=== PATIENT | female | born 1960 | race Caucasian/White ===

== ENCOUNTER 2022-11-07 11:59 | Outpatient (OUT) | payer OTHER, SELFPAY ==
[2022-11-07 12:59] LABS: Basophils Percent Auto 0.8 % (0.2-2.0); Eosinophils Absolute Auto 0.1 10^3/uL (0.0-0.7); Eosinophils Percent Auto 2.5 % (0.9-7.0); Hematocrit 44.1 % (36.0-48.0); Hemoglobin 13.9 g/dL (12.0-16.0); Immature Granulocytes Abs Auto 0.02 10^3/uL (0.00-0.03); Immature Granulocytes Pct Auto 0.4 % (0.0-0.5); Lymphocytes Absolute Auto 1.8 10^3/uL (1.2-3.8); Lymphocytes Percent Auto 34.8 % (20.5-60.0); Mean Corpuscular HGB Conc 31.5 g/dL (29.9-35.2); Mean Corpuscular Volume 91.9 fL (81.0-99.0); Mean Platelet Volume 9.5 fL (9.5-13.5); Monocytes Absolute Auto 0.6 10^3/uL (0.3-0.8); Monocytes Percent Auto 10.8 % (1.7-12.0); Neutrophils Absolute Auto 2.6 10^3/uL (1.4-6.5); Neutrophils Percent Auto 50.7 % (43.0-75.0); Platelet Count 313 10^3/uL (150-450); Red Cell Distribution Width 14.5 % (11.0-15.0); White Blood Count 5.2 10^3/uL (4.0-11.0)
[2022-11-07 13:16] LABS: Alanine Aminotransferase 17 U/L (14-59); Albumin Level 3.8 g/dL (3.4-5.0); Alkaline Phosphatase 59 U/L (46-116); Anion Gap 14.3; Aspartate Amino Transferase 13 U/L (15-37); BUN Creatinine Ratio 26.2; Bilirubin Total 0.3 mg/dL (0.2-1.0); Calcium 9.8 mg/dL (8.5-10.1); Carbon Dioxide 26.7 mmol/L (21.0-32.0); Chloride 100 mmol/L (98-107); Estimated GFR (African America >60 (>=60); Estimated GFR (Non-African Ame >60 (>=60); Globulin 3.9 g/dL; Glucose 100 mg/dL (74-106); Sodium 137 mmol/L (136-145); Total Protein 7.7 g/dL (6.4-8.2)
== END 2022-11-07 12:00 ==
LOC: LAB 12:03
PROVIDERS: PCP Nurse Practitioner; Visit Provider Internal Medicine Hematology & Oncology
DX: C50.912 Malignant neoplasm of unspecified site of left female breast (principal)
CPT/HCPCS: 36415; 80053; 85025

== ENCOUNTER 2022-12-05 07:26 | Outpatient (OUT) | payer OTHER, SELFPAY ==
[2022-12-05 09:55] VITALS: BP 131/84; PULSE 74; RESP 18; TEMP 36.7; O2SAT 97
[2022-12-05] MEDS: DENOSUMAB 60 MG/ML SYRINGE SUBQ (10:03)
--- NOTE | 2022-12-05 10:12 | PC.NURSE ---
Patient is here for prolia injection, she previously had her bloodwork done. She has received Prolia in the past, Injection given, patient tolerated this well. She was observed for 15 minutes after and denies any concerns or complaints. Patient was discharged home.
== END 2022-12-05 07:27 | disposition home or self-care (01) ==
LOC: INF 07:26
PROVIDERS: PCP Nurse Practitioner; Visit Provider Nurse Practitioner
DX: M81.0 Age-related osteoporosis without current pathological fracture (principal); Z85.3 Personal history of malignant neoplasm of breast
CPT/HCPCS: 96372; J0897

== ENCOUNTER 2022-12-19 09:49 | Outpatient (OUT) | payer OTHER, SELFPAY ==
--- NOTE | 2022-12-19 10:01 | XR_ITS ---
[address] [address] Patient Name: SAMPSON MCKENNA MRN: [id number] date: 1960 Sex: F Assigned Patient Location: [facility] Current Patient Location: [facility] Accession/Order Number: [id number] Exam Date: 12/19/2022 10:03 Report Date: 12/19/2022 17:09 At the request of: MARK ANTHONY PATTON Procedure: XR DEXA axial skeleton EXAMINATION: XR DEXA axial skeleton, 12/19/2022 10:03 AM EDT HISTORY: Osteoporosis M81.8 COMPARISON: None. TECHNIQUE: Dual-energy X-ray absorptiometry (DEXA) bone density study performed for the axial skeleton. HISTORY: Osteoporosis M81.8 FINDINGS: Bone mineral density AP spine L2-L4 measures 1.012 g/sq cm. T score -1.6. WHO classification: Osteopenia. Lowest bone mineral densities the right femoral neck measuring 0.771 g/sq cm. T score -1.9. WHO classification: Osteopenia XR/XR DEXA axial skeleton IMPRESSION: Osteopenia. Moderate fracture risk Electronically authenticated by: RANJANA ZHANG Date: 12/19/2022 17:09
== END 2022-12-19 09:50 | disposition home or self-care (01) ==
LOC: RAD 09:49
PROVIDERS: PCP Nurse Practitioner; Visit Provider Internal Medicine Hematology & Oncology
DX: M81.8 Other osteoporosis without current pathological fracture (principal); M85.851 Other specified disorders of bone density and structure, right thigh
CPT/HCPCS: 77080

== ENCOUNTER 2023-05-09 14:37 | Outpatient (OUT) | payer OTHER, SELFPAY ==
[2023-05-09 15:50] LABS: Basophils Percent Auto 0.6 % (0.2-2.0); Eosinophils Absolute Auto 0.1 10^3/uL (0.0-0.7); Eosinophils Percent Auto 1.8 % (0.9-7.0); Hematocrit 43.7 % (36.0-48.0); Hemoglobin 13.8 g/dL (12.0-16.0); Immature Granulocytes Abs Auto 0.01 10^3/uL (0.00-0.03); Immature Granulocytes Pct Auto 0.2 % (0.0-0.5); Lymphocytes Absolute Auto 2.1 10^3/uL (1.2-3.8); Lymphocytes Percent Auto 33.5 % (20.5-60.0); Mean Corpuscular HGB Conc 31.6 g/dL (29.9-35.2); Mean Corpuscular Hemoglobin 28.9 pg (26.7-34.0); Mean Corpuscular Volume 91.4 fL (81.0-99.0); Mean Platelet Volume 9.7 fL (9.5-13.5); Monocytes Absolute Auto 0.6 10^3/uL (0.3-0.8); Monocytes Percent Auto 9.7 % (1.7-12.0); Neutrophils Absolute Auto 3.3 10^3/uL (1.4-6.5); Neutrophils Percent Auto 54.2 % (43.0-75.0); Platelet Count 304 10^3/uL (150-450); Red Blood Count 4.78 10^6/uL (4.20-5.40); Red Cell Distribution Width 13.7 % (11.0-15.0); White Blood Count 6.2 10^3/uL (4.0-11.0)
[2023-05-09 15:57] LABS: Alanine Aminotransferase 28 U/L (14-59); Albumin Globulin Ratio 1.1; Albumin Level 3.9 g/dL (3.4-5.0); Alkaline Phosphatase 47 U/L (46-116); Anion Gap 14.3; Aspartate Amino Transferase 17 U/L (15-37); BUN Creatinine Ratio 20.9; Bilirubin Total 0.4 mg/dL (0.2-1.0); Calcium 9.4 mg/dL (8.5-10.1); Carbon Dioxide 26.5 mmol/L (21.0-32.0); Chloride 102 mmol/L (98-107); Estimated GFR (African America >60 (>=60); Estimated GFR (Non-African Ame >60 (>=60); Globulin 3.7 g/dL; Glucose 110 mg/dL (74-106); Potassium 4.8 mmol/L (3.5-5.1); Sodium 138 mmol/L (136-145); Total Protein 7.6 g/dL (6.4-8.2)
== END 2023-05-09 14:38 | disposition home or self-care (01) ==
LOC: LAB 14:40
PROVIDERS: PCP Nurse Practitioner; Visit Provider Internal Medicine Hematology & Oncology
DX: M81.8 Other osteoporosis without current pathological fracture (principal); C50.912 Malignant neoplasm of unspecified site of left female breast
CPT/HCPCS: 36415; 80053; 85025

== ENCOUNTER 2023-09-29 10:33 | Outpatient (OUT) | payer OTHER, SELFPAY ==
--- NOTE | 2023-09-29 10:50 | MM_ITS ---
Patient Name: SAMPSON MCKENNA MR#: [id number] : 1960 Exam Date: 09/29/2023 Ordering Doctor: KAMILA Aguirre CNP RADIOLOGY REPORT PROCEDURE: MM TOMOSYNTHESIS DIAGNOSTIC BI COMPARISON: MG MAMM DIAGNOSTIC 3D SENIA CAD, 08/14/2022. MG MAMM DIAGNOSTIC 3D SENIA CAD, 08/15/2021. MG MAMM SENIA DIAG W CAD, 02/07/2021. MG MAMM SENIA SCRN W CAD DIG, 10/30/2012. INDICATIONS: History Of Breast Cancer Calculator Name NCI Breast Cancer Risk Assessment Tool 5 Year Breast Cancer Risk 3.90% Lifetime Breast Cancer Risk 17.60% Personal Breast Cancer No Personal Ovarian Cancer No Treatments None Family Cancers Mother with breast cancer at age 40; Father with kidney cancer at age 60. LOCATION: [facility] BREAST COMPOSITION: There are scattered areas of fibroglandular density. FINDINGS: DIAGNOSTIC CATEGORY 2--BENIGN FINDING: RIGHT BREAST: No significant suspicious finding. Scattered benign-appearing calcifications are present. Scattered benign-appearing nodules are present. Stable biopsy marker clips. No significant change has occurred. LEFT BREAST: No significant suspicious finding. Scattered benign-appearing calcifications are present. Stable surgical changes. No significant change has occurred. RECOMMENDATIONS: ROUTINE MAMMOGRAM AND CLINICAL EVALUATION IN 12 MONTHS. PLEASE NOTE: A NORMAL MAMMOGRAM DOES NOT EXCLUDE THE POSSIBILITY OF BREAST CANCER. A CLINICALLY SUSPICIOUS PALPABLE LUMP SHOULD BE BIOPSIED. Dictated by: Kwasi Saleem M.D. on 09/29/2023 at 13:45 Approved by: Kwasi Saleem M.D. on 09/29/2023 at 14:04
[2023-09-29 12:10] LABS: Basophils Percent Auto 0.5 % (0.2-2.0); Eosinophils Absolute Auto 0.2 10^3/uL (0.0-0.7); Eosinophils Percent Auto 2.6 % (0.9-7.0); Hematocrit 44.2 % (36.0-48.0); Hemoglobin 14.2 g/dL (12.0-16.0); Immature Granulocytes Abs Auto 0.02 10^3/uL (0.00-0.03); Immature Granulocytes Pct Auto 0.4 % (0.0-0.5); Lymphocytes Absolute Auto 1.8 10^3/uL (1.2-3.8); Lymphocytes Percent Auto 32.2 % (20.5-60.0); Mean Corpuscular HGB Conc 32.1 g/dL (29.9-35.2); Mean Corpuscular Volume 90.2 fL (81.0-99.0); Mean Platelet Volume 10.9 fL (9.5-13.5); Monocytes Absolute Auto 0.5 10^3/uL (0.3-0.8); Monocytes Percent Auto 9.1 % (1.7-12.0); Neutrophils Absolute Auto 3.2 10^3/uL (1.4-6.5); Neutrophils Percent Auto 55.2 % (43.0-75.0); Platelet Count 243 10^3/uL (150-450); Red Cell Distribution Width 13.2 % (11.0-15.0); White Blood Count 5.7 10^3/uL (4.0-11.0)
[2023-09-29 12:26] LABS: Creatinine Urine Random 22.44 mg/dL (20.00-300.00)
[2023-09-29 12:43] LABS: Bilirubin Urine NEGATIVE (NEGATIVE); Blood Urine NEGATIVE (NEGATIVE); Clarity Urine CLEAR (CLEAR); Color Urine LT. YELLOW (YELLOW); Glucose Urine UA NEGATIVE (NEGATIVE); Ketones Urine NEGATIVE (NEGATIVE); Leukocyte Esterase Urine NEGATIVE (NEGATIVE); Nitrite Urine NEGATIVE (NEGATIVE); Protein Urine NEGATIVE (NEG/TRACE); Urine Microscopic Indicated NO; Urobilinogen Urine 0.2 EU/dL (0.2-1.0); pH Urine 5.5 (5.0-9.0)
[2023-09-29 12:53] LABS: Microalbumin Urine Random <1.3 mg/dL (<=30.0)
[2023-09-29 13:14] LABS: Alanine Aminotransferase 27 U/L (14-59); Albumin Globulin Ratio 1.1; Albumin Level 3.8 g/dL (3.4-5.0); Alkaline Phosphatase 109 U/L (46-116); Anion Gap 15.4; Aspartate Amino Transferase 22 U/L (15-37); BUN Creatinine Ratio 20.3; Bilirubin Total 0.3 mg/dL (0.2-1.0); Calcium 9.9 mg/dL (8.5-10.1); Carbon Dioxide 24.3 mmol/L (21.0-32.0); Chloride 101 mmol/L (98-107); Chol HDL Ratio 5.5; Cholesterol 244 mg/dL (<=200); Estimated GFR (African America >60 (>=60); Estimated GFR (Non-African Ame >60 (>=60); Globulin 3.6 g/dL; Glucose 112 mg/dL (74-106); HDL Cholesterol 44 mg/dL (40-60); Potassium 4.7 mmol/L (3.5-5.1); Sodium 136 mmol/L (136-145); Thyroid Stimulating Hormone 1.268 uIU/mL (0.358-3.740); Total Protein 7.4 g/dL (6.4-8.2); Triglycerides 130 mg/dL (<=150)
[2023-09-29 14:16] LABS: Estimated Average Glucose 137 mg/dL; Glycohemoglobin A1C 6.4 % (4.5-6.2)
[2023-09-29 14:26] LABS: Free T4 1.32 ng/dL (0.76-1.46)
== END 2023-09-29 10:34 | disposition home or self-care (01) ==
LOC: MAMMO 10:34
PROVIDERS: PCP Nurse Practitioner; Visit Provider Nurse Practitioner
DX: Z12.31 Encounter for screening mammogram for malignant neoplasm of breast (principal); C50.912 Malignant neoplasm of unspecified site of left female breast; Z85.3 Personal history of malignant neoplasm of breast; M81.8 Other osteoporosis without current pathological fracture; K21.9 Gastro-esophageal reflux disease without esophagitis; E03.9 Hypothyroidism, unspecified; R73.03 Prediabetes; E55.9 Vitamin D deficiency, unspecified; Z80.3 Family history of malignant neoplasm of breast; Z80.51 Family history of malignant neoplasm of kidney
CPT/HCPCS: 36415; 77066; 80053; 80061; 81003; 82043; 82306; 82570; 83036; 84439; 84443; 85025; G0279

== ENCOUNTER 2023-11-13 12:35 | Outpatient (OUT) | payer OTHER, SELFPAY ==
--- OUTSIDE RECORDS SUMMARY | 2023-11-13 12:49 | XMS_ITS | CCD ---
Author Organization [facility] Care Team Providers Care Sandblast Operator Name Role Phone David Tamez Primary Care Provider Rosemary ROSS, Rodrick Unavailable Wilman ORTEGA, Stephanie Unavailable [phone] O[address] WONGN.TIRE BAGGER, Samson Unavailable Varun ROSS, Brad Unavailable RODRICK PATTON Admitting Unavailable DR LALO SALEEM Consulting Unavailable ABHYMANAN, RODRICK Attending Unavailable AICHHOLZ, TIRE BAGGER CURTIS Primary Care Unavailable HYMANAN RODRICK Consulting Unavailable AICHHOLZ, TIRE BAGGER CURTIS Attending Unavailable AICHHOLZ, TIRE BAGGER CURTIS Consulting Unavailable AICHHOLZ, TIRE BAGGER CURTIS Primary Care Unavailable AICHHOLZ, TIRE BAGGER CURTIS Admitting Unavailable AICHHOLZ, TIRE BAGGER CURTIS Attending Unavailable AICHHOLZ, TIRE BAGGER CURTIS Consulting Unavailable AICHHOLZ, TIRE BAGGER CURTIS Primary Care Unavailable AICHHOLZ, TIRE BAGGER CURTIS Admitting Unavailable AICHHOLZ, TIRE BAGGER CURTIS Primary Care Unavailable DR RANJANA ZHANG V Consulting Unavailable FAWWAD, ESCOBAR H Admitting Unavailable FAWWAD, ESCOBAR H Attending Unavailable FAWWAD, ESCOBAR H Consulting Unavailable DR RANJANA ZHANG V Consulting Unavailable POOL, GAYATRI Admitting Unavailable AICHHOLZ, TIRE BAGGER CURTIS Primary Care Unavailable POOL, GAYATRI Attending Unavailable POOL, GAYATRI Consulting Unavailable AICHHOLZ, TIRE BAGGER CURTIS Attending Unavailable AICHHOLZ, TIRE BAGGER CURTIS Primary Care Unavailable AICHHOLZ, TIRE BAGGER CURTIS Admitting Unavailable AICHHOLZ, TIRE BAGGER CURTIS Attending Unavailable AICHHOLZ, TIRE BAGGER CURTIS Primary Care Unavailable AICHHOLZ, TIRE BAGGER CURTIS Consulting Unavailable AICHHOLZ, TIRE BAGGER CURTIS Admitting Unavailable AICHHOLZ, TIRE BAGGER CURTIS Primary Care Unavailable LE CENTER, DR RANJANA Crawford Consulting Unavailable GAYATRI LANZA Admitting Unavailable GAYATRI LANZA Attending Unavailable GAYATRI LANZA Consulting Unavailable David Tamez Primary Care Provider ABHYANKAR, RODRICK Referring Unavailable SUSANAAR, RODRICK Attending Unavailable DAVID TAMEZ Primary Care Unavailable DAVID TAMEZ Primary Care Unavailable ABHYANKAR, RODRICK Referring Unavailable ABHYANKAR, RODRICK Attending Unavailable DAVID TAMEZ Primary Care Unavailable ABHYANKAR, RODRICK Referring Unavailable AICJOSH, CURTIS Attending Unavailable Allergies Allergy Classification Reported Allergen(s) Allergy Type Date of Onset Reaction(s) Facility (8 sources) Codeine; Translations: [CODEINE] Drug Allergy 08-26-2019 Vomiting [facility] (8 sources) Adhesive Tape-Silicones; Translations: [ADHESIVE TAPE-SILICONES] Drug Allergy 09-20-2019 Rash, Itching [facility] (1 source) Adhesive bandage Drug allergy (disorder) 09-14-2019 [facility] (1 source) Codeine Drug Allergy 08-26-2019 [facility] Repository Medications Completed/Discontinued Medications Medication Drug Class(es) Dates Sig (Normalized) Sig (Original) anastrozole 1 mg oral tablet (8 sources) Aromatase Inhibitor Start: 11-08-2021 End: 11-29-2022 anastrozole (ARIMIDEX) 1 mg tablet Indications: Invasive ductal carcinoma of left breast (HCC) TAKE 1 TABLET ONCE DAILY 90 tablet 3 11/29/2022 Active Comment on above: Take 1 tablet by inessa th once daily. TAKE 1 TABLET ONCE D AILY Biotin (7 sources) BIOTIN ORAL Take by mouth. 0 Active Comment on above: Take by mouth. calcium carbonate 1000 mg oral tablet (7 sources) take 1000 mg by mouth once daily calcium carbonate (CALCIUM 500 ORAL) Take 1,000 mg by mouth once daily. 0 Active Comment on above: Take 1,000 mg by inessa th once daily. cholecalciferol 0.125 mg oral tablet (7 sources) Vitamin D take 2 tablets by mouth twice daily cholecalciferol (VITAMIN D3) 5,000 unit tab Take 10,000 Units by mouth twice daily. 0 Active Comment on above: Take 10,000 Units by mouth twice daily. famotidine 20 mg oral tablet (7 sources) Histamine-2 Receptor Antagonist take 1 tablet by mouth twice daily famotidine (PEPCID) 20 mg tablet Take 20 mg by mouth twice daily. 0 Active Comment on above: Take 20 mg by mouth twice daily. fexofenadine (4 sources) Histamine-1 Receptor Antagonist fexofenadine HCl (FEXOFENADINE ORAL) Take by mouth. 0 Active Comment on above: Take by mouth. hydrOXYzine hydrochloride 25 mg oral tablet (7 sources) Antihistamine Start: 07-17-2020 take 1 tablet by mouth once daily at bedtime hydrOXYzine HCl (ATARAX) 25 mg tablet Take 1 tablet by mouth daily at bedtime. 30 tablet 1 07/17/2020 Active Comment on above: Take 1 tablet by inessa th daily at bedtime. levothyroxine sodium 0.075 mg oral tablet (7 sources) l-Thyroxine take 1 tablet by mouth once daily before breakfast levothyroxine (SYNTHROID) 75 mcg tablet Take 75 mcg by mouth daily before breakfast. 0 Active Comment on above: Take 75 mcg by mouth daily before breakfast. loratadine 10 mg oral capsule (7 sources) take 1 capsule by mouth once daily loratadine 10 mg cap Take 10 mg by mouth once daily. 0 Active Comment on above: Take 10 mg by mouth once daily. Magnesium (7 sources) Magnesium 250 mg tab Take 250 mg by mouth. 0 Active Comment on above: Take 250 mg by mouth . Turmeric extract (7 sources) TURMERIC ORAL Ta ke by mouth. 0 Active Comment on above: Take by mouth. Vitamin B Complex (7 sources) vitamin B comple x (B COMPLEX 1 ORAL) Take by mouth. 0 Active Comment on above: Take by mouth. Problems Active Problems Problem Classification Problem Date Documented Da te Episodic/Chronic Cancer of breast (14 sources) Infiltrating duct carcinoma of breast; Translations: [Malignant neoplasm of unspecified site of left female breast] Onset: 10-07-2019 10-07-2019 Chronic Nutritional deficiencies (1 source) Vitamin D deficiency, unspecified; Translations: [VITAMIN D DEFICIENCY UNSPECIFIED] Onset: 09-06-2022 Chronic Osteoporosis (11 sources) Osteoporosis; Translations: [Other osteoporosis without current pathological fracture] Onset: 01-01-2021 01-01-2021 Chronic Other screening for suspected conditions (not mental disorders or infectious disease) (4 sources) Encounter for screening for malignant neoplasm of cervix; Translations: [ENC SCREENING MALIG NEOPLASM CERV] Onset: 08-29-2022 Episodic Past or Other Problems Problem Classification Problem Date Documented Da te Episodic/Chronic Cancer of breast (1 source) Personal history of malignant neoplasm of breast; Translations: [PERS HX MALIGNANT NEOPLASM BREAST] Onset: 05-23-2022 Episodic Fracture of lower limb (5 sources) Displaced fracture of proximal phalanx of right lesser toe(s), subsequent encounter for fracture with routine healing; Translations: [Displaced fracture of proximal phalanx of right lesser toe(s), initial encounter for closed fracture] Onset: 12-17-2021 Episodic Other connective tissue disease (4 sources) Pain in right foot; Translations: [PAIN IN RIGHT FOOT] Onset: 12-25-2021 Episodic Results Test Name Value Interpretation Reference Range Facility [facility] TINY MCKENNA ([id number]) 1960 F Date Time Provider Department 07/15/23 KOSTAS FALK During your visit today, we recorded the following information about you: Kostas Falk RN 07/15/2023 3:26 PM Signed Pt sent MyChart with Brand Marketing Specialist information: The post acute care registered nurse is Dr Aidan Resendiz, phone is [phone] email is [email or web address] I have another consultation with him on Friday, 07/18. Thank you, Annette Mckenna 05/15/23 Office Note per Cipriano: She needs clearance from me for dental work due to her Prolia use. Her last dose of Prolia was in 11/2022, next is planned for 06/2023. If she is going to proceed with the dental work, she should hold June's dose and wait until for the procedure Cipriano: pt is requesting the letter of clearance. Pended letter; please review under communication and let me know if you would like any changes. Rodrick Patton MD 07/15/2023 6:41 PM Signed She can proceed from my standpoint as long as you take precautions in wound healing for her jaw which I'm sure you're aware of. Just add that line and should be great - Thanks! Kostas Falk RN 07/16/2023 9:26 AM Signed Note completed, review and signed. Faxed to Dr Resendiz office. Kostas Falk RN Allergies As of Date: 07/15/2023 Noted Allergy Reaction ADHESIVE TAPE-SILICONES 09/20/2019 2 - Rash 9 - Itching CODEINE 08/26/2019 11 - Vomiting Date Reviewed: 05/15/2023 Reviewed by: Paulina Fry - Fully Assessed Reason for Visit: Brand Marketing Specialist [Other] Prescriptions as of 07/16/2023 - anastrozole (ARIMIDEX) 1 mg tablet TAKE 1 TABLET ONCE DAILY - fexofenadine HCl (FEXOFENADINE ORAL) Take by mouth. - Magnesium 250 mg tab Take 250 mg by mouth. - calcium carbonate (CALCIUM 500 ORAL) Take 1,000 mg by mouth once daily. - hydrOXYzine HCl (ATARAX) 25 mg tablet Take 1 tablet by mouth daily at bedtime. - vitamin B complex (B COMPLEX 1 ORAL) Take by mouth. - TURMERIC ORAL Take by mouth. - BIOTIN ORAL Take by mouth. - levothyroxine (SYNTHROID) 75 mcg tablet Take 75 mcg by mouth daily before breakfast. - loratadine 10 mg cap Take 10 mg by mouth once daily. - famotidine (PEPCID) 20 mg tablet Take 20 mg by mouth twice daily. - cholecalciferol (VITAMIN D3) 5,000 unit tab Take 10,000 Units by mouth twice daily. Problem List As Of Date 07/15/2023 Noted Resolved Invasive ductal carcinoma of left breast (HCC) *10/07/2019 Other osteoporosis without current pathological*01/02/20 21 Letter Text Encounter Status:Closed by KOSTAS FALK on 07/16/23 [facility] 05-15-2023 [facility] Visit (SP) Office ([place]) TINY MCKENNA ([id number]) 1960 F Date Time Provider Department 05/15/23 10:30 AM RODRICK PATTON During your visit today, we recorded the following information about you: Temperature Pulse Respiration Blood pressure 97.8 degrees 71/minute 18/minute 137/89 Weight Height 68.2 kg 1.64 m Rodrick Patton MD 05/15/2023 8:36 PM Signed NAME: Tiny Mckenna CLINIC NO.: [id number] DATE OF SERVICE: May 15, 2023 ([facility]) Some elements in this clinic note that are critical to medical decision making have been carefully reviewed and included from a prior clinic note dated: November 14, 2022 (Rosemary) Referring Provider: Dr. 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 Tumor was in the axillary tail with no clinical evidence of axillary LN's. OncotypeDX RS (49) was High and therefore we gave her neoadjuvant therapy after discussion at tumor board. She had had an excellent clinical response to neoadjuvant chemotherapy. 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 She completed adjuvant radiation on 04/04/2020 and also adjuvant Xeloda 1500 mg BID x 14 days every 21 day cycle for 8 cycles. (EXTENET). 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 Dose reduction has helped significantly although she continued to have issues with constipation. She additionally has had palpable hepatomegaly of unclear etiology - this was not palpable on exam 11/22/2021. Repeat Dexa in 11/2022 PLAN: RTC in 6 months for labs and exam Hold Anastrozole for 2 weeks. Hold Prolia until dental procedure is completed and resume after next DXA in 12/2023 DXA ordered, scheduled for 12/2023 at [facility]. HPI: Case History: 06/05/2020- 11/13/2020: adjuvant Xeloda 1500 mg BID X 14 days every 21 days x 8 cycles; dose reduced to 1000mg BID x 14 days on and 7 days off with cycle 5. 03/08/2020 - 04/04/2020: adjuvant radiation Left breast 4005cGy in 15 fractions with surgical cavity boost 1000 cGy in 5 fractions 10/11/2019 - 12/13/2019: Neoadjuvant taxotere + cytoxan ?4 cycles 09/30/2019 bilateral MRI breast: Enhancing mass at the site of palpable concern at the superior slightly medial left breast. Within the left breast at approximately the 11:00 position at the site of palpable concern there is a lobulated mass like area measuring 2.1 x 2.8 x 2.3 cm. This shows mixed signal and there is associated enhancement. On the sagittal sequence the lesion extends close to the pectoralis muscle. There are axillary lymph nodes with fatty luis angel. No suspicious MRI findings on the right breast. 08/26/2019 bilateral diagnostic mammography: [facility]. Right breast with mild architectural distortion which improves with rolled views, likely related to implant removal. 1.5 cm rounded mass upper breast on MLO projection. Ultrasound shows at 11:00 a 1.3 x 1.6 x 1.2 cm hypoechoic mass with acoustic shadowing. Left breast with mild architectural distortion which improves with rolled views, likely related to implant removal. Corresponding to the patient's palpable mass, demarcated with a triangle marker is a 2 cm oval lobular mass upper breast on MLO projection. Ultrasound shows at 12:00 a 1.9 x 1.8 x 2.0 cm lobular hard hypochromic mass with mild acoustic shadowing. Core biopsy was recommended. Updated Visit, May 15, 2023: Delia returns today with Garrett. She is doing fine with the Anastrozole, other than feeling much more fatigued the past few months. I would advise her to hold the Anastrozole for 2 weeks to see if there is improvement, and if none she can restart it after that. If this does roller turner to be the cause, we will plan to switch to an alternative. She feels she is sleeping okay. Wakes up feeling very groggy, but does not have any problems with falling asleep during the day. Denies noticing any severe drowsiness while driving. She needs clearance from me for dental work due to her Prolia use. Her last dose of Prolia was in 11/2022, next is planned for 06/2023. If she is going to proceed with the dental work, she should hold June's dose and wait until for the procedure. She reports some weight gain despite continuing Keto diet and intermittent fasting. She has not been exercising as frequently. I recommended looking out for any signs of RACHEAL. Reports increased s (more content not included)... Normal [facility] ([id number]) 1960 F Date Time Provider Department 05/15/23 [facility] During your visit today, we recorded the following information about you: Lamont Christine 05/15/2023 11:29 AM Signed DXA ordered, scheduled for 12/2023 at [facility]. CIPRIANO: Patient just had a DEXA scan this year, November 2022 so she will not be due until 2024 - also insurances typically only cover every 2 years. Is there a reason we are doing earlier? Also, patient would like her labs drawn at [place] prior to 6 month follow up due to insurance purposes. Can you please place her labs orders and I will have those mailed to her? Thanks! Rodrick Mckenzie MD 05/15/2023 1:04 PM Signed Orders entered! thanks Lamont Christine 05/15/2023 4:42 PM Signed OK for DEXA to be 2024 or is she having something new going on where it needs sooner? Rodrick Mckenzie MD 05/15/2023 4:54 PM Signed Sorry - 2024 is good Lamont Christine 05/16/2023 10:05 AM Signed Patient notified and in agreement. Mailed lab orders to her at her request. Lamont Christine Allergies As of Date: 05/15/2023 Noted Allergy Reaction ADHESIVE TAPE-SILICONES 09/20/2019 2 - Rash 9 - Itching CODEINE 08/26/2019 11 - Vomiting Date Reviewed: 05/15/2023 Reviewed by: Paulina Fry - Fully Assessed Reason for Visit: Orders [681] Primary Visit Diagnosis:Invasive ductal carcinoma of left breast (HCC) [C50.912] Other Visit Diagnosis:Other osteoporosis without current pathological fracture [M81.8] Order(s):COMP METABOLIC PANEL [SQCMP] Order #: [id number] FUTURE CBC + DIFF [SQCBCDIF] Order #: [id number] FUTURE CA 15-3 BLD [JBCJ918] Order #: [id number] FUTURE CA 27.29 BLOOD [[id number]] Order #: [id number] FUTURE VITAMIN D 25 HYDROXY [SQVITD] Order #: [id number] FUTURE Prescriptions as of 05/16/2023 - anastrozole (ARIMIDEX) 1 mg tablet TAKE 1 TABLET ONCE DAILY - fexofenadine HCl (FEXOFENADINE ORAL) Take by mouth. - Magnesium 250 mg tab Take 250 mg by mouth. - calcium carbonate (CALCIUM 500 ORAL) Take 1,000 mg by mouth once daily. - hydrOXYzine HCl (ATARAX) 25 mg tablet Take 1 tablet by mouth daily at bedtime. - vitamin B complex (B COMPLEX 1 ORAL) Take by mouth. - TURMERIC ORAL Take by mouth. - BIOTIN ORAL Take by mouth. - levothyroxine (SYNTHROID) 75 mcg tablet Take 75 mcg by mouth daily before breakfast. - loratadine 10 mg cap Take 10 mg by mouth once daily. - famotidine (PEPCID) 20 mg tablet Take 20 mg by mouth twice daily. - cholecalciferol (VITAMIN D3) 5,000 unit tab Take 10,000 Units by mouth twice daily. Problem List As Of Date 05/15/2023 Noted Resolved Invasive ductal carcinoma of left breast (HCC) *10/07/2019 Other osteoporosis without current pathological*01/02/20 21 Encounter Status:Closed by LAMONT CHRISTINE on 05/16/23 [facility] CNOVSP[facility] 11-14-2022 [facility] Visit (SP) Office ([place]) TINY MCKENNA ([id number]) 1960 F Date Time Provider Department 11/14/22 10:00 AM RODRICK PATTON During your visit today, we recorded the following information about you: Temperature Pulse Respiration Blood pressure 97.8 degrees 68/minute 16/minute 128/80 Weight Height 64.6 kg 1.64 m Rodrick Patton MD 11/14/2022 11:47 AM Signed NAME: Tiny Mckenna CLINIC NO.: [id number] DATE OF SERVICE: November 14, 2022 ([facility]) Some elements in this clinic note that are critical to medical decision making have been carefully reviewed and included from a prior clinic note dated: May 16, 2022 ([facility]) Referring Provider: Dr. 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 Tumor was in the axillary tail with no clinical evidence of axillary LN's. OncotypeDX RS (49) was High and therefore we gave her neoadjuvant therapy after discussion at tumor board. She had had an excellent clinical response to neoadjuvant chemotherapy. 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 She completed adjuvant radiation on 04/04/2020 and also adjuvant Xeloda 1500 mg BID x 14 days every 21 day cycle for 8 cycles. (EXTENET). 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 Dose reduction has helped significantly although she continued to have issues with constipation. She additionally has had palpable hepatomegaly of unclear etiology - this was not palpable on exam 11/22/2021. Repeat Dexa in 11/2022 PLAN: RTC in 6 months for labs and examine Continue Anastrozole. Continue Prolia - at [facility] every 6 months Will order Dexa at next visit. TREATMENT TO DATE: 3. 06/05/2020- 11/13/2020: adjuvant Xeloda 1500 mg BID X 14 days every 21 days x 8 cycles; dose reduced to 1000mg BID x 14 days on and 7 days off with cycle 5. 2. 03/08/2020-04/04/2020: adjuvant radiation Left breast 4005cGy in 15 fractions with surgical cavity boost 1000 cGy in 5 fractions 1. 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 Mammogram in July was negative. Got back from a wonderful trip to [place] and [place]. Updated Visit, May 16, 2022: Returns with Garrett. Survived COVID infection from end of March. Otherwise is doing well. No joint aches or pains from Arimidex. [id number] a few days ago at age 89 so some family stress. Otherwise doing well. Still hasn't been approved for Prolia from January. 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 After discussion at multidisciplinary tumor board, we gave her neoadjuvant chemotherapy with excellent response noted at time of surgery however, had residual 1.5 cm ER + tumor and so completed extended adjuvant therapy following radiation according to EXTENET trial through 10/2020. She is doing very well. Her Garrett was unable to accompany her today. We reviewed her Mammograms with right axillary tail stable density noted on report which is not not palpable on exam completed today. Looks like she has lost weight Blood sugars are still elevated despite fasting. She may need to pursue this with her PCP. I recall the concern for fatty liver in the past but she is taken extensive measures to change her diet in order to correct this. It is likely worthwhile to look into this more. She will pursue this with her PCP. Updated Visit, May 24, 2021: Delia is generally doing well. But is anxious about her health insurance changes that might push her out of the [facility] system. I reassured her that she will still be able to obtain good care if she had to switch. Needs to figure out insurance and rescheduling her mamograms - will need prolia outside of [facility]. Chaperoned breast exam was completed today. Updated Visit, February 19, 2021: Doing well overall and we've reviewed mammograms that show some new benign calcification of the right breast as well as surgical changes in the left. Will obtain 6 month mammography for repeat. 12/18/2020 Bone density + osteoporosis of the spine with high risk of fracture. Scheduled for Prolia today and has been taking Vit D + Calcium. Joint pain and aches (more content not included)... Normal [facility] David 11-07-2022 [facility] BALATINY Mackay ([id number]) 1960 F Date Time Provider Department 11/07/22 KOSTAS FALK During your visit today, we recorded the following information about you: Ksotas Falk RN 11/07/2022 11:53 AM Signed Pt requests lab orders faxed to [facility]. Done Kostas Falk RN Allergies As of Date: 11/07/2022 Noted Allergy Reaction ADHESIVE TAPE-SILICONES 09/20/2019 2 - Rash 9 - Itching CODEINE 08/26/2019 11 - Vomiting Date Reviewed: 05/16/2022 Reviewed by: Magdalena Chacon Ma - Fully Assessed Reason for Visit: Orders [681] Prescriptions as of 11/07/2022 - anastrozole (ARIMIDEX) 1 mg tablet Take 1 tablet by mouth once daily. - Magnesium 250 mg tab Take 250 mg by mouth. - calcium carbonate (CALCIUM 500 ORAL) Take 1,000 mg by mouth once daily. - hydrOXYzine HCl (ATARAX) 25 mg tablet Take 1 tablet by mouth daily at bedtime. - vitamin B complex (B COMPLEX 1 ORAL) Take by mouth. - TURMERIC ORAL Take by mouth. - BIOTIN ORAL Take by mouth. - levothyroxine (SYNTHROID) 75 mcg tablet Take 75 mcg by mouth daily before breakfast. - loratadine 10 mg cap Take 10 mg by mouth once daily. - famotidine (PEPCID) 20 mg tablet Take 20 mg by mouth twice daily. - cholecalciferol (VITAMIN D3) 5,000 unit tab Take 10,000 Units by mouth twice daily. Problem List As Of Date 11/07/2022 Noted Resolved Invasive ductal carcinoma of left breast (HCC) *10/07/2019 Other osteoporosis without current pathological*01/02/20 Encounter Status:Closed by KOSTAS FALK on 11/07/22 Normal [facility] PAP ACOG PANEL 2: 30 to 66on 09-05-2022 . . Normal [facility] Comment on above: Result Comment: Perf ormed at: [facility] Performed By: #### [id number] #### [employer] [facility] [address] [place] [address] Dr. Shashi Cohen Age Gdln ACOG Testing 30-65 Normal [facility] Comment on above: Performed By: #### [id number] #### [facility] [address] [place] [address] Dr. Shashi Cohen DIAGNOSIS: Comment Normal [facility] Comment on above: Result Comment: NEGA TIVE FOR INTRAEPITHELIAL LESION OR MALIGNANCY. Performed at: WB Performed By: #### [id number] #### [facility] [address] [place] [address] Dr. Shashi Cohen HPV Aptima Negative Normal Negative [facility] Comment on above: Result Comment: This nucleic acid amplification test detects fourteen high-risk HPV types (16,18,31,33,35,39,45,51,52,56,58,59,66,68) without differentiation. Performed at: =G Performed By: #### [id number] #### [facility] [address] [place] [address] Dr. Shashi Cohen HPV Genotype Reflex Comment Normal [facility] Comment on above: Result Comment: Crit eria not met, HPV Genotype not performed. Performed at: WB Performed By: #### [id number] #### [facility] [address] [place] [address] Dr. Shashi Cohen Methodology: Comment Normal [facility] Comment on above: Result Comment: This liquid based ThinPrep(R) pap test was screened with the use of an image guided system. Performed at: WB Performed By: #### [id number] #### [facility] [address] [place] [address] Dr. Shashi Cohen Note: Comment Normal [facility] Comment on above: Result Comment: The Pap smear is a screening test designed to aid in the detection of premalignant and malignant conditions of the uterine cervix. It is not a diagnostic procedure and should not be used as the sole means of detecting cervical cancer. Both false-positive and false-negative reports do occur. . Performed at: WB Performed By: #### [id number] #### [facility] [address] [place] [address] Dr. Shashi Cohen Performed by: Comment Normal [facility] Comment on above: Result Comment: Sujata Shahid, Soda Room Operator (ASCP) Performed at: WB Performed By: #### [id number] #### [facility] [address] [place] [address] Dr. Shashi Cohen Specimen adequacy: Comment Normal [facility] Comment on above: Result Comment: Sati sfactory for evaluation. Performed at: WB Performed By: #### [id number] #### [facility] [address] [place] [address] Dr. Shashi Cohen CBC AUTO DIFFon 08-29-2022 BASO # 0.0 103/ul Normal 0.0-0.1 [facility] Comment on above: Performed By: #### C BC #### [facility] [address] [place] [address] Dr. Shashi Cohen Basophils/100 WBC (Bld) 0.7 % Normal 0.2-2.0 [facility] Comment on above: Performed By: #### C BC #### [facility] [address] [place] [address] Dr. Shashi Cohen EO # 0.1 103/ul Normal 0.0-0.7 [facility] Comment on above: Performed By: #### C BC #### [facility] [address] [place] [address] Dr. Shashi Cohen Eosinophils/100 WBC (Bld) 1.4 % Normal 0.9-7.0 [facility] Comment on above: Performed By: #### C BC #### [facility] [address] [place] [address] Dr. Shashi Cohen Erythrocyte distribution width (RBC) [Ratio] 13.7 % Normal 11.0-15.0 [facility] Comment on above: Performed By: #### C BC #### [facility] [address] [place] [address] Dr. Shashi Cohen Hematocrit (Bld) [Volume fraction] 43.9 % Normal 36.0-48.0 [facility] Comment on above: Performed By: #### C BC #### [facility] [address] [place] [address] Dr. Shashi Cohen Hemoglobin (Bld) [Mass/Vol] 14.1 g/dL Normal 12.0-16.0 [facility] Comment on above: Performed By: #### C BC #### [facility] [address] [place] [address] Dr. Shashi Cohen IG # 0.02 10e3/ul Normal 0.00-0.03 [facility] Comment on above: Performed By: #### C BC #### [facility] [address] [place] [address] Dr. Shashi Cohen IG % 0.4 % Normal 0.0-0.5 [facility] Comment on above: Performed By: #### C BC #### [facility] [address] [place] [address] Dr. Shashi Cohen LYMPH # 1.9 103/ul Normal 1.2-3.8 [facility] Comment on above: Performed By: #### C BC #### [facility] [address] [place] [address] Dr. Shashi Cohen Lymphocytes/100 WBC (Bld) 33.2 % Normal 20.5-60.0 [facility] Comment on above: Performed By: #### C BC #### [facility] [address] [place] [address] Dr. Shashi Cohen MANUAL DIFF REQ NO Normal [facility] Comment on above: Performed By: #### C BC #### [facility] [address] [place] [address] Dr. Shashi Cohen MCH (RBC) [Entitic mass] 28.7 pg Normal 26.7-34.0 [facility] Comment on above: Performed By: #### C BC #### [facility] [address] [place] [address] Dr. Shashi Cohen MCHC (RBC) [Mass/Vol] 32.1 g/dL Normal 29.9-35.2 [facility] Comment on above: Performed By: #### C BC #### [facility] [address] [place] [address] Dr. Shashi Cohen MCV (RBC) [Entitic vol] 89.2 fL Normal 81.0-99.0 [facility] Comment on above: Performed By: #### C BC #### [facility] [address] [place] [address] Dr. Shashi Cohen MONO # 0.5 103/ul Normal 0.3-0.8 [facility] Comment on above: Performed By: #### C BC #### [facility] [address] [place] [address] Dr. Shashi Cohen Monocytes/100 WBC (Bld) 8.8 % Normal 1.7-12.0 [facility] Comment on above: Performed By: #### C BC #### [facility] [address] [place] [address] Dr. Shashi Cohen NEUT # 3.1 103/ul Normal 1.4-6.5 [facility] Comment on above: Performed By: #### C BC #### [facility] [address] [place] [address] Dr. Shashi Cohen Neutrophils/100 WBC (Bld) 55.5 % Normal 43.0-75.0 [facility] Comment on above: Performed By: #### C BC #### [facility] [address] [place] [address] Dr. Shashi Cohen Platelet mean volume (Bld) [Entitic vol] 9.9 fL Normal 9.5-13.5 [facility] Comment on above: Performed By: #### C BC #### [facility] [address] [place] [address] Dr. Shashi Cohen PLT 244 103/ul Normal 150-450 [facility] Comment on above: Performed By: #### C BC #### [facility] [address] [place] [address] Dr. Shashi Cohen RBC 4.92 106/ul Normal 4.20-5.40 [facility] Comment on above: Performed By: #### C BC #### [facility] [address] [place] [address] Dr. Shashi Cohen WBC 5.6 103/ul Normal 4.0-11.0 [facility] Comment on above: Performed By: #### C BC #### [facility] [address] [address] [address] Shashi Cohen GLYCOHEMOGLOBIN A1Con 2022 ADA RECOMMENDATION SEE BELOW Normal [facility] Comment on above: Result Comment: ADA RECOMMENDED LIMIT 4.0 - 6.0 ADA THERAPEUTIC TARGET < 7.0 ACTION SUGGESTED > 7.0 Performed By: #### A 1C ####[facility] [id number] [address]Dr. Shashi Cohen Glucose [Mass/Vol] 126 mg/dL Normal [facility] Comment on above: Performed By: #### A 1C ####[facility] [id number] [address]Dr. Shashi Cohen HbA1c (Bld) [Mass fraction] 6.0 % Normal 4.5-6.2 [facility] Comment on above: Performed By: #### A 1C ####[facility] [id number] [address]Dr. Shashi Cohen LIPID PROFILEon 08-29-2022 CHOL-HDL RATIO NORM SEE BELOW Normal [facility] Comment on above: Result Comment: 3.3 - 4.4 LOW RISK 4.4 - 7.1 AVERAGE RISK 7.1 - 11.0 MODERATE RISK >11.0 HIGH RISK Performed By: #### T SH, CMP, LIPID #### [facility] [address] [address] [address] Shashi Cohen Cholesterol [Mass/Vol] 186 mg/dL Normal <=200 [facility] Comment on above: Performed By: #### T SH, CMP, LIPID #### [facility] [address] [address] [address] Shashi Cohen Cholesterol in HDL [Mass/Vol] 43 mg/dL Normal 40-60 [facility] Comment on above: Performed By: #### T SH, CMP, LIPID #### [facility] [address] [address] [address] Shashi Cohen Cholesterol in LDL [Mass/Vol] 129.2 mg/dL Normal [facility] Comment on above: Performed By: #### T SH, CMP, LIPID #### [facility] [address] [address] [address] Shashi Cohen Cholesterol.total/Ch olesterol in HDL [Mass ratio] 4.3 {ratio} Normal [facility] Comment on above: Performed By: #### T SH, CMP, LIPID #### [facility] [address] [address] [address] Shashi Cohen HDL NORMAL > or = 60 mg/dl - LO W CARDIOVASCULAR RISK <40 mg/dl - HIGH CARDIOVASCULAR RISK Normal [facility] Comment on above: Performed By: #### T SH, CMP, LIPID #### [facility] [address] [address] [address] Shashi Cohen LDL CALC NORMAL SEE BELOW Normal [facility] Comment on above: Result Comment: <100 mg/dl OPTIMAL 100 - 129 mg/dl NEAR OR ABOVE OPTIMAL 130 - 159 mg/dl BORDERLINE HIGH 160 - 189 mg/dl HIGH >190 mg/dl VERY HIGH Performed By: #### T SH, CMP, LIPID #### [facility] [address] [address] [address] Shashi Cohen Triglyceride [Mass/Vol] 69 mg/dL Normal <=150 [facility] Comment on above: Performed By: #### T SH, CMP, LIPID #### [facility] [address] [address] [address] Shashi Cohen VLDL CALC 13.8 mg/dL Normal [facility] Comment on above: Performed By: #### T ANDREEA, CMP, LIPID #### [facility] [address] [address] [address] Shashi Cohen PROF 14(COMP METB)on 023 Albumin [Mass/Vol] 3.9 g/dL Normal 3.4-5.0 [facility] Comment on above: Performed By: #### T SH, CMP, LIPID #### [facility] [address] [place] [address] Dr. Shashi Cohen Albumin/Globulin [Mass ratio] 1.1 {ratio} Normal [facility] Comment on above: Performed By: #### T SH, CMP, LIPID #### [facility] [address] [address] [address] Shashi Cohen ALP [Catalytic activity/Vol] 63 U/L Normal 46-116 [facility] Comment on above: Performed By: #### T SH, CMP, LIPID #### [facility] [address] [address] [address] Shashi Cohen ALT [Catalytic activity/Vol] 23 U/L Normal 14-59 [facility] Comment on above: Performed By: #### T SH, CMP, LIPID #### [facility] [address] [address] [address] Shashi Cohen Anion gap [Moles/Vol] 15.6 mmol/L Normal [facility] Comment on above: Performed By: #### T SH, CMP, LIPID #### [facility] [address] [address] [address] Shashi Cohen AST [Catalytic activity/Vol] 12 U/L Critically low 15-37 [facility] Comment on above: Performed By: #### T SH, CMP, LIPID #### [facility] [address] [address] [address] Shashi Cohen Bilirubin [Mass/Vol] 0.3 mg/dL Normal 0.2-1.0 [facility] Comment on above: Performed By: #### T SH, CMP, LIPID #### [facility] [address] [address] [address] Shashi Cohen Calcium [Mass/Vol] 9.1 mg/dL Normal 8.5-10.1 [facility] Comment on above: Performed By: #### T SH, CMP, LIPID #### [facility] [address] [address] [address] Shashi Cohen Chloride [Moles/Vol] 102 mmol/L Normal 98-107 [facility] Comment on above: Performed By: #### T SH, CMP, LIPID #### [facility] [address] [address] [address] Shashi Cohen CO2 [Moles/Vol] 25.4 mmol/L Normal 21.0-32.0 [facility] Comment on above: Performed By: #### T SH, CMP, LIPID #### [facility] [address] [address] [address] Shashi Cohen Creatinine [Mass/Vol] 0.55 mg/dL Normal 0.55-1.02 [facility] Comment on above: Performed By: #### T SH, CMP, LIPID #### [facility] [address] [address] [address] Shashi Cohen EGFR-AF ANDORRAN >60 Normal >=60 [facility] Comment on above: Performed By: #### T SH, CMP, LIPID #### [facility] [address] [address] [address] Shashi Cohen EGFR-NON AF ANDORRAN >60 Normal >=60 [facility] Comment on above: Performed By: #### T SH, CMP, LIPID #### [facility] [address] [address] [address] Shashi Cohen Globulin (S) [Mass/Vol] 3.5 g/dL Normal [facility] Comment on above: Performed By: #### T SH, CMP, LIPID #### [facility] [address] [address] [address] Shashi Cohen Glucose [Mass/Vol] 100 mg/dL Normal 74-106 [facility] Comment on above: Performed By: #### T SH, CMP, LIPID #### [facility] [address] [address] [address] Shashi Cohen Potassium [Moles/Vol] 4.0 mmol/L Normal 3.5-5.1 [facility] Comment on above: Performed By: #### T SH, CMP, LIPID #### [facility] [address] [address] [address] Shashi Cohen Protein [Mass/Vol] 7.4 g/dL Normal 6.4-8.2 [facility] Comment on above: Performed By: #### T SH, CMP, LIPID #### [facility] [address] [address] [address] Shashi Cohen Sodium [Moles/Vol] 139 mmol/L Normal 136-145 [facility] Comment on above: Performed By: #### T SH, CMP, LIPID #### [facility] [address] [place] [address] Dr. Shashi Cohen Urea nitrogen [Mass/Vol] 14.0 mg/dL Normal 7.0-18.0 [facility] Comment on above: Performed By: #### T SH, CMP, LIPID #### [facility] [address] [place] [address] Dr. Shashi Cohen Urea nitrogen/Creatinine [Mass ratio] 25.5 mg/mg Normal [facility] Comment on above: Performed By: #### T ANDREEA, CMP, LIPID #### [facility] [address] [place] [address] Dr. Shashi Cohen TSHon 08-29-2022 TSH 2.445 uIU/mL Normal 0.358-3.740 [facility] Comment on above: Performed By: #### T SH, CMP, LIPID #### [facility] [address] [place] [address] Dr. Shashi Cohen UA RANDOM W/MICROSCOPICon BACTERIA NONE SEEN Normal NONE SEEN [facility] Comment on above: Performed By: #### U AMIC #### [facility] [address] [place] [address] Dr. Shashi Cohen Bilirubin Ql (U) Negative Normal NEGATIVE [facility] Comment on above: Performed By: #### U AMIC #### [facility] [address] [place] [address] Dr. Shashi Cohen CAST NONE SEEN Normal NONE SEEN [facility] Comment on above: Performed By: #### U AMIC #### [facility] [address] [place] [address] Dr. Shashi Cohen Clarity (U) CLEAR Normal CLEAR [facility] Comment on above: Performed By: #### U AMIC #### [facility] [address] [place] [address] Dr. Shashi Cohen Color (U) LT. YELLOW Normal YELLOW [facility] Comment on above: Performed By: #### U AMIC #### [facility] [address] [address] [address] Shashi Cohen Crystals LM Nom (Urine sed) NONE SEEN Normal NONE SEEN [facility] Comment on above: Performed By: #### U AMIC #### [facility] [address] [address] [address] Shashi Cohen Epithelial cells LM Ql (Urine sed) NONE SEEN Normal NONE SEEN /RARE [facility] Comment on above: Performed By: #### U AMIC #### [facility] [address] [address] [address] Shashi Cohen Glucose Ql (U) Negative Normal NEGATIVE [facility] Comment on above: Performed By: #### U AMIC #### [facility] [address] [place] [address] Dr. Shashi Cohen Hemoglobin Ql (U) Negative Normal NEGATIVE [facility] Comment on above: Performed By: #### U AMIC #### [facility] [address] [address] [address] Shashi Cohen Ketones Ql (U) Negative Normal NEGATIVE [facility] Comment on above: Performed By: #### U AMIC #### [facility] [address] [address] [address] Shashi Cohen LEUKOCYTES Negative Normal NEGATIVE [facility] Comment on above: Performed By: #### U AMIC #### [facility] [address] [address] [address] Shashi Cohen MUCOUS NONE SEEN Normal NONE SEEN [facility] Comment on above: Performed By: #### U AMIC #### [facility] [address] [address] [address] Shashi Cohen Nitrite Ql (U) Negative Normal NEGATIVE [facility] Comment on above: Performed By: #### U AMIC #### [facility] [address] [place] [address] Dr. Shashi Cohen pH (U) 6.0 [pH] Normal 5-9 [facility] Comment on above: Performed By: #### U AMIC #### [facility] [address] [address] [address] Shashi Cohen RBC 0-2 Normal 0-2 [facility] Comment on above: Performed By: #### U AMIC #### [facility] [address] [address] [address] Shashi Cohen SPEC GRAVITY <=1.005 Abnormal 1.005-<=1.025 [facility] Comment on above: Performed By: #### U AMIC #### [facility] [address] [place] [address] Dr. Shashi Cohen UA PROTEIN Negative Normal NEGATIVE/ TRACE [facility] Comment on above: Performed By: #### U AMIC #### [facility] [address] [address] [address] Shashi Cohen Urobilinogen Qn (U) 0.2 {Stephan'U}/dL Normal 0.2 - 1. 0 [facility] Comment on above: Performed By: #### U AMIC #### [facility] [address] [place] [address] Dr. Shashi Cohen WBC NONE SEEN Normal NONE SEEN [facility] Comment on above: Performed By: #### U AMIC #### [facility] [address] [place] [address] Dr. Shashi Cohen VITAMIN D 25 OHon 08-29-2022 VIT D 25-OH 70.4 ng/mL Normal [facility] Comment on above: Performed By: #### V ITAD ####[facility] [id number] [address]Dr. Shashi Cohen VIT D RANGES SEE BELOW Normal [facility] Comment on above: Result Comment: <20 ng/mL Vit D deficient 20 - <30 ng/mL Vit D insufficient 30 - 100 ng/mL Vit D sufficient >100 ng/mL Potential Toxicity Performed By: #### V ITAD ####[facility] [id number] [address]Dr. Shashi Cohen MG MAMM DIAGNOSTIC 3D SENIA CA Don 08-14-2022 MG MAMM DIAGNOSTIC 3D SENIA CAD Patient: TINY MCKENNA Exam Date: 08/14/2022 : 1960 Gender:F Ordering : DR. RODRICK PATTON M.D. Admission #: [id number] Family : KAMILA ANDRADE TIRE BAGGER Order #: [id number] CLICK HERE TO VIEW EXAM RADIOLOGY REPORT PROCEDURE: MAMMOGRAM DIAGNOSTIC 3D BILATERAL CAD COMPARISON: MG MAMM SENIA DIAG W CAD, 02/07/2021. MAMMO POST BIOPSY RIGHT, 09/14/2019. DIGITIZED_MAMMO, 04/07/2007. MG MAMM DIAGNOSTIC 3D SENIA CAD, 08/15/2021. INDICATIONS: Primary malignant neoplasm of female left breast Calculator Name NCI Breast Cancer Risk Assessment Tool 5 Year Breast Cancer Risk 3.70% Lifetime Breast Cancer Risk 18.10% Personal Breast Cancer No Personal Ovarian Cancer No Treatments None Family Cancers Mother with breast cancer at age 40; Father with kidney cancer at age 60. LOCATION: [facility] BREAST COMPOSITION: Scattered areas fibroglandular density. FINDINGS: DIAGNOSTIC CATEGORY 2--BENIGN FINDING: RIGHT BREAST: No significant suspicious finding. Scattered benign-appearing nodules are present. Scattered benign-appearing calcifications are present. No significant change has occurred. LEFT BREAST: No significant suspicious finding. Scattered benign-appearing calcifications are present. No significant change has occurred. RECOMMENDATIONS: ROUTINE MAMMOGRAM AND CLINICAL EVALUATION IN 12 MONTHS. PLEASE NOTE: A NORMAL MAMMOGRAM DOES NOT EXCLUDE THE POSSIBILITY OF BREAST CANCER. A CLINICALLY SUSPICIOUS PALPABLE LUMP SHOULD BE BIOPSIED. Dictated by: Lalo Saleem M.D. on 08/14/2022 at 14:18 Approved by: Lalo Saleem M.D. on 08/14/2022 at 14:26 Normal [facility] PROF CHEM 8 (BAS METB)on Anion gap [Moles/Vol] 10.7 mmol/L Normal [facility] Comment on above: Performed By: #### B MP ####[facility] [address] [place] [address]DrKylah Cohen Calcium [Mass/Vol] 9.5 mg/dL Normal 8.5-10.1 [facility] Comment on above: Performed By: #### B MP ####[facility] [address] [place] [address]DrKylah Cohen Chloride [Moles/Vol] 102 mmol/L Normal 98-107 [facility] Comment on above: Performed By: #### B MP ####[facility] [address] [place] [address]Dr. Shashi Noel CO2 [Moles/Vol] 31.0 mmol/L Normal 21.0-32.0 [facility] Comment on above: Performed By: #### B MP ####[facility] [address] [place] [address]Dr. Cattosha Noel Creatinine [Mass/Vol] 0.70 mg/dL Normal 0.55-1.02 [facility] Comment on above: Performed By: #### B MP ####[facility] [address] [place] [address]Dr. Shashi Cohen EGFR-AF ANDORRAN >60 Normal >=60 [facility] Comment on above: Performed By: #### B MP ####[facility] [address] [place] [address]Dr. Shashi Cohen EGFR-NON AF ANDORRAN >60 Normal >=60 [facility] Comment on above: Performed By: #### B MP ####[facility] [address] [place] [address]Dr. Shashi Cohen Glucose [Mass/Vol] 119 mg/dL Critically high 74-106 [facility] Comment on above: Performed By: #### B MP ####[facility] [address] [place] [address]Dr. Shashi Cohen Potassium [Moles/Vol] 4.7 mmol/L Normal 3.5-5.1 [facility] Comment on above: Performed By: #### B MP ####[facility] [address] [place] [address]Dr. Shashi Cohen Sodium [Moles/Vol] 139 mmol/L Normal 136-145 [facility] Comment on above: Performed By: #### B MP ####[facility] [address] [place] [address]Dr. Shashi Cohen Urea nitrogen [Mass/Vol] 19.0 mg/dL Critically high 7.0-18.0 [facility] Comment on above: Performed By: #### B MP ####[facility] [address] [place], [place] [address]If. Shashi Cohen Urea nitrogen/Creatinine [Mass ratio] 27.1 mg/mg Normal [facility] Comment on above: Performed By: #### B MP ####[facility] [address] [place], [place] [address]Th. Shashi Cohen TSH+FREE T4on 12-19-2020 Free T4 [Mass/Vol] 1.5 ng/dL Normal 0.8-1.8 [facility] Comment on above: Performed By: #### 5 8984 #### [facility] [place] [address] Medical Device: Rivera Smumers MD TSH Qn 0.58 m[IU]/L Normal 0.40-4.50 [facility] Comment on above: Performed By: #### 5 8984 #### [facility] [place] [address] Medical Device: Rivera Summers MD [facility] METABOLIC [facility] 12-01-2020 Albumin [Mass/Vol] 4.3 g/dL Normal 3.6-5.1 [facility] Comment on above: Performed By: #### 7 600, 25280, 12199, 94822 #### [facility] [place] [address] Medical Device: Rivera Summers MD Albumin/Globulin [Mass ratio] 1.9 {ratio} Normal 1.0-2.5 [facility] Comment on above: Performed By: #### 7 600, 76138, 37662, 73374 #### [facility] [place] [address] Medical Device: Rivera Summers MD ALP [Catalytic activity/Vol] 72 U/L Normal 37-153 [facility] Comment on above: Performed By: #### 7 600, 24535, 94678, 05590 #### [facility] [place] [address] Medical Device: Rivera Summers MD ALT [Catalytic activity/Vol] 14 U/L Normal 6-29 [facility] Comment on above: Performed By: #### 7 600, 83768, 67180, 28580 #### [facility] [place] [address] Medical Device: Rivera Summers MD AST [Catalytic activity/Vol] 15 U/L Normal 10-35 [facility] Comment on above: Performed By: #### 7 600, 98216, 66017, 28134 #### [facility] [place] [address] Medical Device: Rivera Summers MD Bilirubin [Mass/Vol] 0.5 mg/dL Normal 0.2-1.2 [facility] Comment on above: Performed By: #### 7 600, 18330, 88883, 84981 #### [facility] [place] [address] Medical Device: Rivera Summers MD BUN/CREATININE RATIO NOT APPLICABLE Normal 6-22 [facility] Comment on above: Performed By: #### 7 600, 42622, 20172, 89028 #### [facility] [place] [address] Medical Device: Rivera Summers MD Calcium [Mass/Vol] 9.2 mg/dL Normal 8.6-10.4 [facility] Comment on above: Performed By: #### 7 600, 72568, 80688, 88231 #### [facility] [place] [address] Medical Device: Rivera Summers MD Chloride [Moles/Vol] 107 mmol/L Normal 98-110 [facility] Comment on above: Performed By: #### 7 600, 30705, 20460, 95235 #### [facility] [place] [address] Medical Device: Rivera Summers MD CO2 [Moles/Vol] 22 mmol/L Normal 20-32 [facility] Comment on above: Performed By: #### 7 600, 32779, 15717, 97141 #### [facility] [place] [address] Medical Device: Rivera Summers MD Creatinine [Mass/Vol] 0.54 mg/dL Normal 0.50-1.05 [facility] Comment on above: Result Comment: For patients >49 years of age, the reference limit for Creatinine is approximately 13% higher for people identified as -Peruvian. Performed By: #### 7 600, 73455, 84415, 54343 #### [facility] [place] [address] Medical Device: Rivera Summers MD eGFR NON-AFR. ANDORRAN 104 mL/min/1.73m2 Normal > OR = 60 [facility] Comment on above: Performed By: #### 7 600, 99956, 31581, 35315 #### [facility] [place] [address] Medical Device: Rivera Summers MD GFR/1.73 sq M.predicted among blacks MDRD (S/P/Bld) [Vol rate/Area] 121 mL/min/{1.73_m2} Normal > OR = 60 [facility] Comment on above: Performed By: #### 7 600, 92124, 46774, 26434 #### [facility] [place] [address] Medical Device: Rivera Summers MD Globulin (S) [Mass/Vol] 2.3 g/dL Normal 1.9-3.7 [facility] Comment on above: Performed By: #### 7 600, 15663, 48015, 11196 #### [facility] [place] [address] Medical Device: Rivera Summers MD Glucose [Mass/Vol] 118 mg/dL High 65-99 [facility] Comment on above: Result Comment: Fasting reference interval For someone without known diabetes, a glucose value between 100 and 125 mg/dL is consistent with prediabetes and should be confirmed with a follow-up test. Performed By: #### 7 600, 82558, 24971, 10307 #### [facility] [place] [address] Medical Device: Rivera Summers MD Potassium [Moles/Vol] 4.1 mmol/L Normal 3.5-5.3 [facility] Comment on above: Performed By: #### 7 600, 44529, 09492, 75188 #### [facility] [place] [address] Medical Device: Rivera Summers MD Protein [Mass/Vol] 6.6 g/dL Normal 6.1-8.1 [facility] Comment on above: Performed By: #### 7 600, 32669, 74999, 20882 #### [facility] [place] [address] Medical Device: Rivera Summers MD Sodium [Moles/Vol] 138 mmol/L Normal 135-146 [facility] Comment on above: Performed By: #### 7 600, 23640, 11189, 80032 #### [facility] [place] [address] Medical Device: Rivera Summers MD Urea nitrogen [Mass/Vol] 17 mg/dL Normal 7-25 [facility] Comment on above: Performed By: #### 7 600, 82073, 09135, 21336 #### [facility] [place] [address] Medical Device: Rivera Summers MD LIPID PANEL, STANDARD 07-0 Cholesterol [Mass/Vol] 199 mg/dL Normal <200 [facility] Comment on above: Order Comment: FASTI NG:YES FASTING: YES Performed By: #### 7 600, 27803, 66749, 16336 #### [facility] [place] [address] Medical Device: Rivera Summers MD Cholesterol in HDL [Mass/Vol] 48 mg/dL Low > OR = 50 [facility] Comment on above: Order Comment: FASTI NG:YES FASTING: YES Performed By: #### 7 600, 02563, 30829, 69163 #### [facility] [address], [address] [place] [address] Medical Device: Rivera Summers MD Cholesterol in LDL [Mass/Vol] 135 mg/dL High [facility] Comment on above: Order Comment: FASTI NG:YES FASTING: YES Result Comment: Refe rence range: <100 Desirable range <100 mg/dL for primary prevention; <70 mg/dL for patients with CHD or diabetic patients with > or = 2 CHD risk factors. LDL-C is now calculated using the Sana calculation, which is a validated novel method providing better accuracy than the Friedewald equation in the estimation of LDL-C. Darren SS et al. ALEJANDRA. 2013;310(19): 4906-2184 (http://education.Socrata/faq/PTI753) Performed By: #### 7 600, 39903, 55497, 80890 #### [facility] [address], [address] [place] [address] Medical Device: Rivera Summers MD Cholesterol.total/Ch olesterol in HDL [Mass ratio] 4.1 {ratio} Normal <5.0 [facility] Comment on above: Order Comment: FASTI NG:YES FASTING: YES Performed By: #### 7 600, 07043, 03329, 79986 #### [facility] [address], [address] [place] [address] Medical Device: Rivera Summers MD NON HDL CHOLESTEROL 151 mg/dL (calc) High <130 [facility] Comment on above: Order Comment: FASTI NG:YES FASTING: YES Result Comment: For patients with diabetes plus 1 major ASCVD risk factor, treating to a non-HDL-C goal of <100 mg/dL (LDL-C of <70 mg/dL) is considered a therapeutic option. Performed By: #### 7 600, 05121, 64718, 75602 #### [facility] [address], [address] [place] [address] Medical Device: Rivera Summers MD Triglyceride [Mass/Vol] 68 mg/dL Normal <150 [facility] Comment on above: Order Comment: FASTI NG:YES FASTING: YES Performed By: #### 7 600, 75388, 15042, 57430 #### [facility] [address], [address] [place] [address] Medical Device: Rivera Summers MD SARS CoV 2 SEROLOGY (COVID19 ) AB (IgG,IgM), IAon 12-01-2020 SARS-CoV-2 (COVID-19) Ab IA Ql Negative Normal NEGATIVE [facility] Comment on above: Result Comment: Reference range: Negative These tests are intended for use as an aid in identifying individuals with an adaptive immune response to SARS-CoV-2, indicating recent or prior infection. Results are for the detection of SARS-CoV-2 IgG and IgM antibodies. IgM antibodies to SARS-CoV-2 are generally detectable in blood several days after initial infection, with IgG antibodies typically reaching detectable levels a few days later. The duration of time antibodies are present post-infection is not well characterized. At this time, it is unknown how long IgG and IgM antibodies persist following infection, or if the presence of antibodies confers protective immunity. Individuals may have detectable virus present for several weeks following seroconversion. Negative results for antibodies do not preclude acute SARS-CoV-2 infection. These tests should not be used to diagnose acute SARS-CoV-2 infection. If acute infection is suspected, direct testing for SARS-CoV-2 is necessary. False positive results for the tests may occur due to cross-reactivity from pre-existing antibodies or other possible causes. The sensitivity of the tests early after infection is unknown. IgM Result IgG Result Interpretation Negative Negative Antibodies not detected. Does not preclude acute SARS-CoV-2 infection. Negative Positive Suggests past exposure to SARS-CoV-2. Positive Negative Suggests recent exposure to SARS-CoV-2. Positive Positive Suggests recent exposure to SARS-CoV-2. Please review the Fact Sheets available for health care providers and patients using the following websites: [employer]/home/Covid-19/HCP/antibody/fact-sheet2 [employer]/home/Covid-19/Patients/antibody/fact-sheet2 [employer]/home/Covid-19/HCP/antibody/fact-sheet6 [employer]/home/Covid-19/Patients/antibody/fact-sheet6 These tests have been authorized by the FDA under an Emergency Use Authorization (EUA) for use by authorized laboratories. The FDA authorized fact sheets are available on the [employer] website: www.Socrata/Covid19. For additional information please refer to http://education.Baydin.VidPay/faq/QHH760 (This link is being provided for informational/ educational purposes only.) Performed By: #### 7 600, 19472, 79835, 26293 #### [facility] [address] [facility], [address] [place] [address] Medical Device: Rivera Summers MD SARS-CoV-2 (COVID-19) IgM Ab [Presence] in Serum, Plasma or Blood by Rapid immunoassay Negative Normal NEGATIVE [facility] Comment on above: Result Comment: Reference range: Negative These tests are intended for use as an aid in identifying individuals with an adaptive immune response to SARS-CoV-2, indicating recent or prior infection. Results are for the detection of SARS-CoV-2 IgG and IgM antibodies. IgM antibodies to SARS-CoV-2 are generally detectable in blood several days after initial infection, with IgG antibodies typically reaching detectable levels a few days later. The duration of time antibodies are present post-infection is not well characterized. At this time, it is unknown how long IgG and IgM antibodies persist following infection, or if the presence of antibodies confers protective immunity. Individuals may have detectable virus present for several weeks following seroconversion. Negative results for antibodies do not preclude acute SARS-CoV-2 infection. These tests should not be used to diagnose acute SARS-CoV-2 infection. If acute infection is suspected, direct testing for SARS-CoV-2 is necessary. False positive results for the tests may occur due to cross-reactivity from pre-existing antibodies or other possible causes. The sensitivity of the tests early after infection is unknown. IgM Result IgG Result Interpretation Negative Negative Antibodies not detected. Does not preclude acute SARS-CoV-2 infection. Negative Positive Suggests past exposure to SARS-CoV-2. Positive Negative Suggests recent exposure to SARS-CoV-2. Positive Positive Suggests recent exposure to SARS-CoV-2. Please review the Fact Sheets available for health care providers and patients using the following websites: [employer]/home/Covid-19/HCP/antibody/fact-sheet2 [employer]Pay/home/Covid-19/Patients/antibody/fact-sheet2 [employer]/home/Covid-19/HCP/antibody/fact-sheet6 [employer]/home/Covid-19/Patients/antibody/fact-sheet6 These tests have been authorized by the FDA under an Emergency Use Authorization (EUA) for use by authorized laboratories. The FDA authorized fact sheets are available on the [employer] website: www.Socrata/Covid19. For additional information please refer to http://education.Tysdo/faq/MHF417 (This link is being provided for informational/ educational purposes only.) Performed By: #### 7 600, 29955, 52474, 25581 #### [facility] [place] [address] Medical Device: Rivera Summers MD VITAMIN D,25-OH,TOTAL,IAon 0 12-01-2020 VITAMIN D,25-OH,TOTAL,IA 71 ng/mL Normal 30-100 [facility] Comment on above: Result Comment: Sherrie min D Status 25-OH Vitamin D: Deficiency: <20 ng/mL Insufficiency: 20 - 29 ng/mL Optimal: > or = 30 ng/mL For 25-OH Vitamin D testing on patients on D2-supplementation and patients for whom quantitation of D2 and D3 fractions is required, the [facility]ure[facility](TM) 25-OH VIT D, (D2,D3), LC/MS/MS is recommended: order code 53195 (patients >2yrs). See Note 1 Note 1 For additional information, please refer to http://education.MyEnergy.VidPay/faq/ZDZ818 (This link is being provided for informational/ educational purposes only.) Performed By: #### 7 600, 84857, 15679, 64000 #### [facility] [address], [address] [place], [place] [id number] Medical Device: Rivera Summers MD Vital Signs Date Time Vital Sign Value Performing Clinician Harinder boyle 05-16-2022 10:13-0500 Body height 164 cm Rodrick Patton MD Work Phone: [facility] 05-16-2022 10:13-0500 Body temperature 97.7 [degF] Rodrick Patton MD Work Phone: [facility] 05-16-2022 10:13-0500 Body weight 63.96 kg Rodrick Patton MD Work Phone: [facility] 05-16-2022 10:13-0500 Diastolic blood pressure 83 mm[Hg] Rodrick Patton MD Work Phone: [facility] 05-16-2022 10:13-0500 Heart rate 71 /min Rodrick Patton MD Work Phone: [facility] 05-16-2022 10:13-0500 Respiratory rate 16 /min Rodrick Patton MD Work Phone: [facility] 05-16-2022 10:13-0500 SaO2% (BldA) [Mass fraction] 98 % Rodrick Patton MD Work Phone: [facility] 05-16-2022 10:13-0500 Systolic blood pressure 118 mm[Hg] Rodrick Patton MD Work Phone: [facility] Encounters Encounter Date Encounter Type Care Provider Facility Start: 09-10-2023 End: 09-10-2023 ambulatory CURTIS RAYMOND Not Available Start: 07-16-2023 Patient encounter procedure [facility] Provider [facility] Department Start: 07-15-2023 ambulatory Rodrick rivera MD Work Phone: Hematology/Oncology Comment on above: Dental Work Start: 07-15-2023 Telephone encounter Kostas Sheppard Hematology/Oncology Comment on above: Brand Marketing Specialist Start: 05-15-2023 End: 05-15-2023 ambulatory RODRICK PATTON Facility:[facility] Start: 11-29-2022 Refill Samson Siegel APRN.CNP Work Phone: Laboratory Medicine Comment on above: Refill Request Start: 11-14-2022 End: 11-14-2022 ambulatory RODRICK PATTON Facility:[facility] Start: 09-06-2022 Encounter for genera l adult medical examination without abnormal findings KAMILA ACEVEDO MAGALYJOSH [facility] Start: 08-29-2022 End: 08-30-2022 Encounter for general adult medical examination without abnormal findings KAMILA ANDRADE Facility:[facility] Start: 08-29-2022 End: 08-30-2022 ambulatory TIRE BAGGER CURTIS ANDRADE Facility:[facility] Start: 08-14-2022 End: 08-15-2022 ambulatory RODRICK PATTON Facility:[facility] Start: 05-23-2022 End: 05-23-2022 ambulatory KAMILA CHAVEZJOVITAJordyn Facility:[facility] Start: 05-16-2022 End: 05-16-2022 ambulatory Rodrcik Patton MD Work Phone: Hematology/Oncology Comment on above: 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) (Primary Dx) Start: 05-16-2022 End: 05-16-2022 Patient encounter procedure Rodrick Patton MD Work Phone: [facility] Start: 05-13-2022 Telephone encounter Rodrick rodríguez MD Work Phone: Hematology/Oncology Comment on above: Lab Orders Start: 04-29-2022 Telephone encounter Debra Lee [facility] Work Phone: Hematology/Oncology Comment on above: Medication Problem ( Delia requesting auth be with drawn for Prolia) Start: 04-09-2022 ambulatory KAMILA ANDRADE Facil ity:[facility] Start: 01-22-2022 End: 01-23-2022 ambulatory KAMILA ANDRADE Facility:[facility] Start: 12-25-2021 End: 12-26-[address] RANJANA ZHANG Facility:[facility] Start: 11-20-2021 End: 05-21-2022 ambulatory KAMILA ANDRADE Facility:[facility] Plan of Treatment Date Care Activity Detail Author Start: 05-16-2025 DIABETES SCREEN DIABETES SCREEN [facility] Start: 05-16-2025 Diabetes Screening Diabetes Screenin g [facility] Start: 11-22-2024 DIABETES SCREEN DIABETES SCREEN [facility] Start: 06-02-2023 [facility] Start: 04-21-2023 Shingrix Vaccine (2 of 2) Shingrix Vaccine (2 of 2) [facility] Start: 11-14-2022 End: 05-16-2023 CBC W Auto Differential panel - Blood CBC + DIFF Lab Routine Invasive ductal carcinoma of left breast (HCC) Expected: 11/14/2022 (Approximate), Expires: 05/16/2023 [facility] Work Phone: Comment on above: Expected: 11/14/2022 (Approximate), Expires: 05/16/2023 Start: 11-14-2022 End: 05-16-2023 Comprehensive metabolic 2000 panel - Serum or Plasma COMP METABOLIC PANEL Lab Routine Invasive ductal carcinoma of left breast (HCC) Expected: 11/14/2022 (Approximate), Expires: 05/16/2023 [facility] Work Phone: Comment on above: Expected: 11/14/2022 (Approximate), Expires: 05/16/2023 Start: 11-14-2022 End: 06-15-2023 Diagnostic mammography computer-aided detcj bi DION DIAGNOSTIC BILAT Radiology Routine Invasive ductal carcinoma of left breast (HCC) Expected: 11/14/2022 (Approximate), Expires: 06/15/2023 [facility] Work Phone: Comment on above: Expected: 11/14/2022 (Approximate), Expires: 06/15/2023 Start: 11-13-2022 Urine microalbumin profile [facility] Start: 06-02-2022 DEPRESSION ASSESSMENT DEPRESSION ASS [facility] Start: 05-16-2022 End: 05-14-2023 CBC W Auto Differential panel - Blood CBC + DIFF Lab Routine Invasive ductal carcinoma of left breast (HCC) Expected: 05/16/2022 (Approximate), Expires: 05/14/2023 [facility] Work Phone: Comment on above: Expected: 05/16/2022 (Approximate), Expires: 05/14/2023 Start: 05-16-2022 End: 05-14-2023 Comprehensive metabolic 2000 panel - Serum or Plasma COMP METABOLIC PANEL Lab Routine Invasive ductal carcinoma of left breast (HCC) Expected: 05/16/2022 (Approximate), Expires: 05/14/2023 [facility] Work Phone: Comment on above: Expected: 05/16/2022 (Approximate), Expires: 05/14/2023 Start: 03-17-2022 COVID-19 VACCINE (5 - Booster) COVID-19 VACCINE (5 - Booster) [facility] Start: 01-31-2022 Influenza vaccination INFLUENZA (#1) [facility] Start: 2021 RSV Vaccine (1 - 1-d ose 60+ series) RSV Vaccine (1 - 1-dose 60+ series) [facility] Start: 06-05-2021 COVID-19 VACCINE (4 - Booster) COVID-19 VACCINE (4 - Booster) [facility] Start: 06-02-2021 DEPRESSION ASSESSMENT DEPRESSION ASS ESSMENT [facility] Start: 12-22-2011 SHINGRIX VACCINE (1 of 2) SHINGRIX VACCINE (1 of 2) [facility] Start: 2006 COLOGUARD (FIT-DNA) COLOGUARD (FIT-D NA) [facility] Start: 2006 Colonoscopy COLONOSCOPY [facility] Start: 2006 COLORECTAL CANCER SCREENING COLORECTAL CANCER SCREENING [facility] Start: [address] COLONOGRAPHY [facility] Start: 2006 FECAL OCCULT BLOOD FECAL OCCULT BLOO D [facility] Start: 2006 Lipid panel Lipid Screening [facility] Start: 2006 LIPID SCREEN LIPID SCREEN [facility] Start: 2006 Screening for malign ant neoplasm of colon [facility] Start: 2006 [facility] Start: 2001 Mammography MAMMOGRAM [facility] Start: 2001 Screening for malign ant neoplasm of breast Mammogram Screening [facility] Start: 12-22-1991 HPV TESTING HPV TESTING [facility] [facility] Start: 12-22-1991 Screening for malign ant neoplasm of cervix HPV Testing [facility] Start: 1982 PAP TESTING PAP TESTING [facility] Start: 1982 Screening for malign ant neoplasm of cervix Pap Testing [facility] Start: 12-22-1979 HEPATITIS C SCREENING HEPATITIS C [facility] Start: 12-22-1979 Hepatitis C screening Hepatitis C [facility] Start: 12-22-1979 HIV SCREENING HIV SCREENING [facility] Start: 12-22-1979 HIV screening HIV Screening [facility] Immunizations Immunization Date Immunization Notes Care Provider Dewayne thompson 03-15-2021 influenza, injectabl e, quadrivalent, preservative free Debra Kitrick [facility] Work Phone: [facility] 08-24-2020 COVID-19 original vaccine, age 12+ yr, monovalent (PFIZER-BIONTKymab - PURPLE TOP) [facility] 08-24-2020 COVID-19 vaccine (UNSPECIFIED) Debra [facility] Work Phone: [facility] 03-13-2020 influenza, injectabl e, quadrivalent, preservative free Debra [facility] Work Phone: [facility] 04-29-2017 Influenza, injectabl e, [facility] [place] Canine Kidney, preservative free, quadrivalent [facility] 04-19-2016 influenza, seasonal, injectable, preservative free [facility] 11-13-2012 tetanus toxoid, redu cyn diphtheria toxoid, and acellular pertussis vaccine, adsorbed [facility] 05-18-2012 influenza, seasonal, injectable Debra Kitrick [facility] Work Phone: [facility] Payers Date Payer Category Payer Unknown IVETH LAZARO [facility] BETSY [id number] 2021-Present [phone] [address] [place] [address] Indemnity [id number] 2021 Unknown [id number] 1961 Unknown [id number] 3 1961 Unknown [id number] 3 1961 Unknown [id number] 3 1961 Unknown [id number] 3 1961 Unknown [id number] 3 1961 Unknown [id number] 3 1961 Unknown [id number] 3 1961 Unknown [id number] 3 1961 Unknown [id number] 59 1959 Self-pay Social History Date Type Detail Facility [facility]: [facility] History of tobacco use Current smoker [facility] Start: 09-20-2019 Tobacco use and exposure Smoke less tobacco non-user [facility] Start: 11-22-2021 End: 05-15-2023 Alcohol intake Current drinker of alcohol (finding) [facility] Start: 09-20-2019 Alcohol Comment occasional [facility] Start: 1960 Sex Assigned At Not on file [facility] Start: 11-14-2022 End: 12-14-2023 History of Social function [facility] Start: 11-14-2022 End: 05-15-2023 Tobacco use panel [facility] Adult Depression Screening Assessment 0 [facility] Clinical Notes 11-20-2021 to 07-16-2023 Telephone Encounter - Kostas Falk RN - 07/16/2023 9:20 AM ESTTelephone Encounter - Rodrick Patton MD - 07/15/2023 6:40 PM ESTTelephone Encounter - Kostas Falk RN - 07/15/2023 3:13 PM EST Note Date & Type Note Facility 07-16-2023 Miscellaneous Notes Note completed, review and signed. Faxed to Dr Resendiz office. Kostas Falk RN She can proceed from my standpoint as long as you take precautions in wound healing for her jaw which I'm sure you're aware of. Just add that line and should be great - Thanks! Pt sent MyChart with Brand Marketing Specialist information: The post acute care registered nurse is Dr Aidan Resendiz, phone is [phone] email is [email or web address] I have another consultation with him on Friday, 07/18. Thank you, Annette Mckenna 05/15/23 Office Note per Cipriano: She needs clearance from me for dental work due to her Prolia use. Her last dose of Prolia was in 11/2022, next is planned for 06/2023. If she is going to proceed with the dental work, she should hold June's dose and wait until for the procedure Cipriano: pt is requesting the letter of clearance. Pended letter; please review under communication and let me know if you would like any changes. documented in this encounter [facility] 12-14-2023 Note HNO ID: [id number] Author: Rodrick Patton MD Service: ? Author Type: Physician Type: Progress Notes Filed: 05/15/2023 8:36 PM Note Text: NAME: Tiny Mckenna CLINIC NO.: [id number] DATE OF SERVICE: May 15, 2023 (Rosemary) Some elements in this clinic note that are critical to medical decision making have been carefully reviewed and included from a prior clinic note dated: November 14, 2022 (Rosemary) Referring Provider: Dr. 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 Tumor was in the axillary tail with no clinical evidence of axillary LN's. OncotypeDX RS (49) was High and therefore we gave her neoadjuvant therapy after discussion at tumor board. She had had an excellent clinical response to neoadjuvant chemotherapy. 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 She completed adjuvant radiation on 04/04/2020 and also adjuvant Xeloda 1500 mg BID x 14 days every 21 day cycle for 8 cycles. (EXTENET). 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 Dose reduction has helped significantly although she continued to have issues with constipation. She additionally has had palpable hepatomegaly of unclear etiology - this was not palpable on exam 11/22/2021. Repeat Dexa in 11/2022 PLAN: RTC in 6 months for labs and exam Hold Anastrozole for 2 weeks. Hold Prolia until dental procedure is completed and resume after next DXA in 12/2023 DXA ordered, scheduled for 12/2023 at [facility]. HPI: Case History: 06/05/2020- 11/13/2020: adjuvant Xeloda 1500 mg BID X 14 days every 21 days x 8 cycles; dose reduced to 1000mg BID x 14 days on and 7 days off with cycle 5. 03/08/2020 - 04/04/2020: adjuvant radiation Left breast 4005cGy in 15 fractions with surgical cavity boost 1000 cGy in 5 fractions 10/11/2019 - 12/13/2019: Neoadjuvant taxotere + cytoxan ?4 cycles 09/30/2019 bilateral MRI breast: Enhancing mass at the site of palpable concern at the superior slightly medial left breast. Within the left breast at approximately the 11:00 position at the site of palpable concern there is a lobulated mass like area measuring 2.1 x 2.8 x 2.3 cm. This shows mixed signal and there is associated enhancement. On the sagittal sequence the lesion extends close to the pectoralis muscle. There are axillary lymph nodes with fatty luis angel. No suspicious MRI findings on the right breast. 08/26/2019 bilateral diagnostic mammography: [facility]. Right breast with mild architectural distortion which improves with rolled views, likely related to implant removal. 1.5 cm rounded mass upper breast on MLO projection. Ultrasound shows at 11:00 a 1.3 x 1.6 x 1.2 cm hypoechoic mass with acoustic shadowing. Left breast with mild architectural distortion which improves with rolled views, likely related to implant removal. Corresponding to the patient's palpable mass, demarcated with a triangle marker is a 2 cm oval lobular mass upper breast on MLO projection. Ultrasound shows at 12:00 a 1.9 x 1.8 x 2.0 cm lobular hard hypochromic mass with mild acoustic shadowing. Core biopsy was recommended. Updated Visit, May 15, 2023: Delia returns today with Garrett. She is doing fine with the Anastrozole, other than feeling much more fatigued the past few months. I would advise her to hold the Anastrozole for 2 weeks to see if there is improvement, and if none she can restart it after that. If this does roller turner to be the cause, we will plan to switch to an alternative. She feels she is sleeping okay. Wakes up feeling very groggy, but does not have any problems with falling asleep during the day. Denies noticing any severe drowsiness while driving. She needs clearance from me for dental work due to her Prolia use. Her last dose of Prolia was in 11/2022, next is planned for 06/2023. If she is going to proceed with the dental work, she should hold June's dose and wait until for the procedure. She reports some weight gain despite continuing Keto diet and intermittent fasting. She has not been exercising as frequently. I recommended looking out for any signs of RACHEAL. 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 Mammogram in July was negative. Got back from a wonde (more content not included)... [facility] 11-29-2022 Miscellaneous Notes The following approved medication requests have been transmitted electronically. Requested Prescriptions Signed Prescriptions Disp Refills anastrozole (ARIMIDEX) 1 mg tablet 90 tablet 3 Sig: TAKE 1 TABLET ONCE DAILY Authorizing Provider: SAMSON SIEGEL APRN.KAMILA documented in this encounter [facility] 11-14-2022 Note HNO ID: [id number] Author: Rodrick Patton MD Service: ? Author Type: Physician Type: Progress Notes Filed: 11/14/2022 11:47 AM Note Text: NAME: Tiny Mckenna CLINIC NO.: [id number] DATE OF SERVICE: November 14, 2022 (Rosemary) Some elements in this clinic note that are critical to medical decision making have been carefully reviewed and included from a prior clinic note dated: May 16, 2022 (Rosemary) Referring Provider: Dr. 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 Tumor was in the axillary tail with no clinical evidence of axillary LN's. OncotypeDX RS (49) was High and therefore we gave her neoadjuvant therapy after discussion at tumor board. She had had an excellent clinical response to neoadjuvant chemotherapy. 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 She completed adjuvant radiation on 04/04/2020 and also adjuvant Xeloda 1500 mg BID x 14 days every 21 day cycle for 8 cycles. (EXTENET). 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 Dose reduction has helped significantly although she continued to have issues with constipation. She additionally has had palpable hepatomegaly of unclear etiology - this was not palpable on exam 11/22/2021. Repeat Dexa in 11/2022 PLAN: RTC in 6 months for labs and examine Continue Anastrozole. Continue Prolia - at [facility] every 6 months Will order Dexa at next visit. TREATMENT TO DATE: 3. 06/05/2020- 11/13/2020: adjuvant Xeloda 1500 mg BID X 14 days every 21 days x 8 cycles; dose reduced to 1000mg BID x 14 days on and 7 days off with cycle 5. 2. 03/08/2020-04/04/2020: adjuvant radiation Left breast 4005cGy in 15 fractions with surgical cavity boost 1000 cGy in 5 fractions 1. 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 Mammogram in July was negative. Got back from a wonderful trip to [place] and [place]. Updated Visit, May 16, 2022: Returns with Garrett. Survived COVID infection from end of March. Otherwise is doing well. No joint aches or pains from Arimidex. Oyyfhi-qa-[id number] a few days ago at age 89 so some family stress. Otherwise doing well. Still hasn't been approved for Prolia from January. 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 After discussion at multidisciplinary tumor board, we gave her neoadjuvant chemotherapy with excellent response noted at time of surgery however, had residual 1.5 cm ER + tumor and so completed extended adjuvant therapy following radiation according to EXTENET trial through 10/2020. She is doing very well. Her Garrett was unable to accompany her today. We reviewed her Mammograms with right axillary tail stable density noted on report which is not not palpable on exam completed today. Looks like she has lost weight Blood sugars are still elevated despite fasting. She may need to pursue this with her PCP. I recall the concern for fatty liver in the past but she is taken extensive measures to change her diet in order to correct this. It is likely worthwhile to look into this more. She will pursue this with her PCP. Updated Visit, May 24, 2021: Delia is generally doing well. But is anxious about her health insurance changes that might push her out of the [facility] system. I reassured her that she will still be able to obtain good care if she had to switch. Needs to figure out insurance and rescheduling her mamograms - will need prolia outside of [facility]. Chaperoned breast exam was completed today. Updated Visit, February 19, 2021: Doing well overall and we've reviewed mammograms that show some new benign calcification of the right breast as well as surgical changes in the left. Will obtain 6 month mammography for repeat. 12/18/2020 Bone density + osteoporosis of the spine with high risk of fracture. Scheduled for Prolia today and has been taking Vit D + Calcium. Joint pain and aches since starting Arimidex. Updated Visit, November 20, 2020: Minimal neuropathy. Continues to lose weight. Is maintaining a lower carbohydrate diet and is fasting intermittently. She is happy to complete extended adjuvant therapy and is now on arimidex. Updated Visit, October 09, 2020: Delia is 59 yo and returns (more content not included)... [facility] 05-16-2022 Instructions Rodrick Patton MD - 05/16/2022 11:08 AM EST Mammograms in [facility] - in 6 months Please obtain labs same day at [facility]. RTC in 6 months to review mammogram and labs, examine - 30 mins Continue Anastrozole. Prolia when approved - at [facility] and then every 6 months Will order Dexa at next visit. documented in this encounter [facility] 05-16-2022 History of Presen t illness Narrative Images from the original note were not included. NAME: Tiny Mckenna [facility] NO.: [id number] DATE OF SERVICE: May 16, 2022 (Rosemary) Some elements in this clinic note that are critical to medical decision making have been carefully reviewed and included from a prior clinic note dated: November 22, 2021 (Rosemary) Referring Provider: Dr. 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 Tumor was in the axillary tail with no clinical evidence of axillary LN's. OncotypeDX RS (49) was High and therefore we gave her neoadjuvant therapy after discussion at tumor board. She had had an excellent clinical response to neoadjuvant chemotherapy. 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 She completed adjuvant radiation on 04/04/2020 and also adjuvant Xeloda 1500 mg BID x 14 days every 21 day cycle for 8 cycles. (EXTENET). 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 Dose reduction has helped significantly although she continued to have issues with constipation. She additionally has had palpable hepatomegaly of unclear etiology - this was not palpable on exam 11/22/2021. Repeat Dexa in 11/2022 PLAN: Mammograms in [facility] - in 6 months Please obtain labs same day at [facility]. RTC in 6 months to review mammogram and labs, examine - 30 mins Continue Anastrozole. Prolia when approved - at [facility] and then every 6 months Will order Dexa at next visit. TREATMENT TO DATE: 3. 06/05/2020- 11/13/2020: adjuvant Xeloda 1500 mg BID X 14 days every 21 days x 8 cycles; dose reduced to 1000mg BID x 14 days on and 7 days off with cycle 5. 2. 03/08/2020-04/04/2020: adjuvant radiation Left breast 4005cGy in 15 fractions with surgical cavity boost 1000 cGy in 5 fractions 1. 10/11/2019 - December 13, 2019: Neoadjuvant taxotere + cytoxan 4 cycles HPI: Updated Visit, May 16, 2022: Returns with Garrett. Survived COVID infection from end of March. Otherwise is doing well. No joint aches or pains from Arimidex. Mltsxy-gg-qcw a few days ago at age 89 so some family stress. Otherwise doing well. Still hasn't been approved for Prolia from January. 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 After discussion at multidisciplinary tumor board, we gave her neoadjuvant chemotherapy with excellent response noted at time of surgery however, had residual 1.5 cm ER + tumor and so completed extended adjuvant therapy following radiation according to EXTENET trial through 10/2020. She is doing very well. Her Garrett was unable to accompany her today. We reviewed her Mammograms with right axillary tail stable density noted on report which is not not palpable on exam completed today. Looks like she has lost weight Blood sugars are still elevated despite fasting. She may need to pursue this with her PCP. I recall the concern for fatty liver in the past but she is taken extensive measures to change her diet in order to correct this. It is likely worthwhile to look into this more. She will pursue this with her PCP. Updated Visit, May 24, 2021: Delia is generally doing well. But is anxious about her health insurance changes that might push her out of the [facility] system. I reassured her that she will still be able to obtain good care if she had to switch. Needs to figure out insurance and rescheduling her mamograms - will need prolia outside of [facility]. Chaperoned breast exam was completed today. Updated Visit, February 19, 2021: Doing well overall and we've reviewed mammograms that show some new benign calcification of the right breast as well as surgical changes in the left. Will obtain 6 month mammography for repeat. 12/18/2020 Bone density + osteoporosis of the spine with high risk of fracture. Scheduled for Prolia today and has been taking Vit D + Calcium. Joint pain and aches since starting Arimidex. Updated Visit, November 20, 2020: Minimal neuropathy. Continues to lose weight. Is maintaining a lower carbohydrate diet and is fasting intermittently. She is happy to complete extended adjuvant therapy and is now on arimidex. Updated Visit, October 09, 2020: Delia is 59 yo and returns accompanied by her Garrett, prior to C7 Xeloda in the extended adjuvant setting for left IDC breast cancer. She is doing very well following dose reduction and is also doing well following a low carb diet. Labs continue to be safe for treatment. Updated Visit, September 18, 2020: Delia returns prior to C6 Xeloda in the extended adjuvant setting for left IDC breast cancer. She has noted that her neuropathy a lot better with decreasing the Xeloda to 1000 mg bid. Constipation is still problematic for her. She is using dulcolax but I would also recommend senna and metamucil. Counts are safe to proceed. Updated Visit, August 28, 2020: Today Delia returns with her for follow up prior to stating cycle 5 of xeloda. Last cycle she did suffer from constipation and was finally able to get relief from 3 dulcolax. She again has not had a bowel movement since 08/23 despite daily Metamucil. She currently is not having abdominal pain or nausea or vomiting. She also has developed red, tender and peeling feet b/l. Mostly on the balls of her feet. This week is improved because it is her week off however they still remain red and peeling. She is using aquaphor. Denies fevers, chills, or mouth sores. Updated Visit, August 07, 2020: Delia is 59 yo and is on Xeloda in extended adjuvant for residual Left breast IDC ER+, following neoadjuvant therapy and lumpectomy in 03/2020. After completing adjuvant radiation, she was started on Xeloda with an anticipated 8 cycles for extended adjuvant treatment. She returns prior to C4. Fingers feel slippery otherwise no significant complaints or symptoms. Updated Visit, July 17, 2020: Delia is 59 yo and is on Xeloda in extended adjuvant and has complaints of constipation, pubic itching and hand-foot syndrome (very mild). Itching is not associated with a rash but just pruritis. Feet got bright red and sore but this has resolved. Updated Visit, June 26, 2020: Delia is 59 years old and returns with her Garrett for cycle 2 Xeloda in the extended adjuvant setting. She had very few symptoms following her first course of treatment and counts have held very nicely. I will see her back in 3 weeks just prior to cycle 3 she knows to call me sooner with any worsening symptoms. Updated Visit, June 12, 2020: Delia is 59 years old and completed neoadjuvant chemotherapy with 4 cycles of Taxotere plus Cytoxan with very nice clinical response but had residual tumor at the primary site with negative sentinel lymph nodes. She subsequently completed her consolidative radiation therapy following her breast conservative surgery and is now on extended adjuvant therapy with Xeloda for 8 anticipated cycles. She has completed 2 weeks of her 1 cycle and has Mild fatigue - counts stable and otherwise she has no complaints on today's evaluation for toxicity monitoring from Xeloda given in the adjuvant setting for residual breast cancer following neoadjuvant therapy and resection. Slight bloating and diarrhea. Updated Visit, June 05, 2020: Delia returns today with her to start Xeloda. She has healed from radiation. She received education on Xeloda. She has no new issues or complaints at this time. Updated visit, May 01, 2020: Delia is 59 years old and completed neoadjuvant chemotherapy with 4 cycles of Taxotere plus Cytoxan with very nice clinical response but had residual tumor at the primary site with negative sentinel lymph nodes. She subsequently completed her consolidative radiation therapy following her breast conservative surgery and now presents to discuss further adjuvant chemotherapy due to persisting disease. So far, she is doing very well and has minimal side effects from radiation. I have plan for her to get 8 cycles of Xeloda to be conducted every 21 days. Following through this, she will resume her aromatase inhibitor. Updated Visit, March 13, 2020: Delia is 59 years old and completed neoadjuvant chemotherapy with 4 cycles of TC with excellent clinical response. She unfortunately had residual tumor although no sentinel lymph nodes. She has just completed 4 of 20 fractions of breast radiation and then will follow with adjuvant chemotherapy with Xeloda for 8 cycles q3 weeks and AI therapy. She had numerous questions which I carefully answered and explained. They varied from prognosis to intial testing and the purpose of adjuvant therapy. Updated visit February 14, 2020: Delia is 59 years old and completed neoadjuvant chemotherapy with 4 cycles of TC with excellent clinical response. She unfortunately had residual tumor although no sentinel lymph nodes. We had a long discussion regarding the improvement in overall survival and outcomes with patients who had additional chemotherapy for residual tumor. We talked about data supporting Xeloda in the adjuvant setting following neoadjuvant therapy. We will discuss this again in 4 weeks. Of course she is disappointed to hear this, and appropriately so. Initial Visit, September 22, 2019: Tiny Mckenna presents accompanied by her Garrett saavedra for Hematology and Oncology evaluation. She is a 58 year old female who felt a lump in her Left breast in late April 2019 and Bilateral Mammography followed by ultrasound revealed two areas of suspision in both breasts. However, she had had prior silicone implants removed in April 2018 due to concern of leaking and there was a question of retained silicone vs. scar formation. The left breast lesion was found to be malignant on biopsy dated 08/31/2019 and detailed below. She has a strong family history of malignancy with her mother with breast cancer prior to age 50, maternal grandmother having colon cancer, and Father with Kidney cancer with paternal grandmother having breast cancer. She is post menopausal. We discussed the potential for mita-adjuvant therapy given the tumor size with respect to total breast volume as well as potential advantage of knowing responsiveness of disease. She is open to genetics counseling and I will refer her. RADIOGRAPHIC DATA: 2. 09/30/2019 bilateral MRI breast: Enhancing mass at the site of palpable concern at the superior slightly medial left breast. Within the left breast at approximately the 11:00 position at the site of palpable concern there is a lobulated mass like area measuring 2.1 x 2.8 x 2.3 cm. This shows mixed signal and there is associated enhancement. On the sagittal sequence the lesion extends close to the pectoralis muscle. There are axillary lymph nodes with fatty luis angel. No suspicious MRI findings on the right breast. 1. 08/26/2019 bilateral diagnostic mammography: [facility]. - Right breast with mild architectural distortion which improves with rolled views, likely related to implant removal. 1.5 cm rounded mass upper breast on MLO projection. Ultrasound shows at 11:00 a 1.3 x 1.6 x 1.2 cm hypoechoic mass with acoustic shadowing. - Left breast with mild architectural distortion which improves with rolled views, likely related to implant removal. Corresponding to the patient's palpable mass, demarcated with a triangle marker is a 2 cm oval lobular mass upper breast on MLO projection. Ultrasound shows at 12:00 a 1.9 x 1.8 x 2.0 cm lobular hard hypochromic mass with mild acoustic shadowing. Core biopsy was recommended. PATHOLOGIC PROFILE/MOLECULAR DATA: Reviewed on 08/28/2020 OncotypeDX RS 49 3. 01/25/2020 Left Breast Lumpectomy and SN: [facility]. Final Pathologic Diagnosis 1. Left sentinel node excision: One lymph node, negative for metastatic malignancy 2. Left sentinel lymph node #2, excision: One lymph node, negative for metastatic malignancy 3. 12 oclock left breast lumpectomy: INVASIVE HIGH GRADE DUCTAL MAMMARY CARCINOMA (1.5x 1.5 x 1.2cm) (pT1c) Background breast with cribriforming ductal carcinoma in situ (DCIS) Medial margin involved by invasive malignancy (see part 4 for final margin status) Comment: ER OR and HER 2 ancillary studies are pending and will follow in an addendum 4. Left breast mass, additional margin medial, excision: Benign fibroadipose tissue, no residual malignancy present at new margin CANCER CASE SUMMARY Procedure: lumpectomy Specimen laterality: Left Tumor size: 1.5x 1.5 x 1.2 cm Histologic type of invasive carcinoma: ductal Histologic grade: Otis histologic score: 8 Glandular (acinar)/tubular differentiation: 3 Nuclear pleomorphism: 3 Mitotic rate: 2 Overall grade: 3 Ductal carcinoma in situ: present Tumor extension: Skin: not involved Nipple: N/A Skeletal muscle: N/A Invasive carcinoma margins: uninvolved all margins > 1cm away DCIS Margins: negative closest margin inferior >1 cm away Regional lymph nodes: negative Number of lymph nodes examined: 2 Number of sentinel nodes examined (if applicable): 2 Treatment effect: N/A Pathologic Stage Classification (pTNM, AJCC 8th Edition) TNM descriptors: Primary tumor (pT): pT1c Regional lymph nodes (pN): pN0 Report Electronically Signed Out 01/28/2020 Leslye Vegas MD Addendum (PHS) Date Reported: 01/31/2020 Breast Biomarker Reporting Template Estrogen Receptor (ER) Positive (percentage of cells with nuclear positivity: 75%); Average intensity of staining: intermediate Progesterone Receptor (PgR) Negative Internal control cells present and stain as expected HER2 (by immunohistochemistry) Negative (Score 0) 2. 09/14/2019 2nd Bx right breast: Fat necrosis and negative for mlignancy. 1. 08/31/2019 ultrasound-guided biopsy bilateral breast masses: - Right breast 11:00 mass-benign breast parenchyma with focal stromal fibrosis. - Left breast mass at 12:00 biopsy consistent with invasive ductal carcinoma provisional grade 2-3. ER 80-90%, OR less than 1%, HER-2/adalberto IHC 0 REVIEW OF SYSTEMS Per HPI and otherwise negative by full review of organ systems. ECOG PERFORMANCE STATUS: 0 PHYSICAL EXAMINATION: Vitals: BP 118/83 Pulse 71 Temp (Src) 97.7 (Temporal) Resp 16 Ht 5' 4.567 (1.64m) Wt 141 lb (64.0kg) SpO2 98% BMI 23.78 kg/(m^2). Body surface area is 1.71 meters squared. General:This is an age-appropriate patient in no acute distress. Head: Atraumatic, symmetric with no lesions visible. Eyes: Pupils equally round and reactive to light, extraocular muscles intact. Neck: Supple Mouth: Mucous membranes are moist, no thrush is noted. Lungs: Clear to auscultation bilaterally with no wheezes crackles or rales. Cardiovascular: Regular rate and rhythm with no murmurs or gallops. Peripheral pulses: Normal. Gastrointestinal: Soft, nontender, normoactive bowel sounds, Hepatomegaly remains resolved on palpation. Musculoskeletal: No appreciable bony abnormalities or tenderness. Extremities: Lower extremities without edema. Neurologic: Nonfocal to gross visualization. Alert and oriented 3. Psychiatric: No evidence of inappropriate anxiety or depression. Skin: No overt rashes wounds or petechiae. Lymph node exam: No appreciable lymphadenopathy in cervical supraclavicular or axillary lymph node chains. Chaperoned Breast exam (Ferny Chacon): normal right breast with prior surgical scars from cosmetic surgery. Left breast with same scars but also lumpetomy scar in left upper outer quadrant - unchanged. ALLERGIES: ALLERGIES Allergen Reactions Adhesive Tape-Silic* Rash, Itching Codeine Vomiting MEDICATIONS: anastrozole (ARIMIDEX) 1 mg tablet Take 1 tablet by mouth once daily. Magnesium 250 mg tab Take 250 mg by mouth. calcium carbonate (CALCIUM 500 ORAL) Take 1,000 mg by mouth once daily. levothyroxine (SYNTHROID) 75 mcg tablet Take 75 mcg by mouth daily before breakfast. famotidine (PEPCID) 20 mg tablet Take 20 mg by mouth twice daily. cholecalciferol (VITAMIN D3) 5,000 unit tab Take 10,000 Units by mouth twice daily. hydrOXYzine HCl (ATARAX) 25 mg tablet Take 1 tablet by mouth daily at bedtime. vitamin B complex (B COMPLEX 1 ORAL) Take by mouth. TURMERIC ORAL Take by mouth. BIOTIN ORAL Take by mouth. loratadine 10 mg cap Take 10 mg by mouth once daily. LABORATORY VALUES: WBC (k/uL) Date Value 05/16/2022 5.02 RBC (m/uL) Date Value 05/16/2022 4.71 Hemoglobin (g/dL) Date Value 05/16/2022 13.5 Hematocrit (%) Date Value 05/16/2022 42.4 MCV (fL) Date Value 05/16/2022 90.0 MCH (pg) Date Value 05/16/2022 28.7 MCHC (g/dL) Date Value 05/16/2022 31.8 RDW-CV (%) Date Value 05/16/2022 13.3 Platelet Count (k/uL) Date Value 05/16/2022 305 MPV (fL) Date Value 05/16/2022 9.1 Glucose (mg/dL) Date Value 05/16/2022 129 (H) BUN (mg/dL) Date Value 05/16/2022 17 Creatinine (mg/dL) Date Value 05/16/2022 0.67 Sodium (mmol/L) Date Value 05/16/2022 138 Potassium (mmol/L) Date Value 05/16/2022 5.1 Chloride (mmol/L) Date Value 05/16/2022 105 CO2 (mmol/L) Date Value 05/16/2022 26 Protein, Total (g/dL) Date Value 05/16/2022 7.0 Albumin (g/dL) Date Value 05/16/2022 4.2 Calcium, Total (mg/dL) Date Value 05/16/2022 9.9 Alkaline Phosphatase (U/L) Date Value 05/16/2022 78 Bilirubin, Total (mg/dL) Date Value 05/16/2022 0.3 AST (U/L) Date Value 05/16/2022 14 ALT (U/L) Date Value 05/16/2022 12 DIAGNOSIS: (C50.912) Invasive ductal carcinoma of left breast (HCC) (primary encounter diagnosis) Plan: [facility] DIAGNOSTIC BILAT, CBC + DIFF, COMP METABOLIC PANEL PAST MEDICAL HISTORY Diagnosis Date Breast cancer (HCC) 08/31/2019 Left, ER+OR-, HER2- GERD (gastroesophageal reflux disease) Hypothyroidism Other osteoporosis without current pathological fracture 01/01/2021 Vitamin D deficiency PAST SURGICAL HISTORY Procedure Laterality Date BREAST BIOPSY Bilateral 08/31/2019 CHOLECYSTECTOMY COLONOSCOPY 2009 Social History Tobacco Use Smoking status: Former Smokeless tobacco: Never Vaping Use Vaping Use: current everyday user Substance Use Topics Alcohol use: Yes Comment: occasional Drug use: Never FAMILY HISTORY Problem Relation Age of Onset Cancer Mother Breast Fibromyalgia Mother Hypertension Father Heart disease Father Cancer Maternal Grandmother Colon Cancer Paternal Grandmother Breast I spent a total of 35 minutes on the date of the service which included preparing to see the patient, atfe-ob-erwa patient care, completing clinical documentation, performing a medically appropriate examination, counseling and educating the patient/family/caregiver, ordering medications, tests, or procedures, independently interpreting results (not separately reported) and communicating results to the patient/family/caregiver. Rodrick Patton MD, [place], [place] CC: Andreina Jj documented in this encounter [facility] 05-13-2022 Miscellaneous Notes If needed, place lab orders for 05/16/22. Magdalena Chacon Ma documented in this encounter [facility] 04-29-2022 Miscellaneous Notes Received call from Tiny requesting that authorization be withdrew for Prolia so she may obtain injections at a different sight of care. Patient provided phone number opt 2 Call placed and request submitted by Dav Richardson rPh. Reference # for request: [id number] provided by Jude Baron Call placed back to Tiny to give her the reference number. Dav Richardson rPh documented in this encounter [facility] 01-22-2022 Note PROCEDURE: XR FOOT R T MIN 3 VIEWS COMPARISON: 12/25/2021 HISTORY: Pain in right foot FINDINGS: BONES:Stable oblique fracture diaphysis of the fourth proximal phalanx. No change in angulation or distraction. The fracture plane is less evident with increased sclerosis consistent with interval healing. No new fracture or dislocation. SOFT TISSUES:Negative. No visible soft tissue swelling. EFFUSION:None visible. OTHER: Negative. IMPRESSION: Stable healing extra-articular fracture diaphysis of the fourth proximal phalanx Electronically authenticated by: RANJANA ZHANG Date: 2022-01-22 17:10 [facility] 12-26-2021 Note PROCEDURE: XR FOOT R T MIN 3 VIEWS COMPARISON: 11/20/2021 HISTORY: Pain in right foot FINDINGS: BONES:Stable healing oblique fracture through the diaphysis of the fourth proximal phalanx with interval bone formation and partial bony bridging. No change in angulation or distraction. Shortening of the first toe compared to the second toe, unchanged likely developmental. No new fracture or dislocation. SOFT TISSUES:Negative. No visible soft tissue swelling. EFFUSION:None visible. OTHER: Negative. IMPRESSION: Stable healing extra-articular fracture diaphysis of the fourth proximal phalanx Electronically authenticated by: RANJANA ZHANG Date: 2021-12-26 06:57 [facility] 11-20-2021 Note PROCEDURE: XR FOOT R T MIN 3 VIEWS COMPARISON: None. HISTORY: Pain in right foot FINDINGS: BONES:Acute extra-articular oblique fracture through the diaphysis of the fourth proximal phalanx with distraction 2 mm. No dislocation. SOFT TISSUES:Negative. No visible soft tissue swelling. EFFUSION:None visible. OTHER: Negative. IMPRESSION: Acute oblique extra-articular fracture diaphysis of the fourth proximal phalanx Electronically authenticated by: RANJANA ZHANG Date: 2021-11-20 09:43 [facility] Evaluation note Diagnosis Invasive ductal carcinoma of left breast (HCC)- Primary [facility] Diagnosis Invasive ductal carcinoma of left breast (HCC)- Primary [facility] Diagnosis Invasive ductal carcinoma of left breast (HCC) [facility] ([facility])* Diagnostic Procedure Only (Routine) - Waiting for Response Specialty Diagnoses / Procedures Referred By Contac t Referred To Contact [facility] Diagnoses Invasive ductal carcinoma of left breast (HCC) Procedures DION DIAGNOSTIC BILAT DIAGNOSTIC MAMMOGRAPHY COMPUTER-AIDED DETCJ BI Abhyankar, Rodrick, MD [address] [place] [address] [place] [address] [facility] [address] [place] [address] Referral ID Status Reason Start Date Expiration Date Visits Requested Visits Authorized [id number] Waiting for Response Auto-Generat ed Referral 11/14/2022 06/15/2023 1 1 [facility] Summary Purpose Family History No Family History Records FoundNo Family History Records FoundNo Family History Records FoundNo Family History Records Found Advance Directives No Advanced Directives Records FoundNo Advanced Directives Records FoundNo Advanced Directives Records FoundNo Advanced Directives Records Found Additional Source Comments INFORMATION SOURCE (unrecogn ized section and content) DATE CREATED AUTHOR 04/01/2021 [facility] DATE CREATED AUTHOR AUTHOR'S ORGANIZ ATION 09/06/2022 [facility] DATE CREATED AUTHOR AUTHOR'S ORGANIZ ATION 07/17/2023 [facility] DATE CREATED AUTHOR AUTHOR'S ORGANIZ ATION 09/11/2023 [facility] EPIC Source Comments (unrecognize d section and content) In the event this informatio n is protected by the Federal Confidentiality of Alcohol and Drug Abuse Patient Records regulations: The Federal rules restrict any use of the information to criminally investigate or prosecute any alcohol or drug abuse patient.[facility] the event this information is protected by the Federal Confidentiality of Alcohol and Drug Abuse Patient Records regulations: The Federal rules restrict any use of the information to criminally investigate or prosecute any alcohol or drug abuse patient.[facility] the event this information is protected by the Federal Confidentiality of Alcohol and Drug Abuse Patient Records regulations: The Federal rules restrict any use of the information to criminally investigate or prosecute any alcohol or drug abuse patient.[facility] Center[facility] the event this information is protected by the Federal Confidentiality of Alcohol and Drug Abuse Patient Records regulations: The Federal rules restrict any use of the information to criminally investigate or prosecute any alcohol or drug abuse patient.[facility] Center[facility] the event this information is protected by the Federal Confidentiality of Alcohol and Drug Abuse Patient Records regulations: The Federal rules restrict any use of the information to criminally investigate or prosecute any alcohol or drug abuse patient.[facility] Center[facility] the event this information is protected by the Federal Confidentiality of Alcohol and Drug Abuse Patient Records regulations: The Federal rules restrict any use of the information to criminally investigate or prosecute any alcohol or drug abuse patient.[facility] Center[facility] the event this information is protected by the Federal Confidentiality of Alcohol and Drug Abuse Patient Records regulations: The Federal rules restrict any use of the information to criminally investigate or prosecute any alcohol or drug abuse patient.[facility] Reason for Visit (unrecogniz ed section and content) Reason Comments Medication Problem Delia requesting auth be with drawn for Prolia Reason Comments Lab Orders Reason Comments Breast Cancer Specialty Diagnoses / Procedures Referred By Rosalee t Referred To Contact [facility] Diagnoses Invasive ductal carcinoma of left breast (HCC) left breast cancer Procedures OFFICE/OUTPATIENT ESTABLISHED MOD MDM 30-39 MIN consult test and treat Rodrick Patton MD [address] [place] [address] [place] [address] [facility] [place] [address] [place] [address] Referral ID Status Reason Start Date Expiration Date Visits Requested Visits Authorized [id number] Closed Financial Clearance Required - OON Payor OON Notification Letter Patient cleared - OON Required Payment Collected 2 08/14/2022 1 1 Reason Comments Refill Request Reason Comments Brand Marketing Specialist Care Teams (unrecognized sec tion and content) Sandblast Operator Relationship Specialty Start Date End Date David Tamez [address] [place] [address] PCP - General Internal Medicine 09/13/19 Rodrick Patton MD [place] [address] Physician Hematology/Oncology 10/07/19 Stephanie Stovall, SHANNON [address] [place] [address] Specialty Curriculum Supervisor Hematology/Oncology 10/07/19 Samson Siegel, MANAGER PACKAGING.TIRE BAGGER [address] [place] [address] Nurse Practitioner Hematology/Oncology 10/07/19 Brad Bond MD [address] [place] [address] Physician Radiation Oncology 01/13/20 Sandblast Operator Relationship Specialty Start Date End Date David Tamez [address] [place] [address] PCP - General Internal Medicine 09/13/19 Rodrick Patton MD [address] [place] [address] Physician Hematology/Oncology 10/07/19 Stephanie Stovall, SHANNON [address] [place] [address] Specialty Curriculum Supervisor Hematology/Oncology 10/07/19 Samson Siegel, MANAGER PACKAGING.TIRE BAGGER [address] [place] [address] Nurse Practitioner Hematology/Oncology 10/07/19 Brad Bond MD [address] [place] [address] Physician Radiation Oncology 01/13/20 Sandblast Operator Relationship Specialty Start Date End Date David Tamez [address] [place] [address] PCP - General Internal Medicine 09/13/19 Rodrick Patton MD [address] [place] [address] Physician Hematology/Oncology 10/07/19 Stephanie Stovall, RN [address] [place] [address] Specialty Curriculum Supervisor Hematology/Oncology 10/07/19 Samson Siegel, MANAGER PACKAGING.[address] [place] [address] Nurse Practitioner Hematology/Oncology 10/07/19 Brad Bond MD [address] [place] [address] Physician Radiation Oncology 01/13/20 Sandblast Operator Relationship Specialty Start Date End Date David Tamez [address] [place] [address] PCP - General Internal Medicine 09/13/19 Rodrick Patton MD [address] [place] [address] Physician Hematology/Oncology 10/07/19 Stephanie Stovall, RN [address] [place] [address] Specialty Curriculum Supervisor Hematology/Oncology 10/07/19 Samson Siegel, MANAGER PACKAGING.[address] [place] [address] Nurse Practitioner Hematology/Oncology 10/07/19 Brad Bond MD [address] [place] [address] Physician Radiation Oncology 01/13/20 Sandblast Operator Relationship Specialty Start Date End Date David Tamez [address] [place] [address] PCP - General Internal Medicine 09/13/19 Rodrick Patton MD [address] [place] [address] Physician Hematology/Oncology 10/07/19 Samson Siegel, ELIAN.TIRE BAGGER [address] [place] [address] [place] [address] Nurse Practitioner Hematology/Oncology 10/07/19 Brad Bond MD [address] [place] [address] [place] [address] Physician Radiation Oncology 01/13/20 Sandblast Operator Relationship Specialty Start Date End Date David Tamez [facility] [place] [address] PCP - General Internal Medicine 09/13/19 Rodrick Patton MD [address] [place] [address] [place] [address] Physician Hematology/Oncology 10/07/19 Samson Siegel, ELIAN.TIRE BAGGER [address] [place] [address] [place] [address] Nurse Practitioner Hematology/Oncology 10/07/19 Brad Bond MD [address] [facility] [place] [address] Physician Radiation Oncology 01/13/20 FOR RECORDS PERTAINING TO PATIENTS WHO ARE OR HAVE BEEN ENROLLED IN A CHEMICAL DEPENDENCY/SUBSTANCEABUSE PROGRAM, SOME INFORMATION MAY BE OMITTED. This clinical summary was aggregated from multiple sources. Caution should be exercised in using it in the provision of clinical care. This summary normalizes information from multiple sources, and as a consequence, information in this document may materially change the coding, format and clinical context of patient data. In addition, data may be omitted in some cases. CLINICAL DECISIONS SHOULD BE BASED ON THE PRIMARY CLINICAL RECORDS. [facility] [employer] [facility]. provides no warranty or guarantee of the accuracy or completeness of information in this document.
[2023-11-13 13:01] LABS: Basophils Absolute Auto 0.1 10^3/uL (0.0-0.1); Eosinophils Absolute Auto 0.1 10^3/uL (0.0-0.7); Eosinophils Percent Auto 1.2 % (0.9-7.0); Hematocrit 41.4 % (36.0-48.0); Hemoglobin 13.7 g/dL (12.0-16.0); Immature Granulocytes Abs Auto 0.01 10^3/uL (0.00-0.03); Immature Granulocytes Pct Auto 0.2 % (0.0-0.5); Lymphocytes Absolute Auto 1.6 10^3/uL (1.2-3.8); Lymphocytes Percent Auto 32.9 % (20.5-60.0); Mean Corpuscular HGB Conc 33.1 g/dL (29.9-35.2); Mean Corpuscular Hemoglobin 29.3 pg (26.7-34.0); Mean Corpuscular Volume 88.7 fL (81.0-99.0); Mean Platelet Volume 9.4 fL (9.5-13.5); Monocytes Absolute Auto 0.4 10^3/uL (0.3-0.8); Neutrophils Absolute Auto 2.8 10^3/uL (1.4-6.5); Neutrophils Percent Auto 56.7 % (43.0-75.0); Platelet Count 308 10^3/uL (150-450); Red Blood Count 4.67 10^6/uL (4.20-5.40); Red Cell Distribution Width 13.6 % (11.0-15.0)
[2023-11-13 13:38] LABS: Alanine Aminotransferase 30 U/L (14-59); Albumin Level 3.9 g/dL (3.4-5.0); Alkaline Phosphatase 98 U/L (46-116); Anion Gap 13.5; Aspartate Amino Transferase 17 U/L (15-37); BUN Creatinine Ratio 18.3; Bilirubin Total 0.6 mg/dL (0.2-1.0); Calcium 9.7 mg/dL (8.5-10.1); Carbon Dioxide 26.5 mmol/L (21.0-32.0); Chloride 102 mmol/L (98-107); Estimated GFR (African America >60 (>=60); Estimated GFR (Non-African Ame >60 (>=60); Globulin 3.8 g/dL; Glucose 126 mg/dL (74-106); Sodium 138 mmol/L (136-145); Total Protein 7.7 g/dL (6.4-8.2)
== END 2023-11-13 12:36 | disposition home or self-care (01) ==
LOC: LAB 12:36
PROVIDERS: PCP Nurse Practitioner; Visit Provider Internal Medicine Hematology & Oncology
DX: C50.912 Malignant neoplasm of unspecified site of left female breast (principal); M81.8 Other osteoporosis without current pathological fracture
CPT/HCPCS: 36415; 80053; 82306; 85025

== ENCOUNTER 2024-01-21 14:34 | Outpatient (OUT) | payer OTHER, SELFPAY ==
--- NOTE | 2024-01-21 14:39 | XR_ITS ---
[address] [address] Patient Name: SAMPSON MCKENNA MRN: [id number] date: 1960 Sex: F Assigned Patient Location: LAB Current Patient Location: Accession/Order Number: [id number] Exam Date: 01/21/2024 14:43 Report Date: 01/23/2024 10:02 At the request of: CURTIS ANDRADE Procedure: XR ribs RT min 3V w CXR1V EXAMINATION: XR ribs RT min 3V w CXR1V HISTORY: Right Rib Pain R07.81 COMPARISON: XR abdomen with PA chest 12/17/2019 FINDINGS: LUNGS: Mild atelectasis versus infiltrates within right lung base. Left lung is well-expanded and clear. PLEURA: Small-moderate right pleural effusion. MEDIASTINUM: No visible mass or adenopathy. CARDIAC: No cardiomegaly or cardiac silhouette abnormality. RIBS: Minimally displaced fracture of lateral right 5th rib. OTHER: Negative. XR/XR ribs RT min 3V w CXR1V IMPRESSION: 1. Acute, minimally displaced fracture of lateral right 5th rib. 2. Moderate right pleural effusion and mild basilar atelectasis or possibly infiltrates. 3. No pneumothorax. Electronically authenticated by: LALO TRISTAN Date: 01/23/2024 10:02
--- OUTSIDE RECORDS SUMMARY | 2024-01-21 14:51 | XMS_ITS | CCD ---
Author Organization [facility] Care Team Providers Care River Captain Name Role Phone David Tamez Primary Care Provider Abdi ROSS, Rodrick Unavailable Wilman ORTEGA, Stephanie Unavailable [phone] Oren PLUMMER.COIL WRAPPER, Samson Unavailable [phone] Varun ROSS, Brad Unavailable RODRICK PATTON Admitting Unavailable DR LALO SALEEM Consulting Unavailable ABDI, RODIRCK Attending Unavailable AICHHOLZ, COIL WRAPPER CURTIS Primary Care Unavailable YIFAN PATTONEK Consulting Unavailable AICHHOLZ, COIL WRAPPER CURTIS Attending Unavailable AICHHOLZ, COIL WRAPPER CURTIS Consulting Unavailable AICHHOLZ, COIL WRAPPER CURTIS Primary Care Unavailable AICHHOLZ, COIL WRAPPER CURTIS Admitting Unavailable AICHHOLZ, COIL WRAPPER CURTIS Attending Unavailable AICHHOLZ, COIL WRAPPER CURITS Consulting Unavailable AICHHOLZ, COIL WRAPPER CURTIS Primary Care Unavailable AICHHOLZ, COIL WRAPPER CURTIS Admitting Unavailable AICHHOLZ, COIL WRAPPER CURTIS Primary Care Unavailable DR RANJANA ZHANG V Consulting Unavailable FAWWAD, ESCOBAR H Admitting Unavailable FAWWAD, ESCOBAR H Attending Unavailable FAWWAD, ESCOBAR H Consulting Unavailable DR RANJANA ZHANG V Consulting Unavailable POOL, GAYATRI Admitting Unavailable AICHHOLZ, COIL WRAPPER CURTIS Primary Care Unavailable GAYATRI LANZA Attending Unavailable POOL, GAYATRI Consulting Unavailable AICHHOLZ, COIL WRAPPER CURTIS Attending Unavailable AICHHOLZ, COIL WRAPPER CURTIS Primary Care Unavailable AICHHOLZ, COIL WRAPPER CURTIS Admitting Unavailable AICHHOLZ, COIL WRAPPER CURTIS Attending Unavailable AICHHOLZ, COIL WRAPPER CURTIS Primary Care Unavailable AICHHOLZ, COIL WRAPPER CURTIS Consulting Unavailable AICHHOLZ, COIL WRAPPER CURTIS Admitting Unavailable AICHHOLZ, COIL WRAPPER CURTIS Primary Care Unavailable VICENTE, DR RANJANA Crawford Consulting Unavailable GAYATRI LANZA Admitting Unavailable GAYATRI LANZA Attending Unavailable GAYATRI LANZA Consulting Unavailable David Tamez Primary Care Provider CURTSI ANDRADE Attending Unavailable David Tamez Primary Care Provider ABHYANKAR, RODRICK Referring Unavailable ABHYANKAR, RODRICK Attending Unavailable DAVID TAMEZ Primary Care Unavailable ABHYANKAR, RODRICK Attending Unavailable DAVID TAMEZ Primary Care Unavailable ABHYANKAR, RODRICK Referring Unavailable DAVID TAMEZ Primary Care Unavailable ABHYANKAR, RODRICK Referring Unavailable Allergies Allergy Classification Reported Allergen(s) Allergy Type Date of Onset Reaction(s) Facility Opioid Agonists (1 source) Codeine; Translations: [CODEINE] Drug Allergy 08-26-2019 [facility] Repository (9 sources) Codeine Drug Allergy 08-26-2019 Vomiting [facility] (10 sources) Adhesive Tape-Silicones; Translations: [ADHESIVE TAPE-SILICONES] Drug Allergy 09-20-2019 Rash, Itching [facility] (1 source) Adhesive bandage Drug allergy (disorder) 09-14-2019 [facility] (1 source) Codeine Drug Allergy 08-26-2019 [facility] Repository Medications Current Medications Medication Drug Class(es) Dates Sig (Normalized) Sig (Original) anastrozole 1 mg oral tablet (11 sources) Aromatase Inhibitor Start: 11-08-2021 End: 01-12-2024 anastrozole (ARIMIDEX) 1 mg tablet Indications: 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 TAKE 1 TABLET ONCE D AILY Biotin (9 sources) BIOTIN ORAL Take by mouth. 0 Active Comment on above: Take by mouth. calcium carbonate 1000 mg oral tablet (9 sources) take 1000 mg by mouth once daily calcium carbonate (CALCIUM 500 ORAL) Take 1,000 mg by mouth once daily. 0 Active Comment on above: Take 1,000 mg by inessa th once daily. cholecalciferol 0.125 mg oral tablet (9 sources) Vitamin D take 2 tablets by mouth twice daily cholecalciferol (VITAMIN D3) 5,000 unit tab Take 10,000 Units by mouth twice daily. 0 Active Comment on above: Take 10,000 Units by mouth twice daily. famotidine 20 mg oral tablet (9 sources) Histamine-2 Receptor Antagonist take 1 tablet by mouth twice daily famotidine (PEPCID) 20 mg tablet Take 20 mg by mouth twice daily. 0 Active Comment on above: Take 20 mg by mouth twice daily. fexofenadine (6 sources) Histamine-1 Receptor Antagonist fexofenadine HCl (FEXOFENADINE ORAL) Take by mouth. 0 Active Comment on above: Take by mouth. hydrOXYzine hydrochloride 25 mg oral tablet (9 sources) Antihistamine Start: 07-17-2020 take 1 tablet by mouth once daily at bedtime hydrOXYzine HCl (ATARAX) 25 mg tablet Take 1 tablet by mouth daily at bedtime. 30 tablet 1 07/17/2020 Active Comment on above: Take 1 tablet by inessa th daily at bedtime. levothyroxine sodium 0.075 mg oral tablet (9 sources) l-Thyroxine take 1 tablet by mouth once daily before breakfast levothyroxine (SYNTHROID) 75 mcg tablet Take 75 mcg by mouth daily before breakfast. 0 Active Comment on above: Take 75 mcg by mouth daily before breakfast. loratadine 10 mg oral capsule (9 sources) take 1 capsule by mouth once daily loratadine 10 mg cap Take 10 mg by mouth once daily. 0 Active Comment on above: Take 10 mg by mouth once daily. Magnesium (9 sources) Magnesium 250 mg tab Take 250 mg by mouth. 0 Active Comment on above: Take 250 mg by mouth . Turmeric extract (9 sources) TURMERIC ORAL Ta ke by mouth. 0 Active Comment on above: Take by mouth. Vitamin B Complex (9 sources) vitamin B comple x (B COMPLEX 1 ORAL) Take by mouth. 0 Active Comment on above: Take by mouth. Problems Active Problems Problem Classification Problem Date Documented Da te Episodic/Chronic Cancer of breast (18 sources) Infiltrating duct carcinoma of breast; Translations: [Malignant neoplasm of unspecified site of left female breast] Onset: 10-07-2019 10-07-2019 Chronic Nutritional deficiencies (1 source) Vitamin D deficiency, unspecified; Translations: [VITAMIN D DEFICIENCY UNSPECIFIED] Onset: 09-06-2022 Chronic Osteoporosis (13 sources) Osteoporosis; Translations: [Other osteoporosis without current pathological fracture] Onset: 01-01-2021 01-01-2021 Chronic Other aftercare (3 sources) Prophylactic aromatase inhibitors given; Translations: [long-term (current) use of aromatase inhibitors] Onset: 11-19-2023 11-19-2023 Episodic Other screening for suspected conditions (not mental [...] Test Name Value Interpretation Reference Range Facility [facility] 11-19-2023 [facility] Visit (SP) Office (HEMASA) TINY MCKENNA ([id number]) 1960 F Date Time Provider Department 11/19/23 10:15 AM RODRICK PATTON During your visit today, we recorded the following information about you: Temperature Pulse Respiration Blood pressure 97.4 degrees 66/minute 16/minute 140/77 Weight Height 64.3 kg 1.64 m Heavenly Trejo MA 11/19/2023 10:13 AM Signed Patient had labs at [facility] they are in Care Everywhere. LUCRECIA Song Vivek, MD 11/19/2023 7:40 PM Signed NAME: Tiny Mckenna CLINIC NO.: [id number] DATE OF SERVICE: November 19, 2023 (Abdi) Some elements in this clinic note that are critical to medical decision making have been carefully reviewed and included from a prior clinic note dated: May 15, 2023 (Abdi) Referring Provider: Dr. 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 ER positive and AL and HER-2/adalberto were both negative. She completed [...] palpable on exam 11/22/2021. Repeat Dexa in 11/2024 PLAN: RTC in 6 months for labs and exam Prolia in December 2023 - patient will call. (At [facility]) next DXA in 11/2024 DXA ordered, reschedule to 11/2024 at [facility]. HPI: CASE HISTORY: Reverse Chronological Order 09/27/2023 - Mammogram - BiRads 2. 06/05/2020-11/13/2020 - adjuvant Xeloda 1500 mg BID X 14 days every 21 days x 8 cycles; dose reduced to 1000mg BID x 14 days on and 7 days off with cycle 5. 03/08/2020-04/04/2020 - adjuvant radiation Left breast 4005cGy in 15 fractions with surgical cavity boost 1000 cGy in 5 fractions 10/11/2019-12/13/2019 - Neoadjuvant taxotere + cytoxan ?4 cycles 09/30/2019 - Bilateral MRI breast: Enhancing mass at the site [...] MRI findings on the right breast. 08/26/2019 - Bilateral diagnostic mammography: [facility]. Right breast with mild architectural distortion which [...] shadowing. Core biopsy was recommended. Updated Visit, November 19, 2023: Returns with Garrett Tumor markers check 11/13/2023 at [facility] were normal All labs normal aside rom lipids and fasting blood sugars. She's doing well otherwise. Brought her mom home with Hospice due to general failure to thrive and dementia. Chaperoned Breast Exam November 19, 2023 (Nico Pina) : Right breast is soft with prior reconstruction, Left breast is also soft with prior reconstruction and also with cancer resection. Valentino exam is negative. Updated Visit, May 15, 2023: Delia returns today with Garrett. She is doing fine with the Anastrozole, other than feeling much more fatigued the past few months. I would advise her to hold the Anastrozole for 2 weeks to see if there is improvement, and if none she can restart it after that. If this does hospitalist nocturnist physician to be the cause, we will plan to switch to an alterna (more content not included)... Normal [facility] CNPNon 07-15-2023 CNPN Telephone (HEMASA) TINY MCKENNA ([id number]) 1960 F Date Time Provider Department 07/15/23 KOSTAS FALK During your visit today, we recorded the following information about you: Kostas Falk RN 07/15/2023 3:26 PM Signed Pt sent Bestcakehart with Medical Certification Specialist information: The derrickman helper is Dr Aidan Resendiz, phone is [phone] email is [email or web address] I have another consultation with him on [...] and should be great - Thanks! Kostas Flak RN 07/16/2023 9:26 AM Signed Note completed, review and signed. Faxed to Dr Resendiz office. Kostas Falk RN Allergies As of Date: 07/15/2023 Noted Allergy Reaction ADHESIVE TAPE-SILICONES 09/20/2019 2 - Rash 9 - Itching CODEINE 08/26/2019 11 - Vomiting Date Reviewed: 05/15/2023 Reviewed by: Paulina Fry - Fully Assessed Reason for Visit: Medical Certification Specialist [Other] Prescriptions as of 07/16/2023 - [...] Encounter Status:Closed by KOSTAS FALK on 07/16/[address] [facility] CNOVSPon 05-15-2023 OVSP Visit (SP) Office (JAIMEE) TINY MCKENNA ([id number]) 1960 F Date Time Provider Department 05/15/23 10:30 AM RODRICK PATTON During your visit today, we recorded the following information about you: Temperature Pulse Respiration Blood pressure 97.8 degrees 71/minute 18/minute 137/89 Weight Height 68.2 kg 1.64 m Rodrick Patton MD 05/15/2023 8:36 PM Signed NAME: Tiny Mckenna CLINIC NO.: [id number] DATE OF SERVICE: May 15, 2023 (Abdi) Some elements in this clinic note that are critical to medical decision making have been carefully reviewed and included from a prior clinic note dated: November 14, 2022 (Abdi) Referring Provider: Dr. 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 ER positive and AL and HER-2/adalberto were both negative. She completed [...] 12/2023 DXA ordered, scheduled for 12/2023 at [facility]. HPI: Case History: 06/05/2020- 11/13/2020: adjuvant Xeloda [...] the right breast. 08/26/2019 bilateral diagnostic mammography: [facility]. Right breast with mild architectural distortion which [...] restart it after that. If this does hospitalist nocturnist physician to be the cause, we will plan [...] increased s (more content not included)... Normal [facility] ([id number]) 1960 F Date Time Provider Department 05/15/23 [facility] During your visit today, we recorded the following information about you: Lamont Christine 05/15/2023 11:29 AM Signed DXA ordered, scheduled for 12/2023 at [facility]. CIPRIANO: Patient just had a DEXA scan this year, November 2022 so she will not be due until 2024 - also insurances typically only cover every 2 years. Is there a reason we are doing earlier? Also, patient would like her labs drawn at [facility] prior to 6 month follow up due [...] PM Signed Sorry - 2024 is good EmmettLamont 05/16/2023 10:05 AM Signed Patient notified and in agreement. Mailed lab orders to her at her request. Lamont Felishey Allergies As of Date: 05/15/2023 Noted Allergy Reaction ADHESIVE TAPE-SILICONES 09/20/2019 2 - Rash 9 - Itching CODEINE 08/26/2019 11 - Vomiting Date Reviewed: 05/15/2023 Reviewed by: Paulina Fry - Fully Assessed Reason for Visit: Orders [681] Primary Visit Diagnosis:Invasive ductal carcinoma of left breast (HCC) [C50.912] Other Visit Diagnosis:Other osteoporosis without current pathological fracture [M81.8] Order(s):COMP METABOLIC PANEL [SQCMP] Order #: [id number] FUTURE CBC + DIFF [SQCBCDIF] Order #: [id number] FUTURE CA 15-3 BLD [ESVC214] Order #: [id number] FUTURE CA 27.29 BLOOD [DNZN2551] Order #: [id number] FUTURE VITAMIN D 25 HYDROXY [SQVITD] Order #: [id number] FUTURE Prescriptions as of 05/16/2023 - anastrozole [...] osteoporosis without current pathological*01/02/20 Encounter Status:Closed by LAMONT CHRISTINE on 05/16/23 Normal [facility] PAP ACOG PANEL 2: 30 to 65on 09-05-2022 . . Normal [facility] Comment on above: Result Comment: Perf ormed at: WB Performed By: #### [id number] #### [facility] [address] [address] [address] Shashi Cohen Age Gdln ACOG Testing 30-65 Normal [facility] Comment on above: Performed By: #### [id number] #### [facility] [address] [address] [address] Shashi Cohen DIAGNOSIS: Comment Normal [facility] Comment on above: Result Comment: NEGA TIVE FOR INTRAEPITHELIAL LESION OR MALIGNANCY. Performed at: WB Performed By: #### 4 [id number] #### [facility] [address] [address] [address] Shashi Cohen HPV Aptima Negative Normal Negative [facility] Comment on above: Result Comment: This nucleic acid amplification test detects fourteen high-risk HPV types (16,18,31,33,35,39,45,51,52,56,58,59,66,68) without differentiation. Performed at: =G Performed By: #### [id number] #### [facility] [address] [address] [address] Shashi Cohen HPV Genotype Reflex Comment Normal [facility] Comment on above: Result Comment: Crit eria not met, HPV Genotype not performed. Performed at: WB Performed By: #### [id number] #### [facility] [address] [address] [address] Shashi Cohen Methodology: Comment Normal [facility] Comment on above: Result Comment: This liquid based ThinPrep(R) pap test was screened with the use of an image guided system. Performed at: WB Performed By: #### [id number] #### [facility] [address] [place] [address] Dr. Shashi Cohen Note: Comment Normal [facility] Comment on above: Result Comment: The Pap smear is a screening test designed to aid in the detection of premalignant and malignant conditions of the uterine cervix. It is not a diagnostic procedure and should not be used as the sole means of detecting cervical cancer. Both false-positive and false-negative reports do occur. . Performed at: WB Performed By: #### [id number] #### [facility] [address] [place] [address] Dr. Shashi Cohen Performed by: Comment Normal [facility] Comment on above: Result Comment: Sujata Shahid, Dag Coater (ASCP) Performed at: WB Performed By: #### [id number] #### [facility] [address] [place] [address] Dr. Shashi Cohen Specimen adequacy: Comment Normal [facility] Comment on above: Result Comment: Sati sfactory for evaluation. Performed at: WB Performed By: #### 4 [id number] #### [facility] [address] [place] [address] Dr. Shashi Cohen CBC AUTO DIFFon 08-29-2022 BASO # 0.0 103/ul Normal 0.0-0.1 [facility] Comment on above: Performed By: #### C BC #### [facility] [address] [place] [address] Dr. Shashi Cohen Basophils/100 WBC (Bld) 0.7 % Normal 0.2-2.0 [facility] Comment on above: Performed By: #### C BC #### [facility] [address] [place] [address] Dr. Shashi Cohen EO # 0.1 103/ul Normal 0.0-0.7 [facility] Comment on above: Performed By: #### C BC #### [facility] [address] [place] [address] Dr. Shashi Cohen Eosinophils/100 WBC (Bld) 1.4 % Normal 0.9-7.0 [facility] Comment on above: Performed By: #### C BC #### [facility] [address] [place] [address] Dr. Shashi Cohen Erythrocyte distribution width (RBC) [Ratio] 13.7 % Normal 11.0-15.0 [facility] Comment on above: Performed By: #### C BC #### [facility] [address] [place] [address] Dr. Shashi Cohen Hematocrit (Bld) [Volume fraction] 43.9 % Normal 36.0-48.0 [facility] Comment on above: Performed By: #### C BC #### [facility] [address] [place] [address] Dr. Shashi Cohen Hemoglobin (Bld) [Mass/Vol] 14.1 g/dL Normal 12.0-16.0 [facility] Comment on above: Performed By: #### C BC #### [facility] [address] [place] [address] Dr. Shashi Cohen IG # 0.02 10e3/ul Normal 0.00-0.03 [facility] Comment on above: Performed By: #### C BC #### [facility] [address] [place] [address] Dr. Shashi Cohen IG % 0.4 % Normal 0.0-0.5 [facility] Comment on above: Performed By: #### C BC #### [facility] [address] [place] [address] Dr. Shashi Cohen LYMPH # 1.9 103/ul Normal 1.2-3.8 [facility] Comment on above: Performed By: #### C BC #### [facility] [address] [place] [address] Dr. Shashi Cohen Lymphocytes/100 WBC (Bld) 33.2 % Normal 20.5-60.0 [facility] Comment on above: Performed By: #### C BC #### [facility] [address] [place] [address] Dr. Shashi Cohen MANUAL DIFF REQ NO Normal [facility] Comment on above: Performed By: #### C BC #### [facility] [address] [place] [address] Dr. Shashi Cohen MCH (RBC) [Entitic mass] 28.7 pg Normal 26.7-34.0 [facility] Comment on above: Performed By: #### C BC #### [facility] [address] [place] [address] Dr. Shashi Cohen MCHC (RBC) [Mass/Vol] 32.1 g/dL Normal 29.9-35.2 [facility] Comment on above: Performed By: #### C BC #### [facility] [address] [place] [address] Dr. Shashi Cohen MCV (RBC) [Entitic vol] 89.2 fL Normal 81.0-99.0 [facility] Comment on above: Performed By: #### C BC #### [facility] [address] [place] [address] Dr. Shashi Cohen MONO # 0.5 103/ul Normal 0.3-0.8 [facility] Comment on above: Performed By: #### C BC #### [facility] [address] [place] [address] Dr. Shashi Cohen Monocytes/100 WBC (Bld) 8.8 % Normal 1.7-12.0 [facility] Comment on above: Performed By: #### C BC #### [facility] [address] [place] [address] Dr. Shashi Cohen NEUT # 3.1 103/ul Normal 1.4-6.5 [facility] Comment on above: Performed By: #### C BC #### [facility] [address] [place] [address] Dr. Shashi Cohen Neutrophils/100 WBC (Bld) 55.5 % Normal 43.0-75.0 [facility] Comment on above: Performed By: #### C BC #### [facility] [address] [place] [address] Dr. Shashi Cohen Platelet mean volume (Bld) [Entitic vol] 9.9 fL Normal 9.5-13.5 [facility] Comment on above: Performed By: #### C BC #### [facility] [address] [address] [address] Shashi Cohen PLT 244 103/ul Normal 150-450 [facility] Comment on above: Performed By: #### C BC #### [facility] [address] [address] [address] Shashi Cohen RBC 4.92 106/ul Normal 4.20-5.40 [facility] Comment on above: Performed By: #### C BC #### [facility] [address] [address] [address] Shashi Cohen WBC 5.6 103/ul Normal 4.0-11.0 [facility] Comment on above: Performed By: #### C BC #### [facility] [address] [address] [address] Shashi Cohen GLYCOHEMOGLOBIN A1Con 2022 ADA RECOMMENDATION SEE BELOW Normal [facility] Comment on above: Result Comment: ADA RECOMMENDED LIMIT 4.0 - 6.0 ADA THERAPEUTIC TARGET < 7.0 ACTION SUGGESTED > 7.0 Performed By: #### A 1C ####[facility] [address] [address]Dr. Shashi Cohen Glucose [Mass/Vol] 126 mg/dL Normal [facility] Comment on above: Performed By: #### A 1C ####[facility] [address] [id number][address] Shashi Cohen HbA1c (Bld) [Mass fraction] 6.0 % Normal 4.5-6.2 [facility] Comment on above: Performed By: #### A 1C ####[facility] [address] [address]Dr. Shashi Cohen LIPID PROFILEon 08-29-2022 CHOL-HDL RATIO NORM SEE BELOW Normal [facility] Comment on above: Result Comment: 3.3 - 4.4 LOW RISK 4.4 - 7.1 AVERAGE RISK 7.1 - 11.0 MODERATE RISK >11.0 HIGH RISK Performed By: #### T SH, CMP, LIPID #### [facility] [address] [address] [address] Shashi Cohen Cholesterol [Mass/Vol] 186 mg/dL Normal <=200 [facility] Comment on above: Performed By: #### T SH, CMP, LIPID #### [facility] [address] [address] [address] Shashi Cohen Cholesterol in HDL [Mass/Vol] 43 mg/dL Normal 40-60 [facility] Comment on above: Performed By: #### T SH, CMP, LIPID #### [facility] [address] [address] [address] Shashi Cohen Cholesterol in LDL [Mass/Vol] 129.2 mg/dL Normal [facility] Comment on above: Performed By: #### T SH, CMP, LIPID #### [facility] [address] [address] [address] Shashi Cohen Cholesterol.total/Ch olesterol in HDL [Mass ratio] 4.3 {ratio} Normal [facility] Comment on above: Performed By: #### T SH, CMP, LIPID #### [facility] [address] [address] [address] Shashi Cohen HDL NORMAL > or = 60 mg/dl - LO W CARDIOVASCULAR RISK <40 mg/dl - HIGH CARDIOVASCULAR RISK Normal [facility] Comment on above: Performed By: #### T SH, CMP, LIPID #### [facility] [address] [address] [address] Shashi Cohen LDL CALC NORMAL SEE BELOW Normal [facility] Comment on above: Result Comment: <100 mg/dl OPTIMAL 100 - 129 mg/dl NEAR OR ABOVE OPTIMAL 130 - 159 mg/dl BORDERLINE HIGH 160 - 189 mg/dl HIGH >190 mg/dl VERY HIGH Performed By: #### T SH, CMP, LIPID #### [facility] [address] [address] [address] Shashi Cohen Triglyceride [Mass/Vol] 69 mg/dL Normal <=150 [facility] Comment on above: Performed By: #### T SH, CMP, LIPID #### [facility] [address] [address] [address] Shashi Cohen VLDL CALC 13.8 mg/dL Normal [facility] Comment on above: Performed By: #### T SH, CMP, LIPID #### [facility] [address] [address] [address] Shashi Cohen PROF 14(COMP METB)on 023 Albumin [Mass/Vol] 3.9 g/dL Normal 3.4-5.0 [facility] Comment on above: Performed By: #### T SH, CMP, LIPID #### [facility] [address] [place] [address] Dr. Shashi Cohen Albumin/Globulin [Mass ratio] 1.1 {ratio} Normal [facility] Comment on above: Performed By: #### T SH, CMP, LIPID #### [facility] [address] [place] [address] Dr. Shashi Cohen ALP [Catalytic activity/Vol] 63 U/L Normal 46-116 [facility] Comment on above: Performed By: #### T SH, CMP, LIPID #### [facility] [address] [place] [address] Dr. Shashi Cohen ALT [Catalytic activity/Vol] 23 U/L Normal 14-59 [facility] Comment on above: Performed By: #### T SH, CMP, LIPID #### [facility] [address] [place] [address] Dr. Shashi Cohen Anion gap [Moles/Vol] 15.6 mmol/L Normal [facility] Comment on above: Performed By: #### T SH, CMP, LIPID #### [facility] [address] [place] [address] Dr. Shashi Cohen AST [Catalytic activity/Vol] 12 U/L Critically low 15-37 [facility] Comment on above: Performed By: #### T SH, CMP, LIPID #### [facility] [address] [place] [address] Dr. Shashi Cohen Bilirubin [Mass/Vol] 0.3 mg/dL Normal 0.2-1.0 [facility] Comment on above: Performed By: #### T SH, CMP, LIPID #### [facility] [address] [place] [address] Dr. Shashi Cohen Calcium [Mass/Vol] 9.1 mg/dL Normal 8.5-10.1 [facility] Comment on above: Performed By: #### T SH, CMP, LIPID #### [facility] [address] [place] [address] Dr. Shashi Cohen Chloride [Moles/Vol] 102 mmol/L Normal 98-107 [facility] Comment on above: Performed By: #### T SH, CMP, LIPID #### [facility] [address] [place] [address] Dr. Shashi Cohen CO2 [Moles/Vol] 25.4 mmol/L Normal 21.0-32.0 [facility] Comment on above: Performed By: #### T SH, CMP, LIPID #### [facility] [address] [place] [address] Dr. Shashi Cohen Creatinine [Mass/Vol] 0.55 mg/dL Normal 0.55-1.02 [facility] Comment on above: Performed By: #### T SH, CMP, LIPID #### [facility] [address] [place] [address] Dr. Shashi Cohen EGFR-AF CITIZ[place] >60 Normal >=60 [facility] Comment on above: Performed By: #### T SH, CMP, LIPID #### [facility] [address] [place] [address] Dr. Shashi Cohen EGFR-NON AF CITIZEN OF [place] >60 Normal >=60 [facility] Comment on above: Performed By: #### T SH, CMP, LIPID #### [facility] [address] [place] [address] Dr. Shashi Cohen Globulin (S) [Mass/Vol] 3.5 g/dL Normal [facility] Comment on above: Performed By: #### T SH, CMP, LIPID #### [facility] [address] [place] [address] Dr. Shashi Cohen Glucose [Mass/Vol] 100 mg/dL Normal 74-106 [facility] Comment on above: Performed By: #### T SH, CMP, LIPID #### [facility] [address] [place] [address] Dr. Shashi Cohen Potassium [Moles/Vol] 4.0 mmol/L Normal 3.5-5.1 [facility] Comment on above: Performed By: #### T ANDREEA CMP, LIPID #### [facility] [address] [address] [address] Shashi Cohen Protein [Mass/Vol] 7.4 g/dL Normal 6.4-8.2 [facility] Comment on above: Performed By: #### T SH, CMP, LIPID #### [facility] [address] [address] [address] Shashi Cohen Sodium [Moles/Vol] 139 mmol/L Normal 136-145 [facility] Comment on above: Performed By: #### T ANDREEA CMP, LIPID #### [facility] [address] [place] [address] Dr. Shashi Cohen Urea nitrogen [Mass/Vol] 14.0 mg/dL Normal 7.0-18.0 [facility] Comment on above: Performed By: #### T ANDREEA CMP, LIPID #### [facility] [address] [place] [address] Dr. Shashi Cohen Urea nitrogen/Creatinine [Mass ratio] 25.5 mg/mg Normal [facility] Comment on above: Performed By: #### T ANDREEA CMP, LIPID #### [facility] [address] [place] [address] Dr. Shashi Cohen TSHon 08-29-2022 TSH 2.445 uIU/mL Normal 0.358-3.[address] [facility] Comment on above: Performed By: #### T SH, CMP, LIPID #### [facility] [address] [place] [address] Dr. Shashi Cohen UA RANDOM W/MICROSCOPICon BACTERIA NONE SEEN Normal NONE SEEN [facility] Comment on above: Performed By: #### U AMIC #### [facility] [address] [place] [address] Dr. Shashi Cohen Bilirubin Ql (U) Negative Normal NEGATIVE [facility] Comment on above: Performed By: #### U AMIC #### [facility] [address] [address] [address] Shashi Cohen CAST NONE SEEN Normal NONE SEEN [facility] Comment on above: Performed By: #### U AMIC #### [facility] [address] [address] [address] Shashi Cohen Clarity (U) CLEAR Normal CLEAR [facility] Comment on above: Performed By: #### U AMIC #### [facility] [address] [address] [address] Shashi Cohen Color (U) LT. YELLOW Normal YELLOW [facility] Comment on above: Performed By: #### U AMIC #### [facility] [address] [address] [address] Shashi Cohen Crystals LM Nom (Urine sed) NONE SEEN Normal NONE SEEN [facility] Comment on above: Performed By: #### U AMIC #### [facility] [address] [place] [address] Dr. Shashi Cohen Epithelial cells LM Ql (Urine sed) NONE SEEN Normal NONE SEEN /RARE [facility] Comment on above: Performed By: #### U AMIC #### [facility] [address] [place] [address] Dr. Shashi Cohen Glucose Ql (U) Negative Normal NEGATIVE [facility] Comment on above: Performed By: #### U AMIC #### [facility] [address] [place] [address] Dr. Shashi Cohen Hemoglobin Ql (U) Negative Normal NEGATIVE [facility] Comment on above: Performed By: #### U AMIC #### [facility] [address] [place] [address] Dr. Shashi Cohen Ketones Ql (U) Negative Normal NEGATIVE [facility] Comment on above: Performed By: #### U AMIC #### [facility] [address] [address] [address] Shashi Cohen LEUKOCYTES Negative Normal NEGATIVE [facility] Comment on above: Performed By: #### U AMIC #### [facility] [address] [address] [address] Shashi Cohen MUCOUS NONE SEEN Normal NONE SEEN [facility] Comment on above: Performed By: #### U AMIC #### [facility] [address] [address] [address] Shashi Cohen Nitrite Ql (U) Negative Normal NEGATIVE [facility] Comment on above: Performed By: #### U AMIC #### [facility] [address] [address] [address] Shashi Cohen pH (U) 6.0 [pH] Normal 5-9 [facility] Comment on above: Performed By: #### U AMIC #### [facility] [address] [address] [address] Shashi Cohen RBC 0-2 Normal 0-2 [facility] Comment on above: Performed By: #### U AMIC #### [facility] [address] [address] [address] Shashi Cohen SPEC GRAVITY <=1.005 Abnormal 1.005-<=1.025 [facility] Comment on above: Performed By: #### U AMIC #### [facility] [address] [place] [address] Dr. Shashi Cohen UA PROTEIN Negative Normal NEGATIVE/ TRACE [facility] Comment on above: Performed By: #### U AMIC #### [facility] [address] [place] [address] Dr. Shashi Cohen Urobilinogen Qn (U) 0.2 {Stephan'U}/dL Normal 0.2 - 1. 0 [facility] Comment on above: Performed By: #### U AMIC #### [facility] [address] [place] [address] Dr. Shashi Cohen WBC NONE SEEN Normal NONE SEEN [facility] Comment on above: Performed By: #### U AMIC #### [facility] [address] [place] [address] Dr. Shashi Cohen VITAMIN D 25 OHon 08-29-2022 VIT D 25-OH 70.4 ng/mL Normal [facility] Comment on above: Performed By: #### V ITAD ####[facility] [address] [address]Dr. Shashi Cohen VIT D RANGES SEE BELOW Normal [facility] Comment on above: Result Comment: <20 ng/mL Vit D deficient 20 - <30 ng/mL Vit D insufficient 30 - 100 ng/mL Vit D sufficient >100 ng/mL Potential Toxicity Performed By: #### V ITAD ####[facility] [address] [place], [place] [address]Rw. Shashi Cohen [facility] [place] CA Don 08-14-2022 [facility] [place] CAD Patient: TINY MCKENNA Exam Date: 08/14/2022 : 1960 Gender:F Ordering : DR. RODRICK PATTON M.D. Admission #: [id number] Family : KAMILA ANDRADE COIL WRAPPER Order #: [id number] CLICK HERE TO VIEW EXAM RADIOLOGY REPORT [...] kidney cancer at age 61. LOCATION: [facility] BREAST COMPOSITION: Scattered areas fibroglandular density. FINDINGS: [...] Saleem M.D. on 08/14/2022 at 14:26 Normal [facility] PROF CHEM 8 (BAS METB)on Anion gap [Moles/Vol] 10.7 mmol/L Normal [facility] Comment on above: Performed By: #### B MP ####[facility] [address] [place], [place] [address]Dr. Cattosha Cohen Calcium [Mass/Vol] 9.5 mg/dL Normal 8.5-10.1 [facility] Comment on above: Performed By: #### B MP ####[facility] [address] [place], [place] [address]Dr. Shashi Cohen Chloride [Moles/Vol] 102 mmol/L Normal 98-107 [facility] Comment on above: Performed By: #### B MP ####[facility] [address] [place], [place] [address]Dr. Shashi Cohen CO2 [Moles/Vol] 31.0 mmol/L Normal 21.0-32.0 [facility] Comment on above: Performed By: #### B MP ####[facility] [address] [place], [place] [address]Dr. Shashi Cohen Creatinine [Mass/Vol] 0.70 mg/dL Normal 0.55-1.02 [facility] Comment on above: Performed By: #### B MP ####[facility] [address] [place], [place] [address]Dr. Shashi Cohen EGFR-AF [place]IZ[place] >60 Normal >=60 [facility] Comment on above: Performed By: #### B MP ####[facility] [address] [place], [place] [address]Dr. Shashi Cohen EGFR-NON AF CITIZEN OF [place] >60 Normal >=60 [facility] Comment on above: Performed By: #### B MP ####[facility] [address] [place], [place] [address]Dr. Shashi Cohen Glucose [Mass/Vol] 119 mg/dL Critically high 74-106 [facility] Comment on above: Performed By: #### B MP ####[facility] [address] [place], [place] [address]Dr. Shashi Cohen Potassium [Moles/Vol] 4.7 mmol/L Normal 3.5-5.1 [facility] Comment on above: Performed By: #### B MP ####[facility] [address] [address]Dr. Shashi Cohen Sodium [Moles/Vol] 139 mmol/L Normal 136-145 [facility] Comment on above: Performed By: #### B MP ####[facility] [address] [address]Dr. Shashi Cohen Urea nitrogen [Mass/Vol] 19.0 mg/dL Critically high 7.0-18.0 [facility] Comment on above: Performed By: #### B MP ####[facility] [address] [place], [place] [address]Dr. Shashi Cohen Urea nitrogen/Creatinine [Mass ratio] 27.1 mg/mg Normal [facility] Comment on above: Performed By: #### B MP ####[facility] [address] [address]Dr. Shashi Cohen TSH+FREE T4 12-19-2020 Free T4 [Mass/Vol] 1.5 ng/dL Normal 0.8-1.8 [facility] Comment on above: Performed By: #### 5 8984 #### [facility] [address] [place] [address] Import Dispatcher: Rivera Summers MD TSH Qn 0.58 m[IU]/L Normal 0.40-4.50 [facility] Comment on above: Performed By: #### 5 8984 #### [facility] [address] [place] [address] Import Dispatcher: Rivera Summers MD COMPREHENSIVE METABOLIC PANE [facility] 12-01-2020 Albumin [Mass/Vol] 4.3 g/dL Normal 3.6-5.1 [facility] Comment on above: Performed By: #### 7 600, 35430, 46006, 89921 #### [facility] [address] [place] [address] Import Dispatcher: Rivera Summers MD Albumin/Globulin [Mass ratio] 1.9 {ratio} Normal 1.0-2.5 [facility] Comment on above: Performed By: #### 7 600, 14151, 67000, 87552 #### [facility] [address] [address] Import Dispatcher: Rivera Summers MD ALP [Catalytic activity/Vol] 72 U/L Normal 37-153 [facility] Comment on above: Performed By: #### 7 600, 57103, 17214, 44328 #### [facility] [place] [address] Import Dispatcher: Rivera Summers MD ALT [Catalytic activity/Vol] 14 U/L Normal 6-29 [facility] Comment on above: Performed By: #### 7 600, 94112, 25405, 00146 #### [facility] [place] [address] Import Dispatcher: Rivera Summers MD AST [Catalytic activity/Vol] 15 U/L Normal 10-35 [facility] Comment on above: Performed By: #### 7 600, 04112, 83056, 56320 #### [facility] [address] [place] [address] Import Dispatcher: Rivera Summers MD Bilirubin [Mass/Vol] 0.5 mg/dL Normal 0.2-1.2 [facility] Comment on above: Performed By: #### 7 600, 32256, 83478, 05680 #### [facility] [address] [place] [address] Import Dispatcher: Rivera Smumers MD BUN/CREATININE RATIO NOT APPLICABLE Normal 6-22 [facility] Comment on above: Performed By: #### 7 600, 16166, 34058, 48139 #### [facility] [place] [address] Import Dispatcher: Rivera Summers MD Calcium [Mass/Vol] 9.2 mg/dL Normal 8.6-10.4 [facility] Comment on above: Performed By: #### 7 600, 68256, 71718, 01466 #### [facility] [address], [address] [place] [address] Import Dispatcher: Rivera Summers MD Chloride [Moles/Vol] 107 mmol/L Normal 98-110 [facility] Comment on above: Performed By: #### 7 600, 67923, 96939, 33382 #### [facility] [address] [place] [address] Import Dispatcher: Rivera Summers MD CO2 [Moles/Vol] 22 mmol/L Normal 20-32 [facility] Comment on above: Performed By: #### 7 600, 91928, 87204, 77059 #### [facility] [address] [place] [address] Import Dispatcher: Rivera Summers MD Creatinine [Mass/Vol] 0.54 mg/dL Normal 0.50-1.05 [facility] Comment on above: Result Comment: For patients >49 years of age, the reference limit for Creatinine is approximately 13% higher for people identified as -[place]. Performed By: #### 7 600, 75465, 23810, 43735 #### [facility] [address] [place] [address] Import Dispatcher: Rivera Summers MD eGFR NON-AFR. CITIZEN OF [place] 104 mL/min/1.73m2 Normal > OR = 60 [facility] Comment on above: Performed By: #### 7 600, 09677, 14077, 78549 #### [facility] [address] [place] [address] Import Dispatcher: Rivera Summers MD GFR/1.73 sq M.predicted among blacks MDRD (S/P/Bld) [Vol rate/Area] 121 mL/min/{1.73_m2} Normal > OR = 60 [facility] Comment on above: Performed By: #### 7 600, 97662, 74842, 71831 #### [facility] [address] [place] [address] Import Dispatcher: Rivera Summers MD Globulin (S) [Mass/Vol] 2.3 g/dL Normal 1.9-3.7 [facility] Comment on above: Performed By: #### 7 600, 81640, 03905, 83705 #### [facility] [place] [address] Import Dispatcher: Rivera Summers MD Glucose [Mass/Vol] 118 mg/dL High 65-99 [facility] Comment on above: Result Comment: Fasting reference interval For someone without known diabetes, a glucose value between 100 and 125 mg/dL is consistent with prediabetes and should be confirmed with a follow-up test. Performed By: #### 7 600, 09083, 74379, 83681 #### [facility] [address] [place] [address] Import Dispatcher: Rivera Summers MD Potassium [Moles/Vol] 4.1 mmol/L Normal 3.5-5.3 [facility] Comment on above: Performed By: #### 7 600, 43284, 64275, 80766 #### [facility] [place] [address] Import Dispatcher: Rivera Summers MD Protein [Mass/Vol] 6.6 g/dL Normal 6.1-8.1 [facility] Comment on above: Performed By: #### 7 600, 63841, 14974, 89832 #### [facility] [place] [address] Import Dispatcher: Rivera Summers MD Sodium [Moles/Vol] 138 mmol/L Normal 135-146 [facility] Comment on above: Performed By: #### 7 600, 94711, 29803, 96011 #### [facility] [place] [address] Import Dispatcher: Rivera Summers MD Urea nitrogen [Mass/Vol] 17 mg/dL Normal 7-25 [facility] Comment on above: Performed By: #### 7 600, 15678, 38946, 82564 #### [facility] [address] [phone] Import Dispatcher: Rivera Summers MD LIPID PANEL, [facility] 07-0 Cholesterol [Mass/Vol] 199 mg/dL Normal <200 [facility] Comment on above: Order Comment: FASTI NG:YES FASTING: YES Performed By: #### 7 600, 83030, 49736, 70503 #### [facility] [address], [address] [place] [address] Import Dispatcher: Rivera Summers MD Cholesterol in HDL [Mass/Vol] 48 mg/dL Low > OR = 50 [facility] Comment on above: Order Comment: FASTI NG:YES FASTING: YES Performed By: #### 7 600, 65922, 37406, 59338 #### [facility] [address], [address] [place] [address] Import Dispatcher: Rivera Summers MD Cholesterol in LDL [Mass/Vol] 135 mg/dL High [facility] Comment on above: Order Comment: FASTI NG:YES FASTING: YES Result Comment: Refe rence range: <100 Desirable range <100 mg/dL for primary prevention; <70 mg/dL for patients with CHD or diabetic patients with > or = 2 CHD risk factors. LDL-C is now calculated using the Darren-Josefina calculation, which is a validated novel method providing better accuracy than the Friedewald equation in the estimation of LDL-C. Darren CROCKETT et al. ALEJANDRA. 2013;310(19): 4462-9331 (http://education.Sharegate.Quik.io/faq/NMT257) Performed By: #### 7 600, 56369, 88692, 77863 #### [facility] [address], [address] [place] [address] Import Dispatcher: Rivera Summers MD Cholesterol.total/Ch olesterol in HDL [Mass ratio] 4.1 {ratio} Normal <5.0 [facility] Comment on above: Order Comment: FASTI NG:YES FASTING: YES Performed By: #### 7 600, 05887, 99844, 25023 #### [facility] [address], [address] [place] [address] Import Dispatcher: Rivera Summers MD NON HDL CHOLESTEROL 151 mg/dL (calc) High <130 [facility] Comment on above: Order Comment: FASTI NG:YES FASTING: YES Result Comment: For patients with diabetes plus 1 major ASCVD risk factor, treating to a non-HDL-C goal of <100 mg/dL (LDL-C of <70 mg/dL) is considered a therapeutic option. Performed By: #### 7 600, 43223, 04498, 63337 #### [facility] [address], [address] [address] Import Dispatcher: Rivera Summers MD Triglyceride [Mass/Vol] 68 mg/dL Normal <150 [facility] Comment on above: Order Comment: FASTI NG:YES FASTING: YES Performed By: #### 7 600, 33014, 15021, 08320 #### [facility] [address], [address] [place] [address] Import Dispatcher: Rivera Summers MD SARS CoV 2 SEROLOGY [...] providers and patients using the following websites: Protecode/Qwilr/Covid-19/HCP/antibody/fact-sheet2 Protecode/home/Covid-19/Patients/antibody/fact-sheet2 [employer]/home/Covid-19/HCP/antibody/fact-sheet6 Prote[employer]/home/Covid-19/Patients/antibody/fact-sheet6 These tests have been authorized by the FDA under an Emergency Use Authorization (EUA) for use by authorized laboratories. The FDA authorized fact sheets are available on the [facility] website: www.Protecode/Covid19. For additional information please refer to http://education.DNA Games/faq/DES686 (This link is being provided for informational/ educational purposes only.) Performed By: #### 7 600, 48500, 47850, 28353 #### [facility] [address], [address] [place] [phone] Import Dispatcher: Rivera Summers MD SARS-CoV-2 (COVID-19) IgM Ab [Presence] in Serum, Plasma or Blood by Rapid immunoassay Negative Normal NEGATIVE [facility] Comment on above: Result Comment: Reference [...] providers and patients using the following websites: Protecode/Qwilr/Covid-19/HCP/antibody/fact-sheet2 [employer]/Qwilr/Covid-19/Patients/antibody/fact-sheet2 [employer]/Qwilr/Covid-19/HCP/antibody/fact-sheet6 Protecode/home/Covid-[facility]/Patients/antibody/fact-sheet6 These tests have been authorized by the FDA under an Emergency Use Authorization (EUA) for use by authorized laboratories. The FDA authorized fact sheets are available on the [facility] website: www.Protecode/Covid19. For additional information please refer to http://education.DNA Games/faq/XJL269 (This link is being provided for informational/ educational purposes only.) Performed By: #### 7 600, 65423, 85037, 55339 #### [facility] [address], [address] [place] [phone] Import Dispatcher: Rivera Summers MD VITAMIN D,25-OH,TOTAL,IAon 0 12-01-2020 VITAMIN D,25-OH,TOTAL,IA 71 ng/mL Normal 30-100 [facility] Comment on above: Result Comment: Sherrie min D Status 25-OH Vitamin D: Deficiency: <20 ng/mL Insufficiency: 20 - 29 ng/mL Optimal: > or = 30 ng/mL For 25-OH Vitamin D testing on patients on D2-supplementation and patients for whom quantitation of D2 and D3 fractions is required, the QuestAssure[facility](TM) 25-OH VIT D, (D2,D3), LC/MS/MS is recommended: order code 80374 (patients >2yrs). See Note 1 Note 1 For additional information, please refer to http://education.Protecode/faq/QNQ360 (This link is being provided for informational/ educational purposes only.) Performed By: #### 7 600, 93074, 85096, 90447 #### [facility] [address] [facility], [address] [place] [address] Import Dispatcher: Rivera Summers MD Vital Signs Date Time Vital Sign Value Performing Clinician Demetricei tamar 11-19-2023 10:05-0400 Body height 164 cm Rodrick Patton MD Work Phone: [facility] 11-19-2023 10:05-0400 Body mass index (BMI) [Ratio] 23.91 kg/m2 Rodrick Patton MD Work Phone: [facility] 11-19-2023 10:05-0400 Body temperature 97.39 [degF] Rodrick Patton MD Work Phone: [facility] 11-19-2023 10:05-0400 Body weight 64.3 kg Rodrick Patton MD Work Phone: [facility] 11-19-2023 10:05-0400 Diastolic blood pressure 77 mm[Hg] Rodrick Patton MD Work Phone: [facility] 11-19-2023 10:05-0400 Heart rate 66 /min Rodrick Patton MD Work Phone: [facility] 11-19-2023 10:05-0400 Respiratory rate 16 /min Rodrick Patton MD Work Phone: [facility] 11-19-2023 10:05-0400 SaO2% (BldA) [Mass fraction] 99 % Rodrick Patton MD Work Phone: [facility] 11-19-2023 10:05-0400 Systolic blood pressure 140 mm[Hg] Rodrick Patton MD Work Phone: [facility] 05-16-2022 10:13-0500 Body height 164 cm Rodrick Patton MD Work Phone: [facility] 05-16-2022 10:13-0500 Body temperature 97.7 [degF] Rodrick Patton MD Work Phone: [facility] 05-16-2022 10:13-0500 Body weight 63.96 kg Rodrick Patton MD Work Phone: [facility] 05-16-2022 10:13-0500 Diastolic blood pressure 83 mm[Hg] Rodrick Patton MD Work Phone: [facility] 05-16-2022 10:13-0500 Heart rate 71 /min Rodrick Patton MD Work Phone: [facility] 05-16-2022 10:13-0500 Respiratory rate 16 /min Rodrick Patton MD Work Phone: [facility] 05-16-2022 10:13-0500 SaO2% (BldA) [Mass fraction] 98 % Rodrick Patton MD Work Phone: [facility] 05-16-2022 10:13-0500 Systolic blood pressure 118 mm[Hg] Rodrick Patton MD Work Phone: [facility] Encounters Encounter Date Encounter Type Care Provider Facility Start: 01-11-2024 Refill Samson Siegel APRN.CNP Work Phone: [facility] Comment on above: Refill Request Start: 11-19-2023 End: 11-19-2023 ambulatory RODRICK PATTON Facility:[facility] Start: 11-19-2023 End: 11-19-2023 Office outpatient visit 25 minutes Rodrick Patton MD Work Phone: Hematology/Oncology Comment on above: 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) (Primary Dx); Aromatase inhibitor use Start: 09-10-2023 End: 09-10-2023 ambulatory CURTIS MAGALYZackJOVITAJordyn Not Available Start: 07-16-2023 Patient encounter procedure [facility] Provider [facility] Department Start: 07-15-2023 ambulatory Rodrick rivera MD Work Phone: Hematology/Oncology Comment on above: Dental Work Start: 07-15-2023 Telephone encounter Kostas Sheppard Hematology/Oncology Comment on above: Medical Certification Specialist Start: 05-15-2023 End: 05-15-2023 ambulatory RODRICK PATTON Facility:[facility] Start: 11-29-2022 Refill Samson Siegel APRN.CNP Work Phone: Laboratory Medicine Comment on above: Refill Request Start: 09-06-2022 Encounter for genera l adult medical examination without abnormal findings KAMILA COCHRANA RAYMOND [facility] Start: 08-29-2022 End: 08-30-2022 Encounter for general adult medical examination without abnormal findings COIL WRAPPER CURTIS RAYMOND Facility:[facility] Start: 08-29-2022 End: 08-30-2022 ambulatory KAMILA ACEVEDO MAGALYZackMAX Facility:[facility] Start: 08-14-2022 End: 08-15-2022 ambulatory RODRICK PATTON Facility:[facility] Start: 05-23-2022 End: 05-23-2022 ambulatory KAMILA ACEVEDO MAGALYZackMAX Facility:[facility] Start: 05-16-2022 End: 05-16-2022 ambulatory Rodrick Patton MD Work Phone: Hematology/Oncology Comment on above: 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) (Primary Dx) Start: 05-16-2022 End: 05-16-2022 Patient encounter procedure Rodrick Patton MD Work Phone: [facility] Start: 05-13-2022 Telephone encounter Rodrick rodríguez MD Work Phone: Hematology/Oncology Comment on above: Lab Orders Start: 04-29-2022 Telephone encounter Debra Lee [facility] Work Phone: Hematology/Oncology Comment on above: Medication Problem ( Delia requesting auth be with drawn for Prolia) Start: 04-09-2022 ambulatory KAMILA ANDRADE [facility] ity:[facility] Start: 01-22-2022 End: 01-23-2022 ambulatory KAMILA ANDRADE Facility:[facility] Start: 12-25-2021 End: 12-26-[address] RANJANA ZHANG Facility:[facility] Start: 11-20-2021 End: 05-21-2022 ambulatory KAMILA ANDRADE Facility:[facility] Plan of Treatment Date Care Activity Detail Author Start: 05-16-2025 DIABETES SCREEN DIABETES SCREEN [facility] Start: 05-16-2025 Diabetes Screening Diabetes Screenin g [facility] Start: 11-22-2024 DIABETES SCREEN DIABETES SCREEN [facility] Start: 05-20-2024 End: 08-19-2024 Cancer Ag 15-3 [Units/volume] in Serum or Plasma CA 15-3 BLD Lab Routine Invasive ductal carcinoma of left breast (HCC) Aromatase inhibitor use Expected: 05/20/2024 (Approximate), Expires: 08/19/2024 [facility] Comment on above: Expected: 05/20/2024 (Approximate), Expires: 08/19/2024 Start: 05-20-2024 End: 08-19-2024 Cancer Ag 27-29 [Units/volume] in Serum or Plasma CA 27.29 BLOOD Lab Routine Invasive ductal carcinoma of left breast (HCC) Aromatase inhibitor use Expected: 05/20/2024 (Approximate), Expires: 08/19/2024 [facility] Comment on above: Expected: 05/20/2024 (Approximate), Expires: 08/19/2024 Start: 05-20-2024 End: 08-19-2024 CBC W Auto Differential panel - Blood COMPLETE BLOOD COUNT AND DIFFERENTIAL Lab Routine Invasive ductal carcinoma of left breast (HCC) Aromatase inhibitor use Expected: 05/20/2024 (Approximate), Expires: 08/19/2024 [facility] Comment on above: Expected: 05/20/2024 (Approximate), Expires: 08/19/2024 Start: 05-20-2024 End: 08-19-2024 Comprehensive metabolic 2000 panel - Serum or Plasma COMPREHENSIVE METABOLIC PANEL Lab Routine Invasive ductal carcinoma of left breast (HCC) Aromatase inhibitor use Expected: 05/20/2024 (Approximate), Expires: 08/19/2024 [facility] Work Phone: Comment on above: Expected: 05/20/2024 (Approximate), Expires: 08/19/2024 Start: 05-12-2024 End: 05-12-2024 Follow-up encounter 05/12/2024 10:00 AM EST Visit (SP) Office Hematology/Oncology [address] [place] [address] Rodrick Patton MD [address] [place] [address] 6 month follow up Hematology/Oncology Comment on above: 6 month follow up Start: 02-01-2024 Influenza vaccination Influenza Vacc ine (#1) [facility] Start: 12-07-2023 Screening for malign ant neoplasm of colon [facility] Start: 06-02-2023 Behavioral Health Screening Behavioral Health Screening [facility] Start: 06-02-2023 Depression Assessment Depression Ass essment [facility] Start: 04-21-2023 Shingrix Vaccine (2 of 2) Shingrix Vaccine (2 of 2) [facility] Start: 11-14-2022 End: 05-16-2023 CBC W Auto Differential panel - Blood CBC + DIFF Lab Routine Invasive ductal carcinoma of left breast (HCC) Expected: 11/14/2022 (Approximate), Expires: 05/16/2023 [facility] Work Phone: Comment on above: Expected: 11/14/2022 (Approximate), Expires: 05/16/2023 Start: 11-14-2022 End: 05-16-2023 Comprehensive metabolic 2000 panel - Serum or Plasma COMP METABOLIC PANEL Lab Routine Invasive ductal carcinoma of left breast (HCC) Expected: 11/14/2022 (Approximate), Expires: 05/16/2023 [facility] Work Phone: Comment on above: Expected: 11/14/2022 (Approximate), Expires: 05/16/2023 Start: 11-14-2022 End: 06-15-2023 Diagnostic mammography computer-aided detcj bi DION DIAGNOSTIC BILAT Radiology Routine Invasive ductal carcinoma of left breast (HCC) Expected: 11/14/2022 (Approximate), Expires: 06/15/2023 [facility] Work Phone: Comment on above: Expected: 11/14/2022 (Approximate), Expires: 06/15/2023 Start: 11-13-2022 Urine microalbumin profile [facility] Start: 06-02-2022 DEPRESSION ASSESSMENT DEPRESSION ASS ESSMENT [facility] Start: 05-16-2022 End: 05-14-2023 CBC W Auto Differential panel - Blood CBC + DIFF Lab Routine Invasive ductal carcinoma of left breast (HCC) Expected: 05/16/2022 (Approximate), Expires: 05/14/2023 [facility] Work Phone: Comment on above: Expected: 05/16/2022 (Approximate), Expires: 05/14/2023 Start: 05-16-2022 End: 05-14-2023 Comprehensive metabolic 2000 panel - Serum or Plasma COMP METABOLIC PANEL Lab Routine Invasive ductal carcinoma of left breast (HCC) Expected: 05/16/2022 (Approximate), Expires: 05/14/2023 [facility] Work Phone: Comment on above: Expected: 05/16/2022 (Approximate), Expires: 05/14/2023 Start: 03-17-2022 COVID-19 VACCINE (5 - Booster) COVID-19 VACCINE (5 - Booster) [facility] Start: 01-31-2022 Influenza vaccination INFLUENZA (#1) [facility] Start: 2021 RSV Vaccine (1 - 1-d ose 60+ series) RSV Vaccine (1 - 1-dose 60+ series) [facility] Start: 06-05-2021 COVID-19 VACCINE (4 - Booster) COVID-19 VACCINE (4 - Booster) [facility] Start: 06-02-2021 DEPRESSION ASSESSMENT DEPRESSION ASS ESSMENT [facility] Start: 08-25-2020 Screening for malign ant neoplasm of breast Mammogram Screening [facility] Start: 12-22-2011 SHINGRIX VACCINE (1 of 2) SHINGRIX VACCINE (1 of 2) [facility] Start: 2006 COLOGUARD (FIT-DNA) COLOGUARD (FIT-D NA) [facility] Start: 2006 Colonoscopy COLONOSCOPY [facility] Start: 2006 COLORECTAL CANCER SCREENING COLORECTAL CANCER SCREENING [facility] Start: [address] COLONOGRAPHY [facility] Start: 2006 FECAL OCCULT BLOOD FECAL OCCULT BLOO D [facility] Start: 2006 Lipid panel Lipid Screening [facility] Start: 2006 LIPID SCREEN LIPID SCREEN [facility] Start: 2006 Screening for malign ant neoplasm of colon [facility] Start: 2006 SIGMOIDOSCOPY SIGMOIDOSCOPY [facility] Start: 2001 Mammography MAMMOGRAM [facility] Start: 2001 Screening for malign ant neoplasm of breast Mammogram Screening [facility] Start: 12-22-1991 HPV TESTING HPV TESTING [facility] Start: 12-22-1991 Screening for malign ant neoplasm of cervix HPV Testing [facility] Start: 1982 PAP TESTING PAP TESTING [facility] Start: 1982 Screening for malign ant neoplasm of cervix [facility] Start: 12-22-1979 Anxiety Screening Anxiety Screening [facility] Start: 12-22-1979 Depression Screening Depression Scre ing [facility] Start: 12-22-1979 HEPATITIS C SCREENING HEPATITIS C [facility] Start: 12-22-1979 Hepatitis C screening Hepatitis C [facility] Start: 12-22-1979 HIV SCREENING HIV SCREENING [facility] Start: 12-22-1979 HIV screening HIV Screening [facility] Immunizations Immunization Date Immunization Notes Care Provider Dewayne thompson 03-10-2023 influenza virus vacc ine, unspecified formulation Samson Siegel APRN.CNP Work Phone: [facility] 03-15-2021 influenza, injectabl e, quadrivalent, preservative free Debra Richardson [facility] Work Phone: [facility] 08-24-2020 COVID-19 original vaccine, age 12+ yr, monovalent ([employer] - PURPLE TOP) Debra Richardson [facility] Work Phone: [facility] 08-24-2020 COVID-19 vaccine (UNSPECIFIED) Debra Chorick [facility] Work Phone: [facility] 03-13-2020 influenza, injectabl e, quadrivalent, preservative free Debra [facility] Work Phone: [facility] 04-29-2017 Influenza, injectabl e, Madin Bigelow Canine Kidney, preservative free, quadrivalent Debra [facility] Work Phone: [facility] 04-19-2016 influenza, seasonal, injectable, preservative free Debra [facility] Work Phone: [facility] 11-13-2012 tetanus toxoid, redu cyn diphtheria toxoid, and acellular pertussis vaccine, adsorbed Debra [facility] Work Phone: [facility] 05-18-2012 influenza, seasonal, injectable Debra [facility] Work Phone: [facility] Payers Date Payer Category Payer Unknown [facility] [id number] 2021-Present [phone] [place] [id number] Indemnity [id number] 2021 Unknown [id number] 1960 Unknown [id number] 3 1961 Unknown [id number] 3 1961 Unknown [id number] 3 1961 Unknown [id number] 3 1961 Unknown [id number] 3 1961 Unknown [id number] 3 1961 Unknown [id number] 3 1961 Unknown [id number] 3 1961 Unknown [id number] 59 1958 Self-pay Social History Date Type Detail Facility Start: 09-20-2019 Tobacco smoking stat us AKIS Ex-smoker [facility] History of tobacco use Current smoker [facility] Start: 09-20-2019 Tobacco use and exposure Smoke less tobacco non-user [facility] Start: 11-22-2021 End: 05-15-2023 Alcohol intake Current drinker of alcohol (finding) [facility] Start: 09-20-2019 Alcohol Comment occasional [facility] Start: 1960 Sex Assigned At Not on file [facility] Start: 11-14-2022 End: 05-15-2023 History of Social function [facility] Start: 11-14-2022 End: 05-15-2023 Tobacco use panel [facility] Adult Depression Screening Assessment 0 [facility] Clinical Notes 11-20-2021 to 11-19-2023 Patient InstructionsAbRodrick vasquez MD - 11/19/2023 10:15 AM Heavenly Alvarado MA - 11/19/2023 10:10 AM Heavenly Roche MA - 11/19/2023 10:10 AM EDTPatient Instructions Note Date & Type Note Facility 11-19-2023 Instructions Rodrick Patton MD - 11/19/2023 10:46 AM EDT RTC in 6 months for labs and exam Prolia in December 2023 - patient will call. next DXA in 11/2024 DXA ordered, reschedule to 11/2024 at [facility]. documented in this encounter [facility] 11-19-2023 History of Presen t illness Narrative Images from the original note were not included. NAME: Tiny Mckenna [facility] NO.: [id number] DATE OF SERVICE: November 19, 2023 (skyleranne) Some elements in this clinic note that are critical to medical decision making have been carefully reviewed and included from a prior clinic note dated: May 15, 2023 (Abdi) Referring Provider: Dr. 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 ER positive and AL and HER-2/adalberto were both negative. She completed [...] palpable on exam 11/22/2021. Repeat Dexa in 11/2024 PLAN: RTC in 6 months for labs and exam Prolia in December 2023 - patient will call. (At [facility]) next DXA in 11/2024 DXA ordered, reschedule to 11/2024 at [facility]. HPI: CASE HISTORY: Reverse Chronological Order 09/27/2023 - Mammogram - BiRads 2. 06/05/2020-11/13/2020 - adjuvant Xeloda 1500 mg BID X 14 days every 21 days x 8 cycles; dose reduced to 1000mg BID x 14 days on and 7 days off with cycle 5. 03/08/2020-04/04/2020 - adjuvant radiation Left breast 4005cGy in 15 fractions with surgical cavity boost 1000 cGy in 5 fractions 10/11/2019-12/13/2019 - Neoadjuvant taxotere + cytoxan 4 cycles 09/30/2019 - Bilateral MRI breast: Enhancing mass at the site [...] MRI findings on the right breast. 08/26/2019 - Bilateral diagnostic mammography: [facility]. Right breast with mild architectural distortion which [...] shadowing. Core biopsy was recommended. Updated Visit, November 19, 2023: Returns with Garrett Tumor markers check 11/13/2023 at [facility] were normal All labs normal aside rom lipids and fasting blood sugars. She's doing well otherwise. Brought her mom home with Hospice due to general failure to thrive and dementia. Chaperoned Breast Exam November 19, 2023 (Nico Pina) : Right breast is soft with prior reconstruction, Left breast is also soft with prior reconstruction and also with cancer resection. Valentino exam is negative. Updated Visit, May 15, 2023: Delia returns today with Garrett. She is doing fine with the Anastrozole, other than feeling much more fatigued the past few months. I would advise her to hold the Anastrozole for 2 weeks to see if there is improvement, and if none she can restart it after that. 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 Mammogram in July was negative. Got back from a wonderful trip to [place] and [place]. Updated Visit, May 16, 2022: Returns with Garrett. Survived COVID infection from end of March. Otherwise is doing well. No joint aches or pains from Arimidex. [id number] a few days ago at age 89 so some family stress. Otherwise doing well. Still hasn't been approved for Prolia from January. 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 She is [...] genetics counseling and I will refer her. PATHOLOGIC PROFILE/MOLECULAR DATA: Reviewed on 08/28/2020 OncotypeDX [...] 4 for final margin status) Comment: ER AL and HER 2 ancillary studies are pending and will follow in an addendum 4. Left breast mass, additional margin medial, excision: Benign fibroadipose tissue, no residual malignancy present at new margin CANCER CASE SUMMARY Procedure: lumpectomy Specimen laterality: Left Tumor size: 1.5x 1.5 x 1.2 cm Histologic type of invasive carcinoma: ductal Histologic grade: [place] histologic score: 8 Glandular (acinar)/tubular differentiation: 3 [...] ductal carcinoma provisional grade 2-3. ER 80-90%, AL less than 1%, HER-2/adalberto IHC 0 REVIEW OF SYSTEMS Per HPI and otherwise negative by full review of organ systems. ECOG PERFORMANCE STATUS: 0 PHYSICAL EXAMINATION: Vitals: BP 140/77 Pulse 66 Temp (Src) 97.4 (Temporal) Resp 16 Ht 5' 4.567 (1.64m) Wt 141 lb 12.1 oz (64.3kg) SpO2 99% BMI 23.91 kg/(m^2). Body surface area is 1.71 meters squared. Exam limited to gross visualization where appropriate. Gen.: This is an age-appropriate patient in no acute distress. Head: Appears atraumatic with no visible lesions. Eyes: Pupils equally round and reactive to light, extraocular muscles are intact. Neck: Supple. Respiratory: Appears to be respiring comfortably. Neurologic: Nonfocal to gross visualization. Alert and oriented 3. Psychiatric: No evidence of inappropriate anxiety or depression. Skin: Visible areas of skin without rash, lesions, wounds or petechiae. Chaperoned Breast Exam November 19, 2023 (Nico Pina) : Right breast is soft with prior reconstruction, Left breast is also soft with prior reconstruction and also with cancer resection. Valentino exam is negative. Prior exam for reference: Chaperoned Breast Exam May 15, 2023 (Nico Fry) : Right breast has a vertical scar from bottom to nipple from nipple replacement reconstruction. Left breast has upper outer quadrant scar from past tumor resection with similar reconstruction scars to the R. Valentino exam is negative with scars from L axillary LN dissection, stable. ALLERGIES: ALLERGIES Allergen Reactions Adhesive Tape-Silic* Rash, Itching Codeine Vomiting MEDICATIONS: anastrozole (ARIMIDEX) 1 mg tablet TAKE 1 TABLET ONCE DAILY fexofenadine HCl (FEXOFENADINE ORAL) Take by mouth. Magnesium 250 mg tab Take 250 mg by mouth. calcium carbonate (CALCIUM 500 ORAL) Take 1,000 mg by mouth once daily. hydrOXYzine HCl (ATARAX) 25 mg tablet Take 1 tablet by mouth daily at bedtime. vitamin B complex (B COMPLEX 1 ORAL) Take by mouth. TURMERIC ORAL Take by mouth. BIOTIN ORAL Take by mouth. levothyroxine (SYNTHROID) 75 mcg tablet Take 75 mcg by mouth daily before breakfast. loratadine 10 mg cap Take 10 mg by mouth once daily. famotidine (PEPCID) 20 mg tablet Take 20 mg by mouth twice daily. cholecalciferol (VITAMIN D3) 5,000 unit tab Take 10,000 Units by mouth twice daily. LABORATORY VALUES: WBC (k/uL) Date Value [...] left breast (HCC) (primary encounter diagnosis) Plan: COMPREHENSIVE METABOLIC PANEL, COMPLETE BLOOD COUNT AND DIFFERENTIAL, CA 15-3 BLD, CA 27.29 BLOOD (Z79.811) Aromatase inhibitor use Plan: COMPREHENSIVE METABOLIC PANEL, COMPLETE BLOOD COUNT AND DIFFERENTIAL, CA 15-3 BLD, CA 27.29 BLOOD PAST MEDICAL HISTORY Diagnosis Date Breast cancer (HCC) 08/31/2019 Left, ER+AL-, HER2- GERD (gastroesophageal reflux disease) Hypothyroidism Other osteoporosis without current pathological fracture 01/01/2021 Vitamin D deficiency PAST SURGICAL HISTORY Procedure Laterality Date BREAST BIOPSY Bilateral 08/31/2019 CHOLECYSTECTOMY COLONOSCOPY 2009 Social History Tobacco Use Smoking status: Former Smokeless tobacco: Never Vaping Use Vaping Use: Never used Substance Use Topics Alcohol use: Yes Comment: occasional Drug use: Never FAMILY HISTORY Problem Relation Age of Onset Cancer Mother Breast Fibromyalgia Mother Hypertension Father Heart disease Father Cancer Maternal Grandmother Colon Cancer Paternal Grandmother Breast I spent a total of 30 minutes on the date of the service which included preparing to see the patient, [id number] patient care, completing clinical documentation, obtaining and/or reviewing separately obtained history, performing a medically appropriate examination, counseling and educating the patient/family/caregiver, ordering medications, tests, or procedures, independently interpreting results (not separately reported), communicating results to the patient/family/caregiver, and care coordination (not separately reported). Rodrick Patton MD, CPE Hematology and Oncology Services Provided at: [place], [place] CC: Andreina Jj documented in this encounter [facility] 11-19-2023 Note HNO ID: [id number] Author: RODRICK PATTON MD Service: ? Author Type: Physician Type: Progress Notes Filed: 11/19/2023 19:40 Note Text: [facility]: [facility] [facility] NO[facility] [id number] DATE OF SERVICE: November 19, 2023 (Abdi) Some elements in this clinic note that are critical to medical decision making have been carefully reviewed and included from a prior clinic note dated: May 15, 2023 (Abdi) Referring Provider: Dr. 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 ER positive and AL and HER-2/adalberto were both negative. She completed [...] palpable on exam 11/22/2021. Repeat Dexa in 11/2024 PLAN: RTC in 6 months for labs and exam Prolia in December 2023 - patient will call. (At [facility]) next DXA in 11/2024 DXA ordered, reschedule to 11/2024 at [facility]. HPI: CASE HISTORY: Reverse Chronological Order 09/27/2023 - Mammogram - BiRads 2. 06/05/2020-11/13/2020 - adjuvant Xeloda 1500 mg BID X 14 days every 21 days x 8 cycles; dose reduced to 1000mg BID x 14 days on and 7 days off with cycle 5. 03/08/2020-04/04/2020 - adjuvant radiation Left breast 4005cGy in 15 fractions with surgical cavity boost 1000 cGy in 5 fractions 10/11/2019-12/13/2019 - Neoadjuvant taxotere + cytoxan ?4 cycles 09/30/2019 - Bilateral MRI breast: Enhancing mass at the site [...] MRI findings on the right breast. 08/26/2019 - Bilateral diagnostic mammography: [facility]. Right breast with mild architectural distortion which [...] shadowing. Core biopsy was recommended. Updated Visit, November 19, 2023: Returns with Garrett Tumor markers check 11/13/2023 at [facility] were normal All labs normal aside rom lipids and fasting blood sugars. She's doing well otherwise. Brought her mom home with Hospice due to general failure to thrive and dementia. Chaperoned Breast Exam November 19, 2023 (Nico Pina) : Right breast is soft with prior reconstruction, Left breast is also soft with prior reconstruction and also with cancer resection. Valentino exam is negative. Updated Visit, May 15, 2023: Delia returns today with Garrett. She is doing fine with the Anastrozole, other than feeling much more fatigued the past few months. I would advise her to hold the Anastrozole for 2 weeks to see if there is improvement, and if none she can restart it after that. If this does hospitalist nocturnist physician to be the cause, we will plan [...] and wait until for the procedure. She re (more content not included)... [facility] 11-19-2023 Nurse Note Patient had labs at [facility] they are in Care Everywhere. Heavenly Trejo MA [facility] 11-19-2023 Nurse Note Patient had labs at [facility] they are in Care Everywhere. Heavenly Trejo MA documented in this encounter [facility] 07-16-2023 Miscellaneous Notes Note completed, review and signed. Faxed to Dr Resendiz office. Kostas Falk RN She can proceed from my standpoint as long as you take precautions in wound healing for her jaw which I'm sure you're aware of. Just add that line and should be great - Thanks! Pt sent MyChart with Medical Certification Specialist information: The derrickman helper is Dr Aidan Resendiz, phone is [phone] email is [email or web address] I have another consultation with him on [...] like any changes. documented in this encounter [facility] 05-15-2023 Note HNO ID: [id number] Author: Rodrick Patton MD Service: ? Author Type: Physician Type: Progress Notes Filed: 05/15/2023 8:36 PM Note Text: NAME: Tiny Mckenna CLINIC NO.: [id number] DATE OF SERVICE: May 15, 2023 (Abdi) Some elements in this clinic note that are critical to medical decision making have been carefully reviewed and included from a prior clinic note dated: November 14, 2022 (Abdi) Referring Provider: Dr. 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 ER positive and AL and HER-2/adalberto were both negative. She completed [...] 12/2023 DXA ordered, scheduled for 12/2023 at [facility]. HPI: Case History: 06/05/2020- 11/13/2020: adjuvant Xeloda [...] the right breast. 08/26/2019 bilateral diagnostic mammography: [facility]. Right breast with mild architectural distortion which [...] restart it after that. 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 Mammogram in July was negative. Got back from a wonde (more content not included)... [facility] 11-29-2022 Miscellaneous Notes The following approved medication requests have been transmitted electronically. Requested Prescriptions Signed Prescriptions Disp Refills anastrozole (ARIMIDEX) 1 mg tablet 90 tablet 3 Sig: TAKE 1 TABLET ONCE DAILY Authorizing Provider: SAMSON SIEGEL APRN.KAMILA documented in this encounter [facility] 05-16-2022 Instructions Rodrick Patton MD - 05/16/2022 11:08 AM EST Mammograms in [facility] - in 6 months Please obtain labs same day at [facility]. RTC in 6 months to review mammogram and labs, examine - 30 mins Continue Anastrozole. Prolia when approved - at [facility] and then every 6 months Will order Dexa at next visit. documented in this encounter [facility] 05-16-2022 History of Presen t illness Narrative Images from the original note were not included. [id number] DATE OF SERVICE: May 16, 2022 (anne) Some elements in this clinic note that are critical to medical decision making have been carefully reviewed and included from a prior clinic note dated: November 22, 2021 (Abdi) Referring Provider: Dr. 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 ER positive and AL and HER-2/adalberto were both negative. She completed [...] Repeat Dexa in 11/2022 PLAN: Mammograms in [facility] - in 6 months Please obtain labs same day at [facility]. RTC in 6 months to review mammogram and labs, examine - 30 mins Continue Anastrozole. Prolia when approved - at [facility] and then every 6 months Will order [...] No joint aches or pains from Arimidex. [id number] a few days ago at age 89 so some family stress. Otherwise doing well. Still hasn't been approved for Prolia from January. 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 1. 08/26/2019 bilateral diagnostic mammography: [facility]. - Right breast with mild architectural distortion [...] 4 for final margin status) Comment: ER AL and HER 2 ancillary studies are pending and will follow in an addendum 4. Left breast mass, additional margin medial, excision: Benign fibroadipose tissue, no residual malignancy present at new margin CANCER CASE SUMMARY Procedure: lumpectomy Specimen laterality: Left Tumor size: 1.5x 1.5 x 1.2 cm Histologic type of invasive carcinoma: ductal Histologic grade: Nathen histologic score: 8 Glandular (acinar)/tubular differentiation: 3 [...] ductal carcinoma provisional grade 2-3. ER 80-90%, AL less than 1%, HER-2/adalberto IHC 0 REVIEW [...] left breast (HCC) (primary encounter diagnosis) Plan: [facility] DIAGNOSTIC BILAT, CBC + DIFF, COMP METABOLIC PANEL PAST MEDICAL HISTORY Diagnosis Date Breast cancer (HCC) 08/31/2019 Left, ER+AL-, HER2- GERD (gastroesophageal reflux disease) Hypothyroidism Other [...] which included preparing to see the patient, [id number] patient care, completing clinical documentation, performing a medically appropriate examination, counseling and educating the patient/family/caregiver, ordering medications, tests, or procedures, independently interpreting results (not separately reported) and communicating results to the patient/family/caregiver. Rodrick Patton MD, [place], [place] CC: Andreina Jj documented in this encounter [facility] 05-13-2022 Miscellaneous Notes If needed, place lab orders for 05/16/22. Magdalena Chacon Ma documented in this encounter [facility] 04-29-2022 Miscellaneous Notes Received call from Tiny requesting that authorization be withdrew for Prolia so she may obtain injections at a different sight of care. Patient provided phone number opt 2 Call placed and request submitted by Dav Richardson rPh. Reference # for request: [id number] provided by Jude Baron Call placed back to Tiny to give her the reference number. Dav Richardson rPh documented in this encounter [facility] 01-22-2022 Note PROCEDURE: XR FOOT R T [...] authenticated by: RANJANA ZHANG Date: 2022-01-22 17:10 [facility] 12-26-2021 Note PROCEDURE: XR FOOT R T [...] authenticated by: RANJANA ZHANG Date: 2021-12-26 06:57 [facility] 11-20-2021 Note PROCEDURE: XR FOOT R T [...] by: RANJANA ZHANG Date: 2021-11-20 09:43 [facility] Evaluation note Diagnosis Invasive ductal carcinoma of left breast (HCC)- Primary [facility] Diagnosis Invasive ductal carcinoma of left breast (HCC)- Primary [facility]* Diagnosis Invasive ductal carcinoma of left breast (HCC) documented in this encounter [facility] note* Diagnosis Invasive ductal carcinoma of left breast (HCC)- Primary Aromatase inhibitor use Use of aromatase inhibitors [facility] Invasive ductal carcinoma of left breast (HCC) [facility] Diagnostic Procedure Only (Routine) - Waiting for Response Specialty Diagnoses / Procedures Referred By Contac t Referred To Contact [facility] Diagnoses Invasive ductal carcinoma of left breast (HCC) Procedures DION DIAGNOSTIC BILAT DIAGNOSTIC MAMMOGRAPHY COMPUTER-AIDED DETCJ Rodrick Francis MD [address] [place] [address] [place] [address] [facility] [address] [place] [address] Referral ID Status Reason Start Date Expiration Date Visits Requested Visits Authorized [id number] Waiting for Response Auto-Generat ed Referral 11/14/2022 06/15/2023 1 1 [facility] Summary Purpose Family History No Family History [...] pital DATE CREATED AUTHOR AUTHOR'S ORGANIZ ATION 09/11/2023 [facility] EPIC DATE CREATED AUTHOR AUTHOR'S ORGANIZ ATION 11/20/2023 [facility] Source Comments (unrecognize d section and content) In the event this informatio n is protected by the Federal Confidentiality of Alcohol and Drug Abuse Patient Records regulations: The Federal rules restrict any use of the information to criminally investigate or prosecute any alcohol or drug abuse patient.[facility] the event this information is protected by the Federal Confidentiality of Alcohol and Drug Abuse Patient Records regulations: The Federal rules restrict any use of the information to criminally investigate or prosecute any alcohol or drug abuse patient.[facility] the event this information is protected by the Federal Confidentiality of Alcohol and Drug Abuse Patient Records regulations: The Federal rules restrict any use of the information to criminally investigate or prosecute any alcohol or drug abuse patient.[facility] the event this information is protected by the Federal Confidentiality of Alcohol and Drug Abuse Patient Records regulations: The Federal rules restrict any use of the information to criminally investigate or prosecute any alcohol or drug abuse patient.[facility] the event this information is protected by the Federal Confidentiality of Alcohol and Drug Abuse Patient Records regulations: The Federal rules restrict any use of the information to criminally investigate or prosecute any alcohol or drug abuse patient.[facility]healthIn the event this information is protected by the Federal Confidentiality of Alcohol and Drug Abuse Patient Records regulations: The Federal rules restrict any use of the information to criminally investigate or prosecute any alcohol or drug abuse patient.[facility]healthIn the event this information is protected by the Federal Confidentiality of Alcohol and Drug Abuse Patient Records regulations: The Federal rules restrict any use of the information to criminally investigate or prosecute any alcohol or drug abuse patient.[facility]healthIn the event this information is protected by the Federal Confidentiality of Alcohol and Drug Abuse Patient Records regulations: The Federal rules restrict any use of the information to criminally investigate or prosecute any alcohol or drug abuse patient.[facility] the event this information is protected by the Federal Confidentiality of Alcohol and Drug Abuse Patient Records regulations: The Federal rules restrict any use of the information to criminally investigate or prosecute any alcohol or drug abuse patient.[facility] Reason for Visit (unrecogniz ed section and content) Reason Comments Medication Problem Delia requesting auth be with drawn for Prolia Reason Comments Lab Orders Reason Comments Breast Cancer Specialty Diagnoses / Procedures Referred By Rosalee Referred To Contact [facility] Diagnoses Invasive ductal carcinoma of left breast (HCC) left breast cancer Procedures OFFICE/OUTPATIENT ESTABLISHED MOD MDM 30-39 MIN consult test and treat Rodrick Patton MD [place] [address] [facility] [address] [place] [address] Referral ID Status Reason Start Date Expiration Date Visits Requested Visits Authorized [id number] Closed Financial Clearance Required - OON Payor OON Notification Letter Patient cleared - OON Required Payment Collected 2 08/14/2022 1 1 Reason Comments Refill Request Reason Comments Medical Certification Specialist Reason Comments Breast Cancer 6 month follow up Specialty Diagnoses / Procedures Referred By Rosalee ye Referred To Contact [facility] Diagnoses Malignant neoplasm of unspecified site of left female breast Procedures OFFICE/OUTPATIENT ESTABLISHED MOD MDM 30-39 MIN Rodrick Patton [place] [address] [place] [address] Referral ID Status Reason Start Date Expiration Date V isits Requested Visits Authorized [id number] Closed Financial Clearance Required - OON Payor OON/Self Pay Override 11/03/2023 06/01/2024 1 1 Care Teams (unrecognized sec tion and content) River Captain Relationship Specialty Start Date End Date David Tamez [address] [place] [address] PCP - General Internal Medicine 09/13/19 Rodrick Patton MD [address] [place] [address] Physician Hematology/Oncology 10/07/19 Stephanie Stovall, RN [address] [place] [address] Specialty Surgical Services Tech Hematology/Oncology 10/07/19 Samson Siegel, PARTICIPANT ADMINISTRATOR.COIL WRAPPER [address] [place] [address] Nurse Practitioner Hematology/Oncology 10/07/19 Brad Bond MD [address] [place] [address] Physician Radiation Oncology 01/13/20 River Captain Relationship Specialty Start Date End Date David Tamez [address] [place] [address] PCP - General Internal Medicine 09/13/19 Rodrick Patton MD [address] [place] [address] Physician Hematology/Oncology 10/07/19 Stephanie Stovall, SHNANON [address] [place] [address] Specialty Surgical Services Tech Hematology/Oncology 10/07/19 Samson Siegel, PARTICIPANT ADMINISTRATOR.COIL WRAPPER [address] [place] [address] Nurse Practitioner Hematology/Oncology 10/07/19 Brad Bond MD [address] [place] [address] Physician Radiation Oncology 01/13/20 River Captain Relationship Specialty Start Date End Date David Tamez [address] [place] [address] PCP - General Internal Medicine 09/13/19 Rodrick Patton MD [address] [place] [address] Physician Hematology/Oncology 10/07/19 Stephanie Stovall, SHANNON [address] [place] [address] Specialty Surgical Services Tech Hematology/Oncology 10/07/19 Samson Siegel, PARTICIPANT ADMINISTRATOR.[facility] [address] [place] [address] Nurse Practitioner Hematology/Oncology 10/07/19 Brad Bond MD [address] [place] [address] Physician Radiation Oncology 01/13/20 River Captain Relationship Specialty Start Date End Date David Tamez [address] [place] [address] PCP - General Internal Medicine 09/13/19 Rodrick Patton MD [address] [facility] [place] [address] Physician Hematology/Oncology 10/07/19 Stephanie Stovall, SHANNON [address] [place] [address] Specialty Surgical Services Tech Hematology/Oncology 10/07/19 Samson Siegel, PARTICIPANT ADMINISTRATOR.[facility] [address] [place] [address] Nurse Practitioner Hematology/Oncology 10/07/19 Brad Bond MD [address] [place] [address] Physician Radiation Oncology 01/13/20 River Captain Relationship Specialty Start Date End Date David Tamez [address] [place] [address] PCP - General Internal Medicine 09/13/19 Rodrick Patton MD [address] [facility] [place] [address] Physician Hematology/Oncology 10/07/19 Samson Siegel, PARTICIPANT ADMINISTRATOR.COIL WRAPPER [address] [facility] [place] [address] Nurse Practitioner Hematology/Oncology 10/07/19 Brad Bond MD [address] [facility] [place] [address] Physician Radiation Oncology 01/13/20 River Captain Relationship Specialty Start Date End Date David Tamez [address] [place] [address] PCP - General Internal Medicine 09/13/19 Rodrick Patton MD [address] [facility] [place] [address] Physician Hematology/Oncology 10/07/19 Samson Siegel, PARTICIPANT ADMINISTRATOR.COIL WRAPPER [address] [facility] [place] [address] Nurse Practitioner Hematology/Oncology 10/07/19 Brad Bond MD [address] [facility] [place] [address] Physician Radiation Oncology 01/13/20 River Captain Relationship Specialty Start Date End Date David Tamez [address] [place] [address] PCP - General Internal Medicine 09/13/19 Rodrick Patton MD [address] [facility] [place] [address] Physician Hematology/Oncology 10/07/19 Samson Siegel APRN.COIL WRAPPER [address] [facility] [place] [address] Nurse Practitioner Hematology/Oncology 10/07/19 Brad Bond MD [address] [place] [address] [place] [address] Physician Radiation Oncology 01/13/20 River Captain Relationship Specialty Start Date End Date Chelsey David Aguero [address] [place] [address] PCP - General Internal Medicine 09/13/19 Rodrick Patton MD [address] [place] [address] [place] [address] Physician Hematology/Oncology 10/07/19 Samson Siegel APRN.COIL WRAPPER [address] [place] [address] [place] [address] Nurse Practitioner Hematology/Oncology 10/07/19 Brad Bond MD [address] [place] [address] [place] [address] Physician Radiation Oncology 01/13/20 FOR RECORDS PERTAINING [...] BE BASED ON THE PRIMARY CLINICAL RECORDS. [facility] provides no warranty or guarantee of the accuracy or completeness of information in this document.
== END 2024-01-21 14:35 | disposition home or self-care (01) ==
LOC: LAB 14:34
PROVIDERS: PCP Nurse Practitioner; Visit Provider Nurse Practitioner
DX: R07.81 Pleurodynia (principal); S22.31XA Fracture of one rib, right side, initial encounter for closed fracture; J90 Pleural effusion, not elsewhere classified
CPT/HCPCS: 71101

== ENCOUNTER 2024-01-30 07:36 | Outpatient (RCR) | payer OTHER, SELFPAY ==
[2024-01-12 11:49] LABS: Estimated Average Glucose 126 mg/dL
[2024-01-12 12:29] LABS: Anion Gap 11.1; BUN Creatinine Ratio 30.5; Calcium 9.3 mg/dL (8.5-10.1); Carbon Dioxide 27.6 mmol/L (21.0-32.0); Chloride 102 mmol/L (98-107); Chol HDL Ratio 4.5; Cholesterol 187 mg/dL (<=200); Estimated GFR (African America >60 (>=60); Estimated GFR (Non-African Ame >60 (>=60); Glucose 113 mg/dL (74-106); HDL Cholesterol 42 mg/dL (40-60); LDL Cholesterol Calculated 127.2 mg/dL; Potassium 4.7 mmol/L (3.5-5.1); Sodium 136 mmol/L (136-145); Triglycerides 89 mg/dL (<=150); VLDL CHOLESTEROL 17.8 mg/dL
[2024-01-30 11:10] VITALS: BP 118/76; PULSE 85; TEMP 37.1; O2SAT 96
[2024-01-30] MEDS: DENOSUMAB 60 MG/ML SYRINGE SQ (11:20)
--- NOTE | 2024-01-30 13:11 | PC.NURSE ---
1110: Pt. in for Prolia injection. VSS. Labs verified. Medicated with Prolia as ordered. Pt. tolerates without c/o. No bleeding to site. 1123: D/c'd amb. to home.
== END 2024-01-31 23:59 | disposition home or self-care (01) ==
LOC: INF 07:36
PROVIDERS: PCP Nurse Practitioner; Visit Provider Nurse Practitioner
DX: M81.8 Other osteoporosis without current pathological fracture (principal); E78.2 Mixed hyperlipidemia; R73.03 Prediabetes
CPT/HCPCS: 36415; 80048; 80061; 83036; 96372; J0897

== ENCOUNTER 2024-01-30 11:02 | Outpatient (OUT) | payer OTHER, SELFPAY ==
--- OUTSIDE RECORDS SUMMARY | 2024-01-30 11:09 | XMS_ITS | CCD ---
Author Organization [facility] Care Team Providers Care Curator Herbarium Name Role Phone David Tamez Primary Care Provider Abdi ROSS, Rodrick Unavailable Wilman ORTEGA, Stephanie Unavailable Oren WONGN.WINE MASTER, Samson Unavailable [phone] Varun ROSS, Brad Unavailable RODRICK PATTON Admitting Unavailable DR LALO SALEEM Consulting Unavailable ABHYMANAN, RODRICK Attending Unavailable AICHHOLZ, WINE MASTER CURTIS Primary Care Unavailable HYMANAN RODRICK Consulting Unavailable AICHHOLZ, WINE MASTER CURTIS Attending Unavailable AICHHOLZ, WINE MASTER CURTIS Consulting Unavailable AICHHOLZ, WINE MASTER CURTIS Primary Care Unavailable AICHHOLZ, WINE MASTER CURTIS Admitting Unavailable AICHHOLZ, WINE MASTER CURTIS Attending Unavailable AICHHOLZ, WINE MASTER CURTIS Consulting Unavailable AICHHOLZ, WINE MASTER CURTIS Primary Care Unavailable AICHHOLZ, WINE MASTER CURTIS Admitting Unavailable AICHHOLZ, WINE MASTER CURTIS Primary Care Unavailable DR RANJANA ZHANG V Consulting Unavailable FAWWAD, ESCOBAR H Admitting Unavailable FAWWAD, ESCOBAR H Attending Unavailable FAWWAD, ESCOBAR H Consulting Unavailable DR RANJANA ZHANG V Consulting Unavailable POOL, GAYATRI Admitting Unavailable AICHHOLZ, WINE MASTER CURTIS Primary Care Unavailable POOL, GAYATRI Attending Unavailable POOL, GAYATRI Consulting Unavailable AICHHOLZ, WINE MASTER CURTIS Attending Unavailable AICHHOLZ, WINE MASTER CURTIS Primary Care Unavailable AICHHOLZ, WINE MASTER CURTIS Admitting Unavailable AICHHOLZ, WINE MASTER CURTIS Attending Unavailable AICHHOLZ, WINE MASTER CURTIS Primary Care Unavailable AICHHOLZ, WINE MASTER CURTIS Consulting Unavailable AICHHOLZ, WINE MASTER CURTIS Admitting Unavailable AICHHOLZ, WINE MASTER CURTIS Primary Care Unavailable VICENTE, DR RANJANA Crawford Consulting Unavailable GAYATRI LANZA Admitting Unavailable GAYATRI LANZA Attending Unavailable GAYATRI LANZA Consulting Unavailable David Tamez Primary Care Provider David Tamez Primary Care Provider ABHYANKAR, RODRICK Referring Unavailable ABDI, RODRICK Attending Unavailable DAVID TAMEZ Primary Care Unavailable ABHYANKAR, RODRICK Attending Unavailable DAVID TAMEZ Primary Care Unavailable ABHYANKAR, RODRICK Referring Unavailable DAVID TAMEZ Primary Care Unavailable ABHYANKAR, RODRICK Referring Unavailable AICHHOLZ, CURTIS Attending Unavailable AICHHOLZ, CURTIS Attending Unavailable Allergies Allergy Classification Reported Allergen(s) Allergy Type Date of Onset Reaction(s) Facility Opioid [facility]onists (1 source) Codeine; Translations: [CODEINE] Drug Allergy 08-26-2019 [facility] Repository (9 sources) Codeine Drug Allergy 08-26-2019 Vomiting [facility] (10 sources) Adhesive Tape-Silicones; Translations: [ADHESIVE TAPE-SILICONES] Drug Allergy 09-20-2019 Rash, Itching [facility] (1 source) Adhesive bandage Drug allergy (disorder) 09-14-2019 [facility] Repository (1 source) Codeine Drug Allergy 08-26-2019 [facility] Rep[facility] Medications Current Medications Medication Drug [...] (3 sources) Prophylactic aromatase inhibitors given; Translations: [prison (current) use of aromatase inhibitors] Onset: 11-19-2023 [...] Test Name Value Interpretation Reference Range Facility [facility] 11-19-2023 [facility] Visit (SP) Office (HEMASA) TINY MCKENNA ([id number]) 1960 F Date Time Provider Department 11/19/23 10:15 AM RODRICK PATTON During your visit today, we recorded the following information about you: Temperature Pulse Respiration Blood pressure 97.4 degrees 66/minute 16/minute 140/77 Weight Height 64.3 kg 1.64 m Heavenly Trejo MA 11/19/2023 10:13 AM Signed Patient had labs at [facility] they are in Care Everywhere. LUCRECIA Song Vivek, MD 11/19/2023 7:40 PM Signed NAME: Tiny Mckenna CLINIC NO.: [id number] DATE OF SERVICE: November 19, 2023 (bAdi) Some elements in this clinic note that are critical to medical decision making have been carefully reviewed and included from a prior clinic note dated: May 15, 2023 (Abdi) Referring Provider: Dr. 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 She completed [...] December 2023 - patient will call. (At [facility]) next DXA in 11/2024 DXA ordered, reschedule to 11/2024 at [facility]. HPI: CASE HISTORY: Reverse Chronological Order 09/27/2023 [...] right breast. 08/26/2019 - Bilateral diagnostic mammography: [facility]. Right breast with mild architectural distortion [...] with Garrett Tumor markers check 11/13/2023 at [facility] were normal All labs normal aside rom [...] restart it after that. If this does sock turner to be the cause, we will plan to switch to an alterna (more content not included)... Normal [facility] CNPNon 07-15-2023 CNPN Telephone (HEMASA) TINY MCKENNA ([id number]) 1960 F Date Time Provider Department 07/15/23 KOSTAS FALK During your visit today, we recorded the following information about you: Kostas Falk RN 07/15/2023 3:26 PM Signed Pt sent [email or web address] with 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 information: The cellar pumper is Dr Aidan Resendiz, phone is [phone] email is [email or web address] I have another consultation with him on [...] and should be great - Thanks! Kostas Falk, SHANNON 07/16/2023 9:26 AM Signed Note completed, review and signed. Faxed to Dr Resendiz office. Kostas Falk RN Allergies As of Date: 07/15/2023 Noted Allergy Reaction ADHESIVE TAPE-SILICONES 09/20/2019 2 - Rash 9 - Itching CODEINE 08/26/2019 11 - Vomiting Date Reviewed: 05/15/2023 Reviewed by: Paulina Fry - Fully Assessed Reason for Visit: 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 [Other] Prescriptions as of 07/16/2023 - anastrozole [...] Encounter Status:Closed by KOSTAS FALK on 07/16/23 [facility] CNOVSPon 05-15-2023 [facility] Visit (SP) Office (JAIMEE) TINY MCKENNA ([id number]) 1960 F Date Time Provider Department 05/15/23 10:30 AM RODRICK PATTON During your visit today, we recorded the following information about you: Temperature Pulse Respiration Blood pressure 97.8 degrees 71/minute 18/minute 137/89 Weight Height 68.2 kg 1.64 m Rodrick Patton MD 05/15/2023 8:36 PM Signed NAME: Tiny Mckenna CLINIC NO.: [id number] DATE OF SERVICE: May 15, 2023 (Abdi) Some elements in this clinic note that are critical to medical decision making have been carefully reviewed and included from a prior clinic note dated: November 14, 2022 (Abdi) Referring Provider: Dr. 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 She completed [...] 12/2023 DXA ordered, scheduled for 12/2023 at [facility]. HPI: Case History: 06/05/2020- 11/13/2020: adjuvant Xeloda [...] the right breast. 08/26/2019 bilateral diagnostic mammography: [facility]. Right breast with mild architectural distortion [...] restart it after that. If this does sock turner to be the cause, we will [...] increased s (more content not included)... Normal [facility] 05-15-2023 CNPN Telephone (NCCAP) TINY MCKENNA ([id number]) 1960 F Date Time Provider Department 05/15/23 [facility]TON [facility] During your visit today, we recorded the following information about you: Lamont Christine 05/15/2023 11:29 AM Signed DXA ordered, scheduled for 12/2023 at [facility]. CIPRIANO: Patient just had a DEXA scan this year, November 2022 so she will not be due until 2024 - also insurances typically only cover every 2 years. Is there a reason we are doing earlier? Also, patient would like her labs drawn at [facility] prior to 6 month follow up due [...] [M81.8] Order(s):COMP METABOLIC PANEL [SQCMP] Order #: [id number] FUTURE CBC + DIFF [SQCBCDIF] Order #: [id number] FUTURE CA 15-3 BLD [[id number]] Order #: [id number] FUTURE CA 27.29 BLOOD [[id number]] Order #: [id number] FUTURE VITAMIN D 25 HYDROXY [SQVITD] Order #: [id number] FUTURE Prescriptions as of 05/16/2023 - anastrozole [...] Status:Closed by LAMONT CHRISTINE on 05/16/23 Normal [facility] PAP ACOG PANEL 2: 30 to 65on 09-05-2022 . . Normal [facility] Comment on above: Result Comment: Perf ormed at: WB Performed By: #### [id number] #### [facility] [address] [place] [address] Dr. Shashi Cohen Age Gdln ACOG Testing 30-65 Normal [facility] Comment on above: Performed By: #### 4 [id number] #### [facility] [address] [place] [address] Dr. Shashi Cohen DIAGNOSIS: Comment Normal [facility] Comment on above: Result Comment: NEGA TIVE FOR INTRAEPITHELIAL LESION OR MALIGNANCY. Performed at: WB Performed By: #### 4 [id number] #### [facility] [address] [address] [address] Shashi Cohen HPV Aptima Negative Normal Negative [facility] Comment on above: Result Comment: This nucleic acid amplification test detects fourteen high-risk HPV types (16,18,31,33,35,39,45,51,52,56,58,59,66,68) without differentiation. Performed at: =G Performed By: #### 4 [id number] #### [facility] [address] [address] [address] Shashi Cohen HPV Genotype Reflex Comment Normal [facility] Comment on above: Result Comment: Crit eria not met, HPV Genotype not performed. Performed at: WB Performed By: #### 4 [id number] #### [facility] [address] [place] [address] Dr. Shashi Cohen Methodology: Comment Normal [facility] Comment on above: Result Comment: This liquid based ThinPrep(R) pap test was screened with the use of an image guided system. Performed at: WB Performed By: #### 4 [id number] #### [facility] [address] [place] [address] Dr. Shashi Cohen Note: Comment Normal [facility] Comment on above: Result Comment: The Pap smear is a screening test designed to aid in the detection of premalignant and malignant conditions of the uterine cervix. It is not a diagnostic procedure and should not be used as the sole means of detecting cervical cancer. Both false-positive and false-negative reports do occur. . Performed at: WB Performed By: #### [id number] #### [facility] [address] [place] [address] Dr. Shashi Cohen Performed by: Comment Normal [facility] Comment on above: Result Comment: Sujata Shahid Maintenance Porter (ASCP) Performed at: WB Performed By: #### 4 [id number] #### [facility] [address] [place] [address] Dr. Shashi Cohen Specimen adequacy: Comment Normal [facility] Comment on above: Result Comment: Sati sfactory for evaluation. Performed at: WB Performed By: #### 4 [id number] #### [facility] [address] [place] [address] Dr. Shashi Cohen CBC AUTO DIFFon 08-29-2022 BASO # 0.0 103/ul Normal 0.0-0.1 [facility] Comment on above: Performed By: #### C BC #### [facility] [address] [place] [address] Dr. Shashi Cohen Basophils/100 WBC (Bld) 0.7 % Normal 0.2-2.0 [facility] Comment on above: Performed By: #### C BC #### [facility] [address] [place] [address] Dr. Shashi Cohen EO # 0.1 103/ul Normal 0.0-0.7 [facility] Comment on above: Performed By: #### C BC #### [facility] [address] [place] [address] Dr. Shashi Cohen Eosinophils/100 WBC (Bld) 1.4 % Normal 0.9-7.0 [facility] Comment on above: Performed By: #### C BC #### [facility] [address] [address] [address] Shashi Cohen Erythrocyte distribution width (RBC) [Ratio] 13.7 % Normal 11.0-15.0 [facility] Comment on above: Performed By: #### C BC #### [facility] [address] [place] [address] Dr. Shashi Cohen Hematocrit (Bld) [Volume fraction] 43.9 % Normal 36.0-48.0 [facility] Comment on above: Performed By: #### C BC #### [facility] [address] [place] [address] Dr. Shashi Cohen Hemoglobin (Bld) [Mass/Vol] 14.1 g/dL Normal 12.0-16.0 [facility] Comment on above: Performed By: #### C BC #### [facility] [address] [place] [address] Dr. Shashi Cohen IG # 0.02 10e3/ul Normal 0.00-0.03 [facility] Comment on above: Performed By: #### C BC #### [facility] [address] [place] [address] Dr. Shashi Cohne IG % 0.4 % Normal 0.0-0.5 [facility] Comment on above: Performed By: #### C BC #### [facility] [address] [place] [address] Dr. Shashi Cohen LYMPH # 1.9 103/ul Normal 1.2-3.8 [facility] Comment on above: Performed By: #### C BC #### [facility] [address] [place] [address] Dr. Shashi Cohen Lymphocytes/100 WBC (Bld) 33.2 % Normal 20.5-60.0 [facility] Comment on above: Performed By: #### C BC #### [facility] [address] [place] [address] Dr. Shsahi Cohen MANUAL DIFF REQ NO Normal [facility] Comment on above: Performed By: #### C BC #### [facility] [address] [place] [address] Dr. Shashi Cohen MCH (RBC) [Entitic mass] 28.7 pg Normal 26.7-34.0 [facility] Comment on above: Performed By: #### C BC #### [facility] [address] [place] [address] Dr. Shashi Cohen MCHC (RBC) [Mass/Vol] 32.1 g/dL Normal 29.9-35.2 [facility] Comment on above: Performed By: #### C BC #### [facility] [address] [place] [address] Dr. Shashi Cohen MCV (RBC) [Entitic vol] 89.2 fL Normal 81.0-99.0 [facility] Comment on above: Performed By: #### C BC #### [facility] [address] [place] [address] Dr. Shashi Cohen MONO # 0.5 103/ul Normal 0.3-0.8 [facility] Comment on above: Performed By: #### C BC #### [facility] [address] [place] [address] Dr. Shashi Cohen Monocytes/100 WBC (Bld) 8.8 % Normal 1.7-12.0 [facility] Comment on above: Performed By: #### C BC #### [facility] [address] [place] [address] Dr. Shashi Cohen NEUT # 3.1 103/ul Normal 1.4-6.5 [facility] Comment on above: Performed By: #### C BC #### [facility] [address] [place] [address] Dr. Shashi Cohen Neutrophils/100 WBC (Bld) 55.5 % Normal 43.0-75.0 [facility] Comment on above: Performed By: #### C BC #### [facility] [address] [place] [address] Dr. Shashi Cohen Platelet mean volume (Bld) [Entitic vol] 9.9 fL Normal 9.5-13.5 [facility] Comment on above: Performed By: #### C BC #### [facility] [address] [address] [address] Shashi Cohen PLT 244 103/ul Normal 150-450 [facility] Comment on above: Performed By: #### C BC #### [facility] [address] [address] [address] Shashi Cohen RBC 4.92 106/ul Normal 4.20-5.40 [facility] Comment on above: Performed By: #### C BC #### [facility] [address] [address] [address] Shashi Cohen WBC 5.6 103/ul Normal 4.0-11.0 [facility] Comment on above: Performed By: #### C BC #### [facility] [address] [address] [address] Shashi Cohen GLYCOHEMOGLOBIN A1Con 2022 ADA RECOMMENDATION SEE BELOW Normal [facility] Comment on above: Result Comment: ADA RECOMMENDED LIMIT 4.0 - 6.0 ADA THERAPEUTIC TARGET < 7.0 ACTION SUGGESTED > 7.0 Performed By: #### A 1C ####[facility] [id number] [address]Dr. Shashi Cohen Glucose [Mass/Vol] 126 mg/dL Normal [facility] Comment on above: Performed By: #### A 1C ####[facility] [id number] [id number][address] Shashi Cohen HbA1c (Bld) [Mass fraction] 6.0 % Normal 4.5-6.2 [facility] Comment on above: Performed By: #### A 1C ####[facility] [id number] [address]Dr. Shashi Cohen LIPID PROFILEon 08-29-2022 CHOL-HDL RATIO NORM SEE BELOW Normal [facility] Comment on above: Result Comment: 3.3 - 4.4 LOW RISK 4.4 - 7.1 AVERAGE RISK 7.1 - 11.0 MODERATE RISK >11.0 HIGH RISK Performed By: #### T SH, CMP, LIPID #### [facility] [address] [address] [address] Shashi Cohen Cholesterol [Mass/Vol] 186 mg/dL Normal <=200 [facility] Comment on above: Performed By: #### T SH, CMP, LIPID #### [facility] [address] [address] [address] Shashi Cohen Cholesterol in HDL [Mass/Vol] 43 mg/dL Normal 40-60 [facility] Comment on above: Performed By: #### T SH, CMP, LIPID #### [facility] [address] [address] [address] Shashi Cohen Cholesterol in LDL [Mass/Vol] 129.2 mg/dL Normal [facility] Comment on above: Performed By: #### T ANRDEEA CMP, LIPID #### [facility] [address] [address] [address] Shashi Cohen Cholesterol.total/Ch olesterol in HDL [Mass ratio] 4.3 {ratio} Normal [facility] Comment on above: Performed By: #### T ANDREEA, CMP, LIPID #### [facility] [address] [address] [address] Shashi Cohen HDL NORMAL > or = 60 mg/dl - LO W CARDIOVASCULAR RISK <40 mg/dl - HIGH CARDIOVASCULAR RISK Normal [facility] Comment on above: Performed By: #### T ANDREEA CMP, LIPID #### [facility] [address] [address] [address] Shashi Cohen LDL CALC NORMAL SEE BELOW Normal [facility] Comment on above: Result Comment: <100 mg/dl OPTIMAL 100 - 129 mg/dl NEAR OR ABOVE OPTIMAL 130 - 159 mg/dl BORDERLINE HIGH 160 - 189 mg/dl HIGH >190 mg/dl VERY HIGH Performed By: #### T SH, CMP, LIPID #### [facility] [address] [address] [address] Shashi Cohen Triglyceride [Mass/Vol] 69 mg/dL Normal <=150 [facility] Comment on above: Performed By: #### T SH, CMP, LIPID #### [facility] [address] [address] [address] Shashi Cohen VLDL CALC 13.8 mg/dL Normal [facility] Comment on above: Performed By: #### T SH, CMP, LIPID #### [facility] [address] [address] [address] Shashi Cohen PROF 14(COMP METB)on 023 Albumin [Mass/Vol] 3.9 g/dL Normal 3.4-5.0 [facility] Comment on above: Performed By: #### T SH, CMP, LIPID #### [facility] [address] [address] [address] Shashi Cohen Albumin/Globulin [Mass ratio] 1.1 {ratio} Normal [facility] Comment on above: Performed By: #### T SH, CMP, LIPID #### [facility] [address] [place] [address] Dr. Shashi Cohen ALP [Catalytic activity/Vol] 63 U/L Normal 46-116 [facility] Comment on above: Performed By: #### T SH, CMP, LIPID #### [facility] [address] [place] [address] Dr. Shashi Cohen ALT [Catalytic activity/Vol] 23 U/L Normal 14-59 [facility] Comment on above: Performed By: #### T SH, CMP, LIPID #### [facility] [address] [place] [address] Dr. Shashi Cohen Anion gap [Moles/Vol] 15.6 mmol/L Normal [facility] Comment on above: Performed By: #### T SH, CMP, LIPID #### [facility] [address] [address] [address] Shashi Cohen AST [Catalytic activity/Vol] 12 U/L Critically low 15-37 [facility] Comment on above: Performed By: #### T SH, CMP, LIPID #### [facility] [address] [place] [address] Dr. Shashi Cohen Bilirubin [Mass/Vol] 0.3 mg/dL Normal 0.2-1.0 [facility] Comment on above: Performed By: #### T SH, CMP, LIPID #### [facility] [address] [place] [address] Dr. Shashi Cohen Calcium [Mass/Vol] 9.1 mg/dL Normal 8.5-10.1 [facility] Comment on above: Performed By: #### T SH, CMP, LIPID #### [facility] [address] [address] [address] Shashi Cohen Chloride [Moles/Vol] 102 mmol/L Normal 98-107 [facility] Comment on above: Performed By: #### T SH, CMP, LIPID #### [facility] [address] [address] [address] Shashi Cohen CO2 [Moles/Vol] 25.4 mmol/L Normal 21.0-32.0 [facility] Comment on above: Performed By: #### T SH, CMP, LIPID #### [facility] [address] [place] [address] Dr. Shashi Cohen Creatinine [Mass/Vol] 0.55 mg/dL Normal 0.55-1.02 [facility] Comment on above: Performed By: #### T SH, CMP, LIPID #### [facility] [address] [place] [address] Dr. Shashi Cohen EGFR-AF MARSHALLESE >60 Normal >=60 [facility] Comment on above: Performed By: #### T SH, CMP, LIPID #### [facility] [address] [place] [address] Dr. Shashi Cohen EGFR-NON AF MARSHALLESE >60 Normal >=60 [facility] Comment on above: Performed By: #### T SH, CMP, LIPID #### [facility] [address] [place] [address] Dr. Shashi Cohen Globulin (S) [Mass/Vol] 3.5 g/dL Normal [facility] Comment on above: Performed By: #### T SH, CMP, LIPID #### [facility] [address] [place] [address] Dr. Shashi Cohen Glucose [Mass/Vol] 100 mg/dL Normal 74-106 [facility] Comment on above: Performed By: #### T SH, CMP, LIPID #### [facility] [address] [place] [address] Dr. Shashi Cohen Potassium [Moles/Vol] 4.0 mmol/L Normal 3.5-5.1 [facility] Comment on above: Performed By: #### T SH, CMP, LIPID #### [facility] [address] [address] [address] Shashi Cohen Protein [Mass/Vol] 7.4 g/dL Normal 6.4-8.2 [facility] Comment on above: Performed By: #### T SH, CMP, LIPID #### [facility] [address] [place] [address] Dr. Shashi Cohen Sodium [Moles/Vol] 139 mmol/L Normal 136-145 [facility] Comment on above: Performed By: #### T SH, CMP, LIPID #### [facility] [address] [place] [address] Dr. Shashi Cohen Urea nitrogen [Mass/Vol] 14.0 mg/dL Normal 7.0-18.0 [facility] Comment on above: Performed By: #### T SH, CMP, LIPID #### [facility] [address] [place] [address] Dr. Shashi Cohen Urea nitrogen/Creatinine [Mass ratio] 25.5 mg/mg Normal [facility] Comment on above: Performed By: #### T SH, CMP, LIPID #### [facility] [address] [place] [address] Dr. Shashi Cohen TSHon 08-29-2022 TSH 2.445 uIU/mL Normal 0.358-3.740 [facility] Comment on above: Performed By: #### T SH, CMP, LIPID #### [facility] [address] [place] [address] Dr. Shashi Cohen UA RANDOM W/MICROSCOPICon BACTERIA NONE SEEN Normal NONE SEEN [facility] Comment on above: Performed By: #### U AMIC #### [facility] [address] [place] [id number] Dr. Shashi Cohen Bilirubin Ql (U) Negative Normal NEGATIVE [facility] Comment on above: Performed By: #### U AMIC #### [facility] [address] [address] [address] Shashi Cohen CAST NONE SEEN Normal NONE SEEN [facility] Comment on above: Performed By: #### U AMIC #### [facility] [address] [address] [address] Shashi Cohen Clarity (U) CLEAR Normal CLEAR [facility] Comment on above: Performed By: #### U AMIC #### [facility] [address] [address] [address] Shashi Cohen Color (U) LT. YELLOW Normal YELLOW [facility] Comment on above: Performed By: #### U AMIC #### [facility] [address] [place] [address] Dr. Shashi Cohen Crystals LM Nom (Urine sed) NONE SEEN Normal NONE SEEN [facility] Comment on above: Performed By: #### U AMIC #### [facility] [address] [place] [address] Dr. Shashi Cohen Epithelial cells LM Ql (Urine sed) NONE SEEN Normal NONE SEEN /RARE [facility] Comment on above: Performed By: #### U AMIC #### [facility] [address] [place] [address] Dr. Shashi Cohen Glucose Ql (U) Negative Normal NEGATIVE [facility] Comment on above: Performed By: #### U AMIC #### [facility] [address] [place] [address] Dr. Shashi Cohen Hemoglobin Ql (U) Negative Normal NEGATIVE [facility] Comment on above: Performed By: #### U AMIC #### [facility] [address] [place] [address] Dr. Shashi Cohen Ketones Ql (U) Negative Normal NEGATIVE [facility] Comment on above: Performed By: #### U AMIC #### [facility] [address] [address] [address] Shashi Cohen LEUKOCYTES Negative Normal NEGATIVE [facility] Comment on above: Performed By: #### U AMIC #### [facility] [address] [place] [address] Dr. Shashi Cohen MUCOUS NONE SEEN Normal NONE SEEN [facility] Comment on above: Performed By: #### U AMIC #### [facility] [address] [address] [address] Shashi Cohen Nitrite Ql (U) Negative Normal NEGATIVE [facility] Comment on above: Performed By: #### U AMIC #### [facility] [address] [address] [address] Shashi Cohen pH (U) 6.0 [pH] Normal 5-9 [facility] Comment on above: Performed By: #### U AMIC #### [facility] [address] [address] [address] Shashi Cohen RBC 0-2 Normal 0-2 [facility] Comment on above: Performed By: #### U AMIC #### [facility] [address] [address] [address] Shashi Cohen SPEC GRAVITY <=1.005 Abnormal 1.005-<=1.025 [facility] Comment on above: Performed By: #### U AMIC #### [facility] [address] [address] [address] Shashi Cohen UA PROTEIN Negative Normal NEGATIVE/ TRACE [facility] Comment on above: Performed By: #### U AMIC #### [facility] [address] [address] [address] Shashi Cohen Urobilinogen Qn (U) 0.2 {Stephan'U}/dL Normal 0.2 - 1. 0 [facility] Comment on above: Performed By: #### U AMIC #### [facility] [address] [address] [address] Shashi Cohen WBC NONE SEEN Normal NONE SEEN [facility] Comment on above: Performed By: #### U AMIC #### [facility] [address] [address] [address] Shashi Cohen VITAMIN D 25 OHon 08-29-2022 VIT D 25-OH 70.4 ng/mL Normal [facility] Comment on above: Performed By: #### V ITAD ####[facility] [address] [place], [place] [address]Zu. Shashi Cohen VIT D RANGES SEE BELOW Normal [facility] Comment on above: Result Comment: <20 ng/mL Vit D deficient 20 - <30 ng/mL Vit D insufficient 30 - 100 ng/mL Vit D sufficient >100 ng/mL Potential Toxicity Performed By: #### V ITAD ####[facility] [address] [place], [place] [address]EsKylah Cohen MG MAMM DIAGNOSTIC 3D SENIA CA Don 08-14-2022 MG MAMM DIAGNOSTIC 3D SENIA CAD Patient: TINY MCKENNA Exam Date: 08/14/2022 : 1960 Gender:F Ordering : DR. RODRICK PATTON M.D. 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 LOCATION: [facility] BREAST COMPOSITION: Scattered areas fibroglandular density. [...] M.D. on 08/14/2022 at 14:26 Normal [facility] PROF CHEM 8 (BAS METB)on Anion gap [Moles/Vol] 10.7 mmol/L Normal [facility] Comment on above: Performed By: #### B MP ####[facility] [address] [place], [place] [address]Dr. Shashi Cohen Calcium [Mass/Vol] 9.5 mg/dL Normal 8.5-10.1 [facility] Comment on above: Performed By: #### B MP ####[facility] [address] [place], [place] [address]Dr. Shashi Cohen Chloride [Moles/Vol] 102 mmol/L Normal 98-107 [facility] Comment on above: Performed By: #### B MP ####[facility] [address] [place], [place] [address]Dr. Shashi Cohen CO2 [Moles/Vol] 31.0 mmol/L Normal 21.0-32.0 [facility] Comment on above: Performed By: #### B MP ####[facility] [address] [place], [place] [address]Dr. Shashi Cohen Creatinine [Mass/Vol] 0.70 mg/dL Normal 0.55-1.02 [facility] Comment on above: Performed By: #### B MP ####[facility] [address] [place], [place] [address]Dr. Shashi Cohen EGFR-AF MARSHALLESE >60 Normal >=60 [facility] Comment on above: Performed By: #### B MP ####[facility] [address] [place], [place] [address]Dr. Shashi Cohen EGFR-NON AF MARSHALLESE >60 Normal >=60 [facility] Comment on above: Performed By: #### B MP ####[facility] [address] [place], [place] [address]Dr. Shashi Cohen Glucose [Mass/Vol] 119 mg/dL Critically high 74-106 [facility] Comment on above: Performed By: #### B MP ####[facility] [address] [place], [place] [address]Dr. Shashi Cohen Potassium [Moles/Vol] 4.7 mmol/L Normal 3.5-5.1 [facility] Comment on above: Performed By: #### B MP ####[facility] [address] [address]Dr. Shashi Cohen Sodium [Moles/Vol] 139 mmol/L Normal 136-145 [facility] Comment on above: Performed By: #### B MP ####[facility] [address] [id number]. Shashi Cohen Urea nitrogen [Mass/Vol] 19.0 mg/dL Critically high 7.0-18.0 [facility] Comment on above: Performed By: #### B MP ####[facility] [address] [address]Dr. Shashi Cohen Urea nitrogen/Creatinine [Mass ratio] 27.1 mg/mg Normal [facility] Comment on above: Performed By: #### B MP ####[facility] [address] [id number]. Shashi Cohen TSH+FREE T4 12-19-2020 Free T4 [Mass/Vol] 1.5 ng/dL Normal 0.8-1.8 [facility] Comment on above: Performed By: #### 5 8984 #### [facility] [address] [address] Campground Caretaker: Rivera Summers MD TSH Qn 0.58 m[IU]/L Normal 0.40-4.50 [facility] Comment on above: Performed By: #### 5 8984 #### [facility] [address] [place] [address] Campground Caretaker: Rivera Summers MD COMPREHENSIVE METABOLIC PANE [facility] 12-01-2020 Albumin [Mass/Vol] 4.3 g/dL Normal 3.6-5.1 [facility] Comment on above: Performed By: #### 7 600, 56755, 16236, 44561 #### [facility] [address] [place] [address] Campground Caretaker: Rivera Summers MD Albumin/Globulin [Mass ratio] 1.9 {ratio} Normal 1.0-2.5 [facility] Comment on above: Performed By: #### 7 600, 23603, 35185, 95246 #### [facility] of [address] [address] Campground Caretaker: Rivera Summers MD ALP [Catalytic activity/Vol] 72 U/L Normal 37-153 [facility] Comment on above: Performed By: #### 7 600, 58287, 42727, 94016 #### [facility] of [address] [place] [address] Campground Caretaker: Rivera Summers MD ALT [Catalytic activity/Vol] 14 U/L Normal 6-29 [facility] Comment on above: Performed By: #### 7 600, 06319, 49672, 88550 #### [facility] of [address] [place] [address] Campground Caretaker: Rivera Summers MD AST [Catalytic activity/Vol] 15 U/L Normal 10-35 [facility] Comment on above: Performed By: #### 7 600, 46880, 93372, 83261 #### [facility] of [address] [address] Campground Caretaker: Rivera Summers MD Bilirubin [Mass/Vol] 0.5 mg/dL Normal 0.2-1.2 [facility] Comment on above: Performed By: #### 7 600, 69012, 03972, 95693 #### [facility] [address] [address] Campground Caretaker: Rivera Summers MD BUN/CREATININE RATIO NOT APPLICABLE Normal 6-22 [facility] Comment on above: Performed By: #### 7 600, 00870, 43910, 83529 #### [facility] of [address] [address] Campground Caretaker: Rivera Summers MD Calcium [Mass/Vol] 9.2 mg/dL Normal 8.6-10.4 [facility] Comment on above: Performed By: #### 7 600, 91182, 52508, 04085 #### [facility] [address], [address] [place] [address] Campground Caretaker: Rivera Summers MD Chloride [Moles/Vol] 107 mmol/L Normal 98-110 [facility] Comment on above: Performed By: #### 7 600, 82783, 85753, 35213 #### [facility] [address], [address] [place] [address] Campground Caretaker: Rivera Summers MD CO2 [Moles/Vol] 22 mmol/L Normal 20-32 [facility] Comment on above: Performed By: #### 7 600, 99419, 63486, 70944 #### [facility] [address] [place] [address] Campground Caretaker: Rivera Summers MD Creatinine [Mass/Vol] 0.54 mg/dL Normal 0.50-1.05 [facility] Comment on above: Result Comment: For patients >49 years of age, the reference limit for Creatinine is approximately 13% higher for people identified as -Indonesian. Performed By: #### 7 600, 13848, 64208, 59434 #### [facility] [address] [place] [address] Campground Caretaker: Rivera Summers MD eGFR NON-AFR. MARSHALLESE 104 mL/min/1.73m2 Normal > OR = 60 [facility] Comment on above: Performed By: #### 7 600, 22842, 48504, 76195 #### [facility] [address] [place] [address] Campground Caretaker: Rivera Summers MD GFR/1.73 sq M.predicted among blacks MDRD (S/P/Bld) [Vol rate/Area] 121 mL/min/{1.73_m2} Normal > OR = 60 [facility] Comment on above: Performed By: #### 7 600, 69359, 22299, 55983 #### [facility] [address] [place] [address] Campground Caretaker: Rivera Summers MD Globulin (S) [Mass/Vol] 2.3 g/dL Normal 1.9-3.7 [facility] Comment on above: Performed By: #### 7 600, 48937, 87358, 56962 #### [facility] [address] [place] [address] Campground Caretaker: Rivera Summers MD Glucose [Mass/Vol] 118 mg/dL High 65-99 [facility] Comment on above: Result Comment: Fasting reference interval For someone without known diabetes, a glucose value between 100 and 125 mg/dL is consistent with prediabetes and should be confirmed with a follow-up test. Performed By: #### 7 600, 07308, 67939, 65285 #### [facility] [address] [place] [address] Campground Caretaker: Rivera Summers MD Potassium [Moles/Vol] 4.1 mmol/L Normal 3.5-5.3 [facility] Comment on above: Performed By: #### 7 600, 50146, 35295, 18488 #### [facility] [address] [place] [address] Campground Caretaker: Rivera Summers MD Protein [Mass/Vol] 6.6 g/dL Normal 6.1-8.1 [facility] Comment on above: Performed By: #### 7 600, 05282, 73962, 22514 #### [facility] [address] [place] [address] Campground Caretaker: Rivera Summers MD Sodium [Moles/Vol] 138 mmol/L Normal 135-146 [facility] Comment on above: Performed By: #### 7 600, 48140, 32778, 26483 #### [facility] [address] [place] [address] Campground Caretaker: Rivera Summers MD Urea nitrogen [Mass/Vol] 17 mg/dL Normal 7-25 [facility] Comment on above: Performed By: #### 7 600, 28148, 89393, 92311 #### [facility] of [address] [place], [place] [address] Campground Caretaker: Rivera Summers MD LIPID PANEL, [facility] 070 Cholesterol [Mass/Vol] 199 mg/dL Normal <200 [facility] Comment on above: Order Comment: FASTI NG:YES FASTING: YES Performed By: #### 7 600, 04230, 64839, 30986 #### [facility] [address], [address] [place] [address] Campground Caretaker: Rivera Summers MD Cholesterol in HDL [Mass/Vol] 48 mg/dL Low > OR = 50 [facility] Comment on above: Order Comment: FASTI NG:YES FASTING: YES Performed By: #### 7 600, 82987, 36015, 77355 #### [facility] of [address], [address] [place] [address] Campground Caretaker: Rivera Summers MD Cholesterol in LDL [Mass/Vol] [...] LDL-C. Darren CROCKETT et al. ALEJANDRA. 2013;310(19): 1114-2349 (http://education.Klip.in.[employer]/faq/SSY650) Performed By: #### 7 600, 66492, 65197, 89907 #### [facility] of [address], [address] [place], [place] [address] Campground Caretaker: Rivera Summers MD Cholesterol.total/Ch olesterol in HDL [Mass ratio] 4.1 {ratio} Normal <5.0 [facility] Comment on above: Order Comment: FASTI NG:YES FASTING: YES Performed By: #### 7 600, 86159, 64166, 75507 #### [facility] [address], [address] [address] Campground Caretaker: Rivera Summers MD NON HDL CHOLESTEROL 151 mg/dL (calc) High <130 [facility] Comment on above: Order Comment: FASTI NG:YES FASTING: YES Result Comment: For patients with diabetes plus 1 major ASCVD risk factor, treating to a non-HDL-C goal of <100 mg/dL (LDL-C of <70 mg/dL) is considered a therapeutic option. Performed By: #### 7 600, 49824, 59315, 87873 #### [facility] [address] [place] [address], [address] [address] Campground Caretaker: Rivera Summers MD Triglyceride [Mass/Vol] 68 mg/dL Normal <150 [facility] Comment on above: Order Comment: FASTI NG:YES FASTING: YES Performed By: #### 7 600, 05442, 50147, 29266 #### [facility] [address], [address] [place] [address] Campground Caretaker: Rivera Summers MD SARS CoV 2 SEROLOGY [...] providers and patients using the following websites: [facility]/Covid-19/HCP/antibody/fact-sheet2 [facility]/Covid-19/Patients/antibody/fact-sheet2 [facility]/Covid-19/HCP/antibody/fact-sheet6 [facility]/Covid-19/Patients/antibody/fact-sheet6 These tests have been authorized by the FDA under an Emergency Use Authorization (EUA) for use by authorized laboratories. The FDA authorized fact sheets are available on the [employer] website: www.[employer]/Covid19. For additional information please refer to http://education.Collecta/faq/JGR295 (This link is being provided for informational/ educational purposes only.) Performed By: #### 7 600, 51629, 22528, 21735 #### [facility] [address], [address] [place] [phone] Campground Caretaker: Rivera Summers MD SARS-CoV-2 (COVID-19) IgM Ab [Presence] in Serum, Plasma or Blood by Rapid immunoassay Negative Normal NEGATIVE [facility] Comment on above: Result Comment: Reference [...] providers and patients using the following websites: [facility]/Covid-19/HCP/antibody/fact-sheet2 [facility]/Covid-19/Patients/antibody/fact-sheet2 [facility]/Covid-19/HCP/antibody/fact-sheet6 [facility]/C[facility]/Patients/antibody/fact-sheet6 These tests have been authorized by the FDA under an Emergency Use Authorization (EUA) for use by authorized laboratories. The FDA authorized fact sheets are available on the [employer] website: www.[employer]/Covid19. For additional information please refer to http://education.Collecta/faq/HEW245 (This link is being provided for informational/ educational purposes only.) Performed By: #### 7 600, 42985, 64565, 20959 #### [facility] [address], [address] [place] [phone] Campground Caretaker: Rivera Summers MD VITAMIN D,25-OH,TOTAL,IAon 0 12-01-2020 VITAMIN D,25-OH,TOTAL,IA 71 ng/mL Normal 30-100 [facility] Comment on above: Result Comment: Sherrie min D Status 25-OH Vitamin D: Deficiency: <20 ng/mL Insufficiency: 20 - 29 ng/mL Optimal: > or = 30 ng/mL For 25-OH Vitamin D testing on patients on D2-supplementation and patients for whom quantitation of D2 and D3 fractions is required, the [facility]() 25-OH VIT D, (D2,D3), LC/MS/MS is recommended: order code [id number] (patients >2yrs). See Note 1 Note 1 For additional information, please refer to http://education.Sampa/faq/THQ787 (This link is being provided for informational/ educational purposes only.) Performed By: #### 7 600, 87480, 23626, 11774 #### [facility] [address] [facility], [address] [place] [address] Campground Caretaker: Rivera Summers MD Vital Signs Date Time Vital Sign Value Performing Clinician Harinder boyle 11-19-2023 10:05-0400 Body height 164 cm Rodrick Patton MD Work Phone: [facility] 11-19-2023 10:05-0400 Body mass index (BMI) [Ratio] 23.91 kg/m2 Rodrick Patton MD Work Phone: [facility] 11-19-2023 10:05-0400 Body temperature 97.39 [degF] Rodrick Patton MD Work Phone: [facility] 11-19-2023 10:05-0400 Body weight 64.3 kg Rodrick Patton MD Work Phone: [facility] 11-19-2023 10:05-0400 Diastolic blood pressure 77 mm[Hg] Rodrick Patton MD Work Phone: [facility] 11-19-2023 10:05-0400 Heart rate 66 /min Rodrick Patton MD Work Phone: [facility] 11-19-2023 10:05-0400 Respiratory rate 16 /min Rodrick Patton MD Work Phone: [facility] 11-19-2023 10:05-0400 SaO2% (BldA) [Mass fraction] 99 % Rodrick Patton MD Work Phone: [facility] 11-19-2023 10:05-0400 Systolic blood pressure 140 mm[Hg] Rodrick Patton MD Work Phone: [facility] 05-16-2022 10:13-0500 Body height 164 cm Rodrick Patton MD Work Phone: [facility] 05-16-2022 10:13-0500 Body temperature 97.7 [degF] Rodrick Patton MD Work Phone: [facility] 05-16-2022 10:13-0500 Body weight 63.96 kg Rodrick Patton MD Work Phone: [facility] 05-16-2022 10:13-0500 Diastolic blood pressure 83 mm[Hg] Rodrick Patton MD Work Phone: [facility] 05-16-2022 10:13-0500 Heart rate 71 /min Rodrick Patton MD Work Phone: [facility] 05-16-2022 10:13-0500 Respiratory rate 16 /min Rodrick Patton MD Work Phone: [facility] 05-16-2022 10:13-0500 SaO2% (BldA) [Mass fraction] 98 % Rodrick Patton MD Work Phone: [facility] 05-16-2022 10:13-0500 Systolic blood pressure 118 mm[Hg] Rodrick Patton MD Work Phone: [facility] Encounters Encounter Date Encounter Type Care Provider Facility Start: 01-20-2024 End: 01-20-2024 ambulatory CURTIS ANDRADE Not Available Start: 01-11-2024 Refill Samson Siegel APRN.CNP Work Phone: [facility] Comment on above: Refill Request Start: 11-19-2023 End: 11-19-2023 ambulatory RODRICK PATTON Facility:[facility] Start: 11-19-2023 End: 11-19-2023 Office outpatient visit 25 minutes Rodrick Patton MD Work Phone: Hematology/Oncology Comment on above: 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) (Primary Dx); Aromatase inhibitor use Start: 09-10-2023 End: 09-10-2023 ambulatory CURTIS MAGALYZackMAX Not Available Start: 07-16-2023 Patient encounter procedure [facility] Provider [facility] Start: 07-15-2023 ambulatory Rodrick rivera MD Work Phone: Hematology/Oncology Comment on above: Dental Work Start: 07-15-2023 Telephone encounter Kostas Sheppard Hematology/Oncology Comment on above: 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 Start: 05-15-2023 End: 05-15-2023 ambulatory RODRICK PATTON Facility:[facility] Start: 11-29-2022 Refill Samson Siegel APRN.CNP Work Phone: Laboratory Medicine Comment on above: Refill Request Start: 09-06-2022 Encounter for genera l adult medical examination without abnormal findings KAMILA ANDRADE [facility] Start: 08-29-2022 End: 08-30-2022 Encounter for general adult medical examination without abnormal findings KAMILA ANDRADE Facility:[facility] Start: 08-29-2022 End: 08-30-2022 ambulatory KAMILA ANDRADE Facility:[facility] Start: 08-14-2022 End: 08-15-2022 ambulatory RODRICK PATTON Facility:[facility] Start: 05-23-2022 End: 05-23-2022 ambulatory KAMILA ANDRADE Facility:[facility] Start: 05-16-2022 End: 05-16-2022 ambulatory Rodrick Patton MD Work Phone: Hematology/Oncology Comment on above: 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) (Primary Dx) Start: 05-16-2022 End: 05-16-2022 Patient encounter procedure Rodrick Patton MD Work Phone: [facility] Start: 05-13-2022 Telephone encounter Rodrick rodríguez MD Work Phone: Hematology/Oncology Comment on above: Lab Orders Start: 04-29-2022 Telephone encounter Debra Lee [facility] Work Phone: Hematology/Oncology Comment on above: Medication Problem ( Delia requesting auth be with drawn for Prolia) Start: 04-09-2022 ambulatory KAMILA ANDRADE Facil ity:[facility] Start: 01-22-2022 End: 01-23-2022 ambulatory KAMILA ANDRADE Facility:[facility] Start: 12-25-2021 End: 12-26-[address] RANJANA ZHANG Facility:[facility] Start: 11-20-2021 End: 05-21-2022 ambulatory KAMILA ANDRADE Facility:[facility] Plan of Treatment Date Care Activity Detail Author Start: 05-16-2025 DIABETES SCREEN DIABETES SCREEN [facility] Start: 05-16-2025 [facility] Start: 11-22-2024 DIABETES SCREEN DIABETES SCREEN [facility] Start: 05-20-2024 End: 08-19-2024 Cancer Ag 15-3 [Units/volume] in Serum or Plasma CA 15-3 BLD Lab Routine Invasive ductal carcinoma of left breast (HCC) Aromatase inhibitor use Expected: 05/20/2024 (Approximate), Expires: 08/19/2024 [facility] Comment on above: Expected: 05/20/2024 (Approximate), Expires: 08/19/2024 Start: 05-20-2024 End: 08-19-2024 Cancer Ag 27-29 [Units/volume] in Serum or Plasma CA 27.29 BLOOD Lab Routine Invasive ductal carcinoma of left breast (HCC) Aromatase inhibitor use Expected: 05/20/2024 (Approximate), Expires: 08/19/2024 [facility] Comment on above: Expected: 05/20/2024 (Approximate), Expires: 08/19/2024 Start: 05-20-2024 End: 08-19-2024 CBC W Auto Differential panel - Blood COMPLETE BLOOD COUNT AND DIFFERENTIAL Lab Routine Invasive ductal carcinoma of left breast (HCC) Aromatase inhibitor use Expected: 05/20/2024 (Approximate), Expires: 08/19/2024 [facility] Comment on above: Expected: 05/20/2024 (Approximate), Expires: 08/19/2024 Start: 05-20-2024 End: 08-19-2024 Comprehensive metabolic 2000 panel - Serum or Plasma COMPREHENSIVE METABOLIC PANEL Lab Routine Invasive ductal carcinoma of left breast (HCC) Aromatase inhibitor use Expected: 05/20/2024 (Approximate), Expires: 08/19/2024 [facility] Work Phone: Comment on above: Expected: 05/20/2024 (Approximate), Expires: 08/19/2024 Start: 05-12-2024 End: 05-12-2024 Follow-up encounter 05/12/2024 10:00 AM EST Visit (SP) Office Hematology/Oncology [address] [place] [place] [address] Rodrick Patton MD [address] [place] [address] 6 month follow up Hematology/Oncology Comment on above: 6 month follow up Start: 02-01-2024 Influenza vaccination Influenza Vacc ine (#1) [facility] Start: 12-07-2023 Screening for malign ant neoplasm of colon [facility] Start: 06-02-2023 Behavioral Health Screening Behavioral Health Screening [facility] Start: 06-02-2023 Depression Assessment Depression Ass essment [facility] Start: 04-21-2023 Shingrix Vaccine (2 of 2) Shingrix Vaccine (2 of 2) [facility] Start: 11-14-2022 End: 05-16-2023 CBC W Auto Differential panel - Blood CBC + DIFF Lab Routine Invasive ductal carcinoma of left breast (HCC) Expected: 11/14/2022 (Approximate), Expires: 05/16/2023 [facility] Work Phone: Comment on above: Expected: 11/14/2022 (Approximate), Expires: 05/16/2023 Start: 11-14-2022 End: 05-16-2023 Comprehensive metabolic 2000 panel - Serum or Plasma COMP METABOLIC PANEL Lab Routine Invasive ductal carcinoma of left breast (HCC) Expected: 11/14/2022 (Approximate), Expires: 05/16/2023 [facility] Work Phone: Comment on above: Expected: 11/14/2022 (Approximate), Expires: 05/16/2023 Start: 11-14-2022 End: 06-15-2023 Diagnostic mammography computer-aided detcj bi DION DIAGNOSTIC BILAT Radiology Routine Invasive ductal carcinoma of left breast (HCC) Expected: 11/14/2022 (Approximate), Expires: 06/15/2023 [facility] Work Phone: Comment on above: Expected: 11/14/2022 (Approximate), Expires: 06/15/2023 Start: 11-13-2022 Urine microalbumin profile [facility] Start: 06-02-2022 DEPRESSION ASSESSMENT DEPRESSION ASS ESSMENT [facility] Start: 05-16-2022 End: 05-14-2023 CBC W Auto Differential panel - Blood CBC + DIFF Lab Routine Invasive ductal carcinoma of left breast (HCC) Expected: 05/16/2022 (Approximate), Expires: 05/14/2023 [facility] Work Phone: Comment on above: Expected: 05/16/2022 (Approximate), Expires: 05/14/2023 Start: 05-16-2022 End: 05-14-2023 Comprehensive metabolic 2000 panel - Serum or Plasma COMP METABOLIC PANEL Lab Routine Invasive ductal carcinoma of left breast (HCC) Expected: 05/16/2022 (Approximate), Expires: 05/14/2023 [facility] Work Phone: Comment on above: Expected: 05/16/2022 (Approximate), Expires: 05/14/2023 Start: 03-17-2022 COVID-19 VACCINE (5 - Booster) COVID-19 VACCINE (5 - Booster) [facility] Start: 01-31-2022 Influenza vaccination INFLUENZA (#1) [facility] Start: 2021 RSV Vaccine (1 - 1-d ose 60+ series) RSV Vaccine (1 - 1-dose 60+ series) [facility] Start: 06-05-2021 COVID-19 VACCINE (4 - Booster) COVID-19 VACCINE (4 - Booster) [facility] Start: 06-02-2021 DEPRESSION ASSESSMENT DEPRESSION ASS ESSMENT [facility] Start: 08-25-2020 Screening for malign ant neoplasm of breast Mammogram Screening [facility] Start: 12-22-2011 SHINGRIX VACCINE (1 of 2) SHINGRIX VACCINE (1 of 2) [facility] Start: 2006 COLOGUARD (FIT-DNA) COLOGUARD (FIT-D NA) [facility] Start: 2006 Colonoscopy COLONOSCOPY [facility] Start: 2006 COLORECTAL CANCER SCREENING COLORECTAL CANCER SCREENING [facility] Start: [address] COLONOGRAPHY [facility] Start: 2006 FECAL OCCULT BLOOD FECAL OCCULT BLOO D [facility] Start: 2006 Lipid panel Lipid Screening [facility] Start: 2006 LIPID SCREEN LIPID SCREEN [facility] Start: 2006 Screening for malign ant neoplasm of colon [facility] Start: 2006 SIGMOIDOSCOPY SIGMOIDOSCOPY [facility] Start: 2001 Mammography MAMMOGRAM [facility] Start: 2001 Screening for malign ant neoplasm of breast Mammogram Screening [facility] Start: 12-22-1991 HPV TESTING HPV TESTING [facility] Start: 12-22-1991 Screening for malign ant neoplasm of cervix HPV Testing [facility] Start: 1982 PAP TESTING PAP TESTING [facility] Start: 1982 Screening for malign ant neoplasm of cervix [facility] Start: 12-22-1979 Anxiety Screening Anxiety Screening [facility] Start: 12-22-1979 Depression Screening Depression Scre [facility] Start: 12-22-1979 HEPATITIS C SCREENING HEPATITIS C [facility] Start: 12-22-1979 Hepatitis C screening Hepatitis C [facility] Start: 12-22-1979 HIV SCREENING HIV SCREENING [facility] Start: 12-22-1979 HIV screening HIV Screening [facility] Immunizations Immunization Date Immunization Notes Care Provider Fa cili 03-10-2023 influenza virus vacc ine, unspecified formulation Samson Siegel APRN.CNP Work Phone: [facility] 03-15-2021 influenza, injectabl e, quadrivalent, preservative free Debra Richardson [facility] Work Phone: [facility] 08-24-2020 COVID-19 original vaccine, age 12+ yr, monovalent ([employer] - PURPLE TOP) Debra Richardson [facility] Work Phone: [facility] 08-24-2020 COVID-19 vaccine (UNSPECIFIED) Debra Richardson [facility] Work Phone: [facility] 03-13-2020 influenza, injectabl e, quadrivalent, preservative free [facility] Work Phone: [facility] 04-29-2017 Influenza, injectabl e, [facility] [place] Canine Kidney, preservative free, quadrivalent [facility] Work Phone: [facility] 04-19-2016 influenza, seasonal, injectable, preservative free [facility] Work Phone: [facility] 11-13-2012 tetanus toxoid, redu cyn diphtheria toxoid, and acellular pertussis vaccine, adsorbed Debra [facility] Work Phone: [facility] 05-18-2012 influenza, seasonal, injectable Debra [facility] Work Phone: [facility] Payers Date Payer Category Payer Unknown [facility] [id number] 2021-Present [phone] [address] [place] [address] Indemnity [id number] 2021 Unknown [id number] 1960 Unknown [id number] 3 1961 Unknown [id number] 3 1961 Unknown [id number] 3 1961 Unknown [id number] 3 1961 Unknown [id number] 3 1961 Unknown [id number] 3 1961 Unknown [id number] 3 1961 Unknown [id number] 3 1961 Unknown [id number] 59 1961 Unknown [id number] 59 1959 Self-pay Social History Date Type Detail Facility [facility]: [facility] History of tobacco use Current smoker [facility] Start: 09-20-2019 Tobacco use and exposure Smoke less tobacco non-user [facility] Start: 11-22-2021 End: 05-15-2023 Alcohol intake Current drinker of alcohol (finding) [facility] Start: 09-20-2019 Alcohol [facility] Start: 1960 Sex Assigned At Not on file C [facility] Start: 11-14-2022 End: 05-15-2023 History of Social function [facility] Start: 11-14-2022 End: 05-15-2023 Tobacco use panel [facility] Adult Depression Screening Assessment 0 [facility] Clinical Notes 11-20-2021 to 11-19-2023 Patient InstructionsRodrick Patton MD - 11/19/2023 10:15 AM Heavenly Alvarado MA - 11/19/2023 10:10 AM Heavenly Roche MA - 11/19/2023 10:10 AM EDTPatient Instructions Note Date & Type Note Facility 11-19-2023 Instructions Rodrick Patton MD - 11/19/2023 10:46 AM EDT RTC in 6 months for labs and exam Prolia in December 2023 - patient will call. next DXA in 11/2024 DXA ordered, reschedule to 11/2024 at [facility]. documented in this encounter [facility] 11-19-2023 History of Presen t illness Narrative Images from the original note were not included. NAME: Tiny Mckenna [facility] NO.: [id number] DATE OF SERVICE: November 19, 2023 (Abdi) Some elements in this clinic note that are critical to medical decision making have been carefully reviewed and included from a prior clinic note dated: May 15, 2023 (Abdi) Referring Provider: Dr. 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 She completed [...] December 2023 - patient will call. (At [facility]) next DXA in 11/2024 DXA ordered, reschedule to 11/2024 at [facility]. HPI: CASE HISTORY: Reverse Chronological Order 09/27/2023 [...] right breast. 08/26/2019 - Bilateral diagnostic mammography: [facility]. Right breast with mild architectural distortion [...] with Garrett Tumor markers check 11/13/2023 at [facility] were normal All labs normal aside rom [...] restart it after that. If this does sock turner to be the cause, we will [...] Visit, November 14, 2022: Labs reviewed from [facility] Returns with Garrett Saw her BACKWINDER and had Pap/pelvic and breast exam as of July 2022. Mammogram in July was negative. Got back from a wonderful trip to [place] and [place]. Updated Visit, May 16, 2022: Returns with Garrett. Survived COVID infection from end of March. Otherwise is doing well. No joint aches or pains from Arimidex. Hhbzao-oh-oqy a few days ago at age 89 so some family stress. Otherwise doing well. Still hasn't been approved for Prolia from January. 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 Left breast mass, additional margin medial, excision: Benign fibroadipose tissue, no residual malignancy present at new margin CANCER CASE SUMMARY Procedure: lumpectomy Specimen laterality: Left Tumor size: 1.5x 1.5 x 1.2 cm Histologic type of invasive carcinoma: ductal Histologic grade: Franklin histologic score: 8 Glandular (acinar)/tubular differentiation: 3 [...] ductal carcinoma provisional grade 2-3. ER 80-90%, NH less than 1%, HER-2/adalberto IHC 0 REVIEW [...] Diagnosis Date Breast cancer (HCC) 08/31/2019 Left, ER+NH-, HER2- GERD (gastroesophageal reflux disease) Hypothyroidism Other [...] which included preparing to see the patient, [id number]-[id number] patient care, completing clinical documentation, obtaining and/or reviewing separately obtained history, performing a medically appropriate examination, counseling and educating the patient/family/caregiver, ordering medications, tests, or procedures, independently interpreting results (not separately reported), communicating results to the patient/family/caregiver, and care coordination (not separately reported). Rodrick Patton MD, CPE Hematology and Oncology Services Provided at: [facility] [place], [place] CC: Andreina Jj documented in this encounter [facility] 11-19-2023 Note HNO ID: [id number] Author: RODRICK PATTON MD Service: ? Author Type: Physician Type: Progress Notes Filed: 11/19/2023 19:40 Note Text: NAME: Tiny Mckenna CLIN[facility] NO.: [id number] DATE OF SERVICE: November 19, 2023 (Abdi) Some elements in this clinic note that are critical to medical decision making have been carefully reviewed and included from a prior clinic note dated: May 15, 2023 (Abdi) Referring Provider: Dr. 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 She completed [...] December 2023 - patient will call. (At [facility]) next DXA in 11/2024 DXA ordered, reschedule to 11/2024 at [facility]. HPI: CASE HISTORY: Reverse Chronological Order 09/27/2023 [...] right breast. 08/26/2019 - Bilateral diagnostic mammography: [facility]. Right breast with mild architectural distortion [...] with Garrett Tumor markers check 11/13/2023 at [facility] were normal All labs normal aside rom [...] restart it after that. If this does sock turner to be the cause, we will [...] procedure. She re (more content not included)... [facility] 11-19-2023 Nurse Note Patient had labs at [facility] they are in Care Everywhere. Heavenly Trejo MA [facility] 11-19-2023 Nurse Note Patient had labs at [facility] they are in Care Everywhere. Heavenly Trejo MA documented in this encounter [facility] 07-16-2023 Miscellaneous Notes Note completed, review and signed. Faxed to Dr Resendiz office. Kostas Falk RN She can proceed from my standpoint as long as you take precautions in wound healing for her jaw which I'm sure you're aware of. Just add that line and should be great - Thanks! Pt sent MyChart with 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 information: The cellar pumper is Dr Aidan Resendiz, phone is [phone] email is [email or web address] I have another consultation with him on Friday, 07/18. Thank you, Annette Estuardo 05/15/23 Office Note per Cipriano: She needs [...] like any changes. documented in this encounter [facility] 05-15-2023 Note HNO ID: [id number] Author: Rodrick Patton MD Service: ? Author Type: Physician Type: Progress Notes Filed: 05/15/2023 8:36 PM Note Text: NAME: Tiny Mckenna [facility] NO.: [id number] DATE OF SERVICE: May 15, 2023 (Abdi) Some elements in this clinic note that are critical to medical decision making have been carefully reviewed and included from a prior clinic note dated: November 14, 2022 (Abdi) Referring Provider: Dr. 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 She completed [...] 12/2023 DXA ordered, scheduled for 12/2023 at [facility]. HPI: Case History: 06/05/2020- 11/13/2020: adjuvant Xeloda [...] the right breast. 08/26/2019 bilateral diagnostic mammography: [facility]. Right breast with mild architectural distortion [...] restart it after that. If this does sock turner to be the cause, we will [...] Visit, November 14, 2022: Labs reviewed from [facility] Returns with Garrett Saw her BACKWINDER and had Pap/pelvic and breast exam as of July 2022. Mammogram in July was negative. Got back from a wonde (more content not included)... [facility] 11-29-2022 Miscellaneous Notes The following approved medication requests have been transmitted electronically. Requested Prescriptions Signed Prescriptions Disp Refills anastrozole (ARIMIDEX) 1 mg tablet 90 tablet 3 Sig: TAKE 1 TABLET ONCE DAILY Authorizing Provider: SAMSON SIEGEL APRN.WINE MASTER documented in this encounter [facility] 05-16-2022 Instructions Rodrick Patton MD - 05/16/2022 11:08 AM EST Mammograms in [facility] - in 6 months Please obtain labs same day at [facility]. RTC in 6 months to review mammogram and labs, examine - 30 mins Continue Anastrozole. Prolia when approved - at [facility] and then every 6 months Will order Dexa at next visit. documented in this encounter [facility] 05-16-2022 History of Presen t illness Narrative Images from the original note were not included. NAME: Tiny Mckenna CLINIC NO.: [id number] DATE OF SERVICE: May 16, 2022 (Abdi) Some elements in this clinic note that are critical to medical decision making have been carefully reviewed and included from a prior clinic note dated: November 22, 2021 (Abdi) Referring Provider: Dr. David Tamez Additional Clinicians involved in Tiny Mackay Mckenna's care: Haley Person, Andreina Damico, Suleman Carmona CC: Here for follow up ASSESSMENT: 61 year old woman with Left IDC Breast ER+/NH(-) HER-2 (IHC) 0 ypT1C N0 G3 - [...] ductal carcinoma in situ. ER positive and NH and HER-2/adalberto were both negative. She completed [...] Repeat Dexa in 11/2022 PLAN: Mammograms in [facility] - in 6 months Please obtain labs same day at [facility]. RTC in 6 months to review mammogram and labs, examine - 30 mins Continue Anastrozole. Prolia when approved - at [facility] and then every 6 months Will order [...] No joint aches or pains from Arimidex. Bwaaey-ty-cpj a few days ago at age 89 so some family stress. Otherwise doing well. Still hasn't been approved for Prolia from January. 11/2020 Prior Dexa c/w osteoporosis - really needs Prolia Updated Visit, November 22, 2021: Delia is 60 and returns for follow up of Left IDC Breast ER+/NH(-) HER-2 (IHC) 0 ypT1C N0 G3 - [...] right breast. 1. 08/26/2019 bilateral diagnostic mammography: [facility]. - Right breast with mild architectural [...] 4 for final margin status) Comment: ER NH and HER 2 ancillary studies are pending [...] ductal carcinoma provisional grade 2-3. ER 80-90%, NH less than 1%, HER-2/adalberto IHC 0 REVIEW [...] left breast (HCC) (primary encounter diagnosis) Plan: DION DIAGNOSTIC BILAT, CBC + DIFF, COMP METABOLIC PANEL PAST MEDICAL HISTORY Diagnosis Date Breast cancer (HCC) 08/31/2019 Left, ER+NH-, HER2- GERD (gastroesophageal reflux disease) Hypothyroidism Other [...] which included preparing to see the patient, ejus-ru-sikk patient care, completing clinical documentation, performing a medically appropriate examination, counseling and educating the patient/family/caregiver, ordering medications, tests, or procedures, independently interpreting results (not separately reported) and communicating results to the patient/family/caregiver. Rodrick Patton MD, [place], [place] CC: Andreina Jj documented in this encounter [facility] 05-13-2022 Miscellaneous Notes If needed, place lab orders for 05/16/22. Magdalena Chacon Ma documented in this encounter [facility] 04-29-2022 Miscellaneous Notes Received call from Tiny requesting that authorization be withdrew for Prolia so she may obtain injections at a different sight of care. Patient provided phone number opt 2 Call placed and request submitted by Dav Richardson [facility]. Reference # for request: [id number] provided by Jude Butt placed back to Tiny to give her the reference number. Dav Richardson rPh documented in this encounter [facility] 01-22-2022 Note PROCEDURE: XR FOOT R T [...] authenticated by: RANJANA ZHANG Date: 2022-01-22 17:10 [facility] 12-26-2021 Note PROCEDURE: XR FOOT R [...] authenticated by: RANJANA ZHANG Date: 2021-12-26 06:57 [facility] 11-20-2021 Note PROCEDURE: XR FOOT R [...] by: RANJANA ZHANG Date: 2021-11-20 09:43 [facility] Evaluation note Diagnosis Invasive ductal carcinoma of left breast (HCC)- Primary [facility] Diagnosis Invasive ductal carcinoma of left breast (HCC)- Primary [facility] Diagnosis Invasive ductal carcinoma of left breast (HCC) [facility] Diagnosis Invasive ductal carcinoma of left breast (HCC)- Primary Aromatase inhibitor use Use of aromatase inhibitors documented in this encounter [facility] note* Diagnosis Invasive ductal carcinoma of left breast (HCC) [facility] (n[facility]ative)* Diagnostic Procedure Only (Routine) - Waiting for Response Specialty Diagnoses / Procedures Referred By Contac t Referred To Contact [facility] Diagnoses Invasive ductal carcinoma of left breast (HCC) Procedures DION DIAGNOSTIC BILAT DIAGNOSTIC MAMMOGRAPHY COMPUTER-AIDED DETCJ Rodrick Francis MD [address] [place] [address] [place] [address] [facility] [address] [place] [address] Referral ID Status Reason Start Date Expiration Date Visits Requested Visits Authorized [id number] Waiting for Response Auto-Generat ed Referral 11/14/2022 06/15/2023 1 1 [facility] Summary Purpose Family History No Family History [...] CREATED AUTHOR AUTHOR'S ORGANIZ ATION 09/06/2022 [facility] DATE CREATED AUTHOR AUTHOR'S ORGANIZ ATION 11/20/2023 [facility] DATE CREATED AUTHOR AUTHOR'S ORGANIZ ATION 01/22/2024 [facility] dical Specialists EPIC Source Comments (unrecognize d section and content) In the event this informatio n is protected by the Federal Confidentiality of Alcohol and Drug Abuse Patient Records regulations: The Federal rules restrict any use of the information to criminally investigate or prosecute any alcohol or drug abuse patient.[facility] the event this information is protected by the Federal Confidentiality of Alcohol and Drug Abuse Patient Records regulations: The Federal rules restrict any use of the information to criminally investigate or prosecute any alcohol or drug abuse patient.[facility] the event this information is protected by the Federal Confidentiality of Alcohol and Drug Abuse Patient Records regulations: The Federal rules restrict any use of the information to criminally investigate or prosecute any alcohol or drug abuse patient.[facility] the event this information is protected by the Federal Confidentiality of Alcohol and Drug Abuse Patient Records regulations: The Federal rules restrict any use of the information to criminally investigate or prosecute any alcohol or drug abuse patient.[facility] the event this information is protected by the Federal Confidentiality of Alcohol and Drug Abuse Patient Records regulations: The Federal rules restrict any use of the information to criminally investigate or prosecute any alcohol or drug abuse patient.[facility] the event this information is protected by the Federal Confidentiality of Alcohol and Drug Abuse Patient Records regulations: The Federal rules restrict any use of the information to criminally investigate or prosecute any alcohol or drug abuse patient.[facility] the event this information is protected by the Federal Confidentiality of Alcohol and Drug Abuse Patient Records regulations: The Federal rules restrict any use of the information to criminally investigate or prosecute any alcohol or drug abuse patient.[facility] the event this information is protected by the Federal Confidentiality of Alcohol and Drug Abuse Patient Records regulations: The Federal rules restrict any use of the information to criminally investigate or prosecute any alcohol or drug abuse patient.[facility] the event this information is protected by the Federal Confidentiality of Alcohol and Drug Abuse Patient Records regulations: The Federal rules restrict any use of the information to criminally investigate or prosecute any alcohol or drug abuse patient.[facility] Reason for Visit (unrecogniz ed section and content) Reason Comments Medication Problem Delia requesting auth be with drawn for Prolia Reason Comments Lab Orders Reason Comments Breast Cancer Specialty Diagnoses / Procedures Referred By Rosalee Referred To Contact [facility] Diagnoses Invasive ductal carcinoma of left breast (HCC) left breast cancer Procedures OFFICE/OUTPATIENT ESTABLISHED MOD MDM 30-39 MIN consult test and treat Rodrick Patton MD [facility] [place] [place] [address] [facility] [place] [address] [place] [address] Referral ID Status Reason Start Date Expiration Date Visits Requested Visits Authorized [id number] Closed Financial Clearance Required - OON Payor OON Notification Letter Patient cleared - OON Required Payment Collected 2 08/14/2022 1 1 Reason Comments Refill Request Reason Comments 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 Reason Comments Breast Cancer 6 month follow up Specialty Diagnoses / Procedures Referred By Rosalee Referred To Contact [facility] Diagnoses Malignant neoplasm of unspecified site of left female breast Procedures OFFICE/OUTPATIENT ESTABLISHED MOD [facility] 30-39 MIN Rodrick Patton MD [facility] [place] [address] [facility] [address] [place] [address] [place] [address] Referral ID Status Reason Start Date Expiration Date V isits Requested Visits Authorized [id number] Closed Financial Clearance Required - OON Payor OON/Self Pay Override 11/03/2023 06/01/2024 1 1 Care Teams (unrecognized sec tion and content) [facility]ator [facility]ium Relationship Specialty Start Date End Date Davdi Tamez [address] [place] [address] PCP - General Internal Medicine 09/13/19 Rodrick Patton MD [address] [place] [address] Physician Hematology/Oncology 10/07/19 Stephanie Stovall, RN [address] [place] [place] [address] Specialty Coal Equipment Operator Hematology/Oncology 10/07/19 Samson Siegel, MUFFLER MECHANIC.WINE MASTER [address] [place] [place] [address] Nurse Practitioner Hematology/Oncology 10/07/19 Brad Bond MD [address] [place] [address] Physician Radiation Oncology 01/13/20 Curator Herbarium Relationship Specialty Start Date End Date David Tamez [address] [place] [address] PCP - General Internal Medicine 09/13/19 Rodrick Patton MD [address] [place] [address] Physician Hematology/Oncology 10/07/19 Stephanie Stovall, RN [address] [place] [address] Specialty Coal Equipment Operator Hematology/Oncology 10/07/19 Samson Siegel, MUFFLER MECHANIC.WINE MASTER [address] [place] [place] [address] Nurse Practitioner Hematology/Oncology 10/07/19 Brad Bond MD [address] [place] [place] [address] Physician Radiation Oncology 01/13/20 Curator Herbarium Relationship Specialty Start Date End Date David Tamez [address] [place] [address] PCP - General Internal Medicine 09/13/19 Rodrick Patton MD [address] [place] [address] Physician Hematology/Oncology 10/07/19 Stephanie Stovall, SHANNON [address] [place] [address] Specialty Coal Equipment Operator Hematology/Oncology 10/07/19 Samson Siegel, MUFFLER MECHANIC.WINE MASTER [address] [place] [place] [address] Nurse Practitioner Hematology/Oncology 10/07/19 Brad Bond MD [address] [place] [place] [address] Physician Radiation Oncology 01/13/20 Curator Herbarium Relationship Specialty Start Date End Date David Tamez [address] [place] [address] PCP - General Internal Medicine 09/13/19 Rodrick Patton MD [address] [place] [address] Physician Hematology/Oncology 10/07/19 Stephanie Stovall, SHANNON [address] [place] [address] Specialty Coal Equipment Operator Hematology/Oncology 10/07/19 Samson Siegel, MUFFLER MECHANIC.WINE MASTER [address] [place] [place] [address] Nurse Practitioner Hematology/Oncology 10/07/19 Brad Bond MD [address] [place] [place] [address] Physician Radiation Oncology 01/13/20 Curator Herbarium Relationship Specialty Start Date End Date David Tamez [address] [place] [address] PCP - General Internal Medicine 09/13/19 Rodrick Patton MD [address] [place] [address] Physician Hematology/Oncology 10/07/19 Samson Siegle, MUFFLER MECHANIC.WINE MASTER [address] [place] [address] Nurse Practitioner Hematology/Oncology 10/07/19 Brad Bond MD [address] [place] [address] Physician Radiation Oncology 01/13/20 Curator Herbarium Relationship Specialty Start Date End Date David Tamez [address] [place] [address] PCP - General Internal Medicine 09/13/19 Rodrick Patton MD [address] [place] [address] Physician Hematology/Oncology 10/07/19 Samson Siegel, MUFFLER MECHANIC.WINE MASTER [address] [place] [address] Nurse Practitioner Hematology/Oncology 10/07/19 Brad Bond MD [address] [place] [address] Physician Radiation Oncology 01/13/20 Curator Herbarium Relationship Specialty Start Date End Date David Tamez [address] [place] [address] PCP - General Internal Medicine 09/13/19 Rodrick Patton MD [address] [place] [place] [address] Physician Hematology/Oncology 10/07/19 Samson Siegel APRN.WINE MASTER [address] [place] [place] [address] Nurse Practitioner Hematology/Oncology 10/07/19 Brad Bond MD [address] [place] [address] [place] [address] Physician Radiation Oncology 01/13/20 Curator Herbarium Relationship Specialty Start Date End Date David Tamez [address] [place] [address] PCP - General Internal Medicine 09/13/19 Rodrick Patton MD [address] [place] [place] [address] Physician Hematology/Oncology 10/07/19 Samson Siegel, MUFFLER MECHANIC.WINE MASTER [address] [place] [address] [place] [address] Nurse Practitioner Hematology/Oncology 10/07/19 Brad Bond MD [address] [place] [place] [address] Physician Radiation Oncology 01/13/20 FOR RECORDS PERTAINING [...] BE BASED ON THE PRIMARY CLINICAL RECORDS. [facility] provides no warranty or guarantee of the accuracy or completeness of information in this document.
--- NOTE | 2024-01-30 11:25 | XR_ITS ---
The [address] [address] Patient Name: SAMPSON MCKENNA MRN: [id number] date: 1960 Sex: F Assigned Patient Location: [facility] Current Patient Location: [facility] Accession/Order Number: [id number] Exam Date: 01/30/2024 11:30 Report Date: 01/30/2024 12:00 At the request of: CURTIS ANDRADE Procedure: XR hip RT 2V w/ pelvis EXAM: XR hip RT 2V w/ pelvis HISTORY: Right Hip Pain, History Breast Cancer, Osteoporosis COMPARISON: None. TECHNIQUE: 3 views of right hip FINDINGS: There is no acute fracture or dislocation. No cortical erosion. There appears elongated oval-shaped lucent region measuring 3.9 x 1.4 cm in the proximal femoral shaft The soft tissue is unremarkable. XR/XR hip RT 2V w/ pelvis IMPRESSION: No fracture. There appears elongated oval-shaped lucent region measuring 3.9 x 1.4 cm in the proximal femoral shaft without cortical erosion. Differential diagnosis is no osteoporosis or benign/malignant lesion. CT of the hip is recommended for better evaluation. Electronically authenticated by: RENEE FLORES Date: 01/30/2024 12:00
== END 2024-01-30 23:59 | disposition home or self-care (01) ==
LOC: RAD 02-03 08:22
PROVIDERS: PCP Nurse Practitioner; Visit Provider Nurse Practitioner
DX: M25.551 Pain in right hip (principal); Z85.3 Personal history of malignant neoplasm of breast; M81.8 Other osteoporosis without current pathological fracture; M89.8X8 Other specified disorders of bone, other site
CPT/HCPCS: 73502

== ENCOUNTER 2024-02-11 08:28 | Outpatient (OUT) | payer OTHER, SELFPAY ==
--- NOTE | 2024-02-11 08:32 | CT_ITS ---
The [address] [address] Patient Name: SAMPSON MCKENNA MRN: [facility]:[id number] date: 1960 Sex: F Assigned Patient Location: CT Current Patient Location: CT Accession/Order Number: [id number] Exam Date: 02/11/2024 08:42 Report Date: 02/12/2024 16:44 At the request of: CURTIS ANDRADE Procedure: CT chest wo con EXAM: CT chest wo con HISTORY: Pleural Effusion COMPARISON: None. TECHNIQUE: Axial CT imaging was performed through the chest without intravenous contrast. Multiplanar reformats were performed. Dose reduction techniques were achieved by using automated exposure control and/or adjustment of mA and/or kV according to patient size and/or use of iterative reconstruction technique. FINDINGS: Lungs: Mild bilateral centrilobular emphysema. No pneumothorax. Boqsq-th-[id number] right pleural effusion with right lower lobe atelectasis and/or consolidation. Airways: Normal. Mediastinum: No adenopathy. Aorta: No aneurysm. Cardiac: Normal size. Small to moderate pericardial effusion. Coronary Arteries: Coronary calcifications are absent. Pulmonary vasculature: Normal morphology. Bones: No acute bony abnormality. Axilla: No adenopathy. Thyroid gland: No abnormality demonstrated on provided imaging. Soft tissues: Unremarkable. Upper abdomen: Low-density cystic structures scattered throughout the liver, the largest is at the dome of the liver. Other findings: None. CT/CT chest wo con IMPRESSION: Cmnzf-iy-[id number] right pleural effusion with right lower lobe atelectasis and/or consolidation. Small to moderate pericardial effusion. Electronically authenticated by: RENEE FLORES Date: 02/12/2024 16:44
--- NOTE | 2024-02-11 08:32 | CT_ITS ---
The [address] [address] Patient Name: SAMPSON MCKENNA MRN: [facility]:[id number] date: 1960 Sex: F Assigned Patient Location: CT Current Patient Location: Accession/Order Number: [id number] Exam Date: 02/11/2024 08:42 Report Date: 02/12/2024 08:10 At the request of: CURTIS ANDRADE Procedure: CT hip RT wo con Exam Type: CT RIGHT HIP Exam Date and Time: 02/11/2024 8:42 AM EDT Indication: 63 years old Female with right hip pain Comparison: Radiographs 01/30/2024 TECHNIQUE: Axial CT images of the right hip were obtained without intravenous contrast. Coronal and sagittal reformatted images were obtained. Dose reduction techniques were achieved by using automated exposure control and/or adjustment of mA and/or kV according to patient size and/or use of iterative reconstruction technique. FINDINGS: No acute displaced fracture identified. Mild osteoarthritis of the right hip with joint space narrowing marginal osteophytes. There is a cortical-based lucent lesion with some cortical destruction identified involving the proximal femoral diaphysis likely correlating with radiographic finding. No definite soft tissue component. This spans approximately 3.5 cm in maximum dimension. No evidence of a pathologic fracture is evident. No remote comparison studies are available. Given history of malignancy, a metastatic lesion is not entirely excluded. This could reflect fibrous dysplasia as well. At this point this is indeterminant. No other similar-appearing lesions identified in the right hemipelvis. Remaining soft tissues are without acute or suspicious abnormality. CT/CT hip RT wo con IMPRESSION: Indeterminate cortical based lucency involving the proximal femoral diaphysis. Given history of malignancy, a metastatic lesion is not entirely excluded. No evidence of a pathologic fracture. Recommend further evaluation with MRI with and without contrast and/or nuclear medicine bone scan . Electronically authenticated by: LAUREN CARNEY Date: 02/12/2024 08:10
== END 2024-02-11 08:29 | disposition home or self-care (01) ==
LOC: CT 08:29
PROVIDERS: PCP Nurse Practitioner; Visit Provider Nurse Practitioner
DX: J90 Pleural effusion, not elsewhere classified (principal); M25.551 Pain in right hip; M89.8X5 Other specified disorders of bone, thigh
CPT/HCPCS: 71250; 73700

== ENCOUNTER 2024-02-19 08:44 | Outpatient (OUT) | payer OTHER, SELFPAY ==
--- OUTSIDE RECORDS SUMMARY | 2024-02-19 08:49 | XMS_ITS | CCD ---
Author Organization [facility] Care Team Providers Care Case Repairer Name Role Phone David Tamez Primary Care Provider Rosemary ROSS, Rodrick Unavailable [phone] Wilman ORTEGA, Stephanie Unavailable [phone] Oren PLUMMER.ARMATURE WINDER REPAIR HELPER, Samson Unavailable Varun ROSS, Brad Unavailable RODRICK PATTON Admitting Unavailable DR LALO SALEEM Consulting Unavailable HYMANAN, RODRICK Attending Unavailable AICHHOLZ, ARMATURE WINDER REPAIR HELPER ANNE-MARIE Primary Care Unavailable HYMANAN, RODRICK Consulting Unavailable AICHHOLZ, ARMATURE WINDER REPAIR HELPER ANNE-MARIE Attending Unavailable AICHHOLZ, ARMATURE WINDER REPAIR HELPER ANNE-MARIE Consulting Unavailable AICHHOLZ, ARMATURE WINDER REPAIR HELPER ANNE-MARIE Primary Care Unavailable AICHHOLZ, ARMATURE WINDER REPAIR HELPER ANNE-MARIE Admitting Unavailable AICHHOLZ, ARMATURE WINDER REPAIR HELPER ANNE-MARIE Attending Unavailable AICHHOLZ, ARMATURE WINDER REPAIR HELPER ANNE-MARIE Consulting Unavailable AICHHOLZ, ARMATURE WINDER REPAIR HELPER ANNE-MARIE Primary Care Unavailable AICHHOLZ, ARMATURE WINDER REPAIR HELPER ANNE-MARIE Admitting Unavailable AICHHOLZ, ARMATURE WINDER REPAIR HELPER ANNE-MARIE Primary Care Unavailable DR RANJANA ZHANG V Consulting Unavailable FAWWAD, ESCOBAR H Admitting Unavailable FAWWAD, ESCOBAR H Attending Unavailable FAWWAD, ESCOBAR H Consulting Unavailable DR RANJANA ZHANG V Consulting Unavailable POOL, GAYATRI Admitting Unavailable AICHHOLZ, ARMATURE WINDER REPAIR HELPER ANNE-MARIE Primary Care Unavailable GAYATRI LANZA Attending Unavailable POOL, GAYATRI Consulting Unavailable AICHHOLZ, ARMATURE WINDER REPAIR HELPER ANNE-MARIE Attending Unavailable AICHHOLZ, ARMATURE WINDER REPAIR HELPER ANNE-MARIE Primary Care Unavailable AICHHOLZ, ARMATURE WINDER REPAIR HELPER ANNE-MARIE Admitting Unavailable AICHHOLZ, ARMATURE WINDER REPAIR HELPER ANNE-MARIE Attending Unavailable AICHHOLZ, ARMATURE WINDER REPAIR HELPER ANNE-MARIE Primary Care Unavailable AICHHOLZ, ARMATURE WINDER REPAIR HELPER ANNE-MARIE Consulting Unavailable AICHHOLZ, ARMATURE WINDER REPAIR HELPER ANNE-MARIE Admitting Unavailable AICHHOLZ, ARMATURE WINDER REPAIR HELPER ANNE-MARIE Primary Care Unavailable DR RANJANA ZHANG V Consulting Unavailable GAYATRI LANZA Admitting Unavailable GAYATRI LANZA Attending Unavailable GAYATRI LANZA Consulting Unavailable David Tamez Primary Care Provider David Tamez Primary Care Provider DIMAS AGUIRREA Attending Unavailable RAYMOND ANNE-MARIE Attending Unavailable DAVID TAMEZ Primary Care Unavailable ABHYANKAR, RODRICK Referring Unavailable ABHYANKAR, RODRICK Attending Unavailable DAVID TAMEZ Primary Care Unavailable ABHYANKAR, RODRICK Referring Unavailable ABHYANKAR, RODRICK Attending Unavailable DAVID TAMEZ Primary Care Unavailable DAVID TAMEZ Primary Care Unavailable ABHYANKAR, RODRICK Referring Unavailable Allergies Allergy Classification Reported Allergen(s) Allergy Type Date of Onset Reaction(s) Facility (12 sources) Codeine; Translations: [CODEINE] Drug Allergy 08-26-2019 Vomiting [facility] (12 sources) Adhesive Tape-Silicones; Translations: [ADHESIVE TAPE-SILICONES] Drug Allergy 09-20-2019 Rash, Itching [facility] (1 source) Adhesive bandage Drug allergy (disorder) 09-14-2019 [facility] (1 source) Codeine Drug Allergy 08-26-2019 [facility] Repository Medications Current Medications Medication Drug Class(es) Dates Sig (Normalized) Sig (Original) anastrozole 1 mg oral tablet (13 sources) Aromatase Inhibitor Start: 11-08-2021 End: 01-12-2024 anastrozole (ARIMIDEX) 1 mg tablet Indications: 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 TAKE 1 TABLET ONCE D AILY Biotin (11 sources) BIOTIN ORAL Take by mouth. Active BIOTIN ORAL Take by mouth. 0 Active Comment on above: Take by mouth. calcium carbonate 1000 mg oral tablet (11 sources) take 1000 mg by mouth once daily calcium carbonate (CALCIUM 500 ORAL) Take 1,000 mg by mouth once daily. Active Comment on above: Take 1,000 mg by inessa th once daily. cholecalciferol 0.125 mg oral tablet (11 sources) Vitamin D take 2 tablets by mouth twice daily cholecalciferol (VITAMIN D3) 5,000 unit tab Take 10,000 Units by mouth twice daily. Active Comment on above: Take 10,000 Units by mouth twice daily. famotidine 20 mg oral tablet (11 sources) Histamine-2 Receptor Antagonist take 1 tablet by mouth twice daily famotidine (PEPCID) 20 mg tablet Take 20 mg by mouth twice daily. Active Comment on above: Take 20 mg by mouth twice daily. fexofenadine (8 sources) Histamine-1 Receptor Antagonist fexofenadine HCl (FEXOFENADINE ORAL) Take by mouth. Active fexofenadine HCl (FEXOFENADINE ORAL) Take by mouth. 0 Active Comment on above: Take by mouth. hydrOXYzine hydrochloride 25 mg oral tablet (11 sources) Antihistamine Start: 021 take 1 tablet by mouth once daily at bedtime hydrOXYzine HCl (ATARAX) 25 mg tablet Take 1 tablet by mouth daily at bedtime. 30 tablet 1 07/17/2020 Active Comment on above: Take 1 tablet by inessa th daily at bedtime. levothyroxine sodium 0.075 mg oral tablet (11 sources) l-Thyroxine take 1 tablet by mouth once daily before breakfast levothyroxine (SYNTHROID) 75 mcg tablet Take 75 mcg by mouth daily before breakfast. Active Comment on above: Take 75 mcg by mouth daily before breakfast. loratadine 10 mg oral capsule (11 sources) take 1 capsule by mouth once daily loratadine 10 mg cap Take 10 mg by mouth once daily. Active Comment on above: Take 10 mg by mouth once daily. Magnesium (11 sources) Magnesium 250 mg tab Take 250 mg by mouth. Active Magnesium 250 mg tab Take 250 mg by mouth. 0 Active Comment on above: Take 250 mg by mouth . Turmeric extract (11 sources) TURMERIC ORAL Ta ke by mouth. Active TURMERIC ORAL Ta ke by mouth. 0 Active Comment on above: Take by mouth. Vitamin B Complex (11 sources) vitamin B comple x (B COMPLEX 1 ORAL) Take by mouth. Active vitamin B comple x (B COMPLEX 1 ORAL) Take by mouth. 0 Active Comment on above: Take by mouth. Problems Active Problems Problem Classification Problem Date Documented Da te Episodic/Chronic Cancer of breast (20 sources) Infiltrating duct carcinoma of breast; Translations: [Malignant neoplasm of unspecified site of left female breast] Onset: 10-07-2019 10-07-2019 Chronic Nutritional deficiencies (1 source) Vitamin D deficiency, unspecified; Translations: [VITAMIN D DEFICIENCY UNSPECIFIED] Onset: 09-06-2022 Chronic Osteoporosis (15 sources) Osteoporosis; Translations: [Other osteoporosis without current pathological fracture] Onset: 01-01-2021 01-01-2021 Chronic Other aftercare (5 sources) Prophylactic aromatase inhibitors given; Translations: [shelter (current) use of aromatase inhibitors] Onset: 11-19-2023 11-19-2023 Episodic Other bone disease and musculoskeletal deformities (1 source) Disorder of bone; Translations: [Disorder of bone, unspecified] 02-13-2024 Episodic Other screening for suspected conditions (not [...] Test Name Value Interpretation Reference Range Facility [facility] 02-13-2024 [facility] Telephone ([place]) TINY MCKENNA ([id number]) 1960 F Date Time Provider Department 02/13/24 ABHYANKAR, RODRICK NCCAP During your visit today, we recorded the following information about you: Kostas Falk RN 02/13/2024 11:37 AM Signed Call rec'd from Anne-Marie Aguirre, SKYE NOMS. Pt seen in December for R Rib pain. Xray showed Rib FX and R Plueral effusion . Pt then c/o R hip pain and Xray showed lesion femur. CT Chest/R Hip completed yesterday. She is requesting Dr Coleman review and follow up with pt. Pt had sent scan reports to Dr Coleman, he is aware and would like to see pt today. Sy Barker, nurse agency manager aware and will have team call to schedule. Nury Bass to obtain records and imaging. SHANNON Rand Amy S 02/13/2024 10:06 AM Signed Patient has Clinton Azar Plan-Needs to speak to a PFA before she can be scheduled with Dr Patton. Patient is wanting to get a PET scan done at [facility]. Kostas Bonner RN 02/13/2024 11:37 AM Signed Cipriano aware pt is unable to come for visit until discussed with PFA, d/t insurance. Pt is need PET ordered and performed at facility that accepts her insurance. Dr Coleman will call and discuss with pt Cipriano: Please review and sign pended WB PET SHANNON Rand Amy S 02/13/2024 11:40 AM Signed Spoke to patient AND set her up to talk to a PFA on 02/16/2024 at 3 pm. Rodrick Dicknison MD 02/13/2024 12:41 PM Signed Thanks - I will call her later. Kostas Falk RN 02/13/2024 1:15 PM Signed PET order faxed to [facility]; [phone]. SHANNON Rand Natalie, RN 02/16/2024 2:12 PM Signed Anne-Marie called to check status of pt. She is aware pt meeting with PFA today. Dr Coleman discussed CT reports with pt Friday. PET sent to [facility]. Anne-Marie called to verify receipt of PET order to schedule. [facility] uses [facility]. #[phone]. I called to see if order sent by [facility]. No order or pt information in their system. Faxed order, face sheet, insurance information and copy of CT report to [phone], as requested. They will review and call pt to schedule. Kostas Falk RN Allergies As of Date: 02/13/2024 Noted Allergy Reaction ADHESIVE TAPE-SILICONES 09/20/2019 2 - Rash 9 - Itching CODEINE 08/26/2019 11 - Vomiting Date Reviewed: 11/19/2023 Reviewed by: Heavenly Trejo MA - Fully Assessed Reason for Visit: Appointment [186] Primary Visit Diagnosis:Disorder of bone [M89.9] Order(s):ID PET/CT WHOLE BODY INITIAL [[id number]] Order #: [id number] FUTURE Prescriptions as of 02/16/2024 - anastrozole (ARIMIDEX) 1 mg tablet take 1 tablet once daily - fexofenadine HCl (FEXOFENADINE ORAL) Take by [...] twice daily. Problem List As Of Date 02/13/2024 Noted Resolved Invasive ductal carcinoma of left breast (HCC) *10/07/2019 Other osteoporosis without current pathological*01/02/20 21 Aromatase inhibitor use [Z79.811] 11/19/2023 Encounter Status:Closed by KOSTAS FALK on 02/13/24 Normal [facility] CNOVSPon 11-19-2023 CNOVSP Visit (SP) Office ([facility]) TINY MCKENNA ([id number]) 1960 F Date Time Provider Department 11/19/23 10:15 AM RODRICK PATTON During your visit today, we recorded the following information about you: Temperature Pulse Respiration Blood pressure 97.4 degrees 66/minute 16/minute 140/77 Weight Height 64.3 kg 1.64 m Heavenly Trejo MA 11/19/2023 10:13 AM Signed Patient had labs at [facility] they are in Care Everywhere. LUCRECIA Song Vivek, MD 11/19/2023 7:40 PM Signed NAME: Tiny Mckenna CLINIC NO.: [id number] DATE OF SERVICE: November 19, 2023 (Rosemary) Some elements in this clinic note that are critical to medical decision making have been carefully reviewed and included from a prior clinic note dated: May 15, 2023 (Roseamry) Referring Provider: Dr. 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 ER positive and MT and HER-2/adalberto were both negative. She completed [...] December 2023 - patient will call. (At [facility]) next DXA in 11/2024 DXA ordered, reschedule to 11/2024 at [facility]. HPI: CASE HISTORY: Reverse Chronological Order 09/27/2023 [...] right breast. 08/26/2019 - Bilateral diagnostic mammography: [facility]. Right breast with mild architectural distortion [...] with Garrett Tumor markers check 11/13/2023 at [facility] were normal All labs normal aside rom [...] restart it after that. If this does turning machine operator helper to be the cause, we will plan to switch to an alterna (more content not included)... Normal [facility] ([id number]) 1960 F Date Time Provider Department 07/15/23 KOSTAS FALK During your visit today, we recorded the following information about you: Kostas Falk RN 07/15/2023 3:26 PM Signed Pt sent MyChart with [facility] information: The calculation clerk is Dr Aidan Resendiz, phone is [phone] email is [email or web address] I have another consultation with him on Friday, 07/18. Thank you, Annette Kwanrath 05/15/23 Office Note per Cipriano: She needs [...] Fry - Fully Assessed Reason for Visit: [facility] [Other] Prescriptions as of 07/16/2023 - anastrozole [...] by KOSTAS FALK on 07/16/23 [facility] CNOVSPon 05-15-2023 CNOVSP Visit (SP) Office ([place]) TINY MCKENNA ([id number]) 1960 F Date Time Provider Department 05/15/23 10:30 AM RODRICK PATTON During your visit today, we recorded the following information about you: Temperature Pulse Respiration Blood pressure 97.8 degrees 71/minute 18/minute 137/89 Weight Height 68.2 kg 1.64 m Rodrick Patton MD 05/15/2023 8:36 PM Signed NAME: Tiny Mckenna CLINIC NO.: [id number] DATE OF SERVICE: May 15, 2023 (Rosemary) Some elements in this clinic note that are critical to medical decision making have been carefully reviewed and included from a prior clinic note dated: November 14, 2022 (Rosemary) Referring Provider: Dr. 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 ER positive and MT and HER-2/adalberto were both negative. She completed [...] 12/2023 DXA ordered, scheduled for 12/2023 at [facility]. HPI: Case History: 06/05/2020- 11/13/2020: adjuvant [...] the right breast. 08/26/2019 bilateral diagnostic mammography: [facility]. Right breast with mild architectural distortion [...] restart it after that. If this does turning machine operator helper to be the cause, we will plan to switch to an alternative. She feels she is sleeping okay. Wakes up feeling very groggy, but does not have any problems with falling asleep during the day. Denies noticing any severe drowsiness while driving. [place] due to her Prolia [...] increased s (more content not included)... Normal [facility] David 05-15-2023 [facility] Telephone (NCCAP) TINY MCKENNA ([id number]) 1960 F Date Time Provider Department 05/15/23 RODRICK PATTON NCCAP During your visit today, we recorded the following information about you: FelisheyLamont 05/15/2023 11:29 AM Signed DXA ordered, scheduled for 12/2023 at [facility]. CIPRIANO: Patient just had a DEXA scan this year, November 2022 so she will not be due until 2024 - also insurances typically only cover every 2 years. Is there a reason we are doing earlier? Also, patient would like her labs drawn at [facility] prior to 6 month follow up due to insurance purposes. Can you please place her labs orders and I will have those mailed to her? Thanks! Rodrick Mckenzie MD 05/15/2023 1:04 PM Signed Orders entered! thanks FelisheyLamont 05/15/2023 4:42 PM Signed OK for DEXA [...] [M81.8] Order(s):COMP METABOLIC PANEL [SQCMP] Order #: [id number] FUTURE CBC + DIFF [SQCBCDIF] Order #: [id number] FUTURE CA 15-3 BLD [OEPD184] Order #: [id number] FUTURE CA 27.29 BLOOD [YREQ2397] Order #: [id number] FUTURE VITAMIN D 25 HYDROXY [SQVITD] Order #: [id number] FUTURE Prescriptions as of 05/16/2023 - anastrozole [...] Status:Closed by LAMONT CHRISTINE on 05/16/23 Normal [facility] PAP ACOG PANEL 2: 30 to 65on 09-05-2022 . . Normal [facility] Comment on above: Result Comment: Perf ormed at: WB Performed By: #### [id number] #### [facility] [address] [place] [address] Dr. Shashi Cohen Age Gdln ACOG Testing 30-65 Normal [facility] Comment on above: Performed By: #### [id number] #### [facility] [address] [address] [address] Shashi Cohen DIAGNOSIS: Comment Normal [facility] Comment on above: Result Comment: NEGA TIVE FOR INTRAEPITHELIAL LESION OR MALIGNANCY. Performed at: WB Performed By: #### 4 [id number] #### [facility] [address] [address] [address] Shashi Cohen HPV Aptima Negative Normal Negative [facility] Comment on above: Result Comment: This nucleic acid amplification test detects fourteen high-risk HPV types (16,18,31,33,35,39,45,51,52,56,58,59,66,68) without differentiation. Performed at: =G Performed By: #### 4 [id number] #### [facility] [address] [place] [address] Dr. Shashi Cohen HPV Genotype Reflex Comment Normal [facility] Comment on above: Result Comment: Crit ersurya not met, HPV Genotype not performed. Performed at: WB Performed By: #### [id number] #### [facility] [address] [place] [address] Dr. Shashi Cohen Methodology: Comment Normal [facility] Comment on above: Result Comment: This liquid based ThinPrep(R) pap test was screened with the use of an image guided system. Performed at: WB Performed By: #### [id number] #### [facility] [address] [place] [address] Dr. Shashi Cohen Note: Comment Normal [facility] Comment on above: Result Comment: The Pap smear is a screening test designed to aid in the detection of premalignant and malignant conditions of the uterine cervix. It is not a diagnostic procedure and should not be used as the sole means of detecting cervical cancer. Both false-positive and false-negative reports do occur. . Performed at: WB Performed By: #### [id number] #### [facility] [address] [place] [address] Dr. Shashi Cohen Performed by: Comment Normal [facility] Comment on above: Result Comment: Sujata Shahid Psychiatric Technician (ASCP) Performed at: WB Performed By: #### [id number] #### [facility] [address] [place] [address] Dr. Shashi Cohen Specimen adequacy: Comment Normal [facility] Comment on above: Result Comment: Sati sfactory for evaluation. Performed at: WB Performed By: #### 4 [id number] #### [facility] [address] [place] [address] Dr. Shashi Cohen CBC AUTO DIFFon 08-29-2022 BASO # 0.0 103/ul Normal 0.0-0.1 [facility] Comment on above: Performed By: #### C BC #### [facility] [address] [address] [address] Shashi Cohen Basophils/100 WBC (Bld) 0.7 % Normal 0.2-2.0 [facility] Comment on above: Performed By: #### C BC #### [facility] [address] [place] [address] Dr. Shashi Cohen EO # 0.1 103/ul Normal 0.0-0.7 [facility] Comment on above: Performed By: #### C BC #### [facility] [address] [place] [address] Dr. Shashi Cohen Eosinophils/100 WBC (Bld) 1.4 % Normal 0.9-7.0 [facility] Comment on above: Performed By: #### C BC #### [facility] [address] [place] [address] Dr. Shashi Cohen Erythrocyte distribution width (RBC) [Ratio] 13.7 % Normal 11.0-15.0 [facility] Comment on above: Performed By: #### C BC #### [facility] [address] [place] [address] Dr. Shashi Cohen Hematocrit (Bld) [Volume fraction] 43.9 % Normal 36.0-48.0 [facility] Comment on above: Performed By: #### C BC #### [facility] [address] [place] [address] Dr. Shashi Cohen Hemoglobin (Bld) [Mass/Vol] 14.1 g/dL Normal 12.0-16.0 [facility] Comment on above: Performed By: #### C BC #### [facility] [address] [place] [address] Dr. Shashi Cohen IG # 0.02 10e3/ul Normal 0.00-0.03 [facility] Comment on above: Performed By: #### C BC #### [facility] [address] [place] [address] Dr. Shashi Cohen IG % 0.4 % Normal 0.0-0.5 [facility] Comment on above: Performed By: #### C BC #### [facility] [address] [place] [address] Dr. Shashi Cohen LYMPH # 1.9 103/ul Normal 1.2-3.8 [facility] Comment on above: Performed By: #### C BC #### [facility] [address] [place] [address] Dr. Shashi Cohen Lymphocytes/100 WBC (Bld) 33.2 % Normal 20.5-60.0 [facility] Comment on above: Performed By: #### C BC #### [facility] [address] [place] [address] Dr. Shashi Cohen MANUAL DIFF REQ NO Normal [facility] Comment on above: Performed By: #### C BC #### [facility] [address] [place] [address] Dr. Shashi Cohen MCH (RBC) [Entitic mass] 28.7 pg Normal 26.7-34.0 [facility] Comment on above: Performed By: #### C BC #### [facility] [address] [place] [address] Dr. Shashi Cohen MCHC (RBC) [Mass/Vol] 32.1 g/dL Normal 29.9-35.2 [facility] Comment on above: Performed By: #### C BC #### [facility] [address] [place] [address] Dr. Shashi Cohen MCV (RBC) [Entitic vol] 89.2 fL Normal 81.0-99.0 [facility] Comment on above: Performed By: #### C BC #### [facility] [address] [place] [address] Dr. Shashi Cohen MONO # 0.5 103/ul Normal 0.3-0.8 [facility] Comment on above: Performed By: #### C BC #### [facility] [address] [place] [address] Dr. Shashi Cohen Monocytes/100 WBC (Bld) 8.8 % Normal 1.7-12.0 [facility] Comment on above: Performed By: #### C BC #### [facility] [address] [place] [address] Dr. Shashi Cohen NEUT # 3.1 103/ul Normal 1.4-6.5 [facility] Comment on above: Performed By: #### C BC #### [facility] [address] [address] [address] Shashi Cohen Neutrophils/100 WBC (Bld) 55.5 % Normal 43.0-75.0 [facility] Comment on above: Performed By: #### C BC #### [facility] [address] [address] [address] Shashi Cohen Platelet mean volume (Bld) [Entitic vol] 9.9 fL Normal 9.5-13.5 [facility] Comment on above: Performed By: #### C BC #### [facility] [address] [address] [address] Shashi Cohen PLT 244 103/ul Normal 150-450 [facility] Comment on above: Performed By: #### C BC #### [facility] [address] [address] [address] Shashi Cohen RBC 4.92 106/ul Normal 4.20-5.40 [facility] Comment on above: Performed By: #### C BC #### [facility] [address] [address] [address] Shashi Cohen WBC 5.6 103/ul Normal 4.0-11.0 [facility] Comment on above: Performed By: #### C BC #### [facility] [address] [address] [address] Shashi Cohen GLYCOHEMOGLOBIN A1Con 2022 ADA RECOMMENDATION SEE BELOW Normal [facility] Comment on above: Result Comment: ADA RECOMMENDED LIMIT 4.0 - 6.0 ADA THERAPEUTIC TARGET < 7.0 ACTION SUGGESTED > 7.0 Performed By: #### A 1C ####[facility] [id number] [address]Dr. Shashi Cohen Glucose [Mass/Vol] 126 mg/dL Normal [facility] Comment on above: Performed By: #### A 1C ####[facility] [id number] [address]Dr. Shashi Cohen HbA1c (Bld) [Mass fraction] 6.0 % Normal 4.5-6.2 [facility] Comment on above: Performed By: #### A 1C ####[facility] [id number] [place], [place] [address]HpDr. Shashi Cohen LIPID PROFILEon 08-29-2022 CHOL-HDL RATIO NORM SEE BELOW Normal [facility] Comment on above: Result Comment: 3.3 - 4.4 LOW RISK 4.4 - 7.1 AVERAGE RISK 7.1 - 11.0 MODERATE RISK >11.0 HIGH RISK Performed By: #### T SH, CMP, LIPID #### [facility] [address] [address] [address] Shasih Cohen Cholesterol [Mass/Vol] 186 mg/dL Normal <=200 [facility] Comment on above: Performed By: #### T SH, CMP, LIPID #### [facility] [address] [address] [address] Shashi Cohen Cholesterol in HDL [Mass/Vol] 43 mg/dL Normal 40-60 [facility] Comment on above: Performed By: #### T SH, CMP, LIPID #### [facility] [address] [address] [address] Shashi Cohen Cholesterol in LDL [Mass/Vol] 129.2 mg/dL Normal [facility] Comment on above: Performed By: #### T SH, CMP, LIPID #### [facility] [address] [address] [address] Shashi Cohen Cholesterol.total/Ch olesterol in HDL [Mass ratio] 4.3 {ratio} Normal [facility] Comment on above: Performed By: #### T SH, CMP, LIPID #### [facility] [address] [address] [address] Shashi Cohen HDL NORMAL > or = 60 mg/dl - LO W CARDIOVASCULAR RISK <40 mg/dl - HIGH CARDIOVASCULAR RISK Normal [facility] Comment on above: Performed By: #### T SH, CMP, LIPID #### [facility] [address] [address] [address] Shashi Cohen LDL CALC NORMAL SEE BELOW Normal [facility] Comment on above: Result Comment: <100 mg/dl OPTIMAL 100 - 129 mg/dl NEAR OR ABOVE OPTIMAL 130 - 159 mg/dl BORDERLINE HIGH 160 - 189 mg/dl HIGH >190 mg/dl VERY HIGH Performed By: #### T SH, CMP, LIPID #### [facility] [address] [address] [address] Shashi Cohen Triglyceride [Mass/Vol] 69 mg/dL Normal <=150 [facility] Comment on above: Performed By: #### T SH, CMP, LIPID #### [facility] [address] [address] [address] Shashi Cohen VLDL CALC 13.8 mg/dL Normal [facility] Comment on above: Performed By: #### T SH, CMP, LIPID #### [facility] [address] [address] [address] Shashi Cohen PROF 14(COMP METB)on 023 Albumin [Mass/Vol] 3.9 g/dL Normal 3.4-5.0 [facility] Comment on above: Performed By: #### T SH, CMP, LIPID #### [facility] [address] [address] [address] Shashi Cohen Albumin/Globulin [Mass ratio] 1.1 {ratio} Normal [facility] Comment on above: Performed By: #### T SH, CMP, LIPID #### [facility] [address] [address] [address] Shashi Cohen ALP [Catalytic activity/Vol] 63 U/L Normal 46-116 [facility] Comment on above: Performed By: #### T SH, CMP, LIPID #### [facility] [address] [address] [address] Shashi Cohen ALT [Catalytic activity/Vol] 23 U/L Normal 14-59 [facility] Comment on above: Performed By: #### T SH, CMP, LIPID #### [facility] [address] [address] [address] Shashi Cohen Anion gap [Moles/Vol] 15.6 mmol/L Normal [facility] Comment on above: Performed By: #### T SH, CMP, LIPID #### [facility] [address] [address] [address] Shashi Cohen AST [Catalytic activity/Vol] 12 U/L Critically low 15-37 [facility] Comment on above: Performed By: #### T SH, CMP, LIPID #### [facility] [address] [place] [address] Dr. Shashi Cohen Bilirubin [Mass/Vol] 0.3 mg/dL Normal 0.2-1.0 [facility] Comment on above: Performed By: #### T SH, CMP, LIPID #### [facility] [address] [address] [address] Shashi Cohen Calcium [Mass/Vol] 9.1 mg/dL Normal 8.5-10.1 [facility] Comment on above: Performed By: #### T SH, CMP, LIPID #### [facility] [address] [place] [address] Dr. Shashi Cohen Chloride [Moles/Vol] 102 mmol/L Normal 98-107 [facility] Comment on above: Performed By: #### T SH, CMP, LIPID #### [facility] [address] [place] [address] Dr. Shashi Cohen CO2 [Moles/Vol] 25.4 mmol/L Normal 21.0-32.0 [facility] Comment on above: Performed By: #### T SH, CMP, LIPID #### [facility] [address] [place] [address] Dr. Shashi Cohen Creatinine [Mass/Vol] 0.55 mg/dL Normal 0.55-1.02 [facility] Comment on above: Performed By: #### T SH, CMP, LIPID #### [facility] [address] [place] [address] Dr. Shashi Cohen EGFR-AF MOZAMBICAN >60 Normal >=60 [facility] Comment on above: Performed By: #### T SH, CMP, LIPID #### [facility] [address] [place] [address] Dr. Shashi Cohen EGFR-NON AF MOZAMBICAN >60 Normal >=60 [facility] Comment on above: Performed By: #### T SH, CMP, LIPID #### [facility] [address] [address] [address] Shashi Cohen Globulin (S) [Mass/Vol] 3.5 g/dL Normal [facility] Comment on above: Performed By: #### T SH, CMP, LIPID #### [facility] [address] [address] [address] Shashi Cohen Glucose [Mass/Vol] 100 mg/dL Normal 74-106 [facility] Comment on above: Performed By: #### T SH, CMP, LIPID #### [facility] [address] [place] [address] Dr. Shashi Cohen Potassium [Moles/Vol] 4.0 mmol/L Normal 3.5-5.1 [facility] Comment on above: Performed By: #### T SH, CMP, LIPID #### [facility] [address] [place] [address] Dr. Shashi Cohen Protein [Mass/Vol] 7.4 g/dL Normal 6.4-8.2 [facility] Comment on above: Performed By: #### T SH, CMP, LIPID #### [facility] [address] [place] [address] Dr. Shashi Cohen Sodium [Moles/Vol] 139 mmol/L Normal 136-145 [facility] Comment on above: Performed By: #### T SH, CMP, LIPID #### [facility] [address] [place] [address] Dr. Shashi Cohen Urea nitrogen [Mass/Vol] 14.0 mg/dL Normal 7.0-18.0 [facility] Comment on above: Performed By: #### T SH, CMP, LIPID #### [facility] [address] [place] [address] Dr. Shashi Cohen Urea nitrogen/Creatinine [Mass ratio] 25.5 mg/mg Normal [facility] Comment on above: Performed By: #### T SH, CMP, LIPID #### [facility] [address] [place] [address] Dr. Shashi Cohen TSHon 08-29-2022 TSH 2.445 uIU/mL Normal 0.358-3.[address] [facility] Comment on above: Performed By: #### T SH, CMP, LIPID #### [facility] [address] [place] [address] Dr. Shashi Cohen UA RANDOM W/MICROSCOPICon BACTERIA NONE SEEN Normal NONE SEEN [facility] Comment on above: Performed By: #### U AMIC #### [facility] [address] [place] [address] Dr. Shashi Cohen Bilirubin Ql (U) Negative Normal NEGATIVE [facility] Comment on above: Performed By: #### U AMIC #### [facility] [address] [place] [address] Dr. Shashi Cohen CAST NONE SEEN Normal NONE SEEN [facility] Comment on above: Performed By: #### U AMIC #### [facility] [address] [place] [address] Dr. Shashi Cohen Clarity (U) CLEAR Normal CLEAR [facility] Comment on above: Performed By: #### U AMIC #### [facility] [address] [place] [address] Dr. Shashi Cohen Color (U) LT. YELLOW Normal YELLOW [facility] Comment on above: Performed By: #### U AMIC #### [facility] [address] [place] [address] Dr. Shashi Cohen Crystals LM Nom (Urine sed) NONE SEEN Normal NONE SEEN [facility] Comment on above: Performed By: #### U AMIC #### [facility] [address] [place] [address] Dr. Shashi Cohen Epithelial cells LM Ql (Urine sed) NONE SEEN Normal NONE SEEN /RARE [facility] Comment on above: Performed By: #### U AMIC #### [facility] [address] [place] [address] Dr. Shashi Cohen Glucose Ql (U) Negative Normal NEGATIVE [facility] Comment on above: Performed By: #### U AMIC #### [facility] [address] [address] [address] Shashi Cohen Hemoglobin Ql (U) Negative Normal NEGATIVE [facility] Comment on above: Performed By: #### U AMIC #### [facility] [address] [address] [address] Shashi Cohen Ketones Ql (U) Negative Normal NEGATIVE [facility] Comment on above: Performed By: #### U AMIC #### [facility] [address] [address] [address] Shashi Cohen LEUKOCYTES Negative Normal NEGATIVE [facility] Comment on above: Performed By: #### U AMIC #### [facility] [address] [address] [address] Shashi Cohen MUCOUS NONE SEEN Normal NONE SEEN [facility] Comment on above: Performed By: #### U AMIC #### [facility] [address] [place] [address] Dr. Shashi Cohen Nitrite Ql (U) Negative Normal NEGATIVE [facility] Comment on above: Performed By: #### U AMIC #### [facility] [address] [place] [address] Dr. Shashi Cohen pH (U) 6.0 [pH] Normal 5-9 [facility] Comment on above: Performed By: #### U AMIC #### [facility] [address] [place] [address] Dr. Shashi Cohen RBC 0-2 Normal 0-2 [facility] Comment on above: Performed By: #### U AMIC #### [facility] [address] [address] [address] Shashi Cohen SPEC GRAVITY <=1.005 Abnormal 1.005-<=1.025 [facility] Comment on above: Performed By: #### U AMIC #### [facility] [address] [place] [address] Dr. Shashi Cohen UA PROTEIN Negative Normal NEGATIVE/ TRACE [facility] Comment on above: Performed By: #### U AMIC #### [facility] [address] [place] [address] Dr. Shashi Cohen Urobilinogen Qn (U) 0.2 {Stephan'U}/dL Normal 0.2 - 1. 0 [facility] Comment on above: Performed By: #### U AMIC #### [facility] [address] [address] [address] Shashi Cohen WBC NONE SEEN Normal NONE SEEN [facility] Comment on above: Performed By: #### U AMIC #### [facility] [address] [address] [address] Shashi Cohen VITAMIN D 25 OHon 08-29-2022 VIT D 25-OH 70.4 ng/mL Normal [facility] Comment on above: Performed By: #### V ITAD ####[facility] [address] [address]. Sahshi Cohen VIT D RANGES SEE BELOW Normal [facility] Comment on above: Result Comment: <20 ng/mL Vit D deficient 20 - <30 ng/mL Vit D insufficient 30 - 100 ng/mL Vit D sufficient >100 ng/mL Potential Toxicity Performed By: #### V ITAD ####[facility] [address] [id number]. Shashi Cohen [facility] 3D SENIA CA Don 08-14-2022 [facility] 3D SENIA CAD Patient: TINY MCKENNA Exam Date: 08/14/2022 : 1960 Gender:F Ordering : DR. RODRICK PATTON M.D. Admission #: [id number] Family : KAMILA ANNE-MARIE MCKENZIEJOSH [employer] Order #: [id number] CLICK HERE TO VIEW EXAM RADIOLOGY REPORT [...] kidney cancer at age 61. LOCATION: [facility] BREAST COMPOSITION: Scattered areas fibroglandular density. [...] M.D. on 08/14/2022 at 14:26 Normal [facility] PROF CHEM 8 (BAS METB)on Anion gap [Moles/Vol] 10.7 mmol/L Normal [facility] Comment on above: Performed By: #### B MP ####[facility] [address] [address]Dr. Shashi Cohen Calcium [Mass/Vol] 9.5 mg/dL Normal 8.5-10.1 [facility] Comment on above: Performed By: #### B MP ####[facility] [address] [address]Dr. Shashi Cohen Chloride [Moles/Vol] 102 mmol/L Normal 98-107 [facility] Comment on above: Performed By: #### B MP ####[facility] [address] [address]Dr. Shashi Cohen CO2 [Moles/Vol] 31.0 mmol/L Normal 21.0-32.0 [facility] Comment on above: Performed By: #### B MP ####[facility] [address] [address]Dr. Shashi Cohen Creatinine [Mass/Vol] 0.70 mg/dL Normal 0.55-1.02 [facility] Comment on above: Performed By: #### B MP ####[facility] [address] [address]Dr. Shashi Cohen EGFR-AF MOZAMBICAN >60 Normal >=60 [facility] Comment on above: Performed By: #### B MP ####[facility] [address] [id number]. Shashi Cohen EGFR-NON AF MOZAMBICAN >60 Normal >=60 [facility] Comment on above: Performed By: #### B MP ####[facility] [address] [place], [place] [address]Ne. Shashi Cohen Glucose [Mass/Vol] 119 mg/dL Critically high 74-106 [facility] Comment on above: Performed By: #### B MP ####[facility] [address] [place], [place] [address]Ki. Shashi Cohen Potassium [Moles/Vol] 4.7 mmol/L Normal 3.5-5.1 [facility] Comment on above: Performed By: #### B MP ####[facility] [address] [id number]. Shashi Cohen Sodium [Moles/Vol] 139 mmol/L Normal 136-145 [facility] Comment on above: Performed By: #### B MP ####[facility] [address] [id number]. Shashi Cohen Urea nitrogen [Mass/Vol] 19.0 mg/dL Critically high 7.0-18.0 [facility] Comment on above: Performed By: #### B MP ####[facility] [address] [id number]. Shashi Cohen Urea nitrogen/Creatinine [Mass ratio] 27.1 mg/mg Normal [facility] Comment on above: Performed By: #### B MP ####[facility] [address] [id number]. Shashi Cohen TSH+FREE T4on 12-19-2020 Free T4 [Mass/Vol] 1.5 ng/dL Normal 0.8-1.8 [facility] Comment on above: Performed By: #### 5 8984 #### [facility] [address], [address] [place] [phone] Claims Account Specialist: Rivera Summers MD TSH Qn 0.58 m[IU]/L Normal 0.40-4.50 [facility] Comment on above: Performed By: #### 5 8984 #### [facility] [address] [address] Claims Account Specialist: Rivera Summers MD [facility] 12-01-2020 Albumin [Mass/Vol] 4.3 g/dL Normal 3.6-5.1 [facility] Comment on above: Performed By: #### 7 600, 50253, 67266, 88956 #### [facility] [address] [address] Claims Account Specialist: Rivera Summers MD Albumin/Globulin [Mass ratio] 1.9 {ratio} Normal 1.0-2.5 [facility] Comment on above: Performed By: #### 7 600, 52706, 68926, 45531 #### [facility] [address] [address] Claims Account Specialist: Rivera Summers MD ALP [Catalytic activity/Vol] 72 U/L Normal 37-153 [facility] Comment on above: Performed By: #### 7 600, 31145, 34028, 65110 #### [facility] [address] [address] Claims Account Specialist: Rivera Summers MD ALT [Catalytic activity/Vol] 14 U/L Normal 6-29 [facility] Comment on above: Performed By: #### 7 600, 00896, 31052, 02729 #### [facility] [address] [address] Claims Account Specialist: Rivera Summers MD AST [Catalytic activity/Vol] 15 U/L Normal 10-35 [facility] Comment on above: Performed By: #### 7 600, 87822, 06229, 82301 #### [facility] [address] [address] Claims Account Specialist: Rivera Summers MD Bilirubin [Mass/Vol] 0.5 mg/dL Normal 0.2-1.2 [facility] Comment on above: Performed By: #### 7 600, 15188, 72972, 05168 #### [facility] [address] [address] Claims Account Specialist: Rivera Summers MD BUN/CREATININE RATIO NOT APPLICABLE Normal 6-22 [facility] Comment on above: Performed By: #### 7 600, 37628, 40210, 14780 #### [facility] [address] [address] Claims Account Specialist: Rivera Summers MD Calcium [Mass/Vol] 9.2 mg/dL Normal 8.6-10.4 [facility] Comment on above: Performed By: #### 7 600, 68334, 97546, 01219 #### [facility] [address] [address] Claims Account Specialist: Rivera Summers MD Chloride [Moles/Vol] 107 mmol/L Normal 98-110 [facility] Comment on above: Performed By: #### 7 600, 44082, 56369, 97942 #### [facility] [address] [address] Claims Account Specialist: Rivera Summers MD CO2 [Moles/Vol] 22 mmol/L Normal 20-32 [facility] Comment on above: Performed By: #### 7 600, 01082, 82450, 90769 #### [facility] [address] [address] Claims Account Specialist: Rivera Summers MD Creatinine [Mass/Vol] 0.54 mg/dL Normal 0.50-1.05 [facility] Comment on above: Result Comment: For patients >49 years of age, the reference limit for Creatinine is approximately 13% higher for people identified as -Malaysian. Performed By: #### 7 600, 53016, 33554, 61098 #### [facility] [address] [address] Claims Account Specialist: Rivera Summers MD eGFR NON-AFR. MOZAMBICAN 104 mL/min/1.73m2 Normal > OR = 60 [facility] Comment on above: Performed By: #### 7 600, 45506, 00763, 98855 #### [facility] [address] [place] [address] Claims Account Specialist: Rivera Summers MD GFR/1.73 sq M.predicted among blacks MDRD (S/P/Bld) [Vol rate/Area] 121 mL/min/{1.73_m2} Normal > OR = 60 [facility] Comment on above: Performed By: #### 7 600, 43790, 93149, 65117 #### [facility] [address] [place] [address] Claims Account Specialist: Rivera Summers MD Globulin (S) [Mass/Vol] 2.3 g/dL Normal 1.9-3.7 [facility] Comment on above: Performed By: #### 7 600, 88034, 97103, 09564 #### [facility] [address] [place] [address] Claims Account Specialist: Rivera Summers MD Glucose [Mass/Vol] 118 mg/dL High 65-99 [facility] Comment on above: Result Comment: Fasting reference interval For someone without known diabetes, a glucose value between 100 and 125 mg/dL is consistent with prediabetes and should be confirmed with a follow-up test. Performed By: #### 7 600, 21097, 97923, 47439 #### [facility] [address] [address] Claims Account Specialist: Rivera Summers MD Potassium [Moles/Vol] 4.1 mmol/L Normal 3.5-5.3 [facility] Comment on above: Performed By: #### 7 600, 97989, 81683, 73058 #### [facility] [address] [place] [address] Claims Account Specialist: Rivera Summers MD Protein [Mass/Vol] 6.6 g/dL Normal 6.1-8.1 [facility] Comment on above: Performed By: #### 7 600, 78056, 00541, 46283 #### [facility] [address], [address] [place] [address] Claims Account Specialist: Rivera Summers MD Sodium [Moles/Vol] 138 mmol/L Normal 135-146 [facility] Comment on above: Performed By: #### 7 600, 00054, 47100, 17216 #### [facility] [address] [place] [address] Claims Account Specialist: Rivera Summers MD Urea nitrogen [Mass/Vol] 17 mg/dL Normal 7-25 [facility] Comment on above: Performed By: #### 7 600, 87374, 92320, 81297 #### [facility] [place] [address] Claims Account Specialist: Rivera Summers MD LIPID PANEL, [facility] 07-0 Cholesterol [Mass/Vol] 199 mg/dL Normal <200 [facility] Comment on above: Order Comment: FASTI NG:YES FASTING: YES Performed By: #### 7 600, 25537, 36145, 93557 #### [facility] [place] [address] Claims Account Specialist: Rivera Summers MD Cholesterol in HDL [Mass/Vol] 48 mg/dL Low > OR = 50 [facility] Comment on above: Order Comment: FASTI NG:YES FASTING: YES Performed By: #### 7 600, 64346, 14256, 30950 #### [facility] [place] [address] Claims Account Specialist: Rivera Summers MD Cholesterol in LDL [Mass/Vol] [...] LDL-C. Darren CROCKETT et al. ALEJANDRA. 2013;310(19): 2142-8408 (http://education.Metaversum.TeamStreamz/faq/VRQ305) Performed By: #### 7 600, 46122, 86875, 75013 #### [facility] [address], [address] [place] [address] Claims Account Specialist: Rivera Summers MD Cholesterol.total/Ch olesterol in HDL [Mass ratio] 4.1 {ratio} Normal <5.0 [facility] Comment on above: Order Comment: FASTI NG:YES FASTING: YES Performed By: #### 7 600, 74501, 70474, 00612 #### [facility] [address], [address] [place] [address] Claims Account Specialist: Rivera Summers MD NON HDL CHOLESTEROL 151 mg/dL (calc) High <130 [facility] Comment on above: Order Comment: FASTI NG:YES FASTING: YES Result Comment: For patients with diabetes plus 1 major ASCVD risk factor, treating to a non-HDL-C goal of <100 mg/dL (LDL-C of <70 mg/dL) is considered a therapeutic option. Performed By: #### 7 600, 62792, 70294, 29893 #### [facility] [place] [address] Claims Account Specialist: Rivera Summers MD Triglyceride [Mass/Vol] 68 mg/dL Normal <150 [facility] Comment on above: Order Comment: FASTI NG:YES FASTING: YES Performed By: #### 7 600, 55149, 73695, 25497 #### [facility] [address], [address] [place] [address] Claims Account Specialist: Rivera Summers MD SARS CoV 2 SEROLOGY [...] providers and patients using the following websites: [employer]/home/Covid-19/HCP/antibody/fact-sheet2 [employer]/home/Covid-19/Patients/antibody/fact-sheet2 [employer]/home/Covid-19/HCP/antibody/fact-sheet6 [employer]/home/Covid-19/Patients/antibody/fact-sheet6 These tests have been authorized by the FDA under an Emergency Use Authorization (EUA) for use by authorized laboratories. The FDA authorized fact sheets are available on the [employer] website: www.Metaversum.TeamStreamz/Covid19. For additional information please refer to http://education.[employer].TeamStreamz/faq/WYC945 (This link is being provided for informational/ educational purposes only.) Performed By: #### 7 821, 22044, 41735, 29992 #### [facility] [address], [address] [place] [phone] Claims Account Specialist: Rivera Summers MD SARS-CoV-2 (COVID-19) IgM Ab [Presence] in Serum, Plasma or Blood by Rapid immunoassay Negative Normal NEGATIVE [employer] Comment on above: Result Comment: Reference range: [...] providers and patients using the following websites: [employer]/Covid-19/HCP/antibody/fact-sheet2 [employer]/home/Covid-19/Patients/antibody/fact-sheet2 [employer]/home/Covid-19/HCP/antibody/fact-sheet6 [employer]/Covid-19/Patients/antibody/fact-sheet6 These tests have been authorized by the FDA under an Emergency Use Authorization (EUA) for use by authorized laboratories. The FDA authorized fact sheets are available on the [employer] website: www.Metaversum.TeamStreamz/Covid19. For additional information please refer to http://education.[employer].TeamStreamz/faq/DBV013 (This link is being provided for informational/ educational purposes only.) Performed By: #### 7 704, 92538, 84058, 05907 #### [facility] [address] [facility], [address] [place] [address] Claims Account Specialist: Rivera Summers MD VITAMIN D,25-OH,TOTAL,IAon 0 12-01-2020 VITAMIN D,25-OH,TOTAL,IA 71 ng/mL Normal 30-100 [facility] Comment on above: Result Comment: Sherrie min D Status 25-OH Vitamin D: Deficiency: <20 ng/mL Insufficiency: 20 - 29 ng/mL Optimal: > or = 30 ng/mL For 25-OH Vitamin D testing on patients on D2-supplementation and patients for whom quantitation of D2 and D3 fractions is required, the QuestAssureD(TM) 25-OH VIT D, (D2,D3), LC/MS/MS is recommended: order code 93818 (patients >2yrs). See Note 1 Note 1 For additional information, please refer to http://education.Super[employer]/faq/ZST386 (This link is being provided for informational/ educational purposes only.) Performed By: #### 7 600, 48799, 85468, 58322 #### [facility] [address] [facility], [address] [place] [address] Claims Account Specialist: Rivera Summers MD Vital Signs Date Time Vital Sign Value Performing Clinician Harinder boyle 11-19-2023 10:05-0400 Body height 164 cm Rodrick Patton MD Work Phone: [facility] 11-19-2023 10:05-0400 Body mass index (BMI) [Ratio] 23.91 kg/m2 Rodrick Patton MD Work Phone: [facility] 11-19-2023 10:05-0400 Body temperature 97.39 [degF] Rodrick Patton MD Work Phone: [facility] 11-19-2023 10:05-0400 Body weight 64.3 kg Rodrick Patton MD [facility]: [facility] [facility] 11-19-2023 10:05-0400 Diastolic blood pressure 77 mm[Hg] Rodrick Patton MD Work Phone: [facility] 11-19-2023 10:05-0400 Heart rate 66 /min Rodrick Patton MD Work Phone: [facility] 11-19-2023 10:05-0400 Respiratory rate 16 /min Rodrick Patton MD Work Phone: [facility] 11-19-2023 10:05-0400 SaO2% (BldA) [Mass fraction] 99 % Rodrick Patton MD Work Phone: [facility] 11-19-2023 10:05-0400 Systolic blood pressure 140 mm[Hg] Rodrick Patton MD Work Phone: [facility] 05-16-2022 10:13-0500 Body height 164 cm Rodrick Patton MD Work Phone: [facility] 05-16-2022 10:13-0500 Body temperature 97.7 [degF] Rodrick Patton MD Work Phone: [facility] 05-16-2022 10:13-0500 Body weight 63.96 kg Rodrick Patton MD Work Phone: [facility] 05-16-2022 10:13-0500 Diastolic blood pressure 83 mm[Hg] Rodrick Patton MD Work Phone: [facility] 05-16-2022 10:13-0500 Heart rate 71 /min Rodrick Patton MD Work Phone: [facility] 05-16-2022 10:13-0500 Respiratory rate 16 /min Rodrick Patton MD Work Phone: [facility] 05-16-2022 10:13-0500 SaO2% (BldA) [Mass fraction] 98 % Rodrick Patton MD Work Phone: [facility] 05-16-2022 10:13-0500 Systolic blood pressure 118 mm[Hg] Rodrick Patton MD Work Phone: [facility] Encounters Encounter Date Encounter Type Care Provider Facility Start: 02-16-2024 End: 02-16-2024 ambulatory Rodrick Patton MD Work Phone: Hematology/Oncology Comment on above: Tests Start: 02-13-2024 End: 02-13-2024 Telephone encounter Rodrick Patton MD Work Phone: [facility] Comment on above: Appointment Start: 01-20-2024 End: 01-20-2024 ambulatory ANNE-MARIE AGUIRRE Not Available Start: 01-11-2024 Refill Samson Siegel APRN.ARMATURE WINDER REPAIR HELPER Work Phone: [facility] Comment on above: Refill Request Start: 11-19-2023 End: 11-19-2023 ambulatory RODRICK PATTON Facility:[facility] Start: 11-19-2023 End: 11-19-2023 Office outpatient visit 25 minutes Rodrick Patton MD Work Phone: Hematology/Oncology Comment on above: 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) (Primary Dx); Aromatase inhibitor use Start: 09-10-2023 End: 09-10-2023 ambulatory ANNE-MARIE AGUIRRE Not Available Start: 07-16-2023 Patient encounter procedure [facility] Provider [facility] Department Start: 07-15-2023 ambulatory Rodrick rivera MD Work Phone: Hematology/Oncology Comment on above: Dental Work Start: 07-15-2023 Telephone encounter Kostas Sheppard Hematology/Oncology Comment on above: [place] Start: 05-15-2023 End: 05-15-2023 ambulatory RODRICK PATTON Facility:[facility] Start: 11-29-2022 Refill Samson Siegel APRN.ARMATURE WINDER REPAIR HELPER Work Phone: Laboratory Medicine Comment on above: Refill Request Start: 09-06-2022 Encounter for genera l adult medical examination without abnormal findings KAMILA AGUIRRE [facility] Start: 08-29-2022 End: 03-31-2023 Encounter for general adult medical examination without abnormal findings KAMILA AGUIRRE Facility:[facility] Start: 08-29-2022 End: 08-30-2022 ambulatory KAMILA AGUIRRE Facility:[facility] Start: 08-14-2022 End: 08-15-2022 ambulatory RODRICK PATTON Facility:[facility] Start: 05-23-2022 End: 05-23-2022 ambulatory KAMILA AGUIRRE Facility:[facility] Start: 05-16-2022 End: 05-16-2022 ambulatory Rodrick Patton MD Work Phone: Hematology/Oncology Comment on above: 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) (Primary Dx) Start: 05-16-2022 End: 05-16-2022 Patient encounter procedure Rodrick Patton MD Work Phone: [facility] Start: 05-13-2022 Telephone encounter Rodrick rodríguez MD Work Phone: Hematology/Oncology Comment on above: Lab Orders Start: 04-29-2022 Telephone encounter Debra Lee [facility] Work Phone: Hematology/Oncology Comment on above: Medication Problem ( Delia requesting auth be with drawn for Prolia) Start: 04-09-2022 ambulatory KAMILA AGUIRRE Facil ity:[facility] Start: 01-22-2022 End: 01-23-2022 ambulatory KAMILA AGUIRRE Facility:[facility] Start: 12-25-2021 End: 12-26-[address] RANJANA ZHANG Facility:[facility] Start: 11-20-2021 End: 05-21-2022 ambulatory KAMILA AGUIRRE Facility:[facility] Plan of Treatment Date Care Activity Detail Author Start: 05-16-2025 DIABETES SCREEN DIABETES SCREEN [facility] Start: 05-16-2025 Diabetes Screening Diabetes Screenin g [facility] Start: 11-22-2024 DIABETES SCREEN DIABETES SCREEN [facility] Start: 05-20-2024 End: 08-19-2024 Cancer Ag 15-3 [Units/volume] in Serum or Plasma CA 15-3 BLD Lab Routine Invasive ductal carcinoma of left breast (HCC) Aromatase inhibitor use Expected: 05/20/2024 (Approximate), Expires: 08/19/2024 [facility] Comment on above: Expected: 05/20/2024 (Approximate), Expires: 08/19/2024 Start: 05-20-2024 End: 08-19-2024 Cancer Ag 27-29 [Units/volume] in Serum or Plasma CA 27.29 BLOOD Lab Routine Invasive ductal carcinoma of left breast (HCC) Aromatase inhibitor use Expected: 05/20/2024 (Approximate), Expires: 08/19/2024 [facility] Comment on above: Expected: 05/20/2024 (Approximate), Expires: 08/19/2024 Start: 05-20-2024 End: 08-19-2024 CBC W Auto Differential panel - Blood COMPLETE BLOOD COUNT AND DIFFERENTIAL Lab Routine Invasive ductal carcinoma of left breast (HCC) Aromatase inhibitor use Expected: 05/20/2024 (Approximate), Expires: 08/19/2024 [facility] Comment on above: Expected: 05/20/2024 (Approximate), Expires: 08/19/2024 Start: 05-20-2024 End: 08-19-2024 Comprehensive metabolic 2000 panel - Serum or Plasma COMPREHENSIVE METABOLIC PANEL Lab Routine Invasive ductal carcinoma of left breast (HCC) Aromatase inhibitor use Expected: 05/20/2024 (Approximate), Expires: 08/19/2024 [facility] Work Phone: Comment on above: Expected: 05/20/2024 (Approximate), Expires: 08/19/2024 Start: 05-12-2024 End: 05-12-2024 Follow-up encounter 05/12/2024 10:00 AM EST Visit (SP) Office Hematology/Oncology [address] [place] [address] [place] [address] Rodrick Patton MD [address] [place], [place] [address] [id number] 6 month follow up Hematology/Oncology Comment on above: 6 month follow up Start: 02-16-2024 End: 02-16-2024 Patient encounter procedure 02/16/2024 3:00 PM EDT Office [place] [id number] [employer] insurance [employer] Comment on above: [employer] insurance Start: 02-01-2024 Influenza vaccination Influenza Vacc ine (#1) [facility] Start: 12-07-2023 Screening for malign ant neoplasm of colon [facility] Start: 06-02-2023 Behavioral Health Screening Behavioral Health Screening [facility] Start: 06-02-2023 [facility] Start: 04-21-2023 Shingrix Vaccine (2 of 2) Shingrix Vaccine (2 of 2) [facility] Start: 11-14-2022 End: 05-16-2023 CBC W Auto Differential panel - Blood CBC + DIFF Lab Routine Invasive ductal carcinoma of left breast (HCC) Expected: 11/14/2022 (Approximate), Expires: 05/16/2023 [facility] Work Phone: Comment on above: Expected: 11/14/2022 (Approximate), Expires: 05/16/2023 Start: 11-14-2022 End: 05-16-2023 Comprehensive metabolic 2000 panel - Serum or Plasma COMP METABOLIC PANEL Lab Routine Invasive ductal carcinoma of left breast (HCC) Expected: 11/14/2022 (Approximate), Expires: 05/16/2023 [facility] Work Phone: Comment on above: Expected: 11/14/2022 (Approximate), Expires: 05/16/2023 Start: 11-14-2022 End: 06-15-2023 Diagnostic mammography computer-aided detcj bi DION DIAGNOSTIC BILAT Radiology Routine Invasive ductal carcinoma of left breast (HCC) Expected: 11/14/2022 (Approximate), Expires: 06/15/2023 [facility] Work Phone: Comment on above: Expected: 11/14/2022 (Approximate), Expires: 06/15/2023 Start: 11-13-2022 Urine microalbumin profile [facility] Start: 06-02-2022 [facility] Start: 05-16-2022 End: 05-14-2023 CBC W Auto Differential panel - Blood CBC + DIFF Lab Routine Invasive ductal carcinoma of left breast (HCC) Expected: 05/16/2022 (Approximate), Expires: 05/14/2023 [facility] Work Phone: Comment on above: Expected: 05/16/2022 (Approximate), Expires: 05/14/2023 Start: 05-16-2022 End: 05-14-2023 Comprehensive metabolic 2000 panel - Serum or Plasma COMP METABOLIC PANEL Lab Routine Invasive ductal carcinoma of left breast (HCC) Expected: 05/16/2022 (Approximate), Expires: 05/14/2023 [facility] Work Phone: Comment on above: Expected: 05/16/2022 (Approximate), Expires: 05/14/2023 Start: 03-17-2022 COVID-19 VACCINE (5 - Booster) COVID-19 VACCINE (5 - Booster) [facility] Start: 01-31-2022 Influenza vaccination INFLUENZA (#1) [facility] Start: 2021 RSV Vaccine (1 - 1-d ose 60+ series) RSV Vaccine (1 - 1-dose 60+ series) [facility] Start: 06-05-2021 COVID-19 VACCINE (4 - Booster) COVID-19 VACCINE (4 - Booster) [facility] Start: 06-02-2021 DEPRESSION ASSESSMENT DEPRESSION ASS ESSMENT [facility] Start: 08-25-2020 Screening for malign ant neoplasm of breast Mammogram Screening [facility] Start: 12-22-2011 SHINGRIX VACCINE (1 of 2) SHINGRIX VACCINE (1 of 2) [facility] Start: 2006 COLOGUARD (FIT-DNA) COLOGUARD (FIT-D NA) [facility] Start: 2006 Colonoscopy COLONOSCOPY [facility] Start: 2006 COLORECTAL CANCER SCREENING COLORECTAL CANCER SCREENING [facility] Start: [address] COLONOGRAPHY [facility] Start: 2006 FECAL OCCULT BLOOD FECAL OCCULT BLOO D [facility] Start: 2006 Lipid panel Lipid Screening [facility] Start: 2006 LIPID SCREEN LIPID SCREEN [facility] Start: 2006 Screening for malign ant neoplasm of colon [facility] Start: 2006 SIGMOIDOSCOPY [facility]OSCOPY [facility] Start: 2001 Mammography MAMMOGRAM [facility] Start: 2001 Screening for malign ant neoplasm of breast Mammogram Screening [facility] Start: 12-22-1991 HPV TESTING HPV TESTING [facility] Start: 12-22-1991 Screening for malign ant neoplasm of cervix HPV Testing [facility] Start: 1982 PAP TESTING PAP TESTING [facility] Start: 1982 Screening for malign ant neoplasm of cervix [facility] Start: 12-22-1979 Anxiety Screening Anxiety Screening [facility] Start: 12-22-1979 Depression Screening Depression Scre ening [facility] Start: 12-22-1979 HEPATITIS C SCREENING HEPATITIS C SC [facility] Start: 12-22-1979 Hepatitis C screening Hepatitis C [facility] Start: 12-22-1979 HIV SCREENING HIV SCREENING [facility] Start: 12-22-1979 HIV screening HIV Screening [facility] End: 03-14-2025 PET+CT Whole body Bone W [id number] IV NM PET/CT WHOLE BODY INITIAL Radiology STAT Disorder of bone 1 Occurrences starting 02/13/2024 until 03/14/2025 [facility] Work Phone: Comment on above: 1 Occurrences starti ng 02/13/2024 until 03/14/2025 [facility] Immunizations Immunization Date Immunization Notes Care Provider Dewayne thompson 03-10-2023 influenza virus vacc ine, unspecified formulation Samson Siegel APRN.CNP Work Phone: [facility] 03-15-2021 influenza, injectabl e, quadrivalent, preservative free Debra [facility] Work Phone: [facility] 08-24-2020 COVID-19 original vaccine, age 12+ yr, monovalent ([employer] - PURPLE TOP) [facility] 08-24-2020 COVID-19 vaccine (UNSPECIFIED) Debra Richardson [facility] Work Phone: [facility] 03-13-2020 influenza, injectabl e, quadrivalent, preservative free [facility] 04-29-2017 Influenza, injectabl e, Madin Egnar Canine Kidney, preservative free, quadrivalent Debra Richardson [facility] Work Phone: [facility] 04-19-2016 influenza, seasonal, injectable, preservative free Debra Richardson [facility] Work Phone: [facility] 11-13-2012 tetanus toxoid, redu cyn diphtheria toxoid, and acellular pertussis vaccine, adsorbed Debralouis Richardson [facility] Work Phone: [facility] 05-18-2012 influenza, seasonal, injectable Debralouis Richardson [facility] Work Phone: [facility] Payers Date Payer Category Payer Unknown [facility] [id number] 2021-Present [phone] [place] [id number] Indemnity [id number] 2021 Unknown [id number] 1960 Unknown [id number] 3 1961 Unknown [id number] 3 1961 Unknown [id number] 3 1961 Unknown [id number] 3 1961 Unknown [id number] 3 1961 Unknown [id number] 3 1961 Unknown [id number] 3 1961 Unknown [id number] 3 1961 Unknown [id number] 59 1961 Unknown [id number] 59 1959 Self-pay Social History Date Type Detail Facility Start: 09-20-2019 Tobacco smoking stat us [facility]IS Ex-smoker [facility] History of tobacco use Current smoker [facility] Start: 09-20-2019 Tobacco use and exposure Smoke less tobacco non-user [facility] Start: 11-22-2021 End: 05-15-2023 Alcohol intake Current drinker of alcohol (finding) [facility] Start: 09-20-2019 Alcohol Comment occasional [facility] Start: 1960 Sex Assigned At Not on file [facility] Start: 11-14-2022 End: 05-15-2023 History of Social function [facility] Start: 11-14-2022 End: 05-15-2023 Tobacco use panel [facility] Adult Depression Screening Assessment 0 [facility] Clinical Notes 11-20-2021 to 02-16-2024 Telephone Encounter - Kostas Falk RN - 02/16/2024 2:53 PM EDTTelephone Encounter - Kostas Falk RN - 02/16/2024 2:53 PM EDTTelephone Encounter - Kostas Flak RN - 02/13/2024 1:14 PM EDT Note Date & Type Note Facility 02-16-2024 Telephone encounter Note Called and discussed importance of PFA appt to attempt for pt to remain with our provider at [facility], d/t insurance. She is also aware PET [facility] earlier today for PET to be scheduled. She denies further questions needs or concerns at this time. Kostas Falk RN [facility] 02-16-2024 Miscellaneous Notes Called and discussed importance of PFA appt to attempt for pt to remain with our provider at [facility], d/t insurance. She is also aware PET sent to [facility] earlier today for PET to be scheduled. She denies further questions needs or concerns at this time. Kostas Falk RN documented in this encounter [facility] 02-13-2024 Telephone encounter Note PET order faxed to [facility]; [phone]. Kostas Falk RN [facility] 02-13-2024 Miscellaneous Notes PET order faxed to [facility]; [phone]. Kostas Falk RN Thanks - I will call her later. Spoke to patient & set her up to talk to a PFA on 02/16/2024 at 3 pm. Leny Rothman Cipriano aware pt is unable to come for visit until discussed with PFA, d/t insurance. Pt is need PET ordered and performed at facility that accepts her insurance. Dr Coleman will call and discuss with pt Cipriano: Please review and sign pended WB PET Kostas Falk RN Patient has [place] Azar Plan-Needs to speak to a PFA before she can be scheduled with Dr Patton. Patient is wanting to get a PET scan done at [facility]. Leny Rothman Call rec'd from Anne-Marie Aguirre NP [facility]. Pt seen in December for R Rib pain. Xray showed Rib FX and R Plueral effusion . Pt then c/o R hip pain and Xray showed lesion femur. CT Chest/R Hip completed yesterday. She is requesting Dr Coleman review and follow up with pt. Pt had sent scan reports to Dr Coleman, he is aware and would like to see pt today. Sy Barker, nurse agency manager aware and will have team call to schedule. Nury Bass to obtain records and imaging. Kostas Falk RN documented in this encounter [facility] 02-13-2024 Telephone encounter Note Thanks - I will call her later. [facility] 02-13-2024 Telephone encounter Note Spoke to patient & set her up to talk to a PFA on 02/16/2024 at 3 pm. Leny Rothman [facility] 02-13-2024 Telephone encounter Note Cipriano aware pt is unable to come for visit until discussed with PFA, d/t insurance. Pt is need PET ordered and performed at facility that accepts her insurance. Dr Coleman will call and discuss with pt Cipriano: Please review and sign pended WB PET Kostas Falk RN [facility] 02-13-2024 Telephone encounter Note Patient has [place] Azar Plan-Needs to speak to a PFA before she can be scheduled with Dr Patton. Patient is wanting to get a PET scan done at [facility]. Leny Rothman [facility] 02-13-2024 Telephone encounter Note Call rec'd from Anne-Marie Aguirre NP [facility]. Pt seen in December for R Rib pain. Xray showed Rib FX and R Plueral effusion . Pt then c/o R hip pain and Xray showed lesion femur. CT Chest/R Hip completed yesterday. She is requesting Dr Coleman review and follow up with pt. Pt had sent scan reports to Dr Coleman, he is aware and would like to see pt today. Sy Barker, nurse agency manager aware and will have team call to schedule. Nury Bass to obtain records and imaging. Kostas Falk RN [facility] 11-19-2023 Instructions Rodrick Patton MD - 11/19/2023 10:46 AM EDT RTC in 6 months for labs and exam Prolia in December 2023 - patient will call. next DXA in 11/2024 DXA ordered, reschedule to 11/2024 at [facility]. documented in this encounter [facility] 11-19-2023 History of Presen t illness Narrative Images from the original note were not included. NAME: Tiny Mckenna CLINIC NO.: [id number] DATE OF SERVICE: November 19, 2023 (Rosemary) Some elements in this clinic note that are critical to medical decision making have been carefully reviewed and included from a prior clinic note dated: May 15, 2023 (Rosemary) Referring Provider: Dr. 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 ER positive and MT and HER-2/adalberto were both negative. She completed [...] December 2023 - patient will call. (At [facility]) next DXA in 11/2024 DXA ordered, reschedule to 11/2024 at [facility]. HPI: CASE HISTORY: Reverse Chronological Order 09/27/2023 [...] right breast. 08/26/2019 - Bilateral diagnostic mammography: [facility]. Right breast with mild architectural distortion [...] with Garrett Tumor markers check 11/13/2023 at [facility] were normal All labs normal aside rom [...] restart it after that. 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 She reports some weight gain despite continuing Keto diet and intermittent fasting. She has not been exercising as frequently. I recommended looking out for any signs of RACHEAL. 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 Mammogram in July was negative. Got back from a wonderful trip to [place] and [place]. Updated Visit, May 16, 2022: Returns with Garrett. Survived COVID infection from end of March. Otherwise is doing well. No joint aches or pains from Arimidex. [id number] a few days ago at age 89 so some family stress. Otherwise doing well. Still hasn't been approved for Prolia from January. 11/2020 Prior Dexa c/w osteoporosis - really needs Prolia Updated Visit, November 22, 2021: Delia is 60 and returns for follow up of Left IDC Breast ER+/MT(-) HER-2 ([facility]) 0 ypT1C N0 G3 - [...] 4 for final margin status) Comment: ER MT and HER 2 ancillary studies are pending and will follow in an addendum 4. Left breast mass, additional margin medial, excision: Benign fibroadipose tissue, no residual malignancy present at new margin CANCER CASE SUMMARY Procedure: lumpectomy Specimen laterality: Left Tumor size: 1.5x 1.5 x 1.2 cm Histologic type of invasive carcinoma: ductal Histologic grade: [place] histologic score: 8 Glandular (acinar)/tubular differentiation: 3 [...] ductal carcinoma provisional grade 2-3. ER 80-90%, MT less than 1%, HER-2/adalberto IHC 0 REVIEW [...] Diagnosis Date Breast cancer (HCC) 08/31/2019 Left, ER+MT-, HER2- GERD (gastroesophageal reflux disease) Hypothyroidism Other osteoporosis without current pathological fracture 01/01/2021 Vitamin D deficiency PAST SURGICAL HISTORY Procedure Laterality Date BREAST BIOPSY Bilateral 08/31/2019 CHOLECYSTECTOMY COLONOSCOPY 2010 Social History Tobacco Use Smoking status: Former [...] which included preparing to see the patient, [id number] patient care, completing clinical documentation, obtaining and/or reviewing separately obtained history, performing a medically appropriate examination, counseling and educating the patient/family/caregiver, ordering medications, tests, or procedures, independently interpreting results (not separately reported), communicating results to the patient/family/caregiver, and care coordination (not separately reported). Rodrick Patton MD, CPE Hematology and Oncology Services Provided at: [place], [place] CC: Andreina Jj documented in this encounter [facility] 11-19-2023 Note HNO ID: [id number] Author: RODRICK PATTON MD Service: ? Author Type: Physician Type: Progress Notes Filed: 11/19/2023 19:40 Note Text: NAME: Tiny Mckenna [facility] NO.: [id number] DATE OF SERVICE: November 19, 2023 (Rosemary) Some elements in this clinic note that are critical to medical decision making have been carefully reviewed and included from a prior clinic note dated: May 15, 2023 (Rosemary) Referring Provider: Dr. David Tamez Additional Clinicians involved in Tiny Thompson Mckenna's care: Andreina Castro Michael Grillis DIAGNOSIS: Left IDC Breast ER+/MT(-) HER-2 (I[facility]) 0 ypT1C N0 G3 ASSESSMENT: 62 year old woman with Left IDC Breast ER+/MT(-) HER-2 (I[facility]) 0 ypT1C N0 G3 - [...] ductal carcinoma in situ. ER positive and MT and HER-2/adalberto were both negative. She completed [...] December 2023 - patient will call. (At [facility]) next DXA in 11/2024 DXA ordered, [facility] [facility] HPI: CASE HISTORY: Reverse Chronological Order 09/27/2023 [...] right breast. 08/26/2019 - Bilateral diagnostic mammography: [facility]. Right breast with mild architectural distortion [...] with Garrett Tumor markers check 11/13/2023 at [facility] were normal All labs normal aside rom [...] restart it after that. 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 She re (more content not included)... [facility] 11-19-2023 Nurse Note Patient had labs at [place] they are in Care Everywhere. Heavenly Trejo MA [facility] 11-19-2023 Nurse Note Patient had labs at [place] they are in Care Everywhere. Heavenly Trejo MA documented in this encounter [facility] 07-16-2023 Miscellaneous Notes Note completed, review and signed. Faxed to Dr Resendiz office. Kostas Falk RN She can proceed from my standpoint as long as you take precautions in wound healing for her jaw which I'm sure you're aware of. Just add that line and should be great - Thanks! Pt sent MyChart with [facility] information: The calculation clerk is Dr Aidan Resendiz, phone is [phone] email is [email or web address] I have another consultation with him on [...] like any changes. documented in this encounter [facility] 05-15-2023 Note HNO ID: [id number] Author: Rodrick Patton MD Service: ? Author Type: Physician Type: Progress Notes Filed: 05/15/2023 8:36 PM Note Text: NAME: Tiny Mckenna CLINIC NO.: [id number] DATE OF SERVICE: May 15, 2023 (Rosemary) Some elements in this clinic note that are critical to medical decision making have been carefully reviewed and included from a prior clinic note dated: November 14, 2022 (Rosemary) Referring Provider: Dr. 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 ER positive and MT and HER-2/adalberto were both negative. She completed [...] 12/2023 DXA ordered, scheduled for 12/2023 at [facility]. HPI: Case History: 06/05/2020- 11/13/2020: adjuvant [...] the right breast. 08/26/2019 bilateral diagnostic mammography: [facility]. Right breast with mild architectural distortion [...] restart it after that. 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 Mammogram in July was negative. Got back from a wonde (more content not included)... [facility] 11-29-2022 Miscellaneous Notes The following approved medication requests have been transmitted electronically. Requested Prescriptions Signed Prescriptions Disp Refills anastrozole (ARIMIDEX) 1 mg tablet 90 tablet 3 Sig: TAKE 1 TABLET ONCE DAILY Authorizing Provider: SAMSON SIEGEL APRN.ARMATURE WINDER REPAIR HELPER documented in this encounter [facility] 05-16-2022 Instructions Rodrick Patton MD - 05/16/2022 11:08 AM EST Mammograms in [facility] - in 6 months Please obtain labs same day at [facility]. RTC in 6 months to review mammogram and labs, examine - 30 mins Continue Anastrozole. Prolia when approved - at [facility] and then every 6 months Will order Dexa at next visit. documented in this encounter [facility] 05-16-2022 History of Presen t illness Narrative Images from the original note were not included. NAME: Tiny Mckenna [facility] NO.: [id number] DATE OF SERVICE: May 16, 2022 (Rosemary) [...] year old woman with Left IDC Breast ER+/MT(-) HER-2 ([facility]) 0 ypT1C N0 G3 - [...] ductal carcinoma in situ. ER positive and MT and HER-2/adalberto were both negative. She completed [...] Repeat Dexa in 11/2022 PLAN: Mammograms in [facility] - in 6 months Please obtain labs same day at [facility]. RTC in 6 months to review mammogram and labs, examine - 30 mins Continue Anastrozole. Prolia when approved - at [facility] and then every 6 months Will [...] No joint aches or pains from Arimidex. [id number] a few days ago at age 89 so some family stress. Otherwise doing well. Still hasn't been approved for Prolia from January. 11/2020 Prior Dexa c/w osteoporosis - really needs Prolia Updated Visit, November 22, 2021: Delia is 60 and returns for follow up of Left IDC Breast ER+/MT(-) HER-2 ([facility]) 0 ypT1C N0 G3 - [...] right breast. 1. 08/26/2019 bilateral diagnostic mammography: [facility]. - Right breast with mild architectural [...] 4 for final margin status) Comment: ER MT and HER 2 ancillary studies are pending [...] ductal carcinoma provisional grade 2-3. ER 80-90%, MT less than 1%, HER-2/adalberto IHC 0 REVIEW [...] Diagnosis Date Breast cancer (HCC) 08/31/2019 Left, ER+MT-, HER2- GERD (gastroesophageal reflux disease) Hypothyroidism Other [...] which included preparing to see the patient, oirk-fa-oeqk patient care, completing clinical documentation, performing a medically appropriate examination, counseling and educating the patient/family/caregiver, ordering medications, tests, or procedures, independently interpreting results (not separately reported) and communicating results to the patient/family/caregiver. Rodrick Patton MD, CPE [facility] [place], [place] CC: Dr. Jef Carmona Haley Andreina Person documented in this encounter [facility] 05-13-2022 Miscellaneous Notes If needed, place lab orders for 05/16/22. Magdalena Chacon Ma documented in this encounter [facility] 04-29-2022 Miscellaneous Notes Received call from Tiny requesting that authorization be withdrew for Prolia so she may obtain injections at a different sight of care. Patient provided phone number opt 2 Call placed and request submitted by Dav Richardson rPh. Reference # for request: [id number] provided by Jude Baron Call placed back to Tiny to give her the reference number. Dav Richardson rPh documented in this encounter [facility] 01-22-2022 Note PROCEDURE: XR FOOT [...] authenticated by: RANJANA ZHANG Date: 2022-01-22 17:10 [facility] 12-26-2021 Note PROCEDURE: XR FOOT R T [...] authenticated by: RANJANA ZHANG Date: 2021-12-26 06:57 [facility] 11-20-2021 Note PROCEDURE: XR FOOT R T [...] authenticated by: RANJANA ZHANG Date: 2021-11-20 09:43 [facility] Evaluation note Diagnosis Invasive ductal carcinoma of left breast (HCC)- Primary [facility] Diagnosis Invasive ductal carcinoma of left breast (HCC)- Primary [facility] [place] [facility]* Diagnosis Invasive ductal carcinoma of left breast (HCC) documented in this encounter [facility]* Diagnosis Invasive ductal carcinoma of left breast (HCC)- Primary Aromatase inhibitor use Use of aromatase inhibitors [facility] [place] Diagnosis Invasive ductal carcinoma of left breast (HCC) [facility] [place] [facility]* Diagnosis Disorder of bone- Primary Disorder of bone and cartilage, unspecified documented in this encounter [facility] for referral (narrative)* Diagnostic Procedure Only (Routine) - Waiting for Response Specialty Diagnoses / Procedures Referred By Rosalee t Referred To Contact [facility] Diagnoses Invasive ductal carcinoma of left breast (HCC) Procedures DION DIAGNOSTIC BILAT DIAGNOSTIC MAMMOGRAPHY COMPUTER-AIDED DETCJ Rodrick rFancis MD [address] [place] [address] [place] [address] [facility] [address] [place] [id number] Referral ID Status Reason Start Date Expiration Date Visits Requested Visits Authorized [id number] Waiting for Response Auto-Generat ed Referral 11/14/2022 06/15/2023 1 1 [facility] Diagnostic Procedure Only (Urgent) - New Request Specialty Diagnoses / Procedures Referred By Rosalee ye Referred To Contact [facility]LEC[facility] FUNCTIONAL IMAGING Diagnoses Disorder of bone Procedures NM PET/CT WHOLE BODY INITIAL PET IMAGING FOR CT ATTENUATION WHOLE BODY Rodrick Patton MD [address] [place] [address] [place] [address] [facility] [address] [place], [place] [id number] Referral ID Status Reason Start Date Expiration Date Visits Requested Visits Authorized [id number] New Request Auto-Generat ed Referral 02/13/2024 03/14/2025 1 1 [facility] Summary Purpose Family History No [...] CREATED AUTHOR AUTHOR'S ORGANIZ ATION 09/06/2022 [facility] DATE CREATED AUTHOR AUTHOR'S ORGANIZ ATION 01/22/2024 [facility] EPIC DATE CREATED AUTHOR AUTHOR'S ORGANIZ ATION 02/18/2024 [facility] Source Comments (unrecognize d section and content) In the event this informatio n is protected by the Federal Confidentiality of Alcohol and Drug Abuse Patient Records regulations: The Federal rules restrict any use of the information to criminally investigate or prosecute any alcohol or drug abuse patient.[facility] the event this information is protected by the Federal Confidentiality of Alcohol and Drug Abuse Patient Records regulations: The Federal rules restrict any use of the information to criminally investigate or prosecute any alcohol or drug abuse patient.[facility] the event this information is protected by the Federal Confidentiality of Alcohol and Drug Abuse Patient Records regulations: The Federal rules restrict any use of the information to criminally investigate or prosecute any alcohol or drug abuse patient.[facility] the event this information is protected by the Federal Confidentiality of Alcohol and Drug Abuse Patient Records regulations: The Federal rules restrict any use of the information to criminally investigate or prosecute any alcohol or drug abuse patient.[facility] the event this information is protected by the Federal Confidentiality of Alcohol and Drug Abuse Patient Records regulations: The Federal rules restrict any use of the information to criminally investigate or prosecute any alcohol or drug abuse patient.[facility] the event this information is protected by the Federal Confidentiality of Alcohol and Drug Abuse Patient Records regulations: The Federal rules restrict any use of the information to criminally investigate or prosecute any alcohol or drug abuse patient.[facility] the event this information is protected by the Federal Confidentiality of Alcohol and Drug Abuse Patient Records regulations: The Federal rules restrict any use of the information to criminally investigate or prosecute any alcohol or drug abuse patient.[facility] the event this information is protected by the Federal Confidentiality of Alcohol and Drug Abuse Patient Records regulations: The Federal rules restrict any use of the information to criminally investigate or prosecute any alcohol or drug abuse patient.[facility] the event this information is protected by the Federal Confidentiality of Alcohol and Drug Abuse Patient Records regulations: The Federal rules restrict any use of the information to criminally investigate or prosecute any alcohol or drug abuse patient.[facility] the event this information is protected by the Federal Confidentiality of Alcohol and Drug Abuse Patient Records regulations: The Federal rules restrict any use of the information to criminally investigate or prosecute any alcohol or drug abuse patient.[facility] the event this information is protected by the Federal Confidentiality of Alcohol and Drug Abuse Patient Records regulations: The Federal rules restrict any use of the information to criminally investigate or prosecute any alcohol or drug abuse patient.[facility] Reason for Visit (unrecogniz ed section and content) Reason Comments Medication Problem Delia requesting auth be with drawn for Prolia Reason Comments Lab Orders Reason Comments Breast Cancer Specialty Diagnoses / Procedures Referred By Rosalee ye Referred To Contact [facility] Diagnoses Invasive ductal carcinoma of left breast (HCC) left breast cancer Procedures OFFICE/OUTPATIENT ESTABLISHED MOD MDM 30-39 MIN consult test and treat Rodrick Patton MD [address] [place] [address] [facility] [place] [address] [place] [address] Referral ID Status Reason Start Date Expiration Date Visits Requested Visits Authorized [id number] Closed Financial Clearance Required - OON Payor OON Notification Letter Patient cleared - OON Required Payment Collected 2 08/14/2022 1 1 Reason Comments Refill Request Reason Comments [facility] Reason Comments Breast Cancer 6 month follow up Specialty Diagnoses / Procedures Referred By Contac t Referred To Contact [facility] Diagnoses Malignant neoplasm of unspecified site of left female breast Procedures OFFICE/OUTPATIENT ESTABLISHED MOD MDM 30-39 MIN Rodrick Patton MD [address] [place] [address] [place] [address] [facility] [address] [place] [address] Referral ID Status Reason Start Date Expiration Date V isits Requested Visits Authorized [id number] Closed Financial Clearance Required - OON Payor OON/Self Pay Override 11/03/2023 06/01/2024 1 1 Reason Comments Appointment Care Teams (unrecognized sec tion and content) Case Repairer Relationship Specialty Start Date End Date David Tamez [address] [place] [address] PCP - General Internal Medicine 09/13/19 Rodrick Patton MD [address] [place] [address] Physician Hematology/Oncology 10/07/19 Stephanie Stovall, SHANNON [address] [place] [address] Specialty Manufacturing Assembler Hematology/Oncology 10/07/19 Samson Siegel APRN.[facility] [address] [place] [address] Nurse Practitioner Hematology/Oncology 10/07/19 Brad Bond MD [address] [place] [address] Physician Radiation Oncology 01/13/20 Case Repairer Relationship Specialty Start Date End Date David Tamez [address] [place] [address] PCP - General Internal Medicine 09/13/19 Rodrick Patton MD [address] [facility] [place] [address] Physician Hematology/Oncology 10/07/19 Stephanie Stovall, SHANNON [address] [facility] [address] [place], [place] [id number] Specialty Manufacturing Assembler Hematology/Oncology 10/07/19 Samson Siegel, TRASH TRUCK DRIVER.[facility] [address] [place] [address] Nurse Practitioner Hematology/Oncology 10/07/19 Brad Bond MD [address] [place] [address] Physician Radiation Oncology 01/13/20 Case Repairer Relationship Specialty Start Date End Date David Tamez [address] [place] [address] PCP - General Internal Medicine 09/13/19 Rodrick Patton MD [address] [facility] [place] [address] Physician Hematology/Oncology 10/07/19 Stephanie Stovall, SHANNON [address] [place] [address] Specialty Manufacturing Assembler Hematology/Oncology 10/07/19 Samson Siegel, TRASH TRUCK DRIVER.[facility] [address] [place] [address] Nurse Practitioner Hematology/Oncology 10/07/19 Brad Bond MD [address] [place] [address] Physician Radiation Oncology 01/13/20 Case Repairer Relationship Specialty Start Date End Date David Tamez [address] [place] [address] PCP - General Internal Medicine 09/13/19 Rodrick Patton MD [address] [facility] [place] [address] Physician Hematology/Oncology 10/07/19 Stephanie Stovall, RN [address] [place] [address] Specialty Manufacturing Assembler Hematology/Oncology 10/07/19 Samson Siegel, TRASH TRUCK DRIVER.ARMATURE WINDER REPAIR HELPER [address] [facility] [place] [address] Nurse Practitioner Hematology/Oncology 10/07/19 Brad Bond MD [address] [place] [address] Physician Radiation Oncology 01/13/20 Case Repairer Relationship Specialty Start Date End Date David Tamez [address] [place] [address] PCP - General Internal Medicine 09/13/19 Rodrick Patton MD [address] [place] [address] [place] [address] Physician Hematology/Oncology 10/07/19 Samson Siegel, TRASH TRUCK DRIVER.ARMATURE WINDER REPAIR HELPER [address] [place] [address] [place] [address] Nurse Practitioner Hematology/Oncology 10/07/19 Brad Bond MD [address] [facility] [place] [address] Physician Radiation Oncology 01/13/20 Case Repairer Relationship Specialty Start Date End Date David Tamez [address] [place] [address] PCP - General Internal Medicine 09/13/19 Rodrick Patton MD [address] [facility] [place] [address] Physician Hematology/Oncology 10/07/19 Samson Siegel, TRASH TRUCK DRIVER.ARMATURE WINDER REPAIR HELPER [address] [place] [address] Nurse Practitioner Hematology/Oncology 10/07/19 Brad Bond MD [address] [place] [place] [address] Physician Radiation Oncology 01/13/20 Case Repairer Relationship Specialty Start Date End Date David Tamez [address] [place] [address] PCP - General Internal Medicine 09/13/19 Rodrick Patton MD [address] [facility] [place] [address] Physician Hematology/Oncology 10/07/19 Samson Siegel, TRASH TRUCK DRIVER.ARMATURE WINDER REPAIR HELPER [address] [facility] [place] [address] Nurse Practitioner Hematology/Oncology 10/07/19 Brad Bond MD [address] [place] [address] Physician Radiation Oncology 01/13/20 Case Repairer Relationship Specialty Start Date End Date David Tamez [address] [place] [address] PCP - General Internal Medicine 09/13/19 Rodrick Patton MD [address] [place] [address] Physician Hematology/Oncology 10/07/19 Samson Siegel, TRASH TRUCK DRIVER.ARMATURE WINDER REPAIR HELPER [address] [place] [address] Nurse Practitioner Hematology/Oncology 10/07/19 Brad Bond MD [address] [facility] [place] [address] Physician Radiation Oncology 01/13/20 Case Repairer Relationship Specialty Start Date End Date Chelsey David Aguero [address] [place] [address] PCP - General Internal Medicine 09/13/19 Rodrick Patton MD [address] [facility] [place] [address] Physician Hematology/Oncology 10/07/19 Samson Siegel, TRASH TRUCK DRIVER.ARMATURE WINDER REPAIR HELPER [address] [place] [address] Nurse Practitioner Hematology/Oncology 10/07/19 Brad Bond MD [address] [facility] [place] [address] Physician Radiation Oncology 01/13/20 Case Repairer Relationship Specialty Start Date End Date David Tamez [address] [place] [address] PCP - General Internal Medicine 09/13/19 Rodrick Patton MD [address] [place] [address] Physician Hematology/Oncology 10/07/19 Samson Siegel APRN.ARMATURE WINDER REPAIR HELPER [address] [facility] [place] [address] Nurse Practitioner Hematology/Oncology 10/07/19 Brad Bond MD [address] [facility] [place] [address] Physician Radiation Oncology 01/13/20 FOR RECORDS PERTAINING [...] BE BASED ON THE PRIMARY CLINICAL RECORDS. [facility]. provides no warranty or guarantee of the accuracy or completeness of information in this document.
--- NOTE | 2024-02-19 08:53 | CA_ITS ---
Patient Name: SAMPSON MCKENNA MR#: [id number] : 1960 Exam Date: 02/19/2024 Ordering Doctor: KAMILA Aguirre CNP ECHOCARDIOGRAM REPORT PROCEDURE: CA ECHO DOPPLER COMPLETE INDICATIONS: Pericardial effusion, pleural effusion, Hx: Breast cancer COMPARISON: None. DESCRIPTION: COMPLETE ECHOCARDIOGRAM Real-time transthoracic echocardiography with 2D, M-mode, spectral and color flow Doppler performed. QUALITY: Technical quality was good. LEFT VENTRICLE: Normal chamber size. Normal left ventricular wall thickness. LV EF: Global left ventricular systolic function is hyperdynamic. Calculated left ventricular ejection fraction is 67%. No significant wall motion abnormalities. DIASTOLIC: Diastolic function is indeterminate. ATRIAL SEPTUM: Inadequately seen. LEFT ATRIUM: Normal chamber size. RIGHT ATRIUM: Normal chamber size. RIGHT VENTRICLE: Normal chamber size. Normal right ventricular systolic function. TRICUSPID VALVE: Normal mobility and thickness. No stenosis with mild regurgitation. Mild pulmonary hypertension. RVSP 36mmHg MITRAL VALVE: Normal mobility and thickness. No evidence of mitral valve stenosis. There is no mitral annular calcification. Trivial mitral regurgitation. AORTIC VALVE: Normal trileaflet appearance. No visible sclerosis. Normal leaflet mobility. No evidence of aortic valve stenosis. No aortic regurgitation. AORTIC ROOT: Normal diameter and appearance. PULMONIC VALVE: Normal thickness and mobility. No stenosis. Trivial regurgitation. PERICARDIUM: Moderate to large circumferential pericardial effusion. Doppler measurements are not consistent with tamponade physiology IVC: Collapses with inspirations. Normal size. PLEURA: Moderate pleural effusion. CONCLUSION: 1. Global left ventricular systolic function is hyperdynamic; visually estimated ejection fraction is 65 to 70% 2. Normal right ventricular size and systolic function 3. Systolic function is indeterminate 4. Mild tricuspid regurgitation 5. Mildly elevated right ventricular systolic pressure; RVSP 36 mmHg 6. No significant valvular abnormalities 7. A moderate to large circumferential pericardial effusion is seen; Doppler measurements do not suggest tamponade physiology 8. A pleural effusion is seen Adult Echocardiography Procedure Report Left Ventricle LVEDD (3.7 - 5.6 cm): 3.81 cm LVESD (2.2 - 4.0 cm): 2.65 cm LVIVS thickness (0.6 - 1.2 cm): 1.08 cm LVPW thickness (0.5 - 1.0 cm): 0.92 cm e': 0.07 m/s E - e': 8.22 LVOT Max Gradient: 2.38 mm[Hg] LVOT Area (cm2): 0.77 m/s Peak Velocity (LVOT): 0.77 m/s Mean Velocity (LVOT): 0.57 m/s LVOT Diameter 1.98 cm Left Ventricular Ejection Fraction: 67.22 % Left Atrium LA Volume Index (2D A2C): 18.63 ml/m2 Left Atrium Systolic Dimension: 2.87 cm Mitral Valve MV E to A Ratio: 0.73 Mitral Valve A-Wave Peak Velocity: 0.83 m/s Mitral Valve E-Wave Peak Velocity: 0.61 m/s Right Ventricle RV Internal Diastolic Dimension: 3.48 cm Aorta AO Root Diam: 3.13 cm Ascending Ao Diam: 2.60 cm Aortic Valve AoV Area (Peak Christiano): 2.03 cm2, 2.03 cm2 AoV Area (VTI): 2.16 cm2, 2.16 cm2 Peak Velocity(Antegrade Flow): 1.17 m/s Peak Gradient(Antegrade Flow): 5.47 mm[Hg] Mean Velocity(Antegrade Flow): 0.80 m/s Mean Gradient(Antegrade Flow): 2.98 mm[Hg] Velocity Time Integral: 27.25 cm Tricuspid Valve Peak Velocity (Regurgitant Flow): 1.85 m/s, 2.85 m/s Pulmonic Valve Peak Velocity: 0.77 m/s Peak Gradient: 2.31 mm[Hg], 2.40 mm[Hg] Right Atrium Right Atrium Systolic Pressure: 55.36 ml, 55.36 ml Dictated by: Karissa Spence M.D. on 02/20/2024 at 12:52 Approved by: Karissa Spence M.D. on 02/20/2024 at 13:00
== END 2024-02-19 08:45 | disposition home or self-care (01) ==
LOC: CARD 08:44
PROVIDERS: PCP Nurse Practitioner; Visit Provider Nurse Practitioner
DX: I31.39 Other pericardial effusion (noninflammatory) (principal)
CPT/HCPCS: 93306

== ENCOUNTER 2024-03-25 14:35 | Emergency (ER) | payer OTHER, SELFPAY ==
[2024-03-25] VITALS (30 sets, daily range): BP systolic 124–151; BP diastolic 82–102; PULSE 85–115; TEMP 36.8; O2SAT 94–99; BMI 24.8
--- NOTE | 2024-03-25 15:06 | ECG_ITS ---
[facility] Test Date: 2024-03-25 Pat Name: SAMPSON MCKENNA Department: Room: - Gender: Female Mobile Application Developer: : 1960 Requested By: CURTIS ANDRADE Order Number: [id number] Reading MD: HILARIO MACIAS Measurements Intervals [place] Rate: 99 P: 49 [place]: 152 QRS: 97 QRSD: 76 T: 60 QT: 322 QTc: 379 Interpretive Statements 1100 Sinus rhythm 4068 Nonspecific [place] abnormality 7102 Moderate right axis deviation 9130 borderline ECG No previous ECG available for comparison Electronically Signed On 03-26-2024 6:47:49 EDT by HILARIO MACIAS
--- NOTE | 2024-03-25 15:12 | CT_ITS ---
[address] [address] Patient Name: SAMPSON MCKENNA MRN: [id number] date: 1960 Sex: F Assigned Patient Location: ER Current Patient Location: Accession/Order Number: [id number] Exam Date: 03/25/2024 16:32 Report Date: 03/25/2024 17:16 At the request of: KOSTAS ABAD Procedure: CT angio chest EXAM: CT angio chest HISTORY: Pulmonary embolism COMPARISON: 02/11/2024 TECHNIQUE: CT chest with intravenous contrast was performed with timing for the evaluation for pulmonary arteries. Multiplanar reformats were performed. MIP (maximum intensity projection) images or 3D post processing was performed. Dose reduction techniques were achieved by using automated exposure control and/or adjustment of mA and/or kV according to patient size and/or use of iterative reconstruction technique. FINDINGS: Lungs: No pneumothorax. Large right pleural effusion with right upper, middle and lower lobe atelectasis and/or consolidation. Mild bilateral centrilobular emphysema. Airways: Normal. Mediastinum: No adenopathy. Aorta: No aneurysm. Cardiac: Normal size. Small pericardial effusion. Pulmonary vasculature: Diagnostic opacification of pulmonary arteries without evidence of pulmonary embolus. Normal morphology. Bones: No acute bony abnormality. Axilla: No adenopathy. Thyroid gland: No abnormality demonstrated on provided imaging. Soft tissues: Unremarkable. Upper abdomen: Unremarkable. Additional findings: None. CT/CT angio chest IMPRESSION: No evidence of pulmonary embolus. Large right pleural effusion with right upper, middle and lower lobe atelectasis and/or consolidation Small pericardial effusion. Electronically authenticated by: RENEE FLORES Date: 03/25/2024 17:16
--- NOTE | 2024-03-25 15:15 | ED_ITS ---
HPI - SOB/Dyspnea General Chief Complaint: Shortness of Breath/Dyspnea Stated Complaint: SOB Time Seen by Provider: 03/25/24 15:04 Source: patient Mode of arrival: walk-in Limitations: no limitations History of Present Illness HPI Narrative: Patient is a 63-year-old female with a history of left breast, lung, and bone cancer who presents to the emergency department with her for evaluation of worsening shortness of breath. Patient was seen by pulmonology at the beginning of this month for a pleural effusion and had a thoracentesis performed. She was recently admitted to [facility] in [place] for evaluation of a lesion in her right femur and had a myrna placed. She has had some pain to the right hip which is controlled and has been present since surgery. She was discharged 4 days ago. She states while in the hospital she was noted to have hypoxia at nighttime and was sleeping and was placed on oxygen while in the hospital but was not discharged with any oxygen. She states she has had continued shortness of breath for the last 3 to 4 days with no fevers, chest pain, vomiting or other upper respiratory symptoms. Related Data Home Medications ?Medication ?Instructions ?Recorded ?Confirmed anastrozole 1 mg tablet mg 12/05/22 biotin 10,000 mcg chewable tablet mcg PO 12/05/22 calcium 12/05/22 famotidine 20 mg tablet mg 12/05/22 fexofenadine 180 mg tablet 180 mg PO DAILY 12/05/22 12/05/22 (Laura Allergy) levothyroxine 75 mcg tablet 75 mcg PO DAILY 12/05/22 12/05/22 (Euthyrox) magnesium oxide 400 mg PO DAILY 12/05/22 12/05/22 omega 5-siy-ynh-fish oil 1,200 mg cap PO 12/05/22 (144 mg-216 mg) capsule (Fish Oil) vitamin d3 .3 times a week 12/05/22 Allergies Allergy/AdvReac Type Severity Reaction Status Date / Time codeine AdvReac Mild Vomiting Verified 03/25/24 14:55 Review of Systems ROS Constitutional Denies: fever or chills Ears, nose, mouth, and throat Denies: throat pain or nasal congestion Cardiovascular Denies: chest pain Respiratory Reports: shortness of breath; Denies: cough or wheezing Gastrointestinal Denies: nausea or vomiting Musculoskeletal Denies: back pain Integumentary/Breast Denies: rash Neurological Denies: numbness in extremities or weakness in extremities Hematologic/Lymphatic Denies: easy bruising or easy bleeding Exam Narrative Exam Narrative: Gen.: Awake, alert, in no distress Head: Normocephalic, atraumatic ENT: Moist mucous membranes Respiratory: No respiratory distress, tachypnea but able to speak in full sentences, diminished lung sounds to the right base Cardio: Regular rate and rhythm Gastrointestinal: Abdomen is soft, nondistended and nontender to palpation Extremities: Moves extremities equally, no pedal edema Psych: Normal mood and affect Neuro: No focal neuro deficit Skin: Warm, dry, intact Constitutional Vital Signs, click to edit/add: Last Vital Signs Temp 98.3 F 03/25/24 22:42 Pulse 115 H 03/25/24 22:42 Resp 20 03/25/24 22:42 BP 124/82 03/25/24 22:42 Pulse Ox 97 03/25/24 22:42 O2 Del Method Nasal Cannula 03/25/24 22:42 O2 Flow Rate 2 03/25/24 22:42 Course Vital Signs Vital signs: Vital Signs Temperature 98.3 F 03/25/24 14:55 Pulse Rate 113 H 03/25/24 14:55 Respiratory Rate 20 03/25/24 14:55 Blood Pressure 130/90 03/25/24 14:55 Pulse Oximetry 94 L 03/25/24 14:55 Oxygen Delivery Method Room Air 03/25/24 14:55 Temperature 98.3 F 03/25/24 22:42 Pulse Rate 115 H 03/25/24 22:42 Respiratory Rate 20 03/25/24 22:42 Blood Pressure 124/82 03/25/24 22:42 Pulse Oximetry 97 03/25/24 22:42 Oxygen Delivery Method Nasal Cannula 03/25/24 22:42 Oxygen Delivery Flow Rate 2 03/25/24 22:42 MDM - SOB/Dyspnea MDM Narrative Medical decision making narrative: Patient was placed on oxygen by nasal cannula for comfort at 2 L. Laboratory studies reviewed and noted within normal limits. CT angio of the chest shows a large pleural effusion. Patient is stable at baseline at rest, she has tachypnea and increased work of breathing with movement. She is not hypoxic at rest. Oxygen was placed for comfort, she is otherwise hemodynamically stable with increased respiration. I discussed CT findings with the patient and her . They were made aware that it is in the patient's best interest to be transferred to a facility that has pulmonology for thoracentesis. I attempted to contact her gas plumber, Dr. Craig, who is out of town and unavailable. I offered the patient and her to transfer to a facility of their choosing, they prefer not to go back to [facility] for thoracentesis and would like to be treated locally for this. They request transfer to [facility]. Initially placed a call to the hospitalist service at [phone], we received a call back from Dr. Benitez at [phone] who accepted the patient for transfer. Patient is stable at time of transfer. Critical care time 35 minutes. SUPERVISED APC VISIT, PHYSICIAN ATTESTATION: Based on the medical record the care appears appropriate. ? Medical Records Attestation: I reviewed the patient's medical records. Lab Data Attestation: I reviewed the patient's lab results. Labs: Lab Results 03/25/24 03/25/24 Range/Units 15:24 15:25 WBC 9.1 (4.0-11.0) 10^3/uL RBC 3.56 L (4.20-5.40) 10^6/uL Hgb 10.5 L (12.0-16.0) g/dL Hct 31.7 L (36.0-48.0) % MCV 89.0 (81.0-99.0) fL MCH 29.5 (26.7-34.0) pg MCHC 33.1 (29.9-35.2) g/dL RDW 14.2 (11.0-15.0) % Plt Count 467 H (150-450) 10^3/uL MPV 8.8 L (9.5-13.5) fL Neut % (Auto) 68.1 (43.0-75.0) % Lymph % (Auto) 21.2 (20.5-60.0) % [place] % (Auto) 8.7 (1.7-12.0) % Eos % (Auto) 0.8 L (0.9-7.0) % Baso % (Auto) 0.3 (0.2-2.0) % Neut # (Auto) 6.2 (1.4-6.5) 10^3/uL Lymph # (Auto) 1.9 (1.2-3.8) 10^3/uL [place] # (Auto) 0.8 (0.3-0.8) 10^3/uL Eos # (Auto) 0.1 (0.0-0.7) 10^3/uL Baso # (Auto) 0.0 (0.0-0.1) 10^3/uL Abs Immat Gran (auto) 0.08 H (0.00-0.03) 10^3/uL Imm/Tot Granulo (auto) 0.9 H (0.0-0.5) % PT 10.2 (9.0-11.6) sec INR 0.96 VBG pH 7.583 H (7.330-7.430) VBG pCO2 23.8 L (40.0-52.0) mmHg Sodium 139 (136-145) mmol/L Potassium 3.8 (3.5-5.1) mmol/L Chloride 101 (98-107) mmol/L Carbon Dioxide 23.8 (21.0-32.0) mmol/L Anion Gap 18.0 BUN 18.0 (7.0-18.0) mg/dL Creatinine 0.66 (0.55-1.02) mg/dL Est GFR ( Amer) >60 (>=60 mL/min/1.73m^2) Est GFR (Non-Af Amer) >60 (>=60 mL/min/1.73m^2) BUN/Creatinine Ratio 27.3 Glucose 112 H (74-106) mg/dL Lactate 1.3 (0.4-2.0) mmol/L Calcium 9.5 (8.5-10.1) mg/dL Magnesium 2.0 (1.8-2.4) mg/dL Total Bilirubin 0.7 (0.2-1.0) mg/dL AST 29 (15-37) U/L ALT 23 (14-59) U/L Alkaline Phosphatase 113 (46-116) U/L Troponin I High Sens <4.0 L (4.0-51.3) pg/mL NT-Pro-B Natriuret Pep 87.0 (<=900.0) pg/mL Total Protein 7.0 (6.4-8.2) g/dL Albumin 3.0 L (3.4-5.0) g/dL Globulin 4.0 g/dL Albumin/Globulin Ratio 0.8 Influenza Type A Ag Negative Influenza Type B Ag Negative RSV Antigen Not detected (NOT DETECTE) SARS-CoV-2 Ag (CV2AG) Negative (NEGATIVE) Imaging Data CT scan - chest: Attestation: I have reviewed the pertinent imaging results. Radiologist's impression: ITS Impressions Chest CTA 03/25/24 15:12 IMPRESSION: No evidence of pulmonary embolus. Large right pleural effusion with right upper, middle and lower lobe atelectasis and/or consolidation Small pericardial effusion. Electronically authenticated by: RENEE FLORES Date: 03/25/2024 17:16 ECG Data Attestation: I personally reviewed and interpreted this ECG as follows: (Normal sinus rhythm at a rate of 99, no acute ST elevation or ectopy. EKG reviewed by attending physician) Critical Care Time Critical Care Time Critical Care Time: Yes Total Critical Care Time: 35 Attestation: 35 minutes of critical care time for assessment of large right pleural effusion and multiple phone calls to transfer the patient to tertiary care Discharge Plan Discharge Chief Complaint: Shortness of Breath/Dyspnea Clinical Impression: Pleural effusion on right, Shortness of breath Patient Disposition: [facility] Time of Disposition Decision: 21:49 Discharge Location: [facility] Discharge location: [place] [address] Condition: Good Mode of Transportation: EMS Discharge Date/Time: 03/25/24 23:02
[2024-03-25 15:39] LABS: Basophils Percent Auto 0.3 % (0.2-2.0); Eosinophils Absolute Auto 0.1 10^3/uL (0.0-0.7); Eosinophils Percent Auto 0.8 % (0.9-7.0); Hematocrit 31.7 % (36.0-48.0); Hemoglobin 10.5 g/dL (12.0-16.0); Immature Granulocytes Abs Auto 0.08 10^3/uL (0.00-0.03); Immature Granulocytes Pct Auto 0.9 % (0.0-0.5); Lymphocytes Absolute Auto 1.9 10^3/uL (1.2-3.8); Lymphocytes Percent Auto 21.2 % (20.5-60.0); Mean Corpuscular HGB Conc 33.1 g/dL (29.9-35.2); Mean Corpuscular Hemoglobin 29.5 pg (26.7-34.0); Mean Platelet Volume 8.8 fL (9.5-13.5); Monocytes Absolute Auto 0.8 10^3/uL (0.3-0.8); Monocytes Percent Auto 8.7 % (1.7-12.0); Neutrophils Absolute Auto 6.2 10^3/uL (1.4-6.5); Neutrophils Percent Auto 68.1 % (43.0-75.0); Platelet Count 467 10^3/uL (150-450); Red Blood Count 3.56 10^6/uL (4.20-5.40); Red Cell Distribution Width 14.2 % (11.0-15.0); White Blood Count 9.1 10^3/uL (4.0-11.0)
[2024-03-25 15:42] LABS: pH VBG 7.583 (7.330-7.430)
[2024-03-25 15:43] LABS: PCO2 VBG 23.8 mmHg (40.0-52.0)
[2024-03-25 15:53] LABS: Influenza Virus A Antigen Negative; Influenza Virus B Antigen Negative; Internal Control Within Normal Limits; Respiratory Syncytial Virus Not Detected (NOT DETECTE); SARS-CoV-2 Ag NEGATIVE (NEGATIVE)
[2024-03-25 15:55] LABS: INR 0.96; Prothrombin Time 10.2 sec (9.0-11.6)
[2024-03-25] MEDS: ACETAMINOPHEN 325 MG TABLET 650 MG PO ×2 (15:57→22:36)
[2024-03-25 16:06] LABS: Lactate/Lactic Acid 1.3 mmol/L (0.4-2.0)
[2024-03-25 16:16] LABS: Alanine Aminotransferase 23 U/L (14-59); Albumin Globulin Ratio 0.8; Alkaline Phosphatase 113 U/L (46-116); Aspartate Amino Transferase 29 U/L (15-37); BUN Creatinine Ratio 27.3; Bilirubin Total 0.7 mg/dL (0.2-1.0); Calcium 9.5 mg/dL (8.5-10.1); Carbon Dioxide 23.8 mmol/L (21.0-32.0); Chloride 101 mmol/L (98-107); Estimated GFR (African America >60 (>=60 mL/min/1.73m^2); Estimated GFR (Non-African Ame >60 (>=60 mL/min/1.73m^2); Glucose 112 mg/dL (74-106); Potassium 3.8 mmol/L (3.5-5.1); Sodium 139 mmol/L (136-145); Troponin I High Sensitivity <4.0 pg/mL (4.0-51.3)
[2024-03-25] MEDS: IBUPROFEN 600 MG TABLET PO (18:38)
[2024-03-25] MEDS: IBUPROFEN 200 MG TABLET PO (19:02)
== END 2024-03-25 23:02 | disposition short-term general hospital (02) ==
PROVIDERS: Physician Assistant; Emergency Provider Emergency Medicine; PCP Nurse Practitioner
DX: J90 Pleural effusion, not elsewhere classified (principal); R06.02 Shortness of breath; Z20.822 Contact with and (suspected) exposure to COVID-19; Z85.3 Personal history of malignant neoplasm of breast; Z85.118 Personal history of other malignant neoplasm of bronchus and lung; Z85.830 Personal history of malignant neoplasm of bone
CPT/HCPCS: 36415; 71275; 80053; 82800; 83605; 83735; 83880; 84484; 85025; 85378; 85610; 87040; 87420; 87804; 87811; 93005; 99285; Q9967

== ENCOUNTER 2024-04-08 13:37 | Outpatient (OUT) | payer OTHER, SELFPAY ==
--- NOTE | 2024-04-08 13:50 | CA_ITS ---
Patient Name: SAMPSON MCKENNA MR#: [id number] : 1960 Exam Date: 04/08/2024 Ordering Doctor: DR INES GURROLA M.D. ECHOCARDIOGRAM REPORT PROCEDURE: CA ECHO DOPPLER COMPLETE INDICATIONS: Pericardial effusion, Hx: breat cancer COMPARISON: None. DESCRIPTION: COMPLETE ECHOCARDIOGRAM Real-time transthoracic echocardiography with 2D, M-mode, spectral and color flow Doppler performed. QUALITY: Technical quality was good. LEFT VENTRICLE: Normal chamber size. Mild concentric left ventricular hypertrophy. Mildly hyperdynamic left ventricle without wall motion abnormalities. Visual estimation of left ventricular ejection fraction is hyperdynamic at 70%. LV EF: DIASTOLIC: Indeterminate diastolic function ATRIAL SEPTUM: LEFT ATRIUM: Normal chamber size. RIGHT ATRIUM: Normal chamber size. RIGHT VENTRICLE: Normal chamber size. Normal right ventricular systolic function. TRICUSPID VALVE:Normal mobility and thickness. No stenosis with mild regurgitation. Mild pulmonary hypertension. RVSP 36mmHg MITRAL VALVE: Normal mobility and thickness. No evidence of mitral valve stenosis. There is no mitral annular calcification. Trivial mitral regurgitation. AORTIC VALVE: Normal trileaflet appearance. No visible sclerosis. Normal leaflet mobility. No evidence of aortic valve stenosis. No aortic regurgitation. AORTIC ROOT: Normal diameter and appearance. PULMONIC VALVE:Normal thickness and mobility. No stenosis. Trivial regurgitation. PERICARDIUM: Moderate circumferential pericardial effusion that appears unchanged from previous exam of 02/19/24. Doppler measurements are not consistent with tamponade physiology. IVC: Collapes with inspirations. Normal size. PLEURA: No evidence of pleural effusion. CONCLUSION: Normal left ventricle chamber size. Mild concentric left ventricular hypertrophy. Mildly hyperdynamic left ventricle without wall motion abnormalities. Visual estimation of left ventricular ejection fraction is hyperdynamic at 70%. Indeterminate diastolic function Normal right ventricle chamber size. Normal right ventricular systolic function. Mild pulmonary hypertension. RVSP 36mmHg Mild tricuspid regurgitation Trivial mitral regurgitation. Moderate circumferential pericardial effusion that appears unchanged from previous exam of 02/19/24. Doppler measurements are not consistent with tamponade physiology. Adult Echocardiography Procedure Report Left Ventricle LVEDD (3.7 - 5.6 cm): 3.37 cm LVESD (2.2 - 4.0 cm): 2.24 cm LVIVS thickness (0.6 - 1.2 cm): 1.20 cm LVPW thickness (0.5 - 1.0 cm): 1.04 cm e': 0.07 m/s E - e': 10.82 LVOT Max Gradient: 3.28 mm[Hg] LVOT Area (cm2): 0.90 m/s Peak Velocity (LVOT): 0.90 m/s Mean Velocity (LVOT): 0.54 m/s LVOT Diameter 2.04 cm Left Ventricular Ejection Fraction: 80.49 % Left Atrium LA Volume Index (2D A2C): 16.77 ml/m2 Left Atrium Systolic Dimension: 2.80 cm Mitral Valve MV E to A Ratio: 0.74 MV Max Gradient: MV Mean Gradient: Mitral Valve A-Wave Peak Velocity: 0.97 m/s Mitral Valve E-Wave Peak Velocity: 0.71 m/s Cardiovascular Orifice Area: Right Ventricle RV Internal Diastolic Dimension: 2.62 cm Aorta AO Root Diam: 3.23 cm Ascending Ao Diam: 2.73 cm Aortic Valve AoV Area (Peak [place]): 2.38 cm2, 2.48 cm2 AoV Area (VTI): 2.62 cm2, 2.62 cm2 Deceleration [place]: Pressure Half-Time: Peak Velocity(Antegrade Flow): 1.19 m/s, 1.29 m/s Peak Gradient(Antegrade Flow): 5.67 mm[Hg], 6.63 mm[Hg] Mean Velocity(Antegrade Flow): 0.86 m/s, 0.84 m/s Mean Gradient(Antegrade Flow): 3.33 mm[Hg], 3.25 mm[Hg] Velocity Time Integral: 22.55 cm, 22.51 cm Tricuspid Valve Peak Velocity (Regurgitant Flow): 2.66 m/s, 2.59 m/s, 2.69 m/s, 2.89 m/s Peak Velocity: Pulmonic Valve Mean Gradient: Mean Velocity: Peak Velocity: 0.82 m/s Peak Gradient: 2.60 mm[Hg], 2.78 mm[Hg] Right Atrium Right Atrium Systolic Pressure: 19.41 ml, 19.41 ml Dictated by: Álvaro Wyatt MD on 04/09/2024 at 20:34 Approved by: Álvaro Wyatt MD on 04/09/2024 at 20:44
== END 2024-04-08 13:38 | disposition home or self-care (01) ==
LOC: CARD 13:38
PROVIDERS: PCP Nurse Practitioner; Visit Provider Internal Medicine Interventional Cardiology
DX: I31.39 Other pericardial effusion (noninflammatory) (principal)
CPT/HCPCS: 93306

== ENCOUNTER 2024-06-02 05:04 | Emergency (ER) | payer OTHER, SELFPAY ==
[2024-06-02] VITALS (28 sets, daily range): BP systolic 98–143; BP diastolic 68–91; PULSE 93–111; TEMP 36.4; O2SAT 75–100; BMI 21.3
--- OUTSIDE RECORDS SUMMARY | 2024-06-02 05:17 | XMS_ITS | CCD ---
Author Organization [facility] Informat ion Partnership [facility] Care Team Providers Care Horizontal Resaw Operator Name Role Phone Jason Tamez Primary Care Provider Abdi ROSS, Mark Anthony Unavailable Wilman ORTEGA, Stephanie Unavailable Oren WONGN.BODY FITTER, Sammie Unavailable Varun ROSS, Brad Unavailable MARK ANTHONY PATTON Admitting Unavailable DR LALO TRISTAN Consulting Unavailable ABHYANKAR, MARK ANTHONY Attending Unavailable AICHHOLZ, BODY FITTER CURTIS Primary Care Unavailable ABHYANKAR, MARK ANTHONY Consulting Unavailable AICHHOLZ, BODY FITTER CURTIS Attending Unavailable AICHHOLZ, BODY FITTER CURTIS Consulting Unavailable AICHHOLZ, BODY FITTER CURTIS Primary Care Unavailable AICHHOLZ, BODY FITTER CURTIS Admitting Unavailable AICHHOLZ, BODY FITTER CURTIS Attending Unavailable AICHHOLZ, BODY FITTER CURTIS Consulting Unavailable AICHHOLZ, BODY FITTER CURTIS Primary Care Unavailable AICHHOLZ, BODY FITTER CURTIS Admitting Unavailable AICHHOLZ, BODY FITTER CURTIS Primary Care Unavailable DR RANJANA ZHANG V Consulting Unavailable FAWWAD, ESCOBAR H Admitting Unavailable FAWWAD, ESCOBAR H Attending Unavailable FAWWAD, ESCOBAR H Consulting Unavailable DR RANJANA ZHANG V Consulting Unavailable POOL, GAYATRI Admitting Unavailable AICHHOLZ, BODY FITTER CURTIS Primary Care Unavailable GAYATRI LANZA Attending Unavailable POOL, GAYATRI Consulting Unavailable AICHHOLZ, BODY FITTER CURTIS Attending Unavailable AICHHOLZ, BODY FITTER CURTIS Primary Care Unavailable AICHHOLZ, BODY FITTER CURTIS Admitting Unavailable AICHHOLZ, BODY FITTER CURTIS Attending Unavailable AICHHOLZ, BODY FITTER CURTIS Primary Care Unavailable AICHHOLZ, BODY FITTER CURTIS Consulting Unavailable AICHHOLZ, BODY FITTER CURTIS Admitting Unavailable AICHHOLZ, BODY FITTER CURTIS Primary Care Unavailable DR RANJANA ZHANG V Consulting Unavailable GAYATRI LANZA Admitting Unavailable GAYATRI LANZA Attending Unavailable POOL, GAYATRI Consulting Unavailable Yuhas, Jason Madi Primary Care Provider Yuhas, Jason Madi Primary Care Provider ABHYANKAR, MARK ANTHONY Referring Unavailable YUHASJASON L Primary Care Unavailable Aichholz RESTAURANT CREW, Curtis Unavailable Megha ROSS, Neel Primary Care Provider [phone] Aichholstefano RESTAURANT CREW, Curtis Unavailable DO Shahid Manzano Attending Provider [phone] Unavailable Primary Care Provider Unavailabl e ABHYANKAR, MARK ANTHONY Referring Unavailable YUHAS, JASON MADI Primary Care Unavailable YUHAS, JASON MADI Primary Care Unavailable ABHYANKAR, MARK ANTHONY Referring Unavailable YUHAS, JASON MADI Primary Care Unavailable ABHYANKAR, MARK ANTHONY Referring Unavailable YUHAS, JASON MADI Primary Care Unavailable ABHYANKAR, MARK ANTHONY Attending Unavailable ABHYANKAR, MARK ANTHONY Referring Unavailable YUHAS, JASON MADI Primary Care Unavailable ABHYANKAR, MARK ANTHONY Attending Unavailable Aichholz BODY FITTER, Curtis Unavailable Neri ROSS, Carlos Uriostegui Unavailable Rc RODRIGUES, Davide Bauer Unavailable [phone] NO FAMILY, PHYSICIAN Primary Care Provider Unava MD Black Miles Admit Provider MD Nirav Avila Other Provider [phone] DO Zaheer Day Other Provider ELIAN Ku Other Provider MD Ivana Parikh Other Provider MD Preethi Good Other Provider MD Xavier Hummel Other Provider MD Glory Hardy Other Provider DO Fritz Fisher Other Provider MD Bernardino Robles Other Provider MD Bernardo Wheeler Other Provider MD Ginny Soriano Attending Provider AICHHOLZ, CURTIS Attending Unavailable AICHHOLZ, CURTIS Attending Unavailable AICHHOLZ, CURTIS Attending Unavailable SHAHID MANZANO Attending Unavailable AICHHOLZ, CURTIS Referring Unavailable SHAHID MANZANO Attending Unavailable Shahid Manzano Admitting Unavailable Shahid Manzano Attending Unavailable NO FAMILY, PHYSICIAN Primary Care Unavailable Nirav Avila Consulting Unavaila ble NO FAMILY, PHYSICIAN Primary Care Unavailable Ginny Soriano Attending Unavailable Black Benitez Admitting Unava ilable Zaheer Day Consulting Unavailable Emelina Ku Consulting Unavailable Jl, Basem Consulting Unavailable Preethi Good Consulting Unavaila Xavier Frausto Consulting Unavailable Glory Hardy Consulting Unavailable Fritz Fisher Consulting Unavailable Bernardino Robles Consulting Un available Bernardo Wheeler Consulting Unavailable NO, PCP Primary Care Unavailable HAWK PÉREZ Admitting Unavailable HAWK PÉREZ Attending Unavailable HAWK PÉREZ Attending Unavailable HAWK PÉREZ Referring Unavailable NO, PCP Primary Care Unavailable No, Pcp Primary Care Provider Unavailabl e Aichholz BODY FITTER, Curtis Primary Care Provider MATTEO GURROLA Attending Unavailable MATTEO GURROLA Attending Unavailable Norah Coronel MD Unavailable AICHHOLZ, CURTIS Primary Care Unavailable DAVIDE TATUM Attending Unavailable CARLOS HE Referring Unavailable CHEPE CHAMBERS Referring Unavailable CHEPE CHAMBERS Attending Unavailable AICHHOLZ, CURTIS Primary Care Unavailable DAVIDE TATUM Referring Unavailable DAVIDE TATUM Attending Unavailable MAL MARTINEZ Attending Unavailable SELF, SELF Referring Unavailable MAL MARTINEZ Attending Unavailable AICHHOLZ, CURTIS Primary Care Unavailable SELF, SELF Referring Unavailable MAL MARTINEZ Attending Unavailable AICHHOLZ, CURTIS Referring Unavailable AICHHOLZ, CURTIS Primary Care Unavailable MAL MARTINEZ Attending Unavailable AICHHOLZ, CURTIS Referring Unavailable AICHHOLZ, CURTIS Primary Care Unavailable KYARA LOPEZ Attending Unavailable SELF, SELF Referring Unavailable AICHHOLZ, CURTIS Primary Care Unavailable MAL MARTINEZ Attending Unavailable AICHHOLZ, CURTIS Primary Care Unavailable SELF, SELF Referring Unavailable CHEPE CHAMBERS Referring Unavailable AICHHOLZ, CURTIS Primary Care Unavailable KIRILL, ADRIA B Attending Unavailab le AICHHOLZ, CURTIS Primary Care Unavailable KIRILL, ADRIA B Attending Unavailab le KIRILL, ADRIA B Referring Unavailab le AICHHOLZ, CURTIS Primary Care Unavailable SELF, SELF Referring Unavailable JASON BROWN Attending Unavailable AICHHOLZ, CURTIS Primary Care Unavailable CARLOS HE Referring Unavailable CHEPE CHAMBERS Attending Unavailable AICHHOLZ, CURTIS Primary Care Unavailable AICHHOLZ, CURTIS Referring Unavailable DAVIDE TATUM Attending Unavailable AICHHOLZ, CURTIS Primary Care Unavailable CARLOS HE Referring Unavailable CARLOS HE Attending Unavailable MAL MARTINEZ Attending Unavailable AICHHOLZ, CURTIS Referring Unavailable AICHHOLZ, CURTIS Primary Care Unavailable AICHHOLZ, CURTIS Referring Unavailable JAGDISH EDGE Attending Unava ilable AICHHOLZ, CURTIS Primary Care Unavailable CHEPE CHAMBERS Attending Unavailable CHEPE CHAMBERS Referring Unavailable AICHHOLZ, CURTIS Primary Care Unavailable AICHHOLZ, CURTIS Referring Unavailable CARLOS HE Attending Unavailable CHEPE CHAMBERS Referring Unavailable MAYRA TRAMMELL Attending Unavailable MAL MARTINEZ Attending Unavailable AICHHOLZ, CURTIS Referring Unavailable AICHHOLZ, CURTIS Primary Care Unavailable ERIC TOVAR Referring Unavailable CONSULT, GENERAL MEDICINE Consulting Unavai CHEPE Massey Admitting Unavailable CHEPE CHAMBERS Attending Unavailable ROSS PARRA Admitting Unavailable DAVIDE TATUM Referring Unavailable CONSULT, PALLIATIVE MEDICINE Consulting Reyna vailable AICHHOLZ, CURTIS Primary Care Unavailable SHAYE FINE Attending Unavailable ANDREINA DOLAN Attending Unavailable AICHHOLZ, CURTIS Referring Unavailable AICHHOLZ, CURTIS Primary Care Unavailable MAL MARTINEZ Attending Unavailable AICHHOLZ, CURTIS Referring Unavailable AICHHOLZ, CURTIS Primary Care Unavailable ABHYANKAR, MARK ANTHONY Referring Unavailable NERI, CARLOS C Attending Unavailable AICHHOLZ, CURTIS Primary Care Unavailable DAVIDE TATUM Referring Unavailable NORAH CORONEL Attending Unavailable MAL MARTINEZ Attending Unavailable AICHHOLZ, CURTIS Primary Care Unavailable SELF, SELF Referring Unavailable AICHHOLZ, CURTIS Primary Care Unavailable NERI, CARLOS C Referring Unavailable NERI, CARLOS C Attending Unavailable AICHHOLZ, CURTIS Primary Care Unavailable NERI, CARLOS C Referring Unavailable NERI, CARLOS C Attending Unavailable AICHHOLZ, CURTIS Referring Unavailable AICHHOLZ, CURTIS Primary Care Unavailable NERI, CARLOS C Attending Unavailable AICHHOLZ, CURTIS Referring Unavailable AICHHOLZ, CURTIS Primary Care Unavailable NERI, CARLOS C Attending Unavailable AICHHOLZ, CURTIS Primary Care Unavailable NERI, CARLOS C Referring Unavailable NERI, CARLOS C Attending Unavailable AICHHOLZ, CURTIS Primary Care Unavailable NERI, CARLOS C Referring Unavailable NERI, CARLOS C Attending Unavailable MAL MARTINEZ Attending Unavailable AICHHOLZ, CURTIS Referring Unavailable AICHHOLZ, CURTIS Primary Care Unavailable MARCO ANTONIO RAYA Attending Unavailable AICHHOLZ, CURTIS Referring Unavailable AICHHOLZ, CURTIS Primary Care Unavailable CHEPE CHAMBERS Attending Unavailable ABHYANKAR, MARK ANTHONY Referring Unavailable QUINIONCHEPE Attending Unavailable QUINION CHEPE D Referring Unavailable Aichholz BODY FITTER, Curtis Unavailable [phone] Carlos He MD Unavailable Davide Tatum PA-C Unavailable Aichholz BODY FITTER, Curtis Primary Care Provider [phone] Norah Coronel MD Unavailable [phone] Allergies Allergy Classification Reported Allergen(s) Allergy Type Date of Onset Reaction(s) Facility (20 sources) Codeine; Translations: [CODEINE] Drug Allergy 8 Vomiting, GI intolerance, Nausea and Vomiting, Other (See Comments) [facility] (13 sources) Adhesive Tape-Silicones; Translations: [ADHESIVE TAPE-SILICONES] Drug Allergy 0 Rash, Itching [facility] (1 source) Adhesive bandage Drug allergy (disorder) 0 [facility] (1 source) Codeine Drug Allergy 0 [facility] (20 sources) Wound Dressing Adhesive Drug Intolerance 0 Itching, Rash [facility] (3 sources) Adhesive Tape; Translations: [adhesive tape] Allergy to substance 8 Rash [facility] (1 source) Codeine Drug Allergy 8 [facility] Medications Current Medications Medication Drug Class(es) Dates Sig (Normalized) Sig (Original) acetaminophen 325 mg oral tablet (11 sources) Start: 05-18-2024 End: 06-01-2024 take 650 mg by mouth every six hours as needed Start: 04-06-2024 End: 04-06-2024 take 650 mg by mouth every four hours as needed for pain 650 mg, Oral, EVERY 4 HOURS PRN, Starting on Fri04/06/24 at 1657, Until Discontinued, Other, Pain (1-10), Give in addition to any other pain medication ordered at same time for any pain indication., Post-op take 1 tablet by inessa th every six hours as needed for pain and pain acetaminophen (Tylenol) 500 MG tablet Take 500 mg by mouth every 6 (six) hours if needed for mild pain or moderate pain Active anastrozole 1 mg oral tablet (20 sources) Aromatase Inhibitor Start: 11-08-2021 End: 01-12-2024 Comment on above: Take 1 tablet by inessa th once daily. TAKE 1 TABLET ONCE D AILY benzonatate 100 mg oral capsule (20 sources) Non-narcotic Antitussive Start: 04-14-2024 Biotin (11 sources) BIOTIN ORAL Take by mouth. Active BIOTIN ORAL Take by mouth. 0 Active Comment on above: Take by mouth. Calcium (1 source) Phosphate Binder, Calcium Start: 03-26-2024 take 1000 mg by mouth once daily Calcium Active 1000 MG PO Daily March 26, 2024 12:00am calcium carbonate 500 mg oral tablet (20 sources) Start: 05-24-2024 End: 05-24-2024 take 1000 mg by mouth once daily calcium carbonate (CALCIUM 500 ORAL) Take 1,000 mg by mouth once daily. Active Comment on above: Take 1,000 mg by inessa th once daily. cetirizine hydrochloride 10 mg oral tablet (1 source) Histamine-1 Receptor Antagonist Start: 04-06-20 chlorhexidine gluconate 1.2 mg/ml mouthwash (20 sources) chlorhexidine (Peridex) 0.12 % solution RINSE WITH 1/2 OUNCE BY MOUTH AFTER BREAKFAST AND BEFORE BEDTIME Active cholecalciferol 0.125 mg oral tablet (20 sources) Vitamin D Start: 03-26-20 take 1 tablet by mouth once daily Cholecalciferol (Vitamin D3) (Vitamin D3) 125 mcg (5,000 unit) tablet Active 125 MCG PO Daily March 26, 2024 12:00am cholecalciferol (D-5000) 5,000 Units tablet Take 10,000 Units by mouth Daily Active take 2 tablets by mouth twice da soo cholecalciferol (VITAMIN D3) 5,000 unit tab Take 10,000 Units by mouth twice daily. Active Comment on above: Take 10,000 Units by mouth twice daily. 1 ml denosumab 60 mg/ml prefilled syringe (20 sources) RANK Ligand Inhibitor Start: 03-26-20 Denosumab (Prolia) 60 mg/mL syringe Active 60 MG SUBCUT EVERY 6 MONTHS March 26, 2024 12:00am Drug or medicament (substance) (3 sources) fexofenadine hydrochloride 30 mg disintegrating oral tablet (20 sources) Histamine-1 Receptor Antagonist take 1 tablet by mouth once daily fexofenadine ODT (Maricruz ODT) 30 MG disintegrating tablet Take 30 mg by mouth Daily Active fexofenadine HCl (FEXOFENADINE ORAL) Take by mouth. Active fexofenadine HCl (FEXOFENADINE ORAL) Take by mouth. 0 Active Comment on above: Take by mouth. gabapentin 100 mg oral capsu le (4 sources) Anti-epileptic Agent Start: 05-31-2024 End: 07-01-2024 Start: 05-30-2024 End: 06-30-2024 1 ml ketorolac tromethamine 30 mg/ml cartridge (5 sources) Nonsteroidal Anti-inflammatory Drug, Cyclooxygenase Inhibitor Start: 05-22-2024 End: 05-22-2024 Start: 04-06-2024 End: 04-11-2024 30 mg, IntraVENous, EVERY 6 HOURS PRN, Starting on Fri04/06/24 at 1505, Until 04/11/24 at 1504, Pain Moderate (4-6), Do not administer for more than 5 days. Start: 04-06-2024 End: 04-06-2024 30 mg, IntraVENous, ONCE, 1 dose, On Fri04/06/24 at 1500, Per Dr. Pérez for pain relief, STAT, Post-op Start: 01-20-2024 End: 01-25-2024 take 1 tablet by mouth every eight hours at mealtime for pain ketorolac (Toradol) 10 MG tablet Indications: Rib pain on right side Take 1 tablet (10 mg) by mouth every 8 (eight) hours if needed for moderate pain for up to 5 days Take with food 15 tablet 01/20/2024 01/25/2024 Active Magnesium (20 sources) Start: 03-26-2024 take 400 mg by mouth once daily Magnesium Active 400 MG PO Daily March 26, 2024 12:00am take 420 mg by mouth once daily MAGNESIUM PO Take 420 mg by mouth daily. Suspended take 420 mg by mouth once daily MAGNESIUM PO Take 420 mg by mouth daily. Active MAGNESIUM PO Kimo e 250 mg by mouth Active MAGNESIUM PO Kimo e 250 mg by mouth. Suspended MAGNESIUM PO Kimo e 250 mg by mouth. Active Magnesium 250 mg tab Take 250 mg by mouth. Active MAGNESIUM PO Kimo e 400 mg by mouth Active Magnesium 250 mg tab Take 250 mg by mouth. 0 Active Comment on above: Take 250 mg by mouth . 50 ml magnesium sulfate 40 m g/ml injection (5 sources) Start: 05-26-2024 End: 05-26-2024 Start: 05-23-2024 End: 05-23-2024 Start: 05-20-2024 End: 05-21-2024 Start: 04-06-2024 2,000 mg, Intr aVENous, at 25 mL/hr, Administer over 2 Hours, PRN, Other, Magnesium Replacement, Starting on Fri04/06/24 at 1657, Mag Lab Replacement Action 1.4-1.6 mg/dL 2,000 mg Total Dose Given as 1,000 mg IVPB x 2 doses or 2,000 mg IVPB x 1 dose 1.0-1.3 mg/dL 4,000 mg Total Dose Given as 1,000 mg IVPB x 4 doses or 2,000 mg IVPB x 2 doses Less than 1.0 mg/dL CALL PHYSICIAN and give 4,000 mg Total Dose Given as 1,000 mg IVPB x 4 doses or 2,000 mg IVPB x 2 doses Infuse at 1,000 mg/hr Repeat Mag level 1 hour after final administration Protocol not for use in Patients with CrCl less than 30ml/min, Post-op Multiple Vitamins-Minerals (OCUVITE EXTRA PO) (11 sources) Multiple Vitamin s-Minerals (OCUVITE EXTRA PO) Take by mouth Active naloxone hydrochloride 40 mg/ml nasal spray (3 sources) Opioid Antagonist Start: 06-01-2024 End: 06-01-2024 Start: 05-27-2024 End: 06-01-2024 Start: 05-27-2024 End: 05-27-2024 OLANZapine 5 mg oral tablet (17 sources) Atypical Antipsychotic Start: 06-07-2024 End: 06-01-2024 Start: 06-07-2024 End: 07-05-2024 Start: 05-21-2024 End: 06-01-2024 Start: 05-19-2024 End: 05-21-2024 Start: 05-11-2024 End: 06-07-2024 take 2.5 mg by mouth every six hours as needed Start: 05-11-2024 End: 06-10-2024 [place] Side 9-Nyd-Drh-Fish Oil (Fish Oil) 1,000 (120-180) mg capsule (1 source) Start: 03-26-2024 take 1 capsule by mouth once daily [place] 7-Vuu-Nvj-Fish Oil (Fish Oil) 1,000 (120-180) mg capsule Active 1 CAP PO Daily March 26, 2024 12:00am Shady Side-3 Fatty Acids (Fish Oil) 1200 MG capsule delayed-release (20 sources) [place]ady Side-3 Fatty Ac ids (Fish Oil) 1200 MG capsule delayed-release Take by mouth Active [place] Side-3 Fatty Acids (FISH OIL) 1200 MG CPDR (2 sources) [place] Side-3 Fatty Ac ids (FISH OIL) 1200 MG CPDR Take by mouth Active ondansetron 4 mg oral tablet (4 sources) Serotonin-3 Receptor Antagonist Start: 05-31-2024 End: 06-30-2024 take 4 mg by mouth every four hours as needed Start: 05-18-2024 End: 06-01-2024 take 4 mg intravenously every six hours as needed ondansetron (ZOFRAN-ODT) disintegrating tablet 4 mg (1 source) Start: 04-06-2024 ondansetron (Z OFRAN-ODT) disintegrating tablet 4 mg oxyCODONE hydrochloride 10 mg oral tablet (20 sources) Opioid Agonist Start: 05-31-2024 End: 06-21-2024 Start: 05-31-2024 End: 05-27-2024 Start: 05-20-2024 End: 05-27-2024 Start: 05-11-2024 End: 05-21-2024 take 1 tablet by mouth every four hours as needed Start: 04-06-2024 End: 04-11-2024 take 1 tablet by mouth every six hours as needed for pain oxyCODONE (ROXICODONE) 5 MG immediate release tablet Indications: Pleural effusion Take 1 tablet by mouth every 6 hours as needed for Pain for up to 5 days. Intended supply: 5 days. Take lowest dose possible to manage pain Max Daily Amount: 20 mg 20 tablet 04/06/2024 04/11/2024 Active Start: 04-06-2024 End: 04-06-2024 take 1 dose by mouth once 5 mg, Oral, ONCE PRN, 1 dose , Starting on Fri04/06/24 at 1257, Until Fri04/06/24 at 1406, Pain Moderate (4-6), Pain Severe (7-10), PHASE II, PACU only Start: 03-22-2024 End: 05-25-2024 take 1 tablet by mouth every four hours as needed for pain and pain, then take 4 tablets by mouth once daily as needed for pain and pain oxyCODONE 5 MG tablet Indications: Cancer related pain Take 1 tablet by mouth every 4 hours as needed for Moderate Pain for up to 14 days. Max 4 tabs per day. For chronic cancer related pain. G89.3. Ok to fill with Butrans patch. 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 63 Each 05/12/2024 Suspended sennosides, chcf 17.2 mg oral tablet (4 sources) Start: 05-31-2024 Start: 05-18-2024 End: 06-01-2024 tiZANidine 4 mg oral tablet (20 sources) Central alpha-2 Adrenergic Agonist Start: 01-20-2024 End: 01-30-2024 tiZANidine (Zanaflex) 4 MG tablet Indications: Rib pain on right side Take 1 tablet (4 mg) by mouth as needed at bedtime for muscle spasms for up to 10 days 10 tablet 01/20/2024 Active Start: 01-20-2024 take 1 tablet by inessa th once daily as needed tiZANidine (ZANAFLEX) 4 MG tablet Take 1 tablet by mouth nightly as needed 01/20/2024 Active Turmeric extract (11 sources) TURMERIC ORAL Ta ke by mouth. Active TURMERIC ORAL Ta ke by mouth. 0 Active Comment on above: Take by mouth. Vit C-Vit W-Gjnmjn-Qgrhuwdf (1 source) Start: 03-26-2024 take 1 capsule by mouth once daily Vit C-Vit P-Tjwafi-Gyoejtdm Active 1 CAP PO Daily March 26, 2024 12:00am Vitamin B Complex (11 sources) vitamin B comple x (B COMPLEX 1 ORAL) Take by mouth. Active vitamin B comple x (B COMPLEX 1 ORAL) Take by mouth. 0 Active Comment on above: Take by mouth. (1 source) Completed/Discontinued Medications Medication Drug Class(es) Dates Sig (Normalized) Sig (Original) aluminum hydroxide 40 mg/ml / magnesium hydroxide 40 mg/ml / simethicone 4 mg/ml oral suspension (1 source) Start: 05-18-2024 End: 06-01-2024 take 30 mL by mouth every six hours as needed bisacodyl 10 mg rectal suppository (1 source) Stimulant Laxative Start: 05-19-2024 End: 06-01-2024 168 hr buprenorphine 0.01 mg/hr transdermal system (13 sources) Partial Opioid Agonist Start: 05-20-2024 End: 05-23-2024 Start: 05-20-2024 End: 06-17-2024 Buprenorphine (Butrans) 10 M CG/HR Patch Weekly 10 mcg/hr patch Indications: Carcinoma of breast metastatic to bone, unspecified laterality , Palliative care by specialist , Cancer associated pain Place 1 patch on skin every 7 days. 4 patch 05/20/2024 06/17/2024 Active Start: 05-19-2024 End: 05-21-2024 take 0.09 mg intravenously every four hours as needed Start: 05-11-2024 End: 05-20-2024 Start: 05-11-2024 End: 06-08-2024 Buprenorphine (Butrans) 5 MC G/HR Patch Weekly 5 mcg/hr patch Indications: Cancer related pain Place 1 patch on skin every 7 days. For chronic cancer related pain. G89.3. 4 patch 05/11/2024 06/08/2024 Suspended cefTRIAXone 1000 mg injection (2 sources) Cephalosporin Antibacterial Start: 05-20-2024 End: 05-22-2024 take 1 g intravenously every twenty-four hours cyclobenzaprine hydrochloride 5 mg oral tablet (20 sources) Muscle Relaxant Start: 03-31-2024 End: 05-31-2024 1 ml dexamethasone phosphate 4 mg/ml injection (2 sources) Corticosteroid Start: 05-20-2024 End: 05-24-2024 take 4 mg intravenously every twenty-four hours 0.4 ml enoxaparin sodium 100 mg/ml prefilled syringe (20 sources) Low Molecular Weight Heparin Start: 03-22-2024 End: 06-01-2024 1.7 ml EPINEPHrine 0.01 mg/ml / lidocaine hydrochloride 20 mg/ml cartridge (1 source) Antiarrhythmic, alpha-Adrenergic Agonist, beta-Adrenergic Agonist, Catecholamine, Amide Local Anesthetic Start: 05-27-2024 End: 05-27-2024 famotidine 20 mg oral tablet (20 sources) Histamine-2 Receptor Antagonist Start: 04-06-2024 famotidine (PEPCID) tablet 20 mg Start: 10-13-2023 End: 07-19-2024 Start: 10-13-2023 take 1 tablet by inessa th twice daily faMOTIdine 20 MG tablet Take 1 tablet by mouth 2 times daily. 10/13/2023 Active Comment on above: Take 20 mg by mouth twice daily. 2 ml fentaNYL 0.05 mg/ml injection (1 source) Opioid Agonist Start: 05-27-2024 End: 05-27-2024 flumazenil 0.1 mg/ml injectable solution (1 source) Benzodiazepine Antagonist Start: 05-27-2024 End: 06-01-2024 5 ml fulvestrant 50 mg/ml prefilled syringe (20 sources) Estrogen Receptor Antagonist Start: 04-28-2024 End: 04-28-2024 500 mg, Intramuscular, ONCE (OUTPT CLINIC), 1 dose, Starting on Fri04/28/24 at 1624, Until Fri04/28/24 at 1633, Administer 500 mg dose as two 5 ml injections, one in EACH buttocks, slowly over 1-2 minutes per injection. Start: 04-14-2024 End: 04-14-2024 500 mg, Intramuscular, ONCE (OUTPT CLINIC), 1 dose, Starting on Fri04/14/24 at 1329, Until Fri04/14/24 at 1351, Administer 500 mg dose as two 5 ml injections, one in EACH buttocks, slowly over 1-2 minutes per injection. FULVESTRANT IM I nject intramuscularly. Suspended FULVESTRANT IM I nject intramuscularly. Active glucose 0.45 mg/mg oral gel (2 sources) Start: 05-24-2024 End: 06-01-2024 Start: 05-24-2024 End: 06-01-2024 guaiFENesin 20 mg/ml oral solution (1 source) Start: 05-18-2024 End: 06-01-2024 take 200 mg by mouth every four hours as needed 1 ml haloperidol 5 mg/ml prefilled syringe (1 source) Typical Antipsychotic Start: 05-19-2024 End: 05-20-2024 1 ml HYDROmorphone hydrochloride 1 mg/ml cartridge (2 sources) Opioid Agonist Start: 05-18-2024 End: 05-19-2024 take 0.5 mg intravenously every four hours as needed Start: 04-06-2024 End: 04-06-2024 take 0.5 mg by mouth once 0.5 mg, IntraVENous, ONCE, 1 dose, On Fri04/06/24 at 1545, If oral and IV narcotics ordered, use oral first and only use IV if oral is ineffective or cannot take oral. Do Not give oral and IV within 1 hour of each other unless specifically ordered., STAT, Post-op HYDROmorphone (DILAUDID) 1 mg/mL DIESEL ROLLER OPERATOR (1 source) Start: 04-06-2024 End: 04-07-2024 Patient Bolus (DIESEL ROLLER OPERATOR Dose): 0.2 mg, Lockout Interval: 10 Minutes, Continuous Dose: 0 mg/hr, One Hour Dose Limit: 1 mg, Loading Dose: 0 mg, IntraVENous, CONTINUOUS, Starting on Fri04/06/24 at 1530 hydrOXYzine hydrochloride 2 mg/ml oral solution (12 sources) Antihistamine Start: 05-23-2024 End: 05-30-2024 take 10 mg by mouth every six hours as needed Start: 07-17-2020 take 1 tablet by inessa th once daily at bedtime hydrOXYzine HCl (ATARAX) 25 mg tablet Take 1 tablet by mouth daily at bedtime. 30 tablet 1 07/17/2020 Active Comment on above: Take 1 tablet by inessa th daily at bedtime. ibuprofen 400 mg oral tablet (20 sources) Nonsteroidal Anti-inflammatory Drug Start: 05-31-2024 End: 06-01-2024 take 400 mg by mouth every six hours as needed Start: 03-26-2024 Ibuprofen Acti ve 800 MG PO .Q8 March 26, 2024 12:00am Start: 09-05-2023 End: 04-10-2024 levothyroxine sodium 0.075 m g oral tablet (20 sources) l-Thyroxine Start: 05-19-2024 End: 06-01-2024 Start: 08-11-2019 End: 04-10-2024 Start: 03-31-2018 take 75 ug by mouth once daily in the morning Levothyroxine Active 75 MCG PO Every morning March 31, 2018 12:00am Start: 03-31-2018 take 50 ug by mouth once daily Levothyroxine Active 50 MCG PO Daily March 31, 2018 12:00am Comment on above: Take 75 mcg by mouth daily before breakfast. lidocaine hydrochloride 10 m g/ml injectable solution (2 sources) Antiarrhythmic, Amide Local Anesthetic Start: 05-19-2024 End: 05-19-2024 Start: 05-19-2024 End: 06-01-2024 loratadine 10 mg oral tablet (20 sources) Start: 03-26-2024 End: 06-01-2024 take 1 capsule by mouth once kiley ly loratadine (CLARITIN) 10 MG capsule Take 1 capsule by mouth Every Day Active Comment on above: Take 10 mg by mouth once daily. magnesium oxide 400 mg oral tablet (1 source) Start: 05-25-2024 End: 05-25-2024 melatonin 3 mg oral tablet (2 sources) Start: 05-31-2024 End: 06-01-2024 Start: 05-26-2024 End: 05-30-2024 methadone hydrochloride 10 mg/ml oral solution (9 sources) Opioid Agonist Start: 05-23-2024 End: 06-29-2024 2 ml midazolam 1 mg/ml injection (1 source) Benzodiazepine Start: 05-27-2024 End: 05-27-2024 Multiple Vitamins-Minerals (OCUVITE-LUTEIN PO) (20 sources) Multiple Vitamins-Minerals (OCUVITE-LUTEIN PO) Take by mouth. Suspended Multiple Vitamin s-Minerals (OCUVITE-LUTEIN PO) Take by mouth. Active Shady Side-3 Fatty Acids (Fish Oi l) [address] (20 sources) Shady Side-3 Fatty Ac ids (Fish Oil) [address] Take by mouth. Suspended Shady Side-3 Fatty Ac ids (Fish Oil) [address] Take by mouth. Active omeprazole 40 mg delayed release oral capsule (2 sources) Proton Pump Inhibitor Start: 03-31-2018 End: 03-26-2024 take 40 mg by mouth once daily Omeprazole Discontinued 40 MG PO Daily March 31, 2018 12:00am March 26, 2024 1:09am pantoprazole 40 mg injection (1 source) Proton Pump Inhibitor Start: 05-21-2024 End: 06-01-2024 polyethylene glycol 3350 18908 mg powder for oral solution (20 sources) Osmotic Laxative Start: 03-22-2024 End: 06-01-2024 100 ml potassium chloride 0.1 meq/ml injection (2 sources) Start: 05-26-2024 End: 05-26-2024 Start: 04-06-2024 10 mEq, IntraV ENous, PRN, Starting on Fri04/06/24 at 1657, Until Discontinued, at 100 mL/hr, Potassium Replacement, K Lab Replacement Action 3.1-3.5 10 mEq IVPB x 4 doses (40 mEq Total) 2.7-3.0 10 mEq IVPB x 6 doses (60 mEq Total) potassium phosphate 155 mg / sodium phosphate, dibasic 852 mg / sodium phosphate, monobasic 130 mg oral tablet (2 sources) Start: 05-24-2024 End: 05-25-2024 prochlorperazine 10 mg oral tablet (20 sources) Phenothiazine Start: 04-14-2024 End: 05-31-2024 ramelteon 8 mg oral tablet (1 source) Melatonin Receptor Agonist Start: 05-30-2024 End: 06-01-2024 salmon calcitonin 200 unt/ml injectable solution (2 sources) Calcitonin Start: 05-19-2024 End: 05-19-2024 20 ml sodium chloride 9 mg/m l injection (8 sources) Start: 05-21-2024 End: 05-21-2024 Start: 05-19-2024 End: 05-19-2024 Start: 05-19-2024 End: 05-19-2024 Start: 05-18-2024 End: 05-21-2024 Start: 04-06-2024 5-40 mL, Intra VENous, EVERY 12 HOURS SCHEDULED (2 times per day), First dose on Fri04/06/24 at 2100, Until Discontinued, For Line Patency: Peripheral IV = 5 mL; Midline or Central Line = 10 mL/lumen. If following IV push medication, administer flush at same rate as the IV push. Flush volume is determined by type of infusion therapy being given. For non-viscous solutions use: Peripheral IV = 5 mL Midline or Central Line = 10 mL/lumen For viscous solutions (i.e. blood components, parenteral nutrition, contrast media, or after obtaining blood sample) use: Peripheral IV = 10 mL Midline or Central Line = 20 mL/lumen, Post-op Start: 04-06-2024 5-40 mL, Intra VENous, PRN, Starting on Fri04/06/24 at 1657, Until Discontinued, Line Care, After every IV line use, For Line Patency: Peripheral IV = 5 mL; Midline or Central Line = 10 mL/lumen. If following IV push medication, administer flush at same rate as the IV push. Flush volume is determined by type of infusion therapy being given. For non-viscous solutions use: Peripheral IV = 5 mL Midline or Central Line = 10 mL/lumen For viscous solutions (i.e. blood components, parenteral nutrition, contrast media, or after obtaining blood sample) use: Peripheral IV = 10 mL Midline or Central Line = 20 mL/lumen, Post-op Start: 04-06-2024 End: 04-06-2024 IntraVENous, at 5-250 mL/hr, PRN, if patient receiving piggyback infusions and maintenance fluids are not ordered, Starting on Fri04/06/24 at 1657, For piggyback infusion, administer at same rate as piggyback for a total of 25 mL. Enter 25 mL into dose field and piggyback rate into rate field of order. 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 42 tablet 04/28/2024 05/11/2024 Discontinued Start: 02-11-2024 End: 02-18-2024 take 1 tablet by mouth once traMADol (Ultram) 50 MG ta blet Indications: Right hip pain Take 1 tablet (50 mg) by mouth every 12 (twelve) hours if needed for severe pain for up to 7 days 14 tablet 02/11/2024 02/18/2024 Active End: 04-28-2024 take 1 tablet by mouth every six hours as needed traMADol 50 MG tablet Take 1 tablet by mouth every 6 hours as needed for Mild Pain, Moderate Pain or Severe Pain. 04/28/2024 Discontinued 100 ml zoledronic acid 0.04 mg/ml injection (1 source) Bisphosphonate Start: 05-19-2024 End: 05-19-2024 (5 sources) Start: 05-31-2024 End: 06-01-2024 [Order 1 Start] Name: thiamine (B-1) 500 mg in Sodium chloride 0.9%, with overfill 65 mL (total volume) IVPB Signed Summary: 500 mg, Intravenous, Administer over 30 Minutes, DAILY, 3 doses, First dose on Fri05/31/24 at 1215, Last dose on Fri06/02/24 at 0900 [Order 1 End] [Order 2 Start] Name: thiamine (B-1) 250 mg in Sodium chloride 0.9%, with overfill 62.5 mL (total volume) IVPB Signed Summary: 250 mg, Intravenous, Administer over 30 Minutes, DAILY, 3 doses, First dose on Cheryl 06/03/24 at 0900, Last dose on Fri06/05/24 at 0900 [Order 2 End] [Order 3 Start] Name: Thiamine (Vitamin B-1) injection 100 mg Signed Summary: 100 mg, Intravenous, DAILY, First dose on Fri06/06/24 at 0900, Until Discontinued [Order 3 End] Start: 05-31-2024 End: 06-01-2024 take 5 mg by mouth every four hours as needed [Order 1 Start] Name: oxyCODONE (ROXICODONE) tablet 5 mg Signed Summary: 5 mg, Oral, EVERY 4 HOURS NEEDED, Starting on Fri05/31/24 at 1117, Until Fri06/01/24 at 1842, Severe Pain, Moderate Pain [Order 1 End] [Order 2 Start] Name: oxyCODONE HCl (ROXICODONE) tablet 10 mg Signed Summary: 10 mg, Oral, EVERY 4 HOURS NEEDED, Starting on Fri05/31/24 at 1117, Until Fri06/01/24 at 1842, Moderate Pain, Severe Pain [Order 2 End] Start: 05-25-2024 End: 06-01-2024 take 15 mL transmucosal route every six hours as needed Start: 05-22-2024 End: 05-22-2024 Start: 05-21-2024 End: 05-21-2024 (2 sources) Start: 05-21-2024 End: 05-21-2024 Start: 05-19-2024 End: 05-19-2024 (2 sources) Start: 05-19-2024 End: 05-19-2024 Start: 05-19-2024 End: 05-19-2024 Problems Active Problems Problem Classification Problem Date Documented Da te Episodic/Chronic Cancer of breast (20 sources) Infiltrating duct carcinoma of breast; Translations: [Malignant neoplasm of unspecified site of left female breast] Onset: 0 Resolved: 4 10-07-2019 Chronic Disorders of lipid metabolism (20 sources) Mixed hyperlipidemia; Translations: [Mixed hyperlipidemia] Onset: 4 12-29-2023 Chronic Esophageal disorders (20 sources) Gastroesophageal reflux disease without esophagitis; Translations: [Gastro-esophageal reflux disease without esophagitis] Onset: 3 05-06-2023 Chronic Nausea and vomiting (1 source) Nausea; Translations: [Nausea] 05-11-2024 Episodic Nutritional deficiencies (20 sources) Vitamin D deficiency, unspecified; Translations: [Vitamin D deficiency] Onset: 3 09-10-2023 Chronic Osteoporosis (20 sources) Osteoporosis; Translations: [Other osteoporosis without current pathological fracture] Onset: 1 01-01-2021 Chronic Other aftercare (1 source) Taking high risk medication; Translations: [Other tank terminal gauger (current) drug therapy] 05-11-2024 Episodic Other aftercare (2 sources) Under care of palliative care physician; Translations: [Encounter for palliative care] 05-11-2024 Episodic Other aftercare (1 source) Encounter for palliative care; Translations: [Encounter for palliative care] Onset: 4 Episodic Other aftercare (1 source) Other tank terminal gauger (current) drug therapy; Translations: [Other usp (current) drug therapy] Onset: 4 Episodic Other aftercare (1 source) Encounter for palliative care; Translations: [Encounter for palliative care] Onset: 4 Episodic Other bone disease and musculoskeletal deformities (1 source) Disorder of bone; Translations: [Disorder of bone, unspecified] 02-13-2024 Episodic Other bone disease and musculoskeletal deformities (3 sources) Disorder of bone, unspecified; Translations: [Disorder of bone and cartilage, unspecified] Onset: 4 03-17-2024 Episodic Other bone disease and musculoskeletal deformities (1 source) Other specified disorders of bone, thigh; Translations: [Other specified disorders of bone, thigh] Onset: 4 Episodic Other connective tissue disease (1 source) Neuropathic pain; Translations: [Neuralgia and neuritis, unspecified] 05-11-2024 Episodic Other gastrointestinal disorders (1 source) Therapeutic opioid induced constipation; Translations: [Drug induced constipation] 05-11-2024 Episodic Other lower respiratory disease (20 sources) Hypoxia; Translations: [Hypoxemia] Onset: 4 Resolved: 4 03-25-2024 Episodic Other lower respiratory disease (2 sources) Shortness of breath; Translations: [Shortness of breath] Onset: 4 Episodic Other lower respiratory disease (1 source) Hypoxemia; Translations: [Hypoxemia] Onset: 4 Episodic Other lower respiratory disease (1 source) Hypoxemia; Translations: [Hypoxemia] Onset: Episodic Other nervous system disorders (3 sources) Pain due to neoplastic disease; Translations: [Neoplasm related pain (acute) (chronic)] 05-11-2024 Chronic Other nervous system disorders (1 source) Neoplasm related pain (acute) (chronic); Translations: [Neoplasm related pain (acute) (chronic)] Onset: 4 Chronic Other nervous system disorders (1 source) Neoplasm related pain (acute) (chronic); Translations: [Neoplasm related pain (acute) (chronic)] Onset: 4 Chronic Other nutritional; endocrine; and metabolic disorders (1 source) Decrease in appetite; Translations: [Anorexia] 05-11-2024 Episodic Other nutritional; endocrine; and metabolic disorders (6 sources) Adult failure to thrive syndrome; Translations: [Adult failure to thrive] Onset: 4 05-18-2024 Episodic Other screening for suspected conditions (not mental disorders or infectious disease) (20 sources) CT of chest abnormal; Translations: [Abnormal findings on diagnostic imaging of other specified body structures] Onset: 4 02-16-2024 Chronic Donna-; endo-; and myocarditis; cardiomyopathy (except that caused by tuberculosis or sexually transmitted disease) (20 sources) Pericardial effusion; Translations: [Pericardial effusion] Onset: 4 02-16-2024 Episodic Pleurisy; pneumothorax; pulmonary collapse (20 sources) Pleural effusion; Translations: [Pleural effusion, not elsewhere classified] Onset: 4 01-28-2024 Episodic Residual codes; unclassified (20 sources) At risk of disease; Translations: [Other specified personal risk factors, not elsewhere classified] Onset: 4 Resolved: 4 03-17-2024 Episodic Residual codes; unclassified (1 source) Other specified health status; Translations: [Other specified health status] Onset: 4 Episodic Residual codes; unclassified (2 sources) Other specified personal risk factors, not elsewhere classified; Translations: [Other specified personal risk factors, not elsewhere classified] Onset: 4 Episodic Residual codes; unclassified (1 source) Difficult venous access; Translations: [Other specified health status] 05-31-2024 Episodic Respiratory failure; insufficiency; arrest (adult) (2 sources) Acute respiratory failure with hypoxia; Translations: [Acute respiratory failure] Onset: 4 05-31-2024 Episodic Secondary malignancies (1 source) Secondary malignant neoplasm of lung; Translations: [Secondary malignant neoplasm of unspecified lung] 03-26-2024 Chronic Secondary malignancies (2 sources) Secondary malignant neoplasm of bone; Translations: [Secondary malignant neoplasm of bone] Onset: 4 03-26-2024 Chronic Secondary malignancies (3 sources) Secondary malignant neoplasm of bone; Translations: [Secondary malignant neoplasm of bone and bone marrow] Onset: 4 03-26-2024 Chronic Secondary malignancies (2 sources) Secondary malignant neoplasm of unspecified lung; Translations: [Secondary malignant neoplasm of lung] Onset: 4 03-26-2024 Chronic Secondary malignancies (7 sources) Malignant pleural effusion; Translations: [Malignant pleural effusion] Onset: 4 04-01-2024 Chronic Secondary malignancies (6 sources) Secondary malignant neoplasm of brain; Translations: [Secondary malignant neoplasm of brain] Onset: 4 05-20-2024 Chronic Secondary malignancies (1 source) Secondary malignant neoplasm of brain; Translations: [Secondary malignant neoplasm of brain] Onset: 4 Chronic Secondary malignancies (1 source) Secondary malignant neoplasm of pleura; Translations: [Secondary malignant neoplasm of pleura] Onset: 4 Chronic Secondary malignancies (1 source) Secondary malignant neoplasm of pleura; Translations: [Secondary malignant neoplasm of pleura] Onset: 4 Chronic Thyroid disorders (20 sources) Acquired hypothyroidism; Translations: [Hypothyroidism, unspecified] Onset: 3 05-06-2023 Chronic Unclassified (2 sources) Other pericardial effusion (noninflammatory); Translations: [Other pericardial effusion (noninflammatory)] Onset: 4 Unclassified (13 sources) Access to Medication(s) Onset: 4 04-15-2024 Unclassified (13 sources) Safety: Avoid toxicity that would cause discontinuation Onset: 4 04-15-2024 Unclassified (13 sources) Identify and eliminate barriers to patient adherence Onset: 4 04-15-2024 Unclassified (13 sources) Ensure that patient is receiving therapeutic benefit Onset: 4 04-15-2024 Unclassified (13 sources) MyChart Onset: 4 04-15-2024 Unclassified (2 sources) New Patient; Translations: [New Patient] Onset: 4 Past or Other Problems Problem Classification Problem Date Documented Da te Episodic/Chronic Cancer of breast (20 sources) Personal history of malignant neoplasm of breast; Translations: [History of malignant neoplasm of breast] Onset: 05-23-2022 09-10-2023 Episodic Diabetes mellitus without complication (20 sources) Prediabetes; Translations: [Prediabetes] Onset: 09-10-2023 09-10-2023 Episodic Fracture of lower limb (5 sources) Displaced fracture of proximal phalanx of right lesser toe(s), subsequent encounter for fracture with routine healing; Translations: [Displaced fracture of proximal phalanx of right lesser toe(s), initial encounter for closed fracture] Onset: 12-17-2021 Episodic Lymphadenitis (20 sources) Mediastinal lymphadenopathy; Translations: [Localized enlarged lymph nodes] Onset: 02-19-2024 02-19-2024 Episodic Mood disorders (20 sources) Mood disorders Onset: 03-12-2024 Resolved: 05-12-2024 03-12-2024 Other aftercare (20 sources) Prophylactic aromatase inhibitors given; Translations: [long-term (current) use of aromatase inhibitors] Onset: 11-19-2023 11-19-2023 Episodic Other bone disease and musculoskeletal deformities (20 sources) Bony pelvic pain; Translations: [Other specified disorders of bone, other site] Onset: 01-29-2024 01-29-2024 Episodic Other bone disease and musculoskeletal deformities (20 sources) Disorder of hip; Translations: [Other specified disorders of bone, thigh] Onset: 01-31-2024 01-31-2024 Episodic Other connective tissue disease (4 sources) Pain in right foot; Translations: [PAIN IN RIGHT FOOT] Onset: 12-25-2021 Episodic Other fractures (20 sources) Closed fracture of single right rib; Translations: [Fracture of one rib, right side, initial encounter for closed fracture] Onset: 01-28-2024 01-28-2024 Episodic Other fractures (1 source) Closed fracture of one rib; Translations: [Fracture of one rib, right side, subsequent encounter for fracture with nonunion] 01-28-2024 Episodic Other lower respiratory disease (20 sources) Rib pain; Translations: [Pleurodynia] Onset: 01-20-2024 01-20-2024 Episodic Other non-traumatic joint disorders (20 sources) Hip pain; Translations: [Pain in right hip] Onset: 01-29-2024 01-29-2024 Episodic Other non-traumatic joint disorders (10 sources) Pain in right hip joint; Translations: [Pain in right hip] Onset: 01-29-2024 02-11-2024 Episodic Other screening for suspected conditions (not mental disorders or infectious disease) (20 sources) Encounter for screening for malignant neoplasm of cervix; Translations: [Patient encounter status] Onset: 08-29-2022 Episodic Respiratory failure; insufficiency; arrest (adult) (1 source) Respiratory failure; insufficiency; arrest (adult); Translations: [Acute respiratory failure with hypoxia] Onset: 05-18-2024 Unclassified (2 sources) Other pericardial effusion (noninflammatory); Translations: [Other pericardial effusion (noninflammatory)] Onset: 03-25-2024 Unclassified (1 source) Other specified health status; Translations: [Other specified health status] Onset: 05-18-2024 Unclassified (1 source) Pleural effusion, not elsewhere classified; Translations: [Pleural effusion, not elsewhere classified] Onset: 05-18-2024 Unclassified (1 source) Other usp (current) drug therapy; Translations: [Other tank terminal gauger (current) drug therapy] Onset: 05-11-2024 Unclassified (1 source) Malignant neoplasm of unspecified site of right female breast; Translations: [Malignant neoplasm of unspecified site of right female breast] Onset: 04-14-2024 Unclassified (1 source) Other specified disorders of bone, thigh; Translations: [Other specified disorders of bone, thigh] Onset: 04-14-2024 Unclassified (1 source) Malignant neoplasm of unspecified site of left female breast; Translations: [Malignant neoplasm of unspecified site of left female breast] Onset: 04-09-2024 Unclassified (1 source) Encounter for preprocedural cardiovascular examination; Translations: [Encounter for preprocedural cardiovascular examination] Onset: 03-17-2024 Results Test Name Value Interpretation Reference Range Facility CALCIUMon 06-01-2024 Calcium [Mass/Vol] 8.7 mg/dL 8.6 - 10. 5 mg/dL [facility] Calcium [Mass/Vol] 8.7 mg/dL Normal 8.6-10.5 [facility] Comment on above: Performed By: #### C HM7, CA, MGO, IPB ####[facility] (DEFAULT)[address] [place] [address] CBC,PLATELETSon 06-01-2024 Erythrocyte distribution width (RBC) [Ratio] 15.5 % High 10.8 - 14.9 % [facility] Hematocrit (Bld) [Volume fraction] 30.1 % Low 34.9 - 44.3 % [facility] Hemoglobin (Bld) [Mass/Vol] 9.6 g/dL Low 11.4 - 15.2 g/dL [facility] Interpretation and review of laboratory results Abnormal [facility] MCH (RBC) [Entitic mass] 28.8 pg 25.9 - 33.9 pg [facility] MCHC (RBC) [Mass/Vol] 31.9 g/dL 31.4 - 35.9 g/dL [facility] MCV (RBC) [Entitic vol] 90.4 fL 79.6 - 97.7 fL [facility] Platelet mean volume (Bld) [Entitic vol] 8.6 fL 8.5 - 12.2 fL [facility] Platelets (Bld) [#/Vol] 369 10*3/uL 150 - 393 K/uL [facility] RBC (Bld) [#/Vol] 3.33 10*6/uL Low [facility] WBC (Bld) [#/Vol] 7.93 10*3/uL 3.99 - 11.19 K/uL [facility] Hematocrit (Bld) [Volume fraction] 30.1 % Low 34.9-44.3 [facility] Comment on above: Performed By: #### H [facility] ####[facility] (DEFAULT)[address] [place] [id number] Hemoglobin (Bld) [Mass/Vol] 9.6 g/dL Low 11.4-15.2 [facility] Comment on above: Performed By: #### H EMO ####[facility] (DEFAULT)[address] [place] [address] MCV (RBC) [Entitic vol] 90.4 fL Normal 79.6-97.7 [facility] Comment on above: Performed By: #### H EMO ####[facility] (DEFAULT)[address] [place] [address] Mean Cell Hgb 28.8 pg Normal 25.9-33.9 [facility] Comment on above: Performed By: #### H EMO ####[facility] (DEFAULT)[address] [place] [address] Mean Cell Hgb Conc 31.9 g/dL Normal 31.4-35.9 [facility] Comment on above: Performed By: #### H EMO ####[facility] (DEFAULT)[address] [place] [address] Platelet mean volume (Bld) [Entitic vol] 8.6 fL Normal 8.5-12.2 [facility] Comment on above: Performed By: #### H [facility] ####[facility] (DEFAULT)[address] [place] [address] Platelets (Bld) [#/Vol] 369 10*3/uL Normal 150-393 [facility] Comment on above: Performed By: #### H [facility] ####[facility] (DEFAULT)[address] [place] [address] RBC (Bld) [#/Vol] 3.33 10*6/uL Low 3.91-5.04 [facility] Comment on above: Performed By: #### H [facility] ####[facility] (DEFAULT)[address] [place] [address] RBC Distribution 15.5 % High 10.8-14.9 [facility] Comment on above: Performed By: #### H [facility] ####[facility] (DEFAULT)[address] [place] [address] WBC (Bld) [#/Vol] 7.93 10*3/uL Normal 3.99-11.19 [facility] Comment on above: Performed By: #### H [facility] ####[facility] (DEFAULT)[address] [place] [address] CHEM 7 (LYTES,BUN,CREA,GLUC) on 06-01-2024 Anion gap [Moles/Vol] 12 mmol/L 7 - 17 mmol/L [facility] Chloride [Moles/Vol] 90 mmol/L Low 98 - 10 8 mmol/L [facility] CO2 [Moles/Vol] 29 mmol/L 21 - 31 mmol/L [facility] Creatinine [Mass/Vol] 0.42 mg/dL Low 0.50 - 1.20 mg/dL [facility] eGFR, CKD-EPI, Female - PINF [facility] Glucose [Mass/Vol] 107 mg/dL High 70 - 99 mg/dL [facility] Interpretation and review of laboratory results Abnormal [facility] Osmolality Calc [Osmolality] 268 Low [facility] Potassium [Moles/Vol] 4.2 mmol/L 3.5 - 5.0 mmol/L [facility] Sodium [Moles/Vol] 127 mmol/L Low 135 - 145 mmol/L [facility] Urea nitrogen [Mass/Vol] 9 mg/dL 7 - 25 mg/dL [facility] Urea nitrogen/Creatinine [Mass ratio] 21 mg/mg [facility] Anion gap [Moles/Vol] 12 mmol/L Normal 7-17 [facility] Comment on above: Performed By: #### C HM7, CA, MGO, IPB ####[facility] (DEFAULT)[address] [place] [address] Chloride [Moles/Vol] 90 mmol/L Low 98-108 [facility] Comment on above: Performed By: #### C HM7, CA, MGO, IPB ####[facility] (DEFAULT)[address] [place] [address] CO2 [Moles/Vol] 29 mmol/L Normal 21-31 [facility] Comment on above: Performed By: #### Gila HM7, CA, MGO, IPB ####[facility] (DEFAULT)[address] [place] [address] Creatinine [Mass/Vol] 0.42 mg/dL Low 0.50-1.20 [facility] Comment on above: Performed By: #### Gila HM7, CA, MGO, IPB ####[facility] (DEFAULT)[address] [place] [address] eGFR, CKD-EPI, Female > Normal >=60 [facility] Comment on above: Result Comment: Repo rted eGFR is based on the CKD-EPI 2020 equation using creatinine, age, and sex. Performed By: #### C HM7, CA, MGO, IPB ####[facility] (DEFAULT)[address] [place] [address] Glucose [Mass/Vol] 107 mg/dL High 70-99 [facility] Comment on above: Performed By: #### C HM7, CA, MGO, IPB ####[facility] (DEFAULT)[address] [place] [address] Osmolality [Osmolality] 268 mosm/kg Low 278-305 [facility] Comment on above: Performed By: #### C HM7, CA, MGO, IPB ####[facility] (DEFAULT)[address] [place] [address] Potassium [Moles/Vol] 4.2 mmol/L Normal 3.5-5.0 [facility] Comment on above: Performed By: #### C HM7, CA, MGO, IPB ####[facility] (DEFAULT)[address] [place] [address] Sodium [Moles/Vol] 127 mmol/L Low 135-145 [facility] Comment on above: Performed By: #### C HM7, CA, MGO, IPB ####[facility] (DEFAULT)[address] [place] [address] Urea nitrogen [Mass/Vol] 9 mg/dL Normal 7-25 [facility] Comment on above: Performed By: #### C HM7, CA, MGO, IPB ####[facility] (DEFAULT)[address] [place] [address] Urea nitrogen/Creatinine [Mass ratio] 21 mg/mg Normal [facility] Comment on above: Performed By: #### C HM7, CA, MGO, IPB ####[facility] (DEFAULT)[address] [place] [address] ECHOCARDIOGRAM LIMITED/FOLLO WUPon 06-01-2024 ECHOCARDIOGRAM LIMITED/FOLLOWUP Normal [facility] MAGNESIUMon 06-01-2024 Magnesium [Mass/Vol] 1.7 mg/dL 1.6 - 2 .6 mg/dL [facility] Magnesium [Mass/Vol] 1.7 mg/dL Normal 1.6-2.6 [facility] Comment on above: Performed By: #### C HM7, CA, MGO, IPB ####[facility] (DEFAULT)[address] [place] [address] No Panel Informationon 06-01 Interpretation and review of laboratory results Normal [facility] PHOSPHATE, INORGANICon 06-01 Phosphate [Mass/Vol] 4.2 mg/dL 2.2 - 4 .6 mg/dL [facility] Phosphorous 4.2 mg/dL Normal 2.2-4.6 [facility] Comment on above: Performed By: #### C HM7, CA, MGO, IPB ####[facility] (DEFAULT)[address] [place] [address] SURG PATH REQUESTOrdered By: Salome York on 06-01-2024 Case Report [facility] Clinical History p4zbkSDtMVLrfLTdBWlp Mlxhbn ZyVRZzeFDaW3FydcndEQypWE2p JT2obNtkdBDjzPXrCZZyUjUxi0 jge593zYPlf3bgWTVKlpmlsDr1 lZwnK99wd4S2JnstH6miPSKaSL hvYZApWSbimSFoGAi3DCZrhTIv raAuPaIfLKNwlXZlcXD1NBMmIF 1ucfbqPJglMDybQGHbfcO2HSLy wKBtY4XjTMCgLF9wnhcpUYR3EI ynRAHrBQC7GcPzEYPtd2Zpokz5 FpUycYz6i0wtZYSkKJEkoUsnu2 wvFPG6PXLivRAyI6gczO5iDSRa ID0tmwcao6ckQSyaQGdrOGTnjK B1epX6IQErpOSqH9XtaH9zXFRg ILAbsrOkeCrzvY6oLsUaHCiuOk UwNuMcq25pEHLhkjBTfLTcJtZh FBm0VHIlaHAocR0aPMHza0NtzL 7wQBciMUU5 [facility] For Immediate Release to Patient's MyChart? Yes Yes [facility] Gross Description g9tvlMQxZXWas3cdSTRx bGFuZz EwMzNcZnRuYmpcdWMxIHtccnRm VIgfmAidLZM4KWAeEE0zuHagfL s7nIqeYCExjqL5jCThGBhbd7cf KJQ3m9zbugzuPLAwNYjkGe5vdF WwrPcoMgXjOEQcLZv1nD35LBOp pF4xnXImRKfeczVeJUMlC5DxSZ 4wOBnsmCZdCEZ6nEueLDMvroqz EzK0FFqaNNVbjlmmZVm9HSscFZ HdxNX1JHRekVDzE9BpHBMlEE6j rmd0FGO5YSfeJEJbSmZ6KRPcyY MjCMSooMtwPRhjg254BPL5ArPc LRQcnhJdvSuqdG0xJjHjSBIlGC rbRWRlVWCtkQApGVjlQMHzP5Zq jbDnBWzeRB0aWDYmpy6xLMZydP XuZVOxkWHwROJgewQzyH9hbhH6 sOJyRTZbGPYqTCAhTK32F6Asdi AcMUUagxFpYPNfCTRueN3xVB08 lDYezt5dNWBlymqyFDQdN5GbLF ArW4DhLL2ttZLzIMPuGVLuwAOf bK2pbyGccsTnNJQpF92epPPfJU SwdBPocxKtWYKzd81tAPIoNABb z37kuLZ9dtZaDoMtCMKouxQ3QO 7htzXrMTHmBgQcbJykx7MyLKSr fwCfHKSkylgputmakD0gqSQhG0 UyAR9ySGK2wzuxFwTeBiXbU48a pLCbbR1jVJ40MBGdENY9mUIpDL WwLLK7BCIvU8XfVWborKB3PBRf a5IyZH8dILYwPwXiGBXcPwnwQL GjeOWbOEwvCoIHe7XwI49yjAln Ni8uPAJhEGH8SYkmLGDsNKJtzZ XgoAudmzGzGHrwy4UhF9FyAeRy MFxhbnNpXGRlZmxhbmcxMDMzXG H3dlHvRHGmZAniOGUbTBvyJu1b gIUxcPrgWsIjXMDbg5uowhOMqi bsjHa8v0scSGMnMnF6bLJaLOfb D1ztmvTtqLNkZAArGIm5wU84PU XcdD4ucBDtUVsikmZrJqH9PDgo TMVgMjG8HYTwpQSqIWPdG7otLS UaIHpxOZXpIDdnuEEuGKQ1rVwy e7Y6gDUrsBSlvAkzVoWjFmZaEn BTd4FnHMg1mCdjJ7JpMNYsXhH8 pKAkDQLfAAwjCPKiKYZlqfY7mA 71NPmttpY1vLEzl3Wbd31qv239 fF0zuHKfRNA8GQVnNYOifZEfLC PbOHA7NJQhqHVfN4deAKFaWA7x hgfzRTniHLjbXHCrxHV5APPnrH DjF5AmGRVvISdxBMAaiwx2FjBh Ia1mgIMitKhyOHerm3chn2qroR PtTbh1NKVfQmDiRuxdWJwwu4Mb m4xeBGFenz7dMKM1wYQewBdcf0 B5wDLrQEDdvHZkyeNtISMoEiZ3 VScuME7ljj37LRDtPDB7ev0elC XeeBaqygQltKAcMZpwX3ScCKQg k367JZLvA0UqZYRwk2S4agTnBf GbAYTueYF7ncZ4YZVcAPp6dROh foI5otBupLWaK8lwpE2ePWYsNL 7hzrnqb2smOHvtIXxlHWWrtVV2 cyX4QRBrwEFlM4WzgY1vZAIdHF pcGSPkmrj3BuVaOs0npLOofGhk MFxzYmtwYWdlXHBnbmNvbnRccG duZGVjXHBsYWluXHBsYWluXGYw EBEvPpTqdXkelXazdP0rKpAiPx OdIdmuPS5dFKUjD5lovOBdPZOs VFDfH9vpSqHmsF3smBhzTBhodi BbIEyee4OlNNWfUo3oWWXiiNDb F4OsROK7TID1LBGklMyuPKpmbC xuZXJccGFyfX0= [facility] Microscopic Description p9pepSFuKSZvgMEwYPobDekunz ElFIJocYXiZ1HpvqmfHPsyBV5v IM2ooPrmpECrsKOzJPNjEhEwk3 cei687lFLpt1dcCDGZbxjqcOl7 wClkO02wl2R6BrunS5nbJCDaOB khTVPxTUiauEIlFPn5FTRgfDGw pnEpLsJpMMPqqXDguZW7XPMhRB 6jfjawESqwDNgxZKMpghV7INTj qVSzQ4KuBTQkFT7lhzfxKXU0IF tyCGTrIHZ4KnGjMZDmk6Xqjfr5 MjBccGFyZFxwbGFpblxmczIwIE CtoHsyty1mQ87gkQUrMZkaxEvn IZJvh42zw3TdGIBicaZafi8oJC 4gXHBhclxjZjFccGFyXGNmMCBF r8Ryn2landGeJHUghWQcwiQuDK JbHCBqOQMkoq0oZHZ9QIKigtEa drGrUVU4y7GjFSLCMZIhkwJmWF DjmPCbjZNiABX5PK7chkKybBLc yWRsjWw7SRRooqIbwE1lyF1rjU jnmI7pwQVvjAE9lsjlc29eWg7c yKBmkQ7uDhx7NLDpOSTqggI+Ni BhbmQgPDcyIGhvdXJzIGlmIHBv g3LqYoanVCercSLfIFFtzM7ePL 7uAMFfXGZgaDfod6YyLGLwuT0n TCDdh91zBFAYDBRhX9DzgO8gME Tft4UxbEMeW0XpOUIvanETMfkd O7rbgaGdLQlRIQWtWkJbLOEKOn bfRb0mEHXUNAKrGDYZQOduZH5Z r79pGYVgrVwvVVUaKDD5PTT0sQ 6bXZG4n8RnqEMzraSbGPsefPZw S6JxvcTpd6VoNLZXLuQmwVBaXG L9UZgyEFCjCIuiHBGqbKRrNVJs ciBFUiwgdGhlIHBlcmNlbnRhZ2 Usf5SbeG4kaNFjlcIfnLHmg4Cr F7OfwIFjsRVpNVgptXEwe9Owzy VkIGFzIFxiIDwxJSBuZWdhdGl2 ZVxiMCAsXGIgIDEtMTAlIGxvdy Jjk3QvnZu0KJxoNVQgn1IoZFFq WnZlAFEvp3OelFk3VNUnJpOnBN 7mBAYlSHdyIEG5hRXqi9KgmrZu bCBzdGFpbmluZyBpbnRlbnNpdH vvzNHsK4Z4HHqfzpr7QTGtIKTm URPuy3Nii3sbDIRmRGgqPY3oMO VyYXRlXGIwICBvciBcYiBzdHJv bmdcYjAgLiBUaGVyZSBhcmUgbG fbnRBsBVMwQSBnAK8wFRCnXLTu rlAbLBjkVSTxfrDtyXXlo0XjCP 5lm8XzsI2eVUXlNNJmqYhes8z6 jDJbMGutgcReDOJidRQvTX1vVW LdCWNCCOB9xSNsr1Cyj53iHTS0 eRV5uUH5FYZ5jsBtdkQqdYHjfQ lxNDU1ZCUqk9PvQpboLBTjzfIn aXQsIHNvIHBhdGllbnRzIGFyZS Rog32tfISbppIlRQNydVdmJtbq BCSbtpMfwsNoP2NjoeLovXNwFH OrOO44EoMIrZZtPUIkbmYmTJT7 QSD5rLN2IWV6D9oug5TbnO29HM YkuiWfB6OwZ8EikxF1sGHqAQBm JFMeKWDls4JwmUJwTXQzGParmO Ubb1dmvvCweMFpnP4qQj98nCRd UMhpqwhduaTyywVcLdunrG2heL OfqfKcd1C4NF6siIT0FKNgNU7k ZNB6zWDqc7Cxa06jyQZbVyokEO QqpA2zUPFvlL6vaDTiKPHnGEOY JU5wI0T3kOMlWCEowxSltbIfSV TdhailPRToXa0xEMPVETE8iRAj bWOrI1PauWMpFNUkNkUut8HojG f9YFG5xW3sxtDcAMovFG62D5ra zAGltmPfB64xYISpURCiVNLhKL CpZK8pL5X7rDAnVRVnFNPmxeHr YiA+Ai9lMVTaa6GcwMn8BRRtQm AvNG3wUILyDLbrUPN6gLRmf2Ec cmFsbCBzdGFpbmluZyBpbnRlbn RbhWcnzKBnM4L0JJxpoio7JLPg KUWhYAEvk9Nhz6iiSSCvJYfbOC 1vZGVyYXRlXGIwICBvciBcYiBz dHJvbmdcYjAgLlxwYXJccGFyXG ViDJPFLDRaAVKfo2HajN9fLTzt xdIuw0bnwwReeeDpyhZfxGU9US RbXcygkCEfyBJrYJV8OO26iOXv jRw7ZCGkuV34pm4crEM7h0KzAI 4fg3KzwNBtpyGof5LnJKmtuv9k vFnuUUCaHr4eQX42LLTdPNK0Ia DpjJ20evWxiMXjeU3wj1pzcSIr DTAuEASxIdButd2hqNPnTNOtWC N0sQWqsXPxlUKljnsqUzCCLNXa lNVicvWcQPXzk73gQKEKYAGafe YyEry1AR8sna3uiS2bABodPXBc reVibvLsXU4oBZKiUfSosVKcDF WrsEKqHUB9HLolKRMfLXMkQGGh D85sXUQcBBSly6EnsN3aJMKkEG IJT25lE3IVPRWxzLFnacfaKdDS XU1dgeRqRKMuyFLjlfxfSzQlSe J9lB6jdgMnVZmqnwZutnZtZ14t ZWQgYXMgcmVhZGlseSBhcHByZW SeYBJhLAR6b7gjNpVyYIvicsYf s3tbhrFfLnsgG9PsbwVsTLKdir qdCZWfLL8bL7Z9iKNuMSazZUh+ ik9ms5ExeY5puddrn1MlzSUnUd GwygEit3QedH9mmyekyLdpjBPl c1x+kX0qw53dnAA4ZOUelcEbEs MpnqZfSaYcJEh9KQNnyvFkbFCa YmxlIGluIDwvPTEwJSBvZiBpbn Jvw2n1PKJ3aC0pwrLmWPkwv2k+ t9b7hYOoeKZ5xPXwZO3hzVGpwY Xqj9kddLRocMjglgXzQtV3nJXu YWSsGDSoM72gbBZay4x+XGIgbn VsbFx+XGIwIGlmIHRoZXJlIGlz VD6jHYH9dGTuo8Lwl27yGE0dII 4qTpC9rNZzHPmdi0asZFv+aWYg bJdcwpYydHViWAnmqlCso0lnfm rcldjjWTTjHYkkFPeepYx1OAhp KlAicghaB51avFkicRBukETsTr DjoaBzu3MnqK7piuunkEuezXBl qfIfTWtdrF9gENUinRxwaMOlS5 LbhAypsQAilS6xDmKxEZTwQhCk rrKcx6l9LTS3eE1amiPjCEqttd knlhboUPBhOBbthGOumv3aUMoh KYHwKT22OBFrBOAuQW5tNYTkHZ LbPLSghYCiFBOgYH7vqLOmLZ5n MDE4VZntjN8aSB3kr4LykvUnQV syHL4cNNLsc3YzcXUer5KeV0Ma xPS0GA9yJmAyRhLijO9eiLMsvb HfGASwFE0syFUtlG1fZDZdolWo YWwsIGNvbXBsZXRlLCBpbnRlbn OaWT6lvOJvTZ0iNWA5UBlkyQ4e JX4yb4VkirUmQKrjSRNnaG7yf7 qcasUvwQWgV07suQnjbB66xaIw q3J5xVN0iQ2sMEimyIdngmU+MT CzHY7kBYkuibDymFSsETA5oU0m IGNlbGxzLlx+LtKfDZU5HPBblm YfrrBpg6g0iIx+XGIgSEVSMiBJ BDZov2WryxToTatmVmGebaXcEA V7e6SrjAv5OEAgzSigKbigZOZv ciBIRVIyLXRhcmdldGVkIHRoZX QojZdtWX3DhaQeq4RsQ5RwM7Zx jzW8eMBmVChLLxMcUVnVJELxo5 OjCQRaPX6gBDOor1JgQTThZZRn GCVkAW5bC2E3aBOsHQlGHLNfRW S5vUOaJSYiVXGsekAsWVThCTKv cyvvZYcAWiOkfY47NSBdNE3tss XavSW7NVGhQRFfcMdoAosyEGKz ciBIRVIyLXRhcmdldGVkIHRoZX QceQnyJA4GfbPif3LxK7SzP3Ry fmY0eRD0VWYpUBc+XGIgSEVSMi K9qQEdLUuyj6xkDOg+zYX3WKLt IGVsaWdpYmxlIGZvciBIRVIyLX RhcmdldGVkIHRoZXJhcHkuXHBh clxjZjBccGFyIElmIHRoZSBzcG TgdV8ceiDjXJLbBcMgdzHiVNYk bGNpZmllZCwgZXhjZWVkcyBjb2 ecOSxoI2ptbDgeGPZtfVQwt9Ke jOScl6R5g9hzJPG5iJNbneFns7 4eHD2mBSHklyGvR1FfFm4iYLVr hr4jzZhtQSYohME5zY4bHFTjzW RuUFZaRWYpJTP0eLRtHKLnb1Su RRAwJZHfkeTqhiZgGPKvELP2lC KzFGHjjIVee36dVEZalBAwDHKk EQetjBIkHV8jeJNmTYXnLJWfhZ caZEUyMXYun5GqJWAvCJcctNRp AIElc0EsJ0uyZI0mNYVjeWNriG 4rlPSgbZJddM5isoIeEM9wABSj CJZvoXHqcnOhsqV5rRkllJE0bH JxC62yNWBbn4SfMW2aYc0auYrb zChfsaT7dW1dVDwbSYPck31pb6 7mPHFulrflNREhh1rnX3QgcWEe VDWeyQCdv754tb0fusAxaQ89PD UutZGpoTMhWWKaJBTyFEH2cJBu oChkGTKcfRPslL21iy8nsDV2x8 FaQC4ak4QvrBMpYJaDMFaoyS6q b3w3uJNjtIKjoXRbhkG2cQ5kTI pRN6liIHYskuYshFziaZ8tcZBr bYUicSK7FDW8npV5TWRpIYOwhq Rsj0EcARWakGXhtmAdUELjSUAc ziMmrk4bHJHhtSH8xMMhJ0FYAV ocqM9eekNUORCxE5IgHDGjyqPa xoHIgVluyZOxcADMCBBsjjN7l5 K3UNCSiQC1e1wcU4qyDL0dGEwC RkUBKQPoJMB2WJLDU1pwid7xqd FPa6TgSUALiCINSVqnHCIVm8b5 pKL0eeajO6atXENuFYHiAKHwsO ZXfB84cq8jxIKoibIbL3DwcGZg JRSkFOOcf7AnEKvkwaQwSMQ3VP zhgZCuWNU0ZENcRUYutiZslBQr Uq3viUPlIMG8YSLgTFZVZ0ZlQ4 F9qhMpKO1rXBqbQKntY9EejHMn PBJrvF2bG0CrTNeiEi0tZCGwat vgYXBolwHaMDRrhkzvhS3uQXV7 KVZqJg8mVUU8fSKUxtJjgZHvXQ ZxgWYbMcUjMMHEQKQ8QvOdWA2p HOofNQRby7TuFLBgyK1tjZPiDQ tdchGcOKD2R7ObxAYtj8IfCSAz JAKvSVsvdaXbrk30AZPlYO8bC3 uxHEEfXWTymEKgpwMggLIdg6Fm PBYnuVX8yWQaACFhRl0aWWKgeh MyTRC8NdTOIH3ttezjxFWdfGsx neZuKgLMKA3bRZamTNvtWt1fBR RvcnkgaXMgcmVndWxhdGVkIHVu ZGVyIENMSUEgYXMgcXVhbGlmaW CjNWXsRPMoifDpwo7kjFbykE3a c10mdIT3uKI3PCTwf5IbxvxzGA ZfEKP9LXX1roJkrvBptZAoVJWr a3CcN6dbkdgbMQhspYSoaR7yWL SdFRZuPBzqe2qrwKxnEP7spENt ZSByZWdhcmRlZCBhcyBpbnZlc3 DnA7G6jZ5dXVkjn3RpAd5xBDZa b6CfezMdAeSdlPFtHU7zp9zrF2 RscGFyXGJccGFyXGIwIFJlZmVy OF5mXWS8LCwaK6fzosPPugXanW 2kDgZwZUPPNL1iXDZ2JrTQOUiw IsWvCGauZMRarCMOPABjz5pzUD GaVC8dZV2uHwSrSKDXc8E2QVVq EROaNWreMgH2MTFwSISrdLXeLB AijkJzT0TzVOXukx6= [facility] Pathologic Diagnosis p8hhrGGxASRzzLFvYYk wMlxhbn EjGZOfdFYcV2IpylcjSMiqYR9z MQ3jjGygyHCtiLRvUUCmPfPyd0 jrn211ePRty6sdNEPFmaziaVy1 z5weGWSNnC4aq7z0zS32OXLruU 9ydGJsIDtccmVkMFxncmVlbjBc Csc2ZLD8mQmhJkufqRB6kCGxqV Y4JWlhr8MncElaoFeiQMycPUv8 HQQ2IVkcbCG6kYCjjYzllAKoCQ 0zw6lqjQP4yuChVCP2gOvjzVD2 mQujgxqym8loaPB4wKH3TGtucU O5OYndOgDwI7arTVHppD5qT13o R2nvVSXoiPivCSbrKCPwaLD2EQ T1KUByh0saBQUlhRAehJVfTfGs SVaoCsd4l9faQBWgvB55fDZgab X1aUxpYZpspeYlLTswTnPnVSWc MTgwfXtcbGlzdGxldmVsXGxldm NmntMrVjHsuHD8NKpkGcEnFzIt hDF0OAeqNfYivAP3OMabrEWvfU Z2VDfuxAS3AYf9RDe3MSdwSMgh Mgf9lXizsUL3NPscyE7rZVPbV7 2hWuXpLeLhLB05ODynb7AkDIZn aUajLQGjdV2dUsIzAZrbcjNkmc ZjbjIzXGxldmVsamMwXGxldmVs r4QjzfEzaMN2TYoxuiIvdJA8xK hmWJCyI1D2V934ZKkmhcNuvdVn PcTdnyp2MTTcMMTsDcJ2f0xjvI R5zZN9CFphnHI2DZejNzFrP7sy NVDzrR9fB96nX8qnMCTdwVosUP oyOWWctWD3ROK9FRGet0rcKJVb iUGwiZZuRwWvIEwaXmo8r1iaTB FkjU06sUTnbpW2nJiwLGmwaxWp fXtcbGlzdGxldmVsXGxldmVsbm MeAqSkuPI8RXitGkLnFhAkmHK9 NOgtKmPvzBA8PPcjuOUbyRP5FL utaKS0AIw7JYo2XUhgYYupCuu7 jRkzmYJ5MCkmwG4pMKLnH33vVb XgRlLzGA93TJoip3PbBQBbtHtk REPldB5eGnIpVEnhysGmjgRozk KsPZxdykHopiBkETwodyQng0Mo fgXhuMI3IHhoieZdpKQ8nFrsCS ZhF0D3I777VMsfxgEvtgZnQxUx byb0KGZkOZBkDzD9e8ihwZQ9wC U4ETtxuWJ6MXvmKmYeS5hkWCEc gT0sR27jW4mrAYIszXhaRVgmRW YekWW0WCF6ISKom3qvRPSdmDYo iXHbGyBpUCfyHqb6k0klDJXbtT 97sDMbjjK3dFhcBFmngsLrjUja bGlzdGxldmVsXGxldmVsbmZjMj GhwAX6OOqzRhRtVzJqfZE8QTnb IvMniOJ2MZyeaNWegVO1TUzipP Q5MLj8REm0OGwqCKyxEgo4uMuc jHW4LMiejN2yHLOnL88hWpArFp LgTG88LZdam3UjWSKitZtvCARj tS3sWxEzTLwmbnKtlrJwemCnCZ ymmpGunbSgTTjbolNds8ZakgDx nCU9DYxjoaAibIQ8tOhiKWImP7 R0W794EJvcuxOoyxNxLaMbcnn5 IASeCYLcKlC4zD97PNnkxVodcB 90DBRzsHOmbZLyaCN6PJwhoOga qG06WCUgsTVtOGyfu9BeSKE3VF O9XXZ7NUTjzItwfM52IUChrNDw K196ykFyGXspCQ14SAUedTDvwm UfVzDtKLZvnFEoyHT5ODCkBM2b qkptEKcoZMrbCEJxhzQ1VAMcpW FkJ0LsPSGsML6dexpxJJM9NCbx UAHzAPP5LpHoPCAze1Stpeu2Ub BccGFyZFxwbGFpblxiXGZzMjBc K9BfYUZwABoamtNkBKSlQSIey8 0qKDShl9DpzBhveVDeBXnaBqIr DTDmLTfiKDwpidM0XOufkbSxxJ a8wVAknKhrxQ0hMobkzoXzFU5l lKEnvGX5sEDjY6EbM7xlx91aAM 2pXJWnRZVqbFKgtnsgeO1iD2Ji XHBhclxsaTBcZmkwXGxpbjBcbH MwXGNmMFxwYXIgTWFudWFsIGlt aMTuv9moy0GwH7nrfZzmRTkpvG JzsjTlLnxzHKWrg46tgNEwljwt k1McoS6eFNZrwrCfrn1sILBouV LEN5UYQPRiGEAzf2YqSIUgWPvc mABpAKCxnRYiJ3EnXBFmL5YgtE 2cJoLRc8niuM2yfZBxocXoHZYk GHV4AZMrGTjtsHIia1f0yTpaaM TlGKEbi5gsp0Aohv0lXUFJYBGc cHRvcjogTmVnYXRpdmUgKDAlKV xwYXIgSEVSMjogTmVnYXRpdmUg SZMdv5SjTAKkHEpdWTZxFaVpuR OiHFFdW29hdLPnwVpzFA4icN9w tIqugR3iuKHgfQUsgIRihQIuil MmAw3vZXARRxXggeYaD7UHBTUx QFNpCFSyh7f0dCHkOEMofMXoo9 A6uI4cKOJjTLCtqUKgamymVNN7 LlxwYXJ9 [facility] Professional Interpretation Performed at: x5hanDZoAPUuxYIoAyVjOLQxIH Vpj4yyIPDryGPjYlNkHpElXnOp XnjweJMnFIKvQfXox6dwh790cN Mwd0thZRWaRlX6aEUoLAFuoGGg B644KUZqNKlwx6ddr7AiYJVsmG Mqn1N2XFSHhbbctYv0lTqgF59l n1D2GssmX8rsPQSpWNTcG1DjUE 5sNJStJsf7TWZ4AZB4DRMnATLs I0PhIX6zFONomLWmCZu9j3fjzC edKTWtFKD8b1cdDQoreePgLK7u gz2jtRi9c1hlizUgCJApXATciF WCGDWoW6DrkCjjYt5lmUy4bJcg YefpUZL5Trr4UI7amz03ole4eL leXTXxfqobBrK0JJrvGOYgfqta SUu9WAagKTNrgRB8CRSkcGClH5 PvKPQaOQ9zrhu4ZFX5ADenVJLk FzL3NNYijOZyWBXuqWiuKBlqs8 44OMF6NtJnVU0aT5Ufk1W8jR6g vTBhOOSdlBIiPzUzXXRtej9myV XoKNnqt0TrFVT6ndG6rXPqsBHi YNPyXL88Ngypa9SySsutIQW7SR VtzsKvo8Tsl2xdKpQhknHkL8ul E3AmKGAwLAGeTSYjOwNtccOzq3 Xkp4SxaYOikOr3d1aaNSKzIPMi rGuyr6wkRYN5CZCeT7R4tXFhw2 ptRLbtNEEpbWP7ffA9ELFgpMKo Y5RfiU3tSXBiWL6cmwe6p6qaPA P5UPuoTGNiLmR1myT5JAPpaJKf RBBdrUbdSOjgs334BWN5JdMwPQ Lbq0NdM2CzqUkzU34zwZgeG35s ZMIlxYalyP0imCkkuH7tKpEpEp MyNFxwYXJkXHBsYWluXGYxXGZz MjJcbGFuZzEwMzNcaGljaFxmMV hgDeHvFSPuNGzeN8erVnIaWmSk HiWFY8DqY0TRDoCGMM1WKZySEQ zeT9RCJJJKTHNEQF3RT0TGMSyZ Zg7YTWNNOmedfLFrMDGtTKJAGW N8LFXdzXmcVJRfSCIqsdFJw8k2 fAM9dcidX7azmdT5LwJdWXiqXL J9 [facility] Heart limitedOrdered By: Andreina Robert on 06-01-2024 Avg e' pk dorothy 0.11 m/s [facility] Work Phone: [phone] Avg E/e' ratio 7.12 [facility] Work Phone: [phone] Body surface area Derived from formula 1.56 m2 [facility] Work Phone: [phone] E wave decelartion time 209.00 msec [facility] Work Phone: [phone] e' lateral pk dorothy 0.0936 [facility]: [phone] e' lateral pk dorothy 0.09 [facility]: [phone] e' septal pk dorothy 0.1280 [facility]/s [facility]: [phone] e' septal pk dorothy 0.13 m/s [facility] Work Phone: [phone] E/A ratio 1.04 [facility] Work Phone: [phone] E/e' lateral ratio 8.23 [facility] Work Phone: [phone] E/e' septal [facility] 6.02 [facility]: [phone] EF SP 4CH 62 [facility] Work Phone: [phone] EST RAP 5.00 mmHg [facility] Work Phone: [phone] EST RVSP 41 mmHg [facility] Work Phone: [phone] FS 39 % [facility] Work Phone: [phone] IVC ostium 1.59 cm [facility] Work Phone: [phone] IVS 0.84 cm [facility] Work Phone: [phone] LV EDV SP 4CH 65 mL [facility] Work Phone: [phone] LV ESV SP 4CH 25 mL [facility] Work Phone: LV mass 84.40 g [facility] Work Phone: [phone] LV Mass Index 54.1 g/m2 [facility] Work Phone: [phone] LV RWT 0.50 [facility] Work Phone: [phone] LVIDD 3.53 cm [facility] Work Phone: [phone] LVIDS 2.17 cm [facility] Work Phone: [phone] MV pk A dorothy 0.74 m/s [facility] Work Phone: MV pk E dorothy 0.77 m/s [facility] Work Phone: PW 0.88 cm [facility] Work Phone: RV S' 15.20 cm/s [facility] Work Phone: TR pk grad 36 mmHg [facility] Work Phone: TR pk dorothy 3.00 m/s [facility] Work Phone: [facility] Work Phone: US Heart limitedon [facility] Radiology Study observation (narrative) [facility] CBC,PLATELETSon 05-31-2024 Erythrocyte distribution width (RBC) [Ratio] 15.7 % High 10.8 - 14.9 % [facility] Hematocrit (Bld) [Volume fraction] 26.6 % Low 34.9 - 44.3 % [facility] Hemoglobin (Bld) [Mass/Vol] 8.4 g/dL Low 11.4 - 15.2 g/dL [facility] Interpretation and review of laboratory results Abnormal [facility] MCH (RBC) [Entitic mass] 28.9 pg 25.9 - 33.9 pg [facility] MCHC (RBC) [Mass/Vol] 31.6 g/dL 31.4 - 35.9 g/dL [facility] MCV (RBC) [Entitic vol] 91.4 fL 79.6 - 97.7 fL [facility] Platelet mean volume (Bld) [Entitic vol] 8.7 fL 8.5 - 12.2 fL [facility] Platelets (Bld) [#/Vol] 289 10*3/uL 150 - 393 K/uL [facility] RBC (Bld) [#/Vol] 2.91 10*6/uL Low [facility] WBC (Bld) [#/Vol] 5.14 10*3/uL 3.99 - 11.19 K/uL [facility] Hematocrit (Bld) [Volume fraction] 26.6 % Low 34.9-44.3 [facility] Comment on above: Performed By: #### H [facility] ####[facility] (DEFAULT)[address] [place] [id number] Hemoglobin (Bld) [Mass/Vol] 8.4 g/dL Low 11.4-15.2 [facility] Comment on above: Performed By: #### H EMO ####[facility] (DEFAULT)[address] [place] [address] MCV (RBC) [Entitic vol] 91.4 fL Normal 79.6-97.7 [facility] Comment on above: Performed By: #### H EMO ####[facility] (DEFAULT)[address] [place] [address] Mean Cell Hgb 28.9 pg Normal 25.9-33.9 [facility] Comment on above: Performed By: #### H EMO ####[facility] (DEFAULT)[address] [place] [id number] Mean Cell Hgb Conc 31.6 g/dL Normal 31.4-35.9 [facility] Comment on above: Performed By: #### H EMO ####[facility] (DEFAULT)[address] [place] [address] Platelet mean volume (Bld) [Entitic vol] 8.7 fL Normal 8.5-12.2 [facility] Comment on above: Performed By: #### H EMO ####[facility] (DEFAULT)[address] [place] [address] Platelets (Bld) [#/Vol] 289 10*3/uL Normal 150-393 [facility] Comment on above: Performed By: #### H EMO ####[facility] (DEFAULT)[address] [place] [address] RBC (Bld) [#/Vol] 2.91 10*6/uL Low 3.91-5.04 [facility] Comment on above: Performed By: #### H EMO ####[facility] (DEFAULT)[address] [place] [address] RBC Distribution 15.7 % High 10.8-14.9 [facility] Comment on above: Performed By: #### H EMO ####[facility] (DEFAULT)[address] [place] [address] WBC (Bld) [#/Vol] 5.14 10*3/uL Normal 3.99-11.19 [facility] Comment on above: Performed By: #### H EMO ####[facility] (DEFAULT)[address] [place] [id number] CHEM 7 (LYTES,BUN,CREA,GLUC) on 05-31-2024 Anion gap [Moles/Vol] 9 mmol/L 7 - 17 mmol/L [facility] Chloride [Moles/Vol] 95 mmol/L Low 98 - 10 8 mmol/L [facility] CO2 [Moles/Vol] 31 mmol/L 21 - 31 mmol/L [facility] Creatinine [Mass/Vol] 0.30 mg/dL Low 0.50 - 1.20 mg/dL [facility] eGFR, CKD-EPI, Female - PINF [facility] Glucose [Mass/Vol] 95 mg/dL 70 - 99 mg/dL [facility] Osmolality Calc [Osmolality] 273 Low [facility] Potassium [Moles/Vol] 3.8 mmol/L 3.5 - 5.0 mmol/L [facility] Sodium [Moles/Vol] 131 mmol/L Low 135 - 145 mmol/L [facility] Urea nitrogen [Mass/Vol] 5 mg/dL Low 7 - 25 mg/dL [facility] Urea nitrogen/Creatinine [Mass ratio] 17 mg/mg [facility] Anion gap [Moles/Vol] 9 mmol/L Normal 7-17 [facility] Comment on above: Performed By: #### I PB, MGO, CHM7, HFP ####[facility] (DEFAULT)[address] [place] [address] Chloride [Moles/Vol] 95 mmol/L Low 98-108 [facility] Comment on above: Performed By: #### I PB, MGO, CHM7, HFP ####[facility] (DEFAULT)[address] [place] [address] CO2 [Moles/Vol] 31 mmol/L Normal 21-31 [facility] Comment on above: Performed By: #### I PB, MGO, CHM7, HFP ####[facility] (DEFAULT)[address] [place] [address] Creatinine [Mass/Vol] 0.30 mg/dL Low 0.50-1.20 [facility] Comment on above: Performed By: #### I PB, MGO, CHM7, HFP ####[facility] (DEFAULT)[address] [place] [address] eGFR, CKD-EPI, Female > Normal >=60 [facility] Comment on above: Result Comment: Repo rted eGFR is based on the CKD-EPI 2020 equation using creatinine, age, and sex. Performed By: #### I PB, MGO, CHM7, HFP ####[facility] (DEFAULT)[address] [place] [address] Glucose [Mass/Vol] 95 mg/dL Normal 70-99 [facility] Comment on above: Performed By: #### I PB, MGO, CHM7, HFP ####[facility] (DEFAULT)[address] [place] [address] Osmolality [Osmolality] 273 mosm/kg Low 278-305 [facility] Comment on above: Performed By: #### I PB, MGO, CHM7, HFP ####[facility] (DEFAULT)[address] [place] [address] Potassium [Moles/Vol] 3.8 mmol/L Normal 3.5-5.0 [facility] Comment on above: Performed By: #### I PB, MGO, CHM7, HFP ####[facility] (DEFAULT)[address] [place] [address] Sodium [Moles/Vol] 131 mmol/L Low 135-145 [facility] Comment on above: Performed By: #### I PB, MGO, CHM7, HFP ####[facility] (DEFAULT)[address] [place] [address] Urea nitrogen [Mass/Vol] 5 mg/dL Low 7-25 [facility] Comment on above: Performed By: #### I PB, MGO, CHM7, HFP ####[facility] (DEFAULT)[address] [place] [address] Urea nitrogen/Creatinine [Mass ratio] 17 mg/mg Normal [facility] Comment on above: Performed By: #### I PB, MGO, CHM7, HFP ####[facility] (DEFAULT)[address] [place] [address] CT HEAD WITHOUT CONTRASTon 1 CT HEAD WITHOUT CONTRAST Normal [facility] CT Head WO contraston 2023 RADIOLOGY RADIOLOGY [facility] Radiology Study observation (narrative) [facility] Head WO contrastOrdered B y: Anival Frost on 05-31-2024 [facility] Work Phone: EXTRA LAVENDER TOPon 024 [facility] HEPATIC FUNCTION PANELon Albumin [Mass/Vol] 2.6 g/dL Low 3.5 - 5.0 g/dL [facility] ALP [Catalytic activity/Vol] 311 U/L High 32 - 126 U/L [facility] ALT [Catalytic activity/Vol] 22 U/L 9 - 48 U/L [facility] AST [Catalytic activity/Vol] 31 U/L 10 - 39 U/L [facility] Bilirubin [Mass/Vol] 0.3 mg/dL [facility] - 1.5 mg/dL [facility] Bilirubin.direct [Mass/Vol] mg/dL NINF - 0.3 mg/dL [facility] Protein [Mass/Vol] 4.9 g/dL Low 6.4 - 8.3 g/dL [facility] Albumin [Mass/Vol] 2.6 g/dL Low 3.5-5.0 [facility] Comment on above: Performed By: #### I PB, MGO, CHM7, HFP ####[facility] (DEFAULT)[address] [place] [address] ALP [Catalytic activity/Vol] 311 U/L High 32-126 [facility] Comment on above: Performed By: #### I PB, MGO, CHM7, HFP ####[facility] (DEFAULT)[address] [place] [address] ALT [Catalytic activity/Vol] 22 U/L Normal 9-48 [facility] Comment on above: Performed By: #### I PB, MGO, CHM7, HFP ####[facility] (DEFAULT)[address] [place] [address] AST [Catalytic activity/Vol] 31 U/L Normal 10-39 [facility] Comment on above: Performed By: #### I PB, MGO, CHM7, HFP ####[facility] (DEFAULT)[address] [place] [address] Bilirubin [Mass/Vol] 0.3 mg/dL Normal <1.5 [facility] Comment on above: Performed By: #### I PB, MGO, CHM7, HFP ####[facility] (DEFAULT)[address] [place] [address] Bilirubin Direct < Normal <0.3 [facility] Comment on above: Performed By: #### I PB, MGO, CHM7, HFP ####[facility] (DEFAULT)[address] [place] [address] Protein [Mass/Vol] 4.9 g/dL Low 6.4-8.3 [facility] Comment on above: Performed By: #### I PB, MGO, CHM7, HFP ####[facility] (DEFAULT)[address] [place] [address] IONIZED CALCIUM, SERUMon Calcium.ionized (Bld) [Moles/Vol] 4.56 mg/dL Low 4.60 - 5.30 mg/dL [facility] Interpretation and review of laboratory results Abnormal [facility] ICA 4.56 mg/dL Low 4.60-5.30 [facility] Comment on above: Performed By: #### I CASST ####[facility] (DEFAULT)[address] [place] [address] MAGNESIUMon 05-31-2024 Magnesium [Mass/Vol] 1.7 mg/dL 1.6 - 2 .6 mg/dL [facility] Magnesium [Mass/Vol] 1.7 mg/dL Normal 1.6-2.6 [facility] Comment on above: Performed By: #### I PB, MGO, CHM7, HFP ####[facility] (DEFAULT)[address] [place] [id number] No Panel Informationon 05-31 Interpretation and review of laboratory results Abnormal [facility] Interpretation and review of laboratory results Normal [facility] PHOSPHATE, INORGANICon 05-31 Phosphate [Mass/Vol] 4.1 mg/dL 2.2 - 4 .6 mg/dL [facility] Phosphorous 4.1 mg/dL Normal 2.2-4.6 [facility] Comment on above: Performed By: #### I PB, MGO, CHM7, HFP ####[facility] (DEFAULT)[address] [place] [address] VENOUS BLOOD GASon Base excess Calc (Bld) [Moles/Vol] 4.8 mmol/L High -3.0 - 3.0 mmol/L [facility] CO2 (Bld) [Partial pressure] 55 mm[Hg] High [facility] HCO3 (Bld) [Moles/Vol] 30 mmol/L High 22 - 29 mmol/L [facility] Interpretation and review of laboratory results Abnormal [facility] Oxygen (Bld) [Partial pressure] 36 mm[Hg] mm Hg [facility] Oxygen saturation in Blood 55 % Low 70 - 80 % [facility] pH (Bld) 7.35 [pH] 7.32 - 7.43 [facility] Specimen source Nom (Unsp spec) Venous [facility] Base Excess 4.8 mmol/L High -3.0-3.0 [facility] Comment on above: Performed By: #### G ASV5 ####[facility] (DEFAULT)[address] [place] [address] HCO3 (Bld) [Moles/Vol] 30 mmol/L High 22-29 [facility] Comment on above: Performed By: #### G ASV5 ####[facility] (DEFAULT)[address] [place] [address] Oxygen saturation in Blood 55 % Low 70-80 [facility] Comment on above: Performed By: #### G ASV5 ####[facility] (DEFAULT)[address] [place] [address] pCO2, Venous 55 mm Hg High 36-52 [facility] Comment on above: Performed By: #### G ASV5 ####[facility] (DEFAULT)[address] [place] [address] pH, Venous 7.35 Normal 7.32-7.43 [facility] Comment on above: Performed By: #### G ASV5 ####[facility] (DEFAULT)[address] [place] [address] pO2, Venous 36 mm Hg Normal [facility] Comment on above: Result Comment: Veno us pO2 is not recommended for the evaluation of oxygen status, clinical correlation is recommended. Performed By: #### G ASV5 ####[facility] (DEFAULT)[address] [place] [address], [place] [address] Specimen type Nom (Spec) Venous Normal [facility] Comment on above: Performed By: #### G ASV5 ####[facility] (DEFAULT)[address] [place] [address], [place] [address] CBC,PLATELETSon 05-30-2024 Erythrocyte distribution width (RBC) [Ratio] 15.7 % High 10.8 - 14.9 % [facility] Hematocrit (Bld) [Volume fraction] 30.0 % Low 34.9 - 44.3 % [facility] Hemoglobin (Bld) [Mass/Vol] 9.5 g/dL Low 11.4 - 15.2 g/dL [facility] Interpretation and review of laboratory results Abnormal [facility] MCH (RBC) [Entitic mass] 29.2 pg 25.9 - 33.9 pg [facility] MCHC (RBC) [Mass/Vol] 31.7 g/dL 31.4 - 35.9 g/dL [facility] MCV (RBC) [Entitic vol] 92.3 fL 79.6 - 97.7 fL [facility] Platelet mean volume (Bld) [Entitic vol] 8.4 fL Low 8.5 - 12.2 fL [facility] Platelets (Bld) [#/Vol] 362 10*3/uL 150 - 393 K/uL [facility] RBC (Bld) [#/Vol] 3.25 10*6/uL Low [facility] WBC (Bld) [#/Vol] 5.49 10*3/uL 3.99 - 11.19 K/uL [facility] Hematocrit (Bld) [Volume fraction] 30.0 % Low 34.9-44.3 [facility] Comment on above: Performed By: #### H [facility] ####[facility] (DEFAULT)[address] [place] [address] Hemoglobin (Bld) [Mass/Vol] 9.5 g/dL Low 11.4-15.2 [facility] Comment on above: Performed By: #### H [facility] ####[facility] (DEFAULT)[address] [place] [address] MCV (RBC) [Entitic vol] 92.3 fL Normal 79.6-97.7 [facility] Comment on above: Performed By: #### H [facility] ####[facility] (DEFAULT)[address] [place] [address] Mean Cell Hgb 29.2 pg Normal 25.9-33.9 [facility] Comment on above: Performed By: #### H EMOGC ####[facility] (DEFAULT)[address] [place] [address] Mean Cell Hgb Conc 31.7 g/dL Normal 31.4-35.9 [facility] Comment on above: Performed By: #### H EMOGC ####[facility] (DEFAULT)[address] [place] [address] Platelet mean volume (Bld) [Entitic vol] 8.4 fL Low 8.5-12.2 [facility] Comment on above: Performed By: #### H EMOGC ####[facility] (DEFAULT)[address] [place] [address] Platelets (Bld) [#/Vol] 362 10*3/uL Normal 150-393 [facility] Comment on above: Performed By: #### H EMOGC ####[facility] (DEFAULT)[address] [place] [address] RBC (Bld) [#/Vol] 3.25 10*6/uL Low 3.91-5.04 [facility] Comment on above: Performed By: #### H EMOGC ####[facility] (DEFAULT)[address] [place] [address] RBC Distribution 15.7 % High 10.8-14.9 [facility] Comment on above: Performed By: #### H EMOGC ####[facility] (DEFAULT)[address] [place] [address] WBC (Bld) [#/Vol] 5.49 10*3/uL Normal 3.99-11.19 [facility] Comment on above: Performed By: #### H EMOGC ####[facility] (DEFAULT)[address] [place] [address] CHEM 7 (LYTES,BUN,CREA,GLUC) on 05-30-2024 Anion gap [Moles/Vol] 12 mmol/L 7 - 17 mmol/L [facility] Chloride [Moles/Vol] 94 mmol/L Low 98 - 10 8 mmol/L [facility] CO2 [Moles/Vol] 31 mmol/L 21 - 31 mmol/L [facility] Creatinine [Mass/Vol] 0.39 mg/dL Low 0.50 - 1.20 mg/dL [facility] eGFR, CKD-EPI, Female - PINF [facility] Glucose [Mass/Vol] 109 mg/dL High 70 - 99 mg/dL [facility] Interpretation and review of laboratory results Abnormal [facility] Osmolality Calc [Osmolality] 278 [facility] Potassium [Moles/Vol] 4.0 mmol/L 3.5 - 5.0 mmol/L [facility] Sodium [Moles/Vol] 133 mmol/L Low 135 - 145 mmol/L [facility] Urea nitrogen [Mass/Vol] 6 mg/dL Low 7 - 25 mg/dL [facility] Urea nitrogen/Creatinine [Mass ratio] 15 mg/mg [facility] Anion gap [Moles/Vol] 12 mmol/L Normal 7-[address] [facility] Comment on above: Performed By: #### C HM7, IPB, B12B, MGO, TSH, FT4 ####[facility] (DEFAULT)[address] [place] [address] Chloride [Moles/Vol] 94 mmol/L Low 98-108 [facility] Comment on above: Performed By: #### C HM7, IPB, B12B, MGO, TSH, FT4 ####[facility] (DEFAULT)[address] [place] [address] CO2 [Moles/Vol] 31 mmol/L Normal 21-31 [facility] Comment on above: Performed By: #### C HM7, IPB, B12B, MGO, TSH, FT4 ####[facility] (DEFAULT)[address] [place] [address] Creatinine [Mass/Vol] 0.39 mg/dL Low 0.50-1.20 [facility] Comment on above: Performed By: #### C HM7, IPB, B12B, MGO, TSH, FT4 ####[facility] (DEFAULT)[address] [place] [address] eGFR, CKD-EPI, Female > Normal >=60 [facility] Comment on above: Result Comment: Repo rted eGFR is based on the CKD-EPI 2020 equation using creatinine, age, and sex. Performed By: #### C HM7, IPB, B12B, MGO, TSH, FT4 ####[facility] (DEFAULT)[address] [place] [address] Glucose [Mass/Vol] 109 mg/dL High 70-99 [facility] Comment on above: Performed By: #### C HM7, IPB, B12B, MGO, TSH, FT4 ####[facility] (DEFAULT)[address] [place] [address] Osmolality [Osmolality] 278 mosm/kg Normal 278-305 [facility] Comment on above: Performed By: #### C HM7, IPB, B12B, MGO, TSH, FT4 ####[facility] (DEFAULT)[address] [place] [address] Potassium [Moles/Vol] 4.0 mmol/L Normal 3.5-5.0 [facility] Comment on above: Performed By: #### C HM7, IPB, B12B, MGO, TSH, FT4 ####[facility] (DEFAULT)[address] [place] [address] Sodium [Moles/Vol] 133 mmol/L Low 135-145 [facility] Comment on above: Performed By: #### C HM7, IPB, B12B, MGO, TSH, FT4 ####[facility] (DEFAULT)[address] [place] [address] Urea nitrogen [Mass/Vol] 6 mg/dL Low 7-25 [facility] Comment on above: Performed By: #### C HM7, IPB, B12B, MGO, TSH, FT4 ####[facility] (DEFAULT)[address] [place] [address] Urea nitrogen/Creatinine [Mass ratio] 15 mg/mg Normal [facility] Comment on above: Performed By: #### C HM7, IPB, B12B, MGO, TSH, FT4 ####[facility] (DEFAULT)[address] [place] [address] EXTRA MICROon 05-30-2024 [facility] FOLATE, SERUMon 05-30-2024 Folate [Mass/Vol] 12.32 ng/mL 5.38 - PINF ng/mL [facility] Interpretation and review of laboratory results Normal [facility] Folate 12.32 ng/mL Normal >5.38 [facility] Comment on above: Performed By: #### OSITO POLANCO ####[facility] (DEFAULT)[address] [place] [address] IONIZED CALCIUM, SERUMon Calcium.ionized (Bld) [Moles/Vol] 5.08 mg/dL 4.60 - 5.30 mg/dL [facility] Interpretation and review of laboratory results Normal [facility] ICA 5.08 mg/dL Normal 4.60-5.30 [facility] Comment on above: Performed By: #### DELVIN POLANCOSB ####[facility] (DEFAULT)[address] [place] [address] MAGNESIUMon 05-30-2024 Magnesium [Mass/Vol] 1.7 mg/dL 1.6 - 2 .6 mg/dL [facility] Magnesium [Mass/Vol] 1.7 mg/dL Normal 1.6-2.6 [facility] Comment on above: Performed By: #### C HM7, IPB, B12B, MGO, TSH, FT4 ####[facility] (DEFAULT)[address] [place] [id number] No Panel Informationon 05-30 Interpretation and review of laboratory results Normal [facility] PHOSPHATE, INORGANICon 05-30 Phosphate [Mass/Vol] 3.4 mg/dL 2.2 - 4 .6 mg/dL [facility] Phosphorous 3.4 mg/dL Normal 2.2-4.6 [facility] Comment on above: Performed By: #### C HM7, IPB, B12B, MGO, TSH, FT4 ####[facility] (DEFAULT)[address] [place] [address] T4 FREEon 05-30-2024 Free T4 [Mass/Vol] 0.93 ng/dL 0.89 - 1.76 ng/dL [facility] Interpretation and review of laboratory results Normal [facility] Free T4 [Mass/Vol] 0.93 ng/dL Normal 0.89-1.76 [facility] Comment on above: Performed By: #### C HM7, IPB, B12B, MGO, TSH, FT4 ####[facility] (DEFAULT)[address] [place] [address] TSHon 05-30-2024 Interpretation and review of laboratory results Abnormal [facility] TSH Qn 0.061 m[IU]/L Low [facility] TSH 0.061 uIU/mL Low 0.550-4.78 0 [facility] Comment on above: Performed By: #### C HM7, IPB, B12B, MGO, TSH, FT4 ####[facility] (DEFAULT)[address] [place] [address] URINALYSIS REFLEX TO CULTURE PERFORMABLEon 05-30-2024 Appearance (U) Clear Clear [facility] Bacteria LM Ql (Urine sed) ABSENT ABSENT [facility] Color (U) Yellow Yellow [facility] Epithelial cells.squamous LM Ql (Urine sed) 0-2/hpf 0-2/hpf, 3-5/hpf = 1+ [facility] Glucose Test strip (U) [Mass/Vol] Negative Negative [facility] Interpretation and review of laboratory results Abnormal [facility] Ketones (U) [Mass/Vol] Negative Negative [facility] Leukocyte esterase Test strip Ql (U) Negative [facility] Nitrite Ql (U) Negative Negative [facility] pH (U) 7.5 [pH] Abnormal 5.0 - 7.0 [facility] Protein (U) [Mass/Vol] Negative Negative OS [facility] RBC (U) [#/Vol] Negative [facility] RBC LM.HPF (Urine sed) [#/Area] 0-2 [facility] Specific gravity (U) [Rel density] 1.004 1.001 - 1.035 [facility] Urobilinogen (U) [Mass/Vol] 0.2 E.U./dL 0.2 E.U/dL, 1.0 E.U/dL [facility] WBC LM.HPF (Urine sed) [#/Area] 0 - 5 [facility] Appearance (U) Clear Normal Clear [facility] Comment on above: Order Comment: For i ndwelling catheters, specimen collection is acceptable on catheter day 1 and 2 only. ? Performed By: #### U [id number] ####[facility] (DEFAULT)[address] [place] [address] Bacteria ABSENT Normal ABSENT [facility] Comment on above: Order Comment: For i ndwelling catheters, specimen collection is acceptable on catheter day 1 and 2 only. ? Performed By: #### U [id number] ####[facility] (DEFAULT)[address] [place] [address] Blood Urine Negative Normal Negative [facility] Comment on above: Order Comment: For i ndwelling catheters, specimen collection is acceptable on catheter day 1 and 2 only. ? Performed By: #### U [id number] ####[facility] (DEFAULT)[address] [place] [address] Color (U) Yellow Normal Yellow [facility] Comment on above: Order Comment: For i ndwelling catheters, specimen collection is acceptable on catheter day 1 and 2 only. ? Performed By: #### U [id number] ####[facility] (DEFAULT)[address] [place] [address] Glucose Ql (U) Negative Normal Negative [facility] Comment on above: Order Comment: For i ndwelling catheters, specimen collection is acceptable on catheter day 1 and 2 only. ? Performed By: #### U [id number] ####[facility] (DEFAULT)[address] [place] [address] Ketones Ql (U) Negative Normal Negative [facility] Comment on above: Order Comment: For i ndwelling catheters, specimen collection is acceptable on catheter day 1 and 2 only. ? Performed By: #### U [id number] ####[facility] (DEFAULT)[address] [place] [address] Leukocyte esterase Test strip Ql (U) Negative Normal Negative [facility] Comment on above: Order Comment: For i ndwelling catheters, specimen collection is acceptable on catheter day 1 and 2 only. ? Performed By: #### U [id number] ####[facility] (DEFAULT)[address] [place] [address] Nitrites Urine Negative Normal Negative [facility] Comment on above: Order Comment: For i ndwelling catheters, specimen collection is acceptable on catheter day 1 and 2 only. ? Performed By: #### U [id number] ####[facility] (DEFAULT)[address] [place] [address] pH (U) 7.5 [pH] Abnormal 5.0-7.0 [facility] Comment on above: Order Comment: For i ndwelling catheters, specimen collection is acceptable on catheter day 1 and 2 only. ? Performed By: #### U [id number] ####[facility] (DEFAULT)[address] [place] [address] Protein Urine Negative Normal Negative [facility] Comment on above: Order Comment: For i ndwelling catheters, specimen collection is acceptable on catheter day 1 and 2 only. ? Performed By: #### U [id number] ####[facility] (DEFAULT)[address] [place] [address] RBC Urine 0-2 Normal 0-2 [facility] Comment on above: Order Comment: For i ndwelling catheters, specimen collection is acceptable on catheter day 1 and 2 only. ? Performed By: #### U [id number] ####[facility] (DEFAULT)[address] [place] [address] Specific [place] Urine 1.004 Normal 1.001 -1.03 5 [facility] Comment on above: Order Comment: For i ndwelling catheters, specimen collection is acceptable on catheter day 1 and 2 only. ? Performed By: #### U [id number] ####[facility] (DEFAULT)[address] [place] [address] Squamous/Epithelial Cells 0-2/hpf Normal 0-2/hpf, 3-5/hpf = 1+ [facility] Comment on above: Order Comment: For i ndwelling catheters, specimen collection is acceptable on catheter day 1 and 2 only. ? Performed By: #### U [id number] ####[facility] (DEFAULT)[address] [place] [address] Urobilinogen Urine 0.2 E.U./dL Normal 0.2 E.U/dL, 1.0 E.U/dL [facility] Comment on above: Order Comment: For i ndwelling catheters, specimen collection is acceptable on catheter day 1 and 2 only. ? Performed By: #### U [id number] ####[facility] (DEFAULT)[address] [place] [address] WBC Urine 0 - 5 Normal 0 - 5 [facility] Comment on above: Order Comment: For i ndwelling catheters, specimen collection is acceptable on catheter day 1 and 2 only. ? Performed By: #### U [id number] ####[facility] (DEFAULT)[address] [place] [address] VITAMIN B12on 05-30-2024 Cobalamin (Vitamin B12) [Mass/Vol] 673 pg/mL 211 - 911 pg/mL [facility] Interpretation and review of laboratory results Normal [facility] Cobalamin (Vitamin B12) [Mass/Vol] 673 pg/mL Normal 211-911 [facility] Comment on above: Result Comment: Test ing of Methylmalonic Acid and Intrinsic Factor Blocking Antibody are recommended if clinical suspicion for pernicious anemia due to B12 deficiency is high for patients with intermediate B12 levels (211 to 400 pg/mL) to rule out spurious heterophile antibodies. Performed By: #### C HM7, IPB, B12B, MGO, TSH, FT4 ####[facility] (DEFAULT)[address] [place] [address] CBC,PLATELETSon 05-29-2024 Erythrocyte distribution width (RBC) [Ratio] 15.8 % High 10.8 - 14.9 % [facility] Hematocrit (Bld) [Volume fraction] 28.4 % Low 34.9 - 44.3 % [facility] Hemoglobin (Bld) [Mass/Vol] 8.8 g/dL Low 11.4 - 15.2 g/dL [facility] Interpretation and review of laboratory results Abnormal [facility] MCH (RBC) [Entitic mass] 28.4 pg 25.9 - 33.9 pg [facility] MCHC (RBC) [Mass/Vol] 31.0 g/dL Low 31.4 - 35.9 g/dL [facility] MCV (RBC) [Entitic vol] 91.6 fL 79.6 - 97.7 fL [facility] Platelet mean volume (Bld) [Entitic vol] 8.4 fL Low 8.5 - 12.2 fL [facility] Platelets (Bld) [#/Vol] 372 10*3/uL 150 - 393 K/uL [facility] RBC (Bld) [#/Vol] 3.10 10*6/uL Low [facility] WBC (Bld) [#/Vol] 4.91 10*3/uL 3.99 - 11.19 K/uL [facility] Hematocrit (Bld) [Volume fraction] 28.4 % Low 34.9-44.3 [facility] Comment on above: Performed By: #### H EMO ####[facility] (DEFAULT)[address] [place] [address] Hemoglobin (Bld) [Mass/Vol] 8.8 g/dL Low 11.4-15.2 [facility] Comment on above: Performed By: #### H EMO ####[facility] (DEFAULT)[address] [place] [address] MCV (RBC) [Entitic vol] 91.6 fL Normal 79.6-97.7 [facility] Comment on above: Performed By: #### H EMO ####[facility] (DEFAULT)[address] [place] [address] Mean Cell Hgb 28.4 pg Normal 25.9-33.9 [facility] Comment on above: Performed By: #### H EMO ####[facility] (DEFAULT)[address] [place] [address] Mean Cell Hgb Conc 31.0 g/dL Low 31.4-35.9 [facility] Comment on above: Performed By: #### H EMOGC ####[facility] (DEFAULT)[address] [place] [address] Platelet mean volume (Bld) [Entitic vol] 8.4 fL Low 8.5-12.2 [facility] Comment on above: Performed By: #### H [facility] ####[facility] (DEFAULT)[address] [place] [address] Platelets (Bld) [#/Vol] 372 10*3/uL Normal 150-393 [facility] Comment on above: Performed By: #### H EMO ####[facility] (DEFAULT)[address] [place] [address] RBC (Bld) [#/Vol] 3.10 10*6/uL Low 3.91-5.04 [facility] Comment on above: Performed By: #### H [facility] ####[facility] (DEFAULT)[address] [place] [address] RBC Distribution 15.8 % High 10.8-14.9 [facility] Comment on above: Performed By: #### H [facility] ####[facility] (DEFAULT)[address] [place] [address] WBC (Bld) [#/Vol] 4.91 10*3/uL Normal 3.99-11.19 [facility] Comment on above: Performed By: #### H [facility] ####[facility] (DEFAULT)[address] [place] [address] CHEM 7 (LYTES,BUN,CREA,GLUC) on 05-29-2024 Anion gap [Moles/Vol] 11 mmol/L 7 - 17 mmol/L [facility] Chloride [Moles/Vol] 95 mmol/L Low 98 - 10 8 mmol/L [facility] CO2 [Moles/Vol] 29 mmol/L 21 - 31 mmol/L [facility] Creatinine [Mass/Vol] 0.36 mg/dL Low 0.50 - 1.20 mg/dL [facility] eGFR, CKD-EPI, Female - PINF [facility] Glucose [Mass/Vol] 116 mg/dL High 70 - 99 mg/dL [facility] Interpretation and review of laboratory results Abnormal [facility] [facility] Osmolality Calc [Osmolality] 274 Low [facility] Potassium [Moles/Vol] 4.0 mmol/L 3.5 - 5.0 mmol/L [facility] Sodium [Moles/Vol] 131 mmol/L Low 135 - 145 mmol/L [facility] Urea nitrogen [Mass/Vol] 5 mg/dL Low 7 - 25 mg/dL [facility] Urea nitrogen/Creatinine [Mass ratio] 14 mg/mg [facility] Anion gap [Moles/Vol] 11 mmol/L Normal 7-17 [facility] Comment on above: Performed By: #### DOMO LONG, IPB ####[facility] (DEFAULT)[address] [place] [address] Chloride [Moles/Vol] 95 mmol/L Low 98-108 [facility] Comment on above: Performed By: #### DOMO LONG, IPB ####[facility] (DEFAULT)[address] [place] [address] CO2 [Moles/Vol] 29 mmol/L Normal 21-31 [facility] Comment on above: Performed By: #### DOMO LONG, IPB ####[facility] (DEFAULT)[address] [place] [address] Creatinine [Mass/Vol] 0.36 mg/dL Low 0.50-1.20 [facility] Comment on above: Performed By: #### DOMO LONG, IPB ####[facility] (DEFAULT)[address] [place] [address] eGFR, CKD-EPI, Female > Normal >=60 [facility] Comment on above: Result Comment: Repo rted eGFR is based on the CKD-EPI 2020 equation using creatinine, age, and sex. Performed By: #### DOMO LONG, IPB ####[facility] (DEFAULT)[address] [place] [address] Glucose [Mass/Vol] 116 mg/dL High 70-99 [facility] Comment on above: Performed By: #### DOMO LONG, IPB ####[facility] (DEFAULT)[address] [place] [address] Osmolality [Osmolality] 274 mosm/kg Low 278-305 [facility] Comment on above: Performed By: #### DOMO LONG, IPB ####[facility] (DEFAULT)[address] [place] [address] Potassium [Moles/Vol] 4.0 mmol/L Normal 3.5-5.0 [facility] Comment on above: Performed By: #### DOMO LONG, IPB ####[facility] (DEFAULT)[address] [place] [address] Sodium [Moles/Vol] 131 mmol/L Low 135-145 [facility] Comment on above: Performed By: #### DOMO LONG, IPB ####[facility] (DEFAULT)[address] [place] [address] Urea nitrogen [Mass/Vol] 5 mg/dL Low 7-25 [facility] Comment on above: Performed By: #### Gila HMEwa MGO, IPB ####[facility] (DEFAULT)[address] [place] [address] Urea nitrogen/Creatinine [Mass ratio] 14 mg/mg Normal [facility] Comment on above: Performed By: #### Gila WANG MGO, IPB ####[facility] (DEFAULT)[address] [place] [address] HEMOGLOBIN & HEMATOCRITon Hematocrit (Bld) [Volume fraction] 29.0 % Low 34.9 - 44.3 % [facility] Hemoglobin (Bld) [Mass/Vol] 9.2 g/dL Low 11.4 - 15.2 g/dL [facility] Interpretation and review of laboratory results Abnormal [facility] Hematocrit (Bld) [Volume fraction] 29.0 % Low 34.9-44.3 [facility] Comment on above: Performed By: #### H H ####[facility] (DEFAULT)[address] [place] [address] Hemoglobin (Bld) [Mass/Vol] 9.2 g/dL Low 11.4-15.2 [facility] Comment on above: Performed By: #### H H ####[facility] (DEFAULT)[address] [place] [address] IONIZED CALCIUM, SERUMOrdere d By: Jay Roberson on 05-29-2024 Calcium.ionized (Bld) [Moles/Vol] 4.87 mg/dL 4.60 - 5.30 mg/dL [facility] Interpretation and review of laboratory results Normal [facility] IONIZED CALCIUM, SERUMon ICA 4.87 mg/dL Normal 4.60-5.30 [facility] Comment on above: Performed By: #### I CASST ####[facility] (DEFAULT)[address] [place] [address] MAGNESIUMon 05-29-2024 Magnesium [Mass/Vol] 1.6 mg/dL 1.6 - 2 .6 mg/dL [facility] Magnesium [Mass/Vol] 1.6 mg/dL Normal 1.6-2.6 [facility] Comment on above: Performed By: #### C HM7, MGO, IPB ####[facility] (DEFAULT)[address] [place] [address] No Panel Informationon 05-29 Interpretation and review of laboratory results Normal [facility] PHOSPHATE, INORGANICon 05-29 Phosphate [Mass/Vol] 3.1 mg/dL 2.2 - 4 .6 mg/dL [facility] Phosphorous 3.1 mg/dL Normal 2.2-4.6 [facility] Comment on above: Performed By: #### C 7, MGO, IPB ####[facility] (DEFAULT)[address] [place] [address] US.doppler Lower extremity v ein - rightOrdered By: Escobar Bajwa on 05-29-2024 [facility] Work Phone: CBC,PLATELETSon 05-28-2024 Erythrocyte distribution width (RBC) [Ratio] 15.9 % High 10.8 - 14.9 % [facility] Hematocrit (Bld) [Volume fraction] 33.1 % Low 34.9 - 44.3 % [facility] Hemoglobin (Bld) [Mass/Vol] 10.4 g/dL Low 11.4 - 15.2 g/dL [facility] Interpretation and review of laboratory results Abnormal [facility] MCH (RBC) [Entitic mass] 29.2 pg 25.9 - 33.9 pg [facility] MCHC (RBC) [Mass/Vol] 31.4 g/dL 31.4 - 35.9 g/dL [facility] MCV (RBC) [Entitic vol] 93.0 fL 79.6 - 97.7 fL [facility] Platelet mean volume (Bld) [Entitic vol] 8.5 fL 8.5 - 12.2 fL [facility] Platelets (Bld) [#/Vol] 478 10*3/uL High 150 - 393 K/uL [facility] RBC (Bld) [#/Vol] 3.56 10*6/uL Low [facility] WBC (Bld) [#/Vol] 6.98 10*3/uL 3.99 - 11.19 K/uL [facility] Hematocrit (Bld) [Volume fraction] 33.1 % Low 34.9-44.3 [facility] Comment on above: Performed By: #### H [facility] ####[facility] (DEFAULT)[address] [place] [address] Hemoglobin (Bld) [Mass/Vol] 10.4 g/dL Low 11.4-15.2 [facility] Comment on above: Performed By: #### H EMOGC ####[facility] (DEFAULT)[address] [place] [address] MCV (RBC) [Entitic vol] 93.0 fL Normal 79.6-97.7 [facility] Comment on above: Performed By: #### H EMOGC ####[facility] (DEFAULT)[address] [place] [address] Mean Cell Hgb 29.2 pg Normal 25.9-33.9 [facility] Comment on above: Performed By: #### H EMOGC ####[facility] (DEFAULT)[address] [place] [address] Mean Cell Hgb Conc 31.4 g/dL Normal 31.4-35.9 [facility] Comment on above: Performed By: #### H EMOGC ####[facility] (DEFAULT)[address] [place] [address] Platelet mean volume (Bld) [Entitic vol] 8.5 fL Normal 8.5-12.2 [facility] Comment on above: Performed By: #### H EMOGC ####[facility] (DEFAULT)[address] [place] [address] Platelets (Bld) [#/Vol] 478 10*3/uL High 150-393 [facility] Comment on above: Performed By: #### H EMOGC ####[facility] (DEFAULT)[address] [place] [address] RBC (Bld) [#/Vol] 3.56 10*6/uL Low 3.91-5.04 [facility] Comment on above: Performed By: #### H EMOGC ####[facility] (DEFAULT)[address] [place] [address] RBC Distribution 15.9 % High 10.8-14.9 [facility] Comment on above: Performed By: #### H [facility] ####[facility] (DEFAULT)[address] [place] [address] WBC (Bld) [#/Vol] 6.98 10*3/uL Normal 3.99-11.19 [facility] Comment on above: Performed By: #### H [facility] ####[facility] (DEFAULT)[address] [place] [address] CHEM 7 (LYTES,BUN,CREA,GLUC) on 05-28-2024 Anion gap [Moles/Vol] 17 mmol/L 7 - 17 mmol/L [facility] Chloride [Moles/Vol] 96 mmol/L Low 98 - 10 8 mmol/L [facility] CO2 [Moles/Vol] 24 mmol/L 21 - 31 mmol/L [facility] Creatinine [Mass/Vol] 0.35 mg/dL Low 0.50 - 1.20 mg/dL [facility] eGFR, CKD-EPI, Female - PINF [facility] Glucose [Mass/Vol] 83 mg/dL 70 - 99 mg/dL [facility] Osmolality Calc [Osmolality] 278 [facility] Potassium [Moles/Vol] 4.3 mmol/L 3.5 - 5.0 mmol/L [facility] Sodium [Moles/Vol] 133 mmol/L Low 135 - 145 mmol/L [facility] Urea nitrogen [Mass/Vol] 9 mg/dL 7 - 25 mg/dL [facility] Urea nitrogen/Creatinine [Mass ratio] 26 mg/mg [facility] Anion gap [Moles/Vol] 17 mmol/L Normal 7-[address] [facility] Comment on above: Performed By: #### H FP, IPB, MGO, CHM7 ####[facility] (DEFAULT)[address] [place] [address] Chloride [Moles/Vol] 96 mmol/L Low 98-108 [facility] Comment on above: Performed By: #### H MARIA DEL CARMEN COFFEY MGO, CHM7 ####[facility] (DEFAULT)[address] [place] [address] CO2 [Moles/Vol] 24 mmol/L Normal 21-31 [facility] Comment on above: Performed By: #### H ALEXX IPB, MGO, CHM7 ####[facility] (DEFAULT)[address] [place] [address] Creatinine [Mass/Vol] 0.35 mg/dL Low 0.50-1.20 [facility] Comment on above: Performed By: #### H ALEXX IPB, MGO, CHM7 ####[facility] (DEFAULT)[address] [place] [address], [place] [address] eGFR, CKD-EPI, Female > Normal >=60 [facility] Comment on above: Result Comment: Repo rted eGFR is based on the CKD-EPI 2020 equation using creatinine, age, and sex. Performed By: #### H REDD COFFEYB, MGJitendra, CHM7 ####[facility] (DEFAULT)[address] [place] [address] Glucose [Mass/Vol] 83 mg/dL Normal 70-99 [facility] Comment on above: Performed By: #### H ALEXX IPB, MGO, CHM7 ####[facility] (DEFAULT)[address] [place] [address] Osmolality [Osmolality] 278 mosm/kg Normal 278-305 [facility] Comment on above: Performed By: #### H FP, IPB, MGO, CHM7 ####[facility] (DEFAULT)[address] [place] [address] Potassium [Moles/Vol] 4.3 mmol/L Normal 3.5-5.[address] [facility] Comment on above: Performed By: #### H FP, IPB, MGO, CHM7 ####[facility] (DEFAULT)[address] [place] [address] Sodium [Moles/Vol] 133 mmol/L Low 135-145 [facility] Comment on above: Performed By: #### H FP, IPB, MGO, CHM7 ####[facility] (DEFAULT)[address] [place] [address] Urea nitrogen [Mass/Vol] 9 mg/dL Normal 7-25 [facility] Comment on above: Performed By: #### H FP, IPB, MGO, CHM7 ####[facility] (DEFAULT)[address] [place] [address] Urea nitrogen/Creatinine [Mass ratio] 26 mg/mg Normal [facility] Comment on above: Performed By: #### H FP, IPB, MGO, CHM7 ####[facility] (DEFAULT)[address] [place] [address] ECHOCARDIOGRAM LIMITED/FOLLO WUPon 05-28-2024 ECHOCARDIOGRAM LIMITED/FOLLOWUP Normal [facility] HEPATIC FUNCTION PANELon Albumin [Mass/Vol] 3.0 g/dL Low 3.5 - 5.0 g/dL [facility] ALP [Catalytic activity/Vol] 219 U/L High 32 - 126 U/L [facility] ALT [Catalytic activity/Vol] 37 U/L 9 - 48 U/L [facility] AST [Catalytic activity/Vol] 69 U/L High 10 - 39 U/L [facility] Bilirubin [Mass/Vol] 0.4 mg/dL NINF - 1.5 mg/dL [facility] Bilirubin.direct [Mass/Vol] 0.2 mg/dL NINF - 0.3 mg/dL [facility] Protein [Mass/Vol] 5.8 g/dL Low 6.4 - 8.3 g/dL [facility] Albumin [Mass/Vol] 3.0 g/dL Low 3.5-5.0 [facility] Comment on above: Performed By: #### H FP, IPB, MGO, CHM7 ####[facility] (DEFAULT)[address] [place] [address] ALP [Catalytic activity/Vol] 219 U/L High 32-126 [facility] Comment on above: Performed By: #### H FP, IPB, MGO, CHM7 ####[facility] (DEFAULT)[address] [place] [address] ALT [Catalytic activity/Vol] 37 U/L Normal 9-48 [facility] Comment on above: Performed By: #### H FP, IPB, MGO, CHM7 ####[facility] (DEFAULT)[address] [place] [address] AST [Catalytic activity/Vol] 69 U/L High 10-39 [facility] Comment on above: Performed By: #### H FP, IPB, MGO, CHM7 ####[facility] (DEFAULT)[address] [place] [address] Bilirubin [Mass/Vol] 0.4 mg/dL Normal <1.5 [facility] Comment on above: Performed By: #### H FP, IPB, MGO, CHM7 ####[facility] (DEFAULT)[address] [place] [address] Bilirubin.indirect [Mass/Vol] 0.2 mg/dL Normal <0.3 [facility] Comment on above: Performed By: #### H FP, IPB, MGO, CHM7 ####[facility] (DEFAULT)[address] [place] [address] Protein [Mass/Vol] 5.8 g/dL Low 6.4-8.3 [facility] Comment on above: Performed By: #### H FP, IPB, MGO, CHM7 ####[facility] (DEFAULT)[address] [place] [address] IONIZED CALCIUM, SERUMOrdere d By: Yolie Lundy on 05-28-2024 Calcium.ionized (Bld) [Moles/Vol] 4.69 mg/dL 4.60 - 5.30 mg/dL [facility] Interpretation and review of laboratory results Normal [facility] IONIZED CALCIUM, SERUMon ICA 4.69 mg/dL Normal 4.60-5.30 [facility] Comment on above: Performed By: #### I BITA ####[facility] (DEFAULT)[address] [place] [address] MAGNESIUMon 05-28-2024 Magnesium [Mass/Vol] 1.8 mg/dL 1.6 - 2 .6 mg/dL [facility] Magnesium [Mass/Vol] 1.8 mg/dL Normal 1.6-2.6 [facility] Comment on above: Performed By: #### H MARIA DEL CARMEN COFFEY, MGJitendra, CHM7 ####[facility] (DEFAULT)[address] [place] [address] No Panel Informationon 05-28 Interpretation and review of laboratory results Abnormal [facility] Interpretation and review of laboratory results Normal [facility] PHOSPHATE, INORGANICon 05-28 Phosphate [Mass/Vol] 3.1 mg/dL 2.2 - 4 .6 mg/dL [facility] Phosphorous 3.1 mg/dL Normal 2.2-4.6 [facility] Comment on above: Performed By: #### H MARIA DEL CARMEN COFFEY, MGO, CHM7 ####[facility] (DEFAULT)[address] [place] [address] US Heart limitedOrdered By: Shabbir Gaviria on 05-28-2024 Avg e' pk dorothy 0.07 m/s [facility] Work Phone: Avg E/e' ratio 11.43 [facility] Work Phone: [phone] Body surface area Derived from formula 1.56 m2 [facility] Work Phone: [phone] BP EF 65 % [facility] Work Phone: [phone] E wave decelartion time 237.00 msec [facility] Work Phone: [phone] e' lateral pk dorothy 0.0741 [facility]: [phone] e' lateral pk dorothy 0.07 [facility] Work Phone: [phone] e' septal pk dorothy 0.0663 [facility]: [phone] e' septal pk dorothy 0.07 m/s [facility] Work Phone: [phone] E/A ratio 1.16 [facility] Work Phone: [phone] E/e' lateral ratio 10.80 [facility] Work Phone: [phone] E/e' septal ratio 12.07 [facility] Work Phone: [phone] EF SP 2CH 67 [facility] Work Phone: [phone] EF SP 4CH 64 [facility] Work Phone: [phone] EST RAP 3.00 mmHg [facility] Work Phone: [phone] EST RVSP 37 mmHg [facility] Work Phone: [phone] IVC ostium 1.23 cm [facility] Work Phone: [phone] LV EDV BP 46 mL [facility] Work Phone: [phone] LV EDV SP 2CH 48 mL [facility] Work Phone: [phone] LV EDV SP 4CH 42 mL [facility] Work Phone: [phone] LV ESV BP 16 mL [facility] Work Phone: [phone] LV ESV SP 2CH 16 mL [facility] Work Phone: [phone] LV ESV SP 4CH 15 mL [facility] Work Phone: [phone] LV stroke volume BP (ml) 30 mL [facility] Work Phone: [phone] LV stroke volume index BP 19.23 mL/m2 [facility] Work Phone: [phone] MV pk A dorothy 0.69 m/s [facility] Work Phone: [phone] MV pk E dorothy 0.80 m/s [facility] Work Phone: [phone] [facility] ECHO LV BIPLANE SYSTOLIC VOLUME INDEX 10.26 mL/m2 [facility] Work Phone: [phone] [facility] ECHO LV BP DIASTOLIC VOLUME INDEX 29.49 mL/m2 [facility] Work Phone: [phone] TR pk grad 34 mmHg [facility] Work Phone: [phone] TR pk dorothy 2.91 m/s [facility] Work Phone: [phone] [facility] Work Phone: US Heart limitedon [facility] Radiology Study observation (narrative) [facility] US.doppler Lower extremity v ein - righton 05-28-2024 Radiology Study observation (narrative) [facility] CBC,PLATELETSon 05-27-2024 Erythrocyte distribution width (RBC) [Ratio] 15.9 % High 10.8 - 14.9 % [facility] Hematocrit (Bld) [Volume fraction] 31.2 % Low 34.9 - 44.3 % [facility] Hemoglobin (Bld) [Mass/Vol] 10.0 g/dL Low 11.4 - 15.2 g/dL [facility] Interpretation and review of laboratory results Abnormal [facility] MCH (RBC) [Entitic mass] 29.0 pg 25.9 - 33.9 pg [facility] MCHC (RBC) [Mass/Vol] 32.1 g/dL 31.4 - 35.9 g/dL [facility] MCV (RBC) [Entitic vol] 90.4 fL 79.6 - 97.7 fL [facility] Platelet mean volume (Bld) [Entitic vol] 8.4 fL Low 8.5 - 12.2 fL [facility] Platelets (Bld) [#/Vol] 474 10*3/uL High 150 - 393 K/uL [facility] RBC (Bld) [#/Vol] 3.45 10*6/uL Low [facility] WBC (Bld) [#/Vol] 5.11 10*3/uL 3.99 - 11.19 K/uL [facility] Hematocrit (Bld) [Volume fraction] 31.2 % Low 34.9-44.3 [facility] Comment on above: Performed By: #### H [facility] ####[facility] (DEFAULT)[address] [place] [address] Hemoglobin (Bld) [Mass/Vol] 10.0 g/dL Low 11.4-15.2 [facility] Comment on above: Performed By: #### H [facility] ####[facility] (DEFAULT)[address] [place] [address] MCV (RBC) [Entitic vol] 90.4 fL Normal 79.6-97.7 [facility] Comment on above: Performed By: #### H [facility] ####[facility] (DEFAULT)[address] [place] [address] Mean Cell Hgb 29.0 pg Normal 25.9-33.9 [facility] Comment on above: Performed By: #### H [facility] ####[facility] (DEFAULT)[address] [place] [address] Mean Cell Hgb Conc 32.1 g/dL Normal 31.4-35.9 [facility] Comment on above: Performed By: #### H EMOGC ####[facility] (DEFAULT)[address] [place] [address] Platelet mean volume (Bld) [Entitic vol] 8.4 fL Low 8.5-12.2 [facility] Comment on above: Performed By: #### H EMO ####[facility] (DEFAULT)[address] [place] [address], [place] [address] Platelets (Bld) [#/Vol] 474 10*3/uL High 150-393 [facility] Comment on above: Performed By: #### H EMO ####[facility] (DEFAULT)[address] [place] [address] RBC (Bld) [#/Vol] 3.45 10*6/uL Low 3.91-5.04 [facility] Comment on above: Performed By: #### H EMO ####[facility] (DEFAULT)[address] [place] [address], [place] [address] RBC Distribution 15.9 % High 10.8-14.9 [facility] Comment on above: Performed By: #### H EMOGC ####[facility] (DEFAULT)[address] [place] [address], [place] [address] WBC (Bld) [#/Vol] 5.11 10*3/uL Normal 3.99-11.19 [facility] Comment on above: Performed By: #### H EMOGC ####[facility] (DEFAULT)[address] [place] [address] CHEM 7 (LYTES,BUN,CREA,GLUC) on 05-27-2024 Anion gap [Moles/Vol] 9 mmol/L 7 - 17 mmol/L [facility] Chloride [Moles/Vol] 98 mmol/L 98 - 10 8 mmol/L [facility] CO2 [Moles/Vol] 28 mmol/L 21 - 31 mmol/L [facility] Creatinine [Mass/Vol] 0.36 mg/dL Low 0.50 - 1.20 mg/dL [facility] eGFR, CKD-EPI, Female - PINF [facility] Glucose [Mass/Vol] 95 mg/dL 70 - 99 mg/dL [facility] Interpretation and review of laboratory results Abnormal [facility] Osmolality Calc [Osmolality] 273 Low [facility] Potassium [Moles/Vol] 3.9 mmol/L 3.5 - 5.0 mmol/L [facility] Sodium [Moles/Vol] 131 mmol/L Low 135 - 145 mmol/L [facility] Urea nitrogen [Mass/Vol] 6 mg/dL Low 7 - 25 mg/dL [facility] Urea nitrogen/Creatinine [Mass ratio] 17 mg/mg [facility] Anion gap [Moles/Vol] 9 mmol/L Normal 7-17 [facility] Comment on above: Performed By: #### MARIA DEL CARMEN HERRERA CHM7 ####[facility] (DEFAULT)[address] [place] [address] Chloride [Moles/Vol] 98 mmol/L Normal 98-108 [facility] Comment on above: Performed By: #### MARIA DEL CARMEN HERRERA, MONIK7 ####[facility] (DEFAULT)[address] [place] [address] CO2 [Moles/Vol] 28 mmol/L Normal 21-31 [facility] Comment on above: Performed By: #### MARIA DEL CARMEN HERRERA, CHJuancarlos7 ####[facility] (DEFAULT)[address] [place] [address] Creatinine [Mass/Vol] 0.36 mg/dL Low 0.50-1.20 [facility] Comment on above: Performed By: #### M GO, IPB, CHM7 ####[facility] (DEFAULT)[address] [place] [address] eGFR, CKD-EPI, Female > Normal >=60 [facility] Comment on above: Result Comment: Repo rted eGFR is based on the CKD-EPI 2020 equation using creatinine, age, and sex. Performed By: #### MARIA DEL CARMEN HERRERA, CHM7 ####[facility] (DEFAULT)[address] [place] [address] Glucose [Mass/Vol] 95 mg/dL Normal 70-99 [facility] Comment on above: Performed By: #### MARIA DEL CARMEN HERRERA, CHM7 ####[facility] (DEFAULT)[address] [place] [address] Osmolality [Osmolality] 273 mosm/kg Low 278-305 [facility] Comment on above: Performed By: #### MARIA DEL CARMEN HERRERA, CHM7 ####[facility] (DEFAULT)[address] [place] [address] Potassium [Moles/Vol] 3.9 mmol/L Normal 3.5-5.0 [facility] Comment on above: Performed By: #### MARIA DEL CARMEN HERRERA, CHM7 ####[facility] (DEFAULT)[address] [place] [address] Sodium [Moles/Vol] 131 mmol/L Low 135-145 [facility] Comment on above: Performed By: #### MARIA DEL CARMEN HERRERA, CHM7 ####[facility] (DEFAULT)[address] [place] [address] Urea nitrogen [Mass/Vol] 6 mg/dL Low 7-25 [facility] Comment on above: Performed By: #### MARIA DEL CARMEN HERRERA, CHM7 ####[facility] (DEFAULT)[address] [place] [address] Urea nitrogen/Creatinine [Mass ratio] 17 mg/mg Normal [facility] Comment on above: Performed By: #### MARIA DEL CARMEN HERRERA CHM7 ####[facility] (DEFAULT)[address] [place] [address] GENERAL PROCEDUREon 05-27-20 [facility] GENERAL PROCEDUREOrdered By: Patel Jaramillo on 05-27-2024 [facility] Work Phone: Radiology Study observation (narrative) [facility] Work Phone: IONIZED CALCIUM, SERUMon Calcium.ionized (Bld) [Moles/Vol] 4.58 mg/dL Low 4.60 - 5.30 mg/dL [facility] Interpretation and review of laboratory results Abnormal [facility] ICA 4.58 mg/dL Low 4.60-5.30 [facility] Comment on above: Performed By: #### I BITA ####[facility] (DEFAULT)[address] [place] [address] MAGNESIUMon 05-27-2024 Magnesium [Mass/Vol] 2.0 mg/dL 1.6 - 2 .6 mg/dL [facility] Magnesium [Mass/Vol] 2.0 mg/dL Normal 1.6-2.6 [facility] Comment on above: Performed By: #### MARIA DEL CARMEN HERRERA CHM7 ####[facility] (DEFAULT)[address] [place] [address] No Panel Informationon 05-27 Interpretation and review of laboratory results Normal [facility] PHOSPHATE, INORGANICon 05-27 Phosphate [Mass/Vol] 2.7 mg/dL 2.2 - 4 .6 mg/dL [facility] Phosphorous 2.7 mg/dL Normal 2.2-4.6 [facility] Comment on above: Performed By: #### MARIA DEL CARMEN HERRERA CHM7 ####[facility] (DEFAULT)[address] [place] [address] PT,INR,PTTon 05-27-2024 aPTT Coag (PPP) [Time] 29.1 s OS [facility] INR Coag (Bld) [Relative time] 1.0 {INR} 0.9 - 1.1 [facility] Interpretation and review of laboratory results Normal [facility] PT Coag (PPP) [Time] 13.3 s [facility] aPTT Coag (Bld) [Time] 29.1 s Normal 24.0-34.3 [facility] Comment on above: Performed By: #### P TPTT ####[facility] (DEFAULT)[address] [place] [address] INR Coag (PPP) [Relative time] 1.0 {INR} Normal 0.9-1.1 [facility] Comment on above: Performed By: #### P TPTT ####[facility] (DEFAULT)[address] [place] [address] PT Coag (PPP) [Time] 13.3 s Normal 11.9-14.2 [facility] Comment on above: Performed By: #### P TPTT ####[facility] (DEFAULT)[address] [place] [address] SURG PATH REQUESTon 05-27-20 Case Report Normal [facility] Comment on above: Result Comment: Surg ical Pathology Report Case: [id number] Provider: Yo Chaudhari MD Collected: 05/27/2024 03:11 PMOrdering Location: [facility] PERIOP Received: 05/27/2024 03:17 PMPathologist: JOSELYN Chapapecimen: SURG PATH, LIVER LESION Performed By: #### S URGP ####[facility] (DEFAULT)[address] [place] [address] Clinical History Reason For Exam: Rosa er lesion biopsy. Normal [facility] Comment on above: Performed By: #### S URGP ####[facility] (DEFAULT)[address] [place] [address] Gross Description Normal [facility] Comment on above: Result Comment: The specimen is received in one properly labeled container with the patient's name and accession number.A. The specimen is designated liver lesion and consists of seven guillen-red soft tissue cores ranging in length measuring 0.4 cm up to 1.9 cm, with an average diameter of 0.1 cm. TE 2Lab Use Only: JobID [id number] for this case was: oYon Olivas Performed By: #### S URGP ####[facility] (DEFAULT)[address] [place] [address] Microscopic Description Normal [facility] Comment on above: Result Comment: A mi croscopic examination was performed.Estrogen receptor (ER) and progesterone receptor (NY) are evaluated by manual quantitative immunohistochemistry on formalin-fixed (for >6 and <72 hours if possible), paraffin-embedded tissue using clone [id number] (2NDNATURE) for ER, clone [id number] (DAKO) for [place] and Leica/Kaye polymer detection system on a Leica/Kaye or DAKO auto-stainer.For ER, the percentage of positive tumor cell nuclei is scored as <1% negative, 1-10% low positive or >10% positive and the overall staining intensity is categorized as weak, moderate or strong. There are limited data on the overall benefit of endocrine therapy with a low level (1-10%) ER expression, but they currently suggest possible benefit, so patients are considered eligible for endocrine treatment. There are data that suggest invasive cancers with these results are heterogeneous in both behavior and biology and often have gene expression profiles more similar to ER-negative cancers.For NY, the percentage of positive tumor cell nuclei is scored as <1% negative or >/=1% positive and the overall staining intensity is categorized as weak, moderate or strong.HER2 protein expression is evaluated by manual quantitative immunohistochemistry on formalin-fixed (for >6 and <72 hours if possible), paraffin-embedded tissue using FDA approved clone [id number] (rabbit monoclonal, Callahan) on a 6Waves auto-stainer, and scored according to ASCO/CAP criteria. Membrane staining of tumor cells is scored as readily appreciated using a low power objective as 0 (negative) no staining or membrane staining that is incomplete and faint/barely perceptible in 10% of invasive tumor cells; 2+ (equivocal) weak to moderate complete membrane staining observed in >10% of tumor cells; 3+ (positive) circumferential, complete, intense membrane staining observed in a homogeneous contiguous population within >10% of invasive tumor cells. Breast cancers with HER2 IHC score 3+ are usually eligible for HER2-targeted therapy. Breast cancers with HER2 IHC score 1+ or score 2+ and a negative ANNE result are considered HER2 low and may be eligible for HER2-targeted therapy. Breast cancers that are HER2 ultralow may be eligible for HER2-targeted therapy.If the specimen has been decalcified, exceeds cold-ischemic time or is outside the recommended range for formalin fixation time, the results should be interpreted with caution. This assay has not been validated for decalcified specimens, cytology specimens and specimens in which the cold ischemic/fixation time is unknown.All controls show appropriate reactivity. All immunohistochemistry (IHC), in situ hybridization (ANNE), and histochemical tests were developed by and are performed at the [facility], Histology and IHC Lab, [address] [place] [address]. All Immunofluorescent (IF) tests were developed by and are performed at the [facility], Renal Division, [address] [place] [address]. All tests reported here, except for PD-L1, have not been cleared by or approved by the [place] Food and Drug Administration (FDA). The laboratory is regulated under CLIA as qualified to perform high-complexity testing. The tests are used for clinical purposes. They should not be regarded as investigational or for research.References: J Clin Oncol. 2019 13:[id number], Arch Pathol Lab Med. 2018 Apr;142(11):3116-7657 Performed By: #### S URGP ####[facility] (DEFAULT)[address] [place] [address] Pathologic Diagnosis Normal [facility] Comment on above: Result Comment: Michi kohler, lesion, biopsy:Metastatic carcinoma of breast originManual immunohistochemical quantification using stains performed at [facility] (block A1):Estrogen Receptor: Low positive (5%, weak intensity)Progesterone Receptor: Negative (0%)HER2: Negative (Score 1+)Comment: Immunohistochemical stains for CK7 and GATA3 are positive, supporting breast primary. Performed By: #### S URGP ####[facility] (DEFAULT)[address] [place] [address] Professional Interpretation Performed at: Normal [facility] Comment on above: Result Comment: [facility] CLINICAL LABORATORYFor Immediate Release to Patient's MyChart? [address] [place], [place] [id number] Performed By: #### S URGP ####[facility] (DEFAULT)[address] [place] [address] URINE CULTUREOrdered By: Saleem Brock on 05-27-2024 Bacteria identified Cx Nom (Unsp spec) No significant growth. Routine cultures are evaluated for significant uro-pathogens >=10,000 CFU/mL [facility] US Guidance for biopsy of Li ana maria 05-27-2024 RADIOLOGY RADIOLOGY [facility] Radiology Study observation (narrative) [facility] US PERCUTANEOUS LIVER BIOPSY on 05-27-2024 US PERCUTANEOUS LIVER BIOPSY Normal [facility] CBC,PLATELETSon 05-26-2024 Erythrocyte distribution width (RBC) [Ratio] 16.3 % High 10.8 - 14.9 % [facility] Hematocrit (Bld) [Volume fraction] 31.8 % Low 34.9 - 44.3 % [facility] Hemoglobin (Bld) [Mass/Vol] 10.4 g/dL Low 11.4 - 15.2 g/dL [facility] Interpretation and review of laboratory results Abnormal [facility] MCH (RBC) [Entitic mass] 29.7 pg 25.9 - 33.9 pg [facility] MCHC (RBC) [Mass/Vol] 32.7 g/dL 31.4 - 35.9 g/dL [facility] MCV (RBC) [Entitic vol] 90.9 fL 79.6 - 97.7 fL [facility] Platelet mean volume (Bld) [Entitic vol] 8.6 fL 8.5 - 12.2 fL [facility] Platelets (Bld) [#/Vol] 447 10*3/uL High 150 - 393 K/uL [facility] RBC (Bld) [#/Vol] 3.50 10*6/uL Low [facility] WBC (Bld) [#/Vol] 5.17 10*3/uL 3.99 - 11.19 K/uL [facility] Hematocrit (Bld) [Volume fraction] 31.8 % Low 34.9-44.3 [facility] Comment on above: Performed By: #### H [facility] ####[facility] (DEFAULT)[address] [place] [address] Hemoglobin (Bld) [Mass/Vol] 10.4 g/dL Low 11.4-15.2 [facility] Comment on above: Performed By: #### H EMO ####[facility] (DEFAULT)[address] [place] [address] MCV (RBC) [Entitic vol] 90.9 fL Normal 79.6-97.7 [facility] Comment on above: Performed By: #### H EMO ####[facility] (DEFAULT)[address] [place] [address] Mean Cell Hgb 29.7 pg Normal 25.9-33.9 [facility] Comment on above: Performed By: #### H EMO ####[facility] (DEFAULT)[address] [place] [address]54 Mean Cell Hgb Conc 32.7 g/dL Normal 31.4-35.9 [facility] Comment on above: Performed By: #### H EMOGC ####[facility] (DEFAULT)[address] [place] [address] Platelet mean volume (Bld) [Entitic vol] 8.6 fL Normal 8.5-12.2 [facility] Comment on above: Performed By: #### H EMO ####[facility] (DEFAULT)[address] [place] [address] Platelets (Bld) [#/Vol] 447 10*3/uL High 150-393 [facility] Comment on above: Performed By: #### H EMO ####[facility] (DEFAULT)[address] [place] [address] RBC (Bld) [#/Vol] 3.50 10*6/uL Low 3.91-5.04 [facility] Comment on above: Performed By: #### H EMO ####[facility] (DEFAULT)[address] [place] [address] RBC Distribution 16.3 % High 10.8-14.9 [facility] Comment on above: Performed By: #### H EMO ####[facility] (DEFAULT)[address] [place] [address] WBC (Bld) [#/Vol] 5.17 10*3/uL Normal 3.99-11.19 [facility] Comment on above: Performed By: #### H EMO ####[facility] (DEFAULT)[address] [place] [address] CHEM 7 (LYTES,BUN,CREA,GLUC) on 05-26-2024 Anion gap [Moles/Vol] 13 mmol/L 7 - 17 mmol/L [facility] Chloride [Moles/Vol] 98 mmol/L 98 - 10 8 mmol/L [facility] CO2 [Moles/Vol] 28 mmol/L 21 - 31 mmol/L [facility] Creatinine [Mass/Vol] 0.40 mg/dL Low 0.50 - 1.20 mg/dL [facility] eGFR, CKD-EPI, Female - PINF [facility] Glucose [Mass/Vol] 83 mg/dL 70 - 99 mg/dL [facility] Osmolality Calc [Osmolality] 281 [facility] Potassium [Moles/Vol] 3.8 mmol/L 3.5 - 5.0 mmol/L [facility] Sodium [Moles/Vol] 135 mmol/L 135 - 145 mmol/L [facility] Urea nitrogen [Mass/Vol] 9 mg/dL 7 - 25 mg/dL [facility] Urea nitrogen/Creatinine [Mass ratio] 23 mg/mg [facility] Anion gap [Moles/Vol] 13 mmol/L Normal 7-17 [facility] Comment on above: Performed By: #### M GO, CHM7, IPB, HFP ####[facility] (DEFAULT)[address] [place] [address] Chloride [Moles/Vol] 98 mmol/L Normal 98-108 [facility] Comment on above: Performed By: #### Juancarlos GO, CHM7, IPB, HFP ####[facility] (DEFAULT)[address] [place] [address] CO2 [Moles/Vol] 28 mmol/L Normal 21-31 [facility] Comment on above: Performed By: #### Juancarlos GO, CHM7, IPB, HFP ####[facility] (DEFAULT)[address] [place] [address] Creatinine [Mass/Vol] 0.40 mg/dL Low 0.50-1.20 [facility] Comment on above: Performed By: #### M GO, CHM7, IPB, HFP ####[facility] (DEFAULT)[address] [place] [address] eGFR, CKD-EPI, Female > Normal >=60 [facility] Comment on above: Result Comment: Repo rted eGFR is based on the CKD-EPI 2020 equation using creatinine, age, and sex. Performed By: #### M GO, CHM7, IPB, HFP ####[facility] (DEFAULT)[address] [place] [address] Glucose [Mass/Vol] 83 mg/dL Normal 70-99 [facility] Comment on above: Performed By: #### M GO, CHM7, IPB, HFP ####[facility] (DEFAULT)[address] [place] [address] Osmolality [Osmolality] 281 mosm/kg Normal 278-305 [facility] Comment on above: Performed By: #### M GO, CHM7, IPB, HFP ####[facility] (DEFAULT)[address] [place] [address] Potassium [Moles/Vol] 3.8 mmol/L Normal 3.5-5.0 [facility] Comment on above: Performed By: #### M GO, CHM7, IPB, HFP ####[facility] (DEFAULT)[address] [place] [address] Sodium [Moles/Vol] 135 mmol/L Normal 135-145 [facility] Comment on above: Performed By: #### M GO, CHM7, IPB, HFP ####[facility] (DEFAULT)[address] [place] [address] Urea nitrogen [Mass/Vol] 9 mg/dL Normal 7-25 [facility] Comment on above: Performed By: #### M GO, CHM7, IPB, HFP ####[facility] (DEFAULT)[address] [place] [address] Urea nitrogen/Creatinine [Mass ratio] 23 mg/mg Normal [facility] Comment on above: Performed By: #### M GO, CHM7, IPB, HFP ####[facility] (DEFAULT)[address] [place] [address] HEPATIC FUNCTION PANELon Albumin [Mass/Vol] 3.0 g/dL Low 3.5 - 5.0 g/dL [facility] ALP [Catalytic activity/Vol] 146 U/L High 32 - 126 U/L [facility] ALT [Catalytic activity/Vol] 20 U/L 9 - 48 U/L [facility] AST [Catalytic activity/Vol] 44 U/L High 10 - 39 U/L [facility] Bilirubin [Mass/Vol] 0.3 mg/dL NINF - 1.5 mg/dL [facility] Bilirubin.direct [Mass/Vol] mg/dL NINF - 0.3 mg/dL [facility] Protein [Mass/Vol] 5.8 g/dL Low 6.4 - 8.3 g/dL [facility] Albumin [Mass/Vol] 3.0 g/dL Low 3.5-5.0 [facility] Comment on above: Performed By: #### Juancarlos MARTINEZ CHM7, IPB, HFP ####[facility] (DEFAULT)[address] [place] [address] ALP [Catalytic activity/Vol] 146 U/L High 32-126 [facility] Comment on above: Performed By: #### M MICHELLE, CHM7, IPB, HFP ####[facility] (DEFAULT)[address] [place] [address] ALT [Catalytic activity/Vol] 20 U/L Normal 9-48 [facility] Comment on above: Performed By: #### Juancarlos MARTINEZ CHM7, IPB, HFP ####[facility] (DEFAULT)[address] [place] [address] AST [Catalytic activity/Vol] 44 U/L High 10-39 [facility] Comment on above: Performed By: #### Juancarlos MARTINEZ, CHM7, IPB, HFP ####[facility] (DEFAULT)[address] [place] [address] Bilirubin [Mass/Vol] 0.3 mg/dL Normal <1.5 [facility] Comment on above: Performed By: #### M BLAKE MARTINEZ, IPB, HFP ####[facility] (DEFAULT)[address] [place] [address] Bilirubin Direct < Normal <0.3 [facility] Comment on above: Performed By: #### M BLAKE MARTINEZ, IPB, HFP ####[facility] (DEFAULT)[address] [place] [address] Protein [Mass/Vol] 5.8 g/dL Low 6.4-8.3 [facility] Comment on above: Performed By: #### BLAKE HERRERA, IPB, HFP ####[facility] (DEFAULT)[address] [place] [address] IONIZED CALCIUM, SERUMon Calcium.ionized (Bld) [Moles/Vol] 4.40 mg/dL Low 4.60 - 5.30 mg/dL [facility] Interpretation and review of laboratory results Abnormal [facility] ICA 4.40 mg/dL Low 4.60-5.30 [facility] Comment on above: Performed By: #### I CASST ####[facility] (DEFAULT)[address] [place] [address] MAGNESIUMon 05-26-2024 Magnesium [Mass/Vol] 1.5 mg/dL Low 1.6 - 2 .6 mg/dL [facility] Magnesium [Mass/Vol] 1.5 mg/dL Low 1.6-2.6 [facility] Comment on above: Performed By: #### M BLAKE MARTINEZ, IPB, HFP ####[facility] (DEFAULT)[address] [place] [address] No Panel Informationon 05-26 Interpretation and review of laboratory results Abnormal [facility] PHOSPHATE, INORGANICon 05-26 Interpretation and review of laboratory results Normal [facility] Phosphate [Mass/Vol] 2.2 mg/dL 2.2 - 4 .6 mg/dL [facility] Phosphorous 2.2 mg/dL Normal 2.2-4.6 [facility] Comment on above: Performed By: #### M GO, CHM7, IPB, HFP ####[facility] (DEFAULT)[address] [place] [address] Portable XR Chest Viewson RADIOLOGY RADIOLOGY U [facility] Radiology Study observation (narrative) [facility] URINE CULTUREon 05-26-2024 Bacteria identified Cx Nom (U) No significant growth. Routine cultures are evaluated for significant uro-pathogens >=10,000 CFU/mL [facility] Comment on above: Order Comment: For i ndwelling catheters, specimen collection is acceptable on catheter day 1 and 2 only. [place]aver top vacutainer. Urine must be to the fill line to process (4mls). If minimum volume, send urine in a yellow top vacutainer tube. Performed By: #### U R ####[facility] (DEFAULT)[address] [place] [address] XR CHEST 1 VIEW PORTABLEon 1 07-27-2023 XR CHEST 1 VIEW PORTABLE Normal [facility] CBC,PLATELETSon 05-25-2024 Erythrocyte distribution width (RBC) [Ratio] 16.3 % High 10.8 - 14.9 % [facility] Hematocrit (Bld) [Volume fraction] 31.8 % Low 34.9 - 44.3 % [facility] Hemoglobin (Bld) [Mass/Vol] 10.0 g/dL Low 11.4 - 15.2 g/dL [facility] Interpretation and review of laboratory results Abnormal [facility] MCH (RBC) [Entitic mass] 29.2 pg 25.9 - 33.9 pg [facility] MCHC (RBC) [Mass/Vol] 31.4 g/dL 31.4 - 35.9 g/dL [facility] MCV (RBC) [Entitic vol] 92.7 fL 79.6 - 97.7 fL [facility] Platelet mean volume (Bld) [Entitic vol] 8.7 fL 8.5 - 12.2 fL [facility] Platelets (Bld) [#/Vol] 485 10*3/uL High 150 - 393 K/uL [facility] RBC (Bld) [#/Vol] 3.43 10*6/uL Low [facility] WBC (Bld) [#/Vol] 3.85 10*3/uL Low 3.99 - 11.19 K/uL [facility] Hematocrit (Bld) [Volume fraction] 31.8 % Low 34.9-44.3 [facility] Comment on above: Performed By: #### H EMO ####[facility] (DEFAULT)[address] [place] [address] Hemoglobin (Bld) [Mass/Vol] 10.0 g/dL Low 11.4-15.2 [facility] Comment on above: Performed By: #### H EMO ####[facility] (DEFAULT)[address] [place] [address] MCV (RBC) [Entitic vol] 92.7 fL Normal 79.6-97.7 [facility] Comment on above: Performed By: #### H EMOGC ####[facility] (DEFAULT)[address] [place] [address] Mean Cell Hgb 29.2 pg Normal 25.9-33.9 [facility] Comment on above: Performed By: #### H EMOGC ####[facility] (DEFAULT)[address] [place] [address] Mean Cell Hgb Conc 31.4 g/dL Normal 31.4-35.9 [facility] Comment on above: Performed By: #### H EMOGC ####[facility] (DEFAULT)[address] [place] [address] Platelet mean volume (Bld) [Entitic vol] 8.7 fL Normal 8.5-12.2 [facility] Comment on above: Performed By: #### H [facility] ####[facility] (DEFAULT)[address] [place] [address] Platelets (Bld) [#/Vol] 485 10*3/uL High 150-393 [facility] Comment on above: Performed By: #### H EMO ####[facility] (DEFAULT)[address] [place] [address] RBC (Bld) [#/Vol] 3.43 10*6/uL Low 3.91-5.04 [facility] Comment on above: Performed By: #### H [facility] ####[facility] (DEFAULT)[address] [place] [address] RBC Distribution 16.3 % High 10.8-14.9 [facility] Comment on above: Performed By: #### H EMO ####[facility] (DEFAULT)[address] [place] [address] WBC (Bld) [#/Vol] 3.85 10*3/uL Low 3.99-11.19 [facility] Comment on above: Performed By: #### H [facility] ####[facility] (DEFAULT)[address] [place] [address] CHEM 7 (LYTES,BUN,CREA,GLUC) on 05-25-2024 Anion gap [Moles/Vol] 15 mmol/L 7 - 17 mmol/L [facility] Chloride [Moles/Vol] 100 mmol/L 98 - 10 8 mmol/L [facility] CO2 [Moles/Vol] 27 mmol/L 21 - 31 mmol/L [facility] Creatinine [Mass/Vol] 0.36 mg/dL Low 0.50 - 1.20 mg/dL [facility] eGFR, CKD-EPI, Female - PINF [facility] Glucose [Mass/Vol] 79 mg/dL 70 - 99 mg/dL [facility] Osmolality Calc [Osmolality] 287 [facility] Potassium [Moles/Vol] 3.7 mmol/L 3.5 - 5.0 mmol/L [facility] Sodium [Moles/Vol] 138 mmol/L 135 - 145 mmol/L [facility] Urea nitrogen [Mass/Vol] 11 mg/dL 7 - 25 mg/dL [facility] Urea nitrogen/Creatinine [Mass ratio] 31 mg/mg [facility] Anion gap [Moles/Vol] 15 mmol/L Normal 7-17 [facility] Comment on above: Performed By: #### BLAKE HERRERA, IPB ####[facility] (DEFAULT)[address] [place] [address] Chloride [Moles/Vol] 100 mmol/L Normal 98-108 [facility] Comment on above: Performed By: #### BLAKE HERRERA, IPB ####[facility] (DEFAULT)[address] [place] [address] CO2 [Moles/Vol] 27 mmol/L Normal 21-31 [facility] Comment on above: Performed By: #### BLAKE HERRERA, IPB ####[facility] (DEFAULT)[address] [place] [address] Creatinine [Mass/Vol] 0.36 mg/dL Low 0.50-1.20 [facility] Comment on above: Performed By: #### BLAKE HERRERA, IPB ####[facility] (DEFAULT)[address] [place] [address] eGFR, CKD-EPI, Female > Normal >=60 [facility] Comment on above: Result Comment: Repo rted eGFR is based on the CKD-EPI 2020 equation using creatinine, age, and sex. Performed By: #### BLAKE HERRERA, IPB ####[facility] (DEFAULT)[address] [place] [address] Glucose [Mass/Vol] 79 mg/dL Normal 70-99 [facility] Comment on above: Performed By: #### BLAKE HERRERA, IPB ####[facility] (DEFAULT)[address] [place] [address] Osmolality [Osmolality] 287 mosm/kg Normal 278-305 [facility] Comment on above: Performed By: #### BLAKE HERRERA, IPB ####[facility] (DEFAULT)[address] [place] [address] Potassium [Moles/Vol] 3.7 mmol/L Normal 3.5-5.0 [facility] Comment on above: Performed By: #### BLAKE HERRERA, IPB ####[facility] (DEFAULT)[address] [place] [address] Sodium [Moles/Vol] 138 mmol/L Normal 135-145 [facility] Comment on above: Performed By: #### BLAKE HERRERA, IPB ####[facility] (DEFAULT)[address] [place] [address] Urea nitrogen [Mass/Vol] 11 mg/dL Normal 7-25 [facility] Comment on above: Performed By: #### BLAKE HERRERA, IPB ####[facility] (DEFAULT)[address] [place] [address] Urea nitrogen/Creatinine [Mass ratio] 31 mg/mg Normal [facility] Comment on above: Performed By: #### Juancarlos MARTINEZ CHMEwa, IPB ####[facility] (DEFAULT)[address] [place] [address] IONIZED CALCIUM, SERUMOrdere d By: Angelina Ross on 05-25-2024 Calcium.ionized (Bld) [Moles/Vol] 4.40 mg/dL Low 4.60 - 5.30 mg/dL [facility] Interpretation and review of laboratory results Abnormal [facility] IONIZED CALCIUM, SERUMon ICA 4.40 mg/dL Low 4.60-5.30 [facility] Comment on above: Performed By: #### I CASST ####[facility] (DEFAULT)[address] [place] [address] MAGNESIUMon 05-25-2024 Interpretation and review of laboratory results Normal [facility] Magnesium [Mass/Vol] 1.7 mg/dL 1.6 - 2 .6 mg/dL [facility] Magnesium [Mass/Vol] 1.7 mg/dL Normal 1.6-2.6 [facility] Comment on above: Performed By: #### BLAKE HERRERA, IPB ####[facility] (DEFAULT)[address] [place] [id number] No Panel Informationon 05-25 Interpretation and review of laboratory results Abnormal [facility] PHOSPHATE, INORGANICon 05-25 Phosphate [Mass/Vol] 1.9 mg/dL Low 2.2 - 4 .6 mg/dL [facility] Phosphorous 1.9 mg/dL Low 2.2-4.6 [facility] Comment on above: Performed By: #### BLAKE HERRERA, IPB ####[facility] (DEFAULT)[address] [place] [address] CBC,PLATELETSon 05-24-2024 Erythrocyte distribution width (RBC) [Ratio] 16.2 % High 10.8 - 14.9 % [facility] Hematocrit (Bld) [Volume fraction] 28.7 % Low 34.9 - 44.3 % [facility] Hemoglobin (Bld) [Mass/Vol] 9.3 g/dL Low 11.4 - 15.2 g/dL [facility] Interpretation and review of laboratory results Abnormal [facility] MCH (RBC) [Entitic mass] 29.8 pg 25.9 - 33.9 pg [facility] MCHC (RBC) [Mass/Vol] 32.4 g/dL 31.4 - 35.9 g/dL [facility] MCV (RBC) [Entitic vol] 92.0 fL 79.6 - 97.7 fL [facility] Platelet mean volume (Bld) [Entitic vol] 8.7 fL 8.5 - 12.2 fL [facility] Platelets (Bld) [#/Vol] 418 10*3/uL High 150 - 393 K/uL [facility] RBC (Bld) [#/Vol] 3.12 10*6/uL Low [facility] WBC (Bld) [#/Vol] 4.11 10*3/uL 3.99 - 11.19 K/uL [facility] Hematocrit (Bld) [Volume fraction] 28.7 % Low 34.9-44.3 [facility] Comment on above: Performed By: #### H [facility] ####[facility] (DEFAULT)[address] [place] [address] Hemoglobin (Bld) [Mass/Vol] 9.3 g/dL Low 11.4-15.2 [facility] Comment on above: Performed By: #### H EMO ####[facility] (DEFAULT)[address] [place] [address] MCV (RBC) [Entitic vol] 92.0 fL Normal 79.6-97.7 [facility] Comment on above: Performed By: #### H EMO ####[facility] (DEFAULT)[address] [place] [address] Mean Cell Hgb 29.8 pg Normal 25.9-33.9 [facility] Comment on above: Performed By: #### H EMO ####[facility] (DEFAULT)[address] [place] [address] Mean Cell Hgb Conc 32.4 g/dL Normal 31.4-35.9 [facility] Comment on above: Performed By: #### H EMO ####[facility] (DEFAULT)[address] [place] [address] Platelet mean volume (Bld) [Entitic vol] 8.7 fL Normal 8.5-12.2 [facility] Comment on above: Performed By: #### H EMO ####[facility] (DEFAULT)[address] [place] [address], [place] [address] Platelets (Bld) [#/Vol] 418 10*3/uL High 150-393 [facility] Comment on above: Performed By: #### H EMO ####[facility] (DEFAULT)[address] [place] [address], [place] [address] RBC (Bld) [#/Vol] 3.12 10*6/uL Low 3.91-5.04 [facility] Comment on above: Performed By: #### H EMO ####[facility] (DEFAULT)[address] [place] [address], [place] [address] RBC Distribution 16.2 % High 10.8-14.9 [facility] Comment on above: Performed By: #### H EMO ####[facility] (DEFAULT)[address] [place] [address] WBC (Bld) [#/Vol] 4.11 10*3/uL Normal 3.99-11.19 [facility] Comment on above: Performed By: #### H EMO ####[facility] (DEFAULT)[address] [place] [address], [place] [address] CHEM 7 (LYTES,BUN,CREA,GLUC) on 05-24-2024 Anion gap [Moles/Vol] 10 mmol/L 7 - 17 mmol/L [facility] Chloride [Moles/Vol] 102 mmol/L 98 - 10 8 mmol/L [facility] CO2 [Moles/Vol] 27 mmol/L 21 - 31 mmol/L [facility] Creatinine [Mass/Vol] 0.37 mg/dL Low 0.50 - 1.20 mg/dL [facility] eGFR, CKD-EPI, Female - PINF [facility] Glucose [Mass/Vol] 71 mg/dL 70 - 99 mg/dL [facility] Osmolality Calc [Osmolality] 280 [facility] Potassium [Moles/Vol] 3.7 mmol/L 3.5 - 5.0 mmol/L [facility] Sodium [Moles/Vol] 135 mmol/L 135 - 145 mmol/L [facility] Urea nitrogen [Mass/Vol] 9 mg/dL 7 - 25 mg/dL [facility] Urea nitrogen/Creatinine [Mass ratio] 24 mg/mg [facility] Anion gap [Moles/Vol] 10 mmol/L Normal 7-17 [facility] Comment on above: Performed By: #### M MICHELLE CHM7, HFP, IPB ####[facility] (DEFAULT)[address] [place] [address] Chloride [Moles/Vol] 102 mmol/L Normal 98-108 [facility] Comment on above: Performed By: #### M MICHELLE CHM7, HFP, IPB ####[facility] (DEFAULT)[address] [place] [address] CO2 [Moles/Vol] 27 mmol/L Normal 21-31 [facility] Comment on above: Performed By: #### M MICHELLE, CHM7, HFP, IPB ####[facility] (DEFAULT)[address] [place] [address] Creatinine [Mass/Vol] 0.37 mg/dL Low 0.50-1.20 [facility] Comment on above: Performed By: #### M MICHELLE, CHM7, HFP, IPB ####[facility] (DEFAULT)[address] [place] [address] eGFR, CKD-EPI, Female > Normal >=60 [facility] Comment on above: Result Comment: Repo rted eGFR is based on the CKD-EPI 2020 equation using creatinine, age, and sex. Performed By: #### M GO, CHM7, HFP, IPB ####[facility] (DEFAULT)[address] [place] [address] Glucose [Mass/Vol] 71 mg/dL Normal 70-99 [facility] Comment on above: Performed By: #### M GO, CHM7, HFP, IPB ####[facility] (DEFAULT)[address] [place] [address] Osmolality [Osmolality] 280 mosm/kg Normal 278-305 [facility] Comment on above: Performed By: #### M GO, CHM7, HFP, IPB ####[facility] (DEFAULT)[address] [place] [address] Potassium [Moles/Vol] 3.7 mmol/L Normal 3.5-5.0 [facility] Comment on above: Performed By: #### M GO, CHM7, HFP, IPB ####[facility] (DEFAULT)[address] [place] [address] Sodium [Moles/Vol] 135 mmol/L Normal 135-145 [facility] Comment on above: Performed By: #### M GO, CHM7, HFP, IPB ####[facility] (DEFAULT)[address] [place] [address] Urea nitrogen [Mass/Vol] 9 mg/dL Normal 7-25 [facility] Comment on above: Performed By: #### M GO, CHM7, HFP, IPB ####[facility] (DEFAULT)[address] [place] [address] Urea nitrogen/Creatinine [Mass ratio] 24 mg/mg Normal [facility] Comment on above: Performed By: #### M GO, CHM7, HFP, IPB ####[facility] (DEFAULT)[address] [place] [address] GLUCOSE POCon 05-24-2024 Glucose [Mass/Vol] 80 mg/dL 70 - 99 mg/dL [facility] POC Sample Type CAPBL [facility] HEPATIC FUNCTION PANELon Albumin [Mass/Vol] 2.9 g/dL Low 3.5 - 5.0 g/dL [facility] ALP [Catalytic activity/Vol] 125 U/L 32 - 126 U/L [facility] ALT [Catalytic activity/Vol] 16 U/L 9 - 48 U/L [facility] AST [Catalytic activity/Vol] 39 U/L 10 - 39 U/L [facility] Bilirubin [Mass/Vol] 0.2 mg/dL NINF - 1.5 mg/dL [facility] Bilirubin.direct [Mass/Vol] 0.1 mg/dL NINF - 0.3 mg/dL [facility] Protein [Mass/Vol] 5.3 g/dL Low 6.4 - 8.3 g/dL [facility] Albumin [Mass/Vol] 2.9 g/dL Low 3.5-5.0 [facility] Comment on above: Performed By: #### M MICHELLE CHM7, HFP, IPB ####[facility] (DEFAULT)[address] [place] [address] ALP [Catalytic activity/Vol] 125 U/L Normal 32-126 [facility] Comment on above: Performed By: #### M MICHELLE CHM7, HFP, IPB ####[facility] (DEFAULT)[address] [place] [address] ALT [Catalytic activity/Vol] 16 U/L Normal 9-48 [facility] Comment on above: Performed By: #### M MICHELLE CHM7, HFP, IPB ####[facility] (DEFAULT)[address] [place] [address] AST [Catalytic activity/Vol] 39 U/L Normal 10-39 [facility] Comment on above: Performed By: #### M GO, CHM7, HFP, IPB ####[facility] (DEFAULT)[address] [place] [address] Bilirubin [Mass/Vol] 0.2 mg/dL Normal <1.5 [facility] Comment on above: Performed By: #### M GO, CHM7, HFP, IPB ####[facility] (DEFAULT)[address] [place] [address] Bilirubin.indirect [Mass/Vol] 0.1 mg/dL Normal <0.3 [facility] Comment on above: Performed By: #### M GO, CHM7, HFP, IPB ####[facility] (DEFAULT)[address] [place] [address] Protein [Mass/Vol] 5.3 g/dL Low 6.4-8.3 [facility] Comment on above: Performed By: #### M GO, CHM7, HFP, IPB ####[facility] (DEFAULT)[address] [place] [address] IONIZED CALCIUM, SERUMOrdere d By: Porsche Heck on 05-24-2024 Calcium.ionized (Bld) [Moles/Vol] 4.58 mg/dL Low 4.60 - 5.30 mg/dL [facility] Interpretation and review of laboratory results Abnormal [facility] IONIZED CALCIUM, SERUMon ICA 4.58 mg/dL Low 4.60-5.30 [facility] Comment on above: Performed By: #### I CASST ####[facility] (DEFAULT)[address] [place] [address] MAGNESIUMon 05-24-2024 Interpretation and review of laboratory results Normal [facility] Magnesium [Mass/Vol] 1.9 mg/dL 1.6 - 2 .6 mg/dL [facility] Magnesium [Mass/Vol] 1.9 mg/dL Normal 1.6-2.6 [facility] Comment on above: Performed By: #### M BLAKE MARTINEZ, REZA, IPB ####[facility] (DEFAULT)[address] [place] [id number] No Panel Informationon 05-24 Interpretation and review of laboratory results Abnormal [facility] PHOSPHATE, INORGANICon 05-24 Phosphate [Mass/Vol] 1.8 mg/dL Low 2.2 - 4 .6 mg/dL [facility] Phosphorous 1.8 mg/dL Low 2.2-4.6 [facility] Comment on above: Performed By: #### M BLAKE MARTINEZ, REZA, IPB ####[facility] (DEFAULT)[address] [place] [address] PT,INR,PTTon 05-24-2024 aPTT Coag (PPP) [Time] 26.9 s [facility] INR Coag (Bld) [Relative time] 1.0 {INR} 0.9 - 1.1 [facility] Interpretation and review of laboratory results Normal [facility] PT Coag (PPP) [Time] 13.5 s [facility] aPTT Coag (Bld) [Time] 26.9 s Normal 24.0-34.3 [facility] Comment on above: Performed By: #### P TPTT ####[facility] (DEFAULT)[address] [place] [address] INR Coag (PPP) [Relative time] 1.0 {INR} Normal 0.9-1.1 [facility] Comment on above: Performed By: #### P TPTT ####[facility] (DEFAULT)[address] [place] [address] PT Coag (PPP) [Time] 13.5 s Normal 11.9-14.2 [facility] Comment on above: Performed By: #### P TPTT ####[facility] (DEFAULT)[address] [place] [address] PTH RELATED PROTEINon 2023 Parathyrin related protein [Moles/Vol] TNP [facility] CBC,PLATELETSon 05-23-2024 Erythrocyte distribution width (RBC) [Ratio] 15.9 % High 10.8 - 14.9 % [facility] Hematocrit (Bld) [Volume fraction] 31.3 % Low 34.9 - 44.3 % [facility] Hemoglobin (Bld) [Mass/Vol] 10.1 g/dL Low 11.4 - 15.2 g/dL [facility] Interpretation and review of laboratory results Abnormal [facility] MCH (RBC) [Entitic mass] 29.6 pg 25.9 - 33.9 pg [facility] MCHC (RBC) [Mass/Vol] 32.3 g/dL 31.4 - 35.9 g/dL [facility] MCV (RBC) [Entitic vol] 91.8 fL 79.6 - 97.7 fL [facility] Platelet mean volume (Bld) [Entitic vol] 9.1 fL 8.5 - 12.2 fL [facility] Platelets (Bld) [#/Vol] 491 10*3/uL High 150 - 393 K/uL [facility] RBC (Bld) [#/Vol] 3.41 10*6/uL Low [facility] WBC (Bld) [#/Vol] 4.97 10*3/uL 3.99 - 11.19 K/uL [facility] Hematocrit (Bld) [Volume fraction] 31.3 % Low 34.9-44.3 [facility] Comment on above: Performed By: #### H EMO ####[facility] (DEFAULT)[address] [place] [address] Hemoglobin (Bld) [Mass/Vol] 10.1 g/dL Low 11.4-15.2 [facility] Comment on above: Performed By: #### H EMOGC ####[facility] (DEFAULT)[address] [place] [address] MCV (RBC) [Entitic vol] 91.8 fL Normal 79.6-97.7 [facility] Comment on above: Performed By: #### H EMOGC ####[facility] (DEFAULT)[address] [place] [address] Mean Cell Hgb 29.6 pg Normal 25.9-33.9 [facility] Comment on above: Performed By: #### H EMOGC ####[facility] (DEFAULT)[address] [place] [address] Mean Cell Hgb Conc 32.3 g/dL Normal 31.4-35.9 [facility] Comment on above: Performed By: #### H EMOGC ####[facility] (DEFAULT)[address] [place] [address] Platelet mean volume (Bld) [Entitic vol] 9.1 fL Normal 8.5-12.2 [facility] Comment on above: Performed By: #### H EMOGC ####[facility] (DEFAULT)[address] [place] [address] Platelets (Bld) [#/Vol] 491 10*3/uL High 150-393 [facility] Comment on above: Performed By: #### H EMOGC ####[facility] (DEFAULT)[address] [place] [address] RBC (Bld) [#/Vol] 3.41 10*6/uL Low 3.91-5.04 [facility] Comment on above: Performed By: #### H EMOGC ####[facility] (DEFAULT)[address] [place] [address] RBC Distribution 15.9 % High 10.8-14.9 [facility] Comment on above: Performed By: #### H [facility] ####[facility] (DEFAULT)[address] [place] [address] WBC (Bld) [#/Vol] 4.97 10*3/uL Normal 3.99-11.19 [facility] Comment on above: Performed By: #### H [facility] ####[facility] (DEFAULT)[address] [place] [address] CHEM 7 (LYTES,BUN,CREA,GLUC) on 05-23-2024 Anion gap [Moles/Vol] 12 mmol/L 7 - 17 mmol/L [facility] Chloride [Moles/Vol] 99 mmol/L 98 - 10 8 mmol/L [facility] CO2 [Moles/Vol] 26 mmol/L 21 - 31 mmol/L [facility] Creatinine [Mass/Vol] 0.37 mg/dL Low 0.50 - 1.20 mg/dL [facility] eGFR, CKD-EPI, Female - PINF [facility] Glucose [Mass/Vol] 75 mg/dL 70 - 99 mg/dL [facility] Osmolality Calc [Osmolality] 277 Low [facility] Potassium [Moles/Vol] 3.6 mmol/L 3.5 - 5.0 mmol/L [facility] Sodium [Moles/Vol] 133 mmol/L Low 135 - 145 mmol/L [facility] Urea nitrogen [Mass/Vol] 11 mg/dL 7 - 25 mg/dL [facility] Urea nitrogen/Creatinine [Mass ratio] 30 mg/mg [facility] Anion gap [Moles/Vol] 12 mmol/L Normal 7-[address] [facility] Comment on above: Performed By: #### I MONIK SMART7, MGO ####[facility] (DEFAULT)[address] [place] [address] Chloride [Moles/Vol] 99 mmol/L Normal 98-108 [facility] Comment on above: Performed By: #### I PB, CHM7, MGO ####[facility] (DEFAULT)[address] [place] [address] CO2 [Moles/Vol] 26 mmol/L Normal 21-31 [facility] Comment on above: Performed By: #### I PB, CHM7, MGO ####[facility] (DEFAULT)[address] [place] [address] Creatinine [Mass/Vol] 0.37 mg/dL Low 0.50-1.20 [facility] Comment on above: Performed By: #### I PB, CHM7, MGO ####[facility] (DEFAULT)[address] [place] [address] eGFR, CKD-EPI, Female > Normal >=60 [facility] Comment on above: Result Comment: Repo rted eGFR is based on the CKD-EPI 2020 equation using creatinine, age, and sex. Performed By: #### I PB, CHM7, MGO ####[facility] (DEFAULT)[address] [place] [address] Glucose [Mass/Vol] 75 mg/dL Normal 70-99 [facility] Comment on above: Performed By: #### I PB, CHM7, MGO ####[facility] (DEFAULT)[address] [place] [address] Osmolality [Osmolality] 277 mosm/kg Low 278-305 [facility] Comment on above: Performed By: #### I PB, CHM7, MGO ####[facility] (DEFAULT)[address] [place] [address] Potassium [Moles/Vol] 3.6 mmol/L Normal 3.5-5.0 [facility] Comment on above: Performed By: #### I PB, CHM7, MGO ####[facility] (DEFAULT)[address] [place] [address] Sodium [Moles/Vol] 133 mmol/L Low 135-145 [facility] Comment on above: Performed By: #### I PB, CHM7, MGO ####[facility] (DEFAULT)[address] [place] [address] Urea nitrogen [Mass/Vol] 11 mg/dL Normal 7-25 [facility] Comment on above: Performed By: #### I PB, CHM7, MGO ####[facility] (DEFAULT)[address] [place] [address] Urea nitrogen/Creatinine [Mass ratio] 30 mg/mg Normal [facility] Comment on above: Performed By: #### I PB CHM7, MGO ####[facility] (DEFAULT)[address] [place] [address] IONIZED CALCIUM, SERUMOrdere d By: William Johnson on 05-23-2024 Calcium.ionized (Bld) [Moles/Vol] 4.66 mg/dL 4.60 - 5.30 mg/dL [facility] Interpretation and review of laboratory results Normal [facility] IONIZED CALCIUM, SERUMon ICA 4.66 mg/dL Normal 4.60-5.30 [facility] Comment on above: Performed By: #### I CASST ####[facility] (DEFAULT)[address] [place] [address] MAGNESIUMon 05-23-2024 Interpretation and review of laboratory results Normal [facility] Magnesium [Mass/Vol] 1.7 mg/dL 1.6 - 2 .6 mg/dL [facility] Magnesium [Mass/Vol] 1.7 mg/dL Normal 1.6-2.6 [facility] Comment on above: Performed By: #### I PB, CHM7, MGO ####[facility] (DEFAULT)[address] [place] [id number] No Panel Informationon 05-23 Interpretation and review of laboratory results [facility] PHOSPHATE, INORGANICon 05-23 Phosphate [Mass/Vol] 1.9 mg/dL Low 2.2 - 4 .6 mg/dL [facility] Phosphorous 1.9 mg/dL Low 2.2-4.6 [facility] Comment on above: Performed By: #### I PB, CHM7, MGO ####[facility] (DEFAULT)[address] [place] [address] CBC,PLATELETSon 05-22-2024 Erythrocyte distribution width (RBC) [Ratio] 15.9 % High 10.8 - 14.9 % [facility] Hematocrit (Bld) [Volume fraction] 33.0 % Low 34.9 - 44.3 % [facility] Hemoglobin (Bld) [Mass/Vol] 10.4 g/dL Low 11.4 - 15.2 g/dL [facility] Interpretation and review of laboratory results Abnormal [facility] MCH (RBC) [Entitic mass] 29.3 pg 25.9 - 33.9 pg [facility] MCHC (RBC) [Mass/Vol] 31.5 g/dL 31.4 - 35.9 g/dL [facility] MCV (RBC) [Entitic vol] 93.0 fL 79.6 - 97.7 fL [facility] Platelet mean volume (Bld) [Entitic vol] 9.1 fL 8.5 - 12.2 fL [facility] Platelets (Bld) [#/Vol] 477 10*3/uL High 150 - 393 K/uL [facility] RBC (Bld) [#/Vol] 3.55 10*6/uL Low [facility] WBC (Bld) [#/Vol] 5.59 10*3/uL 3.99 - 11.19 K/uL [facility] Hematocrit (Bld) [Volume fraction] 33.0 % Low 34.9-44.3 [facility] Comment on above: Performed By: #### H EMOGC ####[facility] (DEFAULT)[address] [place] [address] Hemoglobin (Bld) [Mass/Vol] 10.4 g/dL Low 11.4-15.2 [facility] Comment on above: Performed By: #### H EMOGC ####[facility] (DEFAULT)[address] [place] [address] MCV (RBC) [Entitic vol] 93.0 fL Normal 79.6-97.7 [facility] Comment on above: Performed By: #### H EMOGC ####[facility] (DEFAULT)[address] [place] [address] Mean Cell Hgb 29.3 pg Normal 25.9-33.9 [facility] Comment on above: Performed By: #### H EMOGC ####[facility] (DEFAULT)[address] [place] [address] Mean Cell Hgb Conc 31.5 g/dL Normal 31.4-35.9 [facility] Comment on above: Performed By: #### H EMOGC ####[facility] (DEFAULT)[address] [place] [address] Platelet mean volume (Bld) [Entitic vol] 9.1 fL Normal 8.5-12.2 [facility] Comment on above: Performed By: #### H EMOGC ####[facility] (DEFAULT)[address] [place] [address] Platelets (Bld) [#/Vol] 477 10*3/uL High 150-393 [facility] Comment on above: Performed By: #### H EMOGC ####[facility] (DEFAULT)[address] [place] [address] RBC (Bld) [#/Vol] 3.55 10*6/uL Low 3.91-5.04 [facility] Comment on above: Performed By: #### H EMOGC ####[facility] (DEFAULT)[address] [place] [address] RBC Distribution 15.9 % High 10.8-14.9 [facility] Comment on above: Performed By: #### H [facility] ####[facility] (DEFAULT)[address] [place] [address] WBC (Bld) [#/Vol] 5.59 10*3/uL Normal 3.99-11.19 [facility] Comment on above: Performed By: #### H [facility] ####[facility] (DEFAULT)[address] [place] [address] CHEM 7 (LYTES,BUN,CREA,GLUC) Ordered By: Edd Frost on 05-22-2024 Anion gap [Moles/Vol] 11 mmol/L 7 - 17 mmol/L [facility] Chloride [Moles/Vol] 102 mmol/L 98 - 10 8 mmol/L [facility] CO2 [Moles/Vol] 25 mmol/L 21 - 31 mmol/L [facility] Creatinine [Mass/Vol] 0.42 mg/dL Low 0.50 - 1.20 mg/dL [facility] eGFR, CKD-EPI, Female - PINF [facility] Glucose [Mass/Vol] 105 mg/dL High 70 - 99 mg/dL [facility] Interpretation and review of laboratory results Abnormal [facility] Osmolality Calc [Osmolality] 281 [facility] Potassium [Moles/Vol] 4.3 mmol/L 3.5 - 5.0 mmol/L [facility] Sodium [Moles/Vol] 134 mmol/L Low 135 - 145 mmol/L [facility] Urea nitrogen [Mass/Vol] 8 mg/dL 7 - 25 mg/dL [facility] Urea nitrogen/Creatinine [Mass ratio] 19 mg/[facility] CHEM 7 (LYTES,BUN,CREA,GLUC) on 05-22-2024 Anion gap [Moles/Vol] 11 mmol/L Normal 7-17 [facility] Comment on above: Performed By: #### M MARIA DEL CARMEN MARTINEZ, CHM7 ####[facility] (DEFAULT)[address] [place] [address] Chloride [Moles/Vol] 102 mmol/L Normal 98-108 [facility] Comment on above: Performed By: #### MARIA DEL CARMEN HERRERA, CHM7 ####[facility] (DEFAULT)[address] [place] [address] CO2 [Moles/Vol] 25 mmol/L Normal 21-31 [facility] Comment on above: Performed By: #### MARIA DEL CARMEN HERRERA CHM7 ####[facility] (DEFAULT)[address] [place] [address] Creatinine [Mass/Vol] 0.42 mg/dL Low 0.50-1.20 [facility] Comment on above: Performed By: #### MARIA DEL CARMEN HERRERA, CHM7 ####[facility] (DEFAULT)[address] [place] [address] eGFR, CKD-EPI, Female > Normal >=60 [facility] Comment on above: Result Comment: Repo rted eGFR is based on the CKD-EPI 1 equation using creatinine, age, and sex. Performed By: #### MARIA DEL CARMEN HERRERA CHM7 ####[facility] (DEFAULT)[address] [place] [address] Glucose [Mass/Vol] 105 mg/dL High 70-99 [facility] Comment on above: Performed By: #### MARIA DEL CARMEN HERRERA CHM7 ####[facility] (DEFAULT)[address] [place] [address] Osmolality [Osmolality] 281 mosm/kg Normal 278-305 [facility] Comment on above: Performed By: #### MARIA DEL CARMEN HERRERA, CHM7 ####[facility] (DEFAULT)[address] [place] [address] Potassium [Moles/Vol] 4.3 mmol/L Normal 3.5-5.0 [facility] Comment on above: Performed By: #### MARIA DEL CARMEN HERRERA, CHM7 ####[facility] (DEFAULT)[address] [place] [address] Sodium [Moles/Vol] 134 mmol/L Low 135-145 [facility] Comment on above: Performed By: #### MARIA DEL CARMEN HERRERA, CHM7 ####[facility] (DEFAULT)[address] [place] [address] Urea nitrogen [Mass/Vol] 8 mg/dL Normal 7-25 [facility] Comment on above: Performed By: #### MARIA DEL CARMEN HERRERA, CHM7 ####[facility] (DEFAULT)[address] [place] [address] Urea nitrogen/Creatinine [Mass ratio] 19 mg/mg Normal [facility] Comment on above: Performed By: #### MARIA DEL CARMEN HERRERA, CHM7 ####[facility] (DEFAULT)[address] [place] [address] IONIZED CALCIUM, SERUMOrdere d By: Jossy King on 05-22-2024 Calcium.ionized (Bld) [Moles/Vol] 4.80 mg/dL 4.60 - 5.30 mg/dL [facility] Interpretation and review of laboratory results Normal [facility] IONIZED CALCIUM, SERUMon ICA 4.80 mg/dL Normal 4.60-5.30 [facility] Comment on above: Performed By: #### I CASST ####[facility] (DEFAULT)[address] [place] [address] MAGNESIUMon 05-22-2024 Interpretation and review of laboratory results Normal [facility] Magnesium [Mass/Vol] 2.0 mg/dL 1.6 - 2 .6 mg/dL [facility] Magnesium [Mass/Vol] 2.0 mg/dL Normal 1.6-2.6 [facility] Comment on above: Performed By: #### M MARIA DEL CARMEN MARTINEZ CHM7 ####[facility] (DEFAULT)[address] [place] [id number] No Panel Informationon 05-22 [facility] PHOSPHATE, INORGANICon 05-22 Interpretation and review of laboratory results Abnormal [facility] Phosphate [Mass/Vol] 1.4 mg/dL Low 2.2 - 4 .6 mg/dL [facility] Phosphorous 1.4 mg/dL Low 2.2-4.6 [facility] Comment on above: Performed By: #### M MARIA DEL CARMEN MARTINEZ CHM7 ####[facility] (DEFAULT)[address] [place] [address] CBC AND ELECTRONIC DIFFon Basophils (Bld) [#/Vol] K/uL 0.00 - 0.15 K/uL [facility] Basophils/100 WBC (Bld) 0.2 % [facility] Differential cell count method Nom (Bld) Electronic Differential [facility] Eosinophils (Bld) [#/Vol] K/uL 0.00 - 0.42 K/uL [facility] Eosinophils/100 WBC (Bld) 0.0 % [facility] Erythrocyte distribution width (RBC) [Ratio] 15.7 % High 10.8 - 14.9 % [facility] Hematocrit (Bld) [Volume fraction] 29.3 % Low 34.9 - 44.3 % [facility] Hemoglobin (Bld) [Mass/Vol] 9.5 g/dL Low 11.4 - 15.2 g/dL [facility] Immature granulocytes (Bld) [#/Vol] K/uL NINF - 0.08 K/uL [facility] Immature granulocytes/100 WBC (Bld) 0.6 % [facility] Interpretation and review of laboratory results Abnormal [facility] Lymphocytes (Bld) [#/Vol] 0.25 10*3/uL Low 1.16 - 3.51 K/uL [facility] Lymphocytes/100 WBC (Bld) 5.1 % [facility] MCH (RBC) [Entitic mass] 30.1 pg 25.9 - 33.9 pg [facility] MCHC (RBC) [Mass/Vol] 32.4 g/dL 31.4 - 35.9 g/dL [facility] MCV (RBC) [Entitic vol] 92.7 fL 79.6 - 97.7 fL [facility] Monocytes (Bld) [#/Vol] 0.10 10*3/uL Low 0.22 - 0.87 K/uL [facility] Monocytes/100 WBC (Bld) 2.1 % [facility] Neutrophils (Bld) [#/Vol] 4.47 10*3/uL 1.64 - 7.28 K/uL [facility] Nucleated RBC/100 WBC (Bld) [Ratio] 0.0 % [facility] Platelet mean volume (Bld) [Entitic vol] 9.0 fL 8.5 - 12.2 fL [facility] Platelets (Bld) [#/Vol] 373 10*3/uL 150 - 393 K/uL [facility] RBC (Bld) [#/Vol] 3.16 10*6/uL Low [facility] Segmented neutrophils/100 WBC (Bld) 92.0 % [facility] WBC (Bld) [#/Vol] 4.86 10*3/uL 3.99 - 11.19 K/uL [facility] Abs Baso Auto < Normal 0.00-0.15 [facility] Comment on above: Performed By: #### L [id number] ####[facility] (DEFAULT)[address] [place] [address] Abs Eos Auto < Normal 0.00-0.42 [facility] Comment on above: Performed By: #### L [id number] ####[facility] (DEFAULT)[address] [place] [address] Basophils/100 WBC (Bld) 0.2 % Normal [facility] Comment on above: Performed By: #### L [id number] ####[facility] (DEFAULT)[address] [place] [address] DIFF STATUS Electronic Differential Normal [facility] Comment on above: Performed By: #### L [id number] ####[facility] (DEFAULT)[address] [place] [address] Eosinophils/100 WBC (Bld) 0.0 % Normal [facility] Comment on above: Performed By: #### L [id number] ####[facility] (DEFAULT)[address] [place] [address] Hematocrit (Bld) [Volume fraction] 29.3 % Low 34.9-44.3 [facility] Comment on above: Performed By: #### L [id number] ####[facility] (DEFAULT)[address] [place] [address] Hemoglobin (Bld) [Mass/Vol] 9.5 g/dL Low 11.4-15.2 [facility] Comment on above: Performed By: #### L [id number] ####[facility] (DEFAULT)[address] [place] [address] Immature Grans % 0.6 % Normal [facility] Comment on above: Performed By: #### L [id number] ####[facility] (DEFAULT)[address] [place] [address] Immature Grans Absolute < Normal <=0.08 [facility] Comment on above: Performed By: #### L [id number] ####[facility] (DEFAULT)[address] [place] [address] Lymphocytes (Bld) [#/Vol] 0.25 10*3/uL Low 1.16-3.51 [facility] Comment on above: Performed By: #### L [id number] ####[facility] (DEFAULT)[address] [place] [address] Lymphocytes/100 WBC (Bld) 5.1 % Normal [facility] Comment on above: Performed By: #### L [id number] ####[facility] (DEFAULT)[address] [place] [address] MCV (RBC) [Entitic vol] 92.7 fL Normal 79.6-97.7 [facility] Comment on above: Performed By: #### L [id number] ####[facility] (DEFAULT)[address] [place] [address] Mean Cell Hgb 30.1 pg Normal 25.9-33.9 [facility] Comment on above: Performed By: #### L [id number] ####[facility] (DEFAULT)[address] [place] [address] Mean Cell Hgb Conc 32.4 g/dL Normal 31.4-35.9 [facility] Comment on above: Performed By: #### L [id number] ####[facility] (DEFAULT)[address] [place] [address] Monocytes (Bld) [#/Vol] 0.10 10*3/uL Low 0.22-0.87 [facility] Comment on above: Performed By: #### L [id number] ####[facility] (DEFAULT)[address] [place] [address] Monocytes/100 WBC (Bld) 2.1 % Normal [facility] Comment on above: Performed By: #### L [id number] ####[facility] (DEFAULT)[address] [place] [address] Nucleated RBC 0.0 /100 WBC Normal <=0.2 [facility] Comment on above: Performed By: #### L [id number] ####[facility] (DEFAULT)[address] [place] [address] Platelet mean volume (Bld) [Entitic vol] 9.0 fL Normal 8.5-12.2 [facility] Comment on above: Performed By: #### L [id number] ####[facility] (DEFAULT)[address] [place] [address] Platelets (Bld) [#/Vol] 373 10*3/uL Normal 150-393 [facility] Comment on above: Performed By: #### L [id number] ####[facility] (DEFAULT)[address] [place] [address] RBC (Bld) [#/Vol] 3.16 10*6/uL Low 3.91-5.04 [facility] Comment on above: Performed By: #### L [id number] ####[facility] (DEFAULT)[address] [place] [address] RBC Distribution 15.7 % High 10.8-14.9 [facility] Comment on above: Performed By: #### L [id number] ####[facility] (DEFAULT)[address] [place] [address] Segs + Bands Auto 92.0 % Normal [facility] Comment on above: Performed By: #### L [id number] ####[facility] (DEFAULT)[address] [place] [address] Segs + Bands,Absolute Auto 4.47 K/uL Normal 1.64-7.28 [facility] Comment on above: Performed By: #### L [id number] ####[facility] (DEFAULT)[address] [place] [address] WBC (Bld) [#/Vol] 4.86 10*3/uL Normal 3.99-11.19 [facility] Comment on above: Performed By: #### L [id number] ####[facility] (DEFAULT)[address] [place] [address] CBC,PLATELETSon 05-21-2024 Erythrocyte distribution width (RBC) [Ratio] 15.5 % High 10.8 - 14.9 % [facility] Hematocrit (Bld) [Volume fraction] 25.7 % Low 34.9 - 44.3 % [facility] Hemoglobin (Bld) [Mass/Vol] 8.1 g/dL Low 11.4 - 15.2 g/dL [facility] Interpretation and review of laboratory results Abnormal [facility] MCH (RBC) [Entitic mass] 29.7 pg 25.9 - 33.9 pg [facility] MCHC (RBC) [Mass/Vol] 31.5 g/dL 31.4 - 35.9 g/dL [facility] MCV (RBC) [Entitic vol] 94.1 fL 79.6 - 97.7 fL [facility] Platelet mean volume (Bld) [Entitic vol] 9.1 fL 8.5 - 12.2 fL [facility] Platelets (Bld) [#/Vol] 262 10*3/uL 150 - 393 K/uL [facility] RBC (Bld) [#/Vol] 2.73 10*6/uL Low [facility] WBC (Bld) [#/Vol] 2.84 10*3/uL Low 3.99 - 11.19 K/uL [facility] Hematocrit (Bld) [Volume fraction] 25.7 % Low 34.9-44.3 [facility] Comment on above: Performed By: #### H [facility] ####[facility] (DEFAULT)[address] [place] [address] Hemoglobin (Bld) [Mass/Vol] 8.1 g/dL Low 11.4-15.2 [facility] Comment on above: Result Comment: Resu lts inconsistent with previous results. Performed By: #### H [facility] ####[facility] (DEFAULT)[address] [place] [address] MCV (RBC) [Entitic vol] 94.1 fL Normal 79.6-97.7 [facility] Comment on above: Performed By: #### H EMOGC ####[facility] (DEFAULT)[address] [place] [address] Mean Cell Hgb 29.7 pg Normal 25.9-33.9 [facility] Comment on above: Performed By: #### H EMOGC ####[facility] (DEFAULT)[address] [place] [address] Mean Cell Hgb Conc 31.5 g/dL Normal 31.4-35.9 [facility] Comment on above: Performed By: #### H EMOGC ####[facility] (DEFAULT)[address] [place] [address] Platelet mean volume (Bld) [Entitic vol] 9.1 fL Normal 8.5-12.2 [facility] Comment on above: Performed By: #### H EMOGC ####[facility] (DEFAULT)[address] [place] [address] Platelets (Bld) [#/Vol] 262 10*3/uL Normal 150-393 [facility] Comment on above: Performed By: #### H EMOGC ####[facility] (DEFAULT)[address] [place] [address] RBC (Bld) [#/Vol] 2.73 10*6/uL Low 3.91-5.04 [facility] Comment on above: Performed By: #### H EMOGC ####[facility] (DEFAULT)[address] [place] [address] RBC Distribution 15.5 % High 10.8-14.9 [facility] Comment on above: Performed By: #### H EMOGC ####[facility] (DEFAULT)[address] [place] [address] WBC (Bld) [#/Vol] 2.84 10*3/uL Low 3.99-11.19 [facility] Comment on above: Performed By: #### H [facility] ####[facility] (DEFAULT)[address] [place] [address] CHEM 7 (LYTES,BUN,CREA,GLUC) Ordered By: Sindy Herrera on 05-21-2024 Anion gap [Moles/Vol] 11 mmol/L 7 - 17 mmol[facility]L [facility] Chloride [Moles/Vol] 108 mmol/L 98 - 10 8 mmol/L [facility] CO2 [Moles/Vol] 22 mmol/L 21 - 31 mmol/L [facility] Creatinine [Mass/Vol] 0.31 mg/dL Low 0.50 - 1.20 mg/dL [facility] eGFR, CKD-EPI, Female - PINF [facility] Glucose [Mass/Vol] 95 mg/dL 70 - 99 mg/dL [facility] Osmolality Calc [Osmolality] 284 [facility] Potassium [Moles/Vol] 3.0 mmol/L Low 3.5 - 5.0 mmol/L [facility] Sodium [Moles/Vol] 138 mmol/L 135 - 145 mmol/L [facility] Urea nitrogen [Mass/Vol] 5 mg/dL Low 7 - 25 mg/dL [facility] Urea nitrogen/Creatinine [Mass ratio] 16 mg/mg [facility] CHEM 7 (LYTES,BUN,CREA,GLUC) on 05-21-2024 Anion gap [Moles/Vol] 11 mmol/L Normal 7-[address] [facility] Comment on above: Performed By: #### H FP, CHM7, IPB, MGO ####[facility] (DEFAULT)[address] [place] [address] Chloride [Moles/Vol] 108 mmol/L Normal 98-108 [facility] Comment on above: Performed By: #### H FP, CHM7, IPB, MGO ####[facility] (DEFAULT)[address] [place] [address] CO2 [Moles/Vol] 22 mmol/L Normal 21-31 [facility] Comment on above: Performed By: #### H BLAKE COFFEY, IPB, MGO ####[facility] (DEFAULT)[address] [place] [address] Creatinine [Mass/Vol] 0.31 mg/dL Low 0.50-1.20 [facility] Comment on above: Performed By: #### H BRISSA COFFEYMEwa, IPB, MGO ####[facility] (DEFAULT)[address] [place] [address] eGFR, CKD-EPI, Female > Normal >=60 [facility] Comment on above: Result Comment: Repo rted eGFR is based on the CKD-EPI 2020 equation using creatinine, age, and sex. Performed By: #### H BLAKE COFFEY, IPB, MGO ####[facility] (DEFAULT)[address] [place] [address] Glucose [Mass/Vol] 95 mg/dL Normal 70-99 [facility] Comment on above: Performed By: #### H ALEXX CHM7, IPB, MGO ####[facility] (DEFAULT)[address] [place] [address] Osmolality [Osmolality] 284 mosm/kg Normal 278-305 [facility] Comment on above: Performed By: #### H BRISSA COFFEYM7, IPB, MGO ####[facility] (DEFAULT)[address] [place] [address] Potassium [Moles/Vol] 3.0 mmol/L Low 3.5-5.0 [facility] Comment on above: Performed By: #### H ALEXX, CHM7, IPB, MGO ####[facility] (DEFAULT)[address] [place] [address] Sodium [Moles/Vol] 138 mmol/L Normal 135-145 [facility] Comment on above: Performed By: #### H FP, CHM7, IPB, MGO ####[facility] (DEFAULT)[address] [place] [address] Urea nitrogen [Mass/Vol] 5 mg/dL Low 7-25 [facility] Comment on above: Performed By: #### H FP, CHM7, IPB, MGO ####[facility] (DEFAULT)[address] [place] [address] Urea nitrogen/Creatinine [Mass ratio] 16 mg/mg Normal [facility] Comment on above: Performed By: #### H FP, CHM7, IPB, MGO ####[facility] (DEFAULT)[address] [place] [address] HEPATIC FUNCTION PANELon Albumin [Mass/Vol] 2.5 g/dL Low 3.5 - 5.0 g/dL [facility] ALP [Catalytic activity/Vol] 79 U/L 32 - 126 U/L [facility] ALT [Catalytic activity/Vol] 9 U/L 9 - 48 U/L [facility] AST [Catalytic activity/Vol] 21 U/L 10 - 39 U/L [facility] Bilirubin [Mass/Vol] 0.2 mg/dL [facility] - 1.5 mg/dL [facility] Bilirubin.direct [Mass/Vol] mg/dL NINF - 0.3 mg/dL [facility] Protein [Mass/Vol] 4.5 g/dL Low 6.4 - 8.3 g/dL [facility] Albumin [Mass/Vol] 2.5 g/dL Low 3.5-5.0 [facility] Comment on above: Performed By: #### H FP, CHM7, IPB, MGO ####[facility] (DEFAULT)[address] [place] [address] ALP [Catalytic activity/Vol] 79 U/L Normal 32-126 [facility] Comment on above: Performed By: #### H FP, CHM7, IPB, MGO ####[facility] (DEFAULT)[address] [place] [address] ALT [Catalytic activity/Vol] 9 U/L Normal 9-48 [facility] Comment on above: Performed By: #### H FP, CHM7, IPB, MGO ####[facility] (DEFAULT)[address] [place] [address] AST [Catalytic activity/Vol] 21 U/L Normal 10-39 [facility] Comment on above: Performed By: #### H FP, CHM7, IPB, MGO ####[facility] (DEFAULT)[address] [place] [address] Bilirubin [Mass/Vol] 0.2 mg/dL Normal <1.5 [facility] Comment on above: Performed By: #### H FP, CHM7, IPB, MGO ####[facility] (DEFAULT)[address] [place] [address] Bilirubin Direct < Normal <0.3 [facility] Comment on above: Performed By: #### H FP, CHM7, IPB, MGO ####[facility] (DEFAULT)[address] [place] [address] Protein [Mass/Vol] 4.5 g/dL Low 6.4-8.3 [facility] Comment on above: Performed By: #### H FP, CHM7, IPB, MGO ####[facility] (DEFAULT)[address] [place] [address] IONIZED CALCIUM, SERUMOrdere d By: Kenia Cano on 05-21-2024 Calcium.ionized (Bld) [Moles/Vol] 4.63 mg/dL 4.60 - 5.30 mg/dL [facility] Interpretation and review of laboratory results Normal [facility] IONIZED CALCIUM, SERUMon ICA 4.63 mg/dL Normal 4.60-5.30 [facility] Comment on above: Performed By: #### I CASST ####[facility] (DEFAULT)[address] [place] [address] MAGNESIUMon 05-21-2024 Magnesium [Mass/Vol] 1.5 mg/dL Low 1.6 - 2 .6 mg/dL [facility] Magnesium [Mass/Vol] 1.5 mg/dL Low 1.6-2.6 [facility] Comment on above: Performed By: #### H FP, CHM7, IPB, MGO ####[facility] (DEFAULT)[address] [place] [address] MR Cervical spine WO and W c ontrast Prashanth 05-21-2024 RADIOLOGY RADIOLOGY [facility] Radiology Study observation (narrative) [facility] MR Cervical spine WO and W c ontrast IVOrdered By: Tj Truong on 05-21-2024 [facility] Work Phone: MR Lumbar spine WO and W con trast Prashanth 05-21-2024 RADIOLOGY RADIOLOGY [facility] Radiology Study observation (narrative) [facility] MR Thoracic spine WO and W c ontrast Prashanth 05-21-2024 RADIOLOGY RADIOLOGY [facility] Radiology Study observation (narrative) [facility] MRI SPINE CERVICAL WITH AND WITHOUT CONTRASTon 05-21-2024 MRI SPINE CERVICAL WITH AND WITHOUT CONTRAST Normal [facility] MRI SPINE LUMBAR WITH AND WI THOUT CONTRASTon 05-21-2024 MRI SPINE LUMBAR WITH AND WITHOUT CONTRAST Normal [facility] MRI SPINE THORACIC WITH AND WITHOUT CONTRASTon 05-21-2024 MRI SPINE THORACIC WITH AND WITHOUT CONTRAST Normal [facility] No Panel InformationOrdered By: Sindy Herrera on 05-21-2024 Interpretation and review of laboratory results Abnormal [facility] No Panel Informationon 05-21 Interpretation and review of laboratory results Abnormal [facility] PHOSPHATE, INORGANICon 05-21 Phosphate [Mass/Vol] 1.7 mg/dL Low 2.2 - 4 .6 mg/dL [facility] Phosphorous 1.7 mg/dL Low 2.2-4.6 [facility] Comment on above: Performed By: #### H FP, CHM7, IPB, MGO ####[facility] (DEFAULT)[address] [place] [address] Portable XR Chest Viewson RADIOLOGY RADIOLOGY [facility] Radiology Study observation (narrative) [facility] Portable XR Chest ViewsOrder ed By: Tamiko Weinberg on 05-21-2024 [facility] Work Phone: XR CHEST 1 VIEW PORTABLEon 1 07-22-2023 XR CHEST 1 VIEW PORTABLE Normal [facility] CALCIUMon 05-20-2024 Calcium [Mass/Vol] 9.5 mg/dL 8.6 - 10. 5 mg/dL [facility] Calcium [Mass/Vol] 9.5 mg/dL Normal 8.6-10.5 [facility] Comment on above: Performed By: #### C A, MGO, IPB, CHM7 ####[facility] (DEFAULT)[address] [place] [address] Calcium [Mass/Vol] 10.2 mg/dL 8.6 - 10. 5 mg/dL [facility] Interpretation and review of laboratory results Normal [facility] Calcium [Mass/Vol] 10.2 mg/dL Normal 8.6-10.5 [facility] Comment on above: Performed By: #### C A ####[facility] (DEFAULT)[address] [place] [address] CBC,PLATELETSon 05-20-2024 Erythrocyte distribution width (RBC) [Ratio] 15.5 % High 10.8 - 14.9 % [facility] Hematocrit (Bld) [Volume fraction] 32.8 % Low 34.9 - 44.3 % [facility] Hemoglobin (Bld) [Mass/Vol] 10.4 g/dL Low 11.4 - 15.2 g/dL [facility] Interpretation and review of laboratory results Abnormal [facility] MCH (RBC) [Entitic mass] 29.7 pg 25.9 - 33.9 pg [facility] MCHC (RBC) [Mass/Vol] 31.7 g/dL 31.4 - 35.9 g/dL [facility] MCV (RBC) [Entitic vol] 93.7 fL 79.6 - 97.7 fL [facility] Platelet mean volume (Bld) [Entitic vol] 8.8 fL 8.5 - 12.2 fL [facility] Platelets (Bld) [#/Vol] 373 10*3/uL 150 - 393 K/uL [facility] RBC (Bld) [#/Vol] 3.50 10*6/uL Low [facility] WBC (Bld) [#/Vol] 5.33 10*3/uL 3.99 - 11.19 K/uL [facility] Hematocrit (Bld) [Volume fraction] 32.8 % Low 34.9-44.3 [facility] [facility] Comment on above: Performed By: #### H [facility] ####[facility] (DEFAULT)[address] [place] [address] Hemoglobin (Bld) [Mass/Vol] 10.4 g/dL Low 11.4-15.2 [facility] Comment on above: Performed By: #### H [facility] ####[facility] (DEFAULT)[address] [place] [address] MCV (RBC) [Entitic vol] 93.7 fL Normal 79.6-97.7 [facility] Comment on above: Performed By: #### H [facility] ####[facility] (DEFAULT)[address] [place] [address] Mean Cell Hgb 29.7 pg Normal 25.9-33.9 [facility] Comment on above: Performed By: #### H EMOGC ####[facility] (DEFAULT)[address] [place] [address] Mean Cell Hgb Conc 31.7 g/dL Normal 31.4-35.9 [facility] Comment on above: Performed By: #### H EMOGC ####[facility] (DEFAULT)[address] [place] [address] Platelet mean volume (Bld) [Entitic vol] 8.8 fL Normal 8.5-12.2 [facility] Comment on above: Performed By: #### H EMOGC ####[facility] (DEFAULT)[address] [place] [address] Platelets (Bld) [#/Vol] 373 10*3/uL Normal 150-393 [facility] Comment on above: Performed By: #### H EMOGC ####[facility] (DEFAULT)[address] [place] [address] RBC (Bld) [#/Vol] 3.50 10*6/uL Low 3.91-5.04 [facility] Comment on above: Performed By: #### H EMOGC ####[facility] (DEFAULT)[address] [place] [address] RBC Distribution 15.5 % High 10.8-14.9 [facility] Comment on above: Performed By: #### H EMOGC ####[facility] (DEFAULT)[address] [place] [address] WBC (Bld) [#/Vol] 5.33 10*3/uL Normal 3.99-11.19 [facility] Comment on above: Performed By: #### H EMOGC ####[facility] (DEFAULT)[address] [place] [address] CHEM 7 (LYTES,BUN,CREA,GLUC) on 05-20-2024 Anion gap [Moles/Vol] 13 mmol/L 7 - 17 mmol/L [facility] Chloride [Moles/Vol] 102 mmol/L 98 - 10 8 mmol/L [facility] CO2 [Moles/Vol] 25 mmol/L 21 - 31 mmol/L [facility] Creatinine [Mass/Vol] 0.51 mg/dL 0.50 - 1.20 mg/dL [facility] eGFR, CKD-EPI, Female - PINF [facility] Glucose [Mass/Vol] 101 mg/dL High 70 - 99 mg/dL [facility] Interpretation and review of laboratory results Abnormal [facility] Osmolality Calc [Osmolality] 283 [facility] Potassium [Moles/Vol] 3.9 mmol/L 3.5 - 5.0 mmol/L [facility] Sodium [Moles/Vol] 136 mmol/L 135 - 145 mmol/L [facility] Urea nitrogen [Mass/Vol] 7 mg/dL 7 - 25 mg/dL [facility] Urea nitrogen/Creatinine [Mass ratio] 14 mg/mg [facility] Anion gap [Moles/Vol] 13 mmol/L Normal 7-17 [facility] Comment on above: Performed By: #### C DOMO Conner IPB, CHM7 ####[facility] (DEFAULT)[address] [place] [address] Chloride [Moles/Vol] 102 mmol/L Normal 98-108 [facility] Comment on above: Result Comment: Resu lts inconsistent with previous results Performed By: #### DOMO Gallo IPB, CHM7 ####[facility] (DEFAULT)[address] [place] [address] CO2 [Moles/Vol] 25 mmol/L Normal 21-31 [facility] Comment on above: Performed By: #### C A, MGO, IPB, CHM7 ####[facility] (DEFAULT)[address] [place] [address] Creatinine [Mass/Vol] 0.51 mg/dL Normal 0.50-1.20 [facility] Comment on above: Performed By: #### Gila Conner, MGO, IPB, CHM7 ####[facility] (DEFAULT)[address] [place] [address] eGFR, CKD-EPI, Female > Normal >=60 [facility] Comment on above: Result Comment: Repo rted eGFR is based on the CKD-EPI 2020 equation using creatinine, age, and sex. Performed By: #### Gila Conner, MGO, IPB, CHM7 ####[facility] (DEFAULT)[address] [place] [address], [place] [address] Glucose [Mass/Vol] 101 mg/dL High 70-99 [facility] Comment on above: Performed By: #### Gila A, MGO, IPB, CHM7 ####[facility] (DEFAULT)[address] [place], [place] [address], [place] [address] Osmolality [Osmolality] 283 mosm/kg Normal 278-305 [facility] Comment on above: Performed By: #### Gila Conner, MGO, IPB, CHM7 ####[facility] (DEFAULT)[address] [place] [address] Potassium [Moles/Vol] 3.9 mmol/L Normal 3.5-5.0 [facility] Comment on above: Performed By: #### Gila A, MGO, IPB, CHM7 ####[facility] (DEFAULT)[address] [place] [address], [place] [address] Sodium [Moles/Vol] 136 mmol/L Normal 135-145 [facility] Comment on above: Performed By: #### Gila A, MGO, IPB, CHM7 ####[facility] (DEFAULT)[address] [place] [address] Urea nitrogen [Mass/Vol] 7 mg/dL Normal 7-25 [facility] Comment on above: Performed By: #### DOMO Gallo IPB, CHM7 ####[facility] (DEFAULT)[address] [place] [address] Urea nitrogen/Creatinine [Mass ratio] 14 mg/mg Normal [facility] Comment on above: Performed By: #### C DOMO Conner IPB, CHM7 ####[facility] (DEFAULT)[address] [place] [address] IONIZED CALCIUM, SERUMOrdere d By: Mishel Pleitez on 05-20-2024 Calcium.ionized (Bld) [Moles/Vol] 5.55 mg/dL High 4.60 - 5.30 mg/dL [facility] Interpretation and review of laboratory results Abnormal [facility] IONIZED CALCIUM, SERUMon ICA 5.55 mg/dL High 4.60-5.30 [facility] Comment on above: Performed By: #### I CASST ####[facility] (DEFAULT)[address] [place] [address] MAGNESIUMon 05-20-2024 Interpretation and review of laboratory results Abnormal [facility] Magnesium [Mass/Vol] 1.3 mg/dL Low 1.6 - 2 .6 mg/dL [facility] Magnesium [Mass/Vol] 1.3 mg/dL Low 1.6-2.6 [facility] Comment on above: Performed By: #### DOMO Gallo IPB, CHM7 ####[facility] (DEFAULT)[address] [place] [address] No Panel Informationon 05-20 Interpretation and review of laboratory results Normal [facility] PHOSPHATE, INORGANICon 05-20 Phosphate [Mass/Vol] 2.3 mg/dL 2.2 - 4 .6 mg/dL [facility] Phosphorous 2.3 mg/dL Normal 2.2-4.6 [facility] Comment on above: Performed By: #### C A, DOMO, IPB, CHM7 ####[facility] (DEFAULT)[address] [place] [address] CALCIUMOrdered By: Belkis Lockhart on 05-19-2024 Calcium [Mass/Vol] 11.1 mg/dL High 8.6 - 10. 5 mg/dL [facility] Interpretation and review of laboratory results Abnormal [facility] CALCIUMon 05-19-2024 Calcium [Mass/Vol] 11.1 mg/dL High 8.6-10.5 [facility] Comment on above: Performed By: #### C A ####[facility] (DEFAULT)[address] [place] [address] Calcium [Mass/Vol] 13.3 mg/dL Critically high 8.6-10.5 [facility] Comment on above: Performed By: #### C A ####[facility] (DEFAULT)[address] [place] [address] CALCIUMOrdered By: Haley shields on 05-19-2024 Calcium [Mass/Vol] 13.3 mg/dL Critically high 8.6 - 10.5 mg/dL [facility] Interpretation and review of laboratory results Abnormal [facility] CT ABDOMEN/PELVIS WITH CONTR Enma 05-19-2024 CT ABDOMEN/PELVIS WITH CONTRAST Normal [facility] CT Abdomen and Pelvis W cont rast Prashanth 05-19-2024 RADIOLOGY RADIOLOGY [facility] Radiology Study observation (narrative) [facility] CT Abdomen and Pelvis W cont rast IVOrdered By: Zee Woodward on 05-19-2024 [facility] Work Phone: EXTRA MICROon 05-19-2024 [facility] IONIZED CALCIUM, SERUMOrdere d By: Valentina Carlson on 05-19-2024 Calcium.ionized (Bld) [Moles/Vol] 6.99 mg/dL Critically high 4.60 - 5.30 mg/dL [facility] Interpretation and review of laboratory results Abnormal [facility] IONIZED CALCIUM, SERUMon ICA 6.99 mg/dL Critically high 4.60-5.30 [facility] Comment on above: Performed By: #### I CASST ####[facility] (DEFAULT)[address] [place] [address] MR Brain WO and W contrast I Von 05-19-2024 RADIOLOGY RADIOLOGY [facility] Radiology Study observation (narrative) [facility] MR Brain WO and W contrast I VOrdered By: Ivan Ziegler on 05-19-2024 [facility] Work Phone: MRI BRAIN WITH AND WITHOUT C ONTRASTon 05-19-2024 MRI BRAIN WITH AND WITHOUT CONTRAST Normal [facility] PTH INTACTon 05-19-2024 Interpretation and review of laboratory results Abnormal [facility] Parathyrin.intact [Mass/Vol] 9.0 pg/mL Low 14.0 - 72.0 pg/mL [facility] Intact PTH 9.0 pg/mL Low 14.0-72.0 [facility] Comment on above: Performed By: #### I PTH ####[facility] (DEFAULT)[address] [place] [address] PTH RELATED PROTEINon 2023 PTH RELATED PEPTIDE TNP Normal [facility] Comment on above: Result Comment: PTH- Related Peptide was cancelled on 05/24/2024 at 09:39;Specimen was hemolyzed.Test Performed by:[facility] [place], [place] [address]Weu Director: Veronica Ivy Ph.D.; CLIA# [id number] Performed By: #### Y PTHRP ####[facility] (DEFAULT)[address] [place] [address] Portable XR Chest Viewson RADIOLOGY RADIOLOGY [facility] Portable XR Chest ViewsOrder ed By: Han Piña on 05-19-2024 [facility] Work Phone: URINALYSIS REFLEX TO CULTURE PERFORMABLEOrdered By: Mal Boo on 05-19-2024 Appearance (U) Cloudy [facility]normal [facility] Bacteria LM Ql (Urine sed) PRESENT Abnormal ABSENT [facility] Color (U) Yellow Yellow [facility] Epithelial cells.squamous LM Ql (Urine sed) 3-5/hpf = 1+ 0-2/hpf, 3-5/hpf = 1+ [facility] Glucose Test strip (U) [Mass/Vol] Negative Negative [facility] Granular casts (Urine sed) [#/Area] 0 - 2 Abnormal /LPF [facility] Hyaline casts (Urine sed) [#/Area] /[LPF] Abnormal (none) /LPF [facility] Interpretation and review of laboratory results Abnormal [facility] Ketones (U) [Mass/Vol] 15 mg/dL = Small Abnormal Negativ e [facility] Leukocyte esterase Test strip Ql (U) Trace Abnormal Negative [facility] Nitrite Ql (U) Negative Negative [facility] pH (U) 5.5 [pH] 5.0 - 7.0 [facility] Protein (U) [Mass/Vol] 30 mg/dL Abnormal Negative [facility] RBC (U) [#/Vol] Negative Negative [facility] RBC LM.HPF (Urine sed) [#/Area] 3-5 Abnormal [facility] Specific gravity (U) [Rel density] 1.017 1.001 - 1.035 [facility] Urobilinogen (U) [Mass/Vol] 0.2 E.U./dL 0.2 E.U/dL, 1.0 E.U/dL [facility] WBC LM.HPF (Urine sed) [#/Area] 11 - 20 Abnormal [facility] VITAMIN D (25-HYDROXY,TOTAL) on 05-19-2024 Interpretation and review of laboratory results Normal [facility] Vitamin D+Metabolites [Mass/Vol] 40.8 ng/mL 30.0 - 100.0 ng/mL [facility] 25-OH Vitamin D Total 40.8 ng/mL Normal 30.0-100.[address] [facility] Comment on above: Order Comment: Vitam in D values have been shown to be falsely decreased in lipemic samples and should be interpreted with caution. Result Comment: <10 [id number] [id number] Optimal Level>100 Possible Toxicity Performed By: #### D 25OH ####[facility] (DEFAULT)[address] [place] [address] XR CHEST 1 VIEW PORTABLEon 1 07-20-2023 XR CHEST 1 VIEW PORTABLE Normal [facility] CALCIUMOrdered By: Lan sevilla on 05-18-2024 Calcium [Mass/Vol] 13.6 mg/dL Critically high 8.6 - 10.5 mg/dL [facility] Interpretation and review of laboratory results Abnormal [facility] CALCIUMon 05-18-2024 Calcium [Mass/Vol] 13.6 mg/dL Critically high 8.6-10.5 [facility] Comment on above: Order Comment: On Ad mission Performed By: #### M GO, CHM7, IPB, CA, LDO, HFP ####[facility] (DEFAULT)[address] [place] [address] CBC,PLATELETSon 05-18-2024 Erythrocyte distribution width (RBC) [Ratio] 15.4 % High 10.8 - 14.9 % [facility] Hematocrit (Bld) [Volume fraction] 37.7 % 34.9 - 44.3 % [facility] Hemoglobin (Bld) [Mass/Vol] 12.3 g/dL 11.4 - 15.2 g/dL [facility] Interpretation and review of laboratory results Abnormal [facility] MCH (RBC) [Entitic mass] 29.5 pg 25.9 - 33.9 pg [facility] MCHC (RBC) [Mass/Vol] 32.6 g/dL 31.4 - 35.9 g/dL [facility] MCV (RBC) [Entitic vol] 90.4 fL 79.6 - 97.7 fL [facility] Platelet mean volume (Bld) [Entitic vol] 9.1 fL 8.5 - 12.2 fL [facility] Platelets (Bld) [#/Vol] 376 10*3/uL 150 - 393 K/uL [facility] RBC (Bld) [#/Vol] 4.17 10*6/uL [facility] WBC (Bld) [#/Vol] 4.38 10*3/uL 3.99 - 11.19 K/uL [facility] Hematocrit (Bld) [Volume fraction] 37.7 % Normal 34.9-44.3 [facility] Comment on above: Order Comment: On Ad mission Performed By: #### H [facility] ####[facility] (DEFAULT)[address] [place] [address] Hemoglobin (Bld) [Mass/Vol] 12.3 g/dL Normal 11.4-15.2 [facility] Comment on above: Order Comment: On Ad mission Performed By: #### H [facility] ####[facility] (DEFAULT)[address] [place] [address] MCV (RBC) [Entitic vol] 90.4 fL Normal 79.6-97.7 [facility] Comment on above: Order Comment: On Ad mission Performed By: #### H [facility] ####[facility] (DEFAULT)[address] [place] [address] Mean Cell Hgb 29.5 pg Normal 25.9-33.9 [facility] Comment on above: Order Comment: On Ad mission Performed By: #### H EMOGC ####[facility] (DEFAULT)[address] [place] [address] Mean Cell Hgb Conc 32.6 g/dL Normal 31.4-35.9 [facility] Comment on above: Order Comment: On Ad mission Performed By: #### H EMOGC ####[facility] (DEFAULT)[address] [place] [address] Platelet mean volume (Bld) [Entitic vol] 9.1 fL Normal 8.5-12.2 [facility] Comment on above: Order Comment: On Ad mission Performed By: #### H EMOGC ####[facility] (DEFAULT)[address] [place] [address] Platelets (Bld) [#/Vol] 376 10*3/uL Normal 150-393 [facility] Comment on above: Order Comment: On Ad mission Performed By: #### H EMOGC ####[facility] (DEFAULT)[address] [place] [address] RBC (Bld) [#/Vol] 4.17 10*6/uL Normal 3.91-5.04 [facility] Comment on above: Order Comment: On Ad mission Performed By: #### H EMOGC ####[facility] (DEFAULT)[address] [place] [address] RBC Distribution 15.4 % High 10.8-14.9 [facility] Comment on above: Order Comment: On Ad mission Performed By: #### H EMOGC ####[facility] (DEFAULT)[address] [place] [address] WBC (Bld) [#/Vol] 4.38 10*3/uL Normal 3.99-11.19 [facility] Comment on above: Order Comment: On Ad mission Performed By: #### H EMOGC ####[facility] (DEFAULT)[address] [place] [address] CHEM 7 (LYTES,BUN,CREA,GLUC) on 05-18-2024 Anion gap [Moles/Vol] 18 mmol/L High 7 - 17 mmol/L [facility] Chloride [Moles/Vol] 92 mmol/L Low 98 - 10 8 mmol/L [facility] CO2 [Moles/Vol] 27 mmol/L 21 - 31 mmol/L [facility] Creatinine [Mass/Vol] 0.72 mg/dL 0.50 - 1.20 mg/dL [facility] eGFR, CKD-EPI, Female - PINF [facility] Glucose [Mass/Vol] 95 mg/dL 70 - 99 mg/dL [facility] Osmolality Calc [Osmolality] 282 [facility] Potassium [Moles/Vol] 4.4 mmol/L 3.5 - 5.0 mmol/L [facility] Sodium [Moles/Vol] 133 mmol/L Low 135 - 145 mmol/L [facility] Urea nitrogen [Mass/Vol] 18 mg/dL 7 - 25 mg/dL [facility] Urea nitrogen/Creatinine [Mass ratio] 25 mg/mg [facility] Anion gap [Moles/Vol] 18 mmol/L High -17 [facility] Comment on above: Order Comment: On Ad mission Performed By: #### M BLAKE MARTINEZ, IPB, CA, LDO, HFP ####[facility] (DEFAULT)[address] [place] [address] Chloride [Moles/Vol] 92 mmol/L Low 98-108 [facility] Comment on above: Order Comment: On Ad mission Performed By: #### M MONIK MARTINEZ7, IPB, CA, LDO, HFP ####[facility] (DEFAULT)[address] [place] [address] CO2 [Moles/Vol] 27 mmol/L Normal 21-31 [facility] Comment on above: Order Comment: On Ad mission Performed By: #### M GO, CHM7, IPB, CA, LDO, HFP ####[facility] (DEFAULT)[address] [place] [address] Creatinine [Mass/Vol] 0.72 mg/dL Normal 0.50-1.20 [facility] Comment on above: Order Comment: On Ad mission Performed By: #### M GO, CHM7, IPB, CA, LDO, HFP ####[facility] (DEFAULT)[address] [place] [address] eGFR, CKD-EPI, Female > Normal >=60 [facility] Comment on above: Order Comment: On Ad mission Result Comment: Repo rted eGFR is based on the CKD-EPI 2020 equation using creatinine, age, and sex. Performed By: #### M GO, CHM7, IPB, CA, LDO, HFP ####[facility] (DEFAULT)[address] [place] [address] Glucose [Mass/Vol] 95 mg/dL Normal 70-99 [facility] Comment on above: Order Comment: On Ad mission Performed By: #### M GO, CHM7, IPB, CA, LDO, HFP ####[facility] (DEFAULT)[address] [place] [address] Osmolality [Osmolality] 282 mosm/kg Normal 278-305 [facility] Comment on above: Order Comment: On Ad mission Performed By: #### M GO, CHM7, IPB, CA, LDO, HFP ####[facility] (DEFAULT)[address] [place] [address] Potassium [Moles/Vol] 4.4 mmol/L Normal 3.5-5.0 [facility] Comment on above: Order Comment: On Ad mission Performed By: #### M GO, CHM7, IPB, CA, LDO, HFP ####[facility] (DEFAULT)[address] [place] [address] Sodium [Moles/Vol] 133 mmol/L Low 135-145 [facility] Comment on above: Order Comment: On Ad mission Performed By: #### M GO, CHM7, IPB, CA, LDO, HFP ####[facility] (DEFAULT)[address] [place] [address] Urea nitrogen [Mass/Vol] 18 mg/dL Normal 7-25 [facility] Comment on above: Order Comment: On Ad mission Performed By: #### M GO, CHM7, IPB, CA, LDO, HFP ####[facility] (DEFAULT)[address] [place] [address] Urea nitrogen/Creatinine [Mass ratio] 25 mg/mg Normal [facility] Comment on above: Order Comment: On Ad mission Performed By: #### M GO, CHM7, IPB, CA, LDO, HFP ####[facility] (DEFAULT)[address] [place] [address] HEPATIC FUNCTION PANELon Albumin [Mass/Vol] 3.6 g/dL 3.5 - 5.0 g/dL [facility] ALP [Catalytic activity/Vol] 126 U/L 32 - 126 U/L [facility] ALT [Catalytic activity/Vol] 16 U/L 9 - 48 U/L [facility] AST [Catalytic activity/Vol] 40 U/L High 10 - 39 U/L [facility] Bilirubin [Mass/Vol] 0.4 mg/dL NINF - 1.5 mg/dL [facility] Bilirubin.direct [Mass/Vol] mg/dL NINF - 0.3 mg/dL [facility] Protein [Mass/Vol] 6.9 g/dL 6.4 - 8.3 g/dL [facility] Albumin [Mass/Vol] 3.6 g/dL Normal 3.5-5.0 [facility] Comment on above: Order Comment: On Ad mission Performed By: #### M GO, CHM7, IPB, CA, LDO, HFP ####[facility] (DEFAULT)[address] [place] [address] ALP [Catalytic activity/Vol] 126 U/L Normal 32-126 [facility] Comment on above: Order Comment: On Ad mission Performed By: #### M GO, CHM7, IPB, CA, LDO, HFP ####[facility] (DEFAULT)[address] [place] [address] ALT [Catalytic activity/Vol] 16 U/L Normal 9-48 [facility] Comment on above: Order Comment: On Ad mission Performed By: #### M GO, CHM7, IPB, CA, LDO, HFP ####[facility] (DEFAULT)[address] [place] [address] AST [Catalytic activity/Vol] 40 U/L High 10-39 [facility] Comment on above: Order Comment: On Ad mission Performed By: #### M GO, CHM7, IPB, CA, LDO, HFP ####[facility] (DEFAULT)[address] [place] [address] Bilirubin [Mass/Vol] 0.4 mg/dL Normal <1.5 [facility] Comment on above: Order Comment: On Ad mission Performed By: #### M GO, CHM7, IPB, CA, LDO, HFP ####[facility] (DEFAULT)[address] [place] [address] Bilirubin Direct < Normal <0.3 [facility] Comment on above: Order Comment: On Ad mission Result Comment: Spec imen hemolyzed. Direct bilirubin results may be falsely decreased. Interpret within the clinical context. Performed By: #### M GO, CHM7, IPB, CA, LDO, HFP ####[facility] (DEFAULT)[address] [place] [address] Protein [Mass/Vol] 6.9 g/dL Normal 6.4-8.3 [facility] Comment on above: Order Comment: On Ad mission Performed By: #### M MICHELLE CHM7, IPB, CA, LDO, HFP ####[facility] (DEFAULT)[address] [place] [address] LACTATE DEHYDROGENASEon 05-02 LDH Lactate to pyruvate reaction [Catalytic activity/Vol] 224 U/L High 100 - 190 U/L [facility] LD Total 224 U/L High 100-190 [facility] Comment on above: Order Comment: On Ad mission Result Comment: Spec imen slightly hemolyzed. LDH results may be falsely elevated. Interpret within the clinical context. Performed By: #### M MICHELLE, BRISSAM7, IPB, CA, LDO, HFP ####[facility] (DEFAULT)[address] [place] [address] MAGNESIUMon 05-18-2024 Magnesium [Mass/Vol] 1.7 mg/dL 1.6 - 2 .6 mg/dL [facility] Magnesium [Mass/Vol] 1.7 mg/dL Normal 1.6-2.6 [facility] Comment on above: Order Comment: On Ad mission Performed By: #### M BLAKE MARTINEZ, IPB, CA, LDO, HFP ####[facility] (DEFAULT)[address] [place] [address] No Panel Informationon 05-18 Interpretation and review of laboratory results Abnormal [facility] Interpretation and review of laboratory results Normal [facility] PHOSPHATE, INORGANICon 05-18 Phosphate [Mass/Vol] 3.4 mg/dL 2.2 - 4 .6 mg/dL [facility] Phosphorous 3.4 mg/dL Normal 2.2-4.6 [facility] Comment on above: Order Comment: On Ad mission Performed By: #### M MICHELLE, CHM7, IPB, CA, LDO, HFP ####[facility] (DEFAULT)[address] [place] [address] PROTIME-INRon 12-17-2024 INR Coag (Bld) [Relative time] 1.0 {INR} 0.9 - 1.1 [facility] Interpretation and review of laboratory results Normal [facility] PT Coag (PPP) [Time] 13.3 s [facility] INR Coag (PPP) [Relative time] 1.0 {INR} Normal 0.9-1.1 [facility] Comment on above: Order Comment: On Ad mission Performed By: #### P TI ####[facility] (DEFAULT)[address] [place] [address] PT Coag (PPP) [Time] 13.3 s Normal 11.9-14.2 [facility] Comment on above: Order Comment: On Ad mission Performed By: #### P TI ####[facility] (DEFAULT)[address] [place] [address], [place] [address] Portable XR Chest Viewson Radiology Study observation (narrative) [facility] URINALYSIS REFLEX TO CULTURE PERFORMABLEon 05-18-2024 Appearance (U) Cloudy Abnormal Clear [facility] Comment on above: Order Comment: For i ndwelling catheters, specimen collection is acceptable on catheter day 1 and 2 only. ? Performed By: #### U [id number] ####[facility] (DEFAULT)[address] [place] [address], [place] [address] Bacteria PRESENT Abnormal ABSENT [facility] Comment on above: Order Comment: For i ndwelling catheters, specimen collection is acceptable on catheter day 1 and 2 only. ? Performed By: #### U [id number] ####[facility] (DEFAULT)[address] [place] [address] Blood Urine Negative Normal Negative [facility] Comment on above: Order Comment: For i ndwelling catheters, specimen collection is acceptable on catheter day 1 and 2 only. ? Performed By: #### U [id number] ####[facility] (DEFAULT)[address] [place] [address] Color (U) Yellow Normal Yellow [facility] Comment on above: Order Comment: For i ndwelling catheters, specimen collection is acceptable on catheter day 1 and 2 only. ? Performed By: #### U [id number] ####[facility] (DEFAULT)[address] [place] [address] Glucose Ql (U) Negative Normal Negative [facility] Comment on above: Order Comment: For i ndwelling catheters, specimen collection is acceptable on catheter day 1 and 2 only. ? Performed By: #### U [id number] ####[facility] (DEFAULT)[address] [place] [address] Granular Casts 0 - 2 Abnormal [facility] Comment on above: Order Comment: For i ndwelling catheters, specimen collection is acceptable on catheter day 1 and 2 only. ? Performed By: #### U [id number] ####[facility] (DEFAULT)[address] [place] [address], [place] [address] Hyaline casts LM Ql (Urine sed) > 20 Abnormal (none) [facility] Comment on above: Order Comment: For i ndwelling catheters, specimen collection is acceptable on catheter day 1 and 2 only. ? Performed By: #### U [id number] ####[facility] (DEFAULT)[address] [place] [address] Ketones Ql (U) 15 mg/dL = Small Abnormal Negative [facility] Comment on above: Order Comment: For i ndwelling catheters, specimen collection is acceptable on catheter day 1 and 2 only. ? Performed By: #### U [id number] ####[facility] (DEFAULT)[address] [place] [address], [place] [address] Leukocyte esterase Test strip Ql (U) Trace Abnormal Negative [facility] Comment on above: Order Comment: For i ndwelling catheters, specimen collection is acceptable on catheter day 1 and 2 only. ? Performed By: #### U [id number] ####[facility] (DEFAULT)[address] [place] [address] Nitrites Urine Negative Normal Negative [facility] Comment on above: Order Comment: For i ndwelling catheters, specimen collection is acceptable on catheter day 1 and 2 only. ? Performed By: #### U [id number] ####[facility] (DEFAULT)[address] [place] [address] pH (U) 5.5 [pH] Normal 5.0-7.0 [facility] Comment on above: Order Comment: For i ndwelling catheters, specimen collection is acceptable on catheter day 1 and 2 only. ? Performed By: #### U [id number] ####[facility] (DEFAULT)[address] [place] [address] Protein Urine 30 mg/dL Abnormal Negative [facility] Comment on above: Order Comment: For i ndwelling catheters, specimen collection is acceptable on catheter day 1 and 2 only. ? Performed By: #### U [id number] ####[facility] (DEFAULT)[address] [place], [place] [address], [place] [address] RBC Urine 3-5 Abnormal 0-2 [facility] Comment on above: Order Comment: For i ndwelling catheters, specimen collection is acceptable on catheter day 1 and 2 only. ? Performed By: #### U [id number] ####[facility] (DEFAULT)[address] [place] [address], [place] [address] Specific Ringle Urine 1.017 Normal 1.001 -1.03 5 [facility] Comment on above: Order Comment: For i ndwelling catheters, specimen collection is acceptable on catheter day 1 and 2 only. ? Performed By: #### U [id number] ####[facility] (DEFAULT)[address] [place], [place] [address], [place] [address] Squamous/Epithelial Cells 3-5/hpf = 1+ Normal 0-2/hpf, 3-5/hpf = 1+ [facility] Comment on above: Order Comment: For i ndwelling catheters, specimen collection is acceptable on catheter day 1 and 2 only. ? Performed By: #### U [id number] ####[facility] (DEFAULT)[address] [place] [address] Urobilinogen Urine 0.2 E.U./dL Normal 0.2 E.U/dL, 1.0 E.U/dL [facility] Comment on above: Order Comment: For i ndwelling catheters, specimen collection is acceptable on catheter day 1 and 2 only. ? Performed By: #### U [id number] ####[facility] (DEFAULT)[address] [place] [address] WBC Urine 11 - 20 Abnormal 0 - 5 [facility] Comment on above: Order Comment: For i ndwelling catheters, specimen collection is acceptable on catheter day 1 and 2 only. ? Performed By: #### U [id number] ####[facility] (DEFAULT)[address] [place] [address] URINE CULTUREon 05-18-2024 Bacteria identified Cx Nom (U) Normal [facility] Comment on above: Order Comment: For i ndwelling catheters, specimen collection is acceptable on catheter day 1 and 2 only. Beaver top vacutainer. Urine must be to the fill line to process (4mls). If minimum volume, send urine in a yellow top vacutainer tube.For indwelling catheters, specimen collection is acceptable on catheter day 1 and 2 only. ? Result Comment: Grow [id number] MICROBESMIXED MICROBES>100,000 CFU/mL Mixed microbesDisregard previously reported E.COLI/CITROBACTER-LIKE. After additional incubation, uropathogen was mixed with skin/urogenital adelina. Suggest re-collection if clinically indicated. Performed By: #### U R ####[facility] (DEFAULT)[address] [place] [address] CBC AND ELECTRONIC DIFFon Basophils (Bld) [#/Vol] K/uL 0.00 - 0.15 K/uL [facility] Basophils/100 WBC (Bld) 0.6 % [facility] Differential cell count method Nom (Bld) Electronic Differential [facility] Eosinophils (Bld) [#/Vol] 0.06 10*3/uL 0.00 - 0.42 K/uL [facility] Eosinophils/100 WBC (Bld) 1.8 % [facility] Erythrocyte distribution width (RBC) [Ratio] 15.2 % High 10.8 - 14.9 % [facility] Hematocrit (Bld) [Volume fraction] 39.8 % 34.9 - 44.3 % [facility] Hemoglobin (Bld) [Mass/Vol] 12.9 g/dL 11.4 - 15.2 g/dL [facility] Immature granulocytes (Bld) [#/Vol] K/uL NINF - 0.08 K/uL [facility] Immature granulocytes/100 WBC (Bld) 0.3 % [facility] Interpretation and review of laboratory results Abnormal [facility] Lymphocytes (Bld) [#/Vol] 0.89 10*3/uL Low 1.16 - 3.51 K/uL [facility] Lymphocytes/100 WBC (Bld) 26.0 % [facility] MCH (RBC) [Entitic mass] 29.5 pg 25.9 - 33.9 pg [facility] MCHC (RBC) [Mass/Vol] 32.4 g/dL 31.4 - 35.9 g/dL [facility] MCV (RBC) [Entitic vol] 90.9 fL 79.6 - 97.7 fL [facility] Monocytes (Bld) [#/Vol] 0.31 10*3/uL 0.22 - 0.87 K/uL [facility] Monocytes/100 WBC (Bld) 9.1 % [facility] Neutrophils (Bld) [#/Vol] 2.13 10*3/uL 1.64 - 7.28 K/uL [facility] Nucleated RBC/100 WBC (Bld) [Ratio] 0.0 % [facility] Platelet mean volume (Bld) [Entitic vol] 8.5 fL 8.5 - 12.2 fL [facility] Platelets (Bld) [#/Vol] 387 10*3/uL 150 - 393 K/uL [facility] RBC (Bld) [#/Vol] 4.38 10*6/uL [facility] Segmented neutrophils/100 WBC (Bld) 62.2 % [facility] WBC (Bld) [#/Vol] 3.42 10*3/uL Low 3.99 - 11.19 K/uL [facility] Baso Auto < Normal 0.00-0.15 [facility] Comment on above: Performed By: #### L [id number] ####[facility] (DEFAULT)[address] [place] [address] Basophils/100 WBC (Bld) 0.6 % Normal [facility] Comment on above: Performed By: #### L [id number] ####[facility] (DEFAULT)[address] [place] [address] DIFF STATUS Electronic Differential Normal [facility] Comment on above: Performed By: #### L [id number] ####[facility] (DEFAULT)[address] [place] [address] Eosinophils (Bld) [#/Vol] 0.06 10*3/uL Normal 0.00-0.42 [facility] Comment on above: Performed By: #### L [id number] ####[facility] (DEFAULT)[address] [place] [address] Eosinophils/100 WBC (Bld) 1.8 % Normal [facility] Comment on above: Performed By: #### L [id number] ####[facility] (DEFAULT)[address] [place] [address] Hematocrit (Bld) [Volume fraction] 39.8 % Normal 34.9-44.3 [facility] Comment on above: Performed By: #### L [id number] ####[facility] (DEFAULT)[address] [place] [address] Hemoglobin (Bld) [Mass/Vol] 12.9 g/dL Normal 11.4-15.2 [facility] Comment on above: Performed By: #### L [id number] ####[facility] (DEFAULT)[address] [place] [address] Immature Grans % 0.3 % Normal [facility] Comment on above: Performed By: #### L [id number] ####[facility] (DEFAULT)[address] [place] [address] Immature Grans Absolute < Normal <=0.08 [facility] Comment on above: Performed By: #### L [id number] ####[facility] (DEFAULT)[address] [place] [address] Lymphocytes (Bld) [#/Vol] 0.89 10*3/uL Low 1.16-3.51 [facility] Comment on above: Performed By: #### L [id number] ####[facility] (DEFAULT)[address] [place] [address] Lymphocytes/100 WBC (Bld) 26.0 % Normal [facility] Comment on above: Performed By: #### L [id number] ####[facility] (DEFAULT)[address] [place] [address] MCV (RBC) [Entitic vol] 90.9 fL Normal 79.6-97.7 [facility] Comment on above: Performed By: #### L [id number] ####[facility] (DEFAULT)[address] [place] [address] Mean Cell Hgb 29.5 pg Normal 25.9-33.9 [facility] Comment on above: Performed By: #### L [id number] ####[facility] (DEFAULT)[address] [place] [address] Mean Cell Hgb Conc 32.4 g/dL Normal 31.4-35.9 [facility] Comment on above: Performed By: #### L [id number] ####[facility] (DEFAULT)[address] [place] [address] Monocytes (Bld) [#/Vol] 0.31 10*3/uL Normal 0.22-0.87 [facility] Comment on above: Performed By: #### L [id number] ####[facility] (DEFAULT)[address] [place] [address] Monocytes/100 WBC (Bld) 9.1 % Normal [facility] Comment on above: Performed By: #### L [id number] ####[facility] (DEFAULT)[address] [place] [address] Nucleated RBC 0.0 /100 WBC Normal <=0.2 [facility] Comment on above: Performed By: #### L [id number] ####[facility] (DEFAULT)[address] [place] [address] Platelet mean volume (Bld) [Entitic vol] 8.5 fL Normal 8.5-12.2 [facility] Comment on above: Performed By: #### L [id number] ####[facility] (DEFAULT)[address] [place] [address] Platelets (Bld) [#/Vol] 387 10*3/uL Normal 150-393 [facility] Comment on above: Performed By: #### L [id number] ####[facility] (DEFAULT)[address] [place] [address] RBC (Bld) [#/Vol] 4.38 10*6/uL Normal 3.91-5.04 [facility] Comment on above: Performed By: #### L [id number] ####[facility] (DEFAULT)[address] [place] [address] RBC Distribution 15.2 % High 10.8-14.9 [facility] Comment on above: Performed By: #### L [id number] ####[facility] (DEFAULT)[address] [place] [address] Segs + Bands Auto 62.2 % Normal [facility] Comment on above: Performed By: #### L [id number] ####[facility] (DEFAULT)[address] [place] [address] Segs + Bands,Absolute Auto 2.13 K/uL Normal 1.64-7.28 [facility] Comment on above: Performed By: #### L [id number] ####[facility] (DEFAULT)[address] [place] [address] WBC (Bld) [#/Vol] 3.42 10*3/uL Low 3.99-11.19 [facility] Comment on above: Performed By: #### L [id number] ####[facility] (DEFAULT)[address] [place] [address] COMPREHENSIVE METABOLIC PANE Atul 05-12-2024 Albumin [Mass/Vol] 3.8 g/dL 3.5 - 5.0 g/dL [facility] ALP [Catalytic activity/Vol] 114 U/L 32 - 126 U/L [facility] ALT [Catalytic activity/Vol] 17 U/L 9 - 48 U/L [facility] Anion gap [Moles/Vol] 14 mmol/L 7 - 17 mmol/L [facility] AST [Catalytic activity/Vol] 33 U/L 10 - 39 U/L [facility] Bilirubin [Mass/Vol] 0.3 mg/dL NINF - 1.5 mg/dL [facility] Calcium [Mass/Vol] 11.9 mg/dL High 8.6 - 10. 5 mg/dL [facility] Chloride [Moles/Vol] 97 mmol/L Low 98 - 10 8 mmol/L [facility] CO2 [Moles/Vol] 25 mmol/L 21 - 31 mmol/L [facility] Creatinine [Mass/Vol] 0.74 mg/dL 0.50 - 1.20 mg/dL [facility] eGFR, CKD-EPI, Female - PINF [facility] Comment on above: Reported eGFR is bas ed on the CKD-EPI 2020 equation using creatinine, age, and sex. Glucose [Mass/Vol] 88 mg/dL 70 - 99 mg/dL [facility] Interpretation and review of laboratory results Abnormal [facility] Osmolality Calc [Osmolality] 281 [facility] Potassium [Moles/Vol] 3.9 mmol/L 3.5 - 5.0 mmol/L [facility] Protein [Mass/Vol] 7.3 g/dL 6.4 - 8.3 g/dL [facility] Sodium [Moles/Vol] 132 mmol/L Low 135 - 145 mmol/L [facility] Urea nitrogen [Mass/Vol] 23 mg/dL 7 - 25 mg/dL [facility] Urea nitrogen/Creatinine [Mass ratio] 31 mg/mg [facility] Albumin [Mass/Vol] 3.8 g/dL Normal 3.5-5.0 [facility] Comment on above: Performed By: #### C DOMO MCCOY IPB ####[facility] (DEFAULT)[address] [place] [address] ALP [Catalytic activity/Vol] 114 U/L Normal 32-126 [facility] Comment on above: Performed By: #### C NADINE MGJitendra IPB ####[facility] (DEFAULT)[address] [place] [address] ALT [Catalytic activity/Vol] 17 U/L Normal 9-48 [facility] Comment on above: Performed By: #### C MPN MGO, IPB ####[facility] (DEFAULT)[address] [place] [address] Anion gap [Moles/Vol] 14 mmol/L Normal 7-17 [facility] Comment on above: Performed By: #### C MPN MGO, IPB ####[facility] (DEFAULT)[address] [place] [address] AST [Catalytic activity/Vol] 33 U/L Normal 10-39 [facility] Comment on above: Performed By: #### C NADINE MGO, IPB ####[facility] (DEFAULT)[address] [place] [address] Bilirubin [Mass/Vol] 0.3 mg/dL Normal <1.5 [facility] Comment on above: Performed By: #### C MPN, MGO, IPB ####[facility] (DEFAULT)[address] [place] [address] Calcium [Mass/Vol] 11.9 mg/dL High 8.6-10.5 [facility] Comment on above: Performed By: #### C MPN, MGO, IPB ####[facility] (DEFAULT)[address] [place] [address] Chloride [Moles/Vol] 97 mmol/L Low 98-108 [facility] Comment on above: Performed By: #### C MPN, MGO, IPB ####[facility] (DEFAULT)[address] [place] [address] CO2 [Moles/Vol] 25 mmol/L Normal 21-31 [facility] Comment on above: Performed By: #### C MPN, MGO, IPB ####[facility] (DEFAULT)[address] [place] [address] Creatinine [Mass/Vol] 0.74 mg/dL Normal 0.50-1.20 [facility] Comment on above: Performed By: #### C MPN, MGO, IPB ####[facility] (DEFAULT)[address] [place] [address] eGFR, CKD-EPI, Female > Normal >=60 [facility] Comment on above: Result Comment: Repo rted eGFR is based on the CKD-EPI 2020 equation using creatinine, age, and sex. Performed By: #### C MPN, MGO, IPB ####[facility] (DEFAULT)[address] [place] [address] Glucose [Mass/Vol] 88 mg/dL Normal 70-99 [facility] Comment on above: Performed By: #### C MPN, MGO, IPB ####[facility] (DEFAULT)[address] [place] [address] Osmolality [Osmolality] 281 mosm/kg Normal 278-305 [facility] Comment on above: Performed By: #### C MPN, MGO, IPB ####[facility] (DEFAULT)[address] [place] [address] Potassium [Moles/Vol] 3.9 mmol/L Normal 3.5-5.0 [facility] Comment on above: Performed By: #### C MPN, MGO, IPB ####[facility] (DEFAULT)[address] [place] [address] Protein [Mass/Vol] 7.3 g/dL Normal 6.4-8.3 [facility] Comment on above: Performed By: #### C MPN, MGO, IPB ####[facility] (DEFAULT)[address] [place] [address] Sodium [Moles/Vol] 132 mmol/L Low 135-145 [facility] Comment on above: Performed By: #### C MPN, MGO, IPB ####[facility] (DEFAULT)[address] [place] [address] Urea nitrogen [Mass/Vol] 23 mg/dL Normal 7-25 [facility] Comment on above: Performed By: #### C MPN, MGO, IPB ####[facility] (DEFAULT)[address] [place] [address] Urea nitrogen/Creatinine [Mass ratio] 31 mg/mg Normal [facility] Comment on above: Performed By: #### C MPN, MGO, IPB ####[facility] (DEFAULT)[address] [place] [address] MAGNESIUMon 05-12-2024 Magnesium [Mass/Vol] 1.9 mg/dL 1.6 - 2 .6 mg/dL [facility] Magnesium [Mass/Vol] 1.9 mg/dL Normal 1.6-2.6 [facility] Comment on above: Performed By: #### C MPN, MGO, IPB ####[facility] (DEFAULT)[address] [place] [address] No Panel Informationon 05-12 Interpretation and review of laboratory results Normal [facility] PHOSPHATE, INORGANICon 05-12 Phosphate [Mass/Vol] 4.0 mg/dL 2.2 - 4 .6 mg/dL [facility] Phosphorous 4.0 mg/dL Normal 2.2-4.6 [facility] Comment on above: Performed By: #### C MPN, MGO, IPB ####[facility] (DEFAULT)[address] [place] [address] ECGOrdered By: David muñoz 05-10-2024 [facility] Work Phone: CBC AND ELECTRONIC DIFFon Basophils (Bld) [#/Vol] K/uL 0.00 - 0.15 K/uL [facility] Basophils/100 WBC (Bld) 0.3 % [facility] Differential cell count method Nom (Bld) Electronic Differential [facility] Eosinophils (Bld) [#/Vol] 0.10 10*3/uL 0.00 - 0.42 K/uL [facility] Eosinophils/100 WBC (Bld) 2.6 % [facility] Erythrocyte distribution width (RBC) [Ratio] 14.8 % 10.8 - 14.9 % [facility] Hematocrit (Bld) [Volume fraction] 41.1 % 34.9 - 44.3 % [facility] Hemoglobin (Bld) [Mass/Vol] 13.1 g/dL 11.4 - 15.2 g/dL [facility] Immature granulocytes (Bld) [#/Vol] K/uL NINF - 0.08 K/uL [facility] Immature granulocytes/100 WBC (Bld) 0.5 % [facility] Interpretation and review of laboratory results Abnormal [facility] Lymphocytes (Bld) [#/Vol] 1.08 10*3/uL Low 1.16 - 3.51 K/uL [facility] Lymphocytes/100 WBC (Bld) 28.4 % [facility] MCH (RBC) [Entitic mass] 29.4 pg 25.9 - 33.9 pg [facility] MCHC (RBC) [Mass/Vol] 31.9 g/dL 31.4 - 35.9 g/dL [facility] MCV (RBC) [Entitic vol] 92.2 fL 79.6 - 97.7 fL [facility] Monocytes (Bld) [#/Vol] 0.14 10*3/uL Low 0.22 - 0.87 K/uL [facility] Monocytes/100 WBC (Bld) 3.7 % [facility] Neutrophils (Bld) [#/Vol] 2.45 10*3/uL 1.64 - 7.28 K/uL [facility] Nucleated RBC/100 WBC (Bld) [Ratio] 0.0 % [facility] Platelet mean volume (Bld) [Entitic vol] 8.5 fL 8.5 - 12.2 fL [facility] Platelets (Bld) [#/Vol] 354 10*3/uL 150 - 393 K/uL [facility] RBC (Bld) [#/Vol] 4.46 10*6/uL [facility] Segmented neutrophils/100 WBC (Bld) 64.5 % [facility] WBC (Bld) [#/Vol] 3.80 10*3/uL Low 3.99 - 11.19 K/uL [facility] Abs Baso Auto < Normal 0.00-0.15 [facility] Comment on above: Performed By: #### L [id number] ####[facility] (DEFAULT)[address] [place] [address] Basophils/100 WBC (Bld) 0.3 % Normal [facility] Comment on above: Performed By: #### L [id number] ####[facility] (DEFAULT)[address] [place] [address] DIFF STATUS Electronic Differential Normal [facility] Comment on above: Performed By: #### L [id number] ####[facility] (DEFAULT)[address] [place] [address] Eosinophils (Bld) [#/Vol] 0.10 10*3/uL Normal 0.00-0.42 [facility] Comment on above: Performed By: #### L [id number] ####[facility] (DEFAULT)[address] [place] [address] Eosinophils/100 WBC (Bld) 2.6 % Normal [facility] Comment on above: Performed By: #### L [id number] ####[facility] (DEFAULT)[address] [place] [address] Hematocrit (Bld) [Volume fraction] 41.1 % Normal 34.9-44.3 [facility] Comment on above: Performed By: #### L [id number] ####[facility] (DEFAULT)[address] [place] [address] Hemoglobin (Bld) [Mass/Vol] 13.1 g/dL Normal 11.4-15.2 [facility] Comment on above: Performed By: #### L [id number] ####[facility] (DEFAULT)[address] [place] [address] Immature Grans % 0.5 % Normal [facility] Comment on above: Performed By: #### L [id number] ####[facility] (DEFAULT)[address] [place] [address] Immature Grans Absolute < Normal <=0.08 [facility] Comment on above: Performed By: #### L [id number] ####[facility] (DEFAULT)[address] [place] [address] Lymphocytes (Bld) [#/Vol] 1.08 10*3/uL Low 1.16-3.51 [facility] Comment on above: Performed By: #### L [id number] ####[facility] (DEFAULT)[address] [place] [address] Lymphocytes/100 WBC (Bld) 28.4 % Normal [facility] Comment on above: Performed By: #### L [id number] ####[facility] (DEFAULT)[address] [place] [address] MCV (RBC) [Entitic vol] 92.2 fL Normal 79.6-97.7 [facility] Comment on above: Performed By: #### L [id number] ####[facility] (DEFAULT)[address] [place] [address] Mean Cell Hgb 29.4 pg Normal 25.9-33.9 [facility] Comment on above: Performed By: #### L [id number] ####[facility] (DEFAULT)[address] [place] [address] Mean Cell Hgb Conc 31.9 g/dL Normal 31.4-35.9 [facility] Comment on above: Performed By: #### L [id number] ####[facility] (DEFAULT)[address] [place] [address] Monocytes (Bld) [#/Vol] 0.14 10*3/uL Low 0.22-0.87 [facility] Comment on above: Performed By: #### L [id number] ####[facility] (DEFAULT)[address] [place] [address] Monocytes/100 WBC (Bld) 3.7 % Normal [facility] Comment on above: Performed By: #### L [id number] ####[facility] (DEFAULT)[address] [place] [address] Nucleated RBC 0.0 /100 WBC Normal <=0.2 [facility] Comment on above: Performed By: #### L [id number] ####[facility] (DEFAULT)[address] [place] [address] Platelet mean volume (Bld) [Entitic vol] 8.5 fL Normal 8.5-12.2 [facility] Comment on above: Performed By: #### L [id number] ####[facility] (DEFAULT)[address] [place] [address] Platelets (Bld) [#/Vol] 354 10*3/uL Normal 150-393 [facility] Comment on above: Performed By: #### L [id number] ####[facility] (DEFAULT)[address] [place] [address] RBC (Bld) [#/Vol] 4.46 10*6/uL Normal 3.91-5.04 [facility] Comment on above: Performed By: #### L [id number] ####[facility] (DEFAULT)[address] [place] [address] RBC Distribution 14.8 % Normal 10.8-14.9 [facility] Comment on above: Performed By: #### L [id number] ####[facility] (DEFAULT)[address] [place] [address] Segs + Bands Auto 64.5 % Normal [facility] Comment on above: Performed By: #### L [id number] ####[facility] (DEFAULT)[address] [place] [address] Segs + Bands,Absolute Auto 2.45 K/uL Normal 1.64-7.28 [facility] Comment on above: Performed By: #### L [id number] ####[facility] (DEFAULT)[address] [place] [address] WBC (Bld) [#/Vol] 3.80 10*3/uL Low 3.99-11.19 [facility] Comment on above: Performed By: #### L [id number] ####[facility] (DEFAULT)[address] [place] [address] COMPREHENSIVE METABOLIC PANE [place] 04-28-2024 Albumin [Mass/Vol] 4.0 g/dL 3.5 - 5.0 g/dL [facility] ALP [Catalytic activity/Vol] 119 U/L 32 - 126 U/L [facility] ALT [Catalytic activity/Vol] 10 U/L 9 - 48 U/L [facility] Anion gap [Moles/Vol] 14 mmol/L 7 - 17 mmol/L [facility] AST [Catalytic activity/Vol] 16 U/L 10 - 39 U/L [facility] Bilirubin [Mass/Vol] 0.3 mg/dL NINF - 1.5 mg/dL [facility] Calcium [Mass/Vol] 10.9 mg/dL High 8.6 - 10. 5 mg/dL [facility] Chloride [Moles/Vol] 101 mmol/L 98 - 10 8 mmol/L [facility] CO2 [Moles/Vol] 24 mmol/L 21 - 31 mmol/L [facility] Creatinine [Mass/Vol] 0.70 mg/dL 0.50 - 1.20 mg/dL [facility] eGFR, CKD-EPI, Female - PINF [facility] Comment on above: Reported eGFR is bas ed on the CKD-EPI 2020 equation using creatinine, age, and sex. Glucose [Mass/Vol] 99 mg/dL 70 - 99 mg/dL [facility] Interpretation and review of laboratory results Abnormal [facility] Osmolality Calc [Osmolality] 286 [facility] Potassium [Moles/Vol] 4.2 mmol/L 3.5 - 5.0 mmol/L [facility] Protein [Mass/Vol] 7.1 g/dL 6.4 - 8.3 g/dL [facility] Sodium [Moles/Vol] 135 mmol/L 135 - 145 mmol/L [facility] Urea nitrogen [Mass/Vol] 18 mg/dL 7 - 25 mg/dL [facility] Urea nitrogen/Creatinine [Mass ratio] 26 mg/mg [facility] Albumin [Mass/Vol] 4.0 g/dL Normal 3.5-5.0 [facility] Comment on above: Performed By: #### M MICHELLE IPB, CMPN ####[facility] (DEFAULT)[address] [place] [address] ALP [Catalytic activity/Vol] 119 U/L Normal 32-126 [facility] Comment on above: Performed By: #### M MICHELLE IPB, CMPN ####[facility] (DEFAULT)[address] [place] [address] ALT [Catalytic activity/Vol] 10 U/L Normal 9-48 [facility] Comment on above: Performed By: #### M GO IPB, CMPN ####[facility] (DEFAULT)[address] [place] [address] Anion gap [Moles/Vol] 14 mmol/L Normal 7-17 [facility] Comment on above: Performed By: #### M GO IPB, CMPN ####[facility] (DEFAULT)[address] [place] [address] AST [Catalytic activity/Vol] 16 U/L Normal 10-39 [facility] Comment on above: Performed By: #### M GO IPB, CMPN ####[facility] (DEFAULT)[address] [place] [address] Bilirubin [Mass/Vol] 0.3 mg/dL Normal <1.5 [facility] Comment on above: Performed By: #### M GO IPB, CMPN ####[facility] (DEFAULT)[address] [place] [address] Calcium [Mass/Vol] 10.9 mg/dL High 8.6-10.5 [facility] Comment on above: Performed By: #### M MARIA DEL CARMEN MARTINEZ CMPN ####[facility] (DEFAULT)[address] [place] [address] Chloride [Moles/Vol] 101 mmol/L Normal 98-108 [facility] Comment on above: Performed By: #### MARIA DEL CARMEN HERRERA CMPN ####[facility] (DEFAULT)[address] [place] [address] CO2 [Moles/Vol] 24 mmol/L Normal 21-31 [facility] Comment on above: Performed By: #### MARIA DEL CARMEN HERRERA CMPN ####[facility] (DEFAULT)[address] [place] [address] Creatinine [Mass/Vol] 0.70 mg/dL Normal 0.50-1.20 [facility] Comment on above: Performed By: #### MARIA DEL CARMEN HERRERA CMPN ####[facility] (DEFAULT)[address] [place] [address] eGFR, CKD-EPI, Female > Normal >=60 [facility] Comment on above: Result Comment: Repo rted eGFR is based on the CKD-EPI 2020 equation using creatinine, age, and sex. Performed By: #### MARIA DEL CARMEN HERRERA CMPN ####[facility] (DEFAULT)[address] [place] [address] Glucose [Mass/Vol] 99 mg/dL Normal 70-99 [facility] Comment on above: Performed By: #### MARIA DEL CARMEN HERRERA CMPN ####[facility] (DEFAULT)[address] [place] [address] Osmolality [Osmolality] 286 mosm/kg Normal 278-305 [facility] Comment on above: Performed By: #### MARIA DEL CARMEN HERRERA CMPN ####[facility] (DEFAULT)[address] [place] [address] Potassium [Moles/Vol] 4.2 mmol/L Normal 3.5-5.0 [facility] Comment on above: Performed By: #### MARIA DEL CARMEN HERRERA, CMPN ####[facility] (DEFAULT)[address] [place] [address] Protein [Mass/Vol] 7.1 g/dL Normal 6.4-8.3 [facility] Comment on above: Performed By: #### MARIA DEL CARMEN HERRERA, CMPN ####[facility] (DEFAULT)[address] [place] [address] Sodium [Moles/Vol] 135 mmol/L Normal 135-145 [facility] Comment on above: Performed By: #### MARIA DEL CARMEN HERRERA, CMPN ####[facility] (DEFAULT)[address] [place] [address] Urea nitrogen [Mass/Vol] 18 mg/dL Normal 7-25 [facility] Comment on above: Performed By: #### MARIA DEL CARMEN HERRERA, CMPN ####[facility] (DEFAULT)[address] [place] [address] Urea nitrogen/Creatinine [Mass ratio] 26 mg/mg Normal [facility] Comment on above: Performed By: #### MARIA DEL CARMEN HERRERA, CMPN ####[facility] (DEFAULT)[address] [place] [address] MAGNESIUMon 04-28-2024 Magnesium [Mass/Vol] 2.1 mg/dL 1.6 - 2 .6 mg/dL [facility] Magnesium [Mass/Vol] 2.1 mg/dL Normal 1.6-2.6 [facility] Comment on above: Performed By: #### MARIA DEL CARMEN HERRERA, CMPN ####[facility] (DEFAULT)[address] [place] [address] No Panel Informationon 04-28 Interpretation and review of laboratory results Normal [facility] PHOSPHATE, INORGANICon 04-28 Phosphate [Mass/Vol] 4.6 mg/dL 2.2 - 4 .6 mg/dL [facility] Phosphorous 4.6 mg/dL Normal 2.2-4.6 [facility] Comment on above: Performed By: #### M GO, IPB, CMPN ####[facility] (DEFAULT)[address] [place] [address] XR CHEST PA AND LATERAL 2 EWSon 04-28-2024 XR CHEST PA AND LATERAL 2 VIEWS Normal [facility] XR Chest PA and Lateralon IMPRESSION: Trace right pleural effusion. Right Pleurx catheter in place. OLOGY EXAM: XR CHEST PA AN D LATERAL 2 VIEWS, 04/28/2024 16:16 PM COMPARISON: 04/14/2024 CLINICAL INDICATIONS: Dyspnea, cough. 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 Lungs: Clear, without mass, interstitial disease, or consolidation. Pleural Spaces: Trace right pleural effusion. No pneumothorax. Mediastinum and Luis Angel: Normal Cardiac silhouette and great vessels: Normal heart size. Unremarkable aorta. Chest Wall: Normal RADIOLOGY Han Piña MD - 04/28/2024 EXAM: XR CHEST PA AND LATERAL 2 VIEWS, 04/28/2024 16:16 PM COMPARISON: 04/14/2024 CLINICAL INDICATIONS: Dyspnea, cough. 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 Lungs: Clear, without mass, interstitial disease, or consolidation. Pleural Spaces: Trace right pleural effusion. No pneumothorax. Mediastinum and Luis Angel: Normal Cardiac silhouette and great vessels: Normal heart size. Unremarkable aorta. Chest Wall: Normal IMPRESSION IMPRESSION: Trace right pleural effusion. Right Pleurx catheter in place. [facility] Radiology Study observation (narrative) [facility] XR Chest PA and LateralOrder ed By: Han Piña on 04-28-2024 [facility] Work Phone: Office Visiton 04-21-2024 Follow-up visit [id number] Jesus 1960 F Date Provider Department Center 04/21/2024 [facility] Family History Problem Relation Age of Onset Heart failure Mother Atrial fibrillation Mother Coronary artery disease Father Other Father Family Status - Relation Status Age at Mother Father Level of Service:[address] [place] OFFICE/OUTPATIENT ESTABLISHED LOW MDM 20 MIN Normal [facility] XR RIBS RIGHT 2 VIEWSon 04-02 XR RIBS RIGHT 2 VIEWS Normal [place] [facility] CBC AND ELECTRONIC DIFFon Basophils (Bld) [#/Vol] K/uL 0.00 - 0.15 K/uL [facility] Basophils/100 WBC (Bld) 0.5 % [facility] Differential cell count method Nom (Bld) Electronic Differential [facility] Eosinophils (Bld) [#/Vol] 0.08 10*3/uL 0.00 - 0.42 K/uL [facility] Eosinophils/100 WBC (Bld) 1.5 % [facility] Erythrocyte distribution width (RBC) [Ratio] 15.5 % High 10.8 - 14.9 % [facility] Hematocrit (Bld) [Volume fraction] 42.6 % 34.9 - 44.3 % [facility] Hemoglobin (Bld) [Mass/Vol] 13.5 g/dL 11.4 - 15.2 g/dL [facility] Immature granulocytes (Bld) [#/Vol] K/uL NINF - 0.08 K/uL [facility] Immature granulocytes/100 WBC (Bld) 0.5 % [facility] Interpretation and review of laboratory results Abnormal [facility] Lymphocytes (Bld) [#/Vol] 1.26 10*3/uL 1.16 - 3.51 K/uL [facility] Lymphocytes/100 WBC (Bld) 23.0 % [facility] MCH (RBC) [Entitic mass] 29.3 pg 25.9 - 33.9 pg [facility] MCHC (RBC) [Mass/Vol] 31.7 g/dL 31.4 - 35.9 g/dL [facility] MCV (RBC) [Entitic vol] 92.4 fL 79.6 - 97.7 fL [facility] Monocytes (Bld) [#/Vol] 0.33 10*3/uL 0.22 - 0.87 K/uL [facility] Monocytes/100 WBC (Bld) 6.0 % [facility] Neutrophils (Bld) [#/Vol] 3.74 10*3/uL 1.64 - 7.28 K/uL [facility] Nucleated RBC/100 WBC (Bld) [Ratio] 0.0 % [facility] Platelet mean volume (Bld) [Entitic vol] 8.6 fL 8.5 - 12.2 fL [facility] Platelets (Bld) [#/Vol] 426 10*3/uL High 150 - 393 K/uL [facility] RBC (Bld) [#/Vol] 4.61 10*6/uL [facility] Segmented neutrophils/100 WBC (Bld) 68.5 % [facility] WBC (Bld) [#/Vol] 5.47 10*3/uL 3.99 - 11.19 K/uL [facility] Abs Baso Auto < Normal 0.00-0.15 [facility] Comment on above: Performed By: #### L [id number] ####[facility] (DEFAULT)[address] [place] [address] Basophils/100 WBC (Bld) 0.5 % Normal [facility] Comment on above: Performed By: #### L [id number] ####[facility] (DEFAULT)[address] [place] [address] DIFF STATUS Electronic Differential Normal [facility] Comment on above: Performed By: #### L [id number] ####[facility] (DEFAULT)[address] [place] [address] Eosinophils (Bld) [#/Vol] 0.08 10*3/uL Normal 0.00-0.42 [facility] Comment on above: Performed By: #### L [id number] ####[facility] (DEFAULT)[address] [place] [address] Eosinophils/100 WBC (Bld) 1.5 % Normal [facility] Comment on above: Performed By: #### L [id number] ####[facility] (DEFAULT)[address] [place] [address] Hematocrit (Bld) [Volume fraction] 42.6 % Normal 34.9-44.3 [facility] Comment on above: Performed By: #### L [id number] ####[facility] (DEFAULT)[address] [place] [address] Hemoglobin (Bld) [Mass/Vol] 13.5 g/dL Normal 11.4-15.2 [facility] Comment on above: Performed By: #### L [id number] ####[facility] (DEFAULT)[address] [place] [address] Immature Grans % 0.5 % Normal [facility] Comment on above: Performed By: #### L [id number] ####[facility] (DEFAULT)[address] [place] [address] Immature Grans Absolute < Normal <=0.08 [facility] Comment on above: Performed By: #### L [id number] ####[facility] (DEFAULT)[address] [place] [address] Lymphocytes (Bld) [#/Vol] 1.26 10*3/uL Normal 1.16-3.51 [facility] Comment on above: Performed By: #### L [id number] ####[facility] (DEFAULT)[address] [place] [address] Lymphocytes/100 WBC (Bld) 23.0 % Normal [facility] Comment on above: Performed By: #### L [id number] ####[facility] (DEFAULT)[address] [place] [address] MCV (RBC) [Entitic vol] 92.4 fL Normal 79.6-97.7 [facility] Comment on above: Performed By: #### L [id number] ####[facility] (DEFAULT)[address] [place] [address] Mean Cell Hgb 29.3 pg Normal 25.9-33.9 [facility] Comment on above: Performed By: #### L [id number] ####[facility] (DEFAULT)[address] [place] [address] Mean Cell Hgb Conc 31.7 g/dL Normal 31.4-35.9 [facility] Comment on above: Performed By: #### L [id number] ####[facility] (DEFAULT)[address] [place] [address] Monocytes (Bld) [#/Vol] 0.33 10*3/uL Normal 0.22-0.87 [facility] Comment on above: Performed By: #### L [id number] ####[facility] (DEFAULT)[address] [place] [address] Monocytes/100 WBC (Bld) 6.0 % Normal [facility] Comment on above: Performed By: #### L [id number] ####[facility] (DEFAULT)[address] [place] [address] Nucleated RBC 0.0 /100 WBC Normal <=0.2 [facility] Comment on above: Performed By: #### L [id number] ####[facility] (DEFAULT)[address] [place] [address] Platelet mean volume (Bld) [Entitic vol] 8.6 fL Normal 8.5-12.2 [facility] Comment on above: Performed By: #### L [id number] ####[facility] (DEFAULT)[address] [place] [address] Platelets (Bld) [#/Vol] 426 10*3/uL High 150-393 [facility] Comment on above: Performed By: #### L [id number] ####[facility] (DEFAULT)[address] [place] [address] RBC (Bld) [#/Vol] 4.61 10*6/uL Normal 3.91-5.04 [facility] Comment on above: Performed By: #### L [id number] ####[facility] (DEFAULT)[address] [place] [address] RBC Distribution 15.5 % High 10.8-14.9 [facility] Comment on above: Performed By: #### L [id number] ####[facility] (DEFAULT)[address] [place] [address] Segs + Bands Auto 68.5 % Normal [facility] Comment on above: Performed By: #### L [id number] ####[facility] (DEFAULT)[address] [place] [address] Segs + Bands,Absolute Auto 3.74 K/uL Normal 1.64-7.28 [facility] Comment on above: Performed By: #### L [id number] ####[facility] (DEFAULT)[address] [place] [address] WBC (Bld) [#/Vol] 5.47 10*3/uL Normal 3.99-11.19 [facility] Comment on above: Performed By: #### L [id number] ####[facility] (DEFAULT)[address] [place] [address] COMPREHENSIVE METABOLIC PANE [place] 04-14-2024 Albumin [Mass/Vol] 4.1 g/dL 3.5 - 5.0 g/dL [facility] ALP [Catalytic activity/Vol] 133 U/L High 32 - 126 U/L [facility] ALT [Catalytic activity/Vol] 18 U/L 9 - 48 U/L [facility] Anion gap [Moles/Vol] 13 mmol/L 7 - 17 mmol/L [facility] AST [Catalytic activity/Vol] 22 U/L 10 - 39 U/L [facility] Bilirubin [Mass/Vol] 0.4 mg/dL NINF - 1.5 mg/dL [facility] Calcium [Mass/Vol] 10.4 mg/dL 8.6 - 10. 5 mg/dL [facility] Chloride [Moles/Vol] 103 mmol/L 98 - 10 8 mmol/L [facility] CO2 [Moles/Vol] 26 mmol/L 21 - 31 mmol/L [facility] Creatinine [Mass/Vol] 0.46 mg/dL Low 0.50 - 1.20 mg/dL [facility] eGFR, CKD-EPI, Female - PINF [facility] Comment on above: Reported eGFR is bas ed on the CKD-EPI 2020 equation using creatinine, age, and sex. Glucose [Mass/Vol] 108 mg/dL High 70 - 99 mg/dL [facility] Interpretation and review of laboratory results Abnormal [facility] Osmolality Calc [Osmolality] 289 [facility] Potassium [Moles/Vol] 3.9 mmol/L 3.5 - 5.0 mmol/L [facility] Protein [Mass/Vol] 7.2 g/dL 6.4 - 8.3 g/dL [facility] Sodium [Moles/Vol] 138 mmol/L 135 - 145 mmol/L [facility] Urea nitrogen [Mass/Vol] 13 mg/dL 7 - 25 mg/dL [facility] Urea nitrogen/Creatinine [Mass ratio] 28 mg/mg [facility] Albumin [Mass/Vol] 4.1 g/dL Normal 3.5-5.0 [facility] Comment on above: Performed By: #### C MPN, IPB, MGO ####[facility] (DEFAULT)[address] [place] [address] ALP [Catalytic activity/Vol] 133 U/L High 32-126 [facility] Comment on above: Performed By: #### C MPN, IPB, MGO ####[facility] (DEFAULT)[address] [place] [address] ALT [Catalytic activity/Vol] 18 U/L Normal 9-48 [facility] Comment on above: Performed By: #### C MPN, IPB, MGO ####[facility] (DEFAULT)[address] [place] [address] Anion gap [Moles/Vol] 13 mmol/L Normal 7-17 [facility] Comment on above: Performed By: #### C MPN, IPB, MGO ####[facility] (DEFAULT)[address] [place] [address] AST [Catalytic activity/Vol] 22 U/L Normal 10-39 [facility] Comment on above: Performed By: #### C MPN, IPB, MGO ####[facility] (DEFAULT)[address] [place] [address] Bilirubin [Mass/Vol] 0.4 mg/dL Normal <1.5 [facility] Comment on above: Performed By: #### C MPN, IPB, MGO ####[facility] (DEFAULT)[address] [place] [address] Calcium [Mass/Vol] 10.4 mg/dL Normal 8.6-10.5 [facility] Comment on above: Performed By: #### C MPN, IPB, MGO ####[facility] (DEFAULT)[address] [place] [address] Chloride [Moles/Vol] 103 mmol/L Normal 98-108 [facility] Comment on above: Performed By: #### C MPN, IPB, MGO ####[facility] (DEFAULT)[address] [place] [address] CO2 [Moles/Vol] 26 mmol/L Normal 21-31 [facility] Comment on above: Performed By: #### C MPN, IPB, MGO ####[facility] (DEFAULT)[address] [place] [address] Creatinine [Mass/Vol] 0.46 mg/dL Low 0.50-1.20 [facility] Comment on above: Performed By: #### C MPN, IPB, MGO ####[facility] (DEFAULT)[address] [place] [address] eGFR, CKD-EPI, Female > Normal >=60 [facility] Comment on above: Result Comment: Repo rted eGFR is based on the CKD-EPI 2020 equation using creatinine, age, and sex. Performed By: #### C MPN, IPB, MGO ####[facility] (DEFAULT)[address] [place] [address] Glucose [Mass/Vol] 108 mg/dL High 70-99 [facility] Comment on above: Performed By: #### C MPN, IPB, MGO ####[facility] (DEFAULT)[address] [place] [address] Osmolality [Osmolality] 289 mosm/kg Normal 278-305 [facility] Comment on above: Performed By: #### C MPN, IPB, MGO ####[facility] (DEFAULT)[address] [place] [address] Potassium [Moles/Vol] 3.9 mmol/L Normal 3.5-5.0 [facility] Comment on above: Performed By: #### C MPN, IPB, MGO ####[facility] (DEFAULT)[address] [place] [address] Protein [Mass/Vol] 7.2 g/dL Normal 6.4-8.3 [facility] Comment on above: Performed By: #### C MPN, IPB, MGO ####[facility] (DEFAULT)[address] [place] [address] Sodium [Moles/Vol] 138 mmol/L Normal 135-145 [facility] Comment on above: Performed By: #### C MPN, IPB, MGO ####[facility] (DEFAULT)[address] [place] [address] Urea nitrogen [Mass/Vol] 13 mg/dL Normal 7-25 [facility] Comment on above: Performed By: #### C MPN, IPB, MGO ####[facility] (DEFAULT)[address] [place] [address] Urea nitrogen/Creatinine [Mass ratio] 28 mg/mg Normal [facility] Comment on above: Performed By: #### C MPN, IPB, MGO ####[facility] (DEFAULT)[address] [place] [address] MAGNESIUMon 04-14-2024 Magnesium [Mass/Vol] 2.1 mg/dL 1.6 - 2 .6 mg/dL [facility] Magnesium [Mass/Vol] 2.1 mg/dL Normal 1.6-2.6 [facility] Comment on above: Performed By: #### C MPN, IPB, MGO ####[facility] (DEFAULT)[address] [place] [address] No Panel Informationon 04-14 Interpretation and review of laboratory results Normal [facility] PHOSPHATE, INORGANICon 04-14 Phosphate [Mass/Vol] 4.2 mg/dL 2.2 - 4 .6 mg/dL [facility] Phosphorous 4.2 mg/dL Normal 2.2-4.6 [facility] Comment on above: Performed By: #### C NADINE, IPB, MGO ####[facility] (DEFAULT)[address] [place] [address] XR FEMUR RIGHT 2+ VIEWSon XR FEMUR RIGHT 2+ VIEWS Normal [facility] XR Femur - right Viewson IMPRESSION: Stable proximal femur lesion with prophylactic fixation compared to March 20, 2024. OLOGY EXAM: XR FEMUR RIGHT 2+ VIEWS, 04/14/2024 09:31 AM COMPARISON: Compared to prior study dated March 20, 2024. 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 Soft Tissue: Interval improvement in postsurgical soft tissue swelling around the hip. Bone: Redemonstration of a permeative appearing lytic lesion in the subtrochanteric femur. Prophylactic intramedullary nail fixation of the femur. Hardware is intact and stable. No fracture evident. Joint: The hip joint is grossly intact. RADIOLOGY Tyrone Carlson MD - 04/14/2024 EXAM: XR FEMUR RIGHT 2+ VIEWS, 04/14/2024 09:31 AM COMPARISON: Compared to prior study dated March 20, 2024. 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 Soft Tissue: Interval improvement in postsurgical soft tissue swelling around the hip. Bone: Redemonstration of a permeative appearing lytic lesion in the subtrochanteric femur. Prophylactic intramedullary nail fixation of the femur. Hardware is intact and stable. No fracture evident. Joint: The hip joint is grossly intact. IMPRESSION IMPRESSION: Stable proximal femur lesion with prophylactic fixation compared to March 20, 2024. [facility] Radiology Study observation (narrative) [facility] XR Femur - right ViewsOrdere d By: Tyrone Carlson on 04-14-2024 [facility] Work Phone: XR Ribs - right Viewson 04-02 IMPRESSION: No displaced rib fracture identified. OLOGY EXAM: XR RIBS RIGHT 2 VIEWS, 04/14/2024 15:56 PM COMPARISON: No prior studies available for comparison. 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 Bone: No acute osseous abnormality is identified. No obvious displaced rib fracture. Right pleural effusion with basilar atelectasis. RADIOLOGY Hawk Pichardo MD - 04/14/2024 EXAM: XR RIBS RIGHT 2 VIEWS, 04/14/2024 15:56 PM COMPARISON: No prior studies available for comparison. 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 Bone: No acute osseous abnormality is identified. No obvious displaced rib fracture. Right pleural effusion with basilar atelectasis. IMPRESSION IMPRESSION: No displaced rib fracture identified. [facility] Addendum by Marcio Pichardo MD on 04/19/2024 3:14 PM EST ADDENDUM #1 The relevant clinical history section of the report erroneously lists a history of right breast cancer as this code was associated with the order placed by the clinical service. The appropriate relevant clinical history is left breast cancer. [facility] ORIGINAL REPORT EXAM: XR RIBS RIGHT 2 VIEWS, 04/14/2024 15:56 PM COMPARISON: No prior studies available for comparison. 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 Bone: No acute osseous abnormality is identified. No obvious displaced rib fracture. Right pleural effusion with basilar atelectasis. RADIOLOGY Hawk Pichardo MD - 04/19/2024 ORIGINAL REPORT EXAM: XR RIBS RIGHT 2 VIEWS, 04/14/2024 15:56 PM COMPARISON: No prior studies available for comparison. 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 Bone: No acute osseous abnormality is identified. No obvious displaced rib fracture. Right pleural effusion with basilar atelectasis. IMPRESSION IMPRESSION: No displaced rib fracture identified. [facility] Radiology Study observation (narrative) [facility] XR Ribs - right ViewsOrdered By: Hawk Pichardo on 04-14-2024 [facility] Work Phone: XR SPINE SCOLIOSIS 2-3 VIEWS on 04-09-2024 XR SPINE SCOLIOSIS 2-3 VIEWS Normal [facility] XR Thoracic and lumbar spine Views for scoliosison 04-09-2024 IMPRESSION: No significant scoliotic curvature. There is positive sagittal imbalance and mild right superior pelvic tilt. OLOGY EXAM: XR SPINE SCOLI OSIS 2-3 VIEWS, 04/09/2024 11:54 AM COMPARISON: Lumbar spine radiographs March 17, 2024. 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 Thoracolumbar spine: 12 rib-bearing thoracic vertebral bodies and 5 lumbar vertebral bodies are identified. 7 degrees levoconvex curvature measured from the superior plate of T11 to the inferior endplate of L5. No significant coronal imbalance. There is a positive sagittal imbalance of 5.6 cm. Pelvic Tilt: Right superior pelvic tilt measuring 7 mm. Right pleural effusion with pleural drain in place. RADIOLOGY Tyrone Carlson MD - 04/09/2024 EXAM: XR SPINE SCOLIOSIS 2-3 VIEWS, 04/09/2024 11:54 AM COMPARISON: Lumbar spine radiographs March 17, 2024. 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 Thoracolumbar spine: 12 rib-bearing thoracic vertebral bodies and 5 lumbar vertebral bodies are identified. 7 degrees levoconvex curvature measured from the superior plate of T11 to the inferior endplate of L5. No significant coronal imbalance. There is a positive sagittal imbalance of 5.6 cm. Pelvic Tilt: Right superior pelvic tilt measuring 7 mm. Right pleural effusion with pleural drain in place. IMPRESSION IMPRESSION: No significant scoliotic curvature. There is positive sagittal imbalance and mild right superior pelvic tilt. [facility] Radiology Study observation (narrative) [facility] XR Thoracic and lumbar spine Views for scoliosisOrdered By: Tyrone Carlson on 04-09-2024 [facility] Work Phone: EKG 12 LeadOrdered By: Marvin Olvera on 04-06-2024 Atrial Rate 86 BPM [employer] Work Phone: [phone] P Condon 16 degrees [employer] Work Phone: [phone] P-R Interval 156 ms [employer] Work Phone: Q-T Interval 364 ms [employer] Work Phone: QRS Duration 80 ms [employer] Work Phone: QTc Calculation (Bazett) 435 ms [employer] Work Phone: R Condon 92 degrees [employer] Work Phone: [phone] T Condon 44 degrees [employer] Work Phone: Ventricular Rate 86 BPM [place] [employer] Work Phone: [place] [employer] Work Phone: EKG 12 Leadon 04-06-2024 Normal sinus rhythm Rightward axis Borderline ECG No previous ECGs available Confirmed by ROMINA OLVERA ([id number]) on 04/06/2024 3:35:04 PM Romina Penn MD - 04/06/2024 Normal sinus rhythm Rightward axis Borderline ECG No previous ECGs available Confirmed by ROMINA OLVERA ([id number]) on 04/06/2024 3:35:04 PM [employer] XR CHEST PORTABLEon 04-06-20 XR CHEST PORTABLE EXAMINATION: ONE XRAY VIEW OF THE CHEST 04/06/2024 1:03 pm COMPARISON: April 05 HISTORY: ORDERING SYSTEM PROVIDED HISTORY: Chest tube placement TECHNOLOGIST PROVIDED HISTORY: Reason for exam:->Chest tube placement What reading provider will be dictating this exam?->CRC FINDINGS: Placement of a right lower chest tube. Continue large right pleural effusion. Small pneumothorax seen without tracheal deviation. IMPRESSION: Placement of a right lower chest tube. Continue large right pleural effusion. Small pneumothorax seen without tracheal deviation. Interpreted by: Jamie Beck MD Signed by: Jamie Beck MD 04/07/24 Final result Normal [facility] XR CHEST (2 VW)on 04-05-2024 XR CHEST (2 VW) EXAMINATION: TWO XRAY VIEWS OF THE CHEST 04/05/2024 12:00 pm COMPARISON: None. HISTORY: ORDERING SYSTEM PROVIDED HISTORY: Pleural effusion TECHNOLOGIST PROVIDED HISTORY: What reading provider will be dictating this exam?->CRC FINDINGS: There is opacification of the right mid and lower lung likely due to pleural effusion, obscuring the right cardiac silhouette. The left lung is clear. No pneumothorax. Pleural effusion tracking along the right upper thorax. IMPRESSION: Large right pleural effusion. Underlying infiltrates cannot be excluded. Interpreted by: Samuel Vann MD Signed by: Samuel Vann MD 04/05/24 Final result Normal [facility] XR Chest 2 Viewson Large right pleural effusion. Underlying infiltrates cannot be excluded. [facility] RADIOLOGY EXAMINATION: TWO XRAY VIEWS OF THE CHEST 04/05/2024 12:00 pm COMPARISON: None. HISTORY: ORDERING SYSTEM PROVIDED HISTORY: Pleural effusion TECHNOLOGIST PROVIDED HISTORY: What reading provider will be dictating this exam?->CRC FINDINGS: There is opacification of the right mid and lower lung likely due to pleural effusion, obscuring the right cardiac silhouette. The left lung is clear. No pneumothorax. Pleural effusion tracking along the right upper thorax. [facility] RADIOLOGY Samuel Vann MD - 04/05 EXAMINATION: TWO XRAY VIEWS OF THE CHEST 04/05/2024 12:00 pm COMPARISON: None. HISTORY: ORDERING SYSTEM PROVIDED HISTORY: Pleural effusion TECHNOLOGIST PROVIDED HISTORY: What reading provider will be dictating this exam?->CRC FINDINGS: There is opacification of the right mid and lower lung likely due to pleural effusion, obscuring the right cardiac silhouette. The left lung is clear. No pneumothorax. Pleural effusion tracking along the right upper thorax. IMPRESSION: Large right pleural effusion. Underlying infiltrates cannot be excluded. [facility] Radiology Study observation (narrative) [facility] XR Chest 2 ViewsOrdered By: Samuel Vann on 04-05-2024 [facility] Work Phone: Activated partial thrombopla stin time (aPTT) in platelet poor plasma by coagulation aOrdered By: Ginny Soriano on 03-26-2024 aPTT Coag (PPP) [Time] 29.4 s 25.1-36.5 [facility] Comment on above: A hematocrit value g reater than 55% may lead to inaccurate results in coagulation testing. Patients having hematocrit values >55% require a special collection tube for coagulation studies. Please contact the laboratory at [phone] for redraw instructions. Aerobic Cultureon 03-26-2024 Aerobic Culture Comment TUBE 2 No Growth 2 Days Comment TUBE 2 No Anaerobes Isolated 3 Days Comment TUBE 2 Gram Stain Result Rare White Blood Cells No Bacteria Seen PERFORMED BY: [facility] [address] [facility] [id number] PATHOLOGIST ARMHOLE RAISER LOCKSTITCH HILARIO BERNABE M.D. Normal [facility] Comment on above: Performed By: #### F L TP, FLCCDIFF, FL LDH, AERC #### [facility] [address] [place] [id number] [facility] Basic Metabolic Panelon 03-03 Creatinine Clr Calc Pharmacy 123.78 Normal [facility] Comment on above: Result Comment: PERF ORMED BY: [facility] [address] [facility] [place] [address] PATHOLOGIST ARMHOLE [employer]IS[employer] LOCKSTITCH HILARIO BERNABE M.D. Performed By: #### B MP ####[place] [id number] [facility] GFR/1.73 sq M.predicted MDRD (S/P/Bld) [Vol rate/Area] mL/min/{1.73_m2} Normal [facility] Comment on above: Performed By: #### B MP ####[place] [id number] [facility] Calcium [Mass/volume] in Ser um or PlasmaOrdered By: Black Benitez on 03-26-2024 Calcium [Mass/Vol] 8.4 mg/dL Low 8.6-10.3 [facility] Comment on above: Performed By: #### B MP ####[place] [id number] [facility] Carbon dioxide, total [Moles /volume] in Serum or PlasmaOrdered By: Black Benitez on 03-26-2024 CO2 [Moles/Vol] 26.5 mmol/L Normal 21.0-31.0 [facility] Comment on above: Performed By: #### B MP ####[place] [id number] [facility] Cell Count/Diff, Fluidon Appearance, Fluid Clear Normal [facility] Comment on above: Order Comment: Comme nt Purple top Body Fluid Source: Thoracentesis Fluid Body Fluid Site: right pleural effusion Result Comment: The reference interval and other method performance specifications have not been established for this body fluid. The test result must be integrated into the clinical context for interpretation. Performed By: #### F L TP, FLCCDIFF, FL LDH, AERC #### [facility] [address] [place] [address] [place] Color, Fluid Yellow Normal [facility] Comment on above: Order Comment: Comme nt Purple top Body Fluid Source: Thoracentesis Fluid Body Fluid Site: right pleural effusion Result Comment: The reference interval and other method performance specifications have not been established for this body fluid. The test result must be integrated into the clinical context for interpretation. Performed By: #### F L TP, FLCCDIFF, FL LDH, AERC #### [facility] [address] [place] [address] [place] Color, Fluid Supernatant Yellow Normal [facility] Comment on above: Order Comment: Comme nt Purple top Body Fluid Source: Thoracentesis Fluid Body Fluid Site: right pleural effusion Result Comment: The reference interval and other method performance specifications have not been established for this body fluid. The test result must be integrated into the clinical context for interpretation. Performed By: #### F L TP, FLCCDIFF, FL LDH, AERC #### [facility] [address] [place] [address] [place] Eosinophils, Fluid 1 /100{WBC} Normal 0-3 [facility] Comment on above: Order Comment: Comme nt Purple top Body Fluid Source: Thoracentesis Fluid Body Fluid Site: right pleural effusion Result Comment: PERF ORMED BY: [place] [address] PATHOLOGIST [employer]HOLE [employer]OCKSTITCH HILARIO BERNABE M.D. Performed By: #### F L TP, FLCCDIFF, FL LDH, AERC #### [facility] [address] [place] [address] [place] Lymphocytes, Fluid 96 % Normal [facility] Comment on above: Order Comment: Comme nt Purple top Body Fluid Source: Thoracentesis Fluid Body Fluid Site: right pleural effusion Result Comment: The reference interval and other method performance specifications have not been established for this body fluid. The test result must be integrated into the clinical context for interpretation. Performed By: #### F L TP, FLCCDIFF, FL LDH, AERC #### [facility] [address] Monocytes/Macrophages, Fluid 1 % Normal [facility] Comment on above: Order Comment: Comme nt Purple top Body Fluid Source: Thoracentesis Fluid Body Fluid Site: right pleural effusion Result Comment: The reference interval and other method performance specifications have not been established for this body fluid. The test result must be integrated into the clinical context for interpretation. Performed By: #### F L TP, FLCCDIFF, FL LDH, AERC #### [facility] [address] Neutrophil, Fluid 1 % Normal [facility] Comment on above: Order Comment: Comme nt Purple top Body Fluid Source: Thoracentesis Fluid Body Fluid Site: right pleural effusion Result Comment: The reference interval and other method performance specifications have not been established for this body fluid. The test result must be integrated into the clinical context for interpretation. Performed By: #### F L TP, FLCCDIFF, FL LDH, AERC #### [facility] [address] [place] [id number] [facility] RBC, Fluid 7 Normal [facility] Comment on above: Order Comment: Comme nt Purple top Body Fluid Source: Thoracentesis Fluid Body Fluid Site: right pleural effusion Result Comment: The reference interval and other method performance specifications have not been established for this body fluid. The test result must be integrated into the clinical context for interpretation. Performed By: #### F L TP, FLCCDIFF, FL LDH, AERC #### [facility] [address] [place] [id number] [facility] TNC, Body Fluid 781 Normal [facility] Comment on above: Order Comment: Comme nt Purple top Body Fluid Source: Thoracentesis Fluid Body Fluid Site: right pleural effusion Result Comment: The reference interval and other method performance specifications have not been established for this body fluid. The test result must be integrated into the clinical context for interpretation. Performed By: #### F L TP, FLCCDIFF, FL LDH, AERC #### [facility] [address] [place] [address] Cells Counted Total [#] in B letty fluidOrdered By: Glory Hardy on 03-26-2024 Cells Counted Total (Body fld) [#] 781 mm^3 [facility] Comment on above: The reference interv al and other method performance specifications have not been established for this body fluid. The test result must be integrated into the clinical context for interpretation. Chloride [Moles/volume] in S ирина or PlasmaOrdered By: Black Benitez on 03-26-2024 Chloride [Moles/Vol] 103 mmol/L Normal 98-107 [facility] Comment on above: Performed By: #### B MP ####[address] Coagulation Profileon 2023 aPTT Coag (Bld) [Time] 29.4 s Normal 25.1-36.5 [facility] e [facility] Comment on above: Result Comment: A he matocrit value greater than 55% may lead to inaccurate results in coagulation testing. Patients having hematocrit values >55% require a special collection tube for coagulation studies. Please contact the laboratory at [phone] for redraw instructions. PERFORMED BY: [place] [address] PATHOLOGIST [employer]HOLE RAISER LOCKSTITCH HILARIO BERNABE M.D. Performed By: #### P P, PLT #### [address] Creatinine [Mass/volume] in Serum or PlasmaOrdered By: Black Benitez on 03-26-2024 Creatinine [Mass/Vol] 0.43 mg/dL Low 0.60-1.20 [facility] Comment on above: Performed By: #### B MP ####[address] Erythrocytes [#/volume] in B letty fluid by Automated countOrdered By: Glory Hardy on 03-26-2024 RBC Auto (Body fld) [#/Vol] 2027 mm^3 [facility] Comment on above: The reference interv al and other method performance specifications have not been established for this body fluid. The test result must be integrated into the clinical context for interpretation. Glucose [Mass/volume] in Ser um or PlasmaOrdered By: Black Benitez on 03-26-2024 Glucose [Mass/Vol] 100 mg/dL Normal 70-100 [facility] Comment on above: ADA recommended refe rence rangeRandom Glucose Reference Range is dependent on time and content of last meal. Glucose of more than 200 mg/dL in a nonstressed, ambulatory subject supports the diagnosis of Diabetes Mellitus. Result Comment: [place] om Glucose Reference Range is dependent on time and content of last meal. Glucose of more than 200 mg/dL in a nonstressed, ambulatory subject supports the diagnosis of Diabetes Mellitus. ADA recommended reference range Performed By: #### B MP ####[facility] INR in Platelet poor plasma by Coagulation assayOrdered By: Ginny Soriano on 03-26-2024 INR Coag (PPP) [Relative time] 0.9 {INR} Normal [facility] Comment on above: INR Therapeutic Rang e A) Pre- and Peroperative OAT started two weeks before surgery. NOT HIP SURGERY: 1.5 - 2.5 HIP SURGERY: 2 - 3B) Primary and secondary prevention of venous THROMBOSIS: 2 - 3C) Active venous thrombosis, pulmonary embolismand prevention of recurrent venous thrombosis: 2 - 3D) Prevention of arterial thromboembolismincluding patients with mechanical heart valves: 3 - 4.5 Result Comment: INR Therapeutic Range A) Pre- and Peroperative OAT started two weeks before surgery. NOT HIP SURGERY: 1.5 - 2.5 HIP SURGERY: 2 - 3 B) Primary and secondary prevention of venous THROMBOSIS: 2 - 3 C) Active venous thrombosis, pulmonary embolism and prevention of recurrent venous thrombosis: 2 - 3 D) Prevention of arterial thromboembolism including patients with mechanical heart valves: 3 - 4.5 Performed By: #### P P, PLT #### [facility] [address] [place] [address] [place] LDH, Fluidon 03-26-2024 LDH, Fluid 173 [IU]/mL Normal [facility] Comment on above: Order Comment: Tube Number Tube 1 Result Comment: No r eference range established Performed By: #### F L TP, FLCCDIFF, FL LDH, AERC #### [facility] [address] [place] [address] [place] Lactate dehydrogenase [Enzym atic activity/volume] in Body fluid by Lactate to pyruvatOrdered By: Glory Hardy on 03-26-2024 LDH Lactate to pyruvate reaction (Body fld) [Catalytic activity/Vol] 173 [IU]/mL [facility] Comment on above: No reference range e stablished No Panel InformationOrdered By: Black Benitez on 03-26-2024 Estimated GFR (CKD-EPI) > 60.0 mL/Min [facility] Creatinine Clearance (Chem 123.78 [facility] Platelets [#/volume] in Bloo d by Automated countOrdered By: Ginny Soriano on 03-26-2024 Platelets (Bld) [#/Vol] 466 10*3/uL High 150-450 [facility] Comment on above: Result Comment: PERF ORMED BY: [facility] [address] [place] [address] PATHOLOGIST ARMHOLE RAISER LOCKSTITCH HILARIO BERNABE M.D. Performed By: #### P P, PLT #### [facility] [address] [place] [address] [place] Potassium [Moles/volume] in Serum or PlasmaOrdered By: Black Benitez on 03-26-2024 Potassium [Moles/Vol] 3.6 mmol/L Normal 3.5-5.1 [facility] Comment on above: Performed By: #### B MP ####[facility] [address] [place] [address] [place] Protein [Mass/volume] in Bod y fluidOrdered By: Glory Hardy on 03-26-2024 Protein (Body fld) [Mass/Vol] 3.9 g/dL [facility] Prothrombin time (PT)Ordered By: Ginny Soriano on 03-26-2024 PT Coag (PPP) [Time] 10.8 s Normal 9.0-12.9 [facility] Comment on above: A hematocrit value g reater than 55% may lead to inaccurate results in coagulation testing. Patients having hematocrit values >55% require a special collection tube for coagulation studies. Please contact the laboratory at [phone] for redraw instructions. Result Comment: A he matocrit value greater than 55% may lead to inaccurate results in coagulation testing. Patients having hematocrit values >55% require a special collection tube for coagulation studies. Please contact the laboratory at [phone] for redraw instructions. Performed By: #### P P, PLT #### [facility] [address] Serum or plasma anion gap de terminationOrdered By: Black Benitez on 03-26-2024 Anion gap [Moles/Vol] 11.1 mmol/L Normal 6.0-15.0 [facility] Comment on above: Performed By: #### B MP ####[address] Sodium [Moles/volume] in Ser um or PlasmaOrdered By: Black Benitez on 03-26-2024 Sodium [Moles/Vol] 137 mmol/L Normal 136-145 [facility] Comment on above: Performed By: #### B MP ####[address] Total Protein, Fluidon 03-26 Total Protein, Fluid 3.9 g/dL Normal [facility] Comment on above: Order Comment: Tube Number Tube 1 Result Comment: PERF ORMED BY: [facility] [address] [facility] [address] PATHOLOGIST ARMHOLE RAISER LOCKSTITCH HILARIO BERNABE M.D. Performed By: #### F L TP, FLCCDIFF, FL LDH, AERC #### [address] Urea nitrogen [Mass/volume] in Serum or PlasmaOrdered By: Black Benitez on 03-26-2024 Urea nitrogen [Mass/Vol] 15 mg/dL Normal -25 [facility] Comment on above: Performed By: #### B MP ####[place] [id number] [facility] XR chest 1Von 03-26-2024 XR chest 1V [facility] [place] [address] [place] [id number] Ultrasound Report Signed Patient: Tiny Marte MR#: [id number] : 1960 Acct:[id number] Age/Sex: 63 / F ADM Date: 03/25/24 Loc: Room: [address] [place] [address] Type: ADM INOo Attending Dr: Ginny Soriano MD Ordering Provider: Glory Hardy MD; Ginny Soriano MD Date of Service: 03/26/24 US/US thoracentesis: right pleural effusion ([id number]) XR/XR chest 1V: POST THORACENTESIS RT. LUNG Copies to: MD Ginny Carroll MD ULTRASOUND-GUIDED THORACENTESIS PERFORMED HISTORY: Right pleural effusion TECHNIQUE: Informed consent was obtained. Thoracentesis catheter was utilized. The skin entry site prepped and draped in sterile fashion with local lidocaine administered. 0.9 L of clear straw-colored fluid was withdrawn with a vacuum drainage. The catheter was removed with adequate hemostasis obtained. After 900 cc was withdrawn patient developed coughing. Catheter removed.. Patient sent to floor in satisfactory condition US/US thoracentesis IMPRESSION: SUCCESSFUL ULTRASOUND-GUIDED THORACENTESIS. Single view chest post thoracentesis. Reduction of right pleural effusion with moderate residual. No pneumothorax. IMPRESSION: No postprocedure pneumothorax. Interval reduction of right pleural effusion with moderate residual Impression dictated by: Shawn Morrison M.D.03/26/2024 3:44 PM Dictation Location: [place] [address] Tech: Jayne Devi Transcribed By: [facility] 03/26/24 154 Dictated By: Shawn Morrison DO 03/26/24 154 Signed By: 03/26/24 1544 Normal [facility] XR chest 1V portableon 03-26 XR chest 1V portable [facility] [place] [address] [place] [address] XRay Report Signed Patient: Tiny Marte MR#: [id number] : 1960 Acct:[id number] Age/Sex: 63 / F ADM Date: 03/25/24 Loc: Room: [address] [place] [address] Type: ADM IN Attending Dr: Ginny Soriano MD Copies to: MD Ginny Carroll MD Ordering Provider: Glory Hardy MD Date of Service: 03/26/24 XR/XR chest 1V portable: baseline prior to thoracentesis (transfer from [facility] film chest Single view HISTORY: Baseline prior to thoracentesis. COMPARISON: CT chest 03/25/2024. No right hemidiaphragm elevation. Large right pleural effusion. FINDINGS: SUPPORT DEVICES: None POSTSURGICAL CHANGES: None HEART: Right heart border obscured. PULMONARY LUIS ANGEL: Within normal limits MEDIASTINUM: Unremarkable LUNGS AND PLEURA: Large right subpulmonic effusion. Adjacent atelectasis. No pneumothorax. BONY STRUCTURES: Intact ADDITIONAL FINDINGS None XR/XR chest 1V portable IMPRESSION: Large right subpulmonic pleural effusion and adjacent atelectasis. Impression dictated by: Shawn Morrison M.D.03/26/2024 11:29 AM Dictation Location: [place] [address] Transcribed By: [facility] 03/26/24 112 Dictated By: Shawn Morrison DO 03/26/241125 Signed By: 03/26/24 1129 Normal [facility] BASIC METABOLIC PANELon 10- Anion gap [Moles/Vol] 11 mmol/L Normal 7-17 [facility] Comment on above: Performed By: #### C 7C ####[facility] (DEFAULT)[address] [address] Calcium [Mass/Vol] 8.2 mg/dL Low 8.6-10.5 [facility] Comment on above: Performed By: #### C 7C ####[facility] (DEFAULT)[address] [address] Chloride [Moles/Vol] 104 mmol/L Normal 98-108 [facility] Comment on above: Performed By: #### C 7C ####[facility] (DEFAULT)[address] [place] [address] CO2 [Moles/Vol] 27 mmol/L Normal 21-31 [facility] Comment on above: Performed By: #### C 7C ####[facility] (DEFAULT)[address] [place] [address] Creatinine [Mass/Vol] 0.42 mg/dL Low 0.50-1.20 [facility] Comment on above: Performed By: #### C 7C ####[facility] (DEFAULT)[address] [place] [address] eGFR, CKD-EPI, Female > Normal >=60 [facility] Comment on above: Result Comment: Repo rted eGFR is based on the CKD-EPI 2020 equation using creatinine, age, and sex. Performed By: #### C 7C ####[facility] (DEFAULT)[address] [place] [address] Glucose [Mass/Vol] 111 mg/dL High 70-99 [facility] Comment on above: Performed By: #### C 7C ####[facility] (DEFAULT)[address] [place] [address] Osmolality [Osmolality] 289 mosm/kg Normal 278-305 [facility] Comment on above: Performed By: #### C 7C ####[facility] (DEFAULT)[address] [place] [address] Potassium [Moles/Vol] 4.0 mmol/L Normal 3.5-5.0 [facility] Comment on above: Performed By: #### C 7C ####[facility] (DEFAULT)[address] [place] [address] Sodium [Moles/Vol] 138 mmol/L Normal 135-145 [facility] Comment on above: Performed By: #### C 7C ####[facility] (DEFAULT)[address] [place] [address] Urea nitrogen [Mass/Vol] 11 mg/dL Normal 7-25 [facility] Comment on above: Performed By: #### C 7C ####[facility] (DEFAULT)[address] [place] [address] Urea nitrogen/Creatinine [Mass ratio] 26 mg/mg Normal [facility] Comment on above: Performed By: #### C 7C ####[facility] (DEFAULT)[address] [place] [address] CBC,PLATELETSon 03-22-2024 Hematocrit (Bld) [Volume fraction] 28.0 % Low 34.9-44.3 [facility] Comment on above: Performed By: #### H EMOGC ####[facility] (DEFAULT)[address] [place] [address] Hemoglobin (Bld) [Mass/Vol] 9.0 g/dL Low 11.4-15.2 [facility] Comment on above: Performed By: #### H EMOGC ####[facility] (DEFAULT)[address] [place] [address] MCV (RBC) [Entitic vol] 89.5 fL Normal 79.6-97.7 [facility] Comment on above: Performed By: #### H EMOGC ####[facility] (DEFAULT)[address] [place] [address] Mean Cell Hgb 28.8 pg Normal 25.9-33.9 [facility] Comment on above: Performed By: #### H EMOGC ####[facility] (DEFAULT)[address] [place] [address] Mean Cell Hgb Conc 32.1 g/dL Normal 31.4-35.9 [facility] Comment on above: Performed By: #### H EMOGC ####[facility] (DEFAULT)[address] [place] [address] Platelet mean volume (Bld) [Entitic vol] 9.1 fL Normal 8.5-12.2 [facility] Comment on above: Performed By: #### H EMO ####[facility] (DEFAULT)[address] [place] [address] Platelets (Bld) [#/Vol] 278 10*3/uL Normal 150-393 [facility] Comment on above: Performed By: #### H EMO ####[facility] (DEFAULT)[address] [place] [address] RBC (Bld) [#/Vol] 3.13 10*6/uL Low 3.91-5.04 [facility] Comment on above: Performed By: #### H EMO ####[facility] (DEFAULT)[address] [place] [address] RBC Distribution 13.7 % Normal 10.8-14.9 [facility] Comment on above: Performed By: #### H EMO ####[facility] (DEFAULT)[address] [place] [address] WBC (Bld) [#/Vol] 5.49 10*3/uL Normal 3.99-11.19 [facility] Comment on above: Performed By: #### H EMO ####[facility] (DEFAULT)[address] [place] [address] BASIC METABOLIC PANELon 10-2 0-2023 Anion gap [Moles/Vol] 11 mmol/L Normal 7-17 [facility] Comment on above: Performed By: #### C 7C ####[facility] (DEFAULT)[address] [place] [address] Calcium [Mass/Vol] 7.3 mg/dL Low 8.6-10.5 [facility] Comment on above: Performed By: #### C 7C ####[facility] (DEFAULT)[address] [place] [address] Chloride [Moles/Vol] 104 mmol/L Normal 98-108 [facility] Comment on above: Performed By: #### C 7C ####[facility] (DEFAULT)[address] [place] [address] CO2 [Moles/Vol] 23 mmol/L Normal 21-31 [facility] Comment on above: Performed By: #### C 7C ####[facility] (DEFAULT)[address] [place] [address] Creatinine [Mass/Vol] 0.37 mg/dL Low 0.50-1.20 [facility] Comment on above: Performed By: #### C 7C ####[facility] (DEFAULT)[address] [place] [address] eGFR, CKD-EPI, Female > Normal >=60 [facility] Comment on above: Result Comment: Repo rted eGFR is based on the CKD-EPI 2020 equation using creatinine, age, and sex. Performed By: #### C 7C ####[facility] (DEFAULT)[address] [place] [address] Glucose [Mass/Vol] 104 mg/dL High 70-99 [facility] Comment on above: Performed By: #### C 7C ####[facility] (DEFAULT)[address] [place] [address] Osmolality [Osmolality] 281 mosm/kg Normal 278-305 [facility] Comment on above: Performed By: #### C 7C ####[facility] (DEFAULT)[address] [place] [address] Potassium [Moles/Vol] 3.8 mmol/L Normal 3.5-5.0 [facility] Comment on above: Performed By: #### C 7C ####[facility] (DEFAULT)[address] [place] [address] Sodium [Moles/Vol] 134 mmol/L Low 135-145 [facility] Comment on above: Performed By: #### C 7C ####[facility] (DEFAULT)[address] [place] [address] Urea nitrogen [Mass/Vol] 12 mg/dL Normal 7-25 [facility] Comment on above: Performed By: #### C 7C ####[facility] (DEFAULT)[address] [place] [address] Urea nitrogen/Creatinine [Mass ratio] 32 mg/mg Normal [facility] Comment on above: Performed By: #### C 7C ####[facility] (DEFAULT)[address] [place] [address] CBC,PLATELETSon 03-21-2024 Hematocrit (Bld) [Volume fraction] 27.4 % Low 34.9-44.3 [facility] Comment on above: Performed By: #### H EMOGC ####[facility] (DEFAULT)[address] [place] [address] Hemoglobin (Bld) [Mass/Vol] 8.8 g/dL Low 11.4-15.2 [facility] Comment on above: Performed By: #### H EMOGC ####[facility] (DEFAULT)[address] [place] [address] MCV (RBC) [Entitic vol] 88.7 fL Normal 79.6-97.7 [facility] Comment on above: Performed By: #### H EMOGC ####[facility] (DEFAULT)[address] [place] [address] Mean Cell Hgb 28.5 pg Normal 25.9-33.9 [facility] Comment on above: Performed By: #### H EMOGC ####[facility] (DEFAULT)[address] [place] [address] Mean Cell Hgb Conc 32.1 g/dL Normal 31.4-35.9 [facility] Comment on above: Performed By: #### H EMOGC ####[facility] (DEFAULT)[address] [place] [address] Platelet mean volume (Bld) [Entitic vol] 9.1 fL Normal 8.5-12.2 [facility] Comment on above: Performed By: #### H EMOGC ####[facility] (DEFAULT)[address] [place] [address] Platelets (Bld) [#/Vol] 234 10*3/uL Normal 150-393 [facility] Comment on above: Performed By: #### H EMOGC ####[facility] (DEFAULT)[address] [place] [address] RBC (Bld) [#/Vol] 3.09 10*6/uL Low 3.91-5.04 [facility] Comment on above: Performed By: #### H EMOGC ####[facility] (DEFAULT)[address] [place] [address] RBC Distribution 13.7 % Normal 10.8-14.9 [facility] Comment on above: Performed By: #### H EMOGC ####[facility] (DEFAULT)[address] [place] [address] WBC (Bld) [#/Vol] 4.64 10*3/uL Normal 3.99-11.19 [facility] Comment on above: Performed By: #### H EMOGC ####[facility] (DEFAULT)[address] [place] [address] CBC AND ELECTRONIC DIFFon Abs Baso Auto < Normal 0.00-0.15 [facility] Comment on above: Performed By: #### L AB980 ####[facility] (DEFAULT)[address] [place] [address] Abs Eos Auto < Normal 0.00-0.42 [facility] Comment on above: Performed By: #### L AB980 ####[facility] (DEFAULT)[address] [place] [address] Basophils/100 WBC (Bld) 0.1 % Normal [facility] Comment on above: Performed By: #### L AB980 ####[facility] (DEFAULT)[address] [place] [address] DIFF STATUS Electronic Differential Normal [facility] Comment on above: Performed By: #### L AB980 ####[facility] (DEFAULT)[address] [place] [address], [place] [address] Eosinophils/100 WBC (Bld) 0.0 % Normal [facility] Comment on above: Performed By: #### L AB980 ####[facility] (DEFAULT)[address] [place] [address] Hematocrit (Bld) [Volume fraction] 31.3 % Low 34.9-44.3 [facility] Comment on above: Performed By: #### L AB980 ####[facility] (DEFAULT)[address] [place] [address] Hemoglobin (Bld) [Mass/Vol] 9.8 g/dL Low 11.4-15.2 [facility] Comment on above: Performed By: #### L AB980 ####[facility] (DEFAULT)[address] [place] [address], [place] [address] Immature Grans % 0.6 % Normal [facility] Comment on above: Performed By: #### L AB980 ####[facility] (DEFAULT)[address] [place] [address] Immature Grans Absolute 0.05 K/uL Normal <=0.08 [facility] Comment on above: Performed By: #### L AB980 ####[facility] (DEFAULT)[address] [place] [address] Lymphocytes (Bld) [#/Vol] 0.86 10*3/uL Low 1.16-3.51 [facility] Comment on above: Performed By: #### L AB980 ####[facility] (DEFAULT)[address] [place] [address] Lymphocytes/100 WBC (Bld) 10.4 % Normal [facility] Comment on above: Performed By: #### L AB980 ####[facility] (DEFAULT)[address] [place] [address] MCV (RBC) [Entitic vol] 93.2 fL Normal 79.6-97.7 [facility] Comment on above: Performed By: #### L AB980 ####[facility] (DEFAULT)[address] [place] [address] Mean Cell Hgb 29.2 pg Normal 25.9-33.9 [facility] Comment on above: Performed By: #### L AB980 ####[facility] (DEFAULT)[address] [place] [address] Mean Cell Hgb Conc 31.3 g/dL Low 31.4-35.9 [facility] Comment on above: Performed By: #### L AB980 ####[facility] (DEFAULT)[address] [place] [address] Monocytes (Bld) [#/Vol] 0.80 10*3/uL Normal 0.22-0.87 [facility] Comment on above: Performed By: #### L AB980 ####[facility] (DEFAULT)[address] [place] [address] Monocytes/100 WBC (Bld) 9.7 % Normal [facility] Comment on above: Performed By: #### L AB980 ####[facility] (DEFAULT)[address] [place] [address] Nucleated RBC 0.0 /100 WBC Normal <=0.2 [facility] Comment on above: Performed By: #### L AB980 ####[facility] (DEFAULT)[address] [place] [address] Platelet mean volume (Bld) [Entitic vol] 9.1 fL Normal 8.5-12.2 [facility] Comment on above: Performed By: #### L AB980 ####[facility] (DEFAULT)[address] [place] [address] Platelets (Bld) [#/Vol] 214 10*3/uL Normal 150-393 [facility] Comment on above: Performed By: #### L AB980 ####[facility] (DEFAULT)[address] [place] [address] RBC (Bld) [#/Vol] 3.36 10*6/uL Low 3.91-5.04 [facility] Comment on above: Performed By: #### L AB980 ####[facility] (DEFAULT)[address] [place] [address] RBC Distribution 13.8 % Normal 10.8-14.9 [facility] Comment on above: Performed By: #### L AB980 ####[facility] (DEFAULT)[address] [place] [address] Segs + Bands Auto 79.2 % Normal [facility] Comment on above: Performed By: #### L AB980 ####[facility] (DEFAULT)[address] [place] [address] Segs + Bands,Absolute Auto 6.53 K/uL Normal 1.64-7.28 [facility] Comment on above: Performed By: #### L AB980 ####[facility] (DEFAULT)[address] [place] [address] WBC (Bld) [#/Vol] 8.25 10*3/uL Normal 3.99-11.19 [facility] Comment on above: Performed By: #### L AB980 ####[facility] (DEFAULT)[address] [place] [address] CHEM 7 (LYTES,BUN,CREA,GLUC) on 03-20-2024 Anion gap [Moles/Vol] 15 mmol/L Normal 7-17 [facility] Comment on above: Performed By: #### C HM7 ####[facility] (DEFAULT)[address] [place] [address] Chloride [Moles/Vol] 110 mmol/L High 98-108 [facility] Comment on above: Performed By: #### C HM7 ####[facility] (DEFAULT)[address] [place] [address] CO2 [Moles/Vol] 18 mmol/L Low 21-31 [facility] Comment on above: Performed By: #### C HM7 ####[facility] (DEFAULT)[address] [place] [address] Creatinine [Mass/Vol] 0.36 mg/dL Low 0.50-1.20 [facility] Comment on above: Performed By: #### C HM7 ####[facility] (DEFAULT)[address] [place] [address] eGFR, CKD-EPI, Female > Normal >=60 [facility] Comment on above: Result Comment: Repo rted eGFR is based on the CKD-EPI 2020 equation using creatinine, age, and sex. Performed By: #### C HM7 ####[facility] (DEFAULT)[address] [place] [address] Glucose [Mass/Vol] 119 mg/dL High 70-99 [facility] Comment on above: Performed By: #### C HM7 ####[facility] (DEFAULT)[address] [place], [place] [address], [place] [address] Osmolality [Osmolality] 292 mosm/kg Normal 278-305 [facility] Comment on above: Performed By: #### C HM7 ####[facility] (DEFAULT)[address] [place] [address] Potassium [Moles/Vol] 4.1 mmol/L Normal 3.5-5.[address] [facility] [place] [facility] Comment on above: Performed By: #### C HM7 ####[facility] (DEFAULT)[address] [place] [address] Sodium [Moles/Vol] 139 mmol/L Normal 135-145 [facility] Comment on above: Performed By: #### C HM7 ####[facility] (DEFAULT)[address] [place] [address] Urea nitrogen [Mass/Vol] 12 mg/dL Normal 7-25 [facility] Comment on above: Performed By: #### C HM7 ####[facility] (DEFAULT)[address] [place] [address] Urea nitrogen/Creatinine [Mass ratio] 33 mg/mg Normal [facility] Comment on above: Performed By: #### C HM7 ####[facility] (DEFAULT)[address] [place] [address] XR FEMUR RIGHT 2+ VIEWSon XR FEMUR RIGHT 2+ VIEWS Normal [facility] CBC AND ELECTRONIC DIFFon Abs Baso Auto < Normal 0.00-0.15 [facility] Comment on above: Performed By: #### L [id number] ####[facility] (DEFAULT)[address] [place] [address] Basophils/100 WBC (Bld) 0.5 % Normal [facility] Comment on above: Performed By: #### L AB980 ####[facility] (DEFAULT)[address] [place] [address] DIFF STATUS Electronic Differential Normal [facility] Comment on above: Performed By: #### L AB980 ####[facility] (DEFAULT)[address] [place] [address] Eosinophils (Bld) [#/Vol] 0.12 10*3/uL Normal 0.00-0.42 [facility] Comment on above: Performed By: #### L AB980 ####[facility] (DEFAULT)[address] [place] [address] Eosinophils/100 WBC (Bld) 2.0 % Normal [facility] Comment on above: Performed By: #### L AB980 ####[facility] (DEFAULT)[address] [place] [address] Hematocrit (Bld) [Volume fraction] 38.0 % Normal 34.9-44.3 [facility] Comment on above: Performed By: #### L AB980 ####[facility] (DEFAULT)[address] [place] [address] Hemoglobin (Bld) [Mass/Vol] 11.9 g/dL Normal 11.4-15.2 [facility] Comment on above: Performed By: #### L AB980 ####[facility] (DEFAULT)[address] [place] [address] Immature Grans % 0.3 % Normal [facility] Comment on above: Performed By: #### L AB980 ####[facility] (DEFAULT)[address] [place] [address], [place] [address] Immature Grans Absolute < Normal <=0.08 [facility] Comment on above: Performed By: #### L AB980 ####[facility] (DEFAULT)[address] [place] [address] Lymphocytes (Bld) [#/Vol] 1.65 10*3/uL Normal 1.16-3.51 [facility] Comment on above: Performed By: #### L AB980 ####[facility] (DEFAULT)[address] [place] [address] Lymphocytes/100 WBC (Bld) 27.5 % Normal [facility] Comment on above: Performed By: #### L AB980 ####[facility] (DEFAULT)[address] [place] [address] MCV (RBC) [Entitic vol] 89.6 fL Normal 79.6-97.7 [facility] Comment on above: Performed By: #### L AB980 ####[facility] (DEFAULT)[address] [place] [address] Mean Cell Hgb 28.1 pg Normal 25.9-33.9 [facility] Comment on above: Performed By: #### L AB980 ####[facility] (DEFAULT)[address] [place] [address] Mean Cell Hgb Conc 31.3 g/dL Low 31.4-35.9 [facility] Comment on above: Performed By: #### L AB980 ####[facility] (DEFAULT)[address] [place] [address] Monocytes (Bld) [#/Vol] 0.52 10*3/uL Normal 0.22-0.87 [facility] Comment on above: Performed By: #### L AB980 ####[facility] (DEFAULT)[address] [place] [address] Monocytes/100 WBC (Bld) 8.7 % Normal [facility] Comment on above: Performed By: #### L AB980 ####[facility] (DEFAULT)[address] [place] [address] Nucleated RBC 0.0 /100 WBC Normal <=0.2 [facility] Comment on above: Performed By: #### L AB980 ####[facility] (DEFAULT)[address] [place] [address] Platelet mean volume (Bld) [Entitic vol] 9.0 fL Normal 8.5-12.2 [facility] Comment on above: Performed By: #### L AB980 ####[facility] (DEFAULT)[address] [place] [address] Platelets (Bld) [#/Vol] 276 10*3/uL Normal 150-393 [facility] Comment on above: Performed By: #### L AB980 ####[facility] (DEFAULT)[address] [place] [address] RBC (Bld) [#/Vol] 4.24 10*6/uL Normal 3.91-5.04 [facility] Comment on above: Performed By: #### L AB980 ####[facility] (DEFAULT)[address] [place] [address] RBC Distribution 13.8 % Normal 10.8-14.9 [facility] Comment on above: Performed By: #### L AB980 ####[facility] (DEFAULT)[address] [place] [address] Segs + Bands Auto 61.0 % Normal [facility] Comment on above: Performed By: #### L AB980 ####[facility] (DEFAULT)[address] [place] [address] Segs + Bands,Absolute Auto 3.66 K/uL Normal 1.64-7.28 [facility] Comment on above: Performed By: #### L [id number] ####[facility] (DEFAULT)[address] [place] [address] WBC (Bld) [#/Vol] 6.00 10*3/uL Normal 3.99-11.19 [facility] Comment on above: Performed By: #### L [id number] ####[facility] (DEFAULT)[address] [place] [address] CHEM 7 (LYTES,BUN,CREA,GLUC) on 03-19-2024 Anion gap [Moles/Vol] 12 mmol/L Normal 7-17 [facility] Comment on above: Performed By: #### C HM7 ####[facility] (DEFAULT)[address] [place] [address] Chloride [Moles/Vol] 110 mmol/L High 98-108 [facility] Comment on above: Performed By: #### C HM7 ####[facility] (DEFAULT)[address] [place] [address] CO2 [Moles/Vol] 21 mmol/L Normal 21-31 [facility] Comment on above: Performed By: #### C HM7 ####[facility] (DEFAULT)[address] [place] [address] Creatinine [Mass/Vol] 0.42 mg/dL Low 0.50-1.20 [facility] Comment on above: Performed By: #### C HM7 ####[facility] (DEFAULT)[address] [place] [address] eGFR, CKD-EPI, Female > Normal >=60 [facility] Comment on above: Result Comment: Repo rted eGFR is based on the CKD-EPI 2020 equation using creatinine, age, and sex. Performed By: #### C HM7 ####[facility] (DEFAULT)[address] [place] [address] Glucose [Mass/Vol] 102 mg/dL High 70-99 [facility] Comment on above: Performed By: #### C HM7 ####[facility] (DEFAULT)[address] [place] [address] Osmolality [Osmolality] 290 mosm/kg Normal 278-305 [facility] Comment on above: Performed By: #### C HM7 ####[facility] (DEFAULT)[address] [place] [address] Potassium [Moles/Vol] 3.6 mmol/L Normal 3.5-5.0 [facility] Comment on above: Performed By: #### C HM7 ####[facility] (DEFAULT)[address] [place] [address] Sodium [Moles/Vol] 139 mmol/L Normal 135-145 [facility] Comment on above: Performed By: #### C HM7 ####[facility] (DEFAULT)[address] [place] [address] Urea nitrogen [Mass/Vol] 12 mg/dL Normal - [facility] Comment on above: Performed By: #### C HM7 ####[facility] (DEFAULT)[address] [place] [address] Urea nitrogen/Creatinine [Mass ratio] 29 mg/mg Normal [facility] Comment on above: Performed By: #### C HM7 ####[facility] (DEFAULT)[address] [place] [address] SURG PATH REQUESTon 03-19-20 Addendum Normal [facility] Comment on above: Result Comment: Bean garcia tumor: Androgen receptor positive (85%, strong intensity) by manual quantification at [facility].Androgen receptor (AR) is evaluated by manual quantitative immunohistochemistry on formalin-fixed (for >6 and <72 hours if possible), paraffin-embedded tissue using clone [id number] (DAKO) and Leica/Kaye polymer detection system on a Leica/Kaye auto-stainer. The percentage of positive tumor cell nuclei is scored as <1% negative or >/=1% positive and the overall staining intensity is categorized as weak, moderate or strong.If the specimen has been decalcified, exceeds cold-ischemic time or is outside the recommended range for formalin fixation time, the results should be interpreted with caution. This assay has not been validated for decalcified specimens, cytology specimens and specimens in which the cold ischemic/fixation time is unknown.All controls show appropriate reactivity. All immunohistochemistry, in situ hybridization and histochemical tests were developed and are performed at the [facility], [facility]. All tests reported here, except those addressing HER2, ALK and PD-L1 expression as predictive markers, have not been cleared by or approved by the [place] FDA. The laboratory is regulated under CLIA as qualified to perform high-complexity testing. The tests are used for clinical purposes. They should not be regarded as investigational or for research.Addendum electronically signed by Rubi Islas MD, PhD on 03/26/2024 at 12:57 PM Performed By: #### S URG ####[facility] (DEFAULT)[address] [place] [address] Addendum 2 [facility] Comment on above: Result Comment: Adde ndum electronically signed by Rubi Islas MD, PhD on 03/31/2024 at 10:10 AM Performed By: #### S URGP ####[facility] (DEFAULT)[address] [place] [id number] Case Report [facility] Comment on above: Result Comment: Surg ical Pathology Report Case: [id number] Provider: Chepe Chambers MD Collected: 03/19/2024 01:05 PMOrdering Location[facility] Received: 03/19/2024 01:10 PMPathologist: Rubi Islas MD, PhDIntraop: JOSELYN Newtonpecimens: A) - SURG PATH, Right proximal femur bone lesion B) - SURG PATH, Right proximal femur bone lesion #2 Performed By: #### S URGP ####[facility] (DEFAULT)[address] [place] [address] Clinical History Preop Diagnosis: Imp ending pathologic fracture. Medical History: Breast cancer with history of radiation therapy. Hypothyroidism. History of chemotherapy. Pericardial effusion. Gastroesophageal reflux disease. [facility] Comment on above: Performed By: #### S URGP ####[facility] (DEFAULT)[address] [place] [address] Gross Description [facility] Comment on above: Result Comment: The specimens are received in two properly labeled containers with the patient's name and accession number.A. The specimen is designated right proximal femur bone lesion and consists of a 3.6 x 3.5 x 1.5 cm aggregate of tissue fragments. A touch prep is prepared and the specimen is submitted entirely for frozen section and is resubmitted as received in cassettes A1-3, respectively. TE 3Time of specimen removal from patient: 03/19/2024 at 1:04 p.m.Time specimen placed in formalin: 03/19/2024 at 2:00 p.m. Cold Ischemia Time: 56 minutesTime specimen removed from formalin: 03/19/2024 at 2300 Total Fixation Time: 9 hours 0 minutesB. The specimen is designated right proximal femur bone lesion #2 and consists of two fragments measuring 3.2 x 1.7 x 0.6 cm (touch prep and frozen performed per Kaci) and 3.9 x 1.8 x 0.7 cm. The frozen section tissue is resubmitted as received in cassette B1. The remaining tissue is submitted entirely in cassette B2-3. TE 3Time of specimen removal from patient: 03/19/2024 at 1:37 p.m.Time specimen placed in formalin: 03/19/2024 at 2:00 p.m. Cold Ischemia Time: 23 minutesTime specimen removed from formalin: 03/19/2024 at 2300 Total Fixation Time: 9 hours 0 minutesLab Use Only: JobID [id number] for this case was: Fabrice Rios Performed By: #### S URGP ####[facility] (DEFAULT)[address] [place] [address] Intraoperative Diagnosis Normal [facility] Comment on above: Result Comment: A1-3 . Right proximal femur bone lesion (Frozen section and touch preparation performed):For Immediate Release to [facility]'s [facility]? YesAtypical crush cells and bone marrow elements, defer to permanent.Note: Reported by Dr. Gibbs to Dr. Chambers on 03/19/2024 at 1:29 p.m.B1. Right proximal femur bone lesion #2 (Frozen section and touch preparation performed):Positive for malignancy, favor metastatic carcinoma.Note: Reported by Dr. Gibbs to Dr. Chambers on 03/19/2024 at 2:00 p.m.Intraoperative Registrar Assistant: Rasheed Gibbs MD Performed By: #### S URGP ####[facility] (DEFAULT)[address] [place] [address] Microscopic Description Normal [facility] Comment on above: Result Comment: Estr ogen receptor (ER) and progesterone receptor (NY) are evaluated by manual quantitative immunohistochemistry on formalin-fixed (for >6 and <72 hours if possible), paraffin-embedded tissue using clone [id number] (2NDNATURE) for ER, clone [id number] (DAKO) for [place] and Leica/Kaye polymer detection system on a Leica/Kaye or DAKO auto-stainer.For ER, the percentage of positive tumor cell nuclei is scored as <1% negative, 1-10% low positive or >10% positive and the overall staining intensity is categorized as weak, moderate or strong. There are limited data on the overall benefit of endocrine therapy with a low level (1-10%) ER expression, but they currently suggest possible benefit, so patients are considered eligible for endocrine treatment. There are data that suggest invasive cancers with these results are heterogeneous in both behavior and biology and often have gene expression profiles more similar to ER-negative cancers.For NY, the percentage of positive tumor cell nuclei is scored as <1% negative or >/=1% positive and the overall staining intensity is categorized as weak, moderate or strong.HER2 protein expression is evaluated by manual quantitative immunohistochemistry on formalin-fixed (for >6 and <72 hours if possible), paraffin-embedded tissue using FDA approved clone [id number] (rabbit monoclonal, Callahan) on a Callahan auto-stainer, and scored according to ASCO/CAP criteria. Membrane staining of tumor cells is scored as readily appreciated using a low power objective as 0 (negative) no staining or membrane staining that is incomplete and faint/barely perceptible in 10% of invasive tumor cells; 2+ (equivocal) weak to moderate complete membrane staining observed in >10% of tumor cells; 3+ (positive) circumferential, complete, intense membrane staining observed in a homogeneous contiguous population within >10% of invasive tumor cells. Breast cancers with HER2 IHC score 3+ are usually eligible for HER2-targeted therapy. Breast cancers with HER2 IHC score 1+ or score 2+ and a negative ANNE result are considered HER2 low and may be eligible for HER2-targeted therapy. Breast cancers that are HER2 ultralow may be eligible for HER2-targeted therapy.If the specimen has been decalcified, exceeds cold-ischemic time or is outside the recommended range for formalin fixation time, the results should be interpreted with caution. This assay has not been validated for decalcified specimens, cytology specimens and specimens in which the cold ischemic/fixation time is unknown.All controls show appropriate reactivity. All immunohistochemistry, in situ hybridization and histochemical tests were developed and are performed at the [facility], [facility]. All tests reported here, except those addressing HER2, ALK and PD-L1 expression as predictive markers, have not been cleared by or approved by the [place] FDA. The laboratory is regulated under CLIA as qualified to perform high-complexity testing. The tests are used for clinical purposes. They should not be regarded as investigational or for research.References: J Clin Oncol. 2019 13:[id number], Arch Pathol Lab Med. 2018 Apr;142(11):2652-4918 Performed By: #### S URGP ####[facility] (DEFAULT)[address] [place] [address] Pathologic Diagnosis Normal [facility] Comment on above: Result Comment: A. R ight proximal femur bone lesion, excision:Metastatic carcinoma.Note: Immunostains for AE1/3 highlight tumor cells.B. Right proximal femur bone lesion #2, excision:Metastatic carcinoma, consistent with a breast primary (see note).Invasive tumor: ER negative (<1%), NY negative (<1%), HER2 negative (1+) by manual quantification at [facility].Note: A panel of immunostains was performed and the results demonstrate tumor cells are positive for CK7 and GATA3, suggesting a breast primary. Performed By: #### S URGP ####[facility] (DEFAULT)[address] [place] [address] Professional Interpretation Performed at: Normal [facility] Comment on above: Result Comment: [facility] CLINICAL [id number] [address] Performed By: #### S URGP ####[facility] (DEFAULT)[address] [place] [address] CBC AND ELECTRONIC DIFFon Abs Baso Auto < Normal 0.00-0.15 [facility] Comment on above: Performed By: #### L [id number] ####[facility] (DEFAULT)[address] [place] [address] Basophils/100 WBC (Bld) 0.5 % Normal [facility] Comment on above: Performed By: #### L [id number] ####[facility] (DEFAULT)[address] [place] [address] DIFF STATUS Electronic Differential Normal [facility] Comment on above: Performed By: #### L [id number] ####[facility] (DEFAULT)[address] [place] [address] Eosinophils (Bld) [#/Vol] 0.12 10*3/uL Normal 0.00-0.42 [facility] Comment on above: Performed By: #### L [id number] ####[facility] (DEFAULT)[address] [place] [address], [place] [address] Eosinophils/100 WBC (Bld) 2.1 % Normal [facility] Comment on above: Performed By: #### L [id number] ####[facility] (DEFAULT)[address] [place] [address], [place] [address] Hematocrit (Bld) [Volume fraction] 39.4 % Normal 34.9-44.3 [facility] Comment on above: Performed By: #### L [id number] ####[facility] (DEFAULT)[address] [place] [address], [place] [address] Hemoglobin (Bld) [Mass/Vol] 12.3 g/dL Normal 11.4-15.2 [facility] Comment on above: Performed By: #### L [id number] ####[facility] (DEFAULT)[address] [place] [address], [place] [address] Immature Grans % 0.4 % Normal [facility] Comment on above: Performed By: #### L [id number] ####[facility] (DEFAULT)[address] [place] [address], [place] [address] Immature Grans Absolute < Normal <=0.08 [facility] Comment on above: Performed By: #### L [id number] ####[facility] (DEFAULT)[address] [place] [address] Lymphocytes (Bld) [#/Vol] 1.71 10*3/uL Normal 1.16-3.51 [facility] Comment on above: Performed By: #### L [id number] ####[facility] (DEFAULT)[address] [place] [address] Lymphocytes/100 WBC (Bld) 30.4 % Normal [facility] Comment on above: Performed By: #### L [id number] ####[facility] (DEFAULT)[address] [place] [address] MCV (RBC) [Entitic vol] 90.0 fL Normal 79.6-97.7 [facility] Comment on above: Performed By: #### L [id number] ####[facility] (DEFAULT)[address] [place] [address] Mean Cell Hgb 28.1 pg Normal 25.9-33.9 [facility] Comment on above: Performed By: #### L [id number] ####[facility] (DEFAULT)[address] [place] [address] Mean Cell Hgb Conc 31.2 g/dL Low 31.4-35.9 [facility] Comment on above: Performed By: #### L [id number] ####[facility] (DEFAULT)[address] [place] [address] Monocytes (Bld) [#/Vol] 0.58 10*3/uL Normal 0.22-0.87 [facility] Comment on above: Performed By: #### L [id number] ####[facility] (DEFAULT)[address] [place] [address] Monocytes/100 WBC (Bld) 10.3 % Normal [facility] Comment on above: Performed By: #### L [id number] ####[facility] (DEFAULT)[address] [place] [address] Nucleated RBC 0.0 /100 WBC Normal <=0.2 [facility] Comment on above: Performed By: #### L [id number] ####[facility] (DEFAULT)[address] [place] [address] Platelet mean volume (Bld) [Entitic vol] 9.2 fL Normal 8.5-12.2 [facility] Comment on above: Performed By: #### L [id number] ####[facility] (DEFAULT)[address] [place] [address] Platelets (Bld) [#/Vol] 305 10*3/uL Normal 150-393 [facility] Comment on above: Performed By: #### L [id number] ####[facility] (DEFAULT)[address] [place] [address] RBC (Bld) [#/Vol] 4.38 10*6/uL Normal 3.91-5.04 [facility] Comment on above: Performed By: #### L [id number] ####[facility] (DEFAULT)[address] [place] [address] RBC Distribution 13.6 % Normal 10.8-14.9 [facility] Comment on above: Performed By: #### L [id number] ####[facility] (DEFAULT)[address] [place] [address] Segs + Bands Auto 56.3 % Normal [facility] Comment on above: Performed By: #### L [id number] ####[facility] (DEFAULT)[address] [place] [address] Segs + Bands,Absolute Auto 3.16 K/uL Normal 1.64-7.28 [facility] Comment on above: Performed By: #### L [id number] ####[facility] (DEFAULT)[address] [place] [address] WBC (Bld) [#/Vol] 5.62 10*3/uL Normal 3.99-11.19 [facility] Comment on above: Performed By: #### L [id number] ####[facility] (DEFAULT)[address] [place] [address] CHEM 7 (LYTES,BUN,CREA,GLUC) on 03-18-2024 Anion gap [Moles/Vol] 12 mmol/L Normal 7-17 [facility] Comment on above: Performed By: #### C HM7 ####[facility] (DEFAULT)[address] [place] [address] Chloride [Moles/Vol] 108 mmol/L Normal 98-108 [facility] Comment on above: Performed By: #### C HM7 ####[facility] (DEFAULT)[address] [place] [address] CO2 [Moles/Vol] 23 mmol/L Normal 21-31 [facility] Comment on above: Performed By: #### C HM7 ####[facility] (DEFAULT)[address] [place] [address] Creatinine [Mass/Vol] 0.47 mg/dL Low 0.50-1.20 [facility] Comment on above: Performed By: #### C HM7 ####[facility] (DEFAULT)[address] [place] [address] eGFR, CKD-EPI, Female > Normal >=60 [facility] Comment on above: Result Comment: Repo rted eGFR is based on the CKD-EPI 2020 equation using creatinine, age, and sex. Performed By: #### C HM7 ####[facility] (DEFAULT)[address] [place] [address] Glucose [Mass/Vol] 104 mg/dL High 70-99 [facility] Comment on above: Performed By: #### C HM7 ####[facility] (DEFAULT)[address] [place] [address] Osmolality [Osmolality] 291 mosm/kg Normal 278-305 [facility] Comment on above: Performed By: #### C HM7 ####[facility] (DEFAULT)[address] [place] [address] Potassium [Moles/Vol] 3.9 mmol/L [facility] 3.5-[facility] Comment on above: Performed By: #### C HM7 ####[facility] (DEFAULT)[address] [place] [address] Sodium [Moles/Vol] 139 mmol/L Normal 135-145 [facility] Comment on above: Performed By: #### C HM7 ####[facility] (DEFAULT)[address] [place] [address] Urea nitrogen [Mass/Vol] 13 mg/dL Normal 7-25 [facility] Comment on above: Performed By: #### C HM7 ####[facility] (DEFAULT)[address] [place] [address] Urea nitrogen/Creatinine [Mass ratio] 28 mg/mg Normal [facility] Comment on above: Performed By: #### C HM7 ####[facility] (DEFAULT)[address] [place] [address] MRI SPINE LUMBAR WITH AND WI THOUT CONTRASTon 03-18-2024 MRI SPINE LUMBAR WITH AND WITHOUT CONTRAST Normal [facility] ABORH TYPE RECONFIRMATIONon 03-17-2024 ABO/RH(D) TYPE AB POS Normal [facility] Comment on above: Performed By: #### T YPEC ####[facility] (DEFAULT)[address] [place] [address] CBC AND ELECTRONIC DIFFon Abs Baso Auto < Normal 0.00-0.15 [facility] Comment on above: Performed By: #### L [id number] ####[facility] (DEFAULT)[address] [place] [address] Basophils/100 WBC (Bld) 0.4 % Normal [facility] Comment on above: Performed By: #### L [id number] ####[facility] (DEFAULT)[address] [place] [address] DIFF STATUS Electronic Differential Normal [facility] Comment on above: Performed By: #### L [id number] ####[facility] (DEFAULT)[address] [place] [address] Eosinophils (Bld) [#/Vol] 0.09 10*3/uL Normal 0.00-0.42 [facility] Comment on above: Performed By: #### L [id number] ####[facility] (DEFAULT)[address] [place] [address] Eosinophils/100 WBC (Bld) 1.2 % Normal [facility] Comment on above: Performed By: #### L [id number] ####[facility] (DEFAULT)[address] [place] [address] Hematocrit (Bld) [Volume fraction] 41.4 % Normal 34.9-44.3 [facility] Comment on above: Performed By: #### L [id number] ####[facility] (DEFAULT)[address] [place] [address] Hemoglobin (Bld) [Mass/Vol] 13.6 g/dL Normal 11.4-15.2 [facility] Comment on above: Performed By: #### L [id number] ####[facility] (DEFAULT)[address] [place] [address] Immature Grans % 0.4 % Normal [facility] Comment on above: Performed By: #### L [id number] ####[facility] (DEFAULT)[address] [place], [place] [address], [place] [address] Immature Grans Absolute < Normal <=0.08 [facility] Comment on above: Performed By: #### L [id number] ####[facility] (DEFAULT)[address] [place] [address] Lymphocytes (Bld) [#/Vol] 1.62 10*3/uL Normal 1.16-3.51 [facility] Comment on above: Performed By: #### L [id number] ####[facility] (DEFAULT)[address] [place] [address] Lymphocytes/100 WBC (Bld) 20.8 % Normal [facility] Comment on above: Performed By: #### L [id number] ####[facility] (DEFAULT)[address] [place] [address] MCV (RBC) [Entitic vol] 87.0 fL Normal 79.6-97.7 [facility] Comment on above: Performed By: #### L [id number] ####[facility] (DEFAULT)[address] [place] [address] Mean Cell Hgb 28.6 pg Normal 25.9-33.9 [facility] Comment on above: Performed By: #### L [id number] ####[facility] (DEFAULT)[address] [place] [address] Mean Cell Hgb Conc 32.9 g/dL Normal 31.4-35.9 [facility] Comment on above: Performed By: #### L [id number] ####[facility] (DEFAULT)[address] [place] [address] Monocytes (Bld) [#/Vol] 0.58 10*3/uL Normal 0.22-0.87 [facility] Comment on above: Performed By: #### L [id number] ####[facility] (DEFAULT)[address] [place] [address], [place] [address] Monocytes/100 WBC (Bld) 7.4 % Normal [facility] Comment on above: Performed By: #### L [id number] ####[facility] (DEFAULT)[address] [place] [address] Nucleated RBC 0.0 /100 WBC Normal <=0.2 [facility] Comment on above: Performed By: #### L [id number] ####[facility] (DEFAULT)[address] [place] [address] Platelet mean volume (Bld) [Entitic vol] 9.5 fL Normal 8.5-12.2 [facility] Comment on above: Performed By: #### L [id number] ####[facility] (DEFAULT)[address] [place] [address] Platelets (Bld) [#/Vol] 383 10*3/uL Normal 150-393 [facility] Comment on above: Performed By: #### L [id number] ####[facility] (DEFAULT)[address] [place] [address] RBC (Bld) [#/Vol] 4.76 10*6/uL Normal 3.91-5.04 [facility] Comment on above: Performed By: #### L [id number] ####[facility] (DEFAULT)[address] [place] [address] RBC Distribution 13.6 % Normal 10.8-14.9 [facility] Comment on above: Performed By: #### L [id number] ####[facility] (DEFAULT)[address] [place] [address] Segs + Bands Auto 69.8 % Normal [facility] Comment on above: Performed By: #### L [id number] ####[facility] (DEFAULT)[address] [place] [address] Segs + Bands,Absolute Auto 5.45 K/uL Normal 1.64-7.28 [facility] Comment on above: Performed By: #### L [id number] ####[facility] (DEFAULT)[address] [place] [address] WBC (Bld) [#/Vol] 7.80 10*3/uL Normal 3.99-11.19 [facility] Comment on above: Performed By: #### L [id number] ####[facility] (DEFAULT)[address] [place] [address] CHEM 7 (LYTES,BUN,CREA,GLUC) on 03-17-2024 Anion gap [Moles/Vol] 14 mmol/L Normal 7-17 [facility] Comment on above: Performed By: #### C HM7 ####[facility] (DEFAULT)[address] [place] [address] Chloride [Moles/Vol] 104 mmol/L Normal 98-108 [facility] Comment on above: Performed By: #### C HM7 ####[facility] (DEFAULT)[address] [place] [address] CO2 [Moles/Vol] 24 mmol/L Normal 21-31 [facility] Comment on above: Performed By: #### C HM7 ####[facility] (DEFAULT)[address] [place] [address] Creatinine [Mass/Vol] 0.55 mg/dL Normal 0.50-1.20 [facility] Comment on above: Performed By: #### C HM7 ####[facility] (DEFAULT)[address] [place] [address] eGFR, CKD-EPI, Female > Normal >=60 [facility] Comment on above: Result Comment: Repo rted eGFR is based on the CKD-EPI 2020 equation using creatinine, age, and sex. Performed By: #### C HM7 ####[facility] (DEFAULT)[address] [place] [address] Glucose [Mass/Vol] 139 mg/dL High 70-99 [facility] Comment on above: Performed By: #### C HM7 ####[facility] (DEFAULT)[address] [place] [address] Osmolality [Osmolality] 293 mosm/kg Normal 278-305 [facility] Comment on above: Performed By: #### C HM7 ####[facility] (DEFAULT)[address] [place] [address] Potassium [Moles/Vol] 4.0 mmol/L Normal 3.5-5.0 [facility] Comment on above: Performed By: #### C HM7 ####[facility] (DEFAULT)[address] [place] [address] Sodium [Moles/Vol] 138 mmol/L Normal 135-145 [facility] Comment on above: Performed By: #### C HM7 ####[facility] (DEFAULT)[address] [place] [address] Urea nitrogen [Mass/Vol] 17 mg/dL Normal 7-25 [facility] Comment on above: Performed By: #### C HM7 ####[facility] (DEFAULT)[address] [place] [address] Urea nitrogen/Creatinine [Mass ratio] 31 mg/mg Normal [facility] Comment on above: Performed By: #### C HM7 ####[facility] (DEFAULT)[address] [place] [address] ECHOCARDIOGRAM LIMITED/FOLLO WUPon 03-17-2024 ECHOCARDIOGRAM LIMITED/FOLLOWUP Normal [facility] PT,INR,PTTon 03-17-2024 aPTT Coag (Bld) [Time] 22.9 s Low 24.0-34.3 [facility] Comment on above: Result Comment: Spec imen integrity checked. Performed By: #### P TPTT ####[facility] (DEFAULT)[address] [place] [address] INR Coag (PPP) [Relative time] 0.9 {INR} Normal 0.9-1.1 [facility] Comment on above: Performed By: #### P TPTT ####[facility] (DEFAULT)[address] [place] [address] PT Coag (PPP) [Time] 12.3 s Normal 11.9-14.2 [facility] Comment on above: Performed By: #### P TPTT ####[facility] (DEFAULT)[address] [place] [address] SCREEN: MRSA/MSSAon 03-17-20 Methicillin Resistant S. Aureus By Pcr Negative Normal Negative [facility] Comment on above: Order Comment: Anter ior nares:1 -2 cm (less than 1/2 inch) from inside each nostril.This test was performed using a real time PCR assay. Results should be interpreted in conjunction with other clinical and laboratory findings. A positive result does not necessarily indicate the presence of viable organism. This test should not be used as a test of cure. For E-swab specimens, this test was developed and its performance characteristics determined by the [facility] at [facility]. It has not been cleared or approved by the FDA.The laboratory is regulated under CLIA as qualified to perform high-complexity testing. This test is used for clinical purposes. It should not be regarded as investigational or for research. Performed By: #### S CRSB ####[facility] (DEFAULT)[address] [place] [address] Staphylococcus Aureus By Pcr Negative Normal Negative [facility] Comment on above: Order Comment: Anter ior nares:1 -2 cm (less than 1/2 inch) from inside each nostril.This test was performed using a real time PCR assay. Results should be interpreted in conjunction with other clinical and laboratory findings. A positive result does not necessarily indicate the presence of viable organism. This test should not be used as a test of cure. For E-swab specimens, this test was developed and its performance characteristics determined by the [facility] at [facility]. It has not been cleared or approved by the FDA.The laboratory is regulated under CLIA as qualified to perform high-complexity testing. This test is used for clinical purposes. It should not be regarded as investigational or for research. Performed By: #### S CRSB ####[facility] (DEFAULT)[address] [place] [address] TYPE AND SCREENon 03-17-2024 ABO/RH(D) TYPE AB POS Normal [facility] Comment on above: Performed By: #### X M ####[facility] (DEFAULT)[address] [place] [address] Outdate Specimen 03/20/2024 23:59 Normal [facility] Comment on above: Performed By: #### X M ####[facility] (DEFAULT)[address] [place] [address] XR CHEST 1 VIEW PORTABLEon 1 XR CHEST 1 VIEW PORTABLE Normal [facility] XR FEMUR LEFT 2+ VIEWSon XR FEMUR LEFT 2+ VIEWS Normal [facility] XR FEMUR RIGHT 2+ VIEWSon XR FEMUR RIGHT 2+ VIEWS Normal [facility] XR Femur - left Viewson 03-02 IMPRESSION: Metastatic lesion within the mid femoral diaphysis. 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 There is a lytic lesion within the mid femoral diaphysis which correlates with recent uptake on the PET scan. No pathologic fracture. Hip and knee joints are aligned. 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 There is a lytic lesion within the mid femoral diaphysis which correlates with recent uptake on the PET scan. No pathologic fracture. Hip and knee joints are aligned. IMPRESSION IMPRESSION: Metastatic lesion within the mid femoral diaphysis. No acute fracture [facility] Radiology Study observation (narrative) [facility] XR Femur - left ViewsOrdered By: Malgorzata Briggs on 03-17-2024 [facility] Work Phone: XR Femur - right Viewson IMPRESSION: Ill-defined lytic lesion within the proximal femur which correlates with the findings on the recent PET scan. 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 There is an ill-defined lytic lesion within the anterior lateral aspect proximal femur at the level of the lesser trochanter. There is subtle periostitis. No pathologic fracture. The hip and knee joints are aligned. 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 There is an ill-defined lytic lesion within the anterior lateral aspect proximal femur at the level of the lesser trochanter. There is subtle periostitis. No pathologic fracture. The hip and knee joints are aligned. IMPRESSION IMPRESSION: Ill-defined lytic lesion within the proximal femur which correlates with the findings on the recent PET scan. [facility] Radiology Study observation (narrative) [facility] XR Femur - right ViewsOrdere d By: Malgorzata Briggs on 03-17-2024 [facility] Work Phone: XR PELVIS 3+ VIEWSon 024 XR PELVIS 3+ VIEWS Normal [facility] XR Pelvis 3 Viewson 03-17-20 24 IMPRESSION: Diffuse metastatic disease within the lower lumbar spine, pelvic bones, ischial tuberosities and right pubic bone. 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 There are metastatic lesions within the L5 vertebral body and spinous process of L4 as well as both iliac bones greater on the right, ischial tuberosities and right pubic bone. These are better appreciated in detail on the PET scan. No definite pathologic fractures. Hip joints are aligned. Partial ankylosis of the right SI joint. 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 There are metastatic lesions within the L5 vertebral body and spinous process of L4 as well as both iliac bones greater on the right, ischial tuberosities and right pubic bone. These are better appreciated in detail on the PET scan. No definite pathologic fractures. Hip joints are aligned. Partial ankylosis of the right SI joint. IMPRESSION IMPRESSION: Diffuse metastatic disease within the lower lumbar spine, pelvic bones, ischial tuberosities and right pubic bone. No definite pathologic fractures [facility] Rad[facility]narrative) [facility] Pelvis 3 ViewsOrdered By: Malgorzata Briggs on 03-17-2024 [facility] Work Phone: XR SPINE LUMBAR 2-3 VIEWSon 03-17-2024 XR SPINE LUMBAR 2-3 VIEWS Normal [facility] Aerobic Cultureon 03-04-2024 Aerobic Culture No Growth 2 Days No Anaerobes Isolated 3 Days Gram Stain Result 2+ Red Blood Cells 1+ White Blood Cells No Bacteria Seen PERFORMED BY: [facility] [address] [place] [id number] PATHOLOGIST ARMHOLE RAISER LOCKSTITCH HILARIO BERNABE M.D. Normal [facility] Comment on above: Performed By: #### F L TP, FLCCDIFF, FL LDH, AERC, GS ####[facility] [place] [id number] [facility] Body fluid differential cell countOrdered By: Shahid Manzano on 03-04-2024 Differential panel (Body fld) 22 % [facility] Comment on above: The reference interv al and other method performance specifications have not been established for this body fluid. The test result must be integrated into the clinical context for interpretation. CELL COUNT/DIFF,FLUIDon 10-0 Body Fluid Source: P leural Fluid Body Fluid Site: RIGHT [facility] Cell Count/Diff, Fluidon APPEARANCE, FLUID Clear Normal [facility] Comment on above: The reference interv al and other method performance specifications have not been established for this body fluid. The test result must be integrated into the clinical context for interpretation. Order Comment: Body Fluid Source: Pleural Fluid Body Fluid Site: RIGHT Result Comment: The reference interval and other method performance specifications have not been established for this body fluid. The test result must be integrated into the clinical context for interpretation. Performed By: #### F L TP, FLCCDIFF, FL LDH, AERC, GS ####[facility] [place] [id number] [facility] COLOR, FLUID Yellow Normal [facility] Comment on above: The reference interv al and other method performance specifications have not been established for this body fluid. The test result must be integrated into the clinical context for interpretation. Order Comment: Body Fluid Source: Pleural Fluid Body Fluid Site: RIGHT Result Comment: The reference interval and other method performance specifications have not been established for this body fluid. The test result must be integrated into the clinical context for interpretation. Performed By: #### F L TP, FLCCDIFF, FL LDH, AERC, GS ####[facility] [place] [id number] [facility] COLOR, FLUID SUPERNATANT Yellow Normal [facility] Comment on above: The reference interv al and other method performance specifications have not been established for this body fluid. The test result must be integrated into the clinical context for interpretation. Order Comment: Body Fluid Source: Pleural Fluid Body Fluid Site: RIGHT Result Comment: The reference interval and other method performance specifications have not been established for this body fluid. The test result must be integrated into the clinical context for interpretation. Performed By: #### F L TP, FLCCDIFF, FL LDH, AERC, GS ####[place] [address] [place] [id number] [facility] EOSINOPHILS, FLUID 0 /100{WBC} Normal 0-3 [facility] Comment on above: Order Comment: Body Fluid Source: Pleural Fluid Body Fluid Site: RIGHT Result Comment: PERF ORMED BY: [facility] [address] [place] [id number] PATHOLOGIST ARMHOLE RAISER LOCKSTITCH HILARIO BERNABE M.D. Performed By: #### F L TP, FLCCDIFF, FL LDH, AERC, GS ####[place] [address] [place] [id number] [facility] LYMPHOCYTES, FLUID 78 % Normal [facility] Comment on above: The reference interv al and other method performance specifications have not been established for this body fluid. The test result must be integrated into the clinical context for interpretation. Order Comment: Body Fluid Source: Pleural Fluid Body Fluid Site: RIGHT Result Comment: The reference interval and other method performance specifications have not been established for this body fluid. The test result must be integrated into the clinical context for interpretation. Performed By: #### F L TP, FLCCDIFF, FL LDH, AERC, GS ####[facility] [place] [address] [facility] MONOCYTES/MACROPHAGES, FLUID 22 % Normal [facility] Comment on above: The reference interv al and other method performance specifications have not been established for this body fluid. The test result must be integrated into the clinical context for interpretation. Order Comment: Body Fluid Source: Pleural Fluid Body Fluid Site: RIGHT Result Comment: The reference interval and other method performance specifications have not been established for this body fluid. The test result must be integrated into the clinical context for interpretation. Performed By: #### F L TP, FLCCDIFF, FL LDH, AERC, GS ####[place] [address] [place] [id number] [facility] NEUTROPHIL, FLUID 0 % Normal [facility] Comment on above: The reference interv al and other method performance specifications have not been established for this body fluid. The test result must be integrated into the clinical context for interpretation. Order Comment: Body Fluid Source: Pleural Fluid Body Fluid Site: RIGHT Result Comment: The reference interval and other method performance specifications have not been established for this body fluid. The test result must be integrated into the clinical context for interpretation. Performed By: #### F L TP, FLCCDIFF, FL LDH, AERC, GS ####[place] [address] [place] [id number] [facility] RBC, FLUID 3994 Normal [facility] Comment on above: The reference interv al and other method performance specifications have not been established for this body fluid. The test result must be integrated into the clinical context for interpretation. Order Comment: Body Fluid Source: Pleural Fluid Body Fluid Site: RIGHT Result Comment: The reference interval and other method performance specifications have not been established for this body fluid. The test result must be integrated into the clinical context for interpretation. Performed By: #### F L TP, FLCCDIFF, FL LDH, AERC, GS ####[place] [address] [place] [id number] [facility] TNC, BODY FLUID 1688 Normal [facility] Comment on above: The reference interv al and other method performance specifications have not been established for this body fluid. The test result must be integrated into the clinical context for interpretation. Order Comment: Body Fluid Source: Pleural Fluid Body Fluid Site: RIGHT Result Comment: The reference interval and other method performance specifications have not been established for this body fluid. The test result must be integrated into the clinical context for interpretation. Performed By: #### F L TP, FLCCDIFF, FL LDH, AERC, GS ####[facility] [address] [place] [id number] [facility] Cells Counted Total [#] in B letty fluidOrdered By: Shahid Manzano on 03-04-2024 Cells Counted Total (Body fld) [#] 1688 mm^3 [facility] Comment on above: The reference interv al and other method performance specifications have not been established for this body fluid. The test result must be integrated into the clinical context for interpretation. Color of Spun Body fluidOrde red By: Shahid Manzano on 03-04-2024 Color (Spun body fld) Yellow [facility] Comment on above: The reference interv al and other method performance specifications have not been established for this body fluid. The test result must be integrated into the clinical context for interpretation. Determination of appearance of body fluidOrdered By: Shahid Manzano on 03-04-2024 Appearance (Body fld) Clear [facility] Comment on above: The reference interv al and other method performance specifications have not been established for this body fluid. The test result must be integrated into the clinical context for interpretation. Erythrocytes [#/volume] in B letty fluid by Automated countOrdered By: Shahid Manzano on 03-04-2024 RBC Auto (Body fld) [#/Vol] 3994 mm^3 [facility] Comment on above: The reference interv al and other method performance specifications have not been established for this body fluid. The test result must be integrated into the clinical context for interpretation. Evaluation of color of body fluidOrdered By: Shahid Manzano on 03-04-2024 Color (Body fld) Yellow [facility] Comment on above: The reference interv al and other method performance specifications have not been established for this body fluid. The test result must be integrated into the clinical context for interpretation. Gram Stainon 03-04-2024 Microscopic observation Gram stain Nom (Unsp spec) Gram Stain Result 2+ Red Blood Cells 1+ White Blood Cells No Bacteria Seen PERFORMED BY: [facility] [address] [place] [phone] PATHOLOGIST ARMHOLE RAISER LOCKSTITCH HILARIO BERNABE M.D. Normal [facility] Comment on above: Performed By: #### F L TP, FLCCDIFF, FL LDH, AERC, GS ####[facility] [address] [place] [address] [facility] Gram stainon 03-04-2024 Interpretation and review of laboratory results Abnormal [facility] Microscopic observation Gram stain Nom (Unsp spec) 2+ Red Blood Cells Abnormal [facility] Microscopic observation Gram stain Nom (Unsp spec) 1+ White Blood Cells Abnormal [facility] Microscopic observation Gram stain Nom (Unsp spec) No Bacteria Seen [facility] Gram stain for investigation of transfusion reactionOrdered By: Shahid Manzano on 03-04-2024 Microscopic observation Gram stain Nom (Unsp spec) [facility] Microscopic observation Gram stain Nom (Unsp spec) No Anaerobes Isolated 3 Days [facility] Atul 03-04-2024 L Specimen: [id number] Received: 03/08/24 Status: ALYSSA Bray Num: [id number] Spec Type: Cytology Subm Dr: Shahid Manzano DO Tissues: A PLEURAL FLUID (PLEU) Procedures: HE/2, Gross/Micro L4, ER, NY, Cyto Prepstain, GATA3, PAPSTN Age/ Patient Sex Location Account Attending Physician Tiny Marte 63/F [facility] [id number] Shahid Manzano DO SPEC NUM: [id number] RECD: 03/08/24 STATUS: ALYSSA BRAY NUM: [id number] PARI: 03/04/[address]: Shahid Manzano DO ENTERED: 03/08/[address]: [facility]ad [facility] Neel [place] MD SPEC TYPE: Cytology DEPT: CNG ENTERED BY: [id number] RECV BY: [id number] ORDERED: HE/2, Gross/Micro L4, ER, NY, Cyto Prepstain, GATA3, PAPSTN ORDERED: HE/2, Gross/Micro L4, ER, NY, Cyto Prepstain, GATA3, PAPSTN Pathological Diagnosis Right thoracocentesis fluid, cytology: -Metastatic carcinoma of breast, 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 ThinPrep and cell block preparations are prepared for microscopic examination. (CC/nh) Specimen: [id number] Received: 03/08/24 Status: ALYSSA Ariaselyse Num: [id number] Spec Type: Cytology Subm Dr: Shahid Manzano DO Tissues: A PLEURAL FLUID (PLEU) Procedures: HE/2, Gross/Micro L4, ER, NY, Cyto Prepstain, GATA3, PAPSTN Patient: MarteTiny [id number] (Continued) Specimen: [id number] Received: 03/08/24 (Continued) Signed (signature on file) Сергей Cohen MD 03/11/24 1531 Specimen: [id number] Received: 03/08/24 Status: ALYSSA Bray Num: [id number] Spec Type: Cytology Subm Dr: Shahid Manzano DO Tissues: A PLEURAL FLUID (PLEU) Procedures: HE/2, Gross/Micro L4, ER, NY, Cyto Prepstain, GATA3, PAPSTN Patient: Tiny Marte [id number] (Continued) Specimen: [id number] Received: 03/08/24 (Continued) Microscopic Description Microscopic examinations are performed supporting the above interpretation CPT Codes [id number] Specimen: [id number] Received: 03/08/24 Status: ALYSSA Bray Num: [id number] Spec Type: Cytology Subm Dr: Shahid Manzano DO Tissues: A PLEURAL FLUID (PLEU) Procedures: HE/2, Gross/Micro L4, ER, [place], Cyto Prepstain, GATA3, PAPSTN Patient: Tiny Marte [id number] (Continued) Signed (signature on file) Сергей Cohen MD 03/11/24 1531 Normal [facility] LDH, Fluidon 03-04-2024 LDH, FLUID 150 [IU]/mL Normal [facility] Comment on above: No reference range e stablished Order Comment: Body Fluid Source: Pleural Fluid Body Fluid Site: RIGHT Result Comment: No r eference range established Performed By: #### F L TP, FLCCDIFF, FL LDH, AERC, GS #### [facility] [address] Lactate dehydrogenase [Enzym atic activity/volume] in Body fluid by Lactate to pyruvatOrdered By: Shahid Manzano on 03-04-2024 LDH Lactate to pyruvate reaction (Body fld) [Catalytic activity/Vol] 150 [IU]/mL [facility] Comment on above: No reference range e stablished Manual body fluid eosinophil s/100 leukocytesOrdered By: Shahid Manzano on 03-04-2024 Eosinophils/100 WBC Manual cnt (Body fld) 0 /100{WBC} 0-3 [facility] Manual body fluid lymphocyte s/100 leukocytesOrdered By: Shahid Manzano on 03-04-2024 Lymphocytes/100 WBC Manual cnt (Body fld) 78 % [facility] Comment on above: The reference interv al and other method performance specifications have not been established for this body fluid. The test result must be integrated into the clinical context for interpretation. Neutrophils/100 WBC Manual c nt (Body fld)Ordered By: Shahid Manzano on 03-04-2024 Neutrophils/100 WBC (Body fld) 0 % [facility] Comment on above: The reference interv al and other method performance specifications have not been established for this body fluid. The test result must be integrated into the clinical context for interpretation. No Panel Informationon 03-04 Body Fluid Source: P leural Fluid Body Fluid Site: RIGHT [facility] Protein [Mass/volume] in Bod y fluidOrdered By: Shahid Manzano on 03-04-2024 Protein (Body fld) [Mass/Vol] 4.2 g/dL [facility] Total Protein, Fluidon 03-04 TOTAL PROTEIN, FLUID 4.2 g/dL Normal [facility] Comment on above: Order Comment: Body Fluid Source: Pleural Fluid Body Fluid Site: RIGHT Result Comment: PERF ORMED BY: [facility] [address] [place] [address] PATHOLOGIST ARMHOLE RAISER LOCKSTITCH HILARIO BERNABE M.D. Performed By: #### F L TP, FLCCDIFF, FL LDH, AERC, GS ####[facility] [id number] [place] [address] [facility] Office Visiton 03-03-2024 Follow-up visit [id number] Jesus 1960 F Date Provider Department Center 03/03/2024 MATTEO WISDOM CORNELL Smith Family History Problem Relation Age of Onset Heart failure Mother Atrial fibrillation Mother Coronary artery disease Father Other Father Family Status - Relation Status Age at Mother Father Level of Service:[address]2007 [place] OFFICE/OUTPATIENT NEW MODERATE MDM 45 MINUTES Normal [facility] PET CT TOTAL BODYon 02-27-[address] TOTAL BODY PET CT TOTAL BODY PET/CT whole body COMPARISON: None HISTORY: Breast cancer. TECHNIQUE: 16.1 mCi FDG injected intravenously without reported complication. Patient's glucose level at the time of injection slightly elevated at 113 mg/dL. After appropriate delay, fused PET/CT images obtained from skull base to mid thigh. CT was performed utilizing free breathing technique and nondiagnostic collimation for the purposes attenuation correction and localization of radiotracer activity. FINDINGS: Abnormal study widespread metastatic disease is confirmed. Metabolically active cristal disease is appreciated in the right supraclavicular fossa and bilaterally just inferior to the thyroid gland. Metabolically active metastatic cristal disease is appreciated in the superior mediastinum as well as the middle mediastinum. Metabolically active abnormal lymph nodes are appreciated in the retroperitoneum Extensive skeletal metastatic deposits are appreciated. This is seen in the spinous process of C2 and the posterior left lamina of C7. There is involvement in the thoracic spine as well as ribs. Metabolic activity in the posterior right pleura is noted and there appears to be some nodularity to the right pleura. Pleural involvement is not excluded. Large right pleural effusion is noted. There is involvement the lumbar spine, destructive lesions in both posterior iliac bones are appreciated. Deposits in both ischial tuberosities are noted. Destructive lesion is appreciated in the anterior cortex of the subcutaneous trochanteric right femur. Deposit in the right pubic body is also noted. Metastatic deposit in the femoral diaphysis of the left femur is appreciated. No definite activity is appreciated in the tibia or fibula. IMPRESSION: Metastatic disease is confirmed to the lymphatic system and skeleton as detailed above. Large right pleural effusion is appreciated. Abnormal metabolic activity in the right pleura is appreciated. Continued follow-up is requested. All CT scans at this facility use dose modulation, iterative reconstruction, and/or weight based dosing when appropriate to reduce radiation dose to as low as reasonably achievable. Finalized by Leny Resendiz MD on 02/27/2024 1:39 PM Normal [facility] CNPMalena 02-13-2024 CNPN Telephone (NCCAP) -- TINY MARTE ([id number]) 1960 F Date Time Provider Department 02/13/24 MARK ANTHONY PATTON NCCDEON During your visit today, we recorded the following information about you: Grace Falk RN 02/13/2024 11:37 AM Signed Call rec'd from Curtis Aguirre, [facility]. Pt seen in December [...] to see pt today. Sy Barker, nurse manager vehicle aware and will have team call to schedule. Nury Bass to obtain records and imaging. SHANNON Rand Amy S 02/13/2024 10:06 AM Signed Patient has [place] Plan-Needs to speak to a PFA before she can be scheduled with Dr Patton. Patient is wanting to get a PET scan done at [facility]. Grace Bonner RN 02/13/2024 11:37 AM Signed Cipriano [...] PFA on 02/16/2024 at 3 pm. Leny Combs Mark Anthony Arroyo MD 02/13/2024 12:41 PM Signed Thanks - I will call her later. Grace Falk RN 02/13/2024 1:15 PM Signed PET order faxed to [facility]; [phone]. SHANNON Rand Natalie, RN 02/16/2024 2:12 PM Signed Curtis called to check status of pt. She is aware pt meeting with PFA today. Dr Coleman discussed CT reports with pt Friday. PET sent to [facility]. Curtis called to verify receipt of PET order to schedule. [facility] uses [facility]. #[phone]. I called to see if order sent by [facility]. No order or pt information in their system. Faxed order, face sheet, insurance information and copy of CT report to [phone], as requested. They will review and call pt to schedule. SHANNON Rand Jodi 02/19/2024 8:48 AM Signed Spoke to patient, she spoke to her insurance and the scan is covered under her insurance at [facility]. I faxed over the order for them to get her scheduled. Faxed to [phone] Phone is [phone] Spoke to Marie Dubose 02/23/2024 1:36 PM Signed [facility] called, checking on phone numbers. They were having trouble calling patient to get her scheduled for her PET Marie Arboleda 02/27/2024 9:19 AM Signed PET confirmed scheduled for 02/27/24 11:00am. Grace Falk RN 02/27/2024 12:01 PM Signed Nury: please watch for PET results SHANNON Rand Jennifer L 02/27/2024 1:52 PM Signed Report is available in Epic now. I will request the images. Grace Falk RN 02/27/2024 2:32 PM Signed Cipriano reviewing PET. Pt notified he will call her this weekend with results/plan of care. SHANNNO Rand Vivek, MD 02/28/2024 8:16 AM Signed I spoke with her and reviewed everything. She will need to see someone in a larger institution wherever her coverage allows her. Will probably need radiation to several critical bone lesions. She will need pleural effusion tapped off and sent for cytology. She may need one biopsy - should see Ortho-oncology if available. I recommended that she seek care in an ER if she begins having even early signs of distress or a change in bone pain. Grace Falk RN 03/01/2024 8:14 AM Signed Addended by: GRACE FALK on: 03/01/2024 08:14 AM Modules accepted: Grace Samuel RN 03/01/2024 8:38 AM Signed Hem/Onc referral pended for [facility], [facility]c [facility] to [facility] for multiple bone mets Rad Onc referral to [facility] Cipriano: Referrals pended for [facility], please sign referrals Nury/Zak: please send referrals to [facility] per orders Spoke with Curtis Aguirre NP she has referred pt to Pulmonology ([facility]) and Cardiology (). Pt has appts scheduled this week (pleural effusion) SHANNON Rand Natalie, RN 03/01/2024 8:38 AM Signed Addended by: GRACE FALK on: 03/01/2024 08:38 AM Modules accepted: Marlena Liang 03/01/2024 11:28 AM Signed Called [facility] spoke with Nguyễn. Per Nguyễn for all 3 referrals we need to fax our cover sheet stating all 3 referrals and faxing this along with all 3 orders, demo sheet and records. Fax to [phone]. Nury: Information ready for you. Mark Anthony Nazario MD 03/01/2024 6:01 PM Signed Signed - Mark Anthony Jay MD 03/01/2024 6:01 PM Signed Addended by: MARK ANTHONY PATTON on: 03/01/2024 06:01 PM Modules accepted: Orders Becky Miranda 03/02/2024 8:49 AM Signed Records and referrals faxed to [facility]. Rui Reich (more content not included)... Normal [facility] CNOVSPon 11-19-2023 CNOVSP Visit (SP) Office (Zack CASSIDY) -- TINY MARTE ([id number]) 1960 F Date Time Provider Department 11/19/23 10:15 AM MARK ANTHONY PATTON During your visit today, we recorded the following information about you: Temperature Pulse Respiration Blood pressure 97.4 degrees 66/minute 16/minute 140/77 Weight Height 64.3 kg 1.64 m Heavnely Trejo MA 11/19/2023 10:13 AM Signed Patient had labs at [facility] they are in Care Everywhere. LUCRECIA Song Vivek, MD 11/19/2023 7:40 PM Signed NAME: Tiny Marte CLINIC NO.: [id number] DATE OF SERVICE: November 19, 2023 (Abdi) Some elements in this clinic note that are critical to medical decision making have been carefully reviewed and included from a prior clinic note dated: May 15, 2023 (Abdi) Referring Provider: Dr. 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 ER positive and [place] and HER-2/adalberto were both negative. She completed [...] December 2023 - patient will call. (At [facility]) next DXA in 11/2024 DXA ordered, reschedule to 11/2024 at [facility]. HPI: CASE HISTORY: Reverse Chronological Order [...] right breast. 08/26/2019 - Bilateral diagnostic mammography: [facility]. Right breast with mild architectural [...] with Garrett Tumor markers check 11/13/2023 at [facility] were normal All labs normal aside rom lipids and fasting blood sugars. She's doing well otherwise. Brought her mom home with Hospice due to general failure to thrive and dementia. Chaperoned Breast Exam November 19, 2023 (Nico Pina) : Right breast is soft with prior reconstruction, Left breast is also soft with prior reconstruction and also with cancer resection. Cristal exam is negative. Updated Visit, May 15, 2023: Delia returns today with Garrett. She is doing fine with the Anastrozole, other than feeling much more fatigued the past few months. I would advise her to hold the Anastrozole for 2 weeks to see if there is improvement, and if none she can restart it after that. 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 Normal [facility] David 07-15-2023 KAMILAN Telephone (JAIMEE) -- TINY MARTE ([id number]) 1960 F Date Time Provider Department 07/15/23 GRACE FALK During your visit today, we recorded the following information about you: Grace Falk RN 07/15/2023 3:26 PM Signed Pt sent MyChart with Door Attendant information: The radio communications superintendent is Dr Aidan Resendiz, phone is [phone] email is [email or web address] I have another consultation with him on [...] know if you would like any changes. Mark Anthony Patton MD 07/15/2023 6:41 PM Signed She can proceed from my standpoint as long as you take precautions in wound healing for her jaw which I'm sure you're aware of. Just add that line and should be great - Thanks! Grace Falk RN 07/16/2023 9:26 AM Signed Note completed, review and signed. Faxed to Dr Resendiz office. Grace Falk RN Allergies As of Date: 07/15/2023 Noted Allergy Reaction ADHESIVE TAPE-SILICONES 09/20/2019 2 - Rash 9 - Itching CODEINE 08/26/2019 11 - Vomiting Date Reviewed: 05/15/2023 Reviewed by: Paulina Fry - Fully Assessed Reason for Visit: Door Attendant [Other] Prescriptions as of 07/16/2023 - anastrozole [...] breast (HCC) *10/07/2019 Other osteoporosis without current pathological*01/01/2021 Letter Text Encounter Status:Closed by GRACE FALK on 07/16/23 [facility] CNOVSPon 05-15-2023 CNOVSP Visit (SP) Office ( KHANH) -- TINY MARTE ([id number]) 1960 F Date Time Provider Department 05/15/23 10:30 AM MARK ANTHONY PATTON During your visit today, we recorded the following information about you: Temperature Pulse Respiration Blood pressure 97.8 degrees 71/minute 18/minute 137/89 Weight Height 68.2 kg 1.64 m Mark Anthony Patton MD 05/15/2023 8:36 PM Signed NAME: Tiny Marte CLINIC NO.: [id number] DATE OF SERVICE: May 15, 2023 (Abdi) Some elements in this clinic note that are critical to medical decision making have been carefully reviewed and included from a prior clinic note dated: November 14, 2022 (Abdi) Referring Provider: Dr. 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 ER positive and [place] and HER-2/adalberto were both negative. She completed [...] 12/2023 DXA ordered, scheduled for 12/2023 at [facility]. HPI: Case History: 06/05/2020- 11/13/2020: adjuvant [...] the right breast. 08/26/2019 bilateral diagnostic mammography: [facility]. Right breast with mild architectural [...] restart it after that. 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 Normal [facility] David 05-15-2023 CNPN Telephone (NCCAP) -- MARTETINY TRAN ([id number]) 1960 F Date Time Provider Department 05/15/23 MARK ANTHONY PATTON During your visit today, we recorded the following information about you: Lamont Christine 05/15/2023 11:29 AM Signed DXA ordered, scheduled for 12/2023 at [facility]. CIPRIANO: Patient just had a DEXA scan this year, November 2022 so she will not be due until 2024 - also insurances typically only cover every 2 years. Is there a reason we are doing earlier? Also, patient would like her labs drawn at [facility] prior to 6 month follow up due to insurance purposes. Can you please place her labs orders and I will have those mailed to her? Thanks! Mark Anthony Mckenzie MD 05/15/2023 1:04 PM Signed Orders entered! thanks Lamont Christine 05/15/2023 4:42 PM Signed OK for DEXA to be 2024 or is she having something new going on where it needs sooner? Mark Anthony Mckenzie MD 05/15/2023 4:54 PM Signed Sorry - 2024 is good Lmaont Christine 05/16/2023 10:05 AM Signed Patient notified [...] [M81.8] Order(s):COMP METABOLIC PANEL [SQCMP] Order #: [id number] FUTURE CBC + DIFF [SQCBCDIF] Order #: [id number] FUTURE CA 15-3 BLD [OPIW830] Order #: [id number] FUTURE CA 27.29 BLOOD [CUFN8021] Order #: [id number] FUTURE VITAMIN D 25 HYDROXY [SQVITD] Order #: [id number] FUTURE Prescriptions as of 05/16/2023 - anastrozole [...] breast (HCC) *10/07/2019 Other osteoporosis without current pathological*01/01/2021 Encounter Status:Closed by LAMONT CHRISTINE on 05/16/23 Normal [facility] PAP ACOG PANEL 2: 30 to 65on 09-05-2022 . . Normal [facility] Comment on above: Result Comment: Perf ormed at: WB Performed By: #### [id number] #### [facility] [address] [address] [address] Shashi Cohen Age Gdln ACOG Testing 30-65 Normal [facility] Comment on above: Performed By: #### 4 [id number] #### [facility] [address] [address] [address] Shashi Cohen DIAGNOSIS: Comment [facility] Comment on above: Result Comment: NEGA TIVE FOR INTRAEPITHELIAL LESION OR MALIGNANCY. Performed at: WB Performed By: #### [id number] #### [facility] [address] [place] [address] Dr. Shashi Cohen HPV Aptima Negative Normal Negative [facility] Comment on above: Result Comment: This nucleic acid amplification test detects fourteen high-risk HPV types (16,18,31,33,35,39,45,51,52,56,58,59,66,68) without differentiation. Performed at: =G Performed By: #### [id number] #### [facility] [address] [place] [address] Dr. Shashi Cohen HPV Genotype Reflex Comment Normal [facility] Comment on above: Result Comment: Crit eria not met, HPV Genotype not performed. Performed at: WB Performed By: #### 4 [id number] #### [facility] [address] [place] [address] Dr. Shashi Cohen Methodology: Comment Normal [facility] Comment on above: Result Comment: This liquid based ThinPrep(R) pap test was screened with the use of an image guided system. Performed at: WB Performed By: #### 4 [id number] #### [facility] [address] [place] [address] Dr. Shashi Cohen Note: Comment Normal [facility] Comment on above: Result Comment: The Pap smear is a screening test designed to aid in the detection of premalignant and malignant conditions of the uterine cervix. It is not a diagnostic procedure and should not be used as the sole means of detecting cervical cancer. Both false-positive and false-negative reports do occur. . Performed at: WB Performed By: #### [id number] #### [facility] [address] [place] [address] Dr. Shashi Cohen Performed by: Comment Normal [facility] Comment on above: Result Comment: Sujata Shahid Family Service Worker (ASCP) Performed at: WB Performed By: #### 4 [id number] #### [facility] [address] [place] [address] Dr. Shashi Cohen Specimen adequacy: Comment Normal [facility] Comment on above: Result Comment: Sati sfactory for evaluation. Performed at: WB Performed By: #### 4 [id number] #### [facility] [address] [place] [address] Dr. Shashi Cohen CBC AUTO DIFFon 08-29-2022 BASO # 0.0 103/ul Normal 0.0-0.1 [facility] Comment on above: Performed By: #### C BC #### [facility] [address] [place] [address] Dr. Shashi Cohen Basophils/100 WBC (Bld) 0.7 % Normal 0.2-2.0 [facility] Comment on above: Performed By: #### C BC #### [facility] [address] [place] [address] Dr. Shashi Cohen EO # 0.1 103/ul Normal 0.0-0.7 [facility] Comment on above: Performed By: #### C BC #### [facility] [address] [place] [address] Dr. Shashi Cohen Eosinophils/100 WBC (Bld) 1.4 % Normal 0.9-7.0 [facility] Comment on above: Performed By: #### C BC #### [facility] [address] [place] [address] Dr. Shashi Cohen Erythrocyte distribution width (RBC) [Ratio] 13.7 % Normal 11.0-15.0 [facility] Comment on above: Performed By: #### C BC #### [facility] [address] [place] [address] Dr. Shashi Cohen Hematocrit (Bld) [Volume fraction] 43.9 % Normal 36.0-48.0 [facility] Comment on above: Performed By: #### C BC #### [facility] [address] [place] [address] Dr. Shashi Cohen Hemoglobin (Bld) [Mass/Vol] 14.1 g/dL Normal 12.0-16.0 [facility] Comment on above: Performed By: #### C BC #### [facility] [address] [place] [address] Dr. Shashi Cohen IG # 0.02 10e3/ul Normal 0.00-0.03 [facility] Comment on above: Performed By: #### C BC #### [facility] [address] [place] [address] Dr. Shashi Cohen IG % 0.4 % Normal 0.0-0.5 [facility] Comment on above: Performed By: #### C BC #### [facility] [address] [place] [address] Dr. Shashi Cohen LYMPH # 1.9 103/ul Normal 1.2-3.8 [facility] Comment on above: Performed By: #### C BC #### [facility] [address] [place] [address] Dr. Shashi Cohen Lymphocytes/100 WBC (Bld) 33.2 % Normal 20.5-60.0 [facility] Comment on above: Performed By: #### C BC #### [facility] [address] [place] [address] Dr. Shashi oChen MANUAL DIFF REQ NO Normal [facility] Comment on above: Performed By: #### C BC #### [facility] [address] [place] [address] Dr. Shashi Cohen MCH (RBC) [Entitic mass] 28.7 pg Normal 26.7-34.0 [facility] Comment on above: Performed By: #### C BC #### [facility] [address] [place] [address] Dr. Shashi Cohen MCHC (RBC) [Mass/Vol] 32.1 g/dL Normal 29.9-35.2 [facility] Comment on above: Performed By: #### C BC #### [facility] [address] [place] [address] Dr. Shashi Cohen MCV (RBC) [Entitic vol] 89.2 fL Normal 81.0-99.0 [facility] Comment on above: Performed By: #### C BC #### [facility] [address] [place] [address] Dr. Shashi Cohen MONO # 0.5 103/ul Normal 0.3-0.8 [facility] Comment on above: Performed By: #### C BC #### [facility] [address] [place] [address] Dr. Shashi Cohen Monocytes/100 WBC (Bld) 8.8 % Normal 1.7-12.0 [facility] Comment on above: Performed By: #### C BC #### [facility] [address] [place] [address] Dr. Shashi Cohen NEUT # 3.1 103/ul Normal 1.4-6.5 [facility] Comment on above: Performed By: #### C BC #### [facility] [address] [place] [address] Dr. Shashi Cohen Neutrophils/100 WBC (Bld) 55.5 % Normal 43.0-75.0 [facility] Comment on above: Performed By: #### C BC #### [facility] [address] [place] [address] Dr. Shashi Cohen Platelet mean volume (Bld) [Entitic vol] 9.9 fL Normal 9.5-13.5 [facility] Comment on above: Performed By: #### C BC #### [facility] [address] [place] [address] Dr. Shashi Cohen PLT 244 103/ul Normal 150-450 [facility] Comment on above: Performed By: #### C BC #### [facility] [address] [place] [address] Dr. Shashi Cohen RBC 4.92 106/ul Normal 4.20-5.40 [facility] Comment on above: Performed By: #### C BC #### [facility] [address] [place] [address] Dr. Shashi Cohen WBC 5.6 103/ul Normal 4.0-11.0 [facility] Comment on above: Performed By: #### C BC #### [facility] [address] [place] [address] Dr. Shashi Cohen GLYCOHEMOGLOBIN A1Con 2022 ADA RECOMMENDATION SEE BELOW Normal [facility] Comment on above: Result Comment: ADA RECOMMENDED LIMIT 4.0 - 6.0 ADA THERAPEUTIC TARGET < 7.0 ACTION SUGGESTED > 7.0 Performed By: #### A 1C ####[facility] [address] [place], [place] [address]GtDr. Shashi Cohen Glucose [Mass/Vol] 126 mg/dL Normal [facility] Comment on above: Performed By: #### A 1C ####[facility] [address] [place], [place] [address]NmDr. Shashi Cohen HbA1c (Bld) [Mass fraction] 6.0 % Normal 4.5-6.2 [facility] Comment on above: Performed By: #### A 1C ####[facility] [address] [place], [place] [address]UqDr. Shashi Cohen LIPID PROFILEon 08-29-2022 CHOL-HDL RATIO NORM SEE BELOW Normal [facility] Comment on above: Result Comment: 3.3 - 4.4 LOW RISK 4.4 - 7.1 AVERAGE RISK 7.1 - 11.0 MODERATE RISK >11.0 HIGH RISK Performed By: #### T SH, CMP, LIPID #### [facility] [address] [address] [address] Shashi Cohen Cholesterol [Mass/Vol] 186 mg/dL Normal <=200 [facility] Comment on above: Performed By: #### T SH, CMP, LIPID #### [facility] [address] [address] [address] Shashi Cohen Cholesterol in HDL [Mass/Vol] 43 mg/dL Normal 40-60 [facility] Comment on above: Performed By: #### T SH, CMP, LIPID #### [facility] [address] [address] [address] Shashi Cohen Cholesterol in LDL [Mass/Vol] 129.2 mg/dL Normal [facility] Comment on above: Performed By: #### T SH, CMP, LIPID #### [facility] [id number] Shashi Cohen Cholesterol.total/Chol esterol in HDL [Mass ratio] 4.3 {ratio} Normal [facility] Comment on above: Performed By: #### T SH, CMP, LIPID #### [facility] [id number] Shashi Cohen HDL NORMAL > or = 60 mg/dl - LO W CARDIOVASCULAR RISK <40 mg/dl - HIGH CARDIOVASCULAR RISK Normal [facility] Comment on above: Performed By: #### T SH, CMP, LIPID #### [facility] [address] [address] [address] Shashi Cohen LDL CALC NORMAL SEE BELOW Normal [facility] Comment on above: Result Comment: <100 mg/dl OPTIMAL 100 - 129 mg/dl NEAR OR ABOVE OPTIMAL 130 - 159 mg/dl BORDERLINE HIGH 160 - 189 mg/dl HIGH >190 mg/dl VERY HIGH Performed By: #### T SH, CMP, LIPID #### [facility] [address] [address] [address] Shashi Cohen Triglyceride [Mass/Vol] 69 mg/dL Normal <=150 [facility] Comment on above: Performed By: #### T SH, CMP, LIPID #### [facility] [address] [address] [address] Shashi Cohen VLDL CALC 13.8 mg/dL Normal [facility] Comment on above: Performed By: #### T SH, CMP, LIPID #### [facility] [address] [address] [address] Shashi Cohen PROF 14(COMP METB)on 023 Albumin [Mass/Vol] 3.9 g/dL Normal 3.4-5.0 [facility] Comment on above: Performed By: #### T SH, CMP, LIPID #### [facility] [address] [address] [address] Shashi Cohen Albumin/Globulin [Mass ratio] 1.1 {ratio} Normal [facility] Comment on above: Performed By: #### T SH, CMP, LIPID #### [facility] [address] [address] [address] Shashi Cohen ALP [Catalytic activity/Vol] 63 U/L Normal 46-116 [facility] Comment on above: Performed By: #### T SH, CMP, LIPID #### [facility] [address] [address] [address] Shashi Cohen ALT [Catalytic activity/Vol] 23 U/L Normal 14-59 [facility] Comment on above: Performed By: #### T SH, CMP, LIPID #### [facility] [address] [address] [address] Shashi Cohen Anion gap [Moles/Vol] 15.6 mmol/L Normal [facility] Comment on above: Performed By: #### T SH, CMP, LIPID #### [facility] [address] [address] [address] Shashi Cohen AST [Catalytic activity/Vol] 12 U/L Critically low 15-37 [facility] Comment on above: Performed By: #### T SH, CMP, LIPID #### [facility] [address] [address] [address] Shashi Cohen Bilirubin [Mass/Vol] 0.3 mg/dL Normal 0.2-1.0 [facility] Comment on above: Performed By: #### T SH, CMP, LIPID #### [facility] [address] [address] [address] Shashi Cohen Calcium [Mass/Vol] 9.1 mg/dL Normal 8.5-10.1 [facility] Comment on above: Performed By: #### T SH, CMP, LIPID #### [facility] [address] [address] [address] Shashi Cohen Chloride [Moles/Vol] 102 mmol/L Normal 98-107 [facility] Comment on above: Performed By: #### T SH, CMP, LIPID #### [facility] [address] [address] [address] Shashi Cohen CO2 [Moles/Vol] 25.4 mmol/L Normal 21.0-32.0 [facility] Comment on above: Performed By: #### T SH, CMP, LIPID #### [facility] [address] [place] [address] Dr. Shashi Cohen Creatinine [Mass/Vol] 0.55 mg/dL Normal 0.55-1.02 [facility] Comment on above: Performed By: #### T SH, CMP, LIPID #### [facility] [address] [place] [address] Dr. Shashi Cohen EGFR-AF INDONESIAN >60 Normal >=60 [facility] Comment on above: Performed By: #### T SH, CMP, LIPID #### [facility] [address] [place] [address] Dr. Shashi Cohen EGFR-NON AF INDONESIAN >60 Normal >=60 [facility] Comment on above: Performed By: #### T SH, CMP, LIPID #### [facility] [address] [place] [address] Dr. Shashi Cohen Globulin (S) [Mass/Vol] 3.5 g/dL Normal [facility] Comment on above: Performed By: #### T SH, CMP, LIPID #### [facility] [address] [place] [address] Dr. Shashi Cohen Glucose [Mass/Vol] 100 mg/dL Normal 74-106 [facility] Comment on above: Performed By: #### T SH, CMP, LIPID #### [facility] [address] [place] [address] Dr. Shashi Cohen Potassium [Moles/Vol] 4.0 mmol/L Normal 3.5-5.1 [facility] Comment on above: Performed By: #### T SH, CMP, LIPID #### [facility] [address] [place] [address] Dr. Shashi Cohen Protein [Mass/Vol] 7.4 g/dL Normal 6.4-8.2 [facility] Comment on above: Performed By: #### T SH, CMP, LIPID #### [facility] [address] [place] [address] Dr. Shashi Cohen Sodium [Moles/Vol] 139 mmol/L Normal 136-145 [facility] Comment on above: Performed By: #### T SH, CMP, LIPID #### [facility] [address] [place] [address] Dr. Shashi Cohen Urea nitrogen [Mass/Vol] 14.0 mg/dL Normal 7.0-18.0 [facility] Comment on above: Performed By: #### T SH, CMP, LIPID #### [facility] [address] [place] [address] Dr. Shashi Cohen Urea nitrogen/Creatinine [Mass ratio] 25.5 mg/mg Normal [facility] Comment on above: Performed By: #### T SH, CMP, LIPID #### [facility] [address] [place] [address] Dr. Shashi Cohen TSHon 08-29-2022 TSH 2.445 uIU/mL Normal 0.358-3.74 0 [facility] Comment on above: Performed By: #### T SH, CMP, LIPID #### [facility] [address] [place] [address] Dr. Shashi Cohen UA RANDOM W/MICROSCOPICon BACTERIA NONE SEEN Normal NONE SEEN [facility] Comment on above: Performed By: #### U AMIC #### [facility] [address] [place] [address] Dr. Shashi Cohen Bilirubin Ql (U) Negative Normal NEGATIVE [facility] Comment on above: Performed By: #### U AMIC #### [facility] [address] [place] [address] Dr. Shashi Cohen CAST NONE SEEN Normal NONE SEEN [facility] Comment on above: Performed By: #### U AMIC #### [facility] [address] [place] [address] Dr. Shashi Cohen Clarity (U) CLEAR Normal CLEAR [facility] Comment on above: Performed By: #### U AMIC #### [facility] [address] [place] [address] Dr. Shashi Cohen Color (U) LT. YELLOW Normal YELLOW [facility] Comment on above: Performed By: #### U AMIC #### [facility] [address] [place] [address] Dr. Shashi Cohen Crystals LM Nom (Urine sed) NONE SEEN Normal NONE SEEN [facility] Comment on above: Performed By: #### U AMIC #### [facility] [address] [place] [address] Dr. Shashi Cohen Epithelial cells LM Ql (Urine sed) NONE SEEN Normal NONE SEEN /RARE [facility] Comment on above: Performed By: #### U AMIC #### [facility] [address] [address] [address] Shashi Cohen Glucose Ql (U) Negative Normal NEGATIVE [facility] Comment on above: Performed By: #### U AMIC #### [facility] [address] [address] [address] Shashi Cohen Hemoglobin Ql (U) Negative Normal NEGATIVE [facility] Comment on above: Performed By: #### U AMIC #### [facility] [address] [address] [address] Shashi Cohen Ketones Ql (U) Negative Normal NEGATIVE [facility] Comment on above: Performed By: #### U AMIC #### [facility] [address] [address] [address] Shashi Cohen LEUKOCYTES Negative Normal NEGATIVE [facility] Comment on above: Performed By: #### U AMIC #### [facility] [address] [address] [address] Shashi Cohen MUCOUS NONE SEEN Normal NONE SEEN [facility] Comment on above: Performed By: #### U AMIC #### [facility] [address] [address] [address] Shashi Cohen Nitrite Ql (U) Negative Normal NEGATIVE [facility] Comment on above: Performed By: #### U AMIC #### [facility] [address] [place] [address] Dr. Shashi Cohen pH (U) 6.0 [pH] Normal 5-9 [facility] Comment on above: Performed By: #### U AMIC #### [facility] [address] [address] [address] Shashi Cohen RBC 0-2 Normal 0-2 [facility] Comment on above: Performed By: #### U AMIC #### [facility] [address] [place] [address] Dr. Shashi Cohen SPEC GRAVITY <=1.005 Abnormal 1.005-<=1. 025 [facility] Comment on above: Performed By: #### U AMIC #### [facility] [address] [address] [address] Shashi Cohen UA PROTEIN Negative Normal NEGATIVE/ TRACE [facility] Comment on above: Performed By: #### U AMIC #### [facility] [address] [address] [address] Shashi Cohen Urobilinogen Qn (U) 0.2 {Stephan'U}/dL Normal 0.2 - 1. 0 [facility] Comment on above: Performed By: #### U AMIC #### [facility] [address] [address] [address] Shashi Cohen WBC NONE SEEN Normal NONE SEEN [facility] Comment on above: Performed By: #### U AMIC #### [facility] [address] [address] [address] Shashi Cohen VITAMIN D 25 OHon 08-29-2022 VIT D 25-OH 70.4 ng/mL Normal [facility] Comment on above: Performed By: #### V ITAD ####[facility] [address] [address]Dr. Shashi Cohen VIT D RANGES SEE BELOW Normal [facility] Comment on above: Result Comment: <20 ng/mL Vit D deficient 20 - <30 ng/mL Vit D insufficient 30 - 100 ng/mL Vit D sufficient >100 ng/mL Potential Toxicity Performed By: #### V ITAD ####[facility] [address] [address]Dr. Shashi Cohen MG MAMM DIAGNOSTIC 3D AAMIR CA Don 08-14-2022 MG MAMM DIAGNOSTIC 3D AAMIR CAD Patient: TINY MARTE Exam Date: 08/14/2022 : 1960 Gender:F Ordering : DR. MARK ANTHONY PATTON M.D. Admission #: [id number] Family : KAMILA CURTIS MCKENZIEJOSH BODY FITTER Order #: [id number] CLICK HERE TO VIEW EXAM RADIOLOGY REPORT PROCEDURE: MAMMOGRAM DIAGNOSTIC 3D BILATERAL CAD COMPARISON: MG MAMM AAMIR DIAG W CAD, 02/07/2021. MAMMO POST BIOPSY RIGHT, 09/14/2019. DIGITIZED_MAMMO, 04/07/2007. MG MAMM DIAGNOSTIC 3D AAMIR CAD, 08/15/2021. INDICATIONS: Primary malignant neoplasm of female left breast Calculator Name NCI Breast Cancer Risk Assessment Tool 5 Year Breast Cancer Risk 3.70% Lifetime Breast Cancer Risk 18.10% Personal Breast Cancer No Personal Ovarian Cancer No Treatments None Family Cancers Mother with breast cancer at age 40; Father with kidney cancer at age 60. LOCATION: [facility] BREAST COMPOSITION: Scattered areas fibroglandular [...] LUMP SHOULD BE BIOPSIED. Dictated by: Lalo Tristan M.D. on 08/14/2022 at 14:18 Approved by: Lalo Tristan M.D. on 08/14/2022 at 14:26 Normal [facility] PROF CHEM 8 (BAS METB)on Anion gap [Moles/Vol] 10.7 mmol/L Normal [facility] Comment on above: Performed By: #### B MP ####[facility] [address] [address]Dr. Shashi Cohen Calcium [Mass/Vol] 9.5 mg/dL Normal 8.5-10.1 [facility] Comment on above: Performed By: #### B MP ####[facility] [address] [address]Dr. Shashi Cohen Chloride [Moles/Vol] 102 mmol/L Normal 98-107 [facility] Comment on above: Performed By: #### B MP ####[facility] [address] [address]Dr. Shashi Cohen CO2 [Moles/Vol] 31.0 mmol/L Normal 21.0-32.[address] [facility] Comment on above: Performed By: #### B MP ####[facility] [address] [address]Dr. Shashi Cohen Creatinine [Mass/Vol] 0.70 mg/dL Normal 0.55-1.02 [facility] Comment on above: Performed By: #### B MP ####[facility] [address] [address]Dr. Shashi Cohen EGFR-AF INDONESIAN >60 Normal >=[address] [facility] Comment on above: Performed By: #### B MP ####[facility] [address] [address]Dr. Shashi Cohen EGFR-NON AF INDONESIAN >60 Normal >=60 [facility] Comment on above: Performed By: #### B MP ####[facility] [address] [place], [place] [address]Dr. Shashi Noel Glucose [Mass/Vol] 119 mg/dL Critically high 74-106 [facility] Comment on above: Performed By: #### B MP ####[facility] [address] [place], [place] [address]Dr. Shashi Noel Potassium [Moles/Vol] 4.7 mmol/L Normal 3.5-5.1 [facility] Comment on above: Performed By: #### B MP ####[facility] [address] [place], [place] [address]Dr. Shashi Noel Sodium [Moles/Vol] 139 mmol/L Normal 136-145 [facility] Comment on above: Performed By: #### B MP ####[facility] [address] [place], [place] [address]Dr. Shashi Noel Urea nitrogen [Mass/Vol] 19.0 mg/dL Critically high 7.0-18.0 [facility] Comment on above: Performed By: #### B MP ####[facility] [address] [place], [place] [address]Dr. Cattosha Noel Urea nitrogen/Creatinine [Mass ratio] 27.1 mg/mg Normal [facility] Comment on above: Performed By: #### B MP ####[facility] [address] [place], [place] [address]Dr. Shashi Noel TSH+FREE T4on 12-19-2020 Free T4 [Mass/Vol] 1.5 ng/dL Normal 0.8-1.8 [facility] Comment on above: Performed By: #### 5 8984 #### [facility] [address] [place] [address] Mathematician: Rivera Summers MD TSH Qn 0.58 m[IU]/L Normal 0.40-4.50 [facility] Comment on above: Performed By: #### 5 8984 #### [facility] [address] [place] [address] Mathematician: Rivera Summers MD COMPREHENSIVE METABOLIC PANE [place] 12-01-2020 Albumin [Mass/Vol] 4.3 g/dL Normal 3.6-5.1 [facility] Comment on above: Performed By: #### 7 600, 97536, 19103, 68773 #### [facility] [place] [address] Mathematician: Rivera Summers MD Albumin/Globulin [Mass ratio] 1.9 {ratio} Normal 1.0-2.5 [facility] Comment on above: Performed By: #### 7 600, 28798, 77547, 28071 #### [facility] [place] [address] Mathematician: Rivera Summers MD ALP [Catalytic activity/Vol] 72 U/L Normal 37-153 [facility] Comment on above: Performed By: #### 7 600, 54521, 89045, 20065 #### [facility] [address] [place] [address] Mathematician: Rivera Summers MD ALT [Catalytic activity/Vol] 14 U/L Normal 6-29 [facility] Comment on above: Performed By: #### 7 600, 83881, 56704, 31953 #### [facility] [place] [address] Mathematician: Rivera Summers MD AST [Catalytic activity/Vol] 15 U/L Normal 10-35 [facility] Comment on above: Performed By: #### 7 600, 21426, 87394, 11390 #### [facility] [place] [address] Mathematician: Rivera Summers MD Bilirubin [Mass/Vol] 0.5 mg/dL Normal 0.2-1.2 [facility] Comment on above: Performed By: #### 7 600, 56986, 41438, 75460 #### [facility] [place] [address] Mathematician: Rivera Summers MD BUN/CREATININE RATIO NOT APPLICABLE Normal 6-22 [facility] Comment on above: Performed By: #### 7 600, 89650, 34970, 64192 #### [facility] [address] [place] [address] Mathematician: Rivera Summers MD Calcium [Mass/Vol] 9.2 mg/dL Normal 8.6-10.4 [facility] Comment on above: Performed By: #### 7 600, 04355, 30397, 66275 #### [facility] [place] [address] Mathematician: Rivera Summers MD Chloride [Moles/Vol] 107 mmol/L Normal 98-110 [facility] Comment on above: Performed By: #### 7 600, 29777, 87417, 31608 #### [facility] [address] [place] [address] Mathematician: Rivera Summers MD CO2 [Moles/Vol] 22 mmol/L Normal 20-32 [facility] Comment on above: Performed By: #### 7 600, 01271, 52486, 43348 #### [facility] [place] [address] Mathematician: Rivera Summers MD Creatinine [Mass/Vol] 0.54 mg/dL Normal 0.50-1.[address] [facility] Comment on above: Result Comment: For patients >49 years of age, the reference limit for Creatinine is approximately 13% higher for people identified as -Brazilian. Performed By: #### 7 600, 04870, 56526, 28742 #### [facility] [address] [place] [address] Mathematician: Rivera Summers MD eGFR NON-AFR. INDONESIAN 104 mL/min/1.73m2 Normal > OR = 60 [facility] Comment on above: Performed By: #### 7 600, 08302, 98987, 33563 #### [facility] [place] [address] Mathematician: Rivera Summers MD GFR/1.73 sq M.predicted among blacks MDRD (S/P/Bld) [Vol rate/Area] 121 mL/min/{1.73_m2} Normal > OR = 60 [facility] Comment on above: Performed By: #### 7 600, 74334, 54016, 80454 #### [facility] [place] [address] Mathematician: Rivera Summers MD Globulin (S) [Mass/Vol] 2.3 g/dL Normal 1.9-3.7 [facility] Comment on above: Performed By: #### 7 600, 19512, 27487, 68047 #### [facility] [place] [address] Mathematician: Rivera Summers MD Glucose [Mass/Vol] 118 mg/dL High 65-99 [facility] Comment on above: Result Comment: Fasting reference interval For someone without known diabetes, a glucose value between 100 and 125 mg/dL is consistent with prediabetes and should be confirmed with a follow-up test. Performed By: #### 7 600, 56026, 82281, 60105 #### [facility] [place] [address] Mathematician: Rivera Summers MD Potassium [Moles/Vol] 4.1 mmol/L Normal 3.5-5.[address] [facility] Comment on above: Performed By: #### 7 600, 42631, 93076, 77005 #### [facility] [place] [address] Mathematician: Rivera Summers MD Protein [Mass/Vol] 6.6 g/dL Normal 6.1-8.1 [facility] Comment on above: Performed By: #### 7 600, 30374, 51271, 02609 #### [facility] [place] [address] Mathematician: Rivera Summers MD Sodium [Moles/Vol] 138 mmol/L Normal 135-146 [facility] Comment on above: Performed By: #### 7 600, 34888, 25699, 07570 #### [facility] [place] [address] Mathematician: Rivera Summers MD Urea nitrogen [Mass/Vol] 17 mg/dL Normal 7-25 [facility] Comment on above: Performed By: #### 7 600, 88022, 00744, 02383 #### [facility] [place] [address] Mathematician: Rivera Summers MD LIPID PANEL, [facility] 07-0 Cholesterol [Mass/Vol] 199 mg/dL Normal <200 [facility] Comment on above: Order Comment: FASTI NG:YES FASTING: YES Performed By: #### 7 600, 64222, 32085, 24285 #### [facility] [place] [address] Mathematician: Rivera Summers MD Cholesterol in HDL [Mass/Vol] 48 mg/dL Low > OR = 50 [facility] Comment on above: Order Comment: FASTI NG:YES FASTING: YES Performed By: #### 7 600, 64545, 96574, 34194 #### [facility] [place] [address] Mathematician: Rivera Summers MD Cholesterol in LDL [Mass/Vol] [...] LDL-C. Darren CROCKETT et al. ALEJANDRA. 2013;310(19): 7086-2603 (http://education.Freedu.in.Storemates/faq/BHI104) Performed By: #### 7 600, 14240, 88938, 35865 #### [facility] [address], [address] [place] [address] Mathematician: Rivera Summers MD Cholesterol.total/Chol esterol in HDL [Mass ratio] 4.1 {ratio} Normal <5.0 [facility] Comment on above: Order Comment: FASTI NG:YES FASTING: YES Performed By: #### 7 600, 97299, 84083, 30605 #### [facility] [address], [address] [place] [address] Mathematician: Rivera Summers MD NON HDL CHOLESTEROL 151 mg/dL (calc) High <130 [facility] Comment on above: Order Comment: FASTI NG:YES FASTING: YES Result Comment: For patients with diabetes plus 1 major ASCVD risk factor, treating to a non-HDL-C goal of <100 mg/dL (LDL-C of <70 mg/dL) is considered a therapeutic option. Performed By: #### 7 600, 41105, 59100, 75615 #### [facility] [address], [address] [place] [address] Mathematician: Rivera Summers MD Triglyceride [Mass/Vol] 68 mg/dL Normal <150 [facility] Comment on above: Order Comment: FASTI NG:YES FASTING: YES Performed By: #### 7 600, 30426, 71110, 66047 #### [facility] [address], [address] [place] [address] Mathematician: Rivera Summers MD SARS CoV 2 SEROLOGY (COVID19 ) AB (IgG,IgM), Brittanie 12-01-2020 SARS-CoV-2 (COVID-19) Ab IA Ql Negative Normal NEGATIVE [facility] Comment on above: Result Comment: Reference range: [...] providers and patients using the following websites: [employer]/Covid-19/HCP/antibody/fact-sheet2 [employer]/Covid-19/Patients/antibody/fact-sheet 2 [employer]/Covid-19/HCP/antibody/fact-sheet6 [employer]/Covid-19/Patients/antibody/fact-sheet 6 These tests have been authorized by the FDA under an Emergency Use Authorization (EUA) for use by authorized laboratories. The FDA authorized fact sheets are available on the [employer] website: www.[employer].in.Storemates/Covid19. For additional information please refer to http://education.[employer].Storemates/faq/YCF103 (This link is being provided for informational/ educational purposes only.) Performed By: #### [id number] #### [facility] [address], [address] [place] [address] Mathematician: Rivera Summers MD SARS-CoV-2 (COVID-19) IgM Ab [Presence] in Serum, Plasma or Blood by Rapid immunoassay Negative Normal NEGATIVE [facility] Comment on [...] providers and patients using the following websites: [employer]/Covid-19/HCP/antibody/fact-sheet2 [employer]/[facility]/Covid-19/Patients/antibody/fact-sheet 2 [employer]/home/Covid-19/HCP/antibody/fact-sheet6 [employer]/home/Covid-19/Patients/antibody/fact-sheet 6 These tests have been authorized by the FDA under an Emergency Use Authorization (EUA) for use by authorized laboratories. The FDA authorized fact sheets are available on the [employer] website: www.Fre[employer].in.Storemates/Covid19. For additional information please refer to http://education.[employer]/faq/YLQ170 (This link is being provided for informational/ educational purposes only.) Performed By: #### [id number] #### [facility] [address], [address] [place] [id number] Mathematician: Rivera Summers MD VITAMIN D,25-OH,TOTAL,IAon 0 12-01-2020 VITAMIN D,25-OH,TOTAL,IA 71 ng/mL Normal 30-100 [facility] Comment on above: Result Comment: Sherrie min D Status 25-OH Vitamin D: Deficiency: <20 ng/mL Insufficiency: 20 - 29 ng/mL Optimal: > or = 30 ng/mL For 25-OH Vitamin D testing on patients on D2-supplementation and patients for whom quantitation of D2 and D3 fractions is required, the QuestAssureD(TM) 25-OH VIT D, (D2,D3), LC/MS/MS is recommended: order code 10873 (patients >2yrs). See Note 1 Note 1 For additional information, please refer to http://education.[employer]/faq/KBZ528 (This link is being provided for informational/ educational purposes only.) Performed By: #### [id number] #### [facility] [address], [address] [place] [phone] Mathematician: Rivera Summers MD Vital Signs Date Time Vital Sign Value Performing Clinician Harinder boyle 06-01-2024 09:23-0500 Diastolic blood pressure 90 mm[Hg] Ross STEINBERG Work Phone: [facility] 06-01-2024 09:23-0500 Systolic blood pressure 139 mm[Hg] Ross STEINBERG Work Phone: [facility] 06-01-2024 06:58-0500 Body height 157.5 cm Ross STEINBERG Work Phone: [facility] 06-01-2024 06:58-0500 Body mass index (BMI) [Ratio] 22.68 kg/m2 Ross Parra MBBS Work Phone: [facility] 06-01-2024 06:58-0500 Body temperature 97.81 [degF] Ross Chitnis MBBS Work Phone: [facility] 06-01-2024 06:58-0500 Body weight 56.25 kg Ross Bryantnis MBBS Work Phone: [facility] 06-01-2024 06:58-0500 Heart rate 105 /min Ross Bryantnis MBBS Work Phone: [facility] 06-01-2024 06:58-0500 Respiratory rate 20 /min Ross Bryantnis MBBS Work Phone: [facility] 06-01-2024 06:58-0500 SaO2% (BldA) [Mass fraction] 97 % Ross Bryantnis MBBS Work Phone: [facility] 05-12-2024 15:23-0500 Body height 160 cm Davide Tatum PA-C Work Phone: [facility] 05-12-2024 15:23-0500 Body mass index (BMI) [Ratio] 22.6 kg/m2 Davide Tatum PA-C Work Phone: [facility] 05-12-2024 15:23-0500 Body temperature 98.01 [degF] Davide Tatum PA-C Work Phone: [facility] 05-12-2024 15:23-0500 Body weight 57.88 kg Davide Tatum PA-C Work Phone: [facility] 05-12-2024 15:23-0500 Diastolic blood pressure 65 mm[Hg] Davide Tatum PA-C Work Phone: [facility] 05-12-2024 15:23-0500 Heart rate 104 /min Davide Tatum PA-C Work Phone: [facility] 05-12-2024 15:23-0500 Respiratory rate 16 /min Davide Tatum PA-C Work Phone: [facility] 05-12-2024 15:23-0500 Systolic blood pressure 106 mm[Hg] Davide Rc PA-C Work Phone: [facility] 05-11-2024 11:52-0500 Body mass index (BMI) [Ratio] 22.85 kg/m2 Andreina Dolan MD Work Phone: [facility] 05-11-2024 11:52-0500 Body temperature 97.2 [degF] Andreina Dolan MD Work Phone: [facility] 05-11-2024 11:52-0500 Body weight 58.51 kg Andreina Dolan MD Work Phone: [facility] 05-11-2024 11:52-0500 Diastolic blood pressure 74 mm[Hg] Adnreina Dolan MD Work Phone: [facility] Comment on above: vitals taken at palliative clinic 05-11-2024 11:52-0500 Heart rate 106 /min Andreina Dolan MD Work Phone: [facility] 05-11-2024 11:52-0500 Respiratory rate 16 /min Andreina Dolan MD Work Phone: [facility] 05-11-2024 11:52-0500 SaO2% (BldA) [Mass fraction] 94 % Andreina Dolan MD Work Phone: [facility] 05-11-2024 11:52-0500 Systolic blood pressure 121 mm[Hg] Andreina Dolan MD Work Phone: [facility] Comment on above: vitals taken at palliative clinic 05-11-2024 08:59-0500 Body height 160 cm Norah Coronel MD Work Phone: [facility] 05-11-2024 08:59-0500 Body mass index (BMI) [Ratio] 22.94 kg/m2 Norah Coronel MD Work Phone: [facility] 05-11-2024 08:59-0500 Body temperature 97.2 [degF] Norah Coronel MD Work Phone: [facility] 05-11-2024 08:59-0500 Body weight 58.74 kg Norah Coronel MD Work Phone: [facility] 05-11-2024 08:59-0500 Diastolic blood pressure 74 mm[Hg] Norah Coronel MD Work Phone: [facility] 05-11-2024 08:59-0500 Heart rate 106 /min Norah Coronel MD Work Phone: [facility] 05-11-2024 08:59-0500 Respiratory rate 16 /min Norah Coronel MD Work Phone: [facility] 05-11-2024 08:59-0500 SaO2% (BldA) [Mass fraction] 94 % Norah Coronel MD Work Phone: [facility] 05-11-2024 08:59-0500 Systolic blood pressure 121 mm[Hg] Norah Coronel MD Work Phone: [facility] 04-28-2024 14:28-0500 Body mass index (BMI) [Ratio] 23.17 kg/m2 Carlos He MD Work Phone: [facility] 04-28-2024 14:28-0500 Body temperature 98.1 [degF] Carlos He MD Work Phone: [facility] 04-28-2024 14:28-0500 Body weight 59.33 kg Carlos He MD Work Phone: [facility] 04-28-2024 14:28-0500 Diastolic blood pressure 73 mm[Hg] Carlos He MD Work Phone: [facility] 04-28-2024 14:28-0500 Heart rate 90 /min Carlos He MD Work Phone: 8(697)950-735371 [place] [address] 04-28-2024 14:28-0500 Respiratory rate 16 /min Carlos He MD Work Phone: [facility] 04-28-2024 14:28-0500 SaO2% (BldA) [Mass fraction] 97 % Carlos He MD Work Phone: 9(600)632-062171 [place] [address] 04-28-2024 14:28-0500 Systolic blood pressure 112 mm[Hg] Carlos He MD Work Phone: 8(616)970-944471 [place] [address] 04-14-2024 11:44-0500 Body mass index (BMI) [Ratio] 23.67 kg/m2 Davide Tatum PA-C Work Phone: 8(072)290-053990 [place] [address] 04-14-2024 11:44-0500 Body temperature 97.7 [degF] Davide Tatum PA-C Work Phone: 2(095)505-426290 [place] [address] 04-14-2024 11:44-0500 Body weight 60.6 kg Davide Tatum PA-C Work Phone: 5(206)754-078290 [place] [address] 04-14-2024 11:44-0500 Diastolic blood pressure 70 mm[Hg] Davide Tatum PA-C Work Phone: 9(121)951-835190 [place] [address] 04-14-2024 11:44-0500 Heart rate 95 /min Davide Tatum PA-C Work Phone: 7(167)773-196225 [place] [address] [facility] 04-14-2024 11:44-0500 Respiratory rate 20 /min Davide Tatum PA-C Work Phone: [facility] 04-14-2024 11:44-0500 SaO2% (BldA) [Mass fraction] 93 % Davide Tatum PA-C Work Phone: [facility] 04-14-2024 11:44-0500 Systolic blood pressure 156 mm[Hg] Davide Tatum PA-C Work Phone: [facility] 04-14-2024 09:29-0500 Body mass index (BMI) [Ratio] 23.83 kg/m2 Chepe Chambers MD Work Phone: [facility] 04-14-2024 09:29-0500 Body temperature 98.49 [degF] Chepe Chambers MD Work Phone: [facility] 04-14-2024 09:29-0500 Body weight 61.01 kg Chepe Chambers MD Work Phone: [facility] 04-14-2024 09:29-0500 Diastolic blood pressure 83 mm[Hg] Chepe hCambers MD Work Phone: [facility] 04-14-2024 09:29-0500 Heart rate 85 /min Chepe Chambers MD Work Phone: [facility] 04-14-2024 09:29-0500 SaO2% (BldA) [Mass fraction] 96 % Chepe Chambers MD Work Phone: [facility] 04-14-2024 09:29-0500 Systolic blood pressure 159 mm[Hg] Chepe Chambers MD Work Phone: [facility] 04-09-2024 10:35-0500 Body height 160 cm Adria De Leon MD Work Phone: [facility] 04-09-2024 10:35-0500 Body mass index (BMI) [Ratio] 23.68 kg/m2 Adria De Leon MD Work Phone: [facility] 04-09-2024 10:35-0500 Body temperature 97.59 [degF] Adria De Leon MD Work Phone: [facility] 04-09-2024 10:35-0500 Body weight 60.65 kg Adria De Leon MD Work Phone: [facility] 04-09-2024 10:35-0500 Diastolic blood pressure 77 mm[Hg] Adria De Leon MD Work Phone: [facility] 04-09-2024 10:35-0500 Heart rate 86 /min Adria De Leon MD Work Phone: [facility] 04-09-2024 10:35-0500 Respiratory rate 16 /min Adria De Leon MD Work Phone: [facility] 04-09-2024 10:35-0500 SaO2% (BldA) [Mass fraction] 95 % Adria De Leon MD Work Phone: [facility] 04-09-2024 10:35-0500 Systolic blood pressure 139 mm[Hg] Adria De Leon MD Work Phone: [facility] 04-07-2024 07:27-0500 Body temperature 98.2 [degF] Hawk Pérez MD Work Phone: [facility] 04-07-2024 07:27-0500 Diastolic blood pressure 72 mm[Hg] Hawk Pérez MD Work Phone: [facility] 04-07-2024 07:27-0500 Heart rate 92 /min Hawk Pérez MD Work Phone: [facility] 04-07-2024 07:27-0500 Respiratory rate 16 /min Hawk Pérez MD Work Phone: [facility] 04-07-2024 07:27-0500 SaO2% (BldA) [Mass fraction] 94 % Hawk Pérez MD Work Phone: [facility] 04-07-2024 07:27-0500 Systolic blood pressure 120 mm[Hg] Hawk Pérez MD Work Phone: [facility] 04-06-2024 19:47-0500 Body height 160 cm Hawk Pérez MD Work Phone: [facility] 04-06-2024 19:47-0500 Body mass index (BMI) [Ratio] 23.05 kg/m2 Hawk Pérez MD Work Phone: [facility] 04-06-2024 19:47-0500 Body weight 59.01 kg Hawk Pérez MD Work Phone: [facility] 04-01-2024 13:00-0400 Body height 162.6 cm Shahid Kiara DO Work Phone: [facility] 04-01-2024 13:00-0400 Body mass index (BMI) [Ratio] 23.69 kg/m2 Shahid Kiara DO Work Phone: [facility] 04-01-2024 13:00-0400 Body weight 62.6 kg Shahid Kiara DO Work Phone: [facility] 04-01-2024 13:00-0400 Diastolic blood pressure 85 mm[Hg] Shahid Kiara DO Work Phone: [facility] 04-01-2024 13:00-0400 Heart rate 105 /min Shahid Kiara DO Work Phone: [facility] 04-01-2024 13:00-0400 SaO2% (BldA) [Mass fraction] 91 % Shahid Kiara DO Work Phone: [facility] 04-01-2024 13:00-0400 Systolic blood pressure 128 mm[Hg] Shahid Manzano DO Work Phone: [facility] 03-29-2024 08:20-0400 Body mass index (BMI) [Ratio] 24.69 kg/m2 Mal Martinez MD Work Phone: [facility] 03-29-2024 08:20-0400 Body temperature 98.2 [degF] Mal Martinez MD Work Phone: [facility] 03-29-2024 08:20-0400 Body weight 63.23 kg Mal Martinez MD Work Phone: [facility] 03-29-2024 08:20-0400 Diastolic blood pressure 97 mm[Hg] Mal Martinez MD Work Phone: [facility] Comment on above: RN notified 03-29-2024 08:20-0400 Heart rate 92 /min Mal Martinez MD Work Phone: [facility] 03-29-2024 08:20-0400 Respiratory rate 16 /min Mal Martinez MD Work Phone: [facility] 03-29-2024 08:20-0400 SaO2% (BldA) [Mass fraction] 94 % Mal Martinez MD Work Phone: [facility] 03-29-2024 08:20-0400 Systolic blood pressure 141 mm[Hg] Mal Martinez MD Work Phone: [facility] Comment on above: RN notified 03-26-2024 15:32-0400 Body height 160.02 cm PHYSICIAN NO [facility] 03-26-2024 14:51-0400 Inhaled oxygen flow rate 2 L/min PHYSICIAN NO [facility] 03-26-2024 14:34-0400 Diastolic blood pressure 87 mm[Hg] PHYSICIAN NO [facility] 03-26-2024 14:34-0400 Heart rate 102 /min PHYSICIAN NO [facility] 03-26-2024 14:34-0400 Respiratory rate 20 /min PHYSICIAN NO [facility] 03-26-2024 14:34-0400 SaO2% (BldA) [Mass fraction] 96 % PHYSICIAN NO [facility] 03-26-2024 14:34-0400 Systolic blood pressure 130 mm[Hg] PHYSICIAN NO [facility] 03-26-2024 12:00-0400 Body temperature 97.9 [degF] PHYSICIAN NO [facility] 03-26-2024 05:13-0400 Body weight 65.9 kg PHYSICIAN NO [facility] 03-17-2024 10:55-0400 Body height 160 cm Chepe Chambers MD Work Phone: [facility] 03-17-2024 10:55-0400 Body mass index (BMI) [Ratio] 24.89 kg/m2 Chepe Chambers MD Work Phone: [facility] 03-17-2024 10:55-0400 Body temperature 98.1 [degF] Chepe Chambers MD Work Phone: [facility] 03-17-2024 10:55-0400 Body weight 63.73 kg Chepe Chambers MD Work Phone: [facility] 03-17-2024 10:55-0400 Diastolic blood pressure 84 mm[Hg] Chepe Chambers MD Work Phone: [facility] 03-17-2024 10:55-0400 Heart rate 83 /min Chepe Chambers MD Work Phone: [facility] 03-17-2024 10:55-0400 Respiratory rate 16 /min Chepe Chambers MD Work Phone: [facility] 03-17-2024 10:55-0400 SaO2% (BldA) [Mass fraction] 94 % Chepe Chambers MD Work Phone: [facility] 03-17-2024 10:55-0400 Systolic blood pressure 174 mm[Hg] Chepe Chambers MD Work Phone: [facility] 03-12-2024 13:33-0400 Body height 161 cm Carlos He MD Work Phone: [facility] 03-12-2024 13:33-0400 Body mass index (BMI) [Ratio] 24.04 kg/m2 Carlos He MD Work Phone: [facility] 03-12-2024 13:33-0400 Body temperature 97.9 [degF] Carlos He MD Work Phone: [facility] 03-12-2024 13:33-0400 Body weight 62.32 kg Carlos He MD Work Phone: [facility] 03-12-2024 13:33-0400 Diastolic blood pressure 83 mm[Hg] Carlos He MD Work Phone: [facility] 03-12-2024 13:33-0400 Heart rate 92 /min Carlos He MD Work Phone: [facility] 03-12-2024 13:33-0400 Respiratory rate 16 /min Carlos He MD Work Phone: [facility] 03-12-2024 13:33-0400 SaO2% (BldA) [Mass fraction] 98 % Carlos He MD Work Phone: [facility] 03-12-2024 13:33-0400 Systolic blood pressure 125 mm[Hg] Carlos He MD Work Phone: [facility] 03-03-2024 11:27-0400 Body height 162.6 cm Shahid Manzano DO Work Phone: [facility] 03-03-2024 11:27-0400 Body mass index (BMI) [Ratio] 24.03 kg/m2 Shahid Kiara DO Work Phone: [facility] 03-03-2024 11:27-0400 Body weight 63.5 kg Shahid Kiara DO Work Phone: [facility] 03-03-2024 11:27-0400 Diastolic blood pressure 85 mm[Hg] Shahid Kiara DO Work Phone: [facility] 03-03-2024 11:27-0400 Heart rate 96 /min Shahid Kiara DO Work Phone: [facility] 03-03-2024 11:27-0400 SaO2% (BldA) [Mass fraction] 96 % Shahid Kiara DO Work Phone: [facility] 03-03-2024 11:27-0400 Systolic blood pressure 128 mm[Hg] Shahid Kiara DO Work Phone: [facility] 02-24-2024 16:10-0400 Body mass index (BMI) [Ratio] 24.24 kg/m2 Curtis Ronyz [employer] Work Phone: [facility] 02-24-2024 16:10-0400 Body temperature 98.29 [degF] Curtis Mernaholz [employer] Work Phone: [facility] 02-24-2024 16:10-0400 Body weight 64.05 kg Curtis Aichfaheemz [employer] Work Phone: [facility] 02-24-2024 16:10-0400 Diastolic blood pressure 86 mm[Hg] Curtis Aichholz [employer] Work Phone: [facility] 02-24-2024 16:10-0400 Heart rate 80 /min Curtis Aichholz [employer] Work Phone: [facility] 02-24-2024 16:10-0400 Respiratory rate 19 /min Curtis Aichholz [employer] Work Phone: [facility] 02-24-2024 16:10-0400 SaO2% (BldA) [Mass fraction] 93 % Curtis Mernaholz [employer] Work Phone: [facility] 02-24-2024 16:10-0400 Systolic blood pressure 140 mm[Hg] Curtis Aichholz [employer] Work Phone: [facility] 01-20-2024 15:07-0400 Body height 162.6 cm Curtis Aichholz [employer] Work Phone: [facility] 01-20-2024 15:07-0400 Body mass index (BMI) [Ratio] 24.99 kg/m2 Curtis Aichholz [employer] Work Phone: [facility] 01-20-2024 15:07-0400 Body temperature 98.1 [degF] Curtis Naidahholz [employer] Work Phone: [facility] 01-20-2024 15:07-0400 Body weight 66.04 kg Curtis Naidahholz [employer] Work Phone: [facility] 01-20-2024 15:07-0400 Diastolic blood pressure 80 mm[Hg] Curtis Aichholz [employer] Work Phone: [facility] 01-20-2024 15:07-0400 Heart rate 74 /min Curtis Aichholz [employer] Work Phone: [facility] 01-20-2024 15:07-0400 Respiratory rate 18 /min Curtis Aichholz [employer] Work Phone: [facility] 01-20-2024 15:07-0400 SaO2% (BldA) [Mass fraction] 96 % Curtis Aichholz [employer] Work Phone: [facility] 01-20-2024 15:07-0400 Systolic blood pressure 114 mm[Hg] Curtis Aichholz [employer] Work Phone: [facility] 11-19-2023 10:05-0400 Body height 164 cm Mark Anthony Patton MD Work Phone: [facility] 11-19-2023 10:05-0400 Body mass index (BMI) [Ratio] 23.91 kg/m2 Mark Anthony Patton MD Work Phone: [facility] 11-19-2023 10:05-0400 Body temperature 97.39 [degF] Mark Anthony Patton MD Work Phone: [facility] 11-19-2023 10:05-0400 Body weight 64.3 kg Mark Anthony Patton MD Work Phone: [facility] 11-19-2023 10:05-0400 Diastolic blood pressure 77 mm[Hg] Mark Anthony Patton MD Work Phone: [facility] 11-19-2023 10:05-0400 Heart rate 66 /min Mark Anthony Patton MD Work Phone: [facility] 11-19-2023 10:05-0400 Respiratory rate 16 /min Mark Anthony Patton MD Work Phone: [facility] 11-19-2023 10:05-0400 SaO2% (BldA) [Mass fraction] 99 % Mark Anthony Patton MD Work Phone: [facility] 11-19-2023 10:05-0400 Systolic blood pressure 140 mm[Hg] Mark Anthony Patton MD Work Phone: [facility] 05-16-2022 10:13-0500 Body height 164 cm Mark Anthony Patton MD Work Phone: [facility] 05-16-2022 10:13-0500 Body temperature 97.7 [degF] Mark Anthony Patton MD Work Phone: [facility] 05-16-2022 10:13-0500 Body weight 63.96 kg Mark Anthony Patton MD Work Phone: [facility] 05-16-2022 10:13-0500 Diastolic blood pressure 83 mm[Hg] Mark Anthony Patton MD Work Phone: [facility] 05-16-2022 10:13-0500 Heart rate 71 /min Mark Anthony Patton MD Work Phone: [facility] 05-16-2022 10:13-0500 Respiratory rate 16 /min Mark Anthony Patton MD Work Phone: [facility] 05-16-2022 10:13-0500 SaO2% (BldA) [Mass fraction] 98 % Mark Anthony Patton MD Work Phone: [facility] 05-16-2022 10:13-0500 Systolic blood pressure 118 mm[Hg] Mark Anthony Patton MD Work Phone: [facility] Encounters Encounter Date Encounter Type Care Provider Facility Start: 05-21-2024 End: 05-21-2024 Clinical Support Encounter Kyara Lopez MD, PhD Work Phone: [facility] of Radiation Oncology Comment on above: Secondary malignant neoplasm of brain (Primary Dx) Start: 05-21-2024 ambulatory KYARA LOPEZ Facility: [facility] Start: 05-20-2024 ambulatory MAL Traylor ty:[facility] Start: 05-20-2024 End: 05-20-2024 Clinical Support Encounter Mal Martinez MD Work Phone: Department of Radiation Oncology Comment on above: Carcinoma of breast metastatic to bone, unspecified laterality (Primary Dx) Start: 05-18-2024 End: 06-01-2024 Evaluation and management of inpatient ROSS PARRA Facility:[facility] Start: 05-17-2024 End: 05-18-2024 ambulatory Carlos He MD Work Phone: [facility] Start: 05-14-2024 ambulatory CURTIS AGUIRRE Facility: [facility] Start: 05-13-2024 ambulatory MAL Traylor ty:[facility] Start: 05-12-2024 End: 05-12-2024 Office outpatient visit 40 minutes Davide Tatum PA-C Work Phone: 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) Start: 05-12-2024 ambulatory CURTIS AGUIRRE Facility: [facility] Start: 05-12-2024 ambulatory MAL Traylor ty:[facility] Start: 05-11-2024 End: 05-11-2024 Telephone encounter Norah Coronel MD Work Phone: Division of Palliative Medicine Comment on above: Medication Managemen t Start: 05-11-2024 End: 05-11-2024 Patient encounter procedure Mal Martinez MD Work Phone: Department of Radiation Oncology Comment on above: Carcinoma of breast metastatic to bone, unspecified laterality (Primary Dx) Start: 05-11-2024 ambulatory ANDREINA Tate KELSI Griffin y:[facility] Start: 05-11-2024 End: 05-11-2024 Office outpatient new 45 minutes Norah Coronel MD Work Phone: Division of Palliative Medicine Comment on above: Cancer related pain (Primary Dx); Neuropathic pain; High risk medication use; Therapeutic opioid induced constipation; Nausea; Decreased appetite; Palliative care by specialist; Carcinoma of breast metastatic to bone, unspecified laterality Start: 05-11-2024 ambulatory CURTIS AGUIRRE Facility: [facility] Start: 05-10-2024 ambulatory MARCO ANTONIO RAYA Facility: [facility] Start: 05-07-2024 ambulatory MAL Traylor ty:[facility] Start: 04-28-2024 End: 04-28-2024 Clinical Support Encounter Carlos He MD Work Phone: [facility] Comment on above: 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) Start: 04-28-2024 ambulatory CURTIS AGUIRRE Facility: [facility] Start: 04-26-2024 ambulatory MAL Traylor ty:[facility] Start: 04-21-2024 End: 04-21-2024 ambulatory [facility] Start: 04-20-2024 End: 04-20-2024 Refill Curtis Aguirre [employer] Work Phone: [facility] Comment on above: Gastroesophageal ref lux disease without esophagitis Start: 04-15-2024 End: 04-15-2024 ambulatory Buck Christensen RPh,PharmNabeel [facility] Start: 04-15-2024 End: 04-15-2024 Patient encounter procedure Buck Christensen RPh,PharmNabeel [facility] Start: 04-14-2024 End: 04-14-2024 Subsequent hospital visit by physician Davide Tatum PA-C Work Phone: Department of Radiology Comment on above: Arrived Start: 04-14-2024 ambulatory CURTIS AGUIRRE Facility: [facility] Start: 04-14-2024 End: 04-14-2024 Clinical Support Encounter Mal Martinez MD Work Phone: Department of Radiation Oncology Comment on above: Carcinoma of breast metastatic to bone, unspecified laterality (Primary Dx) Start: 04-14-2024 ambulatory MAL Traylor ty:[facility] Start: 04-14-2024 End: 04-14-2024 Subsequent hospital visit by physician Mal Martinez MD Work Phone: CT Scan Radiation Oncology [facility] Comment on above: Arrived Start: 04-14-2024 End: 04-14-2024 Clinical Support Encounter Carlos He MD Work Phone: [facility] Comment on above: 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, unspecified laterality (Primary Dx) Start: 04-14-2024 ambulatory CURTIS AGUIRRE Facility: [facility] Start: 04-14-2024 End: 04-14-2024 Subsequent hospital visit by physician Jason Brown MD Work Phone: Department of Radiology Comment on above: Arrived Start: 04-09-2024 ambulatory CURTIS AGUIRRE Facility: [facility] Start: 04-09-2024 End: 04-09-2024 Subsequent hospital visit by physician Adria De Leon MD Work Phone: [facility] Comment on above: Arrived Start: 04-09-2024 End: 04-09-2024 Office outpatient new 60 minutes Adria De Leon MD Work Phone: Division of Neuro Surgery at [facility] Comment on above: Carcinoma of left br east metastatic to pleura (Primary Dx) Start: 04-09-2024 ambulatory CHEPE CHAMBERS Facility :[facility] Start: 04-06-2024 End: 04-07-[address] [facility] Start: 04-06-2024 End: 04-07-2024 Subsequent hospital visit by physician Hawk Pérez MD Work Phone: [facility] Med S[facility] Comment on above: Pleural effusion (Pr imary Dx) Start: 04-05-2024 End: 04-07-2024 ambulatory HAWK PÉREZ [facility] Start: 04-05-2024 End: 04-07-2024 Subsequent hospital visit by physician Hawk Pérez MD Work Phone: [facility] Comment on above: Pleural effusion Start: 04-01-2024 End: 04-01-2024 Bamboo flowsheet Shahid Manzano DO Work Phone: [facility] Start: 04-01-2024 End: 04-01-2024 Bamboo flowsheet Shahid Manzano DO Work Phone: [facility] Start: 04-01-2024 End: 04-01-2024 Office outpatient visit 25 minutes Shahidton Manzano DO Work Phone: [facility] Comment on above: Malignant pleural ef fusion (Primary Dx) Start: 04-01-2024 End: 04-01-2024 ambulatory SHAHID MANZANO Not Available Start: 03-29-2024 End: 03-29-2024 Office outpatient new 60 minutes Mal Martinez MD Work Phone: Department of Radiation Oncology Comment on above: Carcinoma of breast metastatic to bone, unspecified laterality (Primary Dx) Start: 03-29-2024 ambulatory MAL MARTINEZ Facili ty:[facility] Start: 03-25-2024 End: 03-26-2024 Evaluation and management of inpatient PHYSICIAN NO [facility] [place] [facility] Work Phone: Start: 03-25-2024 End: 03-26-2024 observation encounter PHYSICIAN NO [facility] Work Phone: Start: 03-25-2024 End: 03-26-2024 ambulatory Nirav Avila Facility:[facility] Start: 03-25-2024 End: 03-27-2024 Clinisync Result Encounter Generic External Data Provider [facility] External Department Unsolicited Start: 03-25-2024 End: 03-27-2024 Clinisync Result Encounter Generic External Data Provider [facility] External Department Unsolicited Start: 03-25-2024 ambulatory CHEPE CHAMBERS Facility :[facility] Start: 03-17-2024 Anes nerve muscle td n fascia&bursa forearm wrist CHEPE CHAMBERS [facility] Start: 03-17-2024 End: 03-22-2024 Evaluation and management of inpatient ERIC TOVAR Facility:[facility] Start: 03-17-2024 End: 03-17-2024 Office outpatient new 45 minutes Chepe Chambers MD Work Phone: Department of Orthopaedics Comment on above: Bone lesion (Primary Dx) Start: 03-17-2024 ambulatory CHEPE CHAMBERS Facility :[facility] Start: 03-17-2024 End: 03-17-2024 Subsequent hospital visit by physician Chepe Chambers MD Work Phone: Department of Radiology Comment on above: Arrived Start: 03-12-2024 End: 03-12-2024 Office outpatient new 60 minutes Carlos He MD Work Phone: Medical Oncology at 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 Comment on above: Invasive ductal carc inoma of breast, female, left (Primary Dx) Start: 03-04-2024 End: 03-04-2024 External Result Encounter Shahid Manzano DO Work Phone: [facility] External Department Unsolicited Start: 03-04-2024 End: 03-04-2024 External Result Encounter Shahid Manzano DO Work Phone: [facility] External Department Unsolicited Start: 03-04-2024 End: 03-04-2024 ambulatory Shahid [facility] Work Phone: Start: 03-04-2024 End: 03-04-2024 Departed Referred DO Shahid Manzano Work Phone: [facility] [place] Work Phone: Start: 03-03-2024 End: 03-03-2024 Bamboo flowsheet Shahid Manzano DO Work Phone: [facility] Start: 03-03-2024 End: 03-03-2024 Bamboo flowsheet Shahid Manzano DO Work Phone: [facility] Start: 03-03-2024 End: 03-03-2024 ambulatory [facility] Start: 03-03-2024 End: 03-03-2024 Office outpatient new 45 minutes Shahid Manzano DO Work Phone: [facility] Comment on above: Pleural effusion, no t elsewhere classified (Primary Dx); Lymphadenopathy, mediastinal Start: 03-03-2024 End: 03-03-2024 ambulatory SHAHID MANZANO Not Available Start: 02-27-2024 End: 02-27-2024 ambulatory [facility] Start: 02-24-2024 End: 02-24-2024 Office outpatient visit 25 minutes Curtis Aguirre [employer] Work Phone: [facility] Comment on above: Pleural effusion, no t elsewhere classified (Primary Dx); Lymphadenopathy, mediastinal; Pericardial effusion; Aromatase inhibitor use; Hx of breast cancer Start: 02-24-2024 End: 02-24-2024 ambulatory CURTIS AGUIRRE Not Available Start: 02-23-2024 End: 02-23-2024 Orders Only Curtis Carla [employer] Work Phone: [facility] Comment on above: Pericardial effusion (Primary Dx) Start: 02-19-2024 End: 02-19-2024 Orders Only Curtis Aichholz [employer] Work Phone: [facility] Comment on above: Lymphadenopathy, med iastinal (Primary Dx) Start: 02-18-2024 End: 02-18-2024 ambulatory JASON TAMEZ Facility:[facility] Start: 02-17-2024 End: 02-17-2024 Orders Only Curtis Carla [employer] Work Phone: [facility] Comment on above: Pericardial effusion (Primary Dx) Start: 02-16-2024 End: 02-16-2024 ambulatory Mark Anthony Patton MD Work Phone: Hematology/Oncology Comment on above: Tests Pericardial effusion (Primary Dx); Abnormal CT of the chest Start: 02-13-2024 End: 02-13-2024 Telephone encounter Mark Anthony Patton MD Work Phone: [facility] Comment on above: Appointment Start: 02-11-2024 End: 02-11-2024 Refill Curtis Aguirre [employer] Work Phone: [facility] Comment on above: Right hip pain (Prim bel Dx) Start: 02-03-2024 End: 02-03-2024 Orders Only Curtis Aguirre [employer] Work Phone: [facility] Comment on above: Bony pelvic pain (Pr imary Dx) Start: 01-31-2024 End: 01-31-2024 Orders Only Curtis Aguirre [employer] Work Phone: [facility] Comment on above: Right hip pain (Prim bel Dx); Lytic bone lesion of hip Start: 01-29-2024 End: 01-29-2024 Orders Only Curtis Aguirre [employer] Work Phone: [facility] Comment on above: Bony pelvic pain (Pr imary Dx); Right hip pain Bony pelvic pain (Pr imary Dx); Right hip pain; Hx of breast cancer; Other osteoporosis without current pathological fracture (CMS/HCC) Start: 01-28-2024 End: 01-28-2024 Orders Only Curtis Aguirre [employer] Work Phone: [facility] Comment on above: Other osteoporosis w ithout current pathological fracture (CMS/HCC) (Primary Dx); Hx of breast cancer; Invasive ductal carcinoma of left breast (CMS/HCC); 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, subsequent encounter; Pleural effusion, not elsewhere classified Start: 01-20-2024 End: 01-20-2024 ambulatory CURTIS AGUIRRE Not Available Start: 01-20-2024 End: 01-20-2024 Office outpatient visit 15 minutes Curtis Aguirre [employer] Work Phone: [facility] Comment on above: Rib pain on right si de (Primary Dx); Pre-diabetes; Mixed hyperlipidemia (CMS/HCC) Start: 01-20-2024 End: 01-20-2024 Bamboo flowsheet Curtis Aguirre [employer] Work Phone: [facility] Start: 01-20-2024 End: 01-20-2024 Bamboo flowsheet Curtis Aguirre [employer] Work Phone: [facility] Start: 01-11-2024 Refill Sammie Siegel APRN.[employer] Work Phone: [facility] Comment on above: Refill Request Start: 11-19-2023 End: 11-19-2023 ambulatory MARK ANTHONY ABDI Facility:[facility] Start: 11-19-2023 End: 11-19-2023 Office outpatient visit 25 minutes Mark Anthony Patton MD Work Phone: Hematology/Oncology Comment on above: 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) (Primary Dx); Aromatase inhibitor use Start: 09-10-2023 End: 09-10-2023 ambulatory CURTIS AGUIRRE Not Available Start: 07-16-2023 Patient encounter procedure [facility] Provider [facility] Department Start: 07-15-2023 ambulatory Mark Anthony rivera MD Work Phone: Hematology/Oncology Comment on above: Dental Work Start: 07-15-2023 Telephone encounter Grace Muñoz Hematology/Oncology Comment on above: Door Attendant Start: 05-15-2023 End: 05-15-2023 ambulatory MARK ANTHONY PATTON Facility:[facility] Start: 11-29-2022 Refill Sammie Siegel APRN.[employer] Work Phone: Laboratory Medicine Comment on above: Refill Request Start: 09-06-2022 Encounter for genera l adult medical examination without abnormal findings KAMILA AGUIRRE [facility] Start: 08-29-2022 End: 08-30-2022 Encounter for general adult medical examination without abnormal findings KAMILA AGUIRRE Facility:[facility] Start: 08-29-2022 End: 08-30-2022 ambulatory KAMILA AGUIRRE Facility:[facility] Start: 08-14-2022 End: 08-15-2022 ambulatory MARK ANTHONY PATTON Facility:[facility] Start: 05-23-2022 End: 05-23-2022 ambulatory KAMILA AGUIRRE Facility:[facility] Start: 05-16-2022 End: 05-16-2022 ambulatory Mark Anthony Patton MD Work Phone: Hematology/Oncology Comment on above: 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) (Primary Dx) Start: 05-16-2022 End: 05-16-2022 Patient encounter procedure Mark Anthony Patton MD Work Phone: [facility] Start: 05-13-2022 Telephone encounter Mark Anthony rodríguez MD Work Phone: Hematology/Oncology Comment on above: Lab Orders Start: 04-29-2022 Telephone encounter [facility] Work Phone: Hematology/Oncology Comment on above: Medication Problem ( Delia requesting auth be with drawn for Prolia) Start: 04-09-2022 ambulatory KAMILA AGUIRRE Facil ity:[facility] Start: 01-22-2022 End: 01-23-2022 ambulatory KAMILA AGUIRRE Facility:[facility] Start: 12-25-2021 End: 12-26-[address] RANJANA ZHANG Facility:[facility] Start: 11-20-2021 End: 05-21-2022 ambulatory KAMILA AGUIRRE Facility:[facility] Procedures Date Procedure Procedure Detail Performing Clinician Start: 06-01-2024 Echo transthorc r-t 2d w/wo m-mode rec f-up/lmtd Maricarmen House PA-C Work Phone: Start: 06-01-2024 Assay of magnesium Sand ra Bebeto Mustafa [employer]ER-[employer] Work Phone: Start: 05-31-2024 Ct head/brain w/o co ntrast material Maricarmen Arangotala PA-C Work Phone: Start: 05-31-2024 Blood gases any combination ph pco2 po2 co2 hco3 Maricarmen Arangotala PA-C Work Phone: Start: 05-31-2024 Calcium ionized Max A H uffman [employer] COMMANDER[employer] Work Phone: Start: 05-31-2024 EXTRA LAVENDER TOP Shaye Fine MD Work Phone: Start: 05-31-2024 EXTRA TUBES Shaye fernández MD Work Phone: Start: 05-31-2024 Hepatic function panel Gabrielle Mustafa [employer] COMMANDER-[employer] Work Phone: Start: 05-30-2024 EXTRA MICRO Sundnato stinsonla PA-C Work Phone: Start: 05-30-2024 URINALYSIS REFLEX TO CULTURE nato Arangotala PA-C Work Phone: Start: 05-30-2024 Urnls dip stick/tabl et reagent auto microscopy Sundari Conchitatala PA-C Work Phone: Start: 05-30-2024 Assay of magnesium Coco Mustafa [employer]ER[employer] Work Phone: Start: 05-30-2024 Calcium ionized Max A H uffman [employer] Work Phone: Start: 05-29-2024 Blood count hematocrit Ayala R Fronk [employer] COMMANDER-[employer] Work Phone: Start: 05-29-2024 Calcium ionized Max A H uffman [employer]ER[employer] Work Phone: Start: 05-28-2024 Dup-scan xtr veins unilateral/limited study Samy Rosario MD Work Phone: Start: 05-28-2024 Echo transthorc r-t 2d w/wo m-mode rec f-up/lmtd Mayra Canada MD Work Phone: Start: 05-28-2024 Calcium ionized Max A H uffman [employer]ER[employer] Work Phone: Start: 05-28-2024 Hepatic function panel Gabrielle Mustafa [employer] AFFAIRS COMMANDER-[employer] Work Phone: Start: 05-27-2024 Biopsy liver needle percutaneous Aaliyah Courtney MD Start: 05-27-2024 Level v surg patholo gy gross&microscopic exam Yo Chaudhari MD Work Phone: Start: 05-27-2024 GENERAL PROCEDURE Newton Courtney MD Start: 05-27-2024 Calcium ionized Max A H uffman [employer] Work Phone: Start: 05-26-2024 Radiologic exam ches t single view Samy Rosario MD Work Phone: Start: 05-26-2024 Culture bct isol&prs mptv id isolate ea urine Michaela Ramsay [employer]AIRS COMMANDER[employer] Work Phone: Start: 05-26-2024 Calcium ionized Max A H uffman INTER[employer] A[employer]AIRS COMMANDER-[employer] Work Phone: Start: 05-26-2024 Hepatic function panel Gabrielle Mustafa [employer] AFFAIRS COMMANDER-[employer] Work Phone: Start: 05-25-2024 Calcium ionized Max A H uffman [employer]AIRS [employer]ER-[employer] Work Phone: Start: 05-24-2024 Glucose measurement, blood Samy Rosario MD Work Phone: Start: 05-24-2024 Calcium ionized Max A H uffman [employer]AIRS COMMANDER[employer] Work Phone: Start: 05-24-2024 Hepatic function panel Gabreille Mustafa INTERNAL AFFAIRS COMMANDER-[employer] Work Phone: Start: 05-23-2024 Calcium ionized Max A H uffman [employer]AIRS COMMANDER[employer] Work Phone: Start: 05-22-2024 Calcium ionized Max A H uffman INTER[employer] A[employer]AIRS COMMANDER[employer] Work Phone: Start: 05-21-2024 End: 05-21-2024 Mri spinal canal cervical w/o & w/contr matrl Max Dalila SchusterNevarez INTER[employer] AFFAIRS COMMANDER-[employer] Work Phone: Start: 05-21-2024 CBC AND ELECTRONIC DIFF Max Dalila Nevarez INTER[employer] AFFAIRS COMMANDER-[employer] Work Phone: Start: 05-21-2024 Complete blood count with white cell differential, automated Johnny Nevarez INTERNAL AFFAIRS COMMANDER-[employer] Work Phone: Start: 05-21-2024 Radiologic exam ches t single view Max Dalila Nevarez INTER[employer] A[employer]AIRS COMMANDER-[employer] Work Phone: Start: 05-21-2024 Calcium ionized Max A H uffman INTER[employer] AFFAIRS COMMANDER-[employer] Work Phone: Start: 05-21-2024 Hepatic function panel Gabrielle Mustafa INTERNAL AFFAIRS COMMANDER-[employer] Work Phone: Start: 05-20-2024 Calcium ionized Max A H uffman INTER[employer] AFFAIRS COMMANDER-[employer] Work Phone: Start: 05-20-2024 Basic metabolic pane l calcium total Max A Nevarez INTER[employer] AFFAIRS COMMANDER-[employer] Work Phone: Start: 05-19-2024 Calcium total Max A Huf fman [employer]AIRS COMMANDER-[employer] Work Phone: Start: 05-19-2024 Ct abdomen & pelvis w/contrast material Gabrielle Mustafa INTERNAL AFFAIRS COMMANDER-[employer] Work Phone: Start: 05-19-2024 End: 05-19-2024 Calcium ionized Max A Nevarez INTERNAL AFFAIRS COMMANDER-C [employer] Work Phone: Start: 05-19-2024 Mri brain brain stem w/o w/contrast material Gabrielle Mustafa INTER[employer] AFFAIRS COMMANDER[employer] Work Phone: Start: 05-18-2024 Culture bct isol&prs mptv id isolate ea urine Gabrielle Mustafa INTER[employer] AFFAIRS COMMANDER-[employer] Work Phone: Start: 05-18-2024 EXTRA MICRO Gabrielle garcia [employer] A[employer]AIRS COMMANDER[employer] Work Phone: Start: 05-18-2024 URINALYSIS REFLEX TO CULTURE Gabrielle Mustafa INTER[employer] AFFAIRS COMMANDER-[employer] Work Phone: Start: 05-18-2024 Bilirubin direct Gabrielle Mustafa INTER[employer] AFFAIRS COMMANDER-[employer] Work Phone: Start: 05-18-2024 Radiologic exam ches t single view Gabrielle Mustafa INTER[employer] AFFAIRS COMMANDER[employer] Work Phone: Start: 05-12-2024 CBC AND ELECTRONIC DIFF Davide Tatum PA-C Work Phone: Start: 05-12-2024 Complete blood count with white cell differential, automated Davide Tatum PA-C Work Phone: Start: 05-12-2024 Comprehensive metabo lic panel Davide Tatum PA-C Work Phone: Start: 04-28-2024 Radiologic exam ches t 2 views Carlos He MD Work Phone: Start: 04-28-2024 Ecg routine ecg w/le ast 12 lds trcg only w/o i&r Davide SABA-C Work Phone: Start: 04-28-2024 CBC AND ELECTRONIC DIFF Davide Tatum PA-C Work Phone: Start: 04-28-2024 Complete blood count with white cell differential, automated Davide SABA-C Work Phone: Start: 04-28-2024 Comprehensive metabo lic panel Davide Tatum PA-C Work Phone: Start: 04-14-2024 Radex ribs unilatera l 2 views Davide Tatum PA-C Work Phone: Start: 04-14-2024 Ecg routine ecg w/le ast 12 lds w/i&r Davide Tatum PA-C Work Phone: Start: 04-14-2024 CBC AND ELECTRONIC DIFF Davide Tatum PA-C Work Phone: Start: 04-14-2024 Complete blood count with white cell differential, automated Davide Juancarlos Rc RODRIGUES Work Phone: Start: 04-14-2024 Comprehensive metabo lic panel Davide Tatum PA-C Work Phone: Start: 04-14-2024 Radiologic examinati on femur minimum 2 views Mac Pedro MD Work Phone: Start: 04-09-2024 Radex entir thrc lmb r crv sac spi w/skull 2/3 vw Adria De Leon MD Work Phone: Start: 04-06-2024 End: 04-06-2024 Insertion indwelling tunneled pleural catheter Hawk Pérez MD Work Phone: Start: 04-06-2024 Ecg routine ecg w/le ast 12 lds i&r only Reese Booth MD Work Phone: Start: 04-05-2024 Radiologic exam ches t 2 views Hawk Pérez MD Work Phone: Start: 03-26-2024 Plain chest X-ray PHYSI AJAY NO FAMILY Start: 03-26-2024 Ultrasonic guidance for thoracentesis PHYSICIAN NO FAMILY Start: 03-25-2024 BLOOD CULTURE 2 Generic External Data Provider Start: 03-25-2024 BLOOD CULTURE 1 Generic External Data Provider Start: 03-17-2024 Antibody screen CURTIS DENSON Comment on above: Performed By: #### X M ####[facility] (DEFAULT)[address] [place] [id number] Start: 03-17-2024 End: 03-17-2024 Radiologic exam pelvis compl minimum 3 views Chepe Chambers MD Work Phone: Start: 03-04-2024 Investigation of transfusion reaction DO Shahid Manzano Work Phone: Start: 03-04-2024 CELL COUNT/DIFF,FLUID L stephanie Manzano DO Work Phone: Start: 03-04-2024 LDH, FLUID Shahid K S track DO Work Phone: Start: 03-04-2024 Protein total xcpt refractometry oth src Shahid Mackay Kiara DO Work Phone: Start: 03-04-2024 Smr prim src gram/gi emsa stain bct fungi/cell Shahid Manzano DO Work Phone: Start: 08-29-2022 Microscopic observat ion [Identifier] in Cervix by Cyto stain Curtis Aguirre [employer] Work Phone: Plan of Treatment Date Care Activity Detail Author Start: 12-02-2026 Screening for malignant neoplasm of colon [facility] Start: 08-29-2025 Screening for malignant neoplasm of cervix [facility] Start: 05-30-2025 Thyroid stimulating hormone measurement [facility] Start: 05-16-2025 DIABETES SCREEN DIABETES SCREEN [facility] Start: 05-16-2025 Diabetes Screening Diabetes Screening [facility] Start: 12-02-2024 Screening for malignant neoplasm of colon [facility] Start: 11-22-2024 DIABETES SCREEN DIABETES SCREEN [facility] Start: 08-26-2024 End: 08-26-2024 ambulatory Imaging Shai Start: 07-14-2024 End: 07-14-2024 ambulatory Department of Radiology Start: 07-14-2024 End: 07-14-2024 Patient encounter procedure Department of Radiology Start: 06-18-2024 End: 06-18-2024 ambulatory Division of Palliative Medicine Start: 06-18-2024 End: 06-18-2024 Telemedicine consultation with patient 06/18/2024 12:15 PM EST Telemedicine Division of Palliative Medicine [address] [phone] Norah Coronel MD [address] [phone] Division of Palliative Medicine Start: 06-17-2024 End: 06-17-2024 ambulatory Department of Radiation Oncology Start: 06-17-2024 End: 06-17-2024 Patient encounter procedure Department of Radiation Oncology Start: 06-16-2024 End: 06-16-2024 ambulatory Department of Radiation Oncology Start: 06-16-2024 End: 06-16-2024 Patient encounter procedure 06/16/2024 3:10 PM EST Appointment Department of Radiation Oncology [address] [place] [address] Ross Parra, IDRIS [address] [place] [address] Zahra Krishna MD [address] [place] [phone] Carlos Guadalupe MD [address] [place] [address] Kyara Lopez MD, PhD [address] [facility] [place] [address] Department of Radiation Oncology Start: 06-15-2024 End: 06-15-2024 ambulatory Department of Radiation Oncology Start: 06-15-2024 End: 06-15-2024 Patient encounter procedure 06/15/2024 3:30 PM EST Appointment Department of Radiation Oncology [address] [place] [address] Ross Parra, IDRIS [address] [place] [address] Zahra Krishna MD [address] [place] [phone] Carlos Guadalupe MD [address] [place] [address] Kyara Lopez MD, PhD [address] [place] [id number] Department of Radiation Oncology Start: 06-14-2024 End: 06-14-2024 ambulatory Department of Radiation Oncology Start: 06-14-2024 End: 06-14-2024 Patient encounter procedure 06/14/2024 5:20 PM EST Appointment Department of Radiation Oncology [address] [phone] Department of Radiation Oncology Start: 06-11-2024 End: 06-11-2024 ambulatory Department of Radiation Oncology Start: 06-11-2024 End: 06-11-2024 Patient encounter procedure 06/11/2024 5:20 PM EST Appointment Department of Radiation Oncology [address] [phone] Department of Radiation Oncology Start: 06-11-2024 End: 06-11-2024 ambulatory 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, unspecified laterality Expected: 06/09/2024 (Approximate), Expires: 04/14/2025 [facility] Comment on above: Expected: 06/09/2024 (Approximate), Expi res: 04/14/2025 Start: 06-09-2024 End: 06-09-2024 [facility] Start: 06-08-2024 End: 06-08-2024 ambulatory Department of Radiation Oncology Start: 06-08-2024 End: 06-08-2024 Patient encounter procedure Department of Radiation Oncology Start: 06-04-2024 End: 06-01-2025 Echocardiography [facility] Start: 06-01-2024 End: 06-01-2024 Clinical Support Encounter Clinical Laboratories at [facility] Start: 05-31-2024 End: 05-31-2025 Echocardiography [facility] Start: 05-28-2024 End: 05-28-2025 XR Thoracic and lumbar spine Views for scoliosis [facility] Start: 05-21-2024 Subsequent hospital visit by physician 05/21/2024 12:30 PM EST Hospital Encounter CT Scan Radiation Oncology [facility] [address] [place] [address] Mal Martinez MD [address] [place] [address] CT Scan Radiation Oncology [facility] Start: 05-21-2024 End: 05-21-2024 Patient encounter procedure Department of Radiation Oncology Start: 05-20-2024 End: 08-19-2024 Cancer Ag 15-3 [Units/volume] in Serum or Plasma CA 15-3 BLD Lab Routine Invasive ductal carcinoma of left breast (HCC) Aromatase inhibitor use Expected: 05/20/2024 (Approximate), Expires: 08/19/2024 [facility] Comment on above: Expected: 05/20/2024 (Approximate), Expi res: 08/19/2024 Start: 05-20-2024 End: 08-19-2024 Cancer Ag 27-29 [Units/volume] in Serum or Plasma CA 27.29 BLOOD Lab Routine Invasive ductal carcinoma of left breast (HCC) Aromatase inhibitor use Expected: 05/20/2024 (Approximate), Expires: 08/19/2024 [facility] Comment on above: Expected: 05/20/2024 (Approximate), Expi res: 08/19/2024 Start: 05-20-2024 End: 08-19-2024 CBC W Auto Differential panel - Blood COMPLETE BLOOD COUNT AND DIFFERENTIAL Lab Routine Invasive ductal carcinoma of left breast (HCC) Aromatase inhibitor use Expected: 05/20/2024 (Approximate), Expires: 08/19/2024 [facility] Comment on above: Expected: 05/20/2024 (Approximate), Expi res: 08/19/2024 Start: 05-20-2024 End: 08-19-2024 Comprehensive metabolic 2000 panel - Serum or Plasma COMPREHENSIVE METABOLIC PANEL Lab Routine Invasive ductal carcinoma of left breast (HCC) Aromatase inhibitor use Expected: 05/20/2024 (Approximate), Expires: 08/19/2024 [facility] Work Phone: Comment on above: Expected: 05/20/2024 (Approximate), Expi res: 08/19/2024 Start: 05-14-2024 End: 05-14-2024 Clinical Support Encounter Department of Radiation Oncology Start: 05-13-2024 End: 05-13-2024 Clinical Support Encounter Department of Radiation Oncology Start: 05-12-2024 End: 05-12-2024 Patient encounter procedure 05/12/2024 3:00 PM EST Office Visit Medical Oncology at [facility] [address], [address] [place] [phone] Davide Tatum PA-C [address] [place] [address] Medical Oncology at [facility] Start: 05-12-2024 End: 05-12-2024 Follow-up encounter Hematology/Oncology Comment on above: 6 month follow up Start: 05-11-2024 End: 05-11-2025 URINE DRUG SCREEN 10 WITH CONFIRMATION URINE DRUG SCREEN 10 WITH CONFIRMATION Lab Routine High risk medication use Expected: 05/11/2024, Expires: 05/11/2025 [facility] Comment on above: Expected: 05/11/2024, Expires: Start: 05-11-2024 End: 05-11-2024 Patient encounter procedure Department of Radiation Oncology Start: 05-10-2024 End: 05-10-2024 Patient encounter procedure 05/10/2024 4:40 PM EST Appointment Department of Radiation Oncology [address] [place] [address] Department of Radiation Oncology Start: 05-10-2024 End: 05-10-2024 Clinical Support Encounter 05/10/2024 11:10 AM EST Clinical Support Encounter Department of Radiation Oncology [address] 1[address], [address] [place] [phone] Marco Antonio Raya MD [address] 1[address], [address] [place] [phone] Department of Radiation Oncology Start: 05-07-2024 End: 05-07-2024 Patient encounter procedure 05/07/2024 4:00 PM EST Appointment Department of Radiation Oncology [address] [place] [address] Department of Radiation Oncology Start: 05-06-2024 End: 05-06-2024 Patient encounter procedure 05/06/2024 4:00 PM EST Appointment Department of Radiation Oncology [address] [place] [address] Department of Radiation Oncology Start: 05-05-2024 End: 05-05-2024 Patient encounter procedure 05/05/2024 2:10 PM EST Appointment Department of Radiation Oncology [address] [place] [address] Mal Martinez MD [address] [place] [address] Department of Radiation Oncology Start: 04-28-2024 End: 04-28-2024 Clinical Support Encounter 04/28/2024 4:30 PM EST Clinical Support Encounter [facility] [address] [place] [phone] Carlos He MD [address] [place] [address] [facility] Start: 04-28-2024 End: 04-28-2024 Clinical Support Encounter Clinical Laboratories at [facility] Start: 04-26-2024 End: 04-26-2024 Patient encounter procedure 04/26/2024 2:30 PM EST Office Visit [facility] Thoracic Surgery [address] [facility] [place] [address] [place] [address] Hawk Pérez MD [address] [place] [address] [facility] Comment on above: 3 week post op Start: 04-14-2024 End: 04-14-[address] Scan Radiation Oncology [facility] Start: 04-14-2024 End: 04-14-2024 Clinical Support Encounter 04/14/2024 12:30 PM EST Clinical Support Encounter [facility] [address] [facility] [address] [place] [phone] Carlos He MD [address] [place] [address] [facility] Start: 04-14-2024 End: 04-14-2024 Clinical Support Encounter Clinical Laboratories at [facility] Start: 04-14-2024 End: 04-14-2024 Patient encounter procedure Department of Radiology Start: 04-13-2024 End: 04-13-2024 Patient encounter procedure 04/13/2024 11:30 AM EST Office Visit [facility] [address] [place], [place] [id number] Tessie Juarez, INTERNAL AFFAIRS COMMANDER - BODY FITTER [address] [place], [place] [phone] [facility] Start: 04-09-2024 End: 04-09-2025 MR Cervical spine WO and W contrast IV MRI SPINE CERVICAL WITH AND WITHOUT CONTRAST Imaging Routine 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 Expected: 04/09/2024, Expires: 04/09/2025 [facility] Comment on above: Expected: 04/09/2024, Expires: Start: 04-09-2024 End: 04-09-2025 MR Thoracic spine WO and W contrast IV MRI SPINE THORACIC WITH AND WITHOUT CONTRAST Imaging Routine 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 Expected: 04/09/2024, Expires: 04/09/2025 [facility] Comment on above: Expected: 04/09/2024, Expires: Start: 04-09-2024 End: 04-09-2024 Patient encounter procedure 04/09/2024 10:30 AM EST Office Visit Division of Neuro Surgery at [facility] [address]st [place] [address] Adria De Leon MD [address] 5th [place] [address] Division of Neuro Surgery at [facility] Start: 04-07-2024 End: 04-07-2024 Patient encounter procedure Department of Radiology Start: 04-05-2024 [facility] Start: 04-04-2024 [facility] Start: 04-03-2024 [facility] Start: 04-02-2024 [facility] Start: 04-01-2024 Influenza vaccination Influenza Vaccine (#1) [facility] Comment on above: Postponed from 02/01/2024 (Patient Does Not Have Time) Start: 04-01-2024 End: 04-01-2024 Patient encounter procedure 04/01/2024 1:30 PM EDT Office Visit [facility] [address] [place] [phone] Shahid Manzano DO [address] [place] [address] Arrived [facility] Comment on above: Arrived Start: 04-01-2024 [facility] Start: 03-31-2024 [facility] Start: 03-30-2024 [facility] Start: 03-29-2024 End: 03-29-2024 Patient encounter procedure 03/29/2024 8:30 AM EDT Office Visit Department of Radiation Oncology [address] Floor, [address] [place] [phone] Mal Martinez MD [address] [place] [address] Department of Radiation Oncology Start: 03-29-2024 [facility] Start: 03-28-2024 [facility] Start: 03-27-2024 aPTT in Platelet poor plasma by Coagulation assay [facility] Start: 03-27-2024 [facility] Start: 03-26-2024 Microbial culture, body fluid [facility] Start: 03-26-2024 [facility] Start: 03-26-2024 Microscopic observation [Identifier] in Unspecified specimen by Gram stain [facility] Start: 03-26-2024 [facility] Start: 03-26-2024 End: 03-26-2024 Clinical Support Encounter Clinical Laboratories at [facility] Start: 03-26-2024 Hospital admission [facility] Start: 03-26-2024 Consultation [facility] Start: 03-26-2024 [facility] Start: 03-26-2024 [facility] Start: 03-18-2024 End: 03-18-2024 Biopsy bone open deep BX BONE OPEN Impending pathologic fracture 03/18/2024 6:00 PM EDT [facility] Start: 03-18-2024 End: 03-18-2024 Proph tx n/p/pltwr w/wo methylmethacrylate femur TREATMENT PROPHYLACTIC FEMUR Impending pathologic fracture 03/18/2024 6:00 PM EDT [facility] Start: 03-18-2024 End: 03-11-2025 XR Chest 2 Views XR chest 2 views Imaging Routine Pleural effusion, not elsewhere classified Expected: 03/18/2024, Expires: 03/11/2025 [facility] Work Phone: Comment on above: Expected: 03/18/2024, Expires: Start: 03-18-2024 End: 03-18-2024 Patient encounter procedure 03/18/2024 9:15 AM EDT Office Visit [facility] [address] [place] [phone] Shahid Manzano DO [address] [place] [address] [facility] Start: 03-17-2024 End: 03-17-2024 Patient encounter procedure Department of Radiology Start: 03-12-2024 End: 03-12-2024 Patient encounter procedure 03/12/2024 1:40 PM EDT Office Visit Medical Oncology at [facility] [address] 4[address], [address] [place] [phone] Carlos He MD [address] [place], [place] [phone] Medical Oncology at [facility] Start: 03-11-2024 End: 03-11-2024 Patient encounter procedure 03/11/2024 9:00 AM EDT Office Visit [facility] [address] [place] [phone] Curtis Aguirre NP [address] [place] [phone] [facility] Start: 03-04-2024 Microbial culture, body fluid [facility] Start: 03-03-2024 End: 03-03-2024 Patient encounter procedure [facility] Comment on above: Lymphadenopathy, mediastinal Start: 02-17-2024 End: 02-16-2026 Echocardiogram 2D complete Echocardiogram 2D complete Echocardiography High Priority Pericardial effusion Expected: 02/17/2024 (Approximate), Expires: 02/16/2026 [facility] Work Phone: Comment on above: Expected: 02/17/2024 (Approximate), Expi res: 02/16/2026 Start: 02-16-2024 End: 02-16-2024 Patient encounter procedure 02/16/2024 3:00 PM EDT [place] [address] [employer] Comment on above: [employer] insurance Start: 02-16-2024 End: 02-15-2026 Echocardiogram 2D complete Echocardiogram 2D complete Echocardiography Routine Pericardial effusion Expected: 02/16/2024 (Approximate), Expires: 02/15/2026 [facility] Work Phone: Comment on above: Expected: 02/16/2024 (Approximate), Expi res: 02/15/2026 Start: 02-03-2024 End: 02-02-2025 XR Pelvis 1 or 2 Views XR pelvis 1 or 2 views Imaging Routine Bony pelvic pain Expected: 02/03/2024 (Approximate), Expires: 02/02/2025 [facility] Work Phone: Comment on above: Expected: 02/03/2024 (Approximate), Expi res: 02/02/2025 Start: 02-01-2024 COVID-19 VACCINE ( season) COVID-19 VACCINE ( season) [facility] Start: 02-01-2024 COVID-19 VACCINE ( season) COVID-19 VACCINE ( season) [facility] Start: 02-01-2024 Influenza vaccination Influenza Vaccine (#1) [facility] Start: 02-01-2024 [facility] Start: 01-31-2024 End: 01-30-2025 CT Hip - right WO contrast CT hip right wo IV contrast Imaging Routine Right hip pain Lytic bone lesion of hip Expected: 01/31/2024, Expires: 01/30/2025 [facility] Work Phone: Comment on above: Expected: 01/31/2024, Expires: Start: 01-29-2024 End: 01-28-2025 XR Hip - right 3 Views [facility] [employer] Work Phone: Comment on above: Expected: 01/29/2024 (Approximate), Expi res: 01/28/2025 Expected: 01/29/2024 , Expires: 01/28/2025 Start: 01-29-2024 End: 01-28-2025 XR Pelvis 3 Views [facility] [employer] Comment on above: Expected: 01/29/2024 (Approximate), Expi res: 01/28/2025 Start: 01-28-2024 End: 01-27-2025 CT Chest WO contrast CT chest wo IV contrast Imaging Routine Pleural effusion, not elsewhere classified Expected: 01/28/2024 (Approximate), Expires: 01/27/2025 [facility] [employer] Work Phone: Comment on above: Expected: 01/28/2024 (Approximate), Expi res: 01/27/2025 Start: 01-20-2024 End: 01-19-2025 XR Ribs Views and Chest PA XR ribs 2 views right w chest anteroposterior Imaging Routine Rib pain on right side Expected: 01/20/2024, Expires: 01/19/2025 [facility] [employer] Work Phone: Comment on above: Expected: 01/20/2024, Expires: Start: 12-07-2023 Screening for malignant neoplasm of colon [facility] Start: 06-02-2023 Behavioral Health Screening Behavioral Health Screening [facility] Start: 06-02-2023 Depression Assessment Depression Assessment [facility] Start: 04-21-2023 Shingrix Vaccine (2 of 2) Shingrix Vaccine (2 of 2) [facility] Start: 11-14-2022 End: 05-16-2023 CBC W Auto Differential panel - Blood CBC + DIFF Lab Routine Invasive ductal carcinoma of left breast (HCC) Expected: 11/14/2022 (Approximate), Expires: 05/16/2023 [facility] Work Phone: Comment on above: Expected: 11/14/2022 (Approximate), Expi res: 05/16/2023 Start: 11-14-2022 End: 05-16-2023 Comprehensive metabolic 2000 panel - Serum or Plasma COMP METABOLIC PANEL Lab Routine Invasive ductal carcinoma of left breast (HCC) Expected: 11/14/2022 (Approximate), Expires: 05/16/2023 [facility] Work Phone: Comment on above: Expected: 11/14/2022 (Approximate), Expi res: 05/16/2023 Start: 11-14-2022 End: 06-15-2023 Diagnostic mammography computer-aided detcj bi DION DIAGNOSTIC BILAT Radiology Routine Invasive ductal carcinoma of left breast (HCC) Expected: 11/14/2022 (Approximate), Expires: 06/15/2023 [facility] Work Phone: Comment on above: Expected: 11/14/2022 (Approximate), Expi res: 06/15/2023 Start: 11-13-2022 DTaP/Tdap/Td vaccine (2 - Td or Tdap) DTaP/Tdap/Td vaccine (2 - Td or Tdap) [facility] Start: 11-13-2022 Tetanus vaccination [facility] Start: 11-13-2022 Urine microalbumin profile [facility] Start: 06-02-2022 DEPRESSION ASSESSMENT DEPRESSION ASSESSMENT [facility] Start: 05-16-2022 End: 05-14-2023 CBC W Auto Differential panel - Blood CBC + DIFF Lab Routine Invasive ductal carcinoma of left breast (HCC) Expected: 05/16/2022 (Approximate), Expires: 05/14/2023 [facility] Work Phone: Comment on above: Expected: 05/16/2022 (Approximate), Expi res: 05/14/2023 Start: 05-16-2022 End: 05-14-2023 Comprehensive metabolic 2000 panel - Serum or Plasma COMP METABOLIC PANEL Lab Routine Invasive ductal carcinoma of left breast (HCC) Expected: 05/16/2022 (Approximate), Expires: 05/14/2023 [facility] Work Phone: Comment on above: Expected: 05/16/2022 (Approximate), Expi res: 05/14/2023 Start: 03-17-2022 COVID-19 VACCINE (5 - Booster) COVID-19 VACCINE (5 - Booster) [facility] Start: 01-31-2022 Influenza vaccination INFLUENZA (#1) [facility] Start: 2021 Respiratory Syncytial Virus (RSV) or age 60 yrs+ (1 - 1-dose 60+ series) Respiratory Syncytial Virus (RSV) or age 60 yrs+ (1 - 1-dose 60+ series) [facility] Start: 2021 RSV Vaccine (1 - 1-dose 60+ series) RSV Vaccine (1 - 1-dose 60+ series) [facility] Start: 2021 [facility] Start: 12-06-2021 Screening for malignant neoplasm of colon COLORECTAL CANCER SCREENING DISCUSSION [facility] Start: 06-05-2021 COVID-19 VACCINE (4 - Booster) COVID-19 VACCINE (4 - Booster) [facility] Start: 06-02-2021 DEPRESSION ASSESSMENT DEPRESSION ASSESSMENT [facility] Start: 08-25-2020 Screening for malignant neoplasm of breast Mammogram Screening [facility] Start: 12-22-2011 Screening for malignant neoplasm of lung [facility] Start: 12-22-2011 SHINGRIX VACCINE (1 of 2) SHINGRIX VACCINE (1 of 2) [facility] Start: 2006 COLOGUARD (FIT-DNA) COLOGUARD (FIT-DNA) [facility] Start: 2006 Colonoscopy COLONOSCOPY [facility] Start: 2006 COLORECTAL CANCER SCREENING COLORECTAL CANCER SCREENING [facility] Start: [address] COLONOGRAPHY [facility] Start: 2006 FECAL OCCULT BLOOD FECAL OCCULT BLOOD [facility] Start: 2006 Lipid panel Lipid Screening [facility] Start: 2006 LIPID SCREEN LIPID SCREEN [facility] Start: 2006 Screening for malignant neoplasm of colon [facility] Start: 2006 SIGMOIDOSCOPY SIGMOIDOSCOPY [facility] Start: 2001 Lipid panel [facility] Start: 2001 Mammography MAMMOGRAM [facility] Start: 2001 Screening for malignant neoplasm of breast [facility] Start: 12-22-1991 HPV TESTING HPV TESTING [facility] Start: 12-22-1991 Screening for malignant neoplasm of cervix [facility] Start: 1982 PAP TESTING PAP TESTING [facility] Start: 1982 Screening for malignant neoplasm of cervix [facility] Start: 12-22-1979 Anxiety Screening Anxiety Screening [facility] Start: 12-22-1979 Depression Screening Depression Screening [facility] Start: 12-22-1979 HEPATITIS C SCREENING HEPATITIS C SCREENING [facility] Start: 12-22-1979 Hepatitis C screening [facility] Start: 12-22-1979 HIV SCREENING HIV SCREENING [facility] Start: 12-22-1979 HIV screening HIV Screening [facility] Start: 1976 HIV screening [facility] Start: 1973 Depression Screen Depression Screen [facility] Start: 12-22-1967 PNEUMOCOCCAL VACCINE SERIES (1 of 2 - PCV) PNEUMOCOCCAL VACCINE SERIES (1 of 2 - PCV) [facility] Start: 12-22-1967 [facility] Start: 1961 Hepatitis C screening [facility] Start: 1961 Screening for malignant neoplasm of colon [facility] Start: 1961 Thyroid stimulating hormone measurement TSH [facility] Bacteria identified in Unspecified specimen by Aerobe culture [facility] Bacteria identified in Unspecified specimen by Aerobe culture [facility] Bacteria identified in Unspecified specimen by Anaerobe culture [facility] Bacteria identified in Unspecified specimen by Anaerobe culture [facility] Bacteria identified in Urine by Culture [facility] BLOOD CULTURE 1 BLOOD CULTURE 1 Lab Routine 03/25/2024 3:24 PM EDT [facility] BLOOD CULTURE 2 BLOOD CULTURE 2 Lab Routine 03/25/2024 3:30 PM EDT [facility] End: 05-31-2024 COPPER [facility] COPPER [facility] Differential panel - Body fluid [facility] Eosinophil percent differential count [facility] Evaluation procedure [facility] End: 04-06-2024 Glucose [Mass/volume] in Serum or Plasma POCT Glucose Point of Care Testing Routine One Time for 1 Occurrences starting 04/06/2024 until 04/06/2024 [facility] Work Phone: Comment on above: One Time for 1 Occurrences starting 10/2023 until 04/06/2024 Lymphocyte percent differential count [facility] Neutrophil percent differential count [facility] End: 06-01-2024 ORDERS (SCANNED) [facility] Oxygen therapy [[facility] [place] [facility]] Initiate Oxygen Therapy Protocol Respiratory Care Routine As Needed until discontinued starting 04/06/2024 [facility] Comment on above: As Needed until discontinued starting PALLIATIVE RAD ONC SIMULATION PALLIATIVE RAD ONC SIMULATION Imaging Routine Impending pathologic fracture 04/14/2024 2:47 PM EST [facility] Work Phone: Patient Education Oxygen Therapy , Adult (DC) Thoracentesis (DC) Know your Meds [facility] Work Phone: Patient referral [facility] Work Phone: End: 03-14-2025 PET+CT Whole body Bone W [id number] IV NM PET/CT WHOLE BODY INITIAL Radiology STAT Disorder of bone 1 Occurrences starting 02/13/2024 until 03/14/2025 [facility] Work Phone: Comment on above: 1 Occurrences starting 02/13/2024 until 03/14/2025 End: 04-06-2024 Portable XR Chest AP single view [facility] Comment on above: Once for 1 Occurrences starting 04/06/20 until 04/06/2024 Specimen description [facility] End: 05-23-2024 Standard ECG [facility] End: 05-24-2024 Standard ECG [facility] End: 05-26-2024 Standard ECG [facility] End: 05-31-2024 VITAMIN B1 [facility]AMIN B1 [facility] Immunizations Immunization Date Immunization Notes Care Provider Fa cili 03-26-2024 influenza, seasonal, injectable, preservative free PHYSICIAN NO [facility] 07-14-2023 zoster vaccine recombinant Shahid Kiara DO Work Phone: [facility] 03-10-2023 influenza, injectabl e, quadrivalent, preservative free Shhaid Kiara DO Work Phone: [facility] 03-10-2023 influenza virus vaccine, unspecified formulation Sammie Siegel APRN.BODY FITTER Work Phone: [facility] 02-24-2023 zoster vaccine recombinant Shahid Kiaar DO Work Phone: [facility] 09-03-2022 Pfizer Vincent Cap SARS-CoV-2 Vaccination Curtis Aguirre [employer] Work Phone: [facility] 05-07-2022 Influenza, injectabl e, Madin Alena Canine Kidney, preservative free, quadrivalent Shahid Kiara DO Work Phone: [facility] 03-15-2021 influenza, injectabl e, quadrivalent, preservative free [facility] Work Phone: [facility] 08-24-2020 COVID-19 original vaccine, age 12+ yr, monovalent (PFIZER-BIONTECH - PURPLE TOP) [facility] Work Phone: [facility] 08-24-2020 COVID-19 vaccine (UNSPECIFIED) [facility] Work Phone: [facility] 03-13-2020 influenza, injectabl e, quadrivalent, preservative free Debra [facility] Work Phone: [facility] 04-29-2017 Influenza, injectabl e, [place] [place] [facility] Kidney, preservative free, quadrivalent Debra [facility] Work Phone: [facility] 04-19-2016 influenza, seasonal, injectable, preservative free Debra [facility] Work Phone: [facility] 11-13-2012 tetanus toxoid, reduced diphtheria toxoid, and acellular pertussis vaccine, adsorbed Debra [facility] Work Phone: [facility] 05-18-2012 influenza, seasonal, injectable Debra [facility] Work Phone: [facility] Payers Date Payer Category Payer Unknown [id number] 2022 Private Health Insurance PAULA GLASS [id number] 2021 Unknown [id number]. 1.13.159.2. [id number] 2021 Unknown [id number] 2017 Unknown [id number] 1961 Unknown [id number] 2.16.840.1.395827.3.579.2. 593 1961 Unknown [id number] 2.16.840.1.393069.3.579.2. 593 1961 Unknown [id number] 2.16.840.1.327403.3.579.2. 593 1961 Unknown [id number] 2.16.840.1.276687.3.579.2. 593 1961 Unknown [id number] 2.16.840.1.121964.3.579.2. 593 1961 Unknown [id number] 2.16.840.1.596372.3.579.2. 593 1961 Unknown [id number] 2.16.840.1.553563.3.579.2. 593 1961 Unknown [id number] 2.16.840.1.476762.3.579.2. 593 1961 Unknown [id number] 2.16.840.1.199928.3.579.2. 1286 1961 Unknown [id number] 2.16.840.1.844567.3.579.2. 1259 1961 Unknown [id number] 2.16.840.1.949105.3.579.2. 1259 1961 Unknown [id number] 2.16.840.1.633737.3.579.2. 1259 1961 Unknown [id number] 2.16.840.1.957963.3.579.2. 1259 1961 Unknown [id number] 2.16.840.1.839859.3.579.2. 1259 1961 Unknown [id number] 2.16.840.1.855510.3.579.2. 182 1961 Unknown [id number] 2.16.840.1.527653.3.579.2. 182 1961 Unknown [id number] 2.16.840.1.351724.3.579.2. 594 1961 Unknown [id number] 2.16.840.1.038111.3.579.2. 594 1961 Unknown [id number] 2.16.840.1.309719.3.579.2. 594 1961 Unknown [id number] 2.16.840.1.560314.3.579.2. 594 1961 Unknown [id number] 2.16.840.1.347285.3.579.2. 594 1961 Unknown [id number] 2.16.840.1.634514.3.579.2. 594 1961 Unknown [id number] 2.16.840.1.690908.3.579.2. 594 1961 Unknown [id number] 2.16.840.1.935493.3.579.2. 594 1961 Unknown [id number] 2.16.840.1.048469.3.579.2. 594 1961 Unknown [id number] 2.16.840.1.655435.3.579.2. 594 1961 Unknown [id number] 2.16.840.1.011658.3.579.2. 594 1961 Unknown [id number] 2.16.840.1.311249.3.579.2. 594 1961 Unknown [id number] 2.16.840.1.885015.3.579.2. 594 1961 Unknown [id number] 2.16.840.1.959667.3.579.2. 594 1961 Unknown [id number] 2.16.840.1.792189.3.579.2. 594 1961 Unknown [id number] 2.16.840.1.559479.3.579.2. 594 1961 Unknown [id number] 2.16.840.1.120054.3.579.2. 594 1961 Unknown [id number] 2.16.840.1.917208.3.579.2. 594 1961 Unknown [id number] 2.16.840.1.942136.3.579.2. 594 1961 Unknown [id number] 2.16.840.1.304850.3.579.2. 594 1961 Unknown [id number] 2.16.840.1.514235.3.579.2. 594 1961 Unknown [id number] 2.16.840.1.654934.3.579.2. 594 1961 Unknown [id number] 2.16.840.1.071240.3.579.2. 594 1961 Unknown [id number] 2.16.840.1.385693.3.579.2. 594 1961 Unknown [id number] 2.16.840.1.441778.3.579.2. 594 1961 Unknown [id number] 2.16.840.1.350409.3.579.2. 594 1961 Unknown [id number] 2.16.840.1.058709.3.579.2. 594 1961 Unknown [id number] 2.16.840.1.016022.3.579.2. 594 1961 Unknown [id number] 2.840.1.333420.3.579.2. 594 1961 Unknown [id number] 2..840.1.275483.3.579.2. 594 1961 Unknown [id number] 2..840.1.224457.3.579.2. 594 1961 Unknown [id number] 2..840.1.393727.3.579.2. 594 1961 Unknown [id number] 2.840.1.624902.3.579.2. 594 1961 Unknown [id number] 2.16.840.1.343388.3.579.2. 594 1961 Unknown [id number] 2.16.840.1.968214.3.579.2. 594 1961 Unknown [id number] 2.16.840.1.997792.3.579.2. 594 1961 Unknown [id number] 2.16.840.1.499850.3.579.2. 594 1961 Unknown [id number] 2.16.840.1.527921.3.579.2. 594 1959 Self-pay Self-pay Self Pay [facility] [id number] Unknown [id number] 2.16.840.1.077490.3.579.2. 531 Unknown [id number] 2.16.840.1.741781.3.579.2. 531 Social History Date Type Detail Facility Start: 09-20-2019 End: 03-12-2024 Tobacco smoking status MSIS Ex-smoker [facility] Start: 06-02-1977 End: 06-02-2011 History of tobacco use Current smoker [facility] Start: 09-20-2019 End: 03-12-2024 Tobacco use and exposure Smokeless tobacco non-user [facility] Start: 11-22-2021 End: 05-19-2024 Alcohol intake Current drinker of alcohol (finding) [facility] Start: 09-20-2019 [facility] Start: 1960 Sex Assigned At Not on file C [facility] Start: 05-15-2023 End: 05-12-2024 History of Social function [facility] Start: 05-15-2023 End: 05-12-2024 Tobacco use panel [facility] Adult Depression Screening Assessment 0 [facility] Start: 06-02-1977 End: 06-02-2011 History of tobacco use Cigarette Smoker [facility] Start: 02-19-2024 End: 02-24-2024 Alcoholic beverage intake Ex-drinker (finding) [facility] Start: 09-10-2023 Alcohol Comment coffee and tea 2 cups daily [facility] Start: 1960 Sex Assigned At Female F [facility] Tobacco smoking stat [facility] Tobacco smoking consumption unknown [facility] Start: 03-12-2024 Alcohol Comment social drinking [facility] Has the electric, [employer], oil, or water company threatened to shut off services in your home in past 12Mo No [facility] (I/We) worried diego er (my/our) food would run out before (I/we) got money to buy more. Never true [facility] Start: 03-26-2024 Tobacco smoking stat us MSIS Never smoked tobacco (finding) [facility] How often to you hav e a drink containing alcohol? Monthly or less [facility] How many standard drinks containing alcohol do you have on a typical day? 1 or 2 [facility] How often do you hav e 6 or more drinks on 1 occasion? Never [facility] History of tobacco use Passive smoker [facility] Medical Equipment Procedure Code Equipment Code Equipment Origin al Text Equipment Identifier Dates [id number] Start: 03-19-2024 [id number] Start: 03-19-2024 [id number] Start: 03-19-2024 [id number] Start: 03-19-2024 Goals Date Patient Goal Desired Activity /State Personal health goal Functional Status Date Assessment Result Facility 03-26-2024 Functional status Patient at Baseline [facility] Work Phone: Mental Status Date Assessment Result Facility 03-26-2024 Cognitive function Cognitive Sta tus Patient at Baseline [facility] Work Phone: Clinical Notes 11-20-2021 to 06-01-2024 [facility] - 06/01/2024 3:07 PM Néstor Davila [facility] - 06/01/2024 2:57 PM Joanna Chawla - 06/01/2024 11:29 AM Joanna Chawla - 06/01/2024 10:55 AM EST Note Date & Type Note Facility 06-01-2024 History of Present illness Narrative Limited TTE was completed today to evaluate the size of the pericardial effusion & if tamponade was present indicating a need for a pericardiocentesis. The patient is scheduled to be discharged today. The TTE reported a moderate circumferential pericardial effusion, containing fluid. There is right atrial collapse present however, the mitral valve inflow not consistent with tamponade. Patient has been stable. Dr. Shabbir Gaviria reviewed the TTE and said the patient can be discharged to home. She has a cardiology follow up on the June with a limited TTE. Xiomy CORRIGAN Cardiology Consult Team [id number] Palliative Medicine Inpatient Note Impression: Tiny Marte is a 63 y.o. female with PMH relevant for metastatic breast CA (mets to brain, bone, lung). Admitted for management of N/V and FTT. Palliative following for symptom management Assessment/Plan: Palliative Care by Specialist - Code status: Full Code. - I did not assess decision making capacity today - Spouse is the surrogate decision-maker. - To follow in the OP Palliative clinic, appointment 06/18/23. I have updated opioid scripts for discharge Cancer Related Pain moderately controlled Neuropathic Pain Chest wall Pain Etiology of pain 2/2 to malignant burden w/ known diffuse bony mets. Moderately controlled - continue Methadone 5mg PO conc liquid to q12h; Last EKG 05/26 QTc 408 -- patient/ spouse had refused dose this AM, spouse concerned that methadone has been the driving force of confusion/anxiety/ agitation, discussed patient should not stop taking Methadone, dose was decreased yesterday to see if mentation would improve in the coming days, encouraged them to keep taking as prescribed at home and see how things go in the home environment if not improvement in mentation would either call OP palliative clinic to discuss dose reduction or discuss at follow up appointment. - Continue PO liquid oxycodone to 5-10mg q4h PRN breakthrough pain - Monitor for opioid toxicities including oversedation/worsening mental status, respiratory depression, constipation, urinary retention, myoclonus, and uncontrolled nausea/vomiting. - continue lidocaine patches over chest wall for MSK discomfort - S/p zometa x1 on 05/19 for bony pain - APAP PRN - continue Ibuprofen 400 mg q6h prn mild/moderate pain Opioid Induced Constipation - moderately controlled - Avoid docusate as it is likely ineffective for pt's constipation - Senna 2 tabs BID - Miralax q12h - bisacodyl suppository qday PRN Last Bowel Movement: 05/28/24 Nausea - improved Subacute worsening over weeks and new MRI findings w/ diffuse parenchymal mets, concern that elevated intracranial pressure could be driving large portion of the nausea burden. Much improved with medication adjustments - Continue olanzapine 5mg at bedtime (increased 05/19) -- I have updated scripts for home. - Continue zofran to 4mg PO/IV q4h PRN - Avoid phenergan given concern for sedation w/ anticholinergic meds Metabolic Encephalopathy Multifactorial in the setting of delirium, hospital acquired, medications, acute illness - CTH with no evidence of hemorrhage, known metastatic lesions to frontal lobes, no significant associated edema - stop Haldol, spouse thinks this makes her more restless/ anxious - continue Zyprexa 5 mg daily at bedtime - continue Zyprexa 2.5 mg q6h prn - opioids adjusted as above, worsening delirium does correlate with increased dose of Methadone reaching steady state (Methadone increased on 05/27) - if encephalopathy/ delirium refractory to the below changes, consider depakote 125 mg BID Insomnia Anxiety Agitation/ restlessness- moderately controlled - continue zyprexa 5 mg at bedtime and 2.5 mg q6h prn; 1st line anxiety and agitation - opioids adjusted as below - started gabapentin 100/100/300 mg 05/30 to help with anxiety/ neuropathic pain Care plan discussed with primary team Alissa VIEIRA Chief Complaint: Pain/ anxiety/ delirium HPI/Interval History: Chart reviewed, plan for discharge today Lengthy discussion with re: Methadone as above Physical Exam: Temp: [97.6 F (36.4 C)-97.9 F (36.6 C)] 97.8 F (36.6 C) Pulse (Heart Rate): [92-105] 105 Resp Rate: [16-20] 20 BP: (137-169)/(75-110) 139/90 O2 Sat (%): [93 %-98 %] 97 % Weight: [56.2 kg (124 lb)] 56.2 kg (124 lb) CONSTITUTIONAL/GENERAL: No apparent distress. Appointment Details: [] Canceled Appointment(s) Details: [x] Scheduled Appointment(s) Imaging/ Appt. Site: ECHO Date: 06/09/24 Time: 10:00am Arrival Time: 9:45am Doctor/ Clinic: Cardio Date: 1/8/25 Time: 2:00pm Arrival Time: 1:45pm Comments: Beatriz Eckert CM/SW Computer Forensics Examiner Please contact the PCRM or family service worker assigned to this patient's care team during regular daytime hours. PCRM: If any changes are required of this individualized plan of care during evening or weekend hours and assistance is needed, please page the retail client solutions consultant PCRM at [phone] Social Work: For Evening (4:30pm-8am) and Weekend SW needs please call [phone] or page [phone] Appointment Details: [] Canceled Appointment(s) Details: [x] Scheduled Appointment(s) Doctor/ Clinic: Dr. He/lab Date: 06/11/24 Time: 2:20pm Arrival Time: 2:20pm Doctor/ Clinic: Dr. He Date: 06/11/24 Time: 3:00pm Arrival Time: 2:45pm Comments: Beatriz Eckert CM/SW Computer Forensics Examiner Please contact the PCRM or family service worker assigned to this patient's care team during regular daytime hours. PCRM: If any changes are required of this individualized plan of care during evening or weekend hours and assistance is needed, please page the retail client solutions consultant PCRM at [phone] Social Work: For Evening (4:30pm-8am) and Weekend SW needs please call [phone] or page [phone] Palliative Medicine Consult Note Impression: Tiny Marte is a 63 y.o. female with a PMH relevant for metastatic breast CA (mets to brain, bone, lung). Admitted for management of N/V and FTT. Our team is consulted for assistance with symptom management. Assessment/Plan: Palliative Care by Specialist: - Code Status: Full Code. Addressed this encounter: No - Palliative Performance Status: 40% - Goals of Care: have not discussed in this encounter - I did not assess capacity today. - The patient does not have an HPOA. Spouse is legal next of kin Garrett Marte [phone] - Patient established with [facility]. - Methadone script updated 05/31. Previously sent Oxycodone tablets for pickup at local pharmacy on 05/31. Patient and spouse updated on scripts. Palliative appt scheduled for 06/18/2024. Nausea - improved Subacute worsening over weeks and new MRI findings w/ diffuse parenchymal mets, concern that elevated intracranial pressure could be driving large portion of the nausea burden. Much improved with medication adjustments - Continue olanzapine 5mg at bedtime (increased 05/19) -- I have updated scripts for home. - stop haldol - Continue zofran to 4mg PO/IV q4h PRN - Avoid phenergan given concern for sedation w/ anticholinergic meds Metabolic Encephalopathy Multifactorial in the setting of delirium, hospital acquired, medications, acute illness - CTH this morning with no evidence of hemorrhage, known metastatic lesions to frontal lobes, no significant associated edema - stop Haldol, spouse thinks this makes her more restless/ anxious - continue Zyprexa 5 mg daily at bedtime - continue Zyprexa 2.5 mg q6h prn - opioids adjusted as below, worsening delirium does correlate with increased dose of Methadone reaching steady state (Methadone increased on 05/27) - if encephalopathy/ delirium refractory to the below changes, consider depakote 125 mg BID Insomnia Anxiety Agitation/ restlessness-poorly controlled - stop Haldol - continue zyprexa 5 mg at bedtime and 2.5 mg q6h prn; 1st line anxiety and agitation - opioids adjusted as below - started gabapentin 100/100/300 mg 05/30 to help with anxiety/ neuropathic pain Cancer Related Pain moderately controlled Neuropathic Pain Chest wall Pain Etiology of pain 2/2 to malignant burden w/ known diffuse bony mets. Moderately controlled - reduce Methadone 5mg PO conc liquid to q12h; Last EKG 05/26 QTc 408 - Continue PO liquid oxycodone to 5-10mg q4h PRN - Monitor for opioid toxicities including oversedation/worsening mental status, respiratory depression, constipation, urinary retention, myoclonus, and uncontrolled nausea/vomiting. - continue lidocaine patches over chest wall for MSK discomfort - S/p zometa x1 on 05/19 for bony pain - APAP PRN - add Ibuprofen 400 mg q6h prn mild/moderate pain Opioid Induced Constipation - moderately controlled - Avoid docusate as it is likely ineffective for pt's constipation - Senna 2 tabs BID - Miralax q12h - bisacodyl suppository qday PRN Last Bowel Movement: 05/28/24 Complexity. Any conditions listed below are present on admission unless otherwise specified.. We will continue to follow. 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 Called by primary team this morning for episode of worsening confusion/ agitation/ anxiety. On exam, patient is sitting up at side of bed. Spouse at bedside attentive and supportive and helps to provide history. This morning patient feels restless, having pain to the low back that radiates down R and L Legs. Also with pain the R chest wall/ ribs. Feels overall pain has improved and is more steady. Asking if she can take ibuprofen as that has been the most helpful thing to her in the past. Spouse notes overnight at 0330 patient was awoken for vital signs and was acutely confused/ agitated with some hallucinations and then at 0800 this morning spouse not in the room but was found by staff having gotten up out of bed to the bathroom without clothes on, confused and with hallucinations. Confusion/ agitation/ anxiety seems to have gotten worse throughout course of hospitalization (was not confused only fatigued prior to hospitalization) and are usually worse when she wakes up and then she becomes more clear headed after awake for awhile. Spouse feels confusion/ anxiety/ restlessness is a result of her medications and expresses frustration that she is seemingly worse since she got here. 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 Data Reviewed: Lab Results Component Value Date WBC 5.14 05/31/2024 HGB 8.4 (L) 05/31/2024 HCT 26.6 (L) 05/31/2024 PLATELET 289 05/31/2024 SODIUM 131 (L) 05/31/2024 POTASSIUM 3.8 05/31/2024 CHLORIDE 95 (L) 05/31/2024 MAGNESIUM 1.7 05/31/2024 CALCIUM 9.5 05/20/2024 CO2 31 05/31/2024 BUN 5 (L) 05/31/2024 CREATSERUM 0.30 (L) 05/31/2024 INR 1.0 05/27/2024 ALBUMIN 2.6 (L) 05/31/2024 AST 31 05/31/2024 ALT 22 05/31/2024 ALKPHOS 311 (H) 05/31/2024 BILITOTAL 0.3 05/31/2024 BILIDIRECT <0.1 05/31/2024 Estimated Creatinine Clearance: 161 mL/min (A) (by C-G formula based on SCr of 0.3 mg/dL (L)). Labs/results reviewed: Chem-7, LFTs, CBC, INR Lab review summary: - labs reviewed and appropriate for current symptom management regimen Summary of imaging results: MRI Brain 05/19/24 IMPRESSION: 1. Numerous enhancing lesions scattered throughout the brain parenchyma, compatible with intracranial metastatic disease. No significant mass effect. No intracranial hemorrhage. 2. Dural thickening enhancement along both sides of the falx, concerning for possible dural metastases. 3. Patchy areas of abnormal marrow signal within the calvarium, concerning for osseous metastatic disease. 4. Prominent pituitary gland with a small 5 mm hypoenhancing focus within the right aspect of the pituitary gland. I independantly interpreted the following medicine tests: - EKG: Date:05/26/24, QTc: 408 ms Clinical assessment, tests and recommendations were discussed with: - CMG ISHA - bedside nurse - patient/ spouse CARDIOLOGY CONSULT PROGRESS NOTE Cardiology consult 05/29/2024 for pericardial effusion HPI I saw Ms. Tiny Marte in follow-up on 05/31/2024. She is a 63 y.o. female with a history of metastatic breast cancer with malignancy pleural effusions s/p PleurX and chronic pericardial effusion admitted on 05/18/24 with failure to thrive, consult for effusion. ASSESSMENT AND PLAN Pericardial effusion: chronic - TTE 05/28/24 showed a moderate sized pericardial effusion with no clear evidence of tamponade. There is respiratory variation of MV & TV inflow velocities but no RA or RV collapse - no urgent need for a pericardiocentesis - thoracic surgery consulted for a possible pericardial window- no plan for a window - recommend checking a limited TTE tomorrow Other problems New brain mets - MRI brain (05/19), with numerous enhancing lesions scattered throughout the brain parenchyma, no mass effect Bilateral Pleural effusions, s/p Right pleuryx catheter placed on 04/06 at [facility] - Chest xray 05/26 showed a mild degrease in size of moderate right pleural effusion INTERVAL HISTORY/REVIEW OF SYSTEMS Over the last day, she had no acute events. She admits to feeling restless, anxious and unable to sellp. Review of Systems Constitutional: Positive for decreased appetite and malaise/fatigue. Negative for fever. Cardiovascular: Positive for dyspnea on exertion. Negative for chest pain, leg swelling and palpitations. Respiratory: Positive for shortness of breath. Gastrointestinal: Negative for bloating, abdominal pain and nausea. Neurological: Negative for headaches. Psychiatric/Behavioral: Positive for hallucinations. PHYSICAL EXAM BP 133/66 Pulse 82 Temp 97.6 F (36.4 C) Resp 16 Ht 1.6 m (5' 2.99 ) Wt 56.7 kg (124 lb 14.4 oz) SpO2 100% BMI 22.13 kg/m Smoking Status Former Constitutional: Awake, cooperative female in no distress HEENT: Normocephalic, atraumatic, anicteric sclerae, no carotid bruits appreciated Chest: Respiratory effort unlabored. Lungs are clear with decreased BS in bases bilaterally, O2-3 L nasal cannula Cardiovascular: No JVD appreciated. Normal rate & regular rhythm; S1 normal, S2 normal., no gallop, no friction rub or murmur heard. Abdomen: Soft, non-tender, non-distended. +BS. Extremities: No peripheral edema. No stasis dermatitis. Radial, dorsalis pedis and posterior tibial pulses are 2+ bilaterally. Neurological: Alert and oriented to person, place and time. Skin: Warm, dry. No cyanosis. Nails show no clubbing. CARDIOVASCULAR IMAGING/DATA Results for orders placed during the hospital encounter of 05/18/24 ECHOCARDIOGRAM LIMITED/FOLLOWUP 05/28/2024 (Final) Interpretation Summary Limited study. Normal LV and RV function. Estimated LVEF 65-70%. Mild tricuspid regurgitation. Estimated RVSP 37 mmHg. Moderate pericardial effusion. No clear evidence of tamponade. There is respiratory variation of mitral and tricuspid valve inflow velocities, but no evidence of RA or RV collapse. IVC is non-dilated and decreases in size with inspiration. 24 hour telemetry (personally reviewed): off ADDITIONAL DATA REVIEWED Intake/Output Summary (Last 24 hours) at 05/31/2024 0710 Last data filed at 05/30/2024 1123 Gross per 24 hour Intake 0 ml Output 150 ml Net -150 ml Temp: [97.6 F (36.4 C)-98.3 F (36.8 C)] 97.6 F (36.4 C) Pulse (Heart Rate): [82-107] 82 Resp Rate: [16-18] 16 BP: (133-181)/(66-108) 133/66 O2 Sat (%): [95 %-100 %] 100 % Weight: [56.7 kg (124 lb 14.4 oz)] 56.7 kg (124 lb 14.4 oz) Oxygen Therapy O2 Sat (%): 100 % O2 Device: nasal cannula Flow (L/min): 3 Body mass index is 22.13 kg/m . LABS Bun/Creat/Cl/CO2/Glucose: 5/0.30/95/31/95 (05/31 0346) Na/K+/Phos/Mg/Ca: 131/3.8/4.1/1.7/-- (05/31 346) WBC/Hgb/Hct/Plts: 5.14/8.4/26.6/289 (05/31 346) No results found for: BNP No results found for: CHOLESTEROL , TRIG , HDL , LDLCALC , LDLDIRECT CURRENT MEDICATIONS: faMOTIdine 20 mg Oral Q12H Gabapentin 100 mg Oral BID Gabapentin 300 mg Oral QHS Levothyroxine 75 mcg Oral Before BKF lidocaine 2 patch Transdermal Q24H Loratadine 10 mg Oral Daily Methadone 5 mg Oral Q8H OLANZapine 5 mg Oral QHS Pantoprazole 40 mg Intravenous Daily Polyethylene glycol 17 g Oral Q12H Ramelteon 8 mg Oral QHS Senna 17.2 mg Oral Q12H Complexity. Hyponatremia - Secondary to fluid shifts. Monitor. Hypocalcemia - Continue to monitor and replete. . Malnutrition - Moderate Protein-Calorie Malnutrition (POA) (05/27/2024 9:00 AM) secondary to Chronic Illness (05/27/2024 9:00 AM) - Reviewed and agree with industrial registered nurse's recommendations. Any conditions listed below are present on admission unless otherwise specified. . Thank you for this consult. Please call with questions. We will continue to follow along. [facility] Consult Service Phone: [phone] CANCER MEDICINE INPATIENT PROGRESS NOTE TODAY'S DATE: 05/31/2024 ADMIT DATE: 05/18/2024 6:40 PM REASON FOR ADMISSION: Brain mets Primary Oncologist: Carlos He ASSESSMENT AND PLAN Tiny Marte is a 63 y.o. female with a PMH of GERD, hypothyroidism, pleural effusions s/p right pleurx 04/06/24, and metastatic breast cancer to bone, who presented as a direct admission for c/o nausea, vomiting, pain and FTT. ACUTE PROBLEMS New Brain Mets Osseus Metastatic Disease of the Spine L1 Pathological Fracture - Admitted with persistent nausea, vomiting, fatigue, and FTT - MRI brain (05/19), with numerous enhancing lesions scattered throughout the brain parenchyma, no mass effect - CTAP showing progression of osseous metastases as well as new disease in liver - MRI C/T/L spine with osseous metastatic disease throughout spine, and L1 pathological fracture - NSGY consulted: No surgical intervention recommended - RadOnc consulted: Plan for fractionated SRS (3 fractions) for her brain metastases. CT simulation completed 05/20 Previously planned for radiation to painful bone mets (right hip, lumbar spine), will be rescheduled. Patient is scheduled for radiation treatments 06/08-06/17/24 - Restarted prophylactic lovenox on 05/31 Anxiety Hallucinations/Agitation/Restless ness Insomnia - Etiology either due to hypoactive delirium or medications - PPM following and changes updated on 05/31 Stop atarax, haldol Continue zyprexa 2.5 mg q6h prn and 5 mg daily at bedtime - 1st line anxiety and agitation Decreased methadone to q12h If encephalopathy/delirium refractory to changes, consider depakote 125 mg BID Gabapentin 100/100/300 mg for anxiety/neuropathic pain - Neuro onc consulted per PPM Recommended workup for hypoactive delirium (B12 673 , folate 12.32, TSH 0.061 low ; however. Free T4 normal at 0, copper pending, thiamine pending, UA WNL, head CT without contrast unremarkable) Head CT (05/31) with vague mineralization associated with known metastatic lesions in the frontal lobes. No significant lesion of edema or mass effect, no evidence of acute intracranial hemorrhage. Thiamine protocol started 05/31 Recommended regulating sleep wake cycles Increased Melatonin 9mg PO at bedtime PRN on 05/30 - Venous blood gas - resp acidosis with compensation - Will need to reach out to Dr. He on 06/07 once he is back to update on patient's status. Moderate Pericardial Effusion - Known hx pericardial effusion - Echo (05/28) with moderate pericardial effusion, no evidence of tamponade - Cardiology consulted: Almost certainly etiology is malignant, no urgent pericardiocentesis is needed but likely will continue to progress. Would ask thoracic surgery to see about pericardial window. 05/30 - no urgent need for a pericardiocentesis 05/31 - recommends checking a limited TTE - ordered Discussed with cardiology since patient is requesting to discharge: requesting 1 week cards follow-up with limited TTE - Outpatient TTE scheduled for 06/04 at 930 followed by cardiology follow-up appointment at 1530 - Thoracic surgery consulted: No evidence of ongoing tamponade. Cardiology following and will re-evaluate on Friday. No acute indication for pericardial window given debilitation and limited prognosis, would also appreciate pericardiocentesis and/or drain placement with fluid cytology and studies before operative intervention is considered Bilateral Pleural Effusions Acute on Chronic Hypoxemic Respiratory Failure - With baseline O2 2L at HS, requiring 2L continuously during admission - Etiology multifactorial, with known pleural effusions, also pericardial effusion - S/p recent R pleurx catheter placed at OSH on 04/06. 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 - CXR 05/26 with improved effusions - Discussed with IP attending, CLAUDIA Amin for the patient to drain up to 1L every other day for now - Walk of life test completed on 05/31 - qualified for 3L with exertion - Continuous pulse ox in place Anemia - With Hgb ~9-10 during admission, then acute drop to 8.8 on 05/29 - Likely partially chemo related, did have liver biopsy 05/27 - Repeat Hgb 8.4 on 05/31 - Trend daily CBC, monitor for any bleeding RLE Edema - Noted 05/27, unclear etiology - RLE doppler ordered for concern for RLE swelling noted during attending assessment on 05/27 (pending) Nausea / Vomiting FTT - Admitted with persistent nausea/vomiting and fatigue. Possibly 2/2 brain mets, hypercalcemia, also possibly infection with UTI - CXR unremarkable for acute process - UA unremarkable - PPM following/recs: Stop haldol Continue olanzapine to 5mg at bedtime Continue zofran to 4mg PO/IV q4h PRN 2nd line Avoid phenergan given concern for sedation w/ anticholinergic meds Cancer Related Pain - Pain to right side into right back and now left side, hips, legs. Relted to metastatic disease - Follows with PPM outpatient - PPM consulted: Reduced Methadone 5mg PO conc liquid Q12hr on 05/31. (05/26 QTc 408) Continue PO oxycodone 5-10mg q4h PRN - changed to tablet form Continue lidocaine patches over chest wall for MSK discomfort Add ibuprofen 400 mg q6h prn mild/moderate pain APAP PRN Opioid Induced Constipation - Continue scheduled Senna and Miralax BID - Bisacodyl suppository qday PRN Metastatic Breast Cancer - Follows with Dr. He - Known bone mets - S/p fixation and then radiation to right femur - Current tx: faslodex (C1D1 05/12) and ribociclib. Planning to switch to abemaciclib OP - Dr He notified 05/19 of results of MRIB and CT on admission, showing worsening metastatic disease. Recommended liver biopsy - IR consulted: s/p liver biopsy 05/27, path pending - Will need to reach out to Dr. He on 06/07 once he is back regarding patient's mental status and anxiety. Complexity. Hyponatremia - Secondary to fluid shifts. Monitor. Hypocalcemia - Continue to monitor and replete. . Malnutrition - Moderate Protein-Calorie Malnutrition (POA) (05/27/2024 9:00 AM) secondary to Chronic Illness (05/27/2024 9:00 AM) - Reviewed and agree with industrial registered nurse's recommendations. Any conditions listed below are present on admission unless otherwise specified. .Metastatic Cancer, Location of Metastasis: see above Body mass index is 22.13 kg/m . RESOLVED PROBLEMS UTI - Urine culture positive for mixed microbes, s/p ceftriaxone (05/20-05/22). - Repeat urine cx (05/26): no growth Hypercalcemia of Malignancy - With Ca 13.6, albumin 3.6 on admission. - S/p zometa and calcitonin x1 on 05/19. S/p MVF, off since 05/21 - PTH intact low at 9 and vit d 40.8. PTHrp hemolyzed - Calcium now stable CHRONIC PROBLEMS Hypothyroidism - cont home levothyroxine GERD - cont home pepcid DVT prophylaxis: Lovenox restarted on 05/31 Diet: DIET REGULAR Continuous Infusions: Code Status: Full Code Serious Illness Conversation: NA Disposition: The patient will require continued hospitalization for pericardial effusion - TTE pending, monitoring respiratory status, pain/anxiety control. They are expected to discharge after the 1st of the year. Follow-ups made: NSGY 08/26/24, scoliosis X-ray 08/26, Rad onc on 06/08, Cardiology 06/04 Follow-ups needed: Med onc, SUBJECTIVE Patient's reports that patient was disoriented and confused around 3:30 am and again at 6:45am when she was given her methadone. He reports that around 9:00 when he stepped out to get coffee, OT was in the room and reported the patient in the bathroom with her clothes off, oxygen off and tangled around the bed, water bottle across the room, and was confused and disoriented. Patient was seen sitting up in the bed, anxious and continuously changing the bed settings. She reported anxiety, denied shortness of breath. Also reports 3-4 episodes of diarrhea. Denies abdominal pain or bloody stools. Both patient and her were confused on why she was still in the hospital. Discussed plans for head CT today and TTE tomorrow. also reports decrease in appetite. Discussed with patient about changing her fluid oxy to tablet oxy, patient was agreeable. Denies fever, chills, nausea, vomiting, headaches, vision changes, chest pain, shortness of breath or palpitations. All questions answered. Review of symptoms otherwise negative. OBJECTIVE Temp: [97.5 F (36.4 C)-98.3 F (36.8 C)] 97.5 F (36.4 C) Pulse (Heart Rate): [82-107] 97 Resp Rate: [16-18] 16 BP: (133-181)/(66-108) 137/89 O2 Sat (%): [95 %-100 %] 98 % General: A&O to self, time, place, and situation. NAD. Anxious HEENT: EOMI, anicteric sclerae, conjunctivae & lids symmetrical. No signs of inflammation. Neck no rigidity. Not STILLAGUAMISH. MMM Respiratory: No crackles/rhonchi/wheezes, no increased WOB. On 2.5L NC. Right PleurX catheter capped, covered with dressing Cardiovascular: RRR, no murmurs, rubs, clicks or gallops, no peripheral edema noted on bilateral upper or lower extremties, cap refill brisk. Abdomen: Normoactive BS. Abdomen soft, RUQ non tender, non distended. No palpable masses. Neurologic: No focal deficits. Speech clear and coherent. Follows commands. Skin: Color, texture, and turgor normal. No rashes or lesions. Bx dressing C/D/I Psychosocial: Affect appropriate. Anxious PIV with no evidence of erythema, drainage, or tenderness. Dressing is clean, dry, and intact. Plan of care reviewed with the attending, Dr. Shaye Fine MD: in agreement. Maricarmen House PA-C Pager [phone] Cancer Medicine & Medical Oncology Inpatient Services may be reached daily from 7a-7p at pager number listed on [facility]Genda. After these hours please page moonlighter retail client solutions consultant. Associated attestation - Shaye Fine MD - 05/31/2024 5:09 PM EST I have seen the patient with teams on 05/31/24, spent 35 minutes to perform critical or yarbrough portions of the service, participated in the management of the patient. I agree with the physical exam as stated below. Case discussed in the rounds with the team. I have personally reviewed all available clinical data related to today's encounter including, but not limited to, labs, radiology images and reports, procedure reports, outside medical records, and EKG/telemetry tracings if applicable. I agree with the documented assessment and plan. SUBJECTIVE AND INTERVAL HISTORY Pt and her spouse very frustrated about long hospital stay. Would like to go home, plan to DC home tomorrow. Vitals: 05/31/24 1539 BP: 138/80 Pulse: Resp: Temp: SpO2: Wt Readings from Last 1 Encounters: 05/30/24 56.7 kg (124 lb 14.4 oz) Body mass index is 22.13 kg/m . Intake/Output last 3 shifts: No intake/output data recorded. Exam Pt fidgety Heart- RRR no murmur or gallop Lungs- CTA aamir No focal neuro deficits. Assessment/Plan: Tiny Marte is a 63 y.o. female with a PMH of GERD, hypothyroidism, pleural effusions s/p right pleurx 04/06/24, and metastatic breast cancer to bone, who presented as a direct admission for c/o nausea, vomiting, pain and FTT. Brain mets Osseous mets of the spine L1 pathologic fracture No surgical intervention recommended per NS Rad/Onc plan for SRS; CT sim'ed on 05/20/24 Plan for RT from 06/08/24- 1/16/25. Anxiety Hallucination PPM discontinued Atarax; started Zyprexa on 05/30/24 as the first line anxiety. Increased Melatonin 9 mg at bedtime on 05/30/24. Haldol Dc'ed. Cancer related pain PPM decreased Methadone; continue Neurontin and Oxy prn. Moderate pericardial effusion No evidence of tamponade per TTE on 05/28/24 No plan for pericardiocentesis. Acute on chronic respiratory failure Bilateral pleural effusion S/p R pleurX cath placement on 04/06/24; drain up to 1L every other day. Requiring continuous 2L nc O2; previously on 2 L at night. Metastatic Breast Cancer Follows with Dr. He H/o bone mets, s/p ORIF of the R femur S/p liver BX on 05/27/24- pending Currently on Faslodex and Ribociclib but plan to switch to Abemaciclib. Disposition;Home Expectant DC; 06/01/24 Please refer to the [facility] note below for further details. Shaye Fine MD Oxygen Therapist Division of Hospital Medicine Pager [phone] Acute Physical Therapy Treatment Prior Gross Functional Mobility: independent (Baseline status prior to March 2024) Current AM-PAC score(s): CURRENT AM-PAC Mobility Raw Score: 19 Based on the above AM-PAC score(s) and PT clinical judgment, patient is a good candidate for discharge to Home with Outpatient Rehab Services (and available family support) Barriers to discharge home: Patient needs assistance with functional mobility Mobility equipment available at home: 2 wheeled walker, manual wheelchair, oxygen (nocturnal 2LO2 - O2 concentrator; wheelchair - borrowed from friends) ADL equipment available at home: shower chair Equipment needed for discharge: none Current therapy frequency recommendation in acute: PT Therapy Frequency: 4 times a week Activity Recommendations for outside of rehab session: 1 person assist with gait belt and 2ww Precautions and Weightbearing Status: Existing Precautions/Restrictions: fall, supplemental oxygen Patient Safety Communication Prior to Visit: Nursing Right Lower Extremity : weight bearing as tolerated (s/p femur fixation (03/19/24)) Subjective: Pt presented standing in bathroom attempting to move BSC. Pt confused with no pants on and took her oxygen off. Pt stated I'm just trying to get myself ready for bed . Pain: General Pain Documentation (Adult, OB, Peds) Presence of Pain: not present: non-verbal indicator of pain/discomfort Presence of Pain Score (Auto-calculated): 0 Objective/Observation: Vitals/Vitals Responses to Treatment: stable O2 Device: nasal cannula Flow (L/min): 3 Cognition Overall Cognitive Status: Impaired Arousal/Alertness: Appropriate responses to stimuli Orientation Level: Oriented to person, Oriented to place, Oriented to time Following Commands: Follows one step commands with increased time Extremity Assessments: See PT Evaluation flowsheet for Extremity Measurement updates. Skin and Edema: Balance: Sitting Balance Static Sitting-Level of Assistance: Supervision Dynamic Sitting-Level of Assistance: Standby Sitting Balance Skilled Intervention/Details: Pt sat unsupported on BSC while therapist assisted with donning pull up and pajama pants. Pt then sat EOB x 2-3 min prior to lying down. Standing Balance Static Standing-Level of Assistance: Contact guard Dynamic Standing-Level of Assistance: Contact guard Skilled Rationale: Verbal cues, Hand placement Standing Balance Skilled Intervention/Details: Pt stood at [facility] x 1 min with verbal cues for keeping one hand on arm rest while therapist assisted with pulling up pants. Mobility Assessment/Intervention: Sit to Supine Mobility Bay Level: Sit->Supine: stand-by assist Bed Features/Set-up: Sit->Supine: Head of bed elevated, Use of bed rail Transfer Assessment/Intervention: Sit to Stand Transfer Bay Level: Sit->Stand: contact guard assist Assistive Device: Sit->Stand: armed chair Skilled Rationale: Verbal cues, Hand placement Skilled Intervention/Details: Sit->Stand: From BSC Stand to Sit Transfer Bay Level: Stand->Sit: contact guard assist Assistive Device: Stand->Sit: hand held assist Skilled Rationale: Verbal cues, Hand placement Skilled Intervention/Details: Stand->Sit: To EOB Gait/Functional Mobility Assessment/Intervention: Gait Assessment Bay Level: Gait: contact guard assist Assistive Device: Gait: hand held assist Ambulation Distance (Feet): 20 Gait Deviations Identified: decreased elena, decreased gait speed, decreased step length, flexed posture Gait Skilled Rationale: verbal, upright posture Skilled Intervention/Details - Gait: Pt ambulated with very slow elena and mild unsteadiness. Verbal cues for upright posture. Pt reaching out for furniture with other hand. CURRENT AM-PAC Basic Mobility Inpatient Short Form Turning over in bed: 4 - No Assistance Moving from lying on back to sittin - A Little Assistance Moving to and from bed to chair: 3 - A Little Assistance Sitting/standing from chair: 3 - A Little Assistance Walk in hospital room: 3 - A Little Assistance Climbing 3-5 steps with a railin - A Little Assistance CURRENT AM-[facility] Mobility Raw Score: 19 CURRENT -[facility] Mobility Functional Limitation: 41.77% Impaired in Basic Mobility Assessment & Plan: Pt presented in bathroom confused, naked from waiste down, and without O2. Pt reporting SOB. O2 was put back on pt with instruction for pursed lip breathing. Assisted pt with donning pajamas and getting back to bed. Progress limited by confusion and fatigue. Pt would benefit from continued PT services to address strength, endurance, and ambulation. Pt is making limited progress toward goals. Patient Instruction/Education this session: Learners: Patient Education provided: Plan of care Plan for next session: Progress ambulation as tolerated Acute PT Goals Plan of Care by Ashanti Anthony PTA at 05/31/2024 8:19 AM Version 1 of 1 Problem: PT - General Goals Goal: Sit <-> Stand Transfers - Patient will perform sit to/from stand transfers with modified independence and least restrictive to no device in order to improve functional mobility and safety. Outcome: Ongoing Goal: Standing Endurance/Balance - Patient will perform standing balance tasks for 5-10 min with modified independence and least restrictive to no device while maintaining an RPE of less than 3/10 to improve endurance and safety with standing tasks. Outcome: Ongoing Goal: Ambulation - Patient will ambulate 350-500 feet with modified independence and least restrictive to no device to improve ability to safely navigate home and community. Outcome: Ongoing PT treatment consisted of the following to progress towards the above goal(s): PT Evaluation and Treatment Time Therapeutic Activity Time Entry: 17 Treating Therapist: Ashanti Anthony PTA Additional Details: PT Co-Eval/Treatment Information Co-evaluation/co-treatment performed?: No simultaneous skilled care performed PPE used during patient interaction: gloves Patient location at end of session: bed with head of bed elevated Alarms on at end of session: bed alarm Needs in reach. Time In: 818 Time Out: 835 Total Visit Time: 17 minutes Total Treatment Time (skilled, billable minutes): 17 minutes Upon discontinuation of Acute Care Physical Therapy Services or patient discharge from the hospital this note represents the current Physical Therapy Discharge Summary. Palliative Medicine Consult Note Impression: Tiny Marte is a 63 y.o. female with a PMH relevant for metastatic breast CA (mets to brain, bone, lung). Admitted for management of N/V and FTT. Our team is consulted for assistance with symptom management. Assessment/Plan: Palliative Care by Specialist: - Code Status: Full Code. Addressed this encounter: No - Palliative Performance Status: 40% - Goals of Care: have not discussed in this encounter - I did not assess capacity today. - The patient does not have an HPOA. Spouse is legal next of kin Garrett Marte [phone] - Patient established with [facility]. We can manage opioid prescriptions at discharge. - Oxycodone liquid solution ~$90 OOP for 21 day supply. Methadone and naloxone script updated to [facility] 05/27. Sent Oxycodone tablets for pickup at local pharmacy on 05/31. Patient and spouse updated on scripts. Palliative appt scheduled for 06/18/2024. Nausea - moderately controlled Subacute worsening over weeks and new MRI findings w/ diffuse parenchymal mets, concern that elevated intracranial pressure could be driving large portion of the nausea burden. Much improved with medication adjustments - Continue olanzapine 5mg at bedtime (increased 05/19) - Continue haldol 0.5mg PO/IV q6h PRN but make 2nd line - Continue zofran to 4mg PO/IV q4h PRN but make 1st line - Avoid phenergan given concern for sedation w/ anticholinergic meds Anxiety Agitation-poorly controlled - Discontinue hydroxyzine oral solution 10mg Q6hr PRN - change haldol to agitation only - add zyprexa 2.5 mg q6h prn; 1st line anxiety and agitation - consider Neuro Onc consult given worsening AMS in setting of brain mets Cancer Related Pain moderately controlled Neuropathic Pain Chest wall Pain Etiology of pain is primarily due to malignant burden w/ known diffuse bony mets. Concern with patient's ability to tolerate pills given level of nausea. Does not seem to have adequate response to either butrans patch or IV buprenorphine and notes worsening of pain over last few days. Discussed rotation to methadone favoring liquid formulation and likely beneficial for bony mets. - Long acting opioid: - Continue Methadone 5mg PO conc liquid Q8hr (increased 05/27) --Last EKG 05/26 QTc 408 - Short acting opioids: -- Continue PO liquid oxycodone to 5-10mg q4h PRN - Monitor for opioid toxicities including oversedation/worsening mental status, respiratory depression, constipation, urinary retention, myoclonus, and uncontrolled nausea/vomiting. - Adjuvants: -- continue lidocaine patches over chest wall for MSK discomfort -- S/p zometa x1 on 05/19 for bony pain -- APAP PRN Opioid Induced Constipation - moderately controlled - Avoid docusate as it is likely ineffective for pt's constipation - Senna 2 tabs BID as tolerated - Continue Miralax 17g qday PRN as tolerated - Start bisacodyl suppository qday PRN Last Bowel Movement: 05/28/24 Insomnia - poorly controlled Likely related to uncontrolled symptoms. Medical management as above. - add Melatonin 6mg PO at bedtime - zyprexa as above Complexity. Any conditions listed below are present on admission unless otherwise specified.. We will continue to follow. 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 Staff reported that atarax has not helped and pt is not sleeping well despite zyprexa. 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 Physical Exam: Temp: [97.5 F (36.4 C)-98.3 F (36.8 C)] 98.3 F (36.8 C) Pulse (Heart Rate): [84-106] 104 Resp Rate: [16-18] 17 BP: (142-178)/(77-113) 148/93 O2 Sat (%): [88 %-99 %] 95 % Weight: [56.7 kg (124 lb 14.4 oz)] 56.7 kg (124 lb 14.4 oz) CONSTITUTIONAL/GENERAL: NAD, appears to be resting EYES: closed RESPIRATORY: Unlabored, normal effort; Symmetric chest wall rise NEUROLOGIC: No gross motor or sensory deficits appreciated Data Reviewed: Lab Results Component Value Date WBC 5.49 05/30/2024 HGB 9.5 (L) 05/30/2024 HCT 30.0 (L) 05/30/2024 PLATELET 362 05/30/2024 SODIUM 133 (L) 05/30/2024 POTASSIUM 4.0 05/30/2024 CHLORIDE 94 (L) 05/30/2024 MAGNESIUM 1.7 05/30/2024 CALCIUM 9.5 05/20/2024 CO2 31 05/30/2024 BUN 6 (L) 05/30/2024 CREATSERUM 0.39 (L) 05/30/2024 INR 1.0 05/27/2024 ALBUMIN 3.0 (L) 05/28/2024 AST 69 (H) 05/28/2024 ALT 37 05/28/2024 ALKPHOS 219 (H) 05/28/2024 BILITOTAL 0.4 05/28/2024 BILIDIRECT 0.2 05/28/2024 Estimated Creatinine Clearance: 124 mL/min (A) (by C-G formula based on SCr of 0.39 mg/dL (L)). Labs/results reviewed: Chem-7, LFTs, CBC, INR Lab review summary: - labs reviewed and appropriate for current symptom management regimen Summary of imaging results: MRI Brain 05/19/24 IMPRESSION: 1. Numerous enhancing lesions scattered throughout the brain parenchyma, compatible with intracranial metastatic disease. No significant mass effect. No intracranial hemorrhage. 2. Dural thickening enhancement along both sides of the falx, concerning for possible dural metastases. 3. Patchy areas of abnormal marrow signal within the calvarium, concerning for osseous metastatic disease. 4. Prominent pituitary gland with a small 5 mm hypoenhancing focus within the right aspect of the pituitary gland. I independantly interpreted the following medicine tests: - EKG: Date:05/26/24, QTc: 408 ms Clinical assessment, tests and recommendations were discussed with: - CMG ISHA - bedside nurse CARDIOLOGY CONSULT PROGRESS NOTE Cardiology consult 05/29/2024 for pericardial effusion HPI I saw Ms. Tiny Marte in follow-up on 05/30/2024. She is a 63 y.o. female with a history of metastatic breast cancer with malignancy pleural effusions s/p PleurX and chronic pericardial effusion admitted on 05/18/24 with failure to thrive, consult for effusion. ASSESSMENT AND PLAN Pericardial effusion: chronic - TTE 05/28/24 showed a moderate sized pericardial effusion with no clear evidence of tamponade. There is respiratory variation of MV & TV inflow velocities but no RA or RV collapse - no urgent need for a pericardiocentesis - thoracic surgery consulted for a possible pericardial window- no plan for a window Other problems New brain mets - MRI brain (05/19), with numerous enhancing lesions scattered throughout the brain parenchyma, no mass effect Bilateral Pleural effusions, s/p Right pleuryx catheter placed on 04/06 at OSH - Chest xray 05/26 showed a mild degrease in size of moderate right pleural effusion INTERVAL HISTORY/REVIEW OF SYSTEMS Over the last day, she had no acute events. She admits to feeling restless, anxious and unable to sellp. Review of Systems Constitutional: Positive for decreased appetite and malaise/fatigue. Cardiovascular: Positive for dyspnea on exertion. Negative for chest pain, leg swelling and palpitations. Respiratory: Positive for shortness of breath. Gastrointestinal: Negative for abdominal pain and nausea. Neurological: Negative for headaches. Psychiatric/Behavioral: Positive for hallucinations. PHYSICAL EXAM BP (!) 148/96 (BP Location: Right arm, BP Position: Lying) Pulse 102 Temp 97.5 F (36.4 C) (Oral) Resp 18 Ht 1.6 m (5' 2.99 ) Wt 54.7 kg (120 lb 9.5 oz) SpO2 93% BMI 21.37 kg/m Smoking Status Former Constitutional: Awake, cooperative female in no distress HEENT: Normocephalic, atraumatic, anicteric sclerae, no carotid bruits appreciated Chest: Respiratory effort unlabored. Lungs are clear with decreased BS in bases bilaterally, O2-3 L nasal cannula Cardiovascular: No JVD appreciated. Normal rate & regular rhythm; S1 normal, S2 normal., no gallop, no friction rub or murmur heard. Abdomen: Soft, non-tender, non-distended. +BS. Extremities: No peripheral edema. No stasis dermatitis. Radial, dorsalis pedis and posterior tibial pulses are 2+ bilaterally. Neurological: Alert and oriented to person, place and time. Skin: Warm, dry. No cyanosis. Nails show no clubbing. CARDIOVASCULAR IMAGING/DATA Results for orders placed during the hospital encounter of 05/18/24 ECHOCARDIOGRAM LIMITED/FOLLOWUP 05/28/2024 (Final) Interpretation Summary Limited study. Normal LV and RV function. Estimated LVEF 65-70%. Mild tricuspid regurgitation. Estimated RVSP 37 mmHg. Moderate pericardial effusion. No clear evidence of tamponade. There is respiratory variation of mitral and tricuspid valve inflow velocities, but no evidence of RA or RV collapse. IVC is non-dilated and decreases in size with inspiration. 24 hour telemetry (personally reviewed): off ADDITIONAL DATA REVIEWED Intake/Output Summary (Last 24 hours) at 05/30/2024 0654 Last data filed at 05/29/2024 0857 Gross per 24 hour Intake -- Output 450 ml Net -450 ml Temp: [97.5 F (36.4 C)-98.2 F (36.8 C)] 97.5 F (36.4 C) Pulse (Heart Rate): [92-106] 102 Resp Rate: [16-18] 18 BP: (132-178)/(96-113) 148/96 O2 Sat (%): [88 %-98 %] 93 % Oxygen Therapy O2 Sat (%): 93 % O2 Device: nasal cannula Flow (L/min): 3 Body mass index is 21.37 kg/m . LABS Bun/Creat/Cl/CO2/Glucose: 6/0.39/94/31/109 (05/30 326) Na/K+/Phos/Mg/Ca: 133/4.0/3.4/1.7/-- (05/30 326) WBC/Hgb/Hct/Plts: 5.49/9.5/30.0/362 (05/30 204) No results found for: BNP No results found for: CHOLESTEROL , TRIG , HDL , LDLCALC , LDLDIRECT CURRENT MEDICATIONS: faMOTIdine 20 mg Oral Q12H Levothyroxine 75 mcg Oral Before BKF lidocaine 2 patch Transdermal Q24H Loratadine 10 mg Oral Daily Melatonin 6 mg Oral QHS Methadone 5 mg Oral Q8H OLANZapine 5 mg Oral QHS Pantoprazole 40 mg Intravenous Daily Polyethylene glycol 17 g Oral Q12H Senna 17.2 mg Oral Q12H Complexity. Hyponatremia - Secondary to fluid shifts. Monitor. . Malnutrition - Moderate Protein-Calorie Malnutrition (POA) (05/27/2024 9:00 AM) secondary to Chronic Illness (05/27/2024 9:00 AM) - Reviewed and agree with industrial registered nurse's recommendations. Any conditions listed below are present on admission unless otherwise specified. . Thank you for this consult. Please call with questions. We will continue to follow along. SHE[facility] Phone: [phone] CANCER MEDICINE INPATIENT PROGRESS NOTE TODAY'S DATE: 05/30/2024 ADMIT DATE: 05/18/2024 6:40 PM REASON FOR ADMISSION: Brain mets Primary Oncologist: Carlos He ASSESSMENT AND PLAN Tiny Marte is a 63 y.o. female with a PMH of GERD, hypothyroidism, pleural effusions s/p right pleurx 04/06/24, and metastatic breast cancer to bone, who presented as a direct admission for c/o nausea, vomiting, pain and FTT. ACUTE PROBLEMS New Brain Mets Osseus Metastatic Disease of the Spine L1 Pathological Fracture - Admitted with persistent nausea, vomiting, fatigue, and FTT - MRI brain (05/19), with numerous enhancing lesions scattered throughout the brain parenchyma, no mass effect - CTAP showing progression of osseous metastases as well as new disease in liver - MRI C/T/L spine with osseous metastatic disease throughout spine, and L1 pathological fracture - NSGY consulted: No surgical intervention recommended - RadOnc consulted: Plan for fractionated SRS (3 fractions) for her brain metastases. CT simulation completed 05/20 Previously planned for radiation to painful bone mets (right hip, lumbar spine), will be rescheduled. Patient is scheduled for radiation treatments 06/08-06/17/24 Anxiety Hallucinations - Etiology either due to hypoactive delirium or medications - PPM following and changes made on 05/30 Stopped atarax Added zyprexa 2.5 mg q6h prn for anxiety/agitation Made zofran 1st line nausea Haldol 2nd line nausea only (not anxiety) - Neuro onc consulted per PPM Recommended workup for hypoactive delirium (B12, folate, TSH, copper, thiamine, UA, head CT without contrast) - ordered 05/30 Order brain MRI if CT is insignificant Thiamine protocol once thiamine results are back Recommended regulating sleep wake cycles Increase melatonin to 9mg Moderate Pericardial Effusion - Known hx pericardial effusion - Echo (05/28) with moderate pericardial effusion, no evidence of tamponade - Cardiology consulted: Almost certainly etiology is malignant, no urgent pericardiocentesis is needed but likely will continue to progress. Would ask thoracic surgery to see about pericardial window. 05/30 - no urgent need for a pericardiocentesis - Thoracic surgery consulted: No evidence of ongoing tamponade. Cardiology following and will re-evaluate on Friday. No acute indication for pericardial window given debilitation and limited prognosis, would also appreciate pericardiocentesis and/or drain placement with fluid cytology and studies before operative intervention is considered Bilateral Pleural Effusions Acute on Chronic Hypoxemic Respiratory Failure - With baseline O2 2L at HS, requiring 2L continuously during admission - Etiology multifactorial, with known pleural effusions, also pericardial effusion - S/p recent R pleurx catheter placed at OSH on 04/06. 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 - CXR 05/26 with improved effusions - Discussed with IP attending, CLAUDIA Amin for the patient to drain up to 1L every other day for now - Will need walk of life test before discharge - Continuous pulse ox in place Anemia - With Hgb ~9-10 during admission, then acute drop to 8.8 on 05/29 - Likely partially chemo related, did have liver biopsy 05/27 - Repeat Hgb 9.2 on 05/29 - Trend daily CBC, monitor for any bleeding RLE Edema - Noted 05/27, unclear etiology - RLE doppler ordered for concern for RLE swelling noted during attending assessment on 05/27 (pending) Nausea / Vomiting FTT - Admitted with persistent nausea/vomiting and fatigue. Possibly 2/2 brain mets, hypercalcemia, also possibly infection with UTI - CXR unremarkable for acute process - UA unremarkable - PPM following: Continue olanzapine to 5mg at bedtime Continue haldol 0.5mg PO/IV q6h PRN (note doses <3mg / 24h should not prolong the qtc) Continue zofran to 4mg PO/IV q4h PRN 2nd line Avoid phenergan given concern for sedation w/ anticholinergic meds Cancer Related Pain - Pain to right side into right back and now left side, hips, legs. Relted to metastatic disease - Follows with PPM outpatient - PPM consulted: Methadone 2.5mg PO conc liquid Q8hr. (05/24 QTc 422) Continue PO oxycodone 5-10mg q4h PRN Continue lidocaine patches over chest wall for MSK discomfort Opioid Induced Constipation - Continue scheduled Senna and Miralax BID - Bisacodyl suppository qday PRN Insomnia - Increased to Melatonin 9mg PO at bedtime PRN on 05/30 per neuro onc Metastatic Breast Cancer - Follows with Dr. He - Known bone mets - S/p fixation and then radiation to right femur - Current tx: faslodex (C1D1 05/12) and ribociclib. Planning to switch to abemaciclib OP - Dr He notified 05/19 of results of MRIB and CT on admission, showing worsening metastatic disease. Recommended liver biopsy - IR consulted: s/p liver biopsy 05/27, path pending Complexity. Hyponatremia - Secondary to fluid shifts. Monitor. . Malnutrition - Moderate Protein-Calorie Malnutrition (POA) (05/27/2024 9:00 AM) secondary to Chronic Illness (05/27/2024 9:00 AM) - Reviewed and agree with industrial registered nurse's recommendations. Any conditions listed below are present on admission unless otherwise specified. .Metastatic Cancer, Location of Metastasis: see above Body mass index is 22.13 kg/m . RESOLVED PROBLEMS UTI - Urine culture positive for mixed microbes, s/p ceftriaxone (05/20-05/22). - Repeat urine cx (05/26): no growth Hypercalcemia of Malignancy - With Ca 13.6, albumin 3.6 on admission. - S/p zometa and calcitonin x1 on 05/19. S/p MVF, off since 05/21 - PTH intact low at 9 and vit d 40.8. PTHrp hemolyzed - Calcium now stabilized - Continue to trend ical daily CHRONIC PROBLEMS Hypothyroidism - cont home levothyroxine GERD - cont home pepcid DVT prophylaxis: lovenox held for bx on 05/27. Continue to hold with pending CT head Diet: DIET REGULAR Continuous Infusions: Code Status: Full Code Serious Illness Conversation: NA Disposition: The patient will require continued hospitalization for pericardial effusion, monitoring respiratory status, pain/anxiety control. They are expected to discharge in 2-3 days. Follow-ups made: NSGY 08/26/24, scoliosis X-ray 08/26, Med onc 06/01, Rad onc on 06/08 Follow-ups needed: - SUBJECTIVE Both nursing staff and patient's reported that the patient has been having hallucinations overnight and in the morning. Patient was seen sitting on the bed, appeared restless and anxious. She requested to move to the chair and then back to the bed within minutes. States she is feeling very anxious and has been having hallucinations since this morning. Reports that the medications have not improved her anxiety. Denies shortness of breath, remains on 2L NC. Sates she feels weak and is going to pass out. Did not have a BM yesterday and started taking miralax and senna again this morning. Denies fever, chills, chest pain, vomiting. All questions answered. Review of systems otherwise negative. Right pleurX catheter was drained yesterday and will be drained tomorrow - patient states it is done every other day. OBJECTIVE Temp: [97.5 F (36.4 C)-98.2 F (36.8 C)] 97.7 F (36.5 C) Pulse (Heart Rate): [84-106] 84 Resp Rate: [16-18] 16 BP: (133-178)/(77-113) 142/77 O2 Sat (%): [88 %-99 %] 99 % Weight: [56.7 kg (124 lb 14.4 oz)] 56.7 kg (124 lb 14.4 oz) General: A&O to self, time, place, and situation. NAD. Anxious HEENT: EOMI, anicteric sclerae, conjunctivae & lids symmetrical. No signs of inflammation. Neck no rigidity. Not STILLAGUAMISH. MMM Respiratory: No crackles/rhonchi/wheezes, no increased WOB. On 2L NC. Right PleurX catheter capped, covered with dressing Cardiovascular: RRR, no murmurs, rubs, clicks or gallops, no peripheral edema noted on bilateral upper or lower extremties, cap refill brisk. Abdomen: Normoactive BS. Abdomen soft, RUQ tender, non distended. No palpable masses. Neurologic: No focal deficits. Speech clear and coherent. Follows commands. Skin: Color, texture, and turgor normal. No rashes or lesions. Bx dressing C/D/I Psychosocial: Affect appropriate. Anxious PIV with no evidence of erythema, drainage, or tenderness. Dressing is clean, dry, and intact. Plan of care reviewed with the attending, Dr. Shaye Fine MD: in agreement. Maricarmen House PA-C Pager [phone] [facility] Oncology Inpatient Services may be reached daily from 7a-7p at pager number listed on [employer]. After these hours please page moonlighter retail client solutions consultant. Associated attestation - Shaye Fine MD - 05/30/2024 5:03 PM EST I have seen the patient with teams on 05/30/24, spent 35 minutes to perform critical or yarbrough portions of the service, participated in the management of the patient. I agree with the physical exam as stated below. Case discussed in the rounds with the team. I have personally reviewed all available clinical data related to today's encounter including, but not limited to, labs, radiology images and reports, procedure reports, outside medical records, and EKG/telemetry tracings if applicable. I agree with the documented assessment and plan. SUBJECTIVE AND INTERVAL HISTORY Pt anxious and can't sleep at night. Per her , got days and nights all mixed up. Vitals: 05/30/24 1600 BP: (!) 148/93 Pulse: 104 Resp: 17 Temp: 98.3 F (36.8 C) SpO2: 95% Wt Readings from Last 1 Encounters: 12/29/24 56.7 kg (124 lb 14.4 oz) Body mass index is 22.13 kg/m . Intake/Output last 3 shifts: I/O last 3 completed shifts: In: 0 Out: 150 [Other:150] Exam Pt fidgety Heart- RRR no murmur or gallop Lungs- CTA aamir No focal neuro deficits. Assessment/Plan: Tiny Marte is a 63 y.o. female with a PMH of GERD, hypothyroidism, pleural effusions s/p right pleurx 04/06/24, and metastatic breast cancer to bone, who presented as a direct admission for c/o nausea, vomiting, pain and FTT. Brain mets Osseous mets of the spine L1 pathologic fracture No surgical intervention recommended per NS Rad/Onc plan for SRS; CT sim'ed on 05/20/24 Plan for RT from 06/08/24- 06/17/24. Anxiety Hallucination PPM discontinued Atarax; started Zyprexa on 05/30/24 as the first line anxiety. Increased Melatonin 9 mg at bedtime on 05/30/24. Moderate pericardial effusion No evidence of tamponade per TTE on 05/28/24 No plan for pericardiocentesis. Acute on chronic respiratory failure Bilateral pleural effusion S/p R pleurX cath placement on 04/06/24; drain up to 1L every other day. Requiring continuous 2L nc O2; previously on 2 L at night. Metastatic Breast Cancer Follows with Dr. He H/o bone mets, s/p ORIF of the R femur S/p liver BX on 05/27/24- pending Currently on Faslodex and Ribociclib but plan to switch to Abemaciclib. Disposition; TBD Expectant DC; TBD Please refer to the ISHA note below for further details. Shaye Fine MD Oxygen Therapist Division of Hospital Medicine Pager [phone] Paged: [place] Wen [phone] [address] Could you pass onto day team that patient is requesting to see provider LUKASZ because she feels as if she is losing her mind . Vitals WNL. Thanks [phone] Paged: [facility] [place] [phone] [address] Pt BP 154/102 MAP 119. Pt denies s/s. Please advise Thanks [phone] CANCER MEDICINE INPATIENT PROGRESS NOTE TODAY'S DATE: 05/29/2024 ADMIT DATE: 05/18/2024 6:40 PM REASON FOR ADMISSION: Brain mets Primary Oncologist: Carlos He ASSESSMENT AND PLAN Tiny Marte is a 63 y.o. female with a PMH of GERD, hypothyroidism, pleural effusions s/p right pleurx 04/06/24, and metastatic breast cancer to bone, who presented as a direct admission for c/o nausea, vomiting, pain and FTT. ACUTE PROBLEMS New Brain Mets Osseus Metastatic Disease of the Spine L1 Pathological Fracture - Admitted with persistent nausea, vomiting, fatigue, and FTT - MRI brain (05/19), with numerous enhancing lesions scattered throughout the brain parenchyma, no mass effect - CTAP showing progression of osseous metastases as well as new disease in liver - MRI C/T/L spine with osseous metastatic disease throughout spine, and L1 pathological fracture - NSGY consulted: No surgical intervention recommended - RadOnc consulted: Plan for fractionated SRS (3 fractions) for her brain metastases. CT simulation completed 05/20 Previously planned for radiation to painful bone mets (right hip, lumbar spine), will be rescheduled. Patient is scheduled for radiation treatments 06/08-06/17/24 - Mental status stable Moderate Pericardial Effusion - Known hx pericardial effusion - Echo (05/28) with moderate pericardial effusion, no evidence of tamponade - Cardiology consulted: Almost certainly etiology is malignant, no urgent pericardiocentesis is needed but likely will continue to progress. Would ask thoracic surgery to see about pericardial window. - Thoracic Surgery consulted to eval for pericardial window Bilateral Pleural Effusions Acute on Chronic Hypoxemic Respiratory Failure - With baseline O2 2L at HS, requiring 2L continuously during admission - Etiology multifactorial, with known pleural effusions, also pericardial effusion - S/p recent R pleurx catheter placed at OSH on 04/06. 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 - CXR 05/26 with improved effusions - Discussed with IP attending, Dr. Bhakta, OK for the patient to drain up to 1L every other day for now - Will need walk of life test before discharge Anemia - With Hgb ~9-10 during admission, then acute drop to 8.8 on 05/29 - Likely partially chemo related, did have liver biopsy 05/27 - Repeat Hgb 9.2 on 05/29 - Trend daily CBC, monitor for any bleeding RLE Edema - Noted 05/27, unclear etiology - RLE doppler ordered for concern for RLE swelling noted during attending assessment on 05/27 (pending) Nausea / Vomiting FTT - Admitted with persistent nausea/vomiting and fatigue. Possibly 2/2 brain mets, hypercalcemia, also possibly infection with UTI - CXR unremarkable for acute process - UA unremarkable - PPM following: Continue olanzapine to 5mg at bedtime Continue haldol 0.5mg PO/IV q6h PRN (note doses <3mg / 24h should not prolong the qtc) Continue zofran to 4mg PO/IV q4h PRN 2nd line Avoid phenergan given concern for sedation w/ anticholinergic meds Hypercalcemia of Malignancy - With Ca 13.6, albumin 3.6 on admission. - S/p zometa and calcitonin x1 on 05/19. S/p MVF, off since 05/21 - PTH intact low at 9 and vit d 40.8. PTHrp hemolyzed - Calcium now stabilized - Continue to trend ical daily Cancer Related Pain Anxiety - Pain to right side into right back and now left side, hips, legs. Relted to metastatic disease - Follows with PPM outpatient - PPM consulted: Methadone 2.5mg PO conc liquid Q8hr. (05/24 QTc 422) Continue PO oxycodone 5-10mg q4h PRN Continue lidocaine patches over chest wall for MSK discomfort Continue hydroxyzine PRN for anxiety Opioid Induced Constipation - Continue scheduled Senna and Miralax BID - Bisacodyl suppository qday PRN Insomnia - Melatonin 6mg PO at bedtime PRN Metastatic Breast Cancer - Follows with Dr. He - Known bone mets - S/p fixation and then radiation to right femur - Current tx: faslodex (C1D1 05/12) and ribociclib. Planning to switch to abemaciclib OP - Dr He notified 05/19 of results of MRIB and CT on admission, showing worsening metastatic disease. Recommended liver biopsy - IR consulted: s/p liver biopsy 05/27, path pending Complexity. Hyponatremia - Secondary to fluid shifts. Monitor. . Malnutrition - Moderate Protein-Calorie Malnutrition (POA) (05/27/2024 9:00 AM) secondary to Chronic Illness (05/27/2024 9:00 AM) - Reviewed and agree with industrial registered nurse's recommendations. Any conditions listed below are present on admission unless otherwise specified. .Metastatic Cancer, Location of Metastasis: see above Body mass index is 21.37 kg/m . RESOLVED PROBLEMS UTI - Urine culture positive for mixed microbes, s/p ceftriaxone (05/20-05/22). - Repeat urine cx (05/26): no growth CHRONIC PROBLEMS Hypothyroidism - cont home levothyroxine GERD - cont home pepcid DVT prophylaxis: lovenox held for bx on 05/27 Diet: DIET REGULAR Continuous Infusions: Code Status: Full Code Serious Illness Conversation: NA Disposition: The patient will require continued hospitalization for pericardial effusion, monitoring respiratory status, pain/anxiety control. They are expected to discharge in 2-3 days. Follow-ups made: NSGY 08/26/24, scoliosis X-ray 08/26, Med onc 06/01, Rad onc on 06/08 Follow-ups needed: - SUBJECTIVE No acute events overnight. Patient seen resting in bed with at bedside. States she is feeling anxious this morning, states she feels as though she cannot catch her breath. Remains on 2L NC. States nausea has been better, had one episode of diarrhea yesterday. Denies fever, chills, chest pain, vomiting. All questions answered. Review of systems otherwise negative. Discussed draining right pleurX catheter this morning. OBJECTIVE Temp: [97.6 F (36.4 C)-98.7 F (37.1 C)] 97.7 F (36.5 C) Pulse (Heart Rate): [92-113] 92 Resp Rate: [16-18] 16 BP: (131-161)/(85-100) 133/97 O2 Sat (%): [96 %-99 %] 98 % General: A&O to self, time, place, and situation. NAD. Anxious HEENT: EOMI, anicteric sclerae, conjunctivae & lids symmetrical. No signs of inflammation. Neck no rigidity. Not STILLAGUAMISH. MMM Respiratory: diminished right base, no crackles/rhonchi/wheezes, no increased WOB. On 2L NC. Right PleurX catheter capped, covered with dressing Cardiovascular: RRR, no murmurs, rubs, clicks or gallops, no peripheral edema noted on bilateral upper or lower extremties, cap refill brisk. Abdomen: Normoactive BS. Abdomen soft, RUQ tender, non distended. No palpable masses. Neurologic: No focal deficits. Speech clear and coherent. Follows commands. Skin: Color, texture, and turgor normal. No rashes or lesions. Bx dressing C/D/I Psychosocial: Affect appropriate. anxious PIV with no evidence of erythema, drainage, or tenderness. Dressing is clean, dry, and intact. Plan of care reviewed with the attending, Dr. Samy Rosario MD: in agreement. Ayala Matos [facility] Pager [phone] Cancer Medicine & Medical Oncology Inpatient Services may be reached daily from 7a-7p at pager number listed on [employer]. After these hours please page moonlighter retail client solutions consultant. Associated attestation - Samy Roasrio MD - 05/29/2024 2:19 PM EST I saw and evaluated the patient with our Advanced Practice Provider, Ayala Matos, today. For today's visit, I reviewed the nursing flowchart, list of medications and pertinent laboratory and diagnostic tests. I provided a substantive portion of the care for this patient. I personally performed all aspects of the medical decision making for this encounter. I have reviewed and verified this progress note and it accurately reflects our care. I have spent 51 minutes providing services today independent from procedures and other care providers. S/p liver biopsy on 05/27. Cancer related pain in the spine well controlled off IV bup. NSGY consult for opinion of spine metastatic disease, will need follow up but no intervention indicated now. Rad onc followed and plan for radiation from 06/08/23-06/14 and SRT from 06/15-06/18. Patient has R extremity swelling, check R duplex, pending report. Echo 05/28 revealed moderate size pericardial effusion (increase in size from last echo in March), no clear evidence of tamponade. Consulted cards, recommended consulting thoracic surgery for a pericardial window. Nature of the pericardial effusion is likely malignant. R pleural effusion improved on chest x-ray 05/26 Paged: CMG Moonlighter [phone] Estuardo Pt BP 148/88 MAP 112. Previous check was 158/100. Pt denies s/s. Please advise Thanks [id number] Palliative Medicine Consult Note Impression: Tiny Marte is a 63 y.o. female with a PMH relevant for metastatic breast CA (mets to brain, bone, lung). Admitted for management of N/V and FTT. Our team is consulted for assistance with symptom management. Assessment/Plan: Palliative Care by Specialist: - Code Status: Full Code. Addressed this encounter: No - Palliative Performance Status: 40% - Goals of Care: have not discussed in this encounter - I did not assess capacity today. - The patient does not have an HPOA. Spouse is legal next of kin Garrett Marte [phone] - Patient established with [facility]. We can manage opioid prescriptions at discharge. - Oxycodone liquid solution ~$90 OOP for 21 day supply. Methadone and naloxone script updated to [facility] 05/27. Sent Oxycodone tablets for pickup at local pharmacy on 05/31. Patient and spouse updated on scripts. Palliative appt scheduled for 06/18/2024. Nausea - moderately controlled Subacute worsening over weeks and new MRI findings w/ diffuse parenchymal mets, concern that elevated intracranial pressure could be driving large portion of the nausea burden. Much improved with medication adjustments - Continue olanzapine to 5mg at bedtime (increased 05/19) - Continue haldol 0.5mg PO/IV q6h PRN (note doses <3mg / 24h should not prolong the qtc) - Continue zofran to 4mg PO/IV q4h PRN 2nd line - Avoid phenergan given concern for sedation w/ anticholinergic meds - Dexamethasone 5 day burst last dose 05/24 Cancer Related Pain moderately controlled Neuropathic Pain Chest wall Pain Etiology of pain is primarily due to malignant burden w/ known diffuse bony mets. Concern with patient's ability to tolerate pills given level of nausea. Does not seem to have adequate response to either butrans patch or IV buprenorphine and notes worsening of pain over last few days. Discussed rotation to methadone favoring liquid formulation and likely beneficial for bony mets. - Long acting opioid: - Continue Methadone to 5mg PO conc liquid Q8hr (increased 05/27) --Last EKG 05/26 QTc 408 - Short acting opioids: -- Continue PO liquid oxycodone to 5-10mg q4h PRN -- Discontinue IV buprenex 0.09-0.15mg q4h PRN if unable to tolerate PO -- Please wait at least one hour after giving oral opioid prior to giving IV - Monitor for opioid toxicities including oversedation/worsening mental status, respiratory depression, constipation, urinary retention, myoclonus, and uncontrolled nausea/vomiting. - Adjuvants: -- Steroids as above may also provide analgesic benefit -- continue lidocaine patches over chest wall for MSK discomfort -- S/p zometa x1 on 05/19 for bony pain -- APAP PRN Opioid Induced Constipation - moderately controlled - Avoid docusate as it is likely ineffective for pt's constipation - Increase Senna to 2 tabs BID as tolerated - Continue Miralax 17g qday PRN as tolerated - Start bisacodyl suppository qday PRN Last Bowel Movement: 05/25/24 Insomnia - moderately controlled Likely related to uncontrolled symptoms. Medical management as above. - Melatonin 6mg PO at bedtime PRN Anxiety Restlessness, anxiety, inability to sit still. Likely due to steroids but also having trouble with getting comfortable due to pain - optimize opioid regimen as above - agree with decrease to steroid dose - Continue hydroxyzine oral solution 10mg Q6hr PRN - Haldol as above can help with anxiety Complexity. Any conditions listed below are present on admission unless otherwise specified.. We will continue to follow. 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 Discussed stopping IV buprenorphine. Reviewed regimen of scheduled methadone with prn oxycodone at home. Currently taking 10mg dose of oxy but could potentially decrease to 5mg at home if pain improves. Some increased drowsiness but also may not be sleeping great in the hospital. Likely also adjusting to new meds. Will reach out to clinic if they feel she is too drowsy with increased methadone dosing - Does note improvement to pain with regimen - Nausea much improved on current regimen - Slight confusion overnight but quickly reoriented per spouse-- likely due to poor sleep. 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 mets Constipation: yes Last Bowel Movement: 05/25/24 Analgesic Medications (24hr use): - IV bup -0.45 - 50mg oxycodone - methadone 15mg OME (Oral Morphine Equivalents): 05/28: 142.5 OME + methadone 15mg 05/27: 90 OME + methadone 7.5mg 05/24: 37.5 OME + methadone 7.5mg 05/23: 114 OME 05/21: 73.5 ome 05/20: 39 ome 05/19: ~37 Physical Exam: Temp: [97.5 F (36.4 C)-98.6 F (37 C)] 97.8 F (36.6 C) Pulse (Heart Rate): [86-123] 117 Resp Rate: [10-32] 18 BP: (98-161)/(53-106) 142/87 O2 Sat (%): [90 %-99 %] 98 % Weight: [54.7 kg (120 lb 9.5 oz)] 54.7 kg (120 lb 9.5 oz) CONSTITUTIONAL/GENERAL: Chronically ill appearing, grimace with positioning, NAD EYES: Pupils symmetric; Anicteric sclerae, moist conjunctivae RESPIRATORY: Unlabored, normal effort; Symmetric chest wall rise NEUROLOGIC: No gross motor or sensory deficits appreciated PSYCHIATRY: Alert. Appropriate affect Data Reviewed: Lab Results Component Value Date WBC 6.98 05/28/2024 HGB 10.4 (L) 05/28/2024 HCT 33.1 (L) 05/28/2024 PLATELET 478 (H) 05/28/2024 SODIUM 133 (L) 05/28/2024 POTASSIUM 4.3 05/28/2024 CHLORIDE 96 (L) 05/28/2024 MAGNESIUM 1.8 05/28/2024 CALCIUM 9.5 05/20/2024 CO2 24 05/28/2024 BUN 9 05/28/2024 CREATSERUM 0.35 (L) 05/28/2024 INR 1.0 05/27/2024 ALBUMIN 3.0 (L) 05/28/2024 AST 69 (H) 05/28/2024 ALT 37 05/28/2024 ALKPHOS 219 (H) 05/28/2024 BILITOTAL 0.4 05/28/2024 BILIDIRECT 0.2 05/28/2024 Estimated Creatinine Clearance: 138 mL/min (A) (by C-G formula based on SCr of 0.35 mg/dL (L)). Labs/results reviewed: Chem-7, LFTs, CBC, INR, and OARRs Lab review summary: - labs reviewed and appropriate for current symptom management regimen - patient with evidence of renal impairment External Notes: OARRS. Summary: -- Active Rx for butrans 5mcg/hr patch, oxycodone 5mg #56 14d supply -- Previous Rx for tramadol 50 Date: 05/11, Outpatient Palliative note, Summary: Pain in back, pelvis, ribs w/ osseous mets, oxycodone making drowsy, started butrans, olanzapine for nausea, draining 400-500 ml from pleur-x daily Date: 05/12, Outpatient med onc note, Summary: Plan for RT from 05/10- for R femoral fracture, OK to proceed with C2D1 ribociclib/fulvestrant. Plan for zometa w/ dental clearance. Summary of imaging results: MR brain w/ numerous enhancing lesions consistent with metastatic disease in parenchyma, dura, and skull. I independently interpreted the following imaging: CT abd pelvis from 05/19 -- moderate colonic stool burden, possible new hepatic mets? I independantly interpreted the following medicine tests: - EKG: Date:04/28, QTc: 422 ms Clinical assessment, tests and recommendations were discussed with: - CMG RESTAURANT CREW and attending - bedside nurse - patient - family spouse CANCER MEDICINE INPATIENT PROGRESS NOTE TODAY'S DATE: 05/28/2024 ADMIT DATE: 05/18/2024 6:40 PM REASON FOR ADMISSION: FTT, n/v Primary Oncologist: Carlos He ASSESSMENT AND PLAN Tiny Marte is a 63 y.o. female with a PMH of GERD, hypothyroidism, pleural effusions s/p right pleurx, and metastatic breast cancer who was a direct admission for c/o nausea, vomiting, pain and FTT. ACUTE PROBLEMS Nausea, vomiting FTT hx Brain mets - c/o persistent nausea/vomiting and fatigue, worsening over past week with poor po intake. Possibly 2/2 brain mets, hypercalcemia & UTI (work up as below) - CXR unremarkable for acute process - CTAP showing progression of osseous metastases as well as new disease in liver - MRI brain ordered: Showing metastatic spread to brain. Oncologist notified of results - Rad onc c/s: completed simulation for planning brain and spinal radiation from 06/08-06/17 - PPM following, recs as of 05/24: Continue olanzapine to 5mg at bedtime (increased 05/19) Continue haldol 0.5mg PO/IV q6h PRN (note doses <3mg / 24h should not prolong the qtc) Continue zofran to 4mg PO/IV q4h PRN 2nd line Avoid phenergan given concern for sedation w/ anticholinergic meds Dexamethasone 5 day burst last dose 05/24 Hypercalcemia of malignancy- improving - Ca 13.6, albumin 3.6 on admission. iCa daily and calcium q6. After discussion with pharmacy, zometa and calcitonin x1 given 05/19. 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 - patient drained 500 cc off her pleurx 05/23 and states she felt like she could keep draining - discussed with IP attending, Dr. Bhakta, CLAUDIA for the patient to drain up to 1L every other day for now - incentive spirometer, Pulm toilet -c/w O2 therapy, will try to wean to baseline 02 (2L NC nocturnal) as appropriate 05/27: Repeat CXR with mild decrease in size of moderate rt pleural effusion with no other changes from previous imaging. Will hold off on PVAT for left thoracentesis -Given pt's hx of malignant pericardial effusion, echo (pending) was ordered overnight on 05/27 to assess for increased effusion due to tachycardia overnight -RLE doppler ordered for concern for RLE swelling noted during attending assessment on 05/27 (pending) -Walk of life test ordered on 05/28 Pathologic fractures of L1 -Recommend MRI total spine: Completed with mild compression Fx of L1, and mets throughout the spine. - Rad Onc consulted, planning on lumbar spine radiation as above -NSGY reviewed imaging and recommend no acute intervention at this time Cancer related pain Anxiety - c/o pain to right side into right back and now left side, hips, legs. Same pain, just worse - follows with PPM outpatient - cont home butrans patch and oxycodone prn. Dilaudid prn IV break thru pain - c/s PPM, recs as of 05/24: Long acting opioid: Methadone 2.5mg PO conc liquid Q8hr. 05/24 QTc 422 Continue PO liquid oxycodone to 5-10mg q4h PRN Continue IV buprenex (if unable to tolerate PO)0.09-0.15mg q4h PRN if unable to tolerate PO (anticipate may need higher dose for upcoming procedure, CT sim, MRI of spine) Please wait at least one hour after giving oral opioid prior to giving IV Continue lidocaine patches over chest wall for MSK discomfort S/p zometa x1 on 05/19 for bony pain APAP PRN Continue hydroxyzine PRN -05/28: Will plan to discontinue IV pain medication to prepare for possible discharge tomorrow Opioid Induced Constipation - Avoid docusate as it is likely ineffective for pt's constipation - Scheduled increased Senna and Miralax BID 17g on 05/28 - bisacodyl suppository qday PRN Last Bowel Movement: 05/25/24 Insomnia - Melatonin 6mg PO at bedtime PRN Metastatic breast cancer - follows with Dr. He - known bone mets - s/p fixation and then radiation to right femur, last treatment 05/14 - current tx: faslodex (C1D1 05/12) and ribociclib. planning to switch to abemaciclib OP - MRIB and CTAP ordered as above. Dr He notified 05/19 of results. Asking for liver biopsy to be done IP vs OP, scheduled for 05/27 IP -Path pending on 05/28 Complexity. Hyponatremia - Secondary to fluid shifts. Monitor. . Malnutrition - Moderate Protein-Calorie Malnutrition (POA) (05/27/2024 9:00 AM) secondary to Chronic Illness (05/27/2024 9:00 AM) - Reviewed and agree with industrial registered nurse's recommendations. Any conditions listed below are present on admission unless otherwise specified. . Body mass index is 21.37 kg/m . RESOLVED PROBLEMS UTI - Urine culture positive for mixed microbes, will treat with ceftriaxone 3 days (05/20-05/22). - repeat Urine cx pending-05/26 CHRONIC PROBLEMS Hypothyroidism - cont home levothyroxine GERD - cont home pepcid DVT prophylaxis: lovenox held for bx on 05/27 Diet: DIET REGULAR Continuous Infusions: Code Status: Full Code Serious Illness Conversation: NA Disposition: The patient will require continued hospitalization for cancer related pain management, echo eval for effusion and LE doppler for extremity swelling. They are expected to discharge in 1-2 days. Today they are expected to be medically ready for discharge in 1-2 days Follow-ups made: NSGY 08/26/24, scoliosis X-ray 08/26, Med onc 06/01, Rad onc on 06/08 Follow-ups needed: - JOHN Marte was seen sitting up in bed with family at the bedside. Reports that she is still feeling pretty anxious this morning and requesting time off of the unit with . Reports that her SOB has not increased from her baseline. Discussed echo and doppler to evaluate for effusion and LE swelling. Denies urine symptoms this AM . Endorses lower back pain and abdominal pain. Last BM 05/25 OBJECTIVE Temp: [97.5 F (36.4 C)-98.6 F (37 C)] 98.6 F (37 C) Pulse (Heart Rate): [86-123] 123 Resp Rate: [10-32] 18 BP: (98-161)/(53-106) 132/92 O2 Sat (%): [90 %-99 %] 90 % Weight: [54.7 kg (120 lb 9.5 oz)] 54.7 kg (120 lb 9.5 oz) General: A&O to self, time, place, and situation. NAD. HEENT: EOMI, anicteric sclerae, conjunctivae & lids symmetrical. No signs of inflammation. Neck no rigidity. Not STILLAGUAMISH. MMM, no erythema, exudates, or lesions. Respiratory: diminished right base, no crackles/rhonchi/wheezes, no increased WOB. On 2L NC Cardiovascular: RRR, no murmurs, rubs, clicks or gallops, no peripheral edema noted on bilateral upper or lower extremties, cap refill brisk. Abdomen: Normoactive BS. Abdomen soft, RUQ tender, non distended. No palpable masses. Neurologic: No focal deficits. Speech clear and coherent. Follows commands. Skin: Color, texture, and turgor normal. No rashes or lesions. Bx dressing C/D/I Psychosocial: Affect appropriate. anxious PIV with no evidence of erythema, drainage, or tenderness. Dressing is clean, dry, and intact. R pleurx dressing C/D/I Plan of care reviewed with the attending, Dr. Rosario: in agreement. Sunni Khoury, ELIAN-BODY FITTER Pager [phone] [facility] Medical On[facility] Inpatient Services May be reached daily from 7a-7p at pager number listed on [facility]Genda. After these hours please page moonlighter retail client solutions consultant. Associated attestation - Samy Rosario MD - 05/28/2024 3:14 PM EST I saw and evaluated the patient with our Advanced Practice Provider, Sunni Khoury, today. For today's visit, I reviewed the nursing flowchart, list of medications and pertinent laboratory and diagnostic tests. I provided a substantive portion of the care for this patient. I personally performed all aspects of the medical decision making for this encounter. I have reviewed and verified this progress note and it accurately reflects our care. I have spent 51 minutes providing services today independent from procedures and other care providers. S/p liver biopsy on 05/27. Cancer related pain in the spine moderately controlled. Patient using around the clock oxycodone and used several doses of IV buprenorphine. Discussed with PPM and current dispo is being off IV medication for pain control, reason why she needs to be in the hospital being monitored. NSGY consult for opinion of spine metastatic disease, will need follow up but no intervention indicated now. Rad onc followed and plan for radiation from 06/08/23-06/14 and SRT from 06/15-06/18. Patient has R extremity swelling, check R duplex, in process. Patient has worsening tachycardia and moderate pericardial effusion last March, recheck echo. Echo 05/28 revealed moderate size pericardial effusion, no clear evidence of tamponade. Will consult cards, appreciate recs. Nature of the pericardial effusion is likely malignant. R pleural effusion improved on chest x-ray 05/26 CANCER MEDICINE INPATIENT PROGRESS NOTE TODAY'S DATE: 05/27/2024 ADMIT DATE: 05/18/2024 6:40 PM REASON FOR ADMISSION: FTT, n/v Primary Oncologist: Carlos He ASSESSMENT AND PLAN Tiny Marte is a 63 y.o. female with a PMH of GERD, hypothyroidism, pleural effusions s/p right pleurx, and metastatic breast cancer who was a direct admission for c/o nausea, vomiting, pain and FTT. ACUTE PROBLEMS Nausea, vomiting FTT hx Brain mets - c/o persistent nausea/vomiting and fatigue, worsening over past week with poor po intake. Possibly 2/2 brain mets, hypercalcemia & UTI (work up as below) - CXR unremarkable for acute process - CTAP showing progression of osseous metastases as well as new disease in liver - MRI brain ordered: Showing metastatic spread to brain. Oncologist notified of results - Rad onc c/s: completed simulation for planning brain and spinal radiation from 06/08-06/17 - PPM following, recs as of 05/24: Continue olanzapine to 5mg at bedtime (increased 05/19) Continue haldol 0.5mg PO/IV q6h PRN (note doses <3mg / 24h should not prolong the qtc) Continue zofran to 4mg PO/IV q4h PRN 2nd line Avoid phenergan given concern for sedation w/ anticholinergic meds Dexamethasone 5 day burst last dose 05/24 Hypercalcemia of malignancy- improving - Ca 13.6, albumin 3.6 on admission. iCa daily and calcium q6. After discussion with pharmacy, zometa and calcitonin x1 given 05/19. 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 - patient drained 500 cc off her pleurx 05/23 and states she felt like she could keep draining - discussed with IP attending, Dr. Bhakta, OK for the patient to drain up to 1L every other day for now - incentive spirometer, Pulm toilet -c/w O2 therapy, will try to wean to baseline 02 (2L NC nocturnal) as appropriate 05/27: Repeat CXR with mild decrease in size of moderate rt pleural effusion with no other changes from previous imaging. Will hold off on PVAT for left thoracentesis -Given pt's hx of malignant pericardial effusion, echo was ordered overnight to assess for increased effusion due to tachycardia overnight Pathologic fractures of L1 -Recommend MRI total spine: Completed with mild compression Fx of L1, and mets throughout the spine. - Rad Onc consulted, planning on lumbar spine radiation as above -NSGY reviewed imaging and recommend no acute intervention at this time Cancer related pain Anxiety - c/o pain to right side into right back and now left side, hips, legs. Same pain, just worse - follows with PPM outpatient - cont home butrans patch and oxycodone prn. Dilaudid prn IV break thru pain - c/s PPM, recs as of 05/24: Long acting opioid: Methadone 2.5mg PO conc liquid Q8hr. 05/24 QTc 422 Continue PO liquid oxycodone to 5-10mg q4h PRN Continue IV buprenex 0.09-0.15mg q4h PRN if unable to tolerate PO (anticipate may need higher dose for upcoming procedure, CT sim, MRI of spine) Please wait at least one hour after giving oral opioid prior to giving IV Continue lidocaine patches over chest wall for MSK discomfort S/p zometa x1 on 05/19 for bony pain APAP PRN Continue hydroxyzine PRN Opioid Induced Constipation - Avoid docusate as it is likely ineffective for pt's constipation - Senna to 2 tabs BID as tolerated - Continue Miralax 17g qday PRN as tolerated - bisacodyl suppository qday PRN Last Bowel Movement: 05/25/24 Insomnia - Melatonin 6mg PO at bedtime PRN Metastatic breast cancer - follows with Dr. He - known bone mets - s/p fixation and then radiation to right femur, last treatment 05/14 - current tx: faslodex (C1D1 05/12) and ribociclib. planning to switch to abemaciclib OP - MRIB and CTAP ordered as above. Dr He notified 05/19 of results. Asking for liver biopsy to be done IP vs OP, scheduled for 05/27 IP Complexity. Hyponatremia - Secondary to fluid shifts. Monitor. Hypocalcemia - Continue to monitor and replete. . Malnutrition - Moderate Protein-Calorie Malnutrition (POA) (05/27/2024 9:00 AM) secondary to Chronic Illness (05/27/2024 9:00 AM) - Reviewed and agree with industrial registered nurse's recommendations. Any conditions listed below are present on admission unless otherwise specified. . Body mass index is 21.37 kg/m . RESOLVED PROBLEMS UTI - Urine culture positive for mixed microbes, will treat with ceftriaxone 3 days (05/20-05/22). - repeat Urine cx pending-05/26 CHRONIC PROBLEMS Hypothyroidism - cont home levothyroxine GERD - cont home pepcid DVT prophylaxis: lovenox held for bx on 05/27 Diet: DIET NPO with meds DIET NPO with meds Continuous Infusions: Code Status: Full Code Serious Illness Conversation: NA Disposition: The patient will require continued hospitalization for cancer related pain management, evaluation of left pleural effusion and need for thoracentesis, plan for liver bx on 05/27 and echo eval for effusion and LE doppler for extremity swelling. They are expected to discharge in 1-2 days. Today they are expected to be medically ready for discharge in 1-2 days Follow-ups made: NSGY 08/26/24, scoliosis X-ray 08/26, Med onc 06/01, Rad onc on 06/08 Follow-ups needed: - SUBJECTIVE Tiny Marte was seen while lying in bed.No family at the bedside. Reports increased anxiety overnight due to her upcoming bx today. Reports that her SOB has not increased from her baseline. Discussed plan for bx and echo to evaluate for effusion. Denies urine symptoms this AM Endorses lower back, right ribcage and thigh pain that is managed on current regimen. Last BM 05/25 OBJECTIVE Temp: [97.6 F (36.4 C)-98.5 F (36.9 C)] 97.6 F (36.4 C) Pulse (Heart Rate): [86-115] 86 Resp Rate: [16-20] 16 BP: (120-159)/(86-101) 120/86 O2 Sat (%): [91 %-98 %] 98 % Weight: [54.7 kg (120 lb 9.6 oz)] 54.7 kg (120 lb 9.6 oz) General: A&O to self, time, place, and situation. NAD. HEENT: EOMI, anicteric sclerae, conjunctivae & lids symmetrical. No signs of inflammation. Neck no rigidity. Not STILLAGUAMISH. MMM, no erythema, exudates, or lesions. Respiratory: diminished right base, no crackles/rhonchi/wheezes, no increased WOB. On 2L NC Cardiovascular: RRR, no murmurs, rubs, clicks or gallops, no peripheral edema, cap refill brisk. Abdomen: Normoactive BS. Abdomen soft, RUQ tender, non distended. No palpable masses. Neurologic: No focal deficits. Speech clear and coherent. Follows commands. Skin: Color, texture, and turgor normal. No rashes or lesions. Psychosocial: Affect appropriate. anxious PIV with no evidence of erythema, drainage, or tenderness. Dressing is clean, dry, and intact. R pleurx dressing C/D/I Plan of care reviewed with the attending, Dr. Rosario: in agreement. Sunni Khoury APRN-[facility] Pager [phone] Cancer Medicine & Medical Oncology Inpatient Services May be reached daily from 7a-7p at pager number listed on QGenda. After these hours please page moonlighter retail client solutions consultant. Associated attestation - Samy Rosario MD - 05/28/2024 3:14 PM EST I saw and evaluated the patient with our Advanced Practice Provider, Sunni Khoury, today. For today's visit, I reviewed the nursing flowchart, list of medications and pertinent laboratory and diagnostic tests. I provided a substantive portion of the care for this patient. I personally performed all aspects of the medical decision making for this encounter. I have reviewed and verified this progress note and it accurately reflects our care. I have spent 36 minutes providing services today independent from procedures and other care providers. Liver biopsy on 05/27 before discharge. Pain improved with steroid and narcotics.NSGY consult for opinion of spine metastatic disease, will need follow up but no intervention indicated now. PPM following, appreciate recs. Patient has R extremity swelling, check R duplex. Patient has worsening tachycardia and moderate pericardial effusion last March, recheck echo. R pleural effusion improved on chest x-ray 05/26 Palliative Medicine Consult Note Impression: Tiny Marte is a 63 y.o. female with a PMH relevant for metastatic breast CA (mets to brain, bone, lung). Admitted for management of N/V and FTT. Our team is consulted for assistance with symptom management. Assessment/Plan: Palliative Care by Specialist: - Code Status: Full Code. Addressed this encounter: No - Palliative Performance Status: 40% - Goals of Care: have not discussed in this encounter - I did not assess capacity today. - The patient does not have an HPOA. Spouse is legal next of kin Garrett Marte [phone] - Patient established with [facility]. We can manage opioid prescriptions at discharge. - Oxycodone liquid solution ~$90 OOP for 21 day supply. Methadone and naloxone script updated to [facility] 05/27. Sent Oxycodone tablets for pickup at local pharmacy on 05/31 Nausea - moderately controlled Subacute worsening over weeks and new MRI findings w/ diffuse parenchymal mets, concern that elevated intracranial pressure could be driving large portion of the nausea burden. Much improved with medication adjustments - Continue olanzapine to 5mg at bedtime (increased 05/19) - Continue haldol 0.5mg PO/IV q6h PRN (note doses <3mg / 24h should not prolong the qtc) - Continue zofran to 4mg PO/IV q4h PRN 2nd line - Avoid phenergan given concern for sedation w/ anticholinergic meds - Dexamethasone 5 day burst last dose 05/24 Cancer Related Pain moderately controlled Neuropathic Pain Chest wall Pain Etiology of pain is primarily due to malignant burden w/ known diffuse bony mets. Concern with patient's ability to tolerate pills given level of nausea. Does not seem to have adequate response to either butrans patch or IV buprenorphine and notes worsening of pain over last few days. Discussed rotation to methadone favoring liquid formulation and likely beneficial for bony mets. - Long acting opioid: - Increase Methadone to 5mg PO conc liquid Q8hr. --Last EKG 05/26 QTc 408 - Short acting opioids: -- Continue PO liquid oxycodone to 5-10mg q4h PRN -- Continue IV buprenex 0.09-0.15mg q4h PRN if unable to tolerate PO -- Please wait at least one hour after giving oral opioid prior to giving IV - Monitor for opioid toxicities including oversedation/worsening mental status, respiratory depression, constipation, urinary retention, myoclonus, and uncontrolled nausea/vomiting. - Adjuvants: -- Steroids as above may also provide analgesic benefit -- continue lidocaine patches over chest wall for MSK discomfort -- S/p zometa x1 on 05/19 for bony pain -- APAP PRN Opioid Induced Constipation - moderately controlled - Avoid docusate as it is likely ineffective for pt's constipation - Increase Senna to 2 tabs BID as tolerated - Continue Miralax 17g qday PRN as tolerated - Start bisacodyl suppository qday PRN Last Bowel Movement: 05/25/24 Insomnia - moderately controlled Likely related to uncontrolled symptoms. Medical management as above. - Melatonin 6mg PO at bedtime PRN Anxiety Restlessness, anxiety, inability to sit still. Likely due to steroids but also having trouble with getting comfortable due to pain - optimize opioid regimen as above - agree with decrease to steroid dose - Continue hydroxyzine oral solution 10mg Q6hr PRN - Haldol as above can help with anxiety Complexity. Any conditions listed below are present on admission unless otherwise specified.. We will continue to follow. 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 Spouse at bedside. Plan for liver biopsy today and hopeful for discharge tomorrow - Reporting pain is controlled as long as they stay on top of pain meds. Requiring multiple doses overnight. Had a bad day with pain yesterday. Pain mostly to hips/back/shoulder. Feels she is doing well with oxycodone and methadone but has needed IV medications as well - Ongoing numbness to left lip. Now with new oral lesion concerning for possible cold sore. Discussed this is not due to methadone and likely just development of oral lesion. Okay to continue methadone and feels this has helped control her pain - denies nausea- much improved - denies constipation - questions/concerns addressed. 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 MANAGER mets Constipation: yes Last Bowel Movement: 05/25/24 Analgesic Medications (24hr use): - IV bup -0.30 - 40mg oxycodone - methadone 7.5mg OME (Oral Morphine Equivalents): 05/27: 90 OME + methadone 7.5mg 05/24: 37.5 OME + methadone 7.5mg 05/23: 114 OME 05/21: 73.5 ome 05/20: 39 ome 05/19: ~37 Physical Exam: Temp: [97.6 F (36.4 C)-98.5 F (36.9 C)] 97.6 F (36.4 C) Pulse (Heart Rate): [86-115] 86 Resp Rate: [16-20] 16 BP: (120-159)/(86-101) 120/86 O2 Sat (%): [91 %-98 %] 98 % Weight: [54.7 kg (120 lb 9.6 oz)] 54.7 kg (120 lb 9.6 oz) CONSTITUTIONAL/GENERAL: Chronically ill appearing, grimace with positioning, NAD EYES: Pupils symmetric; Anicteric sclerae, moist conjunctivae RESPIRATORY: Unlabored, normal effort; Symmetric chest wall rise NEUROLOGIC: No gross motor or sensory deficits appreciated PSYCHIATRY: Alert. Appropriate affect Data Reviewed: Lab Results Component Value Date WBC 5.11 05/27/2024 HGB 10.0 (L) 05/27/2024 HCT 31.2 (L) 05/27/2024 PLATELET 474 (H) 05/27/2024 SODIUM 131 (L) 05/27/2024 POTASSIUM 3.9 05/27/2024 CHLORIDE 98 05/27/2024 MAGNESIUM 2.0 05/27/2024 CALCIUM 9.5 05/20/2024 CO2 28 05/27/2024 BUN 6 (L) 05/27/2024 CREATSERUM 0.36 (L) 05/27/2024 INR 1.0 05/27/2024 ALBUMIN 3.0 (L) 05/26/2024 AST 44 (H) 05/26/2024 ALT 20 05/26/2024 ALKPHOS 146 (H) 05/26/2024 BILITOTAL 0.3 05/26/2024 BILIDIRECT <0.1 05/26/2024 Estimated Creatinine Clearance: 134 mL/min (A) (by C-G formula based on SCr of 0.36 mg/dL (L)). Labs/results reviewed: Chem-7, LFTs, CBC, INR, and OARRs Lab review summary: - labs reviewed and appropriate for current symptom management regimen - patient with evidence of renal impairment External Notes: OARRS. Summary: -- Active Rx for butrans 5mcg/hr patch, oxycodone 5mg #56 14d supply -- Previous Rx for tramadol 50 Date: 05/11, Outpatient Palliative note, Summary: Pain in back, pelvis, ribs w/ osseous mets, oxycodone making drowsy, started butrans, olanzapine for nausea, draining 400-500 ml from pleur-x daily Date: 05/12, Outpatient med onc note, Summary: Plan for RT from 05/10- for R femoral fracture, OK to proceed with C2D1 ribociclib/fulvestrant. Plan for zometa w/ dental clearance. Summary of imaging results: MR brain w/ numerous enhancing lesions consistent with metastatic disease in parenchyma, dura, and skull. I independently interpreted the following imaging: CT abd pelvis from 05/19 -- moderate colonic stool burden, possible new hepatic mets? I independantly interpreted the following medicine tests: - EKG: Date:04/28, QTc: 422 ms Clinical assessment, tests and recommendations were discussed with: - [employer] RESTAURANT CREW - bedside nurse - CM - patient - family spouse Appointment Details: [x] Scheduled Appointment(s) Doctor/ Clinic: Clari Espitia/ Neurosurgery Date: 08/26/24 Time: 1:30PM Arrival Time: 1:00PM Imaging/ Appt. Site: Scoliosis Xray Date: 08/26/24 Time: 12:00PM Arrival Time: 11:45AM Comments: Located at [facility], 1st floor. Awaiting orders to schedule Addendum: Order placed and imaging scheduled as indicated. Located at [facility], 2nd floor directly prior to follow up appointment. There is no prep for this test. Marysol Cotton CM/SW Computer Forensics Examiner Please contact the PCRM or family service worker assigned to this patient's care team during regular daytime hours. PCRM: If any changes are required of this individualized plan of care during evening or weekend hours and assistance is needed, please page the retail client solutions consultant PCRM at [phone] Social Work: For Evening (4:30pm-8am) and Weekend SW needs please call [phone] or page [phone] NUTRITION FOLLOW UP Nutrition Recommendations and Plan of Care: 1. Continue daily meal selections 2. Will provide chocolate Ensure Plus (350 kcal; 13g protein) BID with meals for additional nutrition 3. Antiemetics per primary team 4. Please continue to document % PO intake as best as able 5. Monitor for significant weight changes 6. RD will continue to follow Tiny Marte is a 63 y.o. female with a PMH of GERD, hypothyroidism, pleural effusions s/p right pleurx, and metastatic breast cancer who was a direct admission for c/o nausea, vomiting, pain and FTT. Pt seen this morning. She reports about 3 weeks of diminished appetite and PO intake. Had been doing well prior. Admitted with nausea, vomiting. Improved on antiemetic regimen. She has been eating some but not as much as baseline. Trying. She is drinking Ensure though she typically prefers Boost. Encouraged small / frequent meals of foods high in calories and protein. Provided examples. She reported understanding. She is NPO today for liver biopsy. % PO Intakes per flowsheets: Breakfast Lunch Dinner 05/26 25% 50% + ensure -- 05/25 75% + ensure 50% + ensure 25% 05/24 yogurt 25% -- 05/24 -- -- -- 05/22 50% 50% 50% Current Diet Orders Procedures DIET NPO with meds Liver biopsy Standing Status: Standing Number of Occurrences: 1 Order Specific Question: NPO Meds: Answer: with meds Ht: 5' 3 /160 cm CBW: 127#/57.9 kg Admit Wt: 125#/56.8 kg BMI: 22.19 kg/(m^2) IBW: 115#/52.3 kg Weight history: pt has lost ~10% of her weight in the last 3 months, which is significant. Wt Readings from Last 50 Encounters: 05/26/24 57.9 kg (127 lb 11.2 oz) 05/11/24 58.5 kg (129 lb) 04/14/24 61 kg (134 lb 8 oz) 04/09/24 60.6 kg (133 lb 11.2 oz) 03/17/24 63.7 kg (140 lb 8 oz) Meds reviewed: synthroid, claritin, melatonin, methadone, olanzapine, pantoprazole, miralax, senna Labs reviewed: WBC/Hgb/Hct/Plts: 5.11/10.0/31.2/474 (05/27 36) Na/K+/Phos/Mg/Ca: 131/3.9/2.7/2.0/-- (05/27 36) Bun/Creat/Cl/CO2/Glucose: 6/0.36/98/28/95 (05/27 36) GI: last BM 05/25 Skin: Randall Score: 20 Extremities: no edema Nutrition Focused Physical Exam Subcutaneous Fat Loss: Orbital Region (Orbital Fat Pads): mild Cheek Region (Buccal Fat Pads): WDL Upper Arm Region (Triceps): mild Thoracic and Lumbar Region (Ribs, Lower Back, Midaxillary Line): deferred Muscle Wasting: Methodist Region (Temporalis Muscle): mild Clavicle Bone Region (Pectoralis Major, Trapezius Muscles): moderate Shoulder and Acromion Process Region (Deltoid Muscle): moderate Dorsal Hand (Interosseous Muscle): mild Scapular Bone Region (Trapezius, Supraspinatus, Infraspinatus Muscles): mild Anterior Thigh and Patellar Region (Quadriceps Muscles): mild Posterior Calf Region (Gastrocnemius Muscle): mild Estimated Nutrition Needs Wt used: 56.8 kg - admit wt EEN (kcal/d): 7362-9687 (25-30kcal/kg admit wt) EPN (g pro/d): 68-85 (1.2-1.5g/kg admit wt) EFN (ml/d): 1704 (30 ml/kg admit wt) Malnutrition Statement Does the patient meet criteria for malnutrition: Yes Etiology of Malnutrition: Chronic Illness Malnutrition Severity: Moderate Protein-Calorie Malnutrition (POA) Energy intake: Less than 75% energy intake compared to estimated energy needs for greater than or equal to 1 month Weight Loss: > 7.5% in 3 months Subcutaneous Fat Loss: Mild Muscle Mass Loss: Moderate based on the AND/ASPEN Malnutrition Criteria 2011 Morena Story MS, RD, LD, CNSC Pager: [phone] Acute Physical Therapy Treatment Prior Gross Functional Mobility: independent (Baseline status prior to March 2024) Current AM-PAC score(s): CURRENT AM-PAC Mobility Raw Score: 20 Based on the above AM-PAC score(s) and PT clinical judgment, patient is a good candidate for discharge to Home with Outpatient Rehab Services (and available family support) Barriers to discharge home: Patient needs assistance with functional mobility Mobility equipment available at home: 2 wheeled walker, manual wheelchair, oxygen (nocturnal 2LO2 - O2 concentrator; wheelchair - borrowed from friends) ADL equipment available at home: shower chair Equipment needed for discharge: none Current therapy frequency recommendation in acute: PT Therapy Frequency: 4 times a week Activity Recommendations for outside of rehab session: 1 person assist with gait belt and 2ww Precautions and Weightbearing Status: Existing Precautions/Restrictions: fall, supplemental oxygen Patient Safety Communication Prior to Visit: Nursing Right Lower Extremity : weight bearing as tolerated (s/p femur fixation (03/19/24)) Subjective: Pt presented sitting EOB agreeable to therapy. Pain: General Pain Documentation (Adult, OB, Peds) Presence of Pain: reports pain/discomfort Pain Location: back Objective/Observation: Vitals/Vitals Responses to Treatment: stable O2 Device: nasal cannula Flow (L/min): 2 Cognition Overall Cognitive Status: Within Functional Limits Arousal/Alertness: Appropriate responses to stimuli Orientation Level: Not assessed Following Commands: Follows one step commands without difficulty Extremity Assessments: See PT Evaluation flowsheet for Extremity Measurement updates. Skin and Edema: Balance: Sitting Balance Static Sitting-Level of Assistance: Independent Dynamic Sitting-Level of Assistance: Independent Sitting Balance Skilled Intervention/Details: Pt presented sitting EOB with good balance. Mobility Assessment/Intervention: Transfer Assessment/Intervention: Sit to Stand Transfer Bay Level: Sit->Stand: supervision Assistive Device: Sit->Stand: gait belt, 2 wheeled walker Skilled Rationale: Verbal cues, Hand placement Skilled Intervention/Details: Sit->Stand: From EOB Stand to Sit Transfer Bay Level: Stand->Sit: stand-by assist Assistive Device: Stand->Sit: gait belt, 2 wheeled walker, armed chair Skilled Rationale: Verbal cues, Hand placement Skilled Intervention/Details: Stand->Sit: To bedside chair. Gait/Functional Mobility Assessment/Intervention: Gait Assessment Bay Level: Gait: stand-by assist Assistive Device: Gait: gait belt, 2 wheeled walker Ambulation Distance (Feet): 175 Gait Deviations Identified: decreased elena, decreased gait speed, decreased step length, flexed posture Gait Skilled Rationale: verbal, upright posture Skilled Intervention/Details - Gait: Pt ambulated with slow elena and variable step length. Verbal cues for upright posture. No LOB. CURRENT [facility] Basic Mobility Inpatient Short Form Turning over in bed: 4 - No Assistance Moving from lying on back to sittin - No Assistance Moving to and from bed to chair: 3 - A Little Assistance Sitting/standing from chair: 3 - A Little Assistance Walk in hospital room: 3 - A Little Assistance Climbing 3-5 steps with a railin - A Little Assistance CURRENT [facility] Mobility Raw Score: 20 CURRENT [facility] Mobility Functional Limitation: 35.83% Impaired in Basic Mobility Assessment & Plan: Pt continues with hallway ambulation, but required decreased assist. Pt would benefit from continued PT services to address strength, endurance, and ambulation. Pt is making fair progress toward goals. Patient Instruction/Education this session: Learners: Patient Education provided: Plan of care Plan for next session: Progress ambulation as tolerated Acute PT Goals Plan of Care by Ashanti Anthony PTA at 05/27/2024 7:35 AM Version 1 of 1 Problem: PT - General Goals Goal: Sit <-> Stand Transfers - Patient will perform sit to/from stand transfers with modified independence and least restrictive to no device in order to improve functional mobility and safety. Outcome: Ongoing Goal: Ambulation - Patient will ambulate 350-500 feet with modified independence and least restrictive to no device to improve ability to safely navigate home and community. Outcome: Ongoing PT treatment consisted of the following to progress towards the above goal(s): PT Evaluation and Treatment Time Gait Training Time Entry: 11 Treating Therapist: Ashanti Anthony PTA Additional Details: PT Co-Eval/Treatment Information Co-evaluation/co-treatment performed?: No simultaneous skilled care performed PPE used during patient interaction: gloves Patient location at end of session: chair Alarms on at end of session: none Needs in reach. Time In: 734 Time Out: 745 Total Visit Time: 11 minutes Total Treatment Time (skilled, billable minutes): 11 minutes Upon discontinuation of Acute Care Physical Therapy Services or patient discharge from the hospital this note represents the current Physical Therapy Discharge Summary. CANCER MEDICINE INPATIENT PROGRESS NOTE TODAY'S DATE: 05/26/2024 ADMIT DATE: 05/18/2024 6:40 PM REASON FOR ADMISSION: FTT, n/v Primary Oncologist: Carlos He ASSESSMENT AND PLAN Tiny Marte is a 63 y.o. female with a PMH of GERD, hypothyroidism, pleural effusions s/p right pleurx, and metastatic breast cancer who was a direct admission for c/o nausea, vomiting, pain and FTT. ACUTE PROBLEMS Nausea, vomiting FTT hx Brain mets - c/o persistent nausea/vomiting and fatigue, worsening over past week with poor po intake. Possibly 2/2 brain mets, hypercalcemia & UTI (work up as below) - CXR unremarkable for acute process - CTAP showing progression of osseous metastases as well as new disease in liver - MRI brain ordered: Showing metastatic spread to brain. Oncologist notified of results - Rad onc c/s: completed simulation for planning brain and spinal radiation from 06/08-06/17 - PPM following, recs as of 05/24: Continue olanzapine to 5mg at bedtime (increased 05/19) Continue haldol 0.5mg PO/IV q6h PRN (note doses <3mg / 24h should not prolong the qtc) Continue zofran to 4mg PO/IV q4h PRN 2nd line Avoid phenergan given concern for sedation w/ anticholinergic meds Dexamethasone 5 day burst last dose 05/24 Hypercalcemia of malignancy- improving - Ca 13.6, albumin 3.6 on admission. iCa daily and calcium q6. After discussion with pharmacy, zometa and calcitonin x1 given 05/19. 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 - patient drained 500 cc off her pleurx 05/23 and states she felt like she could keep draining - discussed with IP attending, Dr. Bhakta, OK for the patient to drain up to 1L every other day for now - incentive spirometer, Pulm toilet -c/w O2 therapy, will try to wean to baseline 02 (2L NC nocturnal) as appropriate - 05/26-Awaiting CXR results-plan to c/s PVAT for left thoracentesis if worsening L-pleural effusion Pathologic fractures of L1 -Recommend MRI total spine: Completed with mild compression Fx of L1, and mets throughout the spine. - Rad Onc consulted, planning on lumbar spine radiation as above Cancer related pain Anxiety - c/o pain to right side into right back and now left side, hips, legs. Same pain, just worse - follows with PPM outpatient - cont home butrans patch and oxycodone prn. Dilaudid prn IV break thru pain - c/s PPM, recs as of 05/24: Long acting opioid: Methadone 2.5mg PO conc liquid Q8hr. 05/24 QTc 422 Continue PO liquid oxycodone to 5-10mg q4h PRN Continue IV buprenex 0.09-0.15mg q4h PRN if unable to tolerate PO (anticipate may need higher dose for upcoming procedure, CT sim, MRI of spine) Please wait at least one hour after giving oral opioid prior to giving IV Continue lidocaine patches over chest wall for MSK discomfort S/p zometa x1 on 05/19 for bony pain APAP PRN Opioid Induced Constipation - Avoid docusate as it is likely ineffective for pt's constipation - Senna to 2 tabs BID as tolerated - Continue Miralax 17g qday PRN as tolerated - bisacodyl suppository qday PRN Last Bowel Movement: 05/25/24 Insomnia - Melatonin 6mg PO at bedtime PRN Metastatic breast cancer - follows with Dr. He - known bone mets - s/p fixation and then radiation to right femur, last treatment 05/14 - current tx: faslodex (C1D1 05/12) and ribociclib. planning to switch to abemaciclib OP - MRIB and CTAP ordered as above. Dr He notified 05/19 of results. Asking for liver biopsy to be done IP vs OP, scheduled for 05/27 IP Complexity. Hypomagnesemia - Continue to monitor and replete. Hypocalcemia - Continue to monitor and replete. . Any conditions listed below are present on admission unless otherwise specified. . Body mass index is 22.63 kg/m . RESOLVED PROBLEMS UTI - Urine culture positive for mixed microbes, will treat with ceftriaxone 3 days (05/20-05/22). - repeat Urine cx pending-05/26 CHRONIC PROBLEMS Hypothyroidism - cont home levothyroxine GERD - cont home pepcid DVT prophylaxis: lovenox Diet: DIET REGULAR Continuous Infusions: Code Status: Full Code Serious Illness Conversation: NA Disposition: The patient will require continued hospitalization for cancer related pain management, evaluation of left pleural effusion and need for thoracentesis, plan for liver bx on 05/27. They are expected to discharge to [facility] [[email or web address]] . Today they are expected to be medically ready for discharge in 2-3 days Follow-ups made: Follow-ups needed: SUBJECTIVE The patient was seen & examined while sitting at the edge of the bed. Spouse at the bedside. Endorses increased insomnia, orthopnea, anxiety overnight. Endorses lower back, right ribcage and thigh pain. Pain is worse with activity. Also reports urinary frequency-plan to obtain urine cx and CXR. Last BM 05/25 OBJECTIVE Temp: [97.3 F (36.3 C)-98.6 F (37 C)] 98.6 F (37 C) Pulse (Heart Rate): [87-100] 100 Resp Rate: [16-22] 18 BP: (115-145)/(69-106) 136/102 O2 Sat (%): [93 %-100 %] 98 % Weight: [57.9 kg (127 lb 11.2 oz)] 57.9 kg (127 lb 11.2 oz) General: A&O to self, time, place, and situation. NAD. HEENT: EOMI, anicteric sclerae, conjunctivae & lids symmetrical. No signs of inflammation. Neck no rigidity. Not STILLAGUAMISH. MMM, no erythema, exudates, or lesions. Dentition intact. Respiratory: diminished right base, no crackles/rhonchi/wheezes, no increased WOB. On 3L NC Cardiovascular: RRR, no murmurs, rubs, clicks or gallops, no peripheral edema, cap refill brisk. Abdomen: Normoactive BS. Abdomen soft, RUQ tender, non distended. No palpable masses. Neurologic: No focal deficits. Speech clear and coherent. Follows commands. Skin: Color, texture, and turgor normal. No rashes or lesions. Psychosocial: Affect appropriate. anxious PIV with no evidence of erythema, drainage, or tenderness. Dressing is clean, dry, and intact. R pleurx dressing C/D/I Plan of care reviewed with the attending, Dr. Rosario: in agreement. Michaela Ramsay APRN-[facility] Pager [phone] Cancer Medicine & Medical Oncology Inpatient Services May be reached daily from 7a-7p at pager number listed on QGenda. After these hours please page moonlighter retail client solutions consultant. Associated attestation - Samy Rosario MD - 05/26/2024 8:22 PM EST I saw and evaluated the patient with our Advanced Practice Provider, Michaela Ramsay, today. For today's visit, I reviewed the nursing flowchart, list of medications and pertinent laboratory and diagnostic tests. I provided a substantive portion of the care for this patient. I personally performed all aspects of the medical decision making for this encounter. I have reviewed and verified this progress note and it accurately reflects our care. I have spent 36 minutes providing services today independent from procedures and other care providers. Liver biopsy on 05/27 before discharge. Pain improved with steroid and narcotics.NSGY consult for opinion of spine metastatic disease, will need follow up but no intervention indicated now. PPM following, appreciate recs. NPO midnight CANCER MEDICINE INPATIENT PROGRESS NOTE TODAY'S DATE: 05/25/2024 ADMIT DATE: 05/18/2024 6:40 PM REASON FOR ADMISSION: FTT, n/v Primary Oncologist: Carlos He ASSESSMENT AND PLAN Tiny Marte is a 63 y.o. female with a PMH of GERD, hypothyroidism, pleural effusions s/p right pleurx, and metastatic breast cancer who was a direct admission for c/o nausea, vomiting, pain and FTT. ACUTE PROBLEMS Nausea, vomiting FTT hx Brain mets - c/o persistent nausea/vomiting and fatigue, worsening over past week with poor po intake. Possibly 2/2 brain mets, hypercalcemia & UTI (work up as below) - CXR unremarkable for acute process - CTAP showing progression of osseous metastases as well as new disease in liver - MRI brain ordered: Showing metastatic spread to brain. Oncologist notified of results - Rad onc c/s: completed simulation for planning brain and spinal radiation from 06/08-06/17 - PPM consult, recs as of 05/23: Continue olanzapine to 5mg at bedtime (increased 05/19) Continue haldol 0.5mg PO/IV q6h PRN (note doses <3mg / 24h should not prolong the qtc) Continue zofran to 4mg PO/IV q4h PRN 2nd line Avoid phenergan given concern for sedation w/ anticholinergic meds Agree with decrease to IV Dexamethasone 4mg from BID to daily - due to increased restlessness/anxiety. Continue for 5 days total and stop. Hypercalcemia of malignancy- improving - Ca 13.6, albumin 3.6 on admission. iCa daily and calcium q6. After discussion with pharmacy, zometa and calcitonin x1 given 05/19. 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 - patient drained 500 cc off her pleurx 05/23 and states she felt like she could keep draining - discussed with IP attending, Dr. Bhakta, OK for the patient to drain up to 1L every other day for now - consider PVAT consult for L thoracentesis prior to DC if SOB recurs Pathologic fractures of L1 -Recommend MRI total spine: Completed with mild compression Fx of L1, and mets throughout the spine. - Rad Onc consulted, planning on lumbar spine radiation as above Cancer related pain - c/o pain to right side into right back and now left side, hips, legs. Same pain, just worse - follows with PPM outpatient - cont home butrans patch and oxycodone prn. Dilaudid prn IV break thru pain - c/s PPM, recs as of 05/23: Long acting opioid: Discontinue butrans to 10mcg/hr TD patch (increased 05/19)- no change to pain with previous adjustments Start Methadone 2.5mg PO conc liquid Q8hr. --Last EKG WNL 04/28. Team to obtain repeat EKG for QTc monitoring. Liberalize PO liquid oxycodone to 5-10mg q4h PRN Continue IV buprenex 0.09-0.15mg q4h PRN if unable to tolerate PO (anticipate may need higher dose for upcoming procedure, CT sim, MRI of spine) Continue lidocaine patches over chest wall for MSK discomfort Metastatic breast cancer - follows with Dr. He - known bone mets - s/p fixation and then radiation to right femur, last treatment 05/14 - current tx: faslodex (C1D1 05/12) and ribociclib. planning to switch to abemaciclib OP - MRIB and CTAP ordered as above. Dr He notified 05/19 of results. Asking for liver biopsy to be done IP vs OP, scheduled for 05/27 IP Complexity. Hypocalcemia - Continue to monitor and replete. Hypophosphatemia - Continue to monitor and replete. . Any conditions listed below are present on admission unless otherwise specified. . Body mass index is 22.19 kg/m . RESOLVED PROBLEMS UTI - Urine culture positive for mixed microbes, will treat with ceftriaxone 3 days (05/20-05/22). CHRONIC PROBLEMS Hypothyroidism - cont home levothyroxine GERD - cont home pepcid DVT prophylaxis: lovenox Diet: DIET REGULAR Continuous Infusions: Code Status: Full Code Serious Illness Conversation: NA Disposition: The patient will require continued hospitalization for above. They are expected to discharge to D . Today they are expected to be medically ready for discharge in 2-3 days Follow-ups made: Follow-ups needed: SUBJECTIVE The patient was seen & examined while sitting at the edge of the bed. No acute events overnight. Endorses lower back, right ribcage and thigh pain. Pain is worse with activity. She denied any additional questions or concerns. Discussed plan for liver biopsy on OBJECTIVE Temp: [97.8 F (36.6 C)-98.8 F (37.1 C)] 98 F (36.7 C) Pulse (Heart Rate): [82-98] 88 Resp Rate: [16-22] 20 BP: (120-147)/(69-95) 120/69 O2 Sat (%): [92 %-100 %] 100 % General: A&O to self, time, place, and situation. NAD. HEENT: EOMI, anicteric sclerae, conjunctivae & lids symmetrical. No signs of inflammation. Neck no rigidity. Not STILLAGUAMISH. MMM, no erythema, exudates, or lesions. Dentition intact. Respiratory: diminished right base, no crackles/rhonchi/wheezes, no increased WOB. On 3L NC Cardiovascular: RRR, no murmurs, rubs, clicks or gallops, no peripheral edema, cap refill brisk. Abdomen: Normoactive BS. Abdomen soft, RUQ tender, non distended. No palpable masses. Neurologic: No focal deficits. Speech clear and coherent. Follows commands. Skin: Color, texture, and turgor normal. No rashes or lesions. Psychosocial: Affect appropriate PIV with no evidence of erythema, drainage, or tenderness. Dressing is clean, dry, and intact. R pleurx dressing C/D/I Plan of care reviewed with the attending, Dr. Rosario: in agreement. Michaela Ramsay APRN-[facility] Pager [phone] Cancer Medicine & Medical Oncology Inpatient Services May be reached daily from 7a-7p at pager number listed on QGenda. After these hours please page moonlighter retail client solutions consultant. Associated attestation - Samy Rosario MD - 05/25/2024 5:45 PM EST I saw and evaluated the patient with our Advanced Practice Provider, Marysol Downey, today. For today's visit, I reviewed the nursing flowchart, list of medications and pertinent laboratory and diagnostic tests. I provided a substantive portion of the care for this patient. I personally performed all aspects of the medical decision making for this encounter. I have reviewed and verified this progress note and it accurately reflects our care. I have spent 51 minutes providing services today independent from procedures and other care providers. Liver biopsy on 05/27 before discharge. Pain improved with steroid and narcotics, but still uncontrolled. NSGY consult for opinion of spine metastatic disease. PPM following, appreciate recs. Palliative Medicine Consult Note Impression: Tiny Marte is a 63 y.o. female with a PMH relevant for metastatic breast CA (mets to brain, bone, lung). Admitted for management of N/V and FTT. Our team is consulted for assistance with symptom management. Assessment/Plan: Palliative Care by Specialist: - Code Status: Full Code. Addressed this encounter: No - Palliative Performance Status: 40% - Goals of Care: have not discussed in this encounter - I did not assess capacity today. - The patient does not have an HPOA. Spouse is legal next of kin Garrett Marte [phone] - Patient established with [facility]. We can manage opioid prescriptions at discharge. Geeta SABA approved. Oxycodone liquid solution sent to [facility] 05/21 (may need updated at discharge). Methadone script sent to check for PA 05/23. Nausea - moderately controlled Subacute worsening over weeks and new MRI findings w/ diffuse parenchymal mets, concern that elevated intracranial pressure could be driving large portion of the nausea burden. Much improved with medication adjustments - Continue olanzapine to 5mg at bedtime (increased 05/19) - Continue haldol 0.5mg PO/IV q6h PRN (note doses <3mg / 24h should not prolong the qtc) - Continue zofran to 4mg PO/IV q4h PRN 2nd line - Avoid phenergan given concern for sedation w/ anticholinergic meds - Dexamethasone 5 day burst last dose 05/24 Cancer Related Pain moderately controlled Neuropathic Pain Chest wall Pain Etiology of pain is primarily due to malignant burden w/ known diffuse bony mets. Concern with patient's ability to tolerate pills given level of nausea. Does not seem to have adequate response to either butrans patch or IV buprenorphine and notes worsening of pain over last few days. Discussed rotation to methadone favoring liquid formulation and likely beneficial for bony mets. - Long acting opioid: - Continue Methadone 2.5mg PO conc liquid Q8hr. --Last EKG WNL 04/28. Team to obtain repeat EKG for QTc monitoring. - Short acting opioids: -- Continue PO liquid oxycodone to 5-10mg q4h PRN -- Continue IV buprenex 0.09-0.15mg q4h PRN if unable to tolerate PO (anticipate may need higher dose for upcoming procedure, CT sim, MRI of spine) -- Please wait at least one hour after giving oral opioid prior to giving IV - Monitor for opioid toxicities including oversedation/worsening mental status, respiratory depression, constipation, urinary retention, myoclonus, and uncontrolled nausea/vomiting. - Adjuvants: -- Steroids as above may also provide analgesic benefit -- continue lidocaine patches over chest wall for MSK discomfort -- S/p zometa x1 on 05/19 for bony pain -- APAP PRN Opioid Induced Constipation - moderately controlled - Avoid docusate as it is likely ineffective for pt's constipation - Increase Senna to 2 tabs BID as tolerated - Continue Miralax 17g qday PRN as tolerated - Start bisacodyl suppository qday PRN Last Bowel Movement: 05/24/24 Insomnia - poorly controlled Likely related to uncontrolled symptoms. Medical management as above. - Melatonin 6mg PO at bedtime PRN Anxiety Restlessness, anxiety, inability to sit still. Likely due to steroids but also having trouble with getting comfortable due to pain - optimize opioid regimen as above - agree with decrease to steroid dose - Continue hydroxyzine oral solution 10mg Q6hr PRN Complexity. Any conditions listed below are present on admission unless otherwise specified.. We will continue to follow. 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 Spouse at bedside - Reports significant improvement to pain since starting methadone and taking oxycodone more frequently. Still having back pain but feels rib pain is improved. Was able to ambulate in [place] today. States she feels more clear since butrans patch was stopped. Reports some numbness to her left lip/mouth since taking the first dose of methadone. Will continue to monitor as this is not a typical reaction to methadone and would consider other etiologies for this symptom - Reviewed asking for PRN medications when needed and expect pain to improve with methadone reaching steady state in next 1-2 days - denies constipation, BM yesterday. 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 Constipation: yes Last Bowel Movement: 05/24/24 Analgesic Medications (24hr use): - IV bup -none - 25mg oxycodone - Butrans 10mcg/hr -discontinued - methadone 7.5mg OME (Oral Morphine Equivalents): 05/24: 37.5 OME + methadone 7.5mg 05/23: 114 OME 05/21: 73.5 ome 05/20: 39 ome 05/19: ~37 Physical Exam: Temp: [97.9 F (36.6 C)-98.3 F (36.8 C)] 98 F (36.7 C) Pulse (Heart Rate): [84-100] 89 Resp Rate: [14-18] 16 BP: (125-148)/(67-97) 125/73 O2 Sat (%): [93 %-99 %] 97 % CONSTITUTIONAL/GENERAL: Chronically ill appearing, grimace with positioning, moderate acute distress EYES: Pupils symmetric; Anicteric sclerae, moist conjunctivae RESPIRATORY: Unlabored, normal effort; Symmetric chest wall rise NEUROLOGIC: No gross motor or sensory deficits appreciated PSYCHIATRY: Alert. Appropriate affect Data Reviewed: Lab Results Component Value Date WBC 4.11 05/24/2024 HGB 9.3 (L) 05/24/2024 HCT 28.7 (L) 05/24/2024 PLATELET 418 (H) 05/24/2024 SODIUM 135 05/24/2024 POTASSIUM 3.7 05/24/2024 CHLORIDE 102 05/24/2024 MAGNESIUM 1.9 05/24/2024 CALCIUM 9.5 05/20/2024 CO2 27 05/24/2024 BUN 9 05/24/2024 CREATSERUM 0.37 (L) 05/24/2024 INR 1.0 05/24/2024 ALBUMIN 2.9 (L) 05/24/2024 AST 39 05/24/2024 ALT 16 05/24/2024 ALKPHOS 125 05/24/2024 BILITOTAL 0.2 05/24/2024 BILIDIRECT 0.1 05/24/2024 Estimated Creatinine Clearance: 130 mL/min (A) (by C-G formula based on SCr of 0.37 mg/dL (L)). Labs/results reviewed: Chem-7, LFTs, CBC, INR, and OARRs Lab review summary: - labs reviewed and appropriate for current symptom management regimen - patient with evidence of renal impairment External Notes: OARRS. Summary: -- Active Rx for butrans 5mcg/hr patch, oxycodone 5mg #56 14d supply -- Previous Rx for tramadol 50 Date: 05/11, Outpatient Palliative note, Summary: Pain in back, pelvis, ribs w/ osseous mets, oxycodone making drowsy, started butrans, olanzapine for nausea, draining 400-500 ml from pleur-x daily Date: 05/12, Outpatient med onc note, Summary: Plan for RT from 05/10- for R femoral fracture, OK to proceed with C2D1 ribociclib/fulvestrant. Plan for zometa w/ dental clearance. Summary of imaging results: MR brain w/ numerous enhancing lesions consistent with metastatic disease in parenchyma, dura, and skull. I independently interpreted the following imaging: CT abd pelvis from 05/19 -- moderate colonic stool burden, possible new hepatic mets? I independantly interpreted the following medicine tests: - EKG: Date:04/28, QTc: 422 ms Clinical assessment, tests and recommendations were discussed with: - [employer] - bedside nurse - patient - family spouse CANCER MEDICINE INPATIENT PROGRESS NOTE TODAY'S DATE: 05/24/2024 ADMIT DATE: 05/18/2024 6:40 PM REASON FOR ADMISSION: FTT, n/v Primary Oncologist: Carlos He ASSESSMENT AND PLAN Tiny Marte is a 63 y.o. female with a PMH of GERD, hypothyroidism, pleural effusions s/p right pleurx, and metastatic breast cancer who was a direct admission for c/o nausea, vomiting, pain and FTT. ACUTE PROBLEMS Nausea, vomiting FTT hx Brain mets - c/o persistent nausea/vomiting and fatigue, worsening over past week with poor po intake. Possibly 2/2 brain mets, hypercalcemia & UTI (work up as below) - CXR unremarkable for acute process - CTAP showing progression of osseous metastases as well as new disease in liver - MRI brain ordered: Showing metastatic spread to brain. Oncologist notified of results - Rad onc c/s: completed simulation for planning brain and spinal radiation from 06/08-06/17 - PPM consult, recs as of 05/23: Continue olanzapine to 5mg at bedtime (increased 05/19) Continue haldol 0.5mg PO/IV q6h PRN (note doses <3mg / 24h should not prolong the qtc) Continue zofran to 4mg PO/IV q4h PRN 2nd line Avoid phenergan given concern for sedation w/ anticholinergic meds Agree with decrease to IV Dexamethasone 4mg from BID to daily - due to increased restlessness/anxiety. Continue for 5 days total and stop. Hypercalcemia of malignancy- improving - Ca 13.6, albumin 3.6 on admission. iCa daily and calcium q6. After discussion with pharmacy, zometa and calcitonin x1 given 05/19. 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 - patient drained 500 cc off her pleurx 05/23 and states she felt like she could keep draining - discussed with IP attending, Dr. Bhakta, OK for the patient to drain up to 1L every other day for now - consider PVAT consult for L thoracentesis prior to DC if SOB recurs Pathologic fractures of L1 -Recommend MRI total spine: Completed with mild compression Fx of L1, and mets throughout the spine. - Rad Onc consulted, planning on lumbar spine radiation as above Cancer related pain - c/o pain to right side into right back and now left side, hips, legs. Same pain, just worse - follows with PPM outpatient - cont home butrans patch and oxycodone prn. Dilaudid prn IV break thru pain - c/s PPM, recs as of 05/23: Long acting opioid: Discontinue butrans to 10mcg/hr TD patch (increased 05/19)- no change to pain with previous adjustments Start Methadone 2.5mg PO conc liquid Q8hr. --Last EKG WNL 04/28. Team to obtain repeat EKG for QTc monitoring. Liberalize PO liquid oxycodone to 5-10mg q4h PRN Continue IV buprenex 0.09-0.15mg q4h PRN if unable to tolerate PO (anticipate may need higher dose for upcoming procedure, CT sim, MRI of spine) Continue lidocaine patches over chest wall for MSK discomfort Metastatic breast cancer - follows with Dr. He - known bone mets - s/p fixation and then radiation to right femur, last treatment 05/14 - current tx: faslodex (C1D1 05/12) and ribociclib. planning to switch to abemaciclib OP - MRIB and CTAP ordered as above. Dr He notified 05/19 of results. Asking for liver biopsy to be done IP vs OP, scheduled for 05/27 IP Complexity. Hypocalcemia - Continue to monitor and replete. Hypophosphatemia - Continue to monitor and replete. . Any conditions listed below are present on admission unless otherwise specified. . Body mass index is 22.19 kg/m . RESOLVED PROBLEMS UTI - Urine culture positive for mixed microbes, will treat with ceftriaxone 3 days (05/20-05/22). CHRONIC PROBLEMS Hypothyroidism - cont home levothyroxine GERD - cont home pepcid DVT prophylaxis: lovenox Diet: DIET REGULAR Continuous Infusions: Code Status: Full Code Serious Illness Conversation: NA Disposition: The patient will require continued hospitalization for above. They are expected to discharge to D . Today they are expected to be medically ready for discharge in 2-3 days Follow-ups made: Follow-ups needed: SUBJECTIVE The patient was seen & examined while she was sitting on the side of the bed. She states her ribcage pain is better, but lower back pain is worse. She endorses numbness on her left side of her lip ever since receiving methadone. She states sometimes her lip feels like this when a cold sore is coming on. She denies any other neurological symptoms (headaches, vision changes, focal weakness, or other sensation changes in her face). She states her SOB has improved since draining her pleurx yesterday. We discussed plan for liver biopsy on , working with PPM on pain control and following up further rad onc recs. She denied any additional questions or concerns. OBJECTIVE Temp: [97.9 F (36.6 C)-98.3 F (36.8 C)] 98 F (36.7 C) Pulse (Heart Rate): [84-100] 89 Resp Rate: [14-18] 16 BP: (125-148)/(67-97) 125/73 O2 Sat (%): [93 %-99 %] 97 % General: A&O to self, time, place, and situation. NAD. HEENT: EOMI, anicteric sclerae, conjunctivae & lids symmetrical. No signs of inflammation. Neck no rigidity. Not STILLAGUAMISH. MMM, no erythema, exudates, or lesions. Dentition intact. Respiratory: Clear to auscultation bilaterally, no crackles/rhonchi/wheezes, no increased WOB. Cardiovascular: RRR, no murmurs, rubs, clicks or gallops, no peripheral edema, cap refill brisk. Abdomen: Normoactive BS. Abdomen soft, nontender, nondistended. No palpable masses. Neurologic: No focal deficits. Speech clear and coherent. Follows commands. Skin: Color, texture, and turgor normal. No rashes or lesions. Psychosocial: Affect appropriate PIV with no evidence of erythema, drainage, or tenderness. Dressing is clean, dry, and intact. R pleurx dressing C/D/I Plan of care reviewed with the attending, Dr. Rosario: in agreement. Marysol Downey APRN-[facility] Cancer Medicine & Medical Oncology Inpatient Services May be reached daily from 7a-7p at pager number listed on QGenda. After these hours please page moonlighter retail client solutions consultant. Associated attestation - Samy Rosario MD - 05/24/2024 8:01 PM EST I saw and evaluated the patient with our Advanced Practice Provider, Marysol Downey, today. For today's visit, I reviewed the nursing flowchart, list of medications and pertinent laboratory and diagnostic tests. I provided a substantive portion of the care for this patient. I personally performed all aspects of the medical decision making for this encounter. I have reviewed and verified this progress note and it accurately reflects our care. I have spent 51 minutes providing services today independent from procedures and other care providers. Liver biopsy on 05/27 before discharge. Pain improved with steroid and narcotics. PPM following, appreciate recs. Physical Therapy Attempt Note 05/24/2024 PT Therapy Completed: Attempted Attempted Reason: Patient declined session (Pt reports having just walked down the [place] with family and MD is at bedside to speak with pt. Will re-attempt as able and appropriate.) Ashanti Anthony, MEIR Time In: 1309 Time Out: 1310 Total Visit Time: 1 minutes Total Treatment Time (skilled, billable minutes): 0 minutes Palliative Medicine Consult Note Impression: Tiny Marte is a 63 y.o. female with a PMH relevant for metastatic breast CA (mets to brain, bone, lung). Admitted for management of N/V and FTT. Our team is consulted for assistance with symptom management. Assessment/Plan: Palliative Care by Specialist: - Code Status: Full Code. Addressed this encounter: No - Palliative Performance Status: 40% - Goals of Care: have not discussed in this encounter - I did not assess capacity today. - The patient does not have an HPOA. Spouse is legal next of kin Garrett Marte [phone] - Patient established with [facility]. We can manage opioid prescriptions at discharge. Geeta SABA approved. Oxycodone liquid solution sent to [facility]. Methadone script sent to check for PA today. Nausea - moderately controlled Subacute worsening over weeks and new MRI findings w/ diffuse parenchymal mets, concern that elevated intracranial pressure could be driving large portion of the nausea burden. Much improved with medication adjustments - Continue olanzapine to 5mg at bedtime (increased 05/19) - Continue haldol 0.5mg PO/IV q6h PRN (note doses <3mg / 24h should not prolong the qtc) - Continue zofran to 4mg PO/IV q4h PRN 2nd line - Avoid phenergan given concern for sedation w/ anticholinergic meds - Agree with decrease to IV Dexamethasone 4mg from BID to daily - due to increased restlessness/anxiety. Continue for 5 days total and stop. Cancer Related Pain moderately controlled Neuropathic Pain Chest wall Pain Etiology of pain is primarily due to malignant burden w/ known diffuse bony mets. Concern with patient's ability to tolerate pills given level of nausea. Does not seem to have adequate response to either butrans patch or IV buprenorphine and notes worsening of pain over last few days. Discussed rotation to methadone favoring liquid formulation and likely beneficial for bony mets. - Long acting opioid: Discontinue butrans to 10mcg/hr TD patch (increased 05/19)- no change to pain with previous adjustments - Start Methadone 2.5mg PO conc liquid Q8hr. --Last EKG WNL 04/28. Team to obtain repeat EKG for QTc monitoring. - Short acting opioids: -- Liberalize PO liquid oxycodone to 5-10mg q4h PRN -- Continue IV buprenex 0.09-0.15mg q4h PRN if unable to tolerate PO (anticipate may need higher dose for upcoming procedure, CT sim, MRI of spine) -- Please wait at least one hour after giving oral opioid prior to giving IV - Monitor for opioid toxicities including oversedation/worsening mental status, respiratory depression, constipation, urinary retention, myoclonus, and uncontrolled nausea/vomiting. - Adjuvants: -- Steroids as above may also provide analgesic benefit -- continue lidocaine patches over chest wall for MSK discomfort -- S/p zometa x1 on 05/19 for bony pain -- APAP PRN Opioid Induced Constipation - moderately controlled - Avoid docusate as it is likely ineffective for pt's constipation - Increase Senna to 2 tabs BID as tolerated - Continue Miralax 17g qday PRN as tolerated - Start bisacodyl suppository qday PRN Last Bowel Movement: 05/21/24 Insomnia - poorly controlled Likely related to uncontrolled symptoms. Medical management as above. - Melatonin 6mg PO at bedtime PRN Anxiety Restlessness, anxiety, inability to sit still. Likely due to steroids but also having trouble with getting comfortable due to pain - optimize opioid regimen as above - agree with decrease to steroid dose - Start hydroxyzine oral solution 10mg Q6hr PRN (order entered) Complexity. Any conditions listed below are present on admission unless otherwise specified.. We will continue to follow. 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 Daughter and at bedside. Plan for liver biopsy tomorrow. Hoping for discharge in next few days. - Patient reports ongoing pain to back/hip/ generalized. Rating pain moderate to severe. Unsure what medications are helping. Feels IV medicine just makes her go to sleep but unsure if it actually helps pain much. Oxycodone seems to help bring pain level down but does note that she asks for it before it is due and then will get IV pain medicine. Feels pain is worse than it was on Friday. Has not noticed any change to pain with butrans patch. - Discussed plan to rotate to methadone due to inadequate pain control. Also favor patches and liquid medications due to strong gag reflex with pill and ongoing nausea. Discussed likely would need to stay until 05/25 for pain control monitoring but can see how she feels tomorrow. Patient/family are agreeable to this. - Significant improvement to nausea with medications - Some drowsiness with medications but also not sleeping well due to anxiety/restlessness and inability to get comfortable with uncontrolled pain. Grimacing and needs assistance with frequent repositioning - Denies constipation - Questions/concerns addressed 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 MANAGER mets Constipation: yes Last Bowel Movement: 05/21/24 Analgesic Medications (24hr use): - IV bup -0.45mg - 20mg oxycodone - Butrans 10mcg/hr Td patch ~ 24ome OME (Oral Morphine Equivalents): 05/23: 114 OME 05/21: 73.5 ome 05/20: 39 ome 05/19: ~37 Physical Exam: Temp: [97.5 F (36.4 C)-98 F (36.7 C)] 97.9 F (36.6 C) Pulse (Heart Rate): [92-110] 102 Resp Rate: [18-22] 20 BP: (151-167)/(93-108) 167/93 O2 Sat (%): [94 %-97 %] 94 % CONSTITUTIONAL/GENERAL: Chronically ill appearing, grimace with positioning, moderate acute distress EYES: Pupils symmetric; Anicteric sclerae, moist conjunctivae RESPIRATORY: Unlabored, normal effort; Symmetric chest wall rise NEUROLOGIC: No gross motor or sensory deficits appreciated PSYCHIATRY: Alert. Appropriate affect Data Reviewed: Lab Results Component Value Date WBC 4.97 05/23/2024 HGB 10.1 (L) 05/23/2024 HCT 31.3 (L) 05/23/2024 PLATELET 491 (H) 05/23/2024 SODIUM 133 (L) 05/23/2024 POTASSIUM 3.6 05/23/2024 CHLORIDE 99 05/23/2024 MAGNESIUM 1.7 05/23/2024 CALCIUM 9.5 05/20/2024 CO2 26 05/23/2024 BUN 11 05/23/2024 CREATSERUM 0.37 (L) 05/23/2024 INR 1.0 05/18/2024 ALBUMIN 2.5 (L) 05/21/2024 AST 21 05/21/2024 ALT 9 05/21/2024 ALKPHOS 79 05/21/2024 BILITOTAL 0.2 05/21/2024 BILIDIRECT <0.1 05/21/2024 Estimated Creatinine Clearance: 130 mL/min (A) (by C-G formula based on SCr of 0.37 mg/dL (L)). Labs/results reviewed: Chem-7, LFTs, CBC, INR, and OARRs Lab review summary: - labs reviewed and appropriate for current symptom management regimen - patient with evidence of renal impairment External Notes: OARRS. Summary: -- Active Rx for butrans 5mcg/hr patch, oxycodone 5mg #56 14d supply -- Previous Rx for tramadol 50 Date: 05/11, Outpatient Palliative note, Summary: Pain in back, pelvis, ribs w/ osseous mets, oxycodone making drowsy, started butrans, olanzapine for nausea, draining 400-500 ml from pleur-x daily Date: 05/12, Outpatient med onc note, Summary: Plan for RT from 05/10- for R femoral fracture, OK to proceed with C2D1 ribociclib/fulvestrant. Plan for zometa w/ dental clearance. Summary of imaging results: MR brain w/ numerous enhancing lesions consistent with metastatic disease in parenchyma, dura, and skull. I independently interpreted the following imaging: CT abd pelvis from 05/19 -- moderate colonic stool burden, possible new hepatic mets? I independantly interpreted the following medicine tests: - EKG: Date:04/28, QTc: 422 ms Clinical assessment, tests and recommendations were discussed with: - [employer] - bedside nurse - patient - family spouse, daughter CANCER MEDICINE INPATIENT PROGRESS NOTE TODAY'S DATE: 05/23/2024 ADMIT DATE: 05/18/2024 6:40 PM REASON FOR ADMISSION: FTT, n/v Primary Oncologist: Carlos He ASSESSMENT AND PLAN Tiny Marte is a 63 y.o. female with a PMH of GERD, hypothyroidism, pleural effusions s/p right pleurx, and metastatic breast cancer who was a direct admission for c/o nausea, vomiting, pain and FTT. ACUTE PROBLEMS Nausea, vomiting FTT Hypercalcemia of malignancy- improving ND Brain mets Pth fractures of L1 UTI - c/o persistent nausea/vomiting and fatigue, worsening over past week with poor po intake - Ca 13.6, albumin 3.6 on admission. iCa daily and calcium q6. After discussion with pharmacy, zometa and calcitonin x1 given 05/19. MIV 200 ml/hr, weaned off 05/21 - pth intact low at 9 and vit d 40.8 - iCa improved to 5.55 05/20 - Urine culture positive for mixed microbes, will treat with ceftriaxone 3 days (05/20- ). CXR unremarkable for acute process - CTAP showing progression of osseous metastases as well as new disease in liver - MRI brain ordered: Showing metastatic spread to brain. Oncologist notified of results - Rad onc c/s: -Recommend MRI total spine: Completed with mild compression Fx of L1, and mets throughout the spine. - [facility] has completed simulation for planning brain and spinal radiation from 06/08- PPM consult: - Continue olanzapine to 5mg at bedtime - Schedule haldol 1mg q8h x 5 doses as bridge to olanzapine efficacy, - Continue haldol 0.5mg PO/IV q6h PRN (note doses <3mg / 24h should not prolong the qtc) - Change zofran to 4mg PO/IV q4h PRN 2nd line - Avoid phenergan given concern for sedation w/ anticholinergic meds -Dexamethasone bid ordered IV for five days starting 05/20. Okay per oncologist Cancer related pain - c/o pain to right side into right back and now left side, hips, legs. Same pain, just worse - follows with PPM outpatient - cont home butrans patch and oxycodone prn. Dilaudid prn IV break thru pain - c/s PPM: - Long acting opioid: Continue butrans to 10mcg/hr TD patch - Short acting opioids: -- Continue oxycodone 5mg q4h PRN -- Start IV buprenex 0.09mg q4h PRN if unable to tolerate PO -- Please wait at least one hour after giving oral opioid prior to giving IV - Monitor for opioid toxicities including oversedation/worsening mental status, respiratory depression, constipation, urinary retention, myoclonus, and uncontrolled nausea/vomiting. - Adjuvants: -- started Dex 4 BID -> decresed to daily on 05/22 due to anxiety -- Start lidocaine patches over chest wall for MSK discomfort Metastatic breast cancer - follows with Dr. He - known bone mets - s/p fixation and then radiation to right femur, last treatment 05/14 - current tx: faslodex (C1D1 05/12) and ribociclib. - pt has ribociclib with her, would just need ordered by oncologist - MRIB and CTAP ordered as above. Dr He notified 05/19 of results. Asking for liver biopsy to be done IP vs OP - obtaining on 05/24 Complexity. Hyponatremia - Secondary to fluid shifts. Monitor. Hypophosphatemia - Continue to monitor and replete. . Any conditions listed below are present on admission unless otherwise specified. . Body mass index is 22.19 kg/m . CHRONIC PROBLEMS Hypothyroidism - cont home levothyroxine GERD - cont home pepcid DVT prophylaxis: Hold considering MRIB as above Diet: DIET REGULAR DIET NPO with meds Continuous Infusions: Code Status: Full Code Serious Illness Conversation: NA Disposition: The patient will require continued hospitalization for above. They are expected to discharge to [facility] . Today they are expected to be medically ready for discharge in 2-3 days Follow-ups made: Follow-ups needed: SUBJECTIVE Patient still appears to be in nearly constatnt discomfort, readjusting, unable to get comfortable. Denies abdominal pain SOB chest pain, changes in bowel/bladder status. SOB is stable at baseline 2L. Awaiting biopsy tomorrow Will engage palliative about increasing LA Butrans patch. OBJECTIVE Temp: [97.5 F (36.4 C)-98 F (36.7 C)] 98 F (36.7 C) Pulse (Heart Rate): [92-110] 110 Resp Rate: [18-22] 22 BP: (151-159)/(90-108) 156/93 O2 Sat (%): [94 %-97 %] 94 % General: A&O to self, time, place, and situation. Frequently adjusting position, grunting in pain. HEENT: EOMI, anicteric sclerae, conjunctivae & lids symmetrical. No signs of inflammation. Neck no rigidity. Not STILLAGUAMISH. MMM, no erythema, exudates, or lesions. Dentition intact. Respiratory: Clear to auscultation bilaterally, no crackles/rhonchi/wheezes, no increased WOB. Cardiovascular: RRR, no murmurs, rubs, clicks or gallops, no peripheral edema, cap refill brisk. Abdomen: Normoactive BS. Abdomen soft, nontender, nondistended. No palpable masses. Neurologic: CN II-XII intact. No focal deficits. Speech clear and coherent. Follows commands. Skin: Color, texture, and turgor normal. No rashes or lesions. Psychosocial: Affect appropriate PIV with no evidence of erythema, drainage, or tenderness. Dressing is clean, dry, and intact. Plan of care reviewed with the attending, Dr. Guadalupe: in agreement. Temo Simmons PA-C Pager: [phone] The provider may be reached from 7a-7p at pager listed on [facility]. After these hours please page the contracts officer or moonlighter. CANCER MEDICINE INPATIENT PROGRESS NOTE TODAY'S DATE: 05/22/2024 ADMIT DATE: 05/18/2024 6:40 PM REASON FOR ADMISSION: FTT, n/v Primary Oncologist: Carlos He ASSESSMENT AND PLAN Tiny Marte is a 63 y.o. female with a PMH of GERD, hypothyroidism, pleural effusions s/p right pleurx, and metastatic breast cancer who was a direct admission for c/o nausea, vomiting, pain and FTT. ACUTE PROBLEMS Nausea, vomiting FTT Hypercalcemia of malignancy- improving ND Brain mets Pth fractures of L1 and UTI - c/o persistent nausea/vomiting and fatigue, worsening over past week with poor po intake - Ca 13.6, albumin 3.6 on admission. iCa daily and calcium q6. After discussion with pharmacy, zometa and calcitonin x1 given 05/19. MIV 200 ml/hr, weaned off 05/21 - pth intact low at 9 and vit d 40.8 - iCa improved to 5.55 05/20 - Urine culture positive for mixed microbes, will treat with ceftriaxone 3 days (05/20- ). CXR unremarkable for acute process - CTAP showing progression of osseous metastases as well as new disease in liver - MRI brain ordered: Showing metastatic spread to brain. Oncologist notified of results - Rad onc c/s: - She will be a candidate for hippocampal whole brain RT vs fSRS for her brain metastases. No urgent indication for inpatient radiation at this time given small, likely asymptomatic brain metastases. Final plan depending on discussion with her medical oncology team. - Plan to see her outpatient for management of her brain metastases. - Will reschedule CT simulation without contrast for treating her painful bone metastases to 05/20 (right hip and lumbar spine) -Recommend MRI total spine: Completed with mild compression PPM consult: - Continue olanzapine to 5mg at bedtime - Schedule haldol 1mg q8h x 5 doses as bridge to olanzapine efficacy, - Continue haldol 0.5mg PO/IV q6h PRN (note doses <3mg / 24h should not prolong the qtc) - Change zofran to 4mg PO/IV q4h PRN 2nd line - Avoid phenergan given concern for sedation w/ anticholinergic meds -Dexamethasone bid ordered IV for five days starting 05/20. Okay per oncologist Cancer related pain - c/o pain to right side into right back and now left side, hips, legs. Same pain, just worse - follows with PPM outpatient - cont home butrans patch and oxycodone prn. Dilaudid prn IV break thru pain - c/s PPM: - Long acting opioid: Continue butrans to 10mcg/hr TD patch - Short acting opioids: -- Continue oxycodone 5mg q4h PRN -- Start IV buprenex 0.09mg q4h PRN if unable to tolerate PO -- Please wait at least one hour after giving oral opioid prior to giving IV - Monitor for opioid toxicities including oversedation/worsening mental status, respiratory depression, constipation, urinary retention, myoclonus, and uncontrolled nausea/vomiting. - Adjuvants: -- Consideration of steroids as above for nausea -- Start lidocaine patches over chest wall for MSK discomfort Metastatic breast cancer - follows with Dr. He - known bone mets - s/p fixation and then radiation to right femur, last treatment 05/14 - current tx: faslodex (C1D1 05/12) and ribociclib. - pt has ribociclib with her, would just need ordered by oncologist - MRIB and CTAP ordered as above. Dr He notified 05/19 of results. Asking for liver biopsy to be done IP vs OP Complexity. Hyponatremia - Secondary to fluid shifts. Monitor. Hypophosphatemia - Continue to monitor and replete. . Any conditions listed below are present on admission unless otherwise specified. . Body mass index is 22.19 kg/m . CHRONIC PROBLEMS Hypothyroidism - cont home levothyroxine GERD - cont home pepcid DVT prophylaxis: Hold considering MRIB as above Diet: DIET REGULAR DIET NPO with meds Continuous Infusions: Code Status: Full Code Serious Illness Conversation: NA Disposition: The patient will require continued hospitalization for above. They are expected to discharge to [facility] . Today they are expected to be medically ready for discharge in 2-3 days Follow-ups made: Follow-ups needed: SUBJECTIVE Patient seen today. Pain is improving, breathing well. States that she is feeling antsy wonders if this has to do with the MRI or the steroids that were started yesterday. She denies abdominal pain SOB or CP. States understanding that she has a L pleural effusion as well as a right pleral effusion. Planning for liver biopsy on Friday. OBJECTIVE Temp: [97.6 F (36.4 C)-98.7 F (37.1 C)] 98.7 F (37.1 C) Pulse (Heart Rate): [75-108] 107 Resp Rate: [16-18] 16 BP: (143-167)/(80-108) 151/90 O2 Sat (%): [94 %-97 %] 95 % General: A&O to self, time, place, and situation. NAD. Forgetful HEENT: EOMI, anicteric sclerae, conjunctivae & lids symmetrical. No signs of inflammation. Neck no rigidity. Not STILLAGUAMISH. MMM, no erythema, exudates, or lesions. Dentition intact. Respiratory: Clear to auscultation bilaterally, no crackles/rhonchi/wheezes, no increased WOB. Cardiovascular: RRR, no murmurs, rubs, clicks or gallops, no peripheral edema, cap refill brisk. Abdomen: Normoactive BS. Abdomen soft, nontender, nondistended. No palpable masses. Neurologic: CN II-XII intact. No focal deficits. Speech clear and coherent. Follows commands. Skin: Color, texture, and turgor normal. No rashes or lesions. Psychosocial: Affect appropriate PIV with no evidence of erythema, drainage, or tenderness. Dressing is clean, dry, and intact. Plan of care reviewed with the attending, Dr. Guadalupe: in agreement. Temo Simmons PA-C Pager: [phone] The provider may be reached from 7a-7p at pager listed on [facility]Genda. After these hours please page the contracts officer or moonlighter. Associated attestation - Carlos Guadalupe MD - 05/22/2024 8:40 PM EST I have personally seen the patient on 05/22/24, spent 45 minutes to perform critical or yarbrough portions of the service, participated in the management of the patient. I agree with the physical exam as stated below. Case discussed on rounds with the [facility] and the team. I have personally reviewed all available clinical data related to today's encounter including, but not limited to, labs, radiology images and reports, procedure reports, outside medical records, and EKG/telemetry tracings if applicable. I agree with the documented assessment and plan, with the following comments/corrections/additions. Discussed the diagnosis and plan of care with the patient and/or family who are in agreement. Interval History: -No acute event overnight, -Calcium level improving -Liver biopsy scheduled 05/[address] He request Assessment: Tiny Marte is a 63 y.o. female with a PMH of GERD, hypothyroidism, pleural effusions s/p right pleurx, and metastatic breast cancer who was a direct admission for c/o nausea, vomiting, pain and FTT. Active problem list: # Symptomatic Hypercalcemia, improving # Nausea, vomiting # FTT # ND Brain mets # Cancer related pain # Metastatic breast cancer Plans: - s/p Zometa and calcitonin, continue mIVF, monitor Calcium level - Follow PPM recommendation for pain control - Liver biopsy scheduled 05/[address] He request -Per Rad onc patient need fSRS (3 fraction) for brain mets outpatient Please refer to the [facility] note below for further details. Carlos Guadalupe MD Clinical Oxygen Therapist Division of [facility] Medicine Pager [phone] Palliative Medicine Consult Note Impression: Tiny Marte is a 63 y.o. female with a PMH relevant for metastatic breast CA (mets to brain, bone, lung). Admitted for management of N/V and FTT. Our team is consulted for assistance with symptom management. Assessment/Plan: Palliative Care by Specialist: - Code Status: Full Code. Addressed this encounter: No - Palliative Performance Status: 40% - Goals of Care: have not discussed in this encounter - I did not assess capacity today. - The patient does not have an HPOA. Spouse is legal next of kin Garrett Marte [phone] - Patient established with [facility]. We can manage opioid prescriptions at discharge. Geeta SABA approved. Oxycodone liquid solution sent to [facility]. #Nausea - poorly controlled Etiology likely multifactorial with both central and peripheral contributions. With subacute worsening over weeks and new MRI findings w/ diffuse parenchymal mets, concern that elevated intracranial pressure could be driving large portion of the nausea burden. - Continue olanzapine to 5mg at bedtime (increased 05/19) - Continue haldol 0.5mg PO/IV q6h PRN (note doses <3mg / 24h should not prolong the qtc) - Continue zofran to 4mg PO/IV q4h PRN 2nd line - Avoid phenergan given concern for sedation w/ anticholinergic meds - Continue IV Dexamethasone 4mg BID (8am/noon) x 5days (okay by oncology team) #Cancer Related Pain moderately controlled #Neuropathic Pain #Chest wall Pain Etiology of pain is primarily due to malignant burden w/ known diffuse bony mets. Pain is neuropathic, Msk/inflammatory, nociceptive in nature. Pain appears to be appropriately opioid responsive. With concern for intermittent uncontrolled nausea limiting ability to tolerate PO PRNs, will favor escalation of butrans and using IV buprenorphine while admitted w/ hope that we can return to using PO PRNs by the time of discharge. Having trouble with swallowing pills related to gagging but doing well with liquids. - Long acting opioid: Continue butrans to 10mcg/hr TD patch (increased 05/19) - Short acting opioids: -- Continue oxycodone to conc liquid 5mg q4h PRN -- Adjust IV buprenex 0.09-0.15mg q4h PRN if unable to tolerate PO (anticipate may need higher dose for upcoming procedure, CT sim, MRI of spine) -- Please wait at least one hour after giving oral opioid prior to giving IV - Monitor for opioid toxicities including oversedation/worsening mental status, respiratory depression, constipation, urinary retention, myoclonus, and uncontrolled nausea/vomiting. - Adjuvants: -- Steroids as above may also provide analgesic benefit -- Start lidocaine patches over chest wall for MSK discomfort -- S/p zometa x1 on 05/19 for bony pain -- APAP PRN #Opioid Induced Constipation - moderately controlled No recent BM with poor PO intake and inability to tolerate bowel reg, will favor initiation a [place] regimen while nausea limits PO regimen - Avoid docusate as it is likely ineffective for pt's constipation - Increase Senna to 2 tabs BID as tolerated - Continue Miralax 17g qday PRN as tolerated - Start bisacodyl suppository qday PRN Last Bowel Movement: 05/21/24 #Insomnia - poorly controlled Likely related to uncontrolled symptoms. Medical management as above. - Melatonin 6mg PO at bedtime PRN Complexity. Any conditions listed below are present on admission unless otherwise specified.. We will continue to follow. 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 NAD. Discomfort with getting back to bed/ repositioning - Overall notes improvement to symptoms (nausea and pain). Doing better with liquid oxycodone as she does not gag on the pill. Complains of pain generalized but mostly to back, hip areas. Rating 7-8/10 and sometimes worse with activity. Feels IV bup and oxycodone are helping - Reviewed nausea meds, steroids - denies constipation - slept better overnight - questions/concerns addressed 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 MANAGER mets Constipation: yes Last Bowel Movement: 05/21/24 Analgesic Medications (24hr use): - IV bup -0.27mg - 15mg oxycodone - Butrans 10mcg/hr Td patch OME (Oral Morphine Equivalents): 05/21: 73.5 ome 05/20: 39 ome 05/19: ~37 Physical Exam: Temp: [98.1 F (36.7 C)-98.6 F (37 C)] 98.1 F (36.7 C) Pulse (Heart Rate): [90-106] 106 Resp Rate: [16] 16 BP: (118-130)/(60-89) 121/89 O2 Sat (%): [92 %-96 %] 92 % CONSTITUTIONAL/GENERAL: Chronically ill appearing, grimace with positioning, moderate acute distress EYES: Pupils symmetric; Anicteric sclerae, moist conjunctivae RESPIRATORY: Unlabored, normal effort; Symmetric chest wall rise NEUROLOGIC: No gross motor or sensory deficits appreciated PSYCHIATRY: Alert. Appropriate affect Data Reviewed: Lab Results Component Value Date WBC 4.86 05/21/2024 HGB 9.5 (L) 05/21/2024 HCT 29.3 (L) 05/21/2024 PLATELET 373 05/21/2024 SODIUM 138 05/21/2024 POTASSIUM 3.0 (L) 05/21/2024 CHLORIDE 108 05/21/2024 MAGNESIUM 1.5 (L) 05/21/2024 CALCIUM 9.5 05/20/2024 CO2 22 05/21/2024 BUN 5 (L) 05/21/2024 CREATSERUM 0.31 (L) 05/21/2024 INR 1.0 05/18/2024 ALBUMIN 2.5 (L) 05/21/2024 AST 21 05/21/2024 ALT 9 05/21/2024 ALKPHOS 79 05/21/2024 BILITOTAL 0.2 05/21/2024 BILIDIRECT <0.1 05/21/2024 Estimated Creatinine Clearance: 156 mL/min (A) (by C-G formula based on SCr of 0.31 mg/dL (L)). Labs/results reviewed: Chem-7, LFTs, CBC, INR, and OARRs Lab review summary: - labs reviewed and appropriate for current symptom management regimen - patient with evidence of renal impairment External Notes: OARRS. Summary: -- Active Rx for butrans 5mcg/hr patch, oxycodone 5mg #56 14d supply -- Previous Rx for tramadol 50 Date: 05/11, Outpatient Palliative note, Summary: Pain in back, pelvis, ribs w/ osseous mets, oxycodone making drowsy, started butrans, olanzapine for nausea, draining 400-500 ml from pleur-x daily Date: 05/12, Outpatient med onc note, Summary: Plan for RT from 05/10- for R femoral fracture, OK to proceed with C2D1 ribociclib/fulvestrant. Plan for zometa w/ dental clearance. Summary of imaging results: MR brain w/ numerous enhancing lesions consistent with metastatic disease in parenchyma, dura, and skull. I independently interpreted the following imaging: CT abd pelvis from 05/19 -- moderate colonic stool burden, possible new hepatic mets? I independantly interpreted the following medicine tests: - EKG: Date:04/28, QTc: 422 ms Clinical assessment, tests and recommendations were discussed with: - CMG RESTAURANT CREW - bedside nurse - patient - family spouse, daughter Appointment Details: [x] Scheduled Appointment(s) Doctor/ Clinic: Interventional Radiology Date: PENDING discharge Time: Arrival Time: Comments: IR is not able to schedule outpatient procedures during inpatient stay. They will call the patient to schedule after discharge to schedule appointment for liver biopsy. Marysol Cotton CM/SW Computer Forensics Examiner Please contact the PCRM or family service worker assigned to this patient's care team during regular daytime hours. PCRM: If any changes are required of this individualized plan of care during evening or weekend hours and assistance is needed, please page the retail client solutions consultant PCRM at [phone] Social Work: For Evening (4:30pm-8am) and Weekend SW needs please call [phone] or page [phone] CANCER MEDICINE INPATIENT PROGRESS NOTE TODAY'S DATE: 05/21/2024 ADMIT DATE: 05/18/2024 6:40 PM REASON FOR ADMISSION: FTT, n/v Primary Oncologist: Carlos He ASSESSMENT AND PLAN Tiny Marte is a 63 y.o. female with a PMH of GERD, hypothyroidism, pleural effusions s/p right pleurx, and metastatic breast cancer who was a direct admission for c/o nausea, vomiting, pain and FTT. ACUTE PROBLEMS Nausea, vomiting FTT Hypercalcemia of malignancy- improving ND Brain mets UTI - c/o persistent nausea/vomiting and fatigue, worsening over past week with poor po intake - Ca 13.6, albumin 3.6 on admission. iCa daily and calcium q6. After discussion with pharmacy, zometa and calcitonin x1 given 05/19. MIV 200 ml/hr, weaned off 05/21 - pth intact low at 9 and vit d 40.8 - iCa improved to 5.55 05/20 - Urine culture positive for mixed microbes, will treat with ceftriaxone 3 days (05/20- ). CXR unremarkable for acute process - CTAP showing progression of osseous metastases as well as new disease in liver - MRI brain ordered: Showing metastatic spread to brain. Oncologist notified of results - Rad onc c/s: - She will be a candidate for hippocampal whole brain RT vs fSRS for her brain metastases. No urgent indication for inpatient radiation at this time given small, likely asymptomatic brain metastases. Final plan depending on discussion with her medical oncology team. - Plan to see her outpatient for management of her brain metastases. - Will reschedule CT simulation without contrast for treating her painful bone metastases to 05/20 (right hip and lumbar spine) -Recommend MRI total spine. Ordered PPM consult: - Continue olanzapine to 5mg at bedtime - Schedule haldol 1mg q8h x 5 doses as bridge to olanzapine efficacy, - Continue haldol 0.5mg PO/IV q6h PRN (note doses <3mg / 24h should not prolong the qtc) - Change zofran to 4mg PO/IV q4h PRN 2nd line - Avoid phenergan given concern for sedation w/ anticholinergic meds -Dexamethasone bid ordered IV for five days starting 05/20. Okay per oncologist Cancer related pain - c/o pain to right side into right back and now left side, hips, legs. Same pain, just worse - follows with PPM outpatient - cont home butrans patch and oxycodone prn. Dilaudid prn IV break thru pain - c/s PPM: - Long acting opioid: Continue butrans to 10mcg/hr TD patch - Short acting opioids: -- Continue oxycodone 5mg q4h PRN -- Start IV buprenex 0.09mg q4h PRN if unable to tolerate PO -- Please wait at least one hour after giving oral opioid prior to giving IV - Monitor for opioid toxicities including oversedation/worsening mental status, respiratory depression, constipation, urinary retention, myoclonus, and uncontrolled nausea/vomiting. - Adjuvants: -- Consideration of steroids as above for nausea -- Start lidocaine patches over chest wall for MSK discomfort Metastatic breast cancer - follows with Dr. He - known bone mets - s/p fixation and then radiation to right femur, last treatment 05/14 - current tx: faslodex (C1D1 05/12) and ribociclib. - pt has ribociclib with her, would just need ordered by oncologist - MRIB and CTAP ordered as above. Dr He notified 05/19 of results. Asking for liver biopsy to be done IP vs OP Complexity. Hypokalemia - Continue to monitor and replete. Hypomagnesemia - Continue to monitor and replete. Hypophosphatemia - Continue to monitor and replete. . Any conditions listed below are present on admission unless otherwise specified. . Body mass index is 22.19 kg/m . CHRONIC PROBLEMS Hypothyroidism - cont home levothyroxine GERD - cont home pepcid DVT prophylaxis: Hold considering MRIB as above Diet: DIET REGULAR Continuous Infusions: Code Status: Full Code Serious Illness Conversation: NA Disposition: The patient will require continued hospitalization for above. They are expected to discharge to [facility] . Today they are expected to be medically ready for discharge in 2-3 days Follow-ups made: Follow-ups needed: SUBJECTIVE Patient presents to team lying in bed, A&O x4, in pleasant mood appropriate for situation. States symptoms continues better controlled today with medication support. A little more sob today, will drain pleurx and get chest xray to assess today. Denies n/v/d, or f/c at this time. Discussed plan and new information to patient and spouse at bedside as above. Remainder of ROS queried and negative. Hypercalcemia significantly improved. OBJECTIVE Temp: [98.1 F (36.7 C)-98.6 F (37 C)] 98.1 F (36.7 C) Pulse (Heart Rate): [87-106] 106 Resp Rate: [16] 16 BP: (111-142)/(58-89) 121/89 O2 Sat (%): [92 %-97 %] 92 % General: A&O to self, time, place, and situation. NAD. Forgetful HEENT: EOMI, anicteric sclerae, conjunctivae & lids symmetrical. No signs of inflammation. Neck no rigidity. Not STILLAGUAMISH. MMM, no erythema, exudates, or lesions. Dentition intact. Respiratory: Clear to auscultation bilaterally, no crackles/rhonchi/wheezes, no increased WOB. Cardiovascular: RRR, no murmurs, rubs, clicks or gallops, no peripheral edema, cap refill brisk. Abdomen: Normoactive BS. Abdomen soft, nontender, nondistended. No palpable masses. Neurologic: CN II-XII intact. No focal deficits. Speech clear and coherent. Follows commands. Skin: Color, texture, and turgor normal. No rashes or lesions. Psychosocial: Affect appropriate PIV with no evidence of erythema, drainage, or tenderness. Dressing is clean, dry, and intact. Plan of care reviewed with the attending, Dr. Guadalupe: in agreement. Johnny Nevarez, INTERNAL AFFAIRS COMMANDER-[facility] Pager: [phone] The provider may be reached from 7a-7p at pager listed on QGenda. After these hours please page the contracts officer or moonlighter. Associated attestation - Carlos Guadalupe MD - 05/21/2024 4:43 PM EST I have personally seen the patient on 05/21/24, spent 45 minutes to perform critical or yarbrough portions of the service, participated in the management of the patient. I agree with the physical exam as stated below. Case discussed on rounds with the ISHA and the team. I have personally reviewed all available clinical data related to today's encounter including, but not limited to, labs, radiology images and reports, procedure reports, outside medical records, and EKG/telemetry tracings if applicable. I agree with the documented assessment and plan, with the following comments/corrections/additions. Discussed the diagnosis and plan of care with the patient and/or family who are in agreement. Interval History: -No acute event overnight, -Calcium level improving -Liver biopsy scheduled 05/[address] He request Assessment: Tiny Marte is a 63 y.o. female with a PMH of GERD, hypothyroidism, pleural effusions s/p right pleurx, and metastatic breast cancer who was a direct admission for c/o nausea, vomiting, pain and FTT. Active problem list: # Symptomatic Hypercalcemia, improving # Nausea, vomiting # FTT # ND Brain mets # Cancer related pain # Metastatic breast cancer Plans: - s/p Zometa and calcitonin, continue mIVF, monitor Calcium level -Follow PPM recommendation for pain control - Liver biopsy scheduled 05/[address] He request -Per Rad onc patient need fSRS (3 fraction) for brain mets outpatient, CT sim today Please refer to the ISHA note below for further details. Carlos Guadalupe MD Clinical Oxygen Therapist Division of [facility] Medicine Pager [phone] Appointment Details: [x] Scheduled Appointment(s) Doctor/ Clinic: Dr. Coronel/ Palliative Med Date: 06/18/24 Time: 12:15PM Arrival Time: VIDE\O Comments: Previously scheduled appointment for follow up is the first available with the doctor. This is a video visit through EPS and there is no need to go the office for this appointment. Marysol Cotton CM/SW Computer Forensics Examiner Please contact the PCRM or family service worker assigned to this patient's care team during regular daytime hours. PCRM: If any changes are required of this individualized plan of care during evening or weekend hours and assistance is needed, please page the retail client solutions consultant PCRM at [phone] Social Work: For Evening (4:30pm-8am) and Weekend SW needs please call [phone] or page [phone] Palliative Medicine Consult Note Impression: Tiny Marte is a 63 y.o. female with a PMH relevant for metastatic breast CA (mets to brain, bone, lung). Admitted for management of N/V and FTT. Our team is consulted for assistance with symptom management. Assessment/Plan: Palliative Care by Specialist: - Code Status: Full Code. Addressed this encounter: No - Palliative Performance Status: 40% - Goals of Care: have not discussed in this encounter - I did not assess capacity today. - The patient does not have an HPOA. Spouse is legal next of kin Garrett Marte [phone] - Patient established with [facility] palliative medicine [facility]. We can manage opioid prescriptions at discharge. #Nausea - poorly controlled Etiology likely multifactorial with both central and peripheral contributions. With subacute worsening over weeks and new MRI findings w/ diffuse parenchymal mets, concern that elevated intracranial pressure could be driving large portion of the nausea burden. May be some superimposed CINV given report that she was feeling well until trying to take in large PO quantity of contrast earlier today. 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 - Continue olanzapine to 5mg at bedtime (increased 05/19) - Schedule haldol 1mg q8h x 5 doses as bridge to olanzapine efficacy- will stop tonight - Continue haldol 0.5mg PO/IV q6h PRN (note doses <3mg / 24h should not prolong the qtc) - Continue zofran to 4mg PO/IV q4h PRN 2nd line - Avoid phenergan given concern for sedation w/ anticholinergic meds - Continue IV Dexamethasone 4mg BID (8am/noon) x 5days (okay by oncology team) #Cancer Related Pain moderately controlled #Neuropathic Pain #Chest wall Pain Etiology of pain is primarily due to malignant burden w/ known diffuse bony mets. Pain is neuropathic, Msk/inflammatory, nociceptive in nature. Pain appears to be appropriately opioid responsive. With concern for intermittent uncontrolled nausea limiting ability to tolerate PO PRNs, will favor escalation of butrans and using IV buprenorphine while admitted w/ hope that we can return to using PO PRNs by the time of discharge. - Long acting opioid: Continue butrans to 10mcg/hr TD patch (increased 05/19) - Short acting opioids: -- Change oxycodone to conc liquid 5mg q4h PRN -- Continue IV buprenex 0.09mg q4h PRN if unable to tolerate PO -- Please wait at least one hour after giving oral opioid prior to giving IV - Monitor for opioid toxicities including oversedation/worsening mental status, respiratory depression, constipation, urinary retention, myoclonus, and uncontrolled nausea/vomiting. - Adjuvants: -- Steroids as above may also provide analgesic benefit -- Start lidocaine patches over chest wall for MSK discomfort -- S/p zometa x1 on 05/19 for bony pain -- APAP PRN #Opioid Induced Constipation - moderately controlled No recent BM with poor PO intake and inability to tolerate bowel reg, will favor initiation a [place] regimen while nausea limits PO regimen - Avoid docusate as it is likely ineffective for pt's constipation - Increase Senna to 2 tabs BID as tolerated - Continue Miralax 17g qday PRN as tolerated - Start bisacodyl suppository qday PRN Last Bowel Movement: 05/19/24 (per pt report) #Insomnia - poorly controlled Likely related to uncontrolled symptoms. Medical management as above. - Melatonin 6mg PO at bedtime PRN Complexity. Any conditions listed below are present on admission unless otherwise specified.. We will continue to follow. Palliative Medicine QGenda Link - Service to contact: Palliative Medicine 3 Reason for Visit: Pain and Nausea History of Present Illness: Pertinent PMH: metastatic breast CA (mets to brain / bone / lung c/b pleural effusion s/p R pleurx), GERD, hypothyroidism Pertinent hospital events: MRI demonstrated new SALES DEVELOPMENT MANAGER mets, pending CT abd read - Patient seen returning from radiation. Spouse at bedside. Needs assistance into bed and positioning. Grimacing with positioning - Reports pain to joints, ribs, hips, back- very generalized pain syndrome. Tolerating oxycodone. Trouble with gagging from any pill so will trial liquid - Nausea improved with medications. Very small emesis this AM after taking medication. Holds emesis bag. Starting steroids - Did not sleep well due to symptoms and frequent interruptions - Having BMs now - Patient appears overwhelmed and states all of the information they are receiving has been a lot to process. Denies feeling anxious or mind racing. Discussed not worrying about asking for specific medications but rather just telling nurse when she is nauseated or in pain and ultimately regimen will be simplified closer to discharge. No further questions/concerns. Asking about discharge timing 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 MANAGER mets Constipation: yes Last Bowel Movement: 05/19/24 (per pt report) Analgesic Medications (24hr use): - 10mg oxycodone - Butrans 10mcg/hr Td patch OME (Oral Morphine Equivalents): 05/20: 39 ome 05/19: ~37 Physical Exam: Temp: [98.2 F (36.8 C)-98.9 F (37.2 C)] 98.5 F (36.9 C) Pulse (Heart Rate): [86-122] 96 Resp Rate: [16-18] 16 BP: (125-151)/(68-88) 142/75 O2 Sat (%): [89 %-98 %] 97 % CONSTITUTIONAL/GENERAL: Chronically ill appearing, grimace with positioning, moderate acute distress EYES: Pupils symmetric; Anicteric sclerae, moist conjunctivae NECK: Trachea midline, supple RESPIRATORY: Unlabored, normal effort; Symmetric chest wall rise NEUROLOGIC: No gross motor or sensory deficits appreciated PSYCHIATRY: Alert. Appropriate affect Data Reviewed: Lab Results Component Value Date WBC 5.33 05/20/2024 HGB 10.4 (L) 05/20/2024 HCT 32.8 (L) 05/20/2024 PLATELET 373 05/20/2024 SODIUM 136 05/20/2024 POTASSIUM 3.9 05/20/2024 CHLORIDE 102 05/20/2024 MAGNESIUM 1.3 (L) 05/20/2024 CALCIUM 9.5 05/20/2024 CO2 25 05/20/2024 BUN 7 05/20/2024 CREATSERUM 0.51 05/20/2024 INR 1.0 05/18/2024 ALBUMIN 3.6 05/18/2024 AST 40 (H) 05/18/2024 ALT 16 05/18/2024 ALKPHOS 126 05/18/2024 BILITOTAL 0.4 05/18/2024 BILIDIRECT <0.1 05/18/2024 Estimated Creatinine Clearance: 95 mL/min (by C-G formula based on SCr of 0.51 mg/dL). Labs/results reviewed: Chem-7, LFTs, CBC, INR, and OARRs Lab review summary: - labs reviewed and appropriate for current symptom management regimen - patient with evidence of renal impairment External Notes: OARRS. Summary: -- Active Rx for butrans 5mcg/hr patch, oxycodone 5mg #56 14d supply -- Previous Rx for tramadol 50 Date: 05/11, Outpatient Palliative note, Summary: Pain in back, pelvis, ribs w/ osseous mets, oxycodone making drowsy, started butrans, olanzapine for nausea, draining 400-500 ml from pleur-x daily Date: 05/12, Outpatient med onc note, Summary: Plan for RT from 05/10- for R femoral fracture, OK to proceed with C2D1 ribociclib/fulvestrant. Plan for zometa w/ dental clearance. Summary of imaging results: MR brain w/ numerous enhancing lesions consistent with metastatic disease in parenchyma, dura, and skull. I independently interpreted the following imaging: CT abd pelvis from 05/19 -- moderate colonic stool burden, possible new hepatic mets? I independantly interpreted the following medicine tests: - EKG: Date:04/28, QTc: 422 ms Clinical assessment, tests and recommendations were discussed with: - CMG RESTAURANT CREW - bedside nurse - patient - family spouse CANCER MEDICINE INPATIENT PROGRESS NOTE TODAY'S DATE: 05/20/2024 ADMIT DATE: 05/18/2024 6:40 PM REASON FOR ADMISSION: FTT, n/v Primary Oncologist: Carlos He ASSESSMENT AND PLAN Tiny Marte is a 63 y.o. female with a PMH of GERD, hypothyroidism, pleural effusions s/p right pleurx, and metastatic breast cancer who was a direct admission for c/o nausea, vomiting, pain and FTT. ACUTE PROBLEMS Nausea, vomiting FTT Hypercalcemia of malignancy- improving ND Brain mets - c/o persistent nausea/vomiting and fatigue, worsening over past week with poor po intake - Ca 13.6, albumin 3.6 on admission. iCa daily and calcium q6. After discussion with pharmacy, zometa and calcitonin x1 given 05/19. MIV 200 ml/hr - pth intact low at 9 and vit d 40.8 - iCa improved to 5.55 05/20 - Urine culture pending. CXR unremarkable for acute process - CTAP showing progression of osseous metastases as well as new disease in liver - MRI brain ordered: Showing metastatic spread to brain. Oncologist notified of results - Rad onc c/s: - She will be a candidate for hippocampal whole brain RT vs fSRS for her brain metastases. No urgent indication for inpatient radiation at this time given small, likely asymptomatic brain metastases. Final plan depending on discussion with her medical oncology team. - Plan to see her outpatient for management of her brain metastases. - Will reschedule CT simulation without contrast for treating her painful bone metastases to 05/20 (right hip and lumbar spine) PPM consult: - Increase olanzapine to 5mg at bedtime - Schedule haldol 1mg q8h x 5 doses as bridge to olanzapine efficacy, - Start haldol 0.5mg PO/IV q6h PRN (note doses <3mg / 24h should not prolong the qtc) - Change zofran to 4mg PO/IV q4h PRN 2nd line - Avoid phenergan given concern for sedation w/ anticholinergic meds Cancer related pain - c/o pain to right side into right back and now left side, hips, legs. Same pain, just worse - follows with PPM outpatient - cont home butrans patch and oxycodone prn. Dilaudid prn IV break thru pain - c/s PPM: - Long acting opioid: Increase butrans to 10mcg/hr TD patch - Short acting opioids: -- Continue oxycodone 5mg q4h PRN -- Start IV buprenex 0.09mg q4h PRN if unable to tolerate PO -- Please wait at least one hour after giving oral opioid prior to giving IV - Monitor for opioid toxicities including oversedation/worsening mental status, respiratory depression, constipation, urinary retention, myoclonus, and uncontrolled nausea/vomiting. - Adjuvants: -- Consideration of steroids as above for nausea -- Start lidocaine patches over chest wall for MSK discomfort Metastatic breast cancer - follows with Dr. He - known bone mets - s/p fixation and then radiation to right femur, last treatment 05/14 - current tx: faslodex (C1D1 05/12) and ribociclib. - pt has ribociclib with her, would just need ordered by oncologist - MRIB and CTAP ordered as above. Dr He notified 05/19 of results Complexity. Hypomagnesemia - Continue to monitor and replete. . Any conditions listed below are present on admission unless otherwise specified. . Body mass index is 22.19 kg/m . CHRONIC PROBLEMS Hypothyroidism - cont home levothyroxine GERD - cont home pepcid DVT prophylaxis: Hold considering MRIB as above Diet: DIET REGULAR Continuous Infusions: Sodium chloride 0.9% 125 mL/hr at 05/20/24 0807 Code Status: Full Code Serious Illness Conversation: NA Disposition: The patient will require continued hospitalization for above. They are expected to discharge to D . Today they are expected to be medically ready for discharge in 3-5 days Follow-ups made: Follow-ups needed: SUBJECTIVE Patient presents to team lying in bed, A&O x4, in pleasant mood appropriate for situation. States symptoms are much better controlled today with medication support. Discussed plan and new information to patient and spouse at bedside as above. Remainder of ROS queried and negative. Hypercalcemia significantly improved. OBJECTIVE Temp: [97.8 F (36.6 C)-98.9 F (37.2 C)] 98.9 F (37.2 C) Pulse (Heart Rate): [86-122] 122 Resp Rate: [16-18] 18 BP: (125-161)/(68-88) 151/85 O2 Sat (%): [89 %-98 %] 89 % General: A&O to self, time, place, and situation. NAD. Forgetful HEENT: EOMI, anicteric sclerae, conjunctivae & lids symmetrical. No signs of inflammation. Neck no rigidity. Not STILLAGUAMISH. MMM, no erythema, exudates, or lesions. Dentition intact. Respiratory: Clear to auscultation bilaterally, no crackles/rhonchi/wheezes, no increased WOB. Cardiovascular: RRR, no murmurs, rubs, clicks or gallops, no peripheral edema, cap refill brisk. Abdomen: Normoactive BS. Abdomen soft, nontender, nondistended. No palpable masses. Neurologic: CN II-XII intact. No focal deficits. Speech clear and coherent. Follows commands. Skin: Color, texture, and turgor normal. No rashes or lesions. Psychosocial: Affect appropriate PIV with no evidence of erythema, drainage, or tenderness. Dressing is clean, dry, and intact. Plan of care reviewed with the attending, Dr. Guadalupe: in agreement. Johnny Nevarez, ELIAN-BODY FITTER Pager: [phone] The provider may be reached from 7a-7p at pager listed on QGenda. After these hours please page the contracts officer or moonlighter. Associated attestation - Carlos Guadalupe MD - 05/20/2024 5:23 PM EST I have personally seen the patient on 05/20/24, spent 45 minutes to perform critical or yarbrough portions of the service, participated in the management of the patient. I agree with the physical exam as stated below. Case discussed on rounds with the ISHA and the team. I have personally reviewed all available clinical data related to today's encounter including, but not limited to, labs, radiology images and reports, procedure reports, outside medical records, and EKG/telemetry tracings if applicable. I agree with the documented assessment and plan, with the following comments/corrections/additions. Discussed the diagnosis and plan of care with the patient and/or family who are in agreement. Interval History: -No acute event overnight, pain better controlled no new complaint Assessment: Tiny Marte is a 63 y.o. female with a PMH of GERD, hypothyroidism, pleural effusions s/p right pleurx, and metastatic breast cancer who was a direct admission for c/o nausea, vomiting, pain and FTT. Active problem list: # Symptomatic Hypercalcemia, improving # Nausea, vomiting # FTT # ND Brain mets # Cancer related pain # Metastatic breast cancer Plans: - s/p Zometa and calcitonin, continue mIVF, monitor Calcium level -Follow PPM recommendation for pain control -update primary oncologist about new brain met -Per Rad onc patient need fSRS (3 fraction) for brain mets outpatient, CT sim 05/21 - CT sim today for RT to right hip and L spine mets Please refer to the ISHA note below for further details. Carlos Guadalupe MD Clinical Oxygen Therapist Division of [facility] Medicine Pager [phone] Primary service is consulting PICC team for PICC line placement. If a PICC is not possible please reconsult PVAT at #[phone]. Procedure and Vascular Access Pre-Procedure Evaluation Note A consult has been placed for a non-tunneled CVC insertion on this patient. For this procedure, laterality is N/A. Labwork has been reviewed: Lab Results Component Value Date INR 1.0 05/18/2024 Lab Results Component Value Date PLATELET 376 05/18/2024 Hemoglobin Date/Time Value Ref Range Status 05/18/2024 10:34 PM 12.3 11.4 - 15.2 g/dL Final Current Allergies: Allergies Allergen Reactions Codeine Nausea and Vomiting Wound Dressing Adhesive Itching and Rash Code status is FULL The patient is able to provide consent. Consent will be obtained and matches procedure being performed. PLAN - Relevant imaging has been reviewed: NA - Labs are acceptable to proceed with the procedure. - Medication list has been reviewed. There is not medication to hold. - Patient is not required to be NPO. - The estimated start time for this procedure is 05/19/2024. PVAT ISHA: SHEKHAR Escobar Contact # [phone] Summary: Psychosocial Assessment Psychosocial Assessment Per chart review, patient is a 63 y.o., female, who was admitted for c/o nausea, vomiting, pain and FTT. SW met with patient and spouse, Garrett, to introduce self, explain director of social work role during inpatient stay, and answer questions. Patient was alert and oriented x4 and agreeable to SW visit. Contact Information: Credit Risk Manager Name: Please see care team Social Work Contact Name: Please see care team Advance Directive Discussion: Per chart review, patient does not have any advance directives on file, however, patient reports that they have already completed advance directives and states the document(s) are in their car. SW reviewed that without completed document on file, per [place] Law, spouseGarrett, (ph: [phone] or [phone] ) would be their Legal NOK for decision making. SW requested patient provide the hospital with a copy of the document when possible so that it can be scanned into their medical record. Pt and spouse report that they recently completed documents during an appointment and would provide the documents once the spouse went back to the car. Patient agreeable to this plan. Legal NOK: spouse, Garrett Marte, (ph: [phone] or [phone]) Emotional/Psychological: Mood: congruent to situation, congruent to affect Current Interpersonal Conduct/Behavior: appropriate to situation, cooperative Mental Health Conditions/Symptoms: denies Previous Mental Health Treatment: none Emotional/Psychological Comments: Pt denies any history of, or current concerns related to emotional needs or mental health. SW informed pt of options such as PSO, [facility] support groups, and Yeast Culture Operator services if these needs were to ever change. Pt appreciative of support but denied any need at the moment. Distress Screen: Deferred to allow for pt to to rest with family at bedside. Pt endorses good support, limited stressors, and denies any distressing concerns related to physical, emotional, sexual, or spiritual well-being at this time. Patient Coping/Stress Concerns: Patient Coping/Stress Concerns: No Patient Personal Strengths: able to adapt, expressive of emotions, expressive of needs, resilient, positive attitude, motivated, future/goal oriented, strong support system Sources Of Support: adult child(fabiana), spouse, other family members Reaction To Health Status: accepting, adjusting Understanding Of Condition And Treatment: adequate understanding of medical condition, adequate understanding of treatment Living Environment: Lives With: spouse Living Arrangement and Set Up: house (1 level; 3 ARMANI) Caregiver Coping/Stress Concerns: Caregiver Coping/Stress Concerns: No Reaction To Health Status: accepting, adjusting Employment/Financial: Employed?: Retired Employment Details: 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 [employer] Employment/Financial Concerns: no Source Of Income: pension/fpc (PERS) Food Insecurity: Within the past 12 months, you worried that your food would run out before you got the money to buy more.: Never true Within the past 12 months, the food you bought just didn't last and you didn't have money to get more.: Never true Housing Stability: In the last 12 months, was there a time when you were not able to pay the mortgage or rent on time?: No Utilities: In the past 12 months has the [employer], [employer] [employer], [employer], or water [employer] threatened to shut off services in your home?: No Transportation Needs: In the past 12 months, has lack of transportation kept you from medical appointments or from getting medications?: No In the past 12 months, has lack of transportation kept you from meetings, work, or from getting things needed for daily living?: No Alcohol Use: Q1: How often do you have a drink containing alcohol?: Never Substance Use: How many times in the past year have you used illegal drugs?: Never Intimate Partner Violence: Within the last year, have you been afraid of your partner or ex-partner?: Patient unable to answer Within the last year, have you been humiliated or emotionally abused in other ways by your partner or ex-partner?: Patient unable to answer Within the last year, have you been kicked, hit, slapped, or otherwise physically hurt by your partner or ex-partner?: Patient unable to answer Within the last year, have you been raped or forced to have any kind of sexual activity by your partner or ex-partner?: Patient unable to answer Community Resources: Pt is currently working to finalize her Medicare Disability application and denied any need or assistance at this time. No community resource linkage identified at this time. Patient denied the need for resource information and new referrals. Pt was encouraged to contact SW should this status change in the future. Anticipated Discharge Plan: Anticipated Discharge Plan: Unknown/Other Pt confirms that they will have transportation home following discharge and wishes to return home. SW awaiting PT/OT notes at this time for guidance on final dc planning. Medical Team Considerations: Pt lives approx. 95 miles (2 hours away) from [facility], and may benefit from consolidating appointments to be on the same days. SW Interventions/Recommendations: Service SW name and contact information placed on white board in patient's room to contact as needed. SW will continue to remain available to provide assistance and support as needed during inpatient stay. SW provided education around resources available at the [facility] relating to mental health. Informed pt of 23/12 availability of SW if needs change. Reviewed AD and identified LNOK. Identified pt access to resources relevant to [facility]. SW provided emotional support through active listening, normalization of feelings, and validation of feelings. KELY Pace IRP Hotel Service Manager PH: [phone] For Evening (4:30pm-8am), Weekend, and Holiday SW needs please call [phone] or page [phone]. CANCER MEDICINE INPATIENT PROGRESS NOTE TODAY'S DATE: 05/19/2024 ADMIT DATE: 05/18/2024 6:40 PM REASON FOR ADMISSION: FTT, n/v Primary Oncologist: Carlos He ASSESSMENT AND PLAN Tiny Marte is a 63 y.o. female with a PMH of GERD, hypothyroidism, pleural effusions s/p right pleurx, and metastatic breast cancer who was a direct admission for c/o nausea, vomiting, pain and FTT. ACUTE PROBLEMS Nausea, vomiting FTT Hypercalcemia ND Brain mets - c/o persistent nausea/vomiting and fatigue, worsening over past week with poor po intake - Ca 13.6, albumin 3.6 on admission. iCa daily and calcium q6. After discussion with pharmacy, zometa and calcitonin x1 given 05/19. MIV 200 ml/hr - pth and vit d pending - zofran prn nausea. Cont home zyprexa - Urine culture pending. CXR unremarkable for acute process - CTAP ordered - MRI brain ordered: Showing metastatic spread to brain. Oncologist notified of results -Rad onc c/s Cancer related pain - c/o pain to right side into right back and now left side, hips, legs. Same pain, just worse - follows with PPM outpatient - cont home butrans patch and oxycodone prn. Dilaudid prn IV break thru pain - c/s PPM Metastatic breast cancer - follows with Dr. He - known bone mets - s/p fixation and then radiation to right femur, last treatment 05/14 - current tx: faslodex (C1D1 05/12) and ribociclib. - pt has ribociclib with her, would just need ordered by oncologist - MRIB ordered as above. Dr He notified 05/19 of results Complexity. Hyponatremia - Secondary to fluid shifts. Monitor. . Any conditions listed below are present on admission unless otherwise specified. . Body mass index is 22.19 kg/m . CHRONIC PROBLEMS Hypothyroidism - cont home levothyroxine GERD - cont home pepcid DVT prophylaxis: Hold considering MRIB as above Diet: DIET REGULAR Continuous Infusions: Sodium chloride 0.9% 200 mL/hr at 05/19/24 0954 Code Status: Full Code Serious Illness Conversation: NA Disposition: The patient will require continued hospitalization for above. They are expected to discharge to TBD . Today they are expected to be medically ready for discharge in 3-5 days Follow-ups made: Follow-ups needed: SUBJECTIVE Patient presents to team lying in bed, A&O x4, in pleasant mood appropriate for situation. States symptoms are a bit better controlled today with medication support. Discussed plan and new information to patient and spouse at bedside as above. Remainder of ROS queried and negative. OBJECTIVE Temp: [98.2 F (36.8 C)-98.7 F (37.1 C)] 98.7 F (37.1 C) Pulse (Heart Rate): [98-112] 98 Resp Rate: [15-17] 15 BP: (145-182)/(78-103) 145/78 O2 Sat (%): [90 %-95 %] 95 % Weight: [56.8 kg (125 lb 3.5 oz)] 56.8 kg (125 lb 3.5 oz) General: A&O to self, time, place, and situation. NAD. Forgetful HEENT: EOMI, anicteric sclerae, conjunctivae & lids symmetrical. No signs of inflammation. Neck no rigidity. Not STILLAGUAMISH. MMM, no erythema, exudates, or lesions. Dentition intact. Respiratory: Clear to auscultation bilaterally, no crackles/rhonchi/wheezes, no increased WOB. Cardiovascular: RRR, no murmurs, rubs, clicks or gallops, no peripheral edema, cap refill brisk. Abdomen: Normoactive BS. Abdomen soft, nontender, nondistended. No palpable masses. Neurologic: CN II-XII intact. No focal deficits. Speech clear and coherent. Follows commands. Skin: Color, texture, and turgor normal. No rashes or lesions. Psychosocial: Affect appropriate PIV with no evidence of erythema, drainage, or tenderness. Dressing is clean, dry, and intact. Plan of care reviewed with the attending, Dr. Guadalupe: in agreement. Johnny Nevarez APRN-BODY FITTER Pager: [phone] The provider may be reached from 7a-7p at pager listed on [employer]Genda. After these hours please page the contracts officer or moonlighter. Associated attestation - Carlos Guadalupe MD - 05/19/2024 7:22 PM EST I have personally seen the patient on 05/19/24, spent 45 minutes to perform critical or yarbrough portions of the service, participated in the management of the patient. I agree with the physical exam as stated below. Case discussed on rounds with the ISHA and the team. I have personally reviewed all available clinical data related to today's encounter including, but not limited to, labs, radiology images and reports, procedure reports, outside medical records, and EKG/telemetry tracings if applicable. I agree with the documented assessment and plan, with the following comments/corrections/additions. Discussed the diagnosis and plan of care with the patient and/or family who are in agreement. Interval History: -No acute event overnight, pain better controlled no new complaint Assessment: Tiny Marte is a 63 y.o. female with a PMH of GERD, hypothyroidism, pleural effusions s/p right pleurx, and metastatic breast cancer who was a direct admission for c/o nausea, vomiting, pain and FTT. Active problem list: # Symptomatic Hypercalcemia # Nausea, vomiting # FTT # ND Brain mets # Cancer related pain # Metastatic breast cancer Plans: -Continue mIVF, will give Zometa and calcitonin today, continue monitor Calcium level -Follow PPM recommendation for pain regimen -update primary oncologist about new brain met -pending CT-A/p -Rad onc consulted pending input Please refer to the ISHA note below for further details. Carlos Guadalupe MD Clinical Oxygen Therapist Division of [facility] Medicine Pager [phone] Acute Occupational Therapy Evaluation Prior Gross Functional Mobility: independent (Baseline status prior to March 2024) Current AM-PAC score(s): CURRENT AM-PAC Activity Raw Score: 18 Based on the above AM-PAC score(s) and OT clinical judgment, discharge destination recommendation is: Home with Home Health Mobility equipment available at home: 2 wheeled walker, manual wheelchair, oxygen (nocturnal 2LO2 - O2 concentrator; wheelchair - borrowed from friends) ADL equipment available at home: shower chair Equipment recommendations for discharge: none Current therapy frequency recommendation(s) in acute: 4 times a week Activity Recommendations for outside of rehab session: x1 assist w/ FWW Precautions and Weightbearing Status: Urinary catheter (external) Patient Safety Communication Prior to Visit: Nursing Right Lower Extremity : weight bearing as tolerated (s/p femur fixation (03/19/24)) Subjective: Pt found seated in bed w/ at bedside and agreeable to OT eval. Pain: General Pain Documentation (Adult, OB, Peds) Presence of Pain: reports pain/discomfort Pain Location: abdomen, back DVPRS (Defense and Veterans Pain Rating Scale) DVPRS: Rest: 0- no pain DVPRS: Activity: 4- mild pain Home Setting Residence: House (with basement (not required)) Lives With: spouse (retired) Patient receives help from : spouse (50% assist with ADL/Lower body bathing since 03/2024 Lt femur fixation - previously Independent) Patient reported support for discharge plannin hour supervision, 24 hour physical assistance First floor setup: bedroom, walk-in shower (laundry) Second floor setup: (basement - not required) Number of stairs to enter home: 3 (Rt rail ascending) Number of stairs in home: 12 (with rail to basement) Mobility Equipment Available: 2 wheeled walker, manual wheelchair, oxygen (nocturnal 2LO2 - O2 concentrator; wheelchair - borrowed from friends) ADL Equipment Available: shower chair 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 ; 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 [employer] Previous Level of Function Gross Functional Mobility: independent (Baseline status prior to March 2024) Assistive Device: 2 wheeled walker ((in home since Mar); wheelchair in community since March; No DME of demand prior to March & 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 O2 Device: room air Vision Screen Currently wearing corrective lenses: Yes Visual Impairments Observed?: No Speech Speech: no gross deficits noted Successful Methods (Communication Strategies): verbal speech Hearing Hearing: no gross deficits noted Cognition Overall Cognitive Status: Within Functional Limits Arousal/Alertness: Appropriate responses to stimuli Following Commands: Follows all commands and directions without difficulty Safety Judgment: Good awareness of safety precautions Awareness of Errors: Good awareness of errors made Deficits: Fully aware of deficits Attention Span: Appears intact Memory: Unable to assess Problem Solving: Able to problem solve independently ADLs: ADL Assessment: Assessed All ADLs (anticipated level of assist) ADL Anticipated Performance (ADLs not directly observed this session): Eating, Grooming, Bathing, UE Dressing, LE Dressing, Toileting Eating Assistance: Independent Grooming Assistance: Stand by Bathing Assistance: Minimal UE Dressing Assistance: Set up supervision LE Dressing Assistance: Moderate Toilet Assistance: Contact guard assist Extremity Assessments: RUE Assessment RUE Assessment: Within Functional Limits LUE Assessment LUE Assessment: Within Functional Limits Balance: Sitting Balance Static Sitting-Level of Assistance: Supervision Dynamic Sitting-Level of Assistance: Standby Standing Balance Static Standing-Level of Assistance: Contact guard Dynamic Standing-Level of Assistance: Contact guard Standing-Balance Support: Gait belt, 2 wheeled walker Neuro: Sensation Overall Sensation: Impaired Sensation Comments: reports n/t in thumb, index finger, and middle finger on L hand Proprioception Proprioception: not tested Gross Coordination Gross Coordination: bilat UE intact Fine Motor Coordination Additional Documentation: No Skin and Edema: Edema Edema: not tested, none noted Mobility Assessment: Rolling/Turning Mobility Bay Level: Rolling/Turning: not tested Scooting Bridging Mobility Bay Level: Scooting/Bridging: not tested Supine to Sit Mobility Bay Level: Supine->Sit: stand-by assist Bed Features/Set-up: Supine->Sit: Head of bed elevated Skilled Intervention/Details: Supine->Sit: Pt performed bed mobility from seated in bed to seated EOB w/ SBA. Sit to Supine Mobility Bay Level: Sit->Supine: not tested Skilled Intervention/Details: Sit->Supine: pt reamined seated in chair Transfer Assessment: Sit to Stand Transfer Bay Level: Sit->Stand: contact guard assist Assistive Device: Sit->Stand: gait belt, 2 wheeled walker Skilled Intervention/Details: Sit->Stand: Pt performed x1 STS from EOB w/ FWW and CGA. Stand to Sit Transfer Bay Level: Stand->Sit: contact guard assist Assistive Device: Stand->Sit: gait belt, 2 wheeled walker Skilled Intervention/Details: Stand->Sit: Pt performed x1 STS from standing to seated in armed chair w/ FWW and CGA. Bed-Chair Transfer Bay Level: Bed<->Chair: not tested Toilet Transfer Bay Level: Toilet: not tested Functional Mobility: Functional Mobility Bay Level: Functional Mobility/Gait: contact guard assist Assistive Device: Functional Mobility/Gait: 2 wheeled walker, gait belt Functional Mobility Distance: Distance needed for common household mobility Functional Mobility Deficits: Activity tolerance, Balance, Generalized weakness, Pain, Slowed gait speed Skilled Intervention/Details - Functional Mobility/Gait: Pt ambulated in hallway w/ FWW and CGA - no LOB noted. Wheelchair Assessment Patient currently uses wheelchair?: Yes (Pt reports using w/c in the community post surgery - prior to surgery pt did not utilize) Outcome Score(s): CURRENT [facility] Daily Activity Inpatient Short Form Putting on/Taking Off Lower Body Clothin - A Lot of Assistance Bathin - A Little Assistance Toiletin - A Little Assistance Putting on/Taking Off Upper Body Clothin - A Little Assistance Groomin - A Little Assistance Eatin - No Assistance CURRENT [facility] Activity Raw Score: 18 CURRENT [facility] Activity Functional Limitation/Modifier: 46.65% Currently Impaired in Daily Activity - CK Interventions: Intervention 1 Intervention Name: AE for LB dressing Details: Pt educated on and shown demonstration of use of sock aid, long handled shoe horn, boring machine operator vertical, and long handled sponge. Pt verbalized understanding. Assessment & Plan: Patient was admitted for c/o nausea, vomiting, pain and FTT and seen for therapy evaluation related to deconditioning and 2/2 disease progression' impacting I/ADLs and functional transfers. Exam findings include impairments in: balance, endurance, pain with movement, strength, transfers. These impairments contribute to occupational performance limitations including bathing, dressing, grooming, toileting, functional mobility, community integration, home management tasks. The following factors impact the plan of care: Psychosocial Factors Positive indicators for performance: Adequate support system, Positive interpersonal relationships Possible barriers for performance: None Patient will benefit from skilled occupational therapy to address these impairments, occupational performance limitations, and participation restrictions. Patient's rehab potential is: good. Planned Therapy Interventions (OT Eval): ADL retraining, IADL retraining, balance training, functional activity tolerance, strengthening, transfer training Patient Instruction/Education this session: Learners: Patient Education provided: Activity outside of therapy, Adaptive equipment use Teaching method: Verbal Education/Instruction Learner response: States/Identifies/Teaches back Learning considerations: No barriers/ready to learn Plan for next session: ADLs and functional transfers Acute OT Goals Plan of Care by Allyson Ferrell OT at 05/19/2024 10:13 AM Version 1 of 1 Problem: OT - ADLs Goal: Lower Body Dressing - Patient will complete lower body dressing tasks with supervision using adaptive equipment/compensatory strategies as needed for improved ability to complete self-care activities. Outcome: Ongoing Goal: Grooming - Patient will complete grooming in standing with modified independence for improved ability to safely complete ADLs. Outcome: Ongoing Goal: Toileting - Patient will complete toileting task with modified independence and adaptive equipment as needed for improved ability to safely complete self-care activities. Outcome: Ongoing Problem: OT - Balance Goal: Balance - Standing - Patient will perform 15 minutes of functional task in standing with modified independence and good balance to promote safety and improved balance required for self-care activities. Outcome: Ongoing Problem: OT - Endurance Goal: Endurance Functional Mobility - Patient will complete distance needed for common household mobility with no rest breaks for improved tolerance to safely complete I/ADL's Outcome: Ongoing Problem: OT - Strength/ROM Goal: Strength/ROM ADL Participation - Patient will participate in UE exercise program with modified independence to prevent deconditioning while in hospital and to max UE ROM/Coordination/strength for ADLs. Outcome: Ongoing OT treatment consisted of the following to work and progress towards the above goal(s): OT Evaluation and Treatment Time OT Evaluation (Low) Time Entry: 20 Self Care/Home Management (ADLs) Time Entry: 8 Evaluating Therapist: Allyson Ferrell OT Additional Details: OT Co-Eval/Treatment Information Co-evaluation/co-treatment performed?: Yes, simultaneous billable skilled care was necessary due to medical complexity and functional deficits Other discipline: PT Rationale for need to co-eval/treat: postural control OT Evaluation Complexity Occupational Profile and Client History: Low - brief history Assessment of Occupational Performance: Low (1-3 performance deficits) Clinical Decision/Performance Deficits: Low (problem-focused assessments w/limited treatment options) Time In: 1013 Time Out: 1041 Total Visit Time: 28 minutes Total Treatment Time (skilled, billable minutes): 28 minutes PPE used during patient interaction: gloves Patient location at end of session: chair Alarms on at end of session: none altered, none Needs in reach. Upon discontinuation of Acute Care Occupational Therapy Services or patient discharge from the hospital this note represents the current Occupational Therapy Discharge Summary. Acute Physical Therapy Evaluation Prior Gross Functional Mobility: independent (Baseline status prior to March 2024) Current AM-PAC score(s): CURRENT AM-PAC Mobility Raw Score: 19 Based on the above AM-PAC score(s) and PT clinical judgment, patient is a good candidate for discharge to Home with Outpatient Rehab Services (and available family support) Barriers to discharge home: Patient needs assistance with functional mobility Mobility equipment available at home: 2 wheeled walker, manual wheelchair, oxygen (nocturnal 2LO2 - O2 concentrator; wheelchair - borrowed from friends) ADL equipment available at home: shower chair Equipment needed for discharge: none Current therapy frequency recommendation in acute: PT Therapy Frequency: 4 times a week Activity Recommendations for outside of rehab session: x1 gait belt, 2ww, hallway Precautions and Weightbearing Status: Existing Precautions/Restrictions: weight bearing Urinary catheter (external) Patient Safety Communication Prior to Visit: Nursing Right Lower Extremity : weight bearing as tolerated (s/p femur fixation (03/19/24)) JENA: CANCER MEDICINE ADMISSION H&P TODAY'S DATE: 05/18/2024 ADMIT DATE: 05/18/2024 6:40 PM REASON FOR ADMISSION: FTT, pain Primary Oncologist: Neri REYES AND PLAN Tiny Marte is a 63 y.o. female with a PMH of GERD, hypothyroidism, pleural effusions s/p right pleurx, and metastatic breast cancer who was a direct admission for c/o nausea, vomiting, pain and FTT. Past Medical History: Diagnosis Date Arthritis Breast cancer 2019 Emphysema lung GERD (gastroesophageal reflux disease) History of chemotherapy History of radiation therapy 2019 left breast Hypothyroidism Pericardial effusion Past Surgical History: Procedure Laterality Date OTHER SURGICAL Right 04/06/2024 Pleurx catheter placed TREATMENT PROPHYLACTIC FEMUR Right 03/19/2024 Laterality: Right; Surgeon: Chepe Chambers MD; Location: [facility] MAIN OR BX BONE OPEN Right 03/19/2024 Laterality: Right; Surgeon: Chepe Chambers MD; Location: [facility] MAIN OR BREAST LUMPECTOMY Left 01/25/2020 BREAST BIOPSY Right 09/14/2019 BREAST BIOPSY Left 08/31/2019 CHOLECYSTECTOMY Subjective: Pt found resting awake in bed. Just returned from MRI. Receptive to mobility encouragments Pain: General Pain Documentation (Adult, OB, Peds) Presence of Pain: reports pain/discomfort Pain Location: abdomen, right upper quadrant, hip, right, back DVPRS (Defense and Veterans Pain Rating Scale) DVPRS: Rest: 0- no pain DVPRS: Activity: 4- mild pain Home Setting Residence: House (with basement (not required)) Lives With: spouse (retired) Patient receives help from : spouse (50% assist with ADL/Lower body bathing since 03/2024 Lt femur fixation - previously Independent) Patient reported support for discharge plannin hour supervision, 24 hour physical assistance First floor setup: bedroom, walk-in shower (laundry) Second floor setup: (basement - not required) Number of stairs to enter home: 3 (Rt rail ascending) Number of stairs in home: 12 (with rail to basement) Mobility Equipment Available: 2 wheeled walker, manual wheelchair, oxygen (nocturnal 2LO2 - O2 concentrator; wheelchair - borrowed from friends) ADL Equipment Available: shower chair 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 ; 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 [employer] Previous Level of Function Gross Functional Mobility: independent (Baseline status prior to March 2024) Assistive Device: 2 wheeled walker ((in home since Mar); wheelchair in community since March; No DME of demand prior to March & active 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 in the community) Prior level ADL Overview: Independent with all ADLs Dominant Hand: Right Bed Mobility: independent Transfers: independent Stairs: independent Ambulation: independent with all needs Prior Level of Function Details: Community Objective/Observation: Vitals/Vitals Responses to Treatment: no formal active monitoring at bedside/senior stereo compiler team lead turned off on PT arrival; no overt symptoms of concern O2 Device: room air Cognition Overall Cognitive Status: Within Functional Limits Vision Screen Currently wearing corrective lenses: Yes Visual Impairments Observed?: No Speech Speech: no gross deficits noted Successful Methods (Communication Strategies): verbal speech Hearing Hearing: no gross deficits noted Extremity Assessments: RUE Assessment RUE Assessment: Within Functional Limits LUE Assessment LUE Assessment: Within Functional Limits RLE Assessment RLE Assessment: Strength Impaired Right LE Assessment Details: grossly 3-/5 MMT hip and 3/5 MMT- knee, 4/5 MMT- ankle - observed with active ROM - no formal resistance to advance rating LLE Assessment LLE Assessment: Within Functional Limits Sensation Sensation Comments: radial n. distribution numbness/tingling at Lt hand - pt reporting she was told likely carpal tunnel issues Fine Motor Coordination Additional Documentation: (intact for self-help needs; DME use with bilat transmission line engineer) Edema Edema: none noted Mobility Assessment: Supine to Sit Mobility Bay Level: Supine->Sit: stand-by assist Bed Features/Set-up: Supine->Sit: Head of bed elevated (53 degrees) Skilled Intervention/Details: Supine->Sit: EOB Sit to Supine Mobility Bay Level: Sit->Supine: not tested (Patient amenable to chair sitting of daytime at session end with initial encouragement ) Balance: Sitting Balance Static Sitting-Level of Assistance: Supervision Dynamic Sitting-Level of Assistance: Standby Skilled Rationale: Verbal cues Standing Balance Static Standing-Level of Assistance: Contact guard Dynamic Standing-Level of Assistance: Contact guard Standing-Balance Support: Gait belt, 2 wheeled walker Standing Balance Skilled Intervention/Details: standing for ambulation distance x 4-5 minutes Transfer Assessment: Sit to Stand Transfer Bay Level: Sit->Stand: contact guard assist Assistive Device: Sit->Stand: gait belt, 2 wheeled walker Skilled Rationale: Verbal cues, Hand placement Skilled Intervention/Details: Sit->Stand: EOB Stand to Sit Transfer Bay Level: Stand->Sit: contact guard assist Assistive Device: Stand->Sit: gait belt, 2 wheeled walker, armed chair Skilled Rationale: Verbal cues, Hand placement Gait/Functional Mobility: Gait Assessment Bay Level: Gait: contact guard assist (to Stand by assist) Assistive Device: Gait: gait belt, 2 wheeled walker Ambulation Distance (Feet): 200 Gait Deviations Identified: decreased elena, decreased gait speed, decreased heel strike Gait Skilled Rationale: verbal, upright posture, increase step length, proximity of assistive device (for reducing risks of progressive back pain; Pt endorsing pain is reduced from 5-6/10 with habitual practices to 4/10 with postural extension/proximity to DME coaching x 2 and patient exhibiting understanding by carryover and intermittent self-correction) Wheelchair Assessment Patient currently uses wheelchair?: No Stairs: Stairs Assessment Bay Level: Stair Negotiation: (pt defers opportunity for addressment today - discussed plan to address with future session to clear 3 steps with single Rt rail for potential DME/cane benefit) Outcome Score(s): CURRENT AM-PAC Basic Mobility Inpatient Short Form Turning over in bed: 4 - No Assistance Moving from lying on back to sittin - A Little Assistance Moving to and from bed to chair: 3 - A Little Assistance Sitting/standing from chair: 3 - A Little Assistance Walk in hospital room: 3 - A Little Assistance Climbing 3-5 steps with a railin - A Little Assistance CURRENT AM-PAC Mobility Raw Score: 19 CURRENT -[facility] Mobility Functional Limitation: 41.77% Impaired in Basic Mobility Interventions: Assessment & Plan: Patient was admitted for FTT (failure to thrive) in adult [R62.7] in the setting of metastatic breast CA with recent (03/2024) Rt femur fixation/RLE WBAT and with c/o nausea/vomiting/pain and seen for therapy evaluation related to deconditioning. The patient presents AT/NEAR recent baseline level of function with need for limited 1 person assist and DME of known use following 03/2024 surgical intervention/RLE WBAT. She is at risk for fall(s) & decline without skilled PT in the setting of impairments listed below. Due to involvement potential for multiple disciplines of rehabilitation, this pt would be a good candidate for Home with family support available and referral to Outpatient PT. Discharge plan discussed with patient/spouse, who agree(s) with above discharge plan when medically stable. Exam findings include impairments in: Strength, ROM (range of motion), Balance, Pain, Posture, Transfers, Gait/Locomotion, Aerobic capacity/endurance. These impairments contribute to functional limitations including Decreased ambulation distance/endurance, Difficulty stair climbing/descent, Increased fall risk, Limited ability to participate in Leisure/hobby pursuits, Disrupted sleep pattern, Difficulty with bed mobility, Difficulty with transfers, Decreased functional mobility, Limited standing tolerance. Current clinical presentation is Evolving - changing/inconsistent clinical characteristics (Moderate). Patient history factors impacting Plan Of Care include PMHx. Patient will benefit from skilled physical therapy to address these impairments, functional limitations, and participation restrictions and has good rehab potential to achieve therapy goals. Planned Therapy Interventions: balance training, bed mobility training, endurance, functional activity tolerance, gait training, transfer training, strengthening Patient Instruction/Education this session: Learners: Patient Education provided: Role of this discipline Teaching method: Verbal Education/Instruction Learner response: Applies knowledge Learning preferences: Auditory Learning considerations: No barriers/ready to learn Plan for next session: Progress gait tolerance, revisit stairs for home entry Acute PT Goals Notes from 05/19/2024 4:23 AM through 05/19/2024 4:23 PM Problem: PT - General Goals Goal: Sit <-> Stand Transfers - Patient will perform sit to/from stand transfers with modified independence and least restrictive to no device in order to improve functional mobility and safety. Outcome: Ongoing Goal: Standing Endurance/Balance - Patient will perform standing balance tasks for 5-10 min with modified independence and least restrictive to no device while maintaining an RPE of less than 3/10 to improve endurance and safety with standing tasks. Outcome: Ongoing Goal: Ambulation - Patient will ambulate 350-500 feet with modified independence and least restrictive to no device to improve ability to safely navigate home and community. Outcome: Ongoing Goal: Stairs - Patient will ascend/descend 1-4 stairs with modified independence, cane(prn), and single/no railing(s) to improve ability to safely navigate home and community. Outcome: Ongoing Problem: PT - Outcome Measure Goals Goal: TUG - Patient will perform the Timed Up and Go (TUG) in less than 15 seconds(no DME) to less than 20 seconds(with DME of demand) demonstrate reduced fall risk. Outcome: Ongoing PT treatment consisted of the following to progress towards the above goal(s): PT Evaluation and Treatment Time PT Evaluation (Low) Time Entry: 29 Evaluating Therapist: Alka Spence PT Additional Details: PT Co-Eval/Treatment Information Co-evaluation/co-treatment performed?: Yes, simultaneous billable skilled care was necessary due to medical complexity and functional deficits Other discipline: OT Rationale for need to co-eval/treat: postural control Eval Complexity Assessment History Components Moderate (1-2 personal factors and/or comorbidities) Examination of Body System(s) Components Moderate (Addressing a total of 3 or more elements) Clinical Presentation Stable - unchanging or predictable (Low) Clinical Decision Making Complexity (calculated) Low Time In: 1012 Time Out: 1024 Total Visit Time: 12 + 17 =29 minutes Total Treatment Time (skilled, billable minutes): 29 minutes (return to room to complete assessment - procedure interruption) 05/19/24 1107 Time In/Out Time In 1107 Time Out 1124 Total Visit Time 17 minutes Total Treatment Time (skilled, billable minutes) 17 minutes (return to room to complete assessment - procedure interruption) Initial Evaluation/Screen Completed? yes PPE used during patient interaction: gloves Patient location at end of session: chair Alarms on at end of session: chair alarm Needs in reach. Upon discontinuation of Acute Care Physical Therapy Services or patient discharge from the hospital this note represents the current Physical Therapy Discharge Summary. Physical Therapy Attempt Note 05/19/2024 PT Therapy Completed: Attempted Attempted Reason: Patient is unavailable due to test/procedure (Off unit for MRI at this time per RN/Shraddha.) Alka Spence PT Time In: 0900 Time Out: 09 Total Visit Time: 2 minutes Total Treatment Time (skilled, billable minutes): 0 minutes NUTRITION ASSESSMENT Nutrition Recommendations and Plan of Care: 1. Continue daily meal selections 2. Will provide Ensure Plus (350 kcal; 13g protein) BID and Ensure Clear (240 kcal; 8g protein) once daily with meals for additional nutrition 3. Antiemetics per primary team 4. Monitor for significant weight changes 5. RD will continue to follow Tiny Marte is a 63 y.o. female with a PMH of GERD, hypothyroidism, pleural effusions s/p right pleurx, and metastatic breast cancer who was a direct admission for c/o nausea, vomiting, pain and FTT. Received Nutrition Consult for Assessment. Past History Past Medical History: Diagnosis Date Arthritis Breast cancer 2019 Emphysema lung GERD (gastroesophageal reflux disease) History of chemotherapy History of radiation therapy 2019 left breast Hypothyroidism Pericardial effusion Past Surgical History: Procedure Laterality Date OTHER SURGICAL Right 04/06/2024 Pleurx catheter placed TREATMENT PROPHYLACTIC FEMUR Right 03/19/2024 Laterality: Right; Surgeon: Chepe Chambers MD; Location: [facility] BX BONE OPEN Right 03/19/2024 Laterality: Right; Surgeon: Chepe Chambers MD; Location: [facility] MAIN OR BREAST LUMPECTOMY Left 01/25/2020 BREAST BIOPSY Right 09/14/2019 BREAST BIOPSY Left 08/31/2019 CHOLECYSTECTOMY Nutrition History Attempted to see pt this morning. She was off unit during visit. No family in room. Admitted with nausea, vomiting x 1 week and associated poor PO intake. Will send oral supplements and follow up as soon as able. Current Diet Orders Procedures DIET REGULAR Standing Status: Standing Number of Occurrences: 1 Height/Weight Evaluation Ht: 5' 3 /160 cm Wt: 125#/56.8 kg IBW:115#/52.3 kg %IBW: 108.7% BMI: 22.19 kg/(m^2) Weight History: pt has lost 10% of her weight in the last month, which is significant. Wt Readings from Last 50 Encounters: 05/18/24 56.8 kg (125 lb 3.5 oz) 05/11/24 58.7 kg (129 lb 8 oz) 04/09/24 60.6 kg (133 lb 11.2 oz) 03/17/24 63.7 kg (140 lb 8 oz) Meds reviewed: butrans, calcitionin, lovenox, famotidine, synthroid, loratadine, olanzapine, senna, zoledronic acid Continuous: 0.9NS at 200 ml/hr Labs reviewed: WBC/Hgb/Hct/Plts: 4.38/12.3/37.7/376 (05/18 2234) Na/K+/Phos/Mg/Ca: 133/4.4/3.4/1.7/13.6 (05/18 2234) Bun/Creat/Cl/CO2/Glucose: 18/0.72/92/27/95 (05/18 2234) PE: Resp: no SOB noted GI: last BM 05/17 Skin: Randall Score: 15 Extremities: no edema NFPE: deferred - pt off unit Estimated Nutrition Needs Wt used: 56.8 kg - CBW EEN (kcal/d): 5352-5371 (25-30kcal/kg CBW) EPN (g pro/d): 68-85 (1.2-1.5g/kg CBW) EFN (ml/d): 1704 (30 ml/kg CBW) Malnutrition Statement Does the patient meet criteria for malnutrition: Unable to assess - suspect malnutrition present. Pt off unit. based on the AND/ASPEN Malnutrition Criteria 2012 Pt is currently at nutrition risk due to nausea, vomiting, metastatic breast cancer. Morena Story MS, RD, LD, CNSC Pager: [phone] documented in this encounter [facility] 06-01-2024 Hospital course Narrative Images from the original note were not included. Discharge Summary Name: Tiny Marte Age: 63 y.o. Birthday: 1960 Admit Date: 05/18/2024 6:40 PM Discharge Date: 06/01/2024 Discharge Time: 1300 Discharge Unit: [id number] Admission Information Admitting Physician: IDRIS Ireland Discharge Information Discharge Physician: Shaye Fine MD Problem List Active Hospital Problems Diagnosis FTT (failure to thrive) in adult Resolved Hospital Problems No resolved problems to display. Brief Summary of Hospital Course for Discharge Summary: Tiny Marte is a 63 y.o. female with a PMH of GERD, hypothyroidism, pleural effusions s/p right pleurx 04/06/24, and metastatic breast cancer to bone, who presented as a direct admission for c/o nausea, vomiting, pain and FTT. She had a brain MRI done 05/19 which showed numerous enhancing lesions scattered throughout the brain parenchyma, no mass effect , CTAP with progression of osseous metastases as well as new disease in liver, MRI C/T/L spine with osseous metastatic disease throughout spine, and L1 pathological fracture. NSGY evaluated and no surgical intervention recommended. Rad onc consulted, plan for fractionated SRS (3 fractions) for her brain metastases, CT simulation completed 05/20, previously planned for radiation to painful bone mets (right hip, lumbar spine), scheduled for radiation treatments 06/08-06/17/24. Hospital course was also complicated by pericardial effusion and cancer-related pain. See below for additional hospital problem list information. Subjective: On day of hospital discharge, Tiny Marte reports feeling anxious, gets up frequently. Her is at bedside and had questions about plan of care and side effects of medications. Education provided. Patient reports SOB still, has yet to drain her pleurx. Currently on 2L NC. She denies fevers/chills, chest pain, palpitations, n/v, diarrhea, or constipation. She will have follow up with [facility], cardiology, rad onc and med onc at discharge. Objective: Temp: [97.5 F (36.4 C)-97.9 F (36.6 C)] 97.8 F (36.6 C) Pulse (Heart Rate): [92-105] 105 Resp Rate: [16-20] 20 BP: (137-169)/(75-110) 139/90 O2 Sat (%): [93 %-98 %] 97 % Weight: [56.2 kg (124 lb)] 56.2 kg (124 lb) Physical exam: General: A&O to self, time, place, and situation. NAD. Anxious HEENT: EOMI, anicteric sclerae, conjunctivae & lids symmetrical. No signs of inflammation. Not STILL[place]. MMM Respiratory: No crackles/rhonchi/wheezes, no increased WOB. On 2L NC. Right PleurX catheter capped, covered with dressing which is c/d/i Cardiovascular: RRR, no murmurs, rubs, clicks or gallops, no peripheral edema noted on bilateral upper or lower extremties, cap refill brisk. Abdomen: Normoactive BS. Abdomen soft, RUQ non tender, non distended. No palpable masses. Neurologic: No focal deficits. Speech clear and coherent. Follows commands. Skin: Color, texture, and turgor normal. No rashes or lesions. Bx dressing C/D/I Psychosocial: Affect appropriate. Anxious See below for detailed hospital problem list: New Brain Mets Osseous Metastatic Disease of the Spine L1 Pathological Fracture - Admitted with persistent nausea, vomiting, fatigue, and FTT - MRI brain (05/19), with numerous enhancing lesions scattered throughout the brain parenchyma, no mass effect - CTAP showing progression of osseous metastases as well as new disease in liver - MRI C/T/L spine with osseous metastatic disease throughout spine, and L1 pathological fracture - NSGY consulted: No surgical intervention recommended - RadOnc consulted: Plan for fractionated SRS (3 fractions) for her brain metastases. CT simulation completed 05/20 Previously planned for radiation to painful bone mets (right hip, lumbar spine), will be rescheduled. Patient is scheduled for radiation treatments 06/08-06/17/24 Anxiety Hallucinations/Agitation/Restless ness Insomnia - Etiology either due to delirium or medications, or possibly due to brain mets - PPM following and changes updated on 05/31 Stop atarax, haldol Continue zyprexa 2.5 mg q6h prn and 5 mg daily at bedtime - 1st line anxiety and agitation Decreased methadone to 5 mg q12h If encephalopathy/delirium refractory to changes, consider depakote 125 mg BID Gabapentin 100/100/300 mg for anxiety/neuropathic pain - Neuro onc consulted per [facility] Recommended workup for hypoactive delirium (B12 673 , folate 12.32, TSH 0.061 low ; however. Free T4 normal at 0, copper pending, thiamine pending, UA WNL, head CT without contrast unremarkable) Head CT (05/31) with vague mineralization associated with known metastatic lesions in the frontal lobes. No significant lesion of edema or mass effect, no evidence of acute intracranial hemorrhage. Thiamine protocol started 05/31 Recommended regulating sleep wake cycles Increased Melatonin 9mg PO at bedtime PRN on 05/30 - Venous blood gas - resp acidosis with compensation Moderate Pericardial Effusion - Known hx pericardial effusion - Echo (05/28) with moderate pericardial effusion, no evidence of tamponade - Cardiology consulted: Almost certainly etiology is malignant, no urgent pericardiocentesis is needed but likely will continue to progress. Would ask thoracic surgery to see about pericardial window. 05/30 - no urgent need for a pericardiocentesis 06/01 limited TTE completed, pending. Per cards [employer], ok for pt to DC as low suspicion for worsening findings based off clinical exam, they will follow up results 1 week cards follow-up with limited TTE - Outpatient TTE to be scheduled and then cardiology appt on 06/09 - Thoracic surgery consulted: No evidence of ongoing tamponade. Cardiology following and will re-evaluate on Friday. No acute indication for pericardial window given debilitation and limited prognosis, would also appreciate pericardiocentesis and/or drain placement with fluid cytology and studies before operative intervention is considered - 06/01 day of discharge, TTE plan and cardiology follow up reviewed with pt and . Instructed to go to ER if pt becomes more tachycardia or SOB unrelieved by draining pleurx catheter. They expressed understanding Bilateral Pleural Effusions Acute on Chronic Hypoxemic Respiratory Failure - With baseline O2 2L at HS, requiring 2L continuously during admission - Etiology multifactorial, with known pleural effusions, also pericardial effusion - S/p recent R pleurx catheter placed at OSH on 04/06. 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 - CXR 05/26 with improved effusions - Discussed with IP attending, Dr. Bhakta, OK for the patient to drain up to 1L every other day for now - Walk of life test completed on 05/31 - qualified for 3L with exertion; already has home O2 arranged - Continue home pulse ox. Pt and educated on coming to ER if worsening SOB or tachycardia Anemia - With Hgb ~9-10 during admission, then acute drop to 8.8 on 05/29 - Likely partially chemo related, did have liver biopsy 05/27 - Repeat Hgb 8.4 on 05/31; no signs of bleeding RLE Edema : improved - Noted 05/27, unclear etiology - 05/28 RLE duplex neg Nausea / Vomiting FTT - Admitted with persistent nausea/vomiting and fatigue. Possibly 2/2 brain mets, hypercalcemia, also possibly infection with UTI - CXR unremarkable for acute process - UA unremarkable - PPM following/recs: Stop haldol Continue olanzapine to 5mg at bedtime Continue zofran to 4mg PO/IV q4h PRN 2nd line Avoid phenergan given concern for sedation w/ anticholinergic meds Cancer Related Pain - Pain to right side into right back and now left side, hips, legs. Relted to metastatic disease - Follows with PPM outpatient - PPM consulted: Reduced Methadone 5mg PO conc liquid Q12hr on 05/31. (05/26 QTc 408) Continue PO oxycodone 5-10mg q4h PRN - changed to tablet form Continue lidocaine patches over chest wall for MSK discomfort Add ibuprofen 400 mg q6h prn mild/moderate pain APAP PRN Opioid Induced Constipation : resolved - Continue scheduled Senna and Miralax BID ; LBM 05/31 - Patient's confirmed has laxatives at home for use Metastatic Breast Cancer to bone, liver - Follows with Dr. He; next appt 06/11. Updated him by email today 06/01 - S/p fixation and then radiation to right femur - Current tx: faslodex (C1D1 05/12) and ribociclib. Planning to switch to abemaciclib OP - Dr He notified 05/19 of results of MRIB and CT on admission, showing worsening metastatic disease. Recommended liver biopsy - IR consulted: s/p liver biopsy 05/27, path confirming metastatic carcinoma of breast origin. Updated pt and of these results Hyponatremia - Secondary to fluid shifts. Monitor. Encourage intake of protein shakes/ensures . Malnutrition - Moderate Protein-Calorie Malnutrition (POA) (05/27/2024 9:00 AM) secondary to Chronic Illness (05/27/2024 9:00 AM) - Reviewed and agree with industrial registered nurse's recommendations. RESOLVED PROBLEMS UTI - Urine culture positive for mixed microbes, s/p ceftriaxone (05/20-05/22). - Repeat urine cx (05/26): no growth Hypercalcemia of Malignancy - With Ca 13.6, albumin 3.6 on admission. - S/p zometa and calcitonin x1 on 05/19. S/p MVF, off since 05/21 - PTH intact low at 9 and vit d 40.8. PTHrp hemolyzed - Calcium now stable CHRONIC PROBLEMS Hypothyroidism - cont home levothyroxine GERD - cont home pepcid Brief Summary of Consults for Discharge Summary: IP CONSULT TO PALLIATIVE MEDICINE IP CONSULT TO RADIATION ONCOLOGY IP CONSULT TO INTERVENTIONAL RADIOLOGY IP CONSULT TO SURGERY - NEURO IP CONSULT TO CARDIOLOGY IP CONSULT TO SURGERY - THORACIC IP CONSULT TO NEURO / ONCOLOGY IP CONSULT TO PHYSICAL THERAPY IP CONSULT TO OCCUPATIONAL THERAPY IP CONSULT TO NUTRITION IP CONSULT TO PERIPHERAL IV TEAM IP CONSULT TO PERIPHERAL IV TEAM IP CONSULT TO PICC TEAM Brief Summary of Procedures and Imaging for Discharge Summary: ECHOCARDIOGRAM LIMITED/FOLLOWUP CT HEAD WITHOUT CONTRAST Final Result IMPRESSION: 1. Vague mineralization associated with known metastatic lesions in the frontal lobes. 2. No significant lesion of edema or mass effect, no evidence of acute intracranial hemorrhage. DUPLEX VENOUS EXTREMITY LOWER RIGHT Final Result ECHOCARDIOGRAM LIMITED/FOLLOWUP Final Result US PERCUTANEOUS LIVER BIOPSY Final Result IMPRESSION: Successful ultrasound-guided biopsy of a left hepatic lobe lesion. Patel Jaramillo MD was in the room and participated during all yarbrough portions of this procedure. I personally viewed and interpreted these images and I have reviewed and approved this report. CHEST 1 VIEW PORTABLE Final Result IMPRESSION: Mild decrease in size of moderate right pleural effusion. No new acute process. SPINE THORACIC WITH AND WITHOUT CONTRAST Final Result IMPRESSION: Osseous metastatic disease throughout the thoracic spine, as described above. Lesion involving the right C3 vertebral body extending into the posterior elements with mild extraosseous extension of tumor into the right ventral and right lateral epidural space (Bilsky grade 1a). Suspected minimal ventral right epidural tumor at T1. No pathologic fractures. No significant thoracic canal stenosis or cord compression. SPINE LUMBAR WITH AND WITHOUT CONTRAST Final Result IMPRESSION: Interval progression of osseous metastatic disease compared to the previous MRI from March 18, 2024, as described above. New pathologic mild inferior endplate compression fracture at L1. Similar probably pathologic superior endplate compression fracture at L5 on the left. Minimal extraosseous extension of tumor into the ventral left epidural space at L5 (Bilsky grade 1a). No significant lumbar canal stenosis or cauda equina compression. SPINE CERVICAL WITH AND WITHOUT CONTRAST Final Result IMPRESSION: Osseous metastatic disease involving the cervical spine and clivus, as described above. Mild extraosseous extension of tumor into the ventral left and left lateral epidural space at C7 (Bilsky grade 1b) which also extends into the left C6-C7 neural foramen. No other areas of significant epidural tumor. No pathologic vertebral compression fractures. No significant cervical canal stenosis or cord compression. CHEST 1 VIEW PORTABLE Final Result IMPRESSION: New moderate right pleural effusion and adjacent compressive atelectasis. Mildly enlarging small left pleural effusion. ABDOMEN/PELVIS WITH CONTRAST Final Result IMPRESSION: 1. Progressive osseous metastatic disease with multiple lytic lesions in the spine and pelvic bones. These findings have progressed since the comparison PET/CT scan. Associated prominent soft tissue components as described above. 2. Multiple hepatic metastatic lesions. Disease in the liver is likely new since the prior CT. 3. Bilateral adrenal nodules, right larger than left, suggestive of adrenal metastases. 4. Loculated right pleural effusion with a pleural drain in place. Nodular enhancing right pleural metastases are also noted. BRAIN WITH AND WITHOUT CONTRAST Final Result IMPRESSION: 1. Numerous enhancing lesions scattered throughout the brain parenchyma, compatible with intracranial metastatic disease. No significant mass effect. No intracranial hemorrhage. 2. Dural thickening enhancement along both sides of the falx, concerning for possible dural metastases. 3. Patchy areas of abnormal marrow signal within the calvarium, concerning for osseous metastatic disease. 4. Prominent pituitary gland with a small 5 mm hypoenhancing focus within the right aspect of the pituitary gland. CHEST 1 VIEW PORTABLE Final Result IMPRESSION: Decreased right pleural effusion with improvement of right lower lung atelectasis. Small left pleural effusion. Lucency in the right second rib. This could be assessed with bone scan. I personally viewed and interpreted these images and I have reviewed and approved this report. SPINE SCOLIOSIS 2-3 VIEWS (Results Pending) ECHOCARDIOGRAM (Results Pending) ECHOCARDIOGRAM (Results Pending) Summary of last selected lab results and date obtained: Lab Results Component Value Date WBC 7.93 06/01/2024 HGB 9.6 (L) 06/01/2024 HCT 30.1 (L) 06/01/2024 PLATELET 369 06/01/2024 MCV 90.4 06/01/2024 Lab Results Component Value Date SODIUM 127 (L) 06/01/2024 POTASSIUM 4.2 06/01/2024 CHLORIDE 90 (L) 06/01/2024 CO2 29 06/01/2024 BUN 9 06/01/2024 CREATSERUM 0.42 (L) 06/01/2024 GLUCOSE 107 (H) 06/01/2024 Lab Results Component Value Date ALT 22 05/31/2024 AST 31 05/31/2024 ALKPHOS 311 (H) 05/31/2024 BILITOTAL 0.3 05/31/2024 BILIDIRECT <0.1 05/31/2024 Brief Summary of Labs for Discharge Summary: Discharge Orders OXYGEN FOR HOME XR SPINE SCOLIOSIS 2-3 VIEWS AMB REFERRAL TO INTERVENTIONAL RADIOLOGY AMB REFERRAL TO CARDIOVASCULAR MEDICINE AMB REFERRAL TO ONCOLOGY DISCHARGE FOLLOW-UP CLINIC ECHOCARDIOGRAM ECHOCARDIOGRAM TRANSTHORACIC Current Outpatient Meds: Medication List for when you go home START taking these medications Morning Afternoon Evening Bedtime As Needed Acetaminophen 325 MG tablet Take 2 tablets by mouth every 6 hours as needed for Mild Pain. Commonly known as: TYLENOL Last time this was given: 650 mg on May 27, 2024 8:05 AM * Gabapentin 300 MG CAPS Take 1 capsule by mouth at bedtime. Commonly known as: NEURONTIN Last time this was given: Ask your nurse or doctor * Gabapentin 100 MG CAPS Take 1 capsule by mouth 2 times daily. Commonly known as: NEURONTIN Last time this was given: Ask your nurse or doctor Methadone 10 MG/ML CONC oral concentrate Take 0.5 mL by mouth every 12 hours. Commonly known as: DOLOPHINE For diagnoses: Palliative care by specialist, Cancer associated pain Last time this was given: 5 mg on May 31, 2024 8:46 PM naloxone 4 MG/0.1ML [place] 1 spray into nostril as directed for suspected opioid overdose and call 911. If no response in 2 minutes use a new nasal spray in other nostril. Repeat until help arrives. Commonly known as: NARCAN Ondansetron 4 MG TABS Take 1 tablet by mouth every 4 hours as needed for Nausea / Vomiting. Commonly known as: ZOFRAN Sennosides 17.2 MG TABS Take 1 tablet by mouth every 12 hours. Commonly known as: SENOKOT Last time this was given: 17.2 mg on May 30, 2024 8:13 AM * The same medication is listed twice. Please discuss with your provider. CHANGE how you take these medications Morning Afternoon Evening Bedtime As Needed * OLANZapine 2.5 MG TABS Take 2 tablets by mouth at bedtime for 7 days. Commonly known as: ZyPREXA What changed: The quantity you have reported taking of this medication has changed Last time this was given: Ask your nurse or doctor * OLANZapine 5 MG TABS Take 1 tablet by mouth at bedtime. Commonly known as: zyPREXA What changed: You were already taking a medication with the same name, and this prescription was added. Make sure you understand how and when to take each. Last time this was given: Ask your nurse or doctor Start taking on: June 07, 2024 oxyCODONE HCl 10 MG TABS Take 0.5-1 tablets by mouth every 4 hours as needed for up to 21 days. Commonly known as: ROXICODONE For diagnoses: Palliative care by specialist, Cancer associated pain What changed: The strength you have reported taking of this medication has changed The quantity you have reported taking of this medication has changed You should now only take this medication as needed additional instructions Last time this was given: 5 mg on June 01, 2024 5:34 AM * The same medication is listed twice. Please discuss with your provider. CONTINUE taking these medications Morning Afternoon Evening Bedtime As Needed anastrozole 1 MG tablet Take 1 tablet by mouth Daily (with dinner). Commonly known as: ARIMIDEX benzonatate 100 MG CAPS Take 1-2 capsules by mouth 3 times daily as needed for Cough. Commonly known as: TESSALON For diagnoses: Invasive ductal carcinoma of left breast calcium carbonate 1250 (500 Ca) MG TABS Take 1,000 mg by mouth daily. Commonly known as: OS-XAVI faMOTIdine 20 MG TABS Take 1 tablet by mouth daily. Commonly known as: PEPCID Last time this was given: 20 mg on June 01, 2024 9:09 AM Fish Oil [address] Take by mouth. FULVESTRANT IM Inject intramuscularly. ibuprofen 800 MG TABS Take 1 tablet by mouth Every 8 hours as needed. Commonly known as: MOTRIN Last time this was given: 400 mg on June 01, 2024 5:24 AM Kisqali (600 MG Dose) Take three 200 mg tablets (600 mg) by mouth once daily on days 1 through 21 of a 28 day cycle. 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 HE. Levothyroxine 75 MCG TABS Take 1 tablet by mouth. Commonly known as: SYNTHROID Last time this was given: 75 mcg on June 01, 2024 5:05 AM Loratadine 10 MG TABS Take by mouth. Commonly known as: CLARITIN Last time this was given: 10 mg on June 01, 2024 9:09 AM MAGNESIUM PO Take 420 mg by mouth daily. Last time this was given: Ask your nurse or doctor OCUVITE-LUTEIN PO Take by mouth. Polyethylene glycol 17 g PACK packet Take 1 packet by mouth daily. Commonly known as: MIRALAX Last time this was given: 8.5 g on May 31, 2024 12:56 PM Prolia 60 MG/ML SOSY injection Inject 1 mL under the skin. Generic drug: denosumab Vitamin D3 125 MCG (5000 UT) per tablet Take 3 tablets by mouth. Commonly known as: VITAMIN D3 STOP taking these medications Buprenorphine 5 MCG/HR PTWK 5 mcg/hr patch Commonly known as: Butrans Cyclobenzaprine 5 MG TABS Commonly known as: FLEXERIL Enoxaparin Sodium 40 MG/0.4ML injection Commonly known as: LOVENOX Prochlorperazine 10 MG TABS Commonly known as: COMPAZINE Medication Instructions: Know your medications, what they are used for, side effects, dosages and times to take. Use a medication record. Medications may be costly, please your physician or healthcare provider know if you are having financial difficulty. Please bring your medications to your first follow up appointment. Follow-up: Curtis Aguirre, BODY FITTER [address] [facility] [address] Follow up Norah Coronel MD [address] [facility] 3rd Floor [facility] [id number] Follow up Carlos He MD [address] [facility] 4th [address], [address] [facility] [address] [facility] Contact Info Location [address] [place] [address], [id number] Follow up This is your oxygen company Upcoming Appointments (up to five)-Some appointments for Medical Center outpatient clinics or diagnostic testing locations are not displayed below Next 5 Appointments Provider Department Dept Phone 06/08/2024 2:00 PM Mal Martinez; [facility] [address], [facility] Department of Radiation Oncology Arrive at: Arrive to Ground Floor Registration [phone] 06/08/2024 2:30 PM Mal Martinez; [facility], [facility] Department of Radiation Oncology Arrive at: Arrive to Ground Floor Registration [phone] 06/09/2024 2:00 PM [facility], [facility] Heart and Vascular Outpatient Care [place] Arrive at: Arrive to 1st Floor Registration [phone] 06/09/2024 3:40 PM [facility], [facility] Department of Radiation Oncology Arrive at: Arrive to Ground Floor Registration [phone] 06/10/2024 5:20 PM [facility] [address], [facility] Department of Radiation Oncology Arrive at: Arrive to Ground Floor Registration [phone] Displaying the next 5 appointments. This patient has additional appointments scheduled. Associated attestation - Shaye Fine MD - 06/01/2024 3:35 PM EST I have seen and examined the patient on their discharge day 06/01/24. I have reviewed, edited where necessary, and agree with the above discharge summary. 45 minutes were personally spent on discharge planning on the day of discharge in coordination of care, counseling the patient, and preparation of discharge and transfer paperwork. I personally performed all aspects of the medical decision making for this encounter. Exam Pt fidgety and anxious Heart- RRR no murmur or gallop Lungs- CTA aamir No focal neuro deficits. DC Summary: Tiny Marte is a 63 y.o. female with a PMH of GERD, hypothyroidism, pleural effusions s/p right pleurx 04/06/24, and metastatic breast cancer to bone, who presented as a direct admission for c/o nausea, vomiting, pain and FTT. Brain mets Osseous mets of the spine L1 pathologic fracture No surgical intervention recommended per NS Rad/Onc plan for SRS; CT sim'ed on 05/20/24 Plan for RT from 06/08/24- 06/17/24. Anxiety Hallucination PPM discontinued Atarax; started Zyprexa on 05/30/24 as the first line anxiety. Increased Melatonin 9 mg at bedtime on 05/30/24. Haldol Dc'ed. Cancer related pain PPM decreased Methadone; continue Neurontin and Oxy prn. Moderate pericardial effusion No evidence of tamponade per TTE on 05/28/24 No plan for pericardiocentesis. Repeat TTE on 06/01/24 showed R atrium collapsed and moderate pericardial effusion; discussed with Cardio attending on 06/01; repeat TTE on 06/09/24; ok to DC home from cardiac standpoint. Acute on chronic respiratory failure Bilateral pleural effusion S/p R pleurX cath placement on 04/06/24; drain up to 1L every other day. Requiring continuous 2L nc O2; previously on 2 L at night. Metastatic Breast Cancer Follows with Dr. He H/o bone mets, s/p ORIF of the R femur S/p liver BX on 05/27/24- pending Currently on Faslodex and Ribociclib but plan to switch to Abemaciclib. Disposition;Home Expectant DC; 06/01/24 documented in this encounter [facility] 06-01-2024 Miscellaneous Notes Summary: PCRM discharge note [facility] Inpatient PCRM Discharge Note Patient discussed in medical rounds for discharge to home. PCRM met with the patient/family/spouse to discuss final discharge plan. Services for Discharge No agencies picked up patient Consults with Final Discharge Recommendations OP appts made Lines/Tubes/Drains/Wounds/Supplie s PIV to be removed at discharge Medications No barriers anticipated in obtaining discharge medications. No prior authorizations anticipated. Reconciliation of medications to be completed by the medical team. [id number] [place] [address] - [id number] [facility] [phone] Medications are not processed yet for cost OP [facility] [employer] for the Methadone $0.00 Narcan bedside teaching Project [employer] for oxygen patient is already established Choice Was Patient Choice Provided: YES Transportation Transportation will be provided by . Education Discharge education provided by the medical team and updated in the After Visit Summary. Follow Up(s) Any follow up requested by the medical team arranged. Appointments in the After Visit Summary. Scheduled Appointment(s) Doctor/ Clinic: Dr. He/lab Date: 06/11/24 Time: 2:20pm Arrival Time: 2:20pm Doctor/ Clinic: Dr. He Date: 06/11/24 Time: 3:00pm Arrival Time: 2:45pm ACO Patient: No Was Ambulatory PCRM added to the Care Team? No- Handoff criteria not met Was a handoff made to an Ambulatory PCRM? No The PCRM has updated the patient's nurse regarding the final discharge plan. Risk of Readmission: 12.1 Category Reference: Low: 0% - 5% Medium - Low: 5.1% - 10% Medium - High: 10.1% - 16% High: 16.1% - 100% Readmission Risk Interventions Documented: Yes No other discharge needs have been identified at this time. This plan was developed in collaboration with the patient and caregiver/preferred decision maker. Patient and family are in agreement with final discharge plan. Please refer to AVS and medical record for additional information. Patient instructed to call with questions. PCRM will continue to follow with medical team for any additional discharge planning needs. Thais ORTEGA, [facility]- Patient Care Green Building Architect [phone] Friday-Friday 8am - 4:30pm If any changes to this individualized plan of care during evening and weekend hours and assistance is needed, please page the retail client solutions consultant PCRM at [phone]. Overnight Calls: cross- coverage: Nocturnal team overnight coverage. Following issues: sleep aid RN message: pt requesting melatonin Previous Progress Notes and/or H&P Reviewed. yes Orders placed: yes, melatonin 6 mg Q HS d/w bedside RN SHEKHAR Guillen Nocturnal Inpatient ISHA Pager [phone] Home Oxygen Qualification Test: Pt oxygen saturation at rest on room air is:95% Pt oxygen saturation with exertion on room air is: 85% Placed 2L oxygen via nasal cannula on patient with walking. Oxygen saturation improved to: 88%. Placed on 3L oxygen via nasal cannula on patient with walking. Oxygen saturation improved to 93% Problem: PT - General Goals Goal: Sit <-> Stand Transfers - Patient will perform sit to/from stand transfers with modified independence and least restrictive to no device in order to improve functional mobility and safety. Outcome: Ongoing Goal: Standing Endurance/Balance - Patient will perform standing balance tasks for 5-10 min with modified independence and least restrictive to no device while maintaining an RPE of less than 3/10 to improve endurance and safety with standing tasks. Outcome: Ongoing Goal: Ambulation - Patient will ambulate 350-500 feet with modified independence and least restrictive to no device to improve ability to safely navigate home and community. Outcome: Ongoing Contacted by primary team regarding uncontrolled anxiety and insomnia. Bedside RN reported patient complaining of SOB that she attributed to anxiety. O2 sat 97%. Patient reportedly with some baseline anxiety, worsened over the last several days and interfering with ability to sleep. Recommended adding Gabapentin 100/100/300 mg for anxiety and uncontrolled neuropathic pain. Ramelteon added for insomnia. Staffed with retail client solutions consultant attending, Dr. Jones. Problem: Adult Inpatient Plan of Care Goal: Plan of Care Review Outcome: Progressing Problem: Adult Inpatient Plan of Care Goal: Patient-Specific Goal (Individualized) Outcome: Progressing Problem: Adult Inpatient Plan of Care Goal: Absence of Hospital-Acquired Illness or Injury Outcome: Progressing Problem: Oral Intake Inadequate Goal: Improved Oral Intake Outcome: Progressing Second assessment complete as per policy. No change from morning assessment unless otherwise documented. Bed in low position. Call light in reach. All needs met. Thoracic Surgery Updated Plan of Care Patient with metastatic breast cancer to brain, bone, lung, and malignant pleural effusion s/p right pleurX catheter. Also with chronic pericardial effusion presumably malignant in nature as well. Thoracic surgery was consulted for pericardial effusion and consideration of pericardial window. No evidence of ongoing tamponade. Cardiology following and will re-evaluate on Friday. No acute indication for pericardial window given debilitation and limited prognosis, would also appreciate pericardiocentesis and/or drain placement with fluid cytology and studies before operative intervention is considered. Patient case and imaging reviewed with attending surgeon Dr. Ku. Thoracic surgery will sign off at this time. Please do not hesitate to reach out if new questions or concerns arise. Please identify the Thoracic Surgery consult resident retail client solutions consultant via [employer] (formerly [employer]). The typewriter aligner of this note may not be the resident retail client solutions consultant or available for immediate responses. Thank you for allowing us to participate in the excellent care of this patient. Ed Lopez MD Cardiothoracic Surgery PGY-2 #[id number] Patient voiced she was having thoughts she knows weren t true. Her kids school calling to tell her they were sick, they are in their 40s and thinking her name was Riki from [employer]. Physician notified Patient reassessed - no changes from previously documented nursing assessment unless otherwise noted in the flowsheet. Problem: Adult Inpatient Plan of Care Goal: Plan of Care Review Outcome: Progressing Goal: Patient-Specific Goal (Individualized) Outcome: Progressing Goal: Absence of Hospital-Acquired Illness or Injury Outcome: Progressing Goal: Optimal Comfort and Wellbeing Outcome: Progressing Goal: Readiness for Transition of Care Outcome: Progressing Problem: Oral Intake Inadequate Goal: Improved Oral Intake Outcome: Progressing Problem: Pain Acute Goal: Optimal Pain Control and Function Outcome: Progressing Problem: Fall Injury Risk Goal: Fall/Trauma/Injury Risk: Absence of Trauma/Injury/Falls Description: Patient will demonstrate the desired outcomes. Outcome: Progressing Problem: Adult Inpatient Plan of Care Goal: Plan of Care Review Outcome: Progressing Goal: Patient-Specific Goal (Individualized) Outcome: Progressing Goal: Absence of Hospital-Acquired Illness or Injury Outcome: Progressing Goal: Optimal Comfort and Wellbeing Outcome: Progressing Goal: Readiness for Transition of Care Outcome: Progressing Problem: Oral Intake Inadequate Goal: Improved Oral Intake Outcome: Progressing Problem: OT - ADLs Goal: Lower Body Dressing - Patient will complete lower body dressing tasks with supervision using adaptive equipment/compensatory strategies as needed for improved ability to complete self-care activities. Outcome: Progressing Goal: Grooming - Patient will complete grooming in standing with modified independence for improved ability to safely complete ADLs. Outcome: Progressing Goal: Toileting - Patient will complete toileting task with modified independence and adaptive equipment as needed for improved ability to safely complete self-care activities. Outcome: Progressing Problem: OT - Balance Goal: Balance - Standing - Patient will perform 15 minutes of functional task in standing with modified independence and good balance to promote safety and improved balance required for self-care activities. Outcome: Progressing Problem: OT - Endurance Goal: Endurance Functional Mobility - Patient will complete distance needed for common household mobility with no rest breaks for improved tolerance to safely complete I/ADL's Outcome: Progressing Problem: OT - Strength/ROM Goal: Strength/ROM ADL Participation - Patient will participate in UE exercise program with modified independence to prevent deconditioning while in hospital and to max UE ROM/Coordination/strength for ADLs. Outcome: Progressing Problem: Pain Acute Goal: Optimal Pain Control and Function Outcome: Progressing Problem: Fall Injury Risk Goal: Fall/Trauma/Injury Risk: Absence of Trauma/Injury/Falls Description: Patient will demonstrate the desired outcomes. Outcome: Progressing Goal: Knowledge of risk factors/behavior modification Description: Knowledge of risk factors/behavior modification for fall/injury prevention Outcome: Progressing Problem: PT - General Goals Goal: Sit <-> Stand Transfers - Patient will perform sit to/from stand transfers with modified independence and least restrictive to no device in order to improve functional mobility and safety. Outcome: Progressing Goal: Standing Endurance/Balance - Patient will perform standing balance tasks for 5-10 min with modified independence and least restrictive to no device while maintaining an RPE of less than 3/10 to improve endurance and safety with standing tasks. Outcome: Progressing Goal: Ambulation - Patient will ambulate 350-500 feet with modified independence and least restrictive to no device to improve ability to safely navigate home and community. Outcome: Progressing Goal: Stairs - Patient will ascend/descend 1-4 stairs with modified independence, cane(prn), and single/no railing(s) to improve ability to safely navigate home and community. Outcome: Progressing Problem: PT - Outcome Measure Goals Goal: TUG - Patient will perform the Timed Up and Go (TUG) in less than 15 seconds(no DME) to less than 20 seconds(with DME of demand) demonstrate reduced fall risk. Outcome: Progressing Patient reassessed - no changes from previously documented nursing assessment unless otherwise noted in the flowsheet. RN will continue to monitor. Tiny has been resting in her room with her at bedside. She was very short of breath overnight and this morning however this resolved after the pleurex was drained. Patient reassessed - no changes from previously documented nursing assessment unless otherwise noted in the flowsheet. Problem: Adult Inpatient Plan of Care Goal: Plan of Care Review Outcome: Progressing Goal: Patient-Specific Goal (Individualized) Outcome: Progressing Goal: Absence of Hospital-Acquired Illness or Injury Outcome: Progressing Goal: Optimal Comfort and Wellbeing Outcome: Progressing Goal: Readiness for Transition of Care Outcome: Progressing Problem: Oral Intake Inadequate Goal: Improved Oral Intake Outcome: Progressing Problem: Pain Acute Goal: Optimal Pain Control and Function Outcome: Progressing Problem: Fall Injury Risk Goal: Fall/Trauma/Injury Risk: Absence of Trauma/Injury/Falls Description: Patient will demonstrate the desired outcomes. Outcome: Progressing Summary: PCRM discharge note 05/28/24 1602 Referral Information Arrived From home or self-care Final Discharge Planning Discharge Disposition Home CM/SW AVS Portion Completed Yes Plan Plan Patient to discharge home Patient/Family In Agreement With Plan yes Transport Request Mode of Transfer Private Vehicle Ximena Inpatient PCR Discharge Note Patient discussed in medical rounds for discharge to home. PCRM met with the patient/family/spouse to discuss final discharge plan. Services for Discharge No agencies picked up patient Consults with Final Discharge Recommendations OP appts made Lines/Tubes/Drains/Wounds/Supplie s PIV to be removed at discharge Medications No barriers anticipated in obtaining discharge medications. No prior authorizations anticipated. Reconciliation of medications to be completed by the medical team. OP Ximena Raymond Methadone Oxy $0.00 Narcan bedside teaching Project [employer]avia Durable Medical Equipment [employer] for oxygen patient is already established Choice Was Patient Choice Provided: N/A Transportation Transportation will be provided by . Education Discharge education provided by the medical team and updated in the After Visit Summary. Follow Up(s) Any follow up requested by the medical team arranged. Appointments in the After Visit Summary. ACO Patient: No Was Ambulatory PCRM added to the Care Team? No- Handoff criteria not met Was a handoff made to an Ambulatory PCRM? No The PCRM has updated the patient's nurse regarding the final discharge plan. Risk of Readmission: 12.1 Category Reference: Low: 0% - 5% Medium - Low: 5.1% - 10% Medium - High: 10.1% - 16% High: 16.1% - 100% Readmission Risk Interventions Documented: Yes No other discharge needs have been identified at this time. This plan was developed in collaboration with the patient and caregiver/preferred decision maker. Patient and family are in agreement with final discharge plan. Please refer to AVS and medical record for additional information. Patient instructed to call with questions. PCRM will continue to follow with medical team for any additional discharge planning needs. Thais ORTEGA, PCR- Patient Care Green Building Architect [phone] Friday-Friday 8am - 4:30pm If any changes to this individualized plan of care during evening and weekend hours and assistance is needed, please page the retail client solutions consultant PCRM at [phone]. Problem: Adult Inpatient Plan of Care Goal: Plan of Care Review Outcome: Progressing Goal: Patient-Specific Goal (Individualized) Outcome: Progressing Goal: Absence of Hospital-Acquired Illness or Injury Outcome: Progressing Goal: Optimal Comfort and Wellbeing Outcome: Progressing Goal: Readiness for Transition of Care Outcome: Progressing Problem: Oral Intake Inadequate Goal: Improved Oral Intake Outcome: Progressing Problem: OT - ADLs Goal: Lower Body Dressing - Patient will complete lower body dressing tasks with supervision using adaptive equipment/compensatory strategies as needed for improved ability to complete self-care activities. Outcome: Progressing Goal: Grooming - Patient will complete grooming in standing with modified independence for improved ability to safely complete ADLs. Outcome: Progressing Goal: Toileting - Patient will complete toileting task with modified independence and adaptive equipment as needed for improved ability to safely complete self-care activities. Outcome: Progressing Problem: OT - Balance Goal: Balance - Standing - Patient will perform 15 minutes of functional task in standing with modified independence and good balance to promote safety and improved balance required for self-care activities. Outcome: Progressing Problem: OT - Endurance Goal: Endurance Functional Mobility - Patient will complete distance needed for common household mobility with no rest breaks for improved tolerance to safely complete I/ADL's Outcome: Progressing Problem: OT - Strength/ROM Goal: Strength/ROM ADL Participation - Patient will participate in UE exercise program with modified independence to prevent deconditioning while in hospital and to max UE ROM/Coordination/strength for ADLs. Outcome: Progressing Problem: Pain Acute Goal: Optimal Pain Control and Function Outcome: Progressing Problem: Fall Injury Risk Goal: Fall/Trauma/Injury Risk: Absence of Trauma/Injury/Falls Description: Patient will demonstrate the desired outcomes. Outcome: Progressing Goal: Knowledge of risk factors/behavior modification Description: Knowledge of risk factors/behavior modification for fall/injury prevention Outcome: Progressing Problem: PT - General Goals Goal: Sit <-> Stand Transfers - Patient will perform sit to/from stand transfers with modified independence and least restrictive to no device in order to improve functional mobility and safety. Outcome: Progressing Goal: Standing Endurance/Balance - Patient will perform standing balance tasks for 5-10 min with modified independence and least restrictive to no device while maintaining an RPE of less than 3/10 to improve endurance and safety with standing tasks. Outcome: Progressing Goal: Ambulation - Patient will ambulate 350-500 feet with modified independence and least restrictive to no device to improve ability to safely navigate home and community. Outcome: Progressing Goal: Stairs - Patient will ascend/descend 1-4 stairs with modified independence, cane(prn), and single/no railing(s) to improve ability to safely navigate home and community. Outcome: Progressing Problem: PT - Outcome Measure Goals Goal: TUG - Patient will perform the Timed Up and Go (TUG) in less than 15 seconds(no DME) to less than 20 seconds(with DME of demand) demonstrate reduced fall risk. Outcome: Progressing Patient reassessed - no changes from previously documented nursing assessment unless otherwise noted in the flowsheet. RN will continue to monitor. Annette has been resting in bed today with her at the bedside. She continues to have moderate/severe back pain. She also has stated she has some anxiety also. She has received the prn atarax. Patient reassessed - no changes from previously documented nursing assessment unless otherwise noted in the flowsheet. Patient had worsening pain after her liver biopsy yesterday and has required frequent oral and IV pain medications. RN will continue to monitor. Problem: Adult Inpatient Plan of Care Goal: Plan of Care Review Outcome: Progressing Goal: Patient-Specific Goal (Individualized) Outcome: Progressing Goal: Absence of Hospital-Acquired Illness or Injury Outcome: Progressing Goal: Optimal Comfort and Wellbeing Outcome: Progressing Goal: Readiness for Transition of Care Outcome: Progressing Problem: Oral Intake Inadequate Goal: Improved Oral Intake Outcome: Progressing Problem: Pain Acute Goal: Optimal Pain Control and Function Outcome: Progressing Messaged Cancer Medicine G: Can she get her buprenex 20 minutes early? She had a liver biopsy today and is in a lot of pain. Per Cancer Medicine G, okay to give early. 1513: Patient arrives in [facility] Phase 2 Interventional Radiology from Interventional Radiology Procedure Suite with side rails up x2 with HOB >30 degrees, accompanied by IR Nurse. Patient placed on monitors, VSS. Patient assessed, see assessment. 1520: Patient restless and in 10/[address] Jaramillo at bedside. 1524: 10mg oxy administered. Patient usual dose of methadone requested from pharmacy per Dr. Jaramillo. 1609: 5mg methadone administered. 1630: Patient is still having 9/[address] Jaramillo is aware and doesn't think pain is related to a complication from the biopsy. Dr. Jaramillo is okay with sending her back to her inpatient room. Interventional Radiology procedure completed with IR Attending Clint of ultrasound guided liver biopsy. Samples obtained intra-procedure and sent to lab for analysis. [facility] monitoring to include vitals frequency and bedrest for 2 hours post biopsy. See post procedure orders for nursing care. Needle out/ gel foam out: 1504 Needle pass # 4 Pt states history of chemotherapy October 2020 and radiation approximately 10-12 days ago. Pt denies hx of seizure or stroke activity. Pt states l. Arm precautions r/t hx of lymph node removal. Pt states internal metal ivan in r. Femur. Pt denies hx of implants. Kaushal Watts RN Problem: Oral Intake Inadequate Goal: Improved Oral Intake Outcome: Progressing NUTRITION FOLLOW UP Nutrition Recommendations and Plan of Care: 1. Continue daily meal selections 2. Will provide chocolate Ensure Plus (350 kcal; 13g protein) BID with meals for additional nutrition 3. Antiemetics per primary team 4. Please continue to document % PO intake as best as able 5. Monitor for significant weight changes 6. RD will continue to follow Tiny Marte is a 63 y.o. female with a PMH of GERD, hypothyroidism, pleural effusions s/p right pleurx, and metastatic breast cancer who was a direct admission for c/o nausea, vomiting, pain and FTT. Pt seen this morning. She reports about 3 weeks of diminished appetite and PO intake. Had been doing well prior. Admitted with nausea, vomiting. Improved on antiemetic regimen. She has been eating some but not as much as baseline. Trying. She is drinking Ensure though she typically prefers Boost. Encouraged small / frequent meals of foods high in calories and protein. Provided examples. She reported understanding. She is NPO today for liver biopsy. % PO Intakes per flowsheets: Breakfast Lunch Dinner 05/26 25% 50% + ensure -- 05/25 75% + ensure 50% + ensure 25% 05/24 yogurt 25% -- 05/24 -- -- -- 05/22 50% 50% 50% Current Diet Orders Procedures DIET NPO with meds Liver biopsy Standing Status: Standing Number of Occurrences: 1 Order Specific Question: NPO Meds: Answer: with meds Ht: 5' 3 /160 cm CBW: 127#/57.9 kg Admit Wt: 125#/56.8 kg BMI: 22.19 kg/(m^2) IBW: 115#/52.3 kg Weight history: pt has lost ~10% of her weight in the last 3 months, which is significant. Wt Readings from Last 50 Encounters: 05/26/24 57.9 kg (127 lb 11.2 oz) 05/11/24 58.5 kg (129 lb) 04/14/24 61 kg (134 lb 8 oz) 04/09/24 60.6 kg (133 lb 11.2 oz) 03/17/24 63.7 kg (140 lb 8 oz) Meds reviewed: synthroid, claritin, melatonin, methadone, olanzapine, pantoprazole, miralax, senna Labs reviewed: WBC/Hgb/Hct/Plts: 5.11/10.0/31.2/474 (05/27 36) Na/K+/Phos/Mg/Ca: 131/3.9/2.7/2.0/-- (05/27 36) Bun/Creat/Cl/CO2/Glucose: 6/0.36/98/28/95 (05/27 36) GI: last BM 05/25 Skin: Randall Score: 20 Extremities: no edema Nutrition Focused Physical Exam Subcutaneous Fat Loss: Orbital Region (Orbital Fat Pads): mild Cheek Region (Buccal Fat Pads): WDL Upper Arm Region (Triceps): mild Thoracic and Lumbar Region (Ribs, Lower Back, Midaxillary Line): deferred Muscle Wasting: Methodist Region (Temporalis Muscle): mild Clavicle Bone Region (Pectoralis Major, Trapezius Muscles): moderate Shoulder and Acromion Process Region (Deltoid Muscle): moderate Dorsal Hand (Interosseous Muscle): mild Scapular Bone Region (Trapezius, Supraspinatus, Infraspinatus Muscles): mild Anterior Thigh and Patellar Region (Quadriceps Muscles): mild Posterior Calf Region (Gastrocnemius Muscle): mild Estimated Nutrition Needs Wt used: 56.8 kg - admit wt EEN (kcal/d): 7901-9559 (25-30kcal/kg admit wt) EPN (g pro/d): 68-85 (1.2-1.5g/kg admit wt) EFN (ml/d): 1704 (30 ml/kg admit wt) Malnutrition Statement Does the patient meet criteria for malnutrition: Yes Etiology of Malnutrition: Chronic Illness Malnutrition Severity: Moderate Protein-Calorie Malnutrition (POA) Energy intake: Less than 75% energy intake compared to estimated energy needs for greater than or equal to 1 month Weight Loss: > 7.5% in 3 months Subcutaneous Fat Loss: Mild Muscle Mass Loss: Moderate based on the AND/ASPEN Malnutrition Criteria 2012 Morena Story MS, RD, LD, CNSC Pager: [phone] NEUROSURGERY PLAN OF CARE NOTE: 05/27/24 Imaging reviewed without evidence of operative lesion, therefore, no surgical intervention at this time - our team will sign off, please page back with any questions Sancho Briscoe MD Attn: Dr De Leon NS1 ([phone]) Problem: PT - General Goals Goal: Sit <-> Stand Transfers - Patient will perform sit to/from stand transfers with modified independence and least restrictive to no device in order to improve functional mobility and safety. Outcome: Ongoing Goal: Ambulation - Patient will ambulate 350-500 feet with modified independence and least restrictive to no device to improve ability to safely navigate home and community. Outcome: Ongoing Patient reassessed - no changes from previously documented nursing assessment unless otherwise noted in the flowsheet. Patient continues to have pain, although improved since alternating IV with oral pain medications every few hours. RN will continue to monitor. Problem: Adult Inpatient Plan of Care Goal: Plan of Care Review Outcome: Progressing Goal: Patient-Specific Goal (Individualized) Outcome: Progressing Goal: Absence of Hospital-Acquired Illness or Injury Outcome: Progressing Goal: Optimal Comfort and Wellbeing Outcome: Progressing Goal: Readiness for Transition of Care Outcome: Progressing Problem: Pain Acute Goal: Optimal Pain Control and Function Outcome: Progressing Went to see patient due to concern about anxiety along with mild tachycardia (100s). Patient reports she is feeling anxious. She does not have shortness of breath per se, but does feel that occasionally it is difficult to take a deep breath. This is not new tonight. Mostly the patient just feels anxious making it difficult to sleep. On exam, patient is well appearing and resting comfortably. Heart is regular rate and rhythm during my exam and lungs are clear to auscultation bilaterally (though some diminished breath sounds in right lower lobe consistent with known pleural effusion). Discussed with cardiology given patient's history of malignant pericardial effusion. Lower concern this is causing the patient's symptoms given only mild vital sign abnormalities and not acute worsening of symptoms. Will order limited echo for the morning so we can assess stability of effusion. Messaged Cancer Medicine G: her BP is 148.95, she's anxious and we are waiting on atarax to come up from pharmacy. Patient had a urine culture collected, chest xray results pending, patient education on npo status completed. Patient's assessment remains unchanged from previous shift assessment except where otherwise charted in Flowsheets. Pain was well managed. Family at bedside and call light within reach. Problem: Adult Inpatient Plan of Care Goal: Plan of Care Review Outcome: Progressing Goal: Patient-Specific Goal (Individualized) Outcome: Progressing Goal: Absence of Hospital-Acquired Illness or Injury Outcome: Progressing Goal: Optimal Comfort and Wellbeing Outcome: Progressing Goal: Readiness for Transition of Care Outcome: Progressing Problem: Oral Intake Inadequate Goal: Improved Oral Intake Outcome: Progressing Problem: OT - ADLs Goal: Lower Body Dressing - Patient will complete lower body dressing tasks with supervision using adaptive equipment/compensatory strategies as needed for improved ability to complete self-care activities. Outcome: Progressing Goal: Grooming - Patient will complete grooming in standing with modified independence for improved ability to safely complete ADLs. Outcome: Progressing Goal: Toileting - Patient will complete toileting task with modified independence and adaptive equipment as needed for improved ability to safely complete self-care activities. Outcome: Progressing Patient c/o of feeling anxious. Reported to [facility]. Gave okay to give atarax earlier. Problem: Adult Inpatient Plan of Care Goal: Plan of Care Review Outcome: Progressing Goal: Patient-Specific Goal (Individualized) Outcome: Progressing Goal: Absence of Hospital-Acquired Illness or Injury Outcome: Progressing Goal: Optimal Comfort and Wellbeing Outcome: Progressing Goal: Readiness for Transition of Care Outcome: Progressing Problem: Oral Intake Inadequate Goal: Improved Oral Intake Outcome: Progressing Problem: Pain Acute Goal: Optimal Pain Control and Function Outcome: Progressing Problem: Fall Injury Risk Goal: Fall/Trauma/Injury Risk: Absence of Trauma/Injury/Falls Description: Patient will demonstrate the desired outcomes. Outcome: Progressing Goal: Knowledge of risk factors/behavior modification Description: Knowledge of risk factors/behavior modification for fall/injury prevention Outcome: Progressing Patient reassessed - no changes from previously documented nursing assessment unless otherwise noted in the flowsheet. RN will continue to monitor. Problem: Adult Inpatient Plan of Care Goal: Plan of Care Review Outcome: Progressing Goal: Patient-Specific Goal (Individualized) Outcome: Progressing Goal: Absence of Hospital-Acquired Illness or Injury Outcome: Progressing Goal: Optimal Comfort and Wellbeing Outcome: Progressing Goal: Readiness for Transition of Care Outcome: Progressing Problem: Oral Intake Inadequate Goal: Improved Oral Intake Outcome: Progressing Problem: Pain Acute Goal: Optimal Pain Control and Function Outcome: Progressing Summary: Daily Reviewed patient and plan of care in multidisciplinary rounds with medical team. Lines/tubes/Tiny Marte is a 63 y.o. female with a PMH relevant for metastatic breast CA (mets to brain, bone, lung). Admitted for management of N/V and FTT. Drains: PluerX. NC Discharge plans - Awaiting biopsy tomorrow Will engage palliative about increasing LA Butrans patch. PCRM will continue to follow with the multidisciplinary care team for ongoing assessment and collaboration of needs and discharge planning. Thais ORTEGA, PCRM- Patient Care Green Building Architect [phone] Friday-Friday 8am - 4:30pm For any case management needs on the weekend, please page the evening/weekend PCRM at [phone]. Due to lovenox being administered 05/23/24 @ 2106 the liver lesion biopsy will need to be rescheduled. Lovenox is a one dose/24 hour hold. The procedure will tentatively be rescheduled for 05/27/24. Please make patient NPO at midnight prior to the procedure Coagulation goals: Hemoglobin > 8, Platelets > 50, INR < 1.5 Blood pressure goal: 160s/90 or lower Anticoagulation, if any not listed, will need to be held per guidelines IV access required for sedation administration If the procedure is no longer needed, please update the IR charge nurse at # [phone] Tiny has continued to endorse back pain today. PPM saw her and made adjustments to pain regimen. She says she feel more alert compared to yesterday. Education provided on timing for methadone to reach steady state and the new 10 mg option for PRN oxycodone. She was able to take a shower this afternoon. Magnesium was replaced via PICC. She and her spouse deny any questions or concerns at this time. Problem: Adult Inpatient Plan of Care Goal: Plan of Care Review Outcome: Progressing Goal: Patient-Specific Goal (Individualized) Outcome: Progressing Goal: Absence of Hospital-Acquired Illness or Injury Outcome: Progressing Goal: Optimal Comfort and Wellbeing Outcome: Progressing Goal: Readiness for Transition of Care Outcome: Progressing Problem: Pain Acute Goal: Optimal Pain Control and Function Outcome: Progressing Problem: Oral Intake Inadequate Goal: Improved Oral Intake Outcome: Progressing Patient complained of pain throughout the shift, PRN pain medication given without much relief. Patient rested on and off during the shift with at bedside. Problem: Adult Inpatient Plan of Care Goal: Plan of Care Review Outcome: Progressing Goal: Patient-Specific Goal (Individualized) Outcome: Progressing Goal: Absence of Hospital-Acquired Illness or Injury Outcome: Progressing Goal: Optimal Comfort and Wellbeing Outcome: Not Progressing Goal: Readiness for Transition of Care Outcome: Progressing Problem: Oral Intake Inadequate Goal: Improved Oral Intake Outcome: Not Progressing Problem: Pain Acute Goal: Optimal Pain Control and Function Outcome: Not Progressing The patient will be an add on to the IR schedule on 05/24/24 for a liver lesion biopsy. See IR consult note. Please make patient NPO at midnight prior to the procedure Coagulation goals: Hemoglobin > 8, Platelets > 50, INR < 1.5 Blood pressure goal: 160s/90 or lower Anticoagulation, if any not listed, will need to be held per guidelines IV access required for sedation administration Summary: PCRM Continue Stay Note 05/21/24 1521 Barriers to Discharge Barriers to Discharge Complex Disposition Explanation of Barriers Medical instability, pain management, patient not eating, IV abx, IV pain managment, Medical Milestone Medical Milestones Remaining Medical stability Discharge Planning Expected Discharge Disposition Home Anticipated Services at Discharge Outpatient follow up;Outpatient clinical services (ie: lab draws, transfusions, injectables) Tiny Marte's plan of care discussed during multidisciplinary rounds, no weekend discharge anticipated. Tiny Marte is a 63 y.o. female with a PMH of GERD, hypothyroidism, pleural effusions s/p right pleurx, and metastatic breast cancer who was a direct admission for c/o nausea, vomiting, pain and FTT. ACUTE PROBLEMS Nausea, vomiting FTT Hypercalcemia of malignancy- improving ND Brain mets - c/o persistent nausea/vomiting and fatigue, worsening over past week with poor po intake Inpatient discharge barriers: Pain management, NV, IV abx Oncology provider:Carlos He Anticipated discharge needs: [facility] [place]- no agency is picking up patient PCRM will continue to follow with discharge planning needs Thais ORTEGA, PCRM- Patient Care Green Building Architect [phone] Friday-Friday 8am - 4:30pm For assistance on evenings/weekends, please page the float team at [phone]. Summary: Daily Note PCRM called Marylin for [facility] agencies- Cap Maker did not get back to PCRM. Thais ORTEGA, PCRM- Patient Care Green Building Architect [phone] Friday-Friday 8am - 4:30pm Summary: PCRM Inital 05/20/24 1523 Referral Information Arrived From home or self-care Readmission Information Was patient readmitted within 30 Days? No Information Source Information Source spouse;patient Information Source Name Tiny Marte Information Source Number See Demo Outpatient Providers Outpatient Providers Updated In IHIS Yes Contact Information Credit Risk Manager/SW Added to Care Team Yes This Child Care Centre Manager is Primary Credit Risk Manager/SW Yes Credit Risk Manager Name Thais ORTEGA PCRM Credit Risk Manager's Social Work Contact Name Becky JACKSON Hotel Service Manager's Living Environment Living Arrangement and Set Up house (1 story 3 [place]) Provides Primary Care For no one Primary Care Provided By spouse/significant other Support System Immediate family Able to Return to Prior Arrangements yes Functional Status Patient's Functional Status Prior To This Admission? Requiring Assistance Are There Status Changes This Admission? Yes Changes Observed Since Admission? No Changes Observed Concerns With Patient Being Able To Care For Themselves At Discharge? Yes Employment/Financial Employed? Retired Employment Details Job and Family Services Employment/Financial Concerns no Source Of Income pension/fpc Financial Concerns none Insurance Medical Insurance Verified Yes Prescription Coverage Yes Pharmacy updated in IHIS Yes Initial Discharge Planning Home Care Services (FOAM RUBBER MOLDER) No Home Therapies (FOAM RUBBER MOLDER) None DME (FOAM RUBBER MOLDER) Walker;Shower Chair;Oxygen (wears oxygen at night 2L [employer]) Medical Supplies (FOAM RUBBER MOLDER) PICC;Other (comment) (Pleural Cath [facility]) Patient Goal for Discharge Get better Expected Discharge Disposition HH Anticipated Services at Discharge Outpatient follow up Anticipated Changes Related to Illness none Current Discharge Risk chronically ill Transportation Available family or friend will provide Home Care Services (FOAM RUBBER MOLDER) Additional Home Care Services (FOAM RUBBER MOLDER) no Assessment/Concerns to be Addressed Concerns To Be Addressed no discharge needs identified PCRM Initial Assessment Met with patient at bedside to complete the initial assessment. Explained role and function of PCRM in multidisciplinary team. Contact number provided for questions. Demographic information reviewed with patient/family and confirmed as correct. Reason for Admission: FTT Estimated length of stay: TBD Advance directives Patient does not have Advanced Directives on File Lines/Drains/Tubes PIV Initial PCRM Discharge Planning To discharge home with potential hhc. Patient is enroled in Medicare for Jun 02 2024 Final plan will be determined closer to discharge, pending therapy and medical team recommendations. Patient/family verbalized understanding and agreement with the plan of care. Patient/family have no questions at this time. PCRM will continue to follow patient with multidisciplinary team for ongoing assessment of needs and for discharge planning. Medical team updated. Thais ORTEGA, PCRM- Patient Care Green Building Architect [phone] Friday-Friday 8am - 4:30pm Summary: PCRM inital 05/20/24 1523 Referral Information Arrived From home or self-care Readmission Information Was patient readmitted within 30 Days? No Information Source Information Source spouse;patient Information Source Name Tiny Marte Information Source Number See Demo Outpatient Providers Outpatient Providers Updated In IHIS Yes Contact Information Credit Risk Manager/SW Added to Care Team Yes This Child Care Centre Manager is Primary Credit Risk Manager/SW Yes Credit Risk Manager Name Thais TOLBERT Credit Risk Manager's Social Work Contact Name Becky JACKSON Hotel Service Manager's Living Environment Living Arrangement and Set Up house (1 story 3 [place]) Provides Primary Care For no one Primary Care Provided By spouse/significant other Support System Immediate family Able to Return to Prior Arrangements yes Functional Status Patient's Functional Status Prior To This Admission? Requiring Assistance Are There Status Changes This Admission? Yes Changes Observed Since Admission? No Changes Observed Concerns With Patient Being Able To Care For Themselves At Discharge? Yes Employment/Financial Employed? Retired Employment Details Job and Family Services Employment/Financial Concerns no Source Of Income pension/fpc Financial Concerns none Insurance Medical Insurance Verified Yes Prescription Coverage Yes Pharmacy updated in IHIS Yes Initial Discharge Planning Home Care Services (FOAM RUBBER MOLDER) No Home Therapies (FOAM RUBBER MOLDER) None DME (FOAM RUBBER MOLDER) Walker;Shower Chair;Oxygen (wears oxygen at night 2L [facility]) Medical Supplies (FOAM RUBBER MOLDER) PICC;Other (comment) (Pleural Cath [facility]) Patient Goal for Discharge Get better Expected Discharge Disposition HH Anticipated Services at Discharge Outpatient follow up Anticipated Changes Related to Illness none Current Discharge Risk chronically ill Transportation Available family or friend will provide Home Care Services (FOAM RUBBER MOLDER) Additional Home Care Services (FOAM RUBBER MOLDER) no Assessment/Concerns to be Addressed Concerns To Be Addressed no discharge needs identified PCRM Initial Assessment Met with patient at bedside to complete the initial assessment. Explained role and function of PCRM in multidisciplinary team. Contact number provided for questions. Demographic information reviewed with patient/family and confirmed as correct. Reason for Admission: FTT Estimated length of stay: TBD pending hospital course Advance directives Patient does not have Advanced Directives on File Lines/Drains/Tubes PICC Initial PCRM Discharge Planning Patient uses [employer] for oxygen needs Chest tube- [facility] supplier- patient has adequate supplies Final plan will be determined closer to discharge, pending therapy and medical team recommendations. Patient/family verbalized understanding and agreement with the plan of care. Patient/family have no questions at this time. PCRM will continue to follow patient with multidisciplinary team for ongoing assessment of needs and for discharge planning. Medical team updated. TOMASZ Plascencia RN- Patient Care Green Building Architect [phone] Friday-Friday 8am - 4:30pm Summary: Prior Auth Tiny Marte (Yarbrough: [id number]) - [id number] Buprenorphine 10MCG/HR weekly patches status: Question Response Created: May 20, 2024 Thais ORTEGA, [facility]- Patient Care Green Building Architect [phone] Friday-Friday 8am - 4:30pm Problem: Adult Inpatient Plan of Care Goal: Plan of Care Review Outcome: Progressing RADIATION ONCOLOGY INPATIENT CONSULTATION NOTE 05/19/2024 Reason for Consult: breast cancer, new brain mets Assessment and Plan: Tiny Marte is a 63 y.o. 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 She underwent right femur fixation and open biopsy on 03/19/2024 and recently completed post-op RT to right femur last week - and looks like plan was for CT sim this week for palliative radiation to lumbar spine/pelvic mets. She was admitted yesterday with nausea, vomiting, pain (bilateral hip and low back) and FTT over last week and found to have hypercalcemia. Additional workup with MRI Brain s/o multiple brain mets, all sub cm, minimal edema but more than >30 or so on my count. 1 lesion is close to her right hippocampus but otherwise she should be a candidate for at least partial hippocampal avoidance whole brain RT. Can potentially consider SRS too but overall metastatic burden appears quite high. On my bedside evaluation, she is alert and oriented x 3, NAD, strength 5/5 all extremities, no cranial neuropathies, MSK tenderness in the lower back ~L5-S1 and right iliac crest. - She will be a candidate for hippocampal whole brain RT vs fSRS for her brain metastases. No urgent indication for inpatient radiation at this time given small, likely asymptomatic brain metastases. Final plan depending on discussion with her medical oncology team. - Plan to see her outpatient for management of her brain metastases. - Will reschedule CT simulation without contrast for treating her painful bone metastases to 05/20 (right hip and lumbar spine) - I had an extensive discussion with Ms. Marte about the natural history and overall treatment approach to brain metastases, as well as the likely outcome if treatment is not pursued. We discussed the rationale for including radiation as part of the treatment approach. - I reviewed the practicalities of radiation and the typical radiation treatment course. We reviewed the typical radiation course, including potential early and late side toxicities. - Ms. Marte wishes to proceed with radiation treatment as it was described to her. Informed consent documenting anticipated possible early and late toxicities was signed today. All of her questions were answered to the best of my ability. Disposition/discharge: - Per primary team when medically stable. Patient does not need to remain hospitalized for CT simulation or radiation therapy. Patient's current admission, imaging and pathology were discussed with the inpatient/on-call attending, Dr. Martinez and the treatment plan was arrived at after discussion with the attending physician. Please feel free to contact me with any questions or concerns. Scott Heart MD PGY-5 resident [facility] Department of Radiation Oncology For questions regarding inpatient radiation consults please page: [phone] History of Present Illness: Oncologic History: -04/2019: First self-palpated a mass in the left breast -08/26/19 Mammo/US: Left: at 12:00 a 1.9 x 1.8 x 2.0 cm lobular hard hypochromic mass Right: 11:00 a 1.3 x 1.6 x 1.2 cm hypoechoic mass with acoustic shadowing. -08/31/19 Left Breast Bx 12:00 position -G2 IDC ER 80-90% NY <1%, HER 2 IHC: 0 -OncotypeDx RS of 49 off the biopsy sample at OSH -09/14/19 Right Breast Bx 11:00 position -Fat necrosis -09/30/19 MRI Breast: Enhancing mass at the site of palpable concern at the superior slightly medial left breast. Within the left breast at approximately the 11:00 position at the site of palpable concern there is a lobulated mass like area measuring 2.1 x 2.8 x 2.3 cm -10/11/19 Neoadjuvant TC x 4 cycles -01/25/20 Left lumpectomy & SLNBx: -1.5 cm G3 IDC, DCIS, margins negative, LN 0/2, ER 75%, NY 0%, HER 2 IHC: 0 -Residual disease: ypT1c ypN0 -03/08/20 Radiation therapy to left breast Total dose: 5005 cGy. Completed 04/04/2020 -06/05/20 Adjuvant capecitabine x 8 cycles. Completed 11/13/20. -10/2020: Initiated ET via anastrozole -09/29/23 Mammo: Bi-Rads 2 -01/2024: Noticed pain involving her right abdomen with no discernable cause. Acute onset. -01/23/24 Xray Ribs: Acute, minimally displaced fracture of lateral right 5th rib. Moderate right pleural effusion and mild basilar atelectasis or possibly infiltrates. -01/30/24 Right Hip Xray: There is no acute fracture or dislocation. No cortical erosion. There appears elongated oval-shaped lucent region measuring 3.9 x 1.4 cm in the proximal femoral shaft. Now concerns for metastatic cancer. -02/19/24 ECHO: EF 67% moderate to large pericardial effusion that was circumferential without any evidence of cardiac tamponade physiology -02/27/24 PET: Extensive skeletal metastatic deposits are appreciated. Metabolic activity in the posterior right pleura is noted and there appears to be some nodularity to the right pleura. Large right pleural effusion. -03/04/24 Pleural Fluid -Cytology showed metastatic breast cancer, ER expression present. Too little sample to perform HER2 testing or quantify ER expression. NY negative. -03/12/24: Dr He for second opinion. Recommended ribociclib + fulvestrant as next line therapy. Follows with local [facility], Dr. Mark Anthony Patton. However, wishing to transfer care to [facility]. Discussed clinical trial options, including HARMONIA & JESSIE-1, but elected for SOC. Plan to start C1D1 in 2 weeks. -03/17/24: Ortho Oncology consult Dr. Chambers: plan for surgical intervention to femur -03/18/24: MRI Lumbar: Couple of marrow placing lesions in the lumbar spine and visualized pelvic bones, related to metastatic disease. Minimal extraosseous extension into the paraspinal soft tissues from the L3 spinous process lesion. Extraosseous extension from the bilateral iliac bone metastatic lesions involving the adjacent soft tissues. No epidural tumor. No central canal stenosis in the lumbar spine. Mildly enlarged retroperitoneal and right peridiaphragmatic lymph nodes. -03/19/24: Dr. Chambers RIGHT FEMUR prophylactic fixation and open biopsy. A. Right proximal femur bone lesion, excision: Metastatic carcinoma. Note: Immunostains for AE1/3 highlight tumor cells. B. Right proximal femur bone lesion #2, excision: Metastatic carcinoma, consistent with a breast primary (see note). Invasive tumor: ER negative (<1%), NY negative (<1%), HER2 negative (1+) by manual quantification at [facility]. -04/14/24: C1D1 ribociclib + fulvestrant -04/28/24: C1D15 ribociclib + fulvestrant -05/12/24: C2D1 ribociclib + fulvestrant -05/14/24: Completed post-op palliative RT to her right femur 20 Gy in 5 fractions. The patient lives in [address] [place] [address]. I have reviewed Tiny Marte's medical, surgical and other pertinent history in detail, and have updated medication and allergy information in the electronic medical record. Past Medical History: She has a past medical history of Arthritis, Breast cancer (2019), Emphysema lung, GERD (gastroesophageal reflux disease), History of chemotherapy, History of radiation therapy (2019), Hypothyroidism, and Pericardial effusion. She has no past medical history of Pacemaker. Past Surgical History: She has a past surgical history that includes breast biopsy (Left, 08/31/2019); breast biopsy (Right, 09/14/2019); breast lumpectomy (Left, 01/25/2020); cholecystectomy; treatment prophylactic femur (Right, 03/19/2024); bx bone open (Right, 03/19/2024); and other surgical (Right, 04/06/2024). Medications: She has a current medication list which includes the following prescription(s): anastrozole 1 MG tablet, benzonatate 100 MG capsule, Buprenorphine (Butrans) 5 MCG/HR Patch Weekly 5 mcg/hr patch, calcium carbonate 1250 (500 Ca) MG tablet, Cyclobenzaprine 5 MG tablet, denosumab (Prolia) 60 MG/ML Solution Prefilled Syringe injection, Enoxaparin Sodium 40 MG/0.4ML injection, faMOTIdine 20 MG tablet, FULVESTRANT IM, ibuprofen 800 MG tablet, Levothyroxine 75 MCG tablet, Loratadine 10 MG tablet, MAGNESIUM PO, Multiple Vitamins-Minerals (OCUVITE-LUTEIN PO), OLANZapine (ZyPREXA) 2.5 MG tablet, [place]-3 Fatty Acids (Fish Oil) [address], oxyCODONE 5 MG tablet, Polyethylene glycol 17 g Pack packet, Prochlorperazine 10 MG tablet, ribociclib succinate 600 mg daily dose, and Vitamin D3 125 MCG (5000 UT) per tablet, and the following Facility-Administered Medications: Acetaminophen (TYLENOL) tablet 650 mg, alum/mag hydrox.-simethicone oral suspension 30 mL, bisacodyl (DULCOLAX) suppository 10 mg, Buprenorphine (BUPRENEX) injection 0.09 mg, Buprenorphine (BUTRANS) 10 mcg/hr patch 1 patch AND VERIFY LINKED PATCH PLACEMENT, Calcitonin (MIACALCIN) injection 220 Units, [Held by provider] Enoxaparin Sodium (LOVENOX) injection 40 mg, faMOTIdine (PEPCID) tablet 20 mg, guaiFENesin (ROBITUSSIN) oral solution 200 mg, Haloperidol (HALDOL) tablet 0.5 mg OR Haloperidol lactate (HALDOL) injection 0.5 mg, Haloperidol lactate (HALDOL) injection 1 mg, Levothyroxine (SYNTHROID) tablet 75 mcg, lidocaine 4 % patch 2 patch, Loratadine (CLARITIN) tablet 10 mg, OLANZapine (zyPREXA) tablet 5 mg, Ondansetron 4mg/2ml (ZOFRAN) injection 4 mg, oxyCODONE (ROXICODONE) tablet 5 mg, Polyethylene glycol (MIRALAX) packet 17 g, Polyethylene glycol (MIRALAX) packet 17 g, Senna (SENOKOT) tablet 17.2 mg, Sodium chloride 0.9% IV solution. Allergies: Codeine and Wound dressing adhesive Social History: She reports that she quit smoking about 12 years ago. Her smoking use included cigarettes. She started smoking about 46 years ago. She has a 34 pack-year smoking history. She has never used smokeless tobacco. She reports current alcohol use. She reports that she does not use drugs. Family History: Her family history includes Breast Cancer (age of onset: 48) in her mother; Cancer- Other in her father and mother; Heart Failure in her father and mother; Hypertension in her father; Mental Illness in her mother; Other - Specify in her father. Review of Systems: A 14 point review of systems was completed and was negative except for what is noted in the HPI and in the nurses note. Physical Exam: Vitals: 05/18/24 2310 05/19/24 0503 05/19/24 1252 05/19/24 1631 BP: 160/82 145/78 161/86 125/70 Pulse: 105 98 102 99 Resp: 17 15 16 16 Temp: 98.3 degrees F (36.8 degrees C) 98.7 degrees F (37.1 degrees C) 97.8 degrees F (36.6 degrees C) 98.8 degrees F (37.1 degrees C) TempSrc: Oral Oral Oral Oral SpO2: 90% 95% 91% 92% Weight: Height: Wt Readings from Last 3 Encounters: 05/18/24 56.8 kg (125 lb 3.5 oz) 05/12/24 57.9 kg (127 lb 9.6 oz) 05/11/24 58.5 kg (129 lb) Grade 2 - Ambulatory and capable of all selfcare but unable to carry out any work activities. Up and about more than 50% of waking hours General: Well-appearing, lying comfortably in hospital bed. No acute distress noted. HEENT: Head: Normocephalic and atraumatic. Pupils are equal, round, and reactive to light and accommodation. Extraocular movements are intact. Sclerae are anicteric. NECK: Supple, non-tender. No jugular venous distension or tracheal deviation. CARDIAC: Regular rate and rhythm. PULMONARY/CHEST: Unlabored breathing ABDOMINAL: Abdomen soft, non-tender, non-distended. BACK: tenderness tp palpation at L5-S1 and Right iliac crest EXTREMITIES: Warm and well perfused. SKIN: No rashes or lesions NEUROLOGIC EXAM: Alert and oriented x 3. Speech is fluent. Cranial nerves II through XII are intact grossly. There is no upper or lower extremity sensory deficit. Muscle strength is 5/5 in all muscle groups. . PSYCHIATRIC: Appropriate mood and affect for her clinical situation. Data: Radiographic Studies: Reviewed in IS CT ABDOMEN/PELVIS WITH CONTRAST Narrative: EXAM: CT ABDOMEN/PELVIS WITH CONTRAST, 05/19/2024 14:48 PM COMPARISON: PET/CT performed on February 27, 2024. CLINICAL INDICATIONS: hx breast cancer with bone mets. c/o worsening right flank pain with intractable nausea and vomiting TECHNIQUE: CT scanning was performed of the abdomen and pelvis following the administration of intravenous contrast. PROTOCOL: Standard. CONTRAST: iohexol (OMNIPAQUE) 350 MG/ML injection 1-171 mL; Route of Administration: Intravenous; Dose: 90 mL. FINDINGS: Lung Bases: There is a right pleural drain in place. Partial visualization of a loculated right pleural effusion with questionable visualization of a soft tissue density at the right lower lobe (image 1 series 3). Enhancing pleural nodules along on the right side. Liver: There are multiple ill-defined hypodense hepatic lesions, concerning for hepatic metastases. * Cap Maker lesion in segments 2 on image 34 of series 3 measures 1.2 x 1.7 cm. * Hypodensity in segment 6 on image 62 of series 3 measures 1.7 x 2.6 cm. These hepatic lesions were not definitely visualized on the prior PET/CT. A few other discrete, more hypodense hepatic lesions, consistent with cysts are also noted scattered in the liver. Gallbladder: Cholecystectomy. Bile Ducts: Normal in caliber. Spleen: Normal. Pancreas: Normal. Adrenals: Bilateral soft tissue nodules in the adrenal glands, right larger than left. The right adrenal nodule measures 1.3 x 2.1 cm in size. Right Kidney: Normal aside from benign cysts. No solid mass. No stones. No hydronephrosis. Left Kidney: Normal. No stones. No hydronephrosis. Gastrointestinal: Normal bowel caliber and wall thickness. Peritoneum/retroperitoneum: No ascites. Lymph nodes: No enlarged or morphologically abnormal lymph nodes. Vasculature: The abdominal aorta is normal in course and caliber. Patent celiac and superior mesenteric arteries. Patent portal, splenic, and superior mesenteric veins. Bladder: Normal. Pelvic Organs: Normal. Body Wall: There is soft tissue tract with scarring along the lateral aspect of the right hip, likely postsurgical scarring. No other focal abnormality in the abdominal wall structures. Bones: Multifocal lytic osseous metastases involving the ribs, multiple lumbar vertebral bodies and multiple lytic lesions involving the pelvic bones. When compared to the attenuation correction CT of the PET/CT scan, osseous lesions have progressed. There is associated soft tissue thickening at the metastatic lesion involving the right iliac bone near the sacroiliac joint (image 93 series 3), L5 vertebra on the left (image 83 series 3) and the posterior elements of L2 and L3 vertebral bodies. Impression: IMPRESSION: 1. Progressive osseous metastatic disease with multiple lytic lesions in the spine and pelvic bones. These findings have progressed since the comparison PET/CT scan. Associated prominent soft tissue components as described above. 2. Multiple hepatic metastatic lesions. Disease in the liver is likely new since the prior CT. 3. Bilateral adrenal nodules, right larger than left, suggestive of adrenal metastases. 4. Loculated right pleural effusion with a pleural drain in place. Nodular enhancing right pleural metastases are also noted. CHEST 1 VIEW PORTABLE Narrative: EXAM: XR CHEST 1 VIEW PORTABLE, 05/18/2024 21:01 PM COMPARISON: April 28, 2024 CLINICAL INDICATIONS: increased ORELLANA RELEVANT CLINICAL HISTORY: FINDINGS: (Adequate technique) Implanted Devices: Right Pleurx catheter in place with the appropriate position. Thorax: Decreased size of right pleural effusion with stable right lower lung atelectasis. Trace left pleural effusion. Normal heart size. No pneumothorax. Right second rib lytic lucency without fracture. Impression: IMPRESSION: Decreased right pleural effusion with improvement of right lower lung atelectasis. Small left pleural effusion. Lucency in the right second rib. This could be assessed with bone scan. I personally viewed and interpreted these images and I have reviewed and approved this report. BRAIN WITH AND WITHOUT CONTRAST Narrative: EXAM: MRI BRAIN WITH AND WITHOUT CONTRAST, 05/19/2024 09:17 AM COMPARISON: No priors available for comparison. CLINICAL INDICATIONS: 63 years Female hx breast cancer. admited with intractable n/v. r/o brain mets RELEVANT CLINICAL HISTORY: TECHNIQUE: A series of multisequence, multiplanar images of the brain are obtained both before and after intravenous administration of gadolinium-based contrast using standard protocol. Study was performed at 1.5 Tigist. CONTRAST: Gadopiclenol SOLN 1-25 mL; Route of Administration: Intravenous; Dose: 5.8 mL. FINDINGS: There are numerous enhancing lesions scattered throughout the brain parenchyma, concerning for intracranial metastatic disease. These are associated with minimal FLAIR hyperintensity. No significant mass effect or midline shift. A lesion within the right frontal lobe measures 8 x 5 mm (series 20, image 161). No evidence of intracranial hemorrhage. A few these lesions are associated with diffusion restriction, which may represent high cellularity. There is dural thickening and enhancement along the both sides of the falx. No extracerebral collection. There is a small 5 x 5 mm hypoenhancing focus within the right aspect of the pituitary gland. There is slight leftward deviation of the infundibulum. Ventricles and sulci are within normal limits. Mucous retention cyst or polyp in the left maxillary sinus. Patchy abnormal marrow signal within the calvarium concerning for metastatic disease. Impression: IMPRESSION: 1. Numerous enhancing lesions scattered throughout the brain parenchyma, compatible with intracranial metastatic disease. No significant mass effect. No intracranial hemorrhage. 2. Dural thickening enhancement along both sides of the falx, concerning for possible dural metastases. 3. Patchy areas of abnormal marrow signal within the calvarium, concerning for osseous metastatic disease. 4. Prominent pituitary gland with a small 5 mm hypoenhancing focus within the right aspect of the pituitary gland. Pathology: Reviewed in [facility] Laboratory studies: Lab Results Component Value Date SODIUM 133 (L) 05/18/2024 POTASSIUM 4.4 05/18/2024 CHLORIDE 92 (L) 05/18/2024 CO2 27 05/18/2024 BUN 18 05/18/2024 CREATSERUM 0.72 05/18/2024 GLUCOSE 95 05/18/2024 Lab Results Component Value Date CALCIUM 13.3 (HH) 05/19/2024 PHOSPHORUS 3.4 05/18/2024 Lab Results Component Value Date ALT 16 05/18/2024 AST 40 (H) 05/18/2024 ALKPHOS 126 05/18/2024 BILITOTAL 0.4 05/18/2024 BILIDIRECT <0.1 05/18/2024 Lab Results Component Value Date WBC 4.38 05/18/2024 HGB 12.3 05/18/2024 HCT 37.7 05/18/2024 PLATELET 376 05/18/2024 MCV 90.4 05/18/2024 Lab Results Component Value Date RBCDISTRIBU 15.4 (H) 05/18/2024 GRNLOCYT 62.2 05/12/2024 LYMPHOCYT 26.0 05/12/2024 MONOCYTELEC 9.1 05/12/2024 EOSINOPHILS 1.8 05/12/2024 BASOPHILS 0.6 05/12/2024 LYMPHOCYTABS 0.89 (L) 05/12/2024 EOSINOPHLABS 0.06 05/12/2024 PLATELET 376 05/18/2024 MPV 9.1 05/18/2024 Lab Results Component Value Date LDH 224 (H) 05/18/2024 No results found for: AFP , AFPMATSER , AFPMOM , AFPNTDONLY , AFPFLD , AFPAMNIOFLD No results found for: CEA , CEAPRESHAMA , CEANEWMETHOD No results found for: CA125 No results found for: MT431H , CA153 No results found for: HAV , HAVIGM , HEPATITISB , HBCAB , HBEA , HCV Problem: Adult Inpatient Plan of Care Goal: Plan of Care Review Outcome: Not Progressing Goal: Patient-Specific Goal (Individualized) Outcome: Not Progressing Goal: Absence of Hospital-Acquired Illness or Injury Outcome: Not Progressing Goal: Optimal Comfort and Wellbeing Outcome: Not Progressing Goal: Readiness for Transition of Care Outcome: Not Progressing Tiny is up with a walker and assistance. She complains of right rib pain. She went down for a brain MRI and a ct scan. She had a bout of emesis after drinking one bottle of the po contrast. She got an iv and labs per ultrasound. She will possibly get a picc line placed. We are drawing q 6 hour calcium levels. Summary: PCRM inital attempt PCRM attempted to meet with patient for initial assessment, however patient is not available at this time. PCRM will continue to attempt as able. PCRM will continue to follow with multidisciplinary team for ongoing assessment of needs and discharge planning. Thais ORTEGA, [facility]- Patient Care Green Building Architect [phone] Friday-Friday 8am - 4:30pm Johnny Nevarez CNP just notified of calcium level of 13.3. BODY FITTER Johnny Schusterman notified of critical ionized calcium level of 6.99. Problem: PT - General Goals Goal: Sit <-> Stand Transfers - Patient will perform sit to/from stand transfers with modified independence and least restrictive to no device in order to improve functional mobility and safety. Outcome: Ongoing Goal: Standing Endurance/Balance - Patient will perform standing balance tasks for 5-10 min with modified independence and least restrictive to no device while maintaining an RPE of less than 3/10 to improve endurance and safety with standing tasks. Outcome: Ongoing Goal: Ambulation - Patient will ambulate 350-500 feet with modified independence and least restrictive to no device to improve ability to safely navigate home and community. Outcome: Ongoing Goal: Stairs - Patient will ascend/descend 1-4 stairs with modified independence, cane(prn), and single/no railing(s) to improve ability to safely navigate home and community. Outcome: Ongoing Problem: PT - Outcome Measure Goals Goal: TUG - Patient will perform the Timed Up and Go (TUG) in less than 15 seconds(no DME) to less than 20 seconds(with DME of demand) demonstrate reduced fall risk. Outcome: Ongoing Problem: OT - ADLs Goal: Lower Body Dressing - Patient will complete lower body dressing tasks with supervision using adaptive equipment/compensatory strategies as needed for improved ability to complete self-care activities. Outcome: Ongoing Goal: Grooming - Patient will complete grooming in standing with modified independence for improved ability to safely complete ADLs. Outcome: Ongoing Goal: Toileting - Patient will complete toileting task with modified independence and adaptive equipment as needed for improved ability to safely complete self-care activities. Outcome: Ongoing Problem: OT - Balance Goal: Balance - Standing - Patient will perform 15 minutes of functional task in standing with modified independence and good balance to promote safety and improved balance required for self-care activities. Outcome: Ongoing Problem: OT - Endurance Goal: Endurance Functional Mobility - Patient will complete distance needed for common household mobility with no rest breaks for improved tolerance to safely complete I/ADL's Outcome: Ongoing Problem: OT - Strength/ROM Goal: Strength/ROM ADL Participation - Patient will participate in UE exercise program with modified independence to prevent deconditioning while in hospital and to max UE ROM/Coordination/strength for ADLs. Outcome: Ongoing Problem: Oral Intake Inadequate Goal: Improved Oral Intake Outcome: Progressing NUTRITION ASSESSMENT Nutrition Recommendations and Plan of Care: 1. Continue daily meal selections 2. Will provide Ensure Plus (350 kcal; 13g protein) BID and Ensure Clear (240 kcal; 8g protein) once daily with meals for additional nutrition 3. Antiemetics per primary team 4. Monitor for significant weight changes 5. RD will continue to follow Tiny Marte is a 63 y.o. female with a PMH of GERD, hypothyroidism, pleural effusions s/p right pleurx, and metastatic breast cancer who was a direct admission for c/o nausea, vomiting, pain and FTT. Received Nutrition Consult for Assessment. Nutrition History Attempted to see pt this morning. She was off unit during visit. No family in room. Admitted with nausea, vomiting x 1 week and associated poor PO intake. Will send oral supplements and follow up as soon as able. Current Diet Orders Procedures DIET REGULAR Standing Status: Standing Number of Occurrences: 1 Height/Weight Evaluation Ht: 5' 3 /160 cm Wt: 125#/56.8 kg IBW:115#/52.3 kg %IBW: 108.7% BMI: 22.19 kg/(m^2) Weight History: pt has lost 10% of her weight in the last month, which is significant. Wt Readings from Last 50 Encounters: 05/18/24 56.8 kg (125 lb 3.5 oz) 05/11/24 58.7 kg (129 lb 8 oz) 04/09/24 60.6 kg (133 lb 11.2 oz) 03/17/24 63.7 kg (140 lb 8 oz) Meds reviewed: butrans, calcitionin, lovenox, famotidine, synthroid, loratadine, olanzapine, senna, zoledronic acid Continuous: 0.9NS at 200 ml/hr Labs reviewed: WBC/Hgb/Hct/Plts: 4.38/12.3/37.7/376 (05/18 2234) Na/K+/Phos/Mg/Ca: 133/4.4/3.4/1.7/13.6 (05/18 2234) Bun/Creat/Cl/CO2/Glucose: 18/0.72/92/27/95 (05/18 2234) PE: Resp: no SOB noted GI: last BM 05/17 Skin: Randall Score: 15 Extremities: no edema NFPE: deferred - pt off unit Estimated Nutrition Needs Wt used: 56.8 kg - CBW EEN (kcal/d): 6180-5360 (25-30kcal/kg CBW) EPN (g pro/d): 68-85 (1.2-1.5g/kg CBW) EFN (ml/d): 1704 (30 ml/kg CBW) Malnutrition Statement Does the patient meet criteria for malnutrition: Unable to assess - suspect malnutrition present. Pt off unit. based on the AND/ASPEN Malnutrition Criteria 2012 Pt is currently at nutrition risk due to nausea, vomiting, metastatic breast cancer. Morena Story MS, RD, LD, [facility] Pager: [phone] Vascular Access Procedure Note for Ultrasound Guided PIV Placement Assessment Tiny Marte seen and evaluated for peripheral IV insertion using ultrasound guidance. ID band present, allergies verified and patient/nurse questioned of limb precautions. Skin integrity assessed, no evidence of condition that would prevent safe insertion of a peripheral IV with ultrasound. Allergies: Allergies Allergen Reactions Codeine Nausea and Vomiting Wound Dressing Adhesive Itching and Rash Insertion Ultrasound guided PIV: Peripheral IV placed per aseptic technique under ultrasound guidance on first attempt(s). [x]Obtained labs. Peripheral IV Line - Single Lumen 05/18/242230 pink forearm, anterior, right 20 gauge;1 3/4 in length (Active) 05/18/242230 Present On Admission : no Guiding Device: ultrasound Lumen 1: pink Additional Lumens: Lumen 2: Location: forearm, anterior, right Device/Lot Number: Gauge/Length: 20 gauge;1 3/4 in length Unsuccessful Insertion Attempts: Unsuccessful Attempt Location/Site: Pain Prevention/Patient Tolerance: Removal: Additional Comments: Lumen 3: Peripheral IV Present on Admission: (Retired/Read Only) Location: (Retired/Read Only) Device: (Retired/Read Only) Gauge/Length: Clinical Informaticist/Lot Number: Unsuccessful Insertion Attempts: (Retired/Read Only) Unsuccessful Attempt Locations: Pain Prevention: Patient Tolerance: Insertion: Removal Indication: Peripheral IV Location - Orientation: Peripheral IV Location: Insertion Site WDL WDL 05/18/242230 Site Preparation/Maintenance site cleansed: chlorhexidine solution;dressing: dry and intact 05/18/242230 Securement sterile tape strips, secured with 05/18/242230 Date Dressing Changed 05/18/24 05/18/242230 Lumen 1 Patency/Maintenance flushed without difficulty;blood return, able to obtain 05/18/242230 Date Lumen 1 Cap/Connector Changed/Applied 05/18/24 05/18/242230 Phlebitis 0-->no symptoms 05/18/242230 Infiltration 0-->no symptoms 05/18/242230 Indication fluid therapy;medication therapy 05/18/242230 Positive blood return noted, flushes easily, no edema, or leakage noted. Stabilization device used to secure IV, occlusive dressing applied. Denies pain at site. Patient tolerated procedure well. Site dated and initialed. Bedside RN notified of procedure completion Education Patient/Family informed to notify nurse of any complications including pain, redness, swelling, or leakage post insertion. Pt safety room check completed prior to exiting room. [x]Call light. [x]Bed locked. [x]Bed low. [x]Tray table within reach. Thank you for allowing our team to participate in the care of this patient. Vascular Access Team [id number] RN performed skin assessment with [place]. Pt skin free of pressure ulcers, and visible wounds. Pt has right sided Pleurex Drain on admission, dressing dry and intact. RN will continue to Monitor pt. documented in this encounter [facility] 05-30-2024 Consult note Associated Order (s): IP CONSULT TO NEURO / ONCOLOGY Neuro-Oncology Clinic Initial Note Diagnosis: Brain metastasis from breast cancer (ER+, [place]-, HER2-) Oncology History Carcinoma of breast metastatic to bone, unspecified laterality 05/07/2024 - Radiation RADIATION THERAPY Treatment Details (Noted on 05/07/2024) Sites: Midline Lumbar spine, Bilateral Pelvis Technique: 3D DIRECTOR OF CAREER SERVICES Goal: Palliative Planned Treatment Start Date: No planned start date specified Secondary malignant neoplasm of brain 05/20/2024 - Radiation RADIATION THERAPY Treatment Details (Noted on 05/20/2024) Site: Bilateral Brain Technique: SRS Goal: Definitive Planned Treatment Start Date: No planned start date specified Brief Oncology History: -04/2019: First self-palpated a mass in the left breast -08/26/19 Mammo/US: Left: at 12:00 a 1.9 x 1.8 x 2.0 cm lobular hard hypochromic mass Right: 11:00 a 1.3 x 1.6 x 1.2 cm hypoechoic mass with acoustic shadowing. -08/31/19 Left Breast Bx 12:00 position -G2 IDC ER 80-90% [place] <1%, HER 2 IHC: 0 -OncotypeDx RS of 49 off the biopsy sample at OSH -09/14/19 Right Breast Bx 11:00 position -Fat necrosis -09/30/19 MRI Breast: Enhancing mass at the site of palpable concern at the superior slightly medial left breast. Within the left breast at approximately the 11:00 position at the site of palpable concern there is a lobulated mass like area measuring 2.1 x 2.8 x 2.3 cm -10/11/19 Neoadjuvant TC x 4 cycles -01/25/20 Left lumpectomy & SLNBx: -1.5 cm G3 IDC, DCIS, margins negative, LN 0/2, ER 75%, [place] 0%, HER 2 IHC: 0 -Residual disease: ypT1c ypN0 -03/08/20 Radiation therapy to left breast Total dose: 5005 cGy. Completed 04/04/2020 -06/05/20 Adjuvant capecitabine x 8 cycles. Completed 11/13/20. -10/2020: Initiated ET via anastrozole -09/29/23 Mammo: Bi-Rads 2 -01/2024: Noticed pain involving her right abdomen with no discernable cause. Acute onset. -01/23/24 Xray Ribs: Acute, minimally displaced fracture of lateral right 5th rib. Moderate right pleural effusion and mild basilar atelectasis or possibly infiltrates. -01/30/24 Right Hip Xray: There is no acute fracture or dislocation. No cortical erosion. There appears elongated oval-shaped lucent region measuring 3.9 x 1.4 cm in the proximal femoral shaft. Now concerns for metastatic cancer. -02/19/24 ECHO: EF 67% moderate to large pericardial effusion that was circumferential without any evidence of cardiac tamponade physiology -02/27/24 PET: Extensive skeletal metastatic deposits are appreciated. Metabolic activity in the posterior right pleura is noted and there appears to be some nodularity to the right pleura. Large right pleural effusion. -03/04/24 Pleural Fluid -Cytology showed metastatic breast cancer, ER expression present. Too little sample to perform HER2 testing or quantify ER expression. [place] negative. -03/12/24: Dr He for second opinion. Recommended ribociclib + fulvestrant as next line therapy. Follows with local [facility], Dr. Mark Anthony Patton. However, wishing to transfer care to [facility]. Discussed clinical trial options, including HARMONIA & JESSIE-1, but elected for SOC. Plan to start C1D1 in 2 weeks. -04/14/24: C1D1 ribociclib + fulvestrant -04/28/24: C1D15 ribociclib + fulvestrant -05/12/24: C2D1 ribociclib + fulvestrant -05/19/24: MRI brain revealed metastatic disease with dural thickening CC:Hallucinations and confusion HPI: Patient is a 63-year-old female with history of GERD, hypothyroidism and breast cancer whom Neuro-Oncology is consulted in regards to altered mental status. History obtained from patient's family at bedside. Per patient's , patient noted to have more confusion/difficulty with concentration along with thought fixation when patient is aware the events are not recent/accurate (for example, she was worried about making school lunch for her 2 children today when they are in fact 40 years old). Patient denies any active auditory or visual hallucinations. Reports feeling the most confused when she wakes up from sleep. Patient was admitted on 05/18/2024 due to persistent nausea, vomiting and failure to thrive. 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 Further complicated by severe right hip pain due to femur involvement. Patient was recently increased on her oxycodone methadone by palliative care. Patient also endorses having poor too little sleep. also confirms that sleep-wake cycle has been disturbed in the past week. Patient denies any worsening focal weakness, numbness, daily headache, vision change, facial droop, dysarthria, language difficulty, tremors, gait changes, ataxia or convulsive activity. Patient further denies any recent auras or unexplained loss of consciousness. Denies any focal symptoms prior to this admission. ROS negative except for what is noted in the interval history or reported and confirmed in nursing ROS Past Medical History: Past Medical History: Diagnosis Date Arthritis Breast cancer 2019 Emphysema lung GERD (gastroesophageal reflux disease) History of chemotherapy History of radiation therapy 2019 left breast Hypothyroidism Pericardial effusion Past Surgical History: Past Surgical History: Procedure Laterality Date OTHER SURGICAL Right 04/06/2024 Pleurx catheter placed TREATMENT PROPHYLACTIC FEMUR Right 03/19/2024 Laterality: Right; Surgeon: Chepe Chambers MD; Location: [facility] BX BONE OPEN Right 03/19/2024 Laterality: Right; Surgeon: Chepe Chambers MD; Location: [facility] BREAST LUMPECTOMY Left 01/25/2020 BREAST BIOPSY Right 09/14/2019 BREAST BIOPSY Left 08/31/2019 CHOLECYSTECTOMY Family History: Family History Problem Relation Age of Onset Cancer- Other Mother kidney Mental Illness Mother bipolar Heart Failure Mother Breast Cancer Mother 48 Cancer- Other Father kidney Hypertension Father Other - Specify Father chronic lung disease Heart Failure Father Social History: Social History Socioeconomic History Marital status: Tobacco Use Smoking status: Former Current packs/day: 0.00 Average packs/day: 1 pack/day for 34.0 years (34.0 ttl pk-yrs) Types: Cigarettes Start date: 06/02/1977 Quit date: 06/02/2011 Years since quittin.0 Smokeless tobacco: Never Vaping Use Vaping status: Former Substances: Nicotine Substance and Sexual Activity Alcohol use: Yes Comment: social drinking Drug use: Never Social Determinants of Health Food Insecurity: No Food Insecurity (05/19/2024) Hunger Vital Sign Worried About Running Out of Food in the Last Year: Never true Ran Out of Food in the Last Year: Never true Transportation Needs: No Transportation Needs (05/19/2024) PRAPARE - Transportation Lack of Transportation (Medical): No Lack of Transportation (Non-Medical): No Intimate Partner Violence: Patient Unable To Answer (05/19/2024) Humiliation, Afraid, Rape, and Kick questionnaire Fear of Current or Ex-Partner: Patient unable to answer Emotionally Abused: Patient unable to answer Physically Abused: Patient unable to answer Sexually Abused: Patient unable to answer Housing Stability: Low Risk (05/19/2024) Housing Stability Vital Sign Unable to Pay for Housing in the Last Year: No Number of Times Moved in the Last Year: 0 Homeless in the Last Year: No Medications: Current Outpatient Medications Medication Instructions anastrozole (ARIMIDEX) 1 mg, Oral, DAILY WITH DINNER benzonatate (TESSALON) 100-200 mg, Oral, 3 TIMES DAILY NEEDED calcium carbonate (OS-XAVI) 1,000 mg, Oral, DAILY Cyclobenzaprine (FLEXERIL) 5 mg, Oral, 2 TIMES DAILY NEEDED Enoxaparin Sodium (LOVENOX) 40 mg, Subcutaneous, DAILY faMOTIdine (PEPCID) 20 mg, Oral, DAILY FULVESTRANT IM Intramuscular ibuprofen (MOTRIN) 800 mg, Oral, EVERY 8 HOURS PRN Levothyroxine (SYNTHROID) 75 mcg, Oral Loratadine 10 MG tablet Oral MAGNESIUM PO 420 mg, Oral, DAILY Methadone (DOLOPHINE) 5 mg, Oral, EVERY 8 HOURS Multiple Vitamins-Minerals (OCUVITE-LUTEIN PO) Oral naloxone 4 MG/0.1ML [place] 1 spray into nostril as directed for suspected opioid overdose and call 911. If no response in 2 minutes use a new nasal spray in other nostril. Repeat until help arrives. OLANZapine (ZYPREXA) 2.5 mg, Oral, Nightly [place]-3 Fatty Acids (Fish Oil) [address] Oral [START ON 05/31/2024] oxyCODONE HCl (ROXICODONE) 5-10 mg, Oral, EVERY 4 HOURS NEEDED Polyethylene glycol (MIRALAX) 17 g, Oral, DAILY Prochlorperazine (COMPAZINE) 10 mg, Oral, EVERY 6 HOURS NEEDED Prolia 60 mg, Subcutaneous ribociclib succinate 600 mg daily dose Take three 200 mg tablets (600 mg) by mouth once daily on days 1 through 21 of a 28 day cycle. Vitamin D3 125 MCG (5000 UT) per tablet 3 tablets, Oral Inpatient Medications: faMOTIdine 20 mg Oral Q12H Levothyroxine 75 mcg Oral Before BKF lidocaine 2 patch Transdermal Q24H Loratadine 10 mg Oral Daily Melatonin 6 mg Oral QHS Methadone 5 mg Oral Q8H OLANZapine 5 mg Oral QHS Pantoprazole 40 mg Intravenous Daily Polyethylene glycol 17 g Oral Q12H Senna 17.2 mg Oral Q12H Allergies: Allergies Allergen Reactions Codeine Nausea and Vomiting Wound Dressing Adhesive Itching and Rash Physical Exam: Vital signs: Blood pressure 142/77, pulse 84, temperature 97.7 F (36.5 C), temperature source Oral, resp. rate 16, height 1.6 m (5' 2.99 ), weight 56.7 kg (124 lb 14.4 oz), SpO2 99%. KPS: 70 General: Seated in chair, in no apparent distress. Calm and cooperative; on NC, uses walker for short distance HEENT: Normocephalic, atraumatic, hearing intact Cardiovascular: RRR, 2+ pusles, Normal heart rate and rhythm. No peripheral edema or calf tenderness. Respiratory: Coarse breath sounds Skin: Warm, dry, and intact without rashes or lesions. Psych: Appropriate mood and affect, fair insight and judgement NEUROLOGICAL EXAMINATION MENTAL STATUS: Patient is awake, alert, and oriented x3, fluency/repetition/comprehension intact, no dysarthria, no neglect, no apraxia, good fund of knowledge, good attention. Able to follow simple and complex commands CRANIAL NERVES CN II: Visual del real intact to confrontation. marksmanship instructor III, IV and : PERRL. Extraocular movements intact. No nystagmus. CN V: Facial sensation is intact to light touch. CN VII: Facial strength normal with symmetric movement. CN VIII: Hearing is grossly intact. CN IX and X: Soft palate elevates symmetrically in the midline CN XI: Shoulder shrug and sternocleidomastoid strength (R/L) 5/5 CN XII: Tongue is midline with normal movement Motor: Normal bulk and tone. No pronator drift. No clonus. No Babinski Deltoids Biceps Triceps WE WF Grasp HF KE KF DF PF Right 5 5 5 5 5 5 4+ 5 5 5 5 Left 5 5 5 5 5 5 4+ 5 5 5 5 HF mildly limited by pain Reflexes: 2+ reflexes in patellas, biceps and brachioradialis bilaterally Sensation: Intact to light touch, vibration, temperature, pinprick, and proprioception in all limbs Coordination: [id number] intact bilaterally. No titubation with sitting. Rapid alternating movements are normal. Mild postural and end-intention tremors, no bradykinesia Gait: Able to ambulate with narrow based antalgic gait with use of walker; tandem and romberg testing deferred due to fall risk Labs: Reviewed as below Lab Results Component Value Date WBC 5.49 05/30/2024 HGB 9.5 (L) 05/30/2024 HCT 30.0 (L) 05/30/2024 PLATELET 362 05/30/2024 MCV 92.3 05/30/2024 Lab Results Component Value Date SODIUM 133 (L) 05/30/2024 POTASSIUM 4.0 05/30/2024 CHLORIDE 94 (L) 05/30/2024 CO2 31 05/30/2024 BUN 6 (L) 05/30/2024 CREATSERUM 0.39 (L) 05/30/2024 GLUCOSE 109 (H) 05/30/2024 Lab Results Component Value Date ALT 37 05/28/2024 AST 69 (H) 05/28/2024 ALKPHOS 219 (H) 05/28/2024 BILITOTAL 0.4 05/28/2024 BILIDIRECT 0.2 05/28/2024 Radiologic Studies: Personally reviewed brain MRI with and without contrast from 05/19/2024, agree with the official report. Per my read there are multiple enhancing lesions in the supratentorial component consistent with intracranial metastatic disease with minimal vasogenic edema. No midline shift appreciated. No acute bleed. Dural thickening on both sides of the falx cerebri appreciated. Rest of findings as per report. Assessment and Plan Pt is a 63 y.o. . female with a PMH of GERD, hypothyroidism, pleural effusions s/p right pleurx 04/06/24, and metastatic breast cancer to bone who presented as a direct admission for nausea, vomiting, pain and FTT. Found to have new SALES DEVELOPMENT MANAGER metastatic disease on brain MRI from 05/19/24. #. Acute encephalopathy: At time of encounter patient is alert and oriented x3. Suspect hypoactive delirium due to risk factors of use of multiple sedating medications such as opioids, poor sleep, prolonged hospitalization and disrupted sleep-wake cycle. There are no focal findings at this time to suggest supratentorial etiology or brain metastasis involvement. No convulsive activity or events suspicious for seizure thus far. At this time we will assess for any underlying infection and metabolic abnormalities. In the interim continue with best supportive care along with preservation of sleep-wake cycle. -Increase melatonin to 9 mg q.h.s. -Minimize sedating medications during the daytime -Preserve sleep-wake cycle; follow delirium precautions -Obtain head CT without contrast to rule out acute pathology; if worsened edema then consider brain MRI with and without contrast -Obtain following labs B12, B1, TSH, folate, copper and UA -Continue to monitor for any sources for infection -Continue to oriented patient is much as possible -Start thiamine protocol: 500 mg IV daily x3 days, then 250 mg daily x3 days, then 100 mg daily thereafter #. 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 Was also found to have osseous metastatic disease on MRI of spine. Patient currently asymptomatic from these lesions and no focal findings elicited on exam. At this time agree with the plans for SRS in addition to systemic therapy. -Continue close follow up with the primary oncologist regards to systemic management -Agree with the plans for SRS to new SALES DEVELOPMENT MANAGER lesions -Dexamethasone not indicated at this time, continue to monitor for any worsening focal deficits concerning for cerebral edema -Seizure prophylaxis not indicated at this time -Obtain post SRS MRI 4 weeks after last dose of radiation Flako White MD Neuro-Oncology Associated Order(s): IP CONSULT TO CARDIOLOGY CARDIOLOGY CONSULTATION NOTE IMPRESSION AND PLAN Ms. Marte is a 63 y.o. female with h/o metastatic breast cancer with malignancy pleural effusions s/p PleurX and chronic pericardial effusion admitted with failure to thrive, consult for effusion. Pericardial effusion, no clinical or echo signs of tamponade but it has continued to progress, she's stopped systemic therapy and planning for targeted radiation outpatient. Almost certainly etiology is malignant, no urgent pericardiocentesis is needed but likely will continue to progress. Would as thoracic surgery to see about pericardial window. We will follow up on Friday. Russ Davidson MD Cardiovascular Medicine HISTORY OF PRESENT ILLNESS Tiny Marte is a 63 y.o. female admitted to [facility] and the Cardiology service has been consulted by Dr Rosario to assist with pericardial effusion. Known pericardial effusion, admitted with cancer related pain and nausea. She' sbeen tachycaric and slightly more SOB, echo obtained with mild progression of effusion. She has intermittent lightheadedness while lying flat, chroinc shortness of breath and poor exercise capacity. No syncope, chest pain, or palps. PAST, FAMILY, AND SOCIAL HISTORY She has a past medical history of Arthritis, Breast cancer (2019), Emphysema lung, GERD (gastroesophageal reflux disease), History of chemotherapy, History of radiation therapy (2019), Hypothyroidism, and Pericardial effusion. Her family history includes Breast Cancer (age of onset: 48) in her mother; Cancer- Other in her father and mother; Heart Failure in her father and mother; Hypertension in her father; Mental Illness in her mother; Other - Specify in her father. She reports that she quit smoking about 13 years ago. Her smoking use included cigarettes. She started smoking about 47 years ago. She has a 34 pack-year smoking history. She has never used smokeless tobacco. She reports current alcohol use. She reports that she does not use drugs. She is allergic to codeine and wound dressing adhesive. She has a current medication list which includes the following prescription(s): methadone, [START ON 05/31/2024] oxycodone hcl, anastrozole, benzonatate, calcium carbonate, cyclobenzaprine, prolia, enoxaparin sodium, famotidine, fulvestrant, ibuprofen, levothyroxine, loratadine, magnesium, multiple vitamins-minerals, naloxone, olanzapine, fish oil, polyethylene glycol, prochlorperazine, ribociclib succinate 600 mg daily dose, and vitamin d3, and the following Facility-Administered Medications: acetaminophen, alum/mag hydrox.-simethicone, bisacodyl, dextrose, flumazenil, glucose, guaifenesin, haloperidol OR haloperidol lactate, hydroxyzine, levothyroxine, lidocaine, loratadine, magic mouthwash (standard), melatonin, methadone, naloxone, olanzapine, ondansetron 4mg/2ml, oxycodone OR oxycodone, pantoprazole, polyethylene glycol, polyethylene glycol, senna. REVIEW OF SYSTEMS A 14-point review of systems is negative except for what is mentioned to be positive elsewhere. PHYSICAL EXAMINATION BP (!) 133/97 (BP Location: Right arm, BP Position: Sitting) Pulse 92 Temp 97.7 F (36.5 C) (Oral) Resp 16 Ht 1.6 m (5' 2.99 ) Wt 54.7 kg (120 lb 9.5 oz) SpO2 98% BMI 21.37 kg/m Smoking Status Former O2 Device: nasal cannula (05/29/24 1158) Flow (L/min): 2 (05/29/24 0857) General: NAD, chronically ill appearing developed, well groomed, appears stated age Eyes: No ptosis, no lid lag, conjunctivae non-injected, no xanthelasma ENMT: Normal appearing auricles with no lesions or masses, hearing intact to conversational volume, oropharyngeal mucosa moist without cyanosis, teeth intact Neck: Symmetric with no masses, trachea midline, no crepitus, thyroid non-enlarged, no tenderness or nodules, no jugular venous distention Respiratory: Normal effort, no accessory muscle usage, symmetric to auscultation bilaterally, no wheezes, no rales, no rhonchi CV: tachy rate, regular rhythm, nl S1/S2, no murmurs, no clicks, rubs, or gallops, no precordial thrills, non-displaced point of maximal impact, normal bilateral carotid upstrokes without bruits, bilateral radial pulses intact and symmetric, bilateral lower extremities without edema or varicosities Abdomen: Soft, non-tender, non-distended, no masses or HSM, no ventral or umbilical hernia, normoactive bowel sounds MSI: Normal muscle tone and bulk, skin warm, dry, no cyanosis or clubbing, no tendinous xanthomas Neuro: CN2-12 intact without focal deficits, distal sensation to light touch intact Psych: Oriented to person, place, time, and situation, recent and remote memory appear intact, appropriate affect and mood DATA REVIEW Recent Labs 05/28/24 0026 05/29/24 0153 05/29/24 1129 HGB 10.4* 8.8* 9.2* Associated Order(s): IP CONSULT TO SURGERY - NEURO Neurosurgery Consult Note Reason for Consultation: spine mets Chief Complaint: N/V, pain, FTT HPI Ms. Tiny Marte is a 63 y.o. female w/hx GERD, hypothyroidism, pleural effusions s/p right pleurx, and metastatic breast cancer to brain and spine (>30 sub cm lesions to brain, planned SRS; lesions to spine new) presenting with pain and FTT. Also found to have hypercalcemia of malignancy, UTI currently being treated, bilateral pleural effusions. Plan for liver biopsy for new liver mets. Patient namely reports mechanical axial back pain in all segments of spine. Some radiation to bilateral flanks, lateral hips, does not extend down feet. Endorses R sided rib pain. Unclear if truly radicular in nature. Patient had a bout of bowel incontinence today but had been having diarrhea 2/2 stool softening regimen and could not make it to toilet in time. Had sensation throughout. Endorses paresthesias to first three digits in left hand, does not radiate from neck down. Denies arm pain. Denies shuffling gait, falls or difficulty with fine motor movements. Pt denies numbness, weakness, altered ambulation, change in vision, difficulty swallowing, change in speech, change in bowel/bladder habits, or other focal neurologic deficits. She takes no anticoagulants or antiplatelet agents at baseline, on lovenox ppx in hospital. MRI CTL 05/21/2024: Osseous metastatic disease involving the cervical spine and clivus. Mild extraosseous extension of tumor into the ventral left and left lateral epidural space at C7 (Bilsky grade 1b) which also extends into the left C6-C7 neural foramen. No other areas of significant epidural tumor. Osseous metastatic disease throughout the thoracic spine. Lesion involving the right C3 vertebral body extending into the posterior elements with mild extraosseous extension of tumor into the right ventral and right lateral epidural space (Bilsky grade 1a). Suspected minimal ventral right epidural tumor at T1. No pathologic fractures. No significant thoracic canal stenosis or cord compression. Interval progression of osseous metastatic disease compared to the previous MRI from March 18, 2024, as described above. New pathologic mild inferior endplate compression fracture at L1. Similar probably pathologic superior endplate compression fracture at L5 on the left. Minimal extraosseous extension of tumor into the ventral left epidural space at L5 (Bilsky grade 1a). No significant lumbar canal stenosis or cauda equina compression. MRI B o 05/19/2024: 1. Numerous enhancing lesions scattered throughout the brain parenchyma, compatible with intracranial metastatic disease. No significant mass effect. No intracranial hemorrhage. 2. Dural thickening enhancement along both sides of the falx, concerning for possible dural metastases. 3. Patchy areas of abnormal marrow signal within the calvarium, concerning for osseous metastatic disease. 4. Prominent pituitary gland with a small 5 mm hypoenhancing focus within the right aspect of the pituitary gland. ROS: All other systems are negative except as mentioned in HPI Past Medical History: Diagnosis Date Arthritis Breast cancer 2019 Emphysema lung GERD (gastroesophageal reflux disease) History of chemotherapy History of radiation therapy 2019 left breast Hypothyroidism Pericardial effusion Past Surgical History: Procedure Laterality Date OTHER SURGICAL Right 04/06/2024 Pleurx catheter placed TREATMENT PROPHYLACTIC FEMUR Right 03/19/2024 Laterality: Right; Surgeon: Chepe Chambers MD; Location: [facility] MA[facility] OR BX BONE OPEN Right 03/19/2024 Laterality: Right; Surgeon: Chepe Chambers MD; Location: [facility] MAIN OR BREAST LUMPECTOMY Left 01/25/2020 BREAST BIOPSY Right 09/14/2019 BREAST BIOPSY Left 08/31/2019 CHOLECYSTECTOMY Family History Problem Relation Age of Onset Cancer- Other Mother kidney Mental Illness Mother bipolar Heart Failure Mother Breast Cancer Mother 48 Cancer- Other Father kidney Hypertension Father Other - Specify Father chronic lung disease Heart Failure Father Social History Tobacco Use Smoking status: Former Current packs/day: 0.00 Average packs/day: 1 pack/day for 34.0 years (34.0 ttl pk-yrs) Types: Cigarettes Start date: 06/02/1977 Quit date: 06/02/2011 Years since quittin.9 Smokeless tobacco: Never Vaping Use Vaping status: Former Substances: Nicotine Substance Use Topics Alcohol use: Yes Comment: social drinking Drug use: Never Allergies Allergies Allergen Reactions Codeine Nausea and Vomiting Wound Dressing Adhesive Itching and Rash Infusions Scheduled Meds enoxaparin 40 mg Subcutaneous Q24H Levothyroxine 75 mcg Oral Before BKF lidocaine 2 patch Transdermal Q24H Loratadine 10 mg Oral Daily Methadone 2.5 mg Oral Q8H OLANZapine 5 mg Oral QHS Pantoprazole 40 mg Intravenous Daily Polyethylene glycol 17 g Oral Daily Senna 17.2 mg Oral QHS Sodium-potassium phosphate 500 mg Oral BID PRN Meds: Acetaminophen, alum/mag hydrox.-simethicone, bisacodyl, Buprenorphine OR Buprenorphine, Dextrose, glucose, guaiFENesin, Haloperidol OR Haloperidol lactate, hydrOXYzine, ondansetron, oxyCODONE OR oxyCODONE, Polyethylene glycol Home Meds Prior to Admission medications Medication Sig Start Date End Date Taking? Authorizing Provider Methadone 10 MG/ML Conc oral concentrate Take 0.25 mL by mouth every 8 hours. 05/23/24 06/20/24 Yes SHEKHAR Philip oxyCODONE 5 MG/5ML Solution oral solution Take 5 mL by mouth every 4 hours as needed for Mild Pain or Moderate Pain. 05/21/24 06/18/24 Yes SHEKHAR Philip anastrozole 1 MG tablet Take 1 tablet by mouth Daily (with dinner). 01/12/24 Historical Provider benzonatate 100 MG capsule Take 1-2 capsules by mouth 3 times daily as needed for Cough. 04/14/24 Davide Tatum PA-C calcium carbonate 1250 (500 Ca) MG tablet Take 1,000 mg by mouth daily. Historical Provider Cyclobenzaprine 5 MG tablet Take 1 tablet by mouth 2 times daily as needed for Muscle spasms for up to 7 days. 03/31/24 Marisa Sung PA-C denosumab (Prolia) 60 MG/ML Solution Prefilled Syringe injection Inject 1 mL under the skin. Historical Provider Enoxaparin Sodium 40 MG/0.4ML injection Inject 0.4 mL under the skin daily. 03/22/24 04/21/24 Eric Tovar MD faMOTIdine 20 MG tablet Take 1 tablet by mouth daily. 10/13/23 Historical Provider FULVESTRANT IM Inject intramuscularly. Historical Provider ibuprofen 800 MG tablet Take 1 tablet by mouth Every 8 hours as needed. 03/11/24 Historical Provider Levothyroxine 75 MCG tablet Take 1 tablet by mouth. 08/11/19 Historical Provider Loratadine 10 MG tablet Take by mouth. Historical Provider MAGNESIUM PO Take 420 mg by mouth daily. Historical Provider Multiple Vitamins-Minerals (OCUVITE-LUTEIN PO) Take by mouth. Historical Provider OLANZapine (ZyPREXA) 2.5 MG tablet Take 1 tablet by mouth at bedtime. 05/11/24 06/10/24 Maddy Pham MD [place]-3 Fatty Acids (Fish Oil) [address] Take by mouth. Historical Provider Polyethylene glycol 17 g Pack packet Take 1 packet by mouth daily. 03/22/24 Eric Tovar MD Prochlorperazine 10 MG tablet Take 1 tablet by mouth every 6 hours as needed for Nausea / Vomiting. 04/14/24 Davide Tatum PA-C ribociclib succinate 600 mg daily dose Take three 200 mg tablets (600 mg) by mouth once daily on days 1 through 21 of a 28 day cycle. 05/12/24 Carlos He MD Vitamin D3 125 MCG (5000 UT) per tablet Take 3 tablets by mouth. Historical Provider Vitals Temp: [97.8 F (36.6 C)-98.8 F (37.1 C)] 98 F (36.7 C) Pulse (Heart Rate): [82-98] 88 Resp Rate: [16-20] 20 BP: (109-147)/(62-95) 120/69 O2 Sat (%): [92 %-100 %] 100 % Physical General: NAD Cards: no obvious JVD Resp: no stridor or retractions Abd: soft NTND Ext: no edema Mental Status: Awake, alert, oriented x3. Cooperative, follows commands. Language fluent. Cranial Nerves: PERRL, EOMI bilaterally. Facial sensation intact in all 3 branches. Facial movement intact and symmetric. SCM/Trap strength 5/5 bilaterally. Tongue is midline. Motor Function: BUE/BLE 5/5, no drift Sensory Function: Sensation is intact to light touch and painful stimulation throughout. Coordination: [id number] intact bilaterally. 3+ patellar L guerrero , subtle R guerrero Steady gait with walker Labs WBC/Hgb/Hct/Plts: 3.85/10.0/31.8/485 (05/25 339) Na/K+/Phos/Mg/Ca: 138/3.7/1.9/1.7/-- (05/25 339) Bun/Creat/Cl/CO2/Glucose: 11/0.36/100/27/79 (05/25 339) Recent Labs 05/24/24 0444 PT 13.5 INR 1.0 Imaging: MRI SPINE THORACIC WITH AND WITHOUT CONTRAST Final Result IMPRESSION: Osseous metastatic disease throughout the thoracic spine, as described above. Lesion involving the right C3 vertebral body extending into the posterior elements with mild extraosseous extension of tumor into the right ventral and right lateral epidural space (Bilsky grade 1a). Suspected minimal ventral right epidural tumor at T1. No pathologic fractures. No significant thoracic canal stenosis or cord compression. SPINE LUMBAR WITH AND WITHOUT CONTRAST Final Result IMPRESSION: Interval progression of osseous metastatic disease compared to the previous MRI from March 18, 2024, as described above. New pathologic mild inferior endplate compression fracture at L1. Similar probably pathologic superior endplate compression fracture at L5 on the left. Minimal extraosseous extension of tumor into the ventral left epidural space at L5 (Bilsky grade 1a). No significant lumbar canal stenosis or cauda equina compression. SPINE CERVICAL WITH AND WITHOUT CONTRAST Final Result IMPRESSION: Osseous metastatic disease involving the cervical spine and clivus, as described above. Mild extraosseous extension of tumor into the ventral left and left lateral epidural space at C7 (Bilsky grade 1b) which also extends into the left C6-C7 neural foramen. No other areas of significant epidural tumor. No pathologic vertebral compression fractures. No significant cervical canal stenosis or cord compression. CHEST 1 VIEW PORTABLE Final Result IMPRESSION: New moderate right pleural effusion and adjacent compressive atelectasis. Mildly enlarging small left pleural effusion. ABDOMEN/PELVIS WITH CONTRAST Final Result IMPRESSION: 1. Progressive osseous metastatic disease with multiple lytic lesions in the spine and pelvic bones. These findings have progressed since the comparison PET/CT scan. Associated prominent soft tissue components as described above. 2. Multiple hepatic metastatic lesions. Disease in the liver is likely new since the prior CT. 3. Bilateral adrenal nodules, right larger than left, suggestive of adrenal metastases. 4. Loculated right pleural effusion with a pleural drain in place. Nodular enhancing right pleural metastases are also noted. BRAIN WITH AND WITHOUT CONTRAST Final Result IMPRESSION: 1. Numerous enhancing lesions scattered throughout the brain parenchyma, compatible with intracranial metastatic disease. No significant mass effect. No intracranial hemorrhage. 2. Dural thickening enhancement along both sides of the falx, concerning for possible dural metastases. 3. Patchy areas of abnormal marrow signal within the calvarium, concerning for osseous metastatic disease. 4. Prominent pituitary gland with a small 5 mm hypoenhancing focus within the right aspect of the pituitary gland. CHEST 1 VIEW PORTABLE Final Result IMPRESSION: Decreased right pleural effusion with improvement of right lower lung atelectasis. Small left pleural effusion. Lucency in the right second rib. This could be assessed with bone scan. I personally viewed and interpreted these images and I have reviewed and approved this report. PERCUTANEOUS LIVER BIOPSY (Results Pending) A/P: Tiny Marte is a 63 y.o. female w/ hx GERD, hypothyroidism, pleural effusions s/p right pleurx, and metastatic breast cancer to brain and spine (>30 sub cm lesions to brain, planned SRS; lesions to spine new) presenting with pain and FTT. Also found to have hypercalcemia of malignancy, UTI currently being treated, bilateral pleural effusions. Plan for liver biopsy for new liver mets. 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 Rad onc planning treatment of brain metastases as all are < 1cm. Mets to spine without overt cord compression or cauda equina compression. - Appreciate med onc staging and prognosis - Appreciate rad onc consults - Without overt compression, defer dex dosing to rad onc as they plan for SRS - Given radio-naive and Bilsky 1b or less, reasonable to pursue systemic therapies and not delay as no operative lesion Staff: Dr. De Leon Covering: NS1 ([id number]) ## neurosurgery coverage changes at 0530/1730; if 0530 or 1730 has passed since original consult note placed, please page covering pager above ## Complexity. Hypocalcemia - Continue to monitor and replete. Hypophosphatemia - Continue to monitor and replete. . Any conditions listed below are present on admission unless otherwise specified. . Associated attestation - Adria De Leon MD - 05/26/2024 5:24 AM EST I saw and independently examined this patient today. I discussed my findings and the therapeutic plan with the resident/fellow. I agree with the resident's/fellow's history, physical examination, and medical decisions as outlined. 63 y.o. female w/ hx GERD, hypothyroidism, pleural effusions s/p right pleurx, and metastatic breast cancer to brain and spine (>30 sub cm lesions to brain, planned SRS; lesions to spine new) presenting with pain and FTT. Also found to have hypercalcemia of malignancy, UTI currently being treated, bilateral pleural effusions. Plan for liver biopsy for new liver mets. 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 Endorses paresthesias to first three digits in left hand, does not radiate from neck down. Denies arm pain. Denies shuffling gait, falls or difficulty with fine motor movements. Pt denies numbness, weakness, altered ambulation, change in vision, difficulty swallowing, change in speech, change in bowel/bladder habits, or other focal neurologic deficits. On physical exam, she was grossly neurologically intact, 5/5 diffusely. Intact sensation diffusely. Left Adilene and subtle right Adilene present. 3+ patellar reflex. MRI CTL w/wo demonstrates osseous metastatic disease involving the cervical spine clivus. Mild extraosseous extension into the ventral left epidural space at C7 with involvement of the left C6-C7 foramen. No significant spinal canal stenosis or spinal cord compression. Intraosseous progression compared to MRI completed 03/18/24. I had an extensive conversation with the patient at bedside. We reviewed all available imaging studies her was present for the encounter. 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 Additionally she presents with diffuse pain ambulated to thrive found to have bilateral pleural effusions as well as hypercalcemia malignancy. We reviewed her MRI brain spine demonstrating multiple intracranial metastatic lesions as well as multiple foci of osseous disease. The osseous lesions are most significant at left C6-7 neural foramen/ventral epidural space as well as posterior element disease in the lumbar spine. We discussed natural history and various indications for intervention. We discussed the risks, benefits alternatives. We discussed the role of surgery and radiation will play in the management of her disease. At this time given the minimal compression with no significant neurologic deficits, I do not think there is a role for acute neurosurgical intervention. It would recommend treatment with radiation both her cervical as well as her lumbar lesion for pain. I will plan to see her back in the office at 3 months to evaluate her progress in performance from radiation. We discussed red flag symptoms and return precautions. - no role for acute neurosurgical intervention - [facility] Consult with intent to treat - Palliative Pain Consult Adria De Leon MD Patient was seen on 05/26/2024 Associated Order(s): IP CONSULT TO INTERVENTIONAL RADIOLOGY Images from the original note were not included. Interventional Radiology Consult Note Interventional Radiology Clinic [phone] - Interventional Radiology Scheduling [phone] [facility] product/industry consultant [id number] - [facility] product/industry consultant [id number] Requesting Provider/Service: Johnny Nevarez APRN-BODY FITTER Reason for Consult: liver biopsy HPI/Imaging Findings: Tiny Marte is a 63 y.o. female with a past medical history of metastatic breast cancer to the brain, bone, and lungs c/b pleural effusions s/p right PleurX and right femur fixation and radiation who presented with nausea/vomiting and failure to thrive. CT A/P from 05/19 noted new hepatic lesions. Pertinent labs include WBC 2.8, Hb 8.1, and PLT 262. Body IR service is consulted for image-guided liver lesion biopsy. Sedation Anticipated: Moderate Anticoagulation: LVX Contrast allergy: None Laboratory Data: Lab Results Component Value Date/Time HGB 8.1 (L) 05/21/2024 03:03 AM PLATELET 262 05/21/2024 03:03 AM INR 1.0 05/18/2024 10:34 PM SODIUM 138 05/21/2024 03:03 AM POTASSIUM 3.0 (L) 05/21/2024 03:03 AM GFR >90 05/21/2024 03:03 AM Allergies: Allergies Allergen Reactions Codeine Nausea and Vomiting Wound Dressing Adhesive Itching and Rash Impression/Plan: Tiny Marte is a 63 year old female with metastatic breast cancer with new liver lesions. Request for liver lesion biopsy received. This appears amenable to biopsy with US guidance. Will schedule as imaging suite availability permits. Please make patient NPO at midnight prior to the procedure Coagulation goals: Hemoglobin > 8, Platelets > 50, INR < 1.5 Blood pressure goal: 160s/90 or lower Anticoagulation, if any not listed, will need to be held per guidelines Consult discussed with SHEKHAR Thomas from the requesting team on 05/21/2024 at 11:18 AM Consult reviewed with IR Attending Dr. Sravanthi Kunz who agrees with the above plan. Aaliyah Courtney MD 05/21/2024 1:12 PM Most recent History and Physical exam was reviewed and we agree with their assessment. Important Notes Procedures are performed with either moderate sedation or anesthesia services. Both require the patient to be NPO (which includes tube feeds). Patients will need to lie flat comfortably for the duration of the procedure. Please be aware that patients requiring anesthesia services will require additional coordination which may increase the time from consult to procedure. Images from the original note were not included. Report of PICC Consultation and Evaluation: Tiny Marte seen and evaluated for PICC insertion using ultrasound guidance. ID band present, allergies and limb precautions verified with patient/nurse. Skin integrity assessed, no evidence of condition that would prevent safe insertion of a PICC with ultrasound. Allergies: Allergies Allergen Reactions Codeine Nausea and Vomiting Wound Dressing Adhesive Itching and Rash Labs Reviewed: Lab Results Component Value Date WBC 4.38 05/18/2024 HGB 12.3 05/18/2024 HCT 37.7 05/18/2024 PLATELET 376 05/18/2024 MCV 90.4 05/18/2024 Lab Results Component Value Date CREATSERUM 0.72 05/18/2024 Lab Results Component Value Date INR 1.0 05/18/2024 INR 0.9 03/17/2024 PT 13.3 05/18/2024 PT 12.3 03/17/2024 Lab Results Component Value Date PTT 22.9 (L) 03/17/2024 Temp Readings from Last 1 Encounters: 05/19/24 98.8 F (37.1 C) (Oral) I have reviewed pertinent laboratory results and allergies. Labs, allergies, Consent Form, Order, Consult, H&P and/or Schedule is consistent with planned procedure Spoke with provider regarding concerns: [] N/A [] Concerns: [x] Procedure explained to patient and consent obtained. [] Power of Commercial Litigation Associate or Next of Kin contacted for consent and obtained due to patient inability to make medical decisions. Consent obtained and given to unit to be scanned into pt records [x] Left arm [] Right arm - contains abnormality that would interfere with PICC placement: surgical clips in left axilla [x] Patient is alert, cooperative, no distress. [] Patient is not alert, cooperative and in no apparent distress. Patient verification: Patient's ID verified using patient's wrist band. Verified patient's name, MRN, and as well as procedure being done. PROCEDURE DETAILS: PICC Insertion Procedure Time Out completed: Partlow Protocol/Time Out Completed under Procedure Documentation Step 1: Pre-Procedure Verification Includes Consent Form, Order, Consult, H&P and/or Schedule is consistent with planned procedure: yes Reviewed Medication List/Allergy List: yes Relevant radiology images & scans and pathology & biopsy reports properly displayed and labeled reviewed by practitioner: yes Any required blood product, devices, implants, special equipment or supplies available: yes Consent obtained with laterality defined: yes Relevant lab results available: Yes Step 2: Site Marking Includes Site Marking: yes Step 3: Time Out Includes Patient and Procedure (side/site marked when applicable),: yes Patient Positioning Correct?: Yes The need for antibiotics or fluids to be administered: n/a Relevant images displayed (if applicable): yes Care of specimens (if applicable): N/A Partlow Protocol Verification Name of Practitioner attesting all steps of the Partlow Protocol have been completed: Padmini Rubi RN and Adelso Christie RN Pre Procedure Relevant lab results available: Yes Patient positioned supine with selected arm extended. Preliminary ultrasound of selected arm was done and assessment of adequate sized vessel was determined without presence of tourniquet. The selected arm was prepped and patient draped using maximum sterile barrier which consisted of cap, mask, hand hygiene, sterile gown and gloves, 2% chlorhexidine solution for insertion site antisepsis x 2 and occlusive sterile draping of the field. 1% Lidocaine anesthetic given subcutaneous, access was gained into the right brachial vein using direct ultrasound guidance, and modified Seldinger technique. PICC was advanced easily with PICC tip in a downward deflection from images derived from [facility] to the pre-determined external measurement. Brisk aspiration of blood from lumen(s), flushed easily with 10 ml 0.9 NS. Stabilization device Statlock used to secure PICC. Inserting PICC RN: Padmini Rubi ,attempted 1 time(s) and assisted by PICC RN Adelso Christie . PICC Line - Double Lumen 05/19/241851 purple red brachial vein, right 4 Fr (Active) 05/19/241851 Present On Admission : no Lumen 1: purple Lumen 2: red Lumen 3: Location: brachial vein, right Device/Lot Number: pressure injectable catheter;valved catheter;does not require heparinized flush Clinical Informaticist/Lot Number: [id number]/ ref [id number] Size/Length: 4 Fr Inserted Catheter Length (cm): 37 Total Length (cm): 38 Placement Verification: tip confirmation system utilized;ultrasound guided placement Tip Termination: superior vena cava Guiding Device: ultrasound Indication/Daily Review of Necessity: intravenous medication therapy;intravenous fluid therapy Inserted By: Registered Nurse Unsuccessful Insertion Attempts: 0 Unsuccessful Attempt Location/Site: Pain Prevention/Patient Tolerance: distraction Removal: Placement Over Guidewire: yes Additional Comments: Lumen 4: Lumen 5: (Retired/Read Only) Side: (Retired/Read Only) Location: (Retired/Read Only) Device: Catheter Length Distal to Site (cm): (Retired/Read Only) Indication: (Retired/Read Only) Placement Method: (Retired/Read Only) Tip Termination (to be determined by practitioner ): Unsuccessful Insertion Attempts: (Retired/Read Only) Unsuccessful Insertion Attempt Location: (Retired/Read Only) Pain Prevention: Patient Tolerance: Insertion: (Retired/Read-only) Tip Termination : Removal Indication: Pain Prevention: Insertion Site WDL WDL 05/19/241852 Site Signs/Symptoms site asymptomatic 05/19/241852 Site Preparation/Maintenance site cleansed: chlorhexidine solution;dressing: dry and intact;dressing: changed;dressing: antimicrobial 05/19/241852 Date Dressing Changed 05/19/24 05/19/241852 Catheter Length Distal to Site (cm) 1 05/19/241852 Mid-Upper Arm Circumference (cm) 23 05/19/241852 Securement catheter stabilization device, secured with 05/19/241852 Lumen 1 Patency/Maintenance flushed without difficulty;blood return, able to obtain 05/19/241852 Date Lumen 1 Cap/Connector Changed/Applied 05/19/24 05/19/241852 Lumen 2 Patency/Maintenance flushed without difficulty;blood return, able to obtain 05/19/241852 Date Lumen 2 Cap/Connector Changed/Applied 05/19/24 05/19/241852 Indication/Daily Review of Necessity intravenous fluid therapy;intravenous medication therapy 05/19/241852 Patient tolerated procedure well without any complications [x] Antimicrobial foam disc/dressing. [x] Curos antimicrobial cap placed on needless connector [x] Surgicel applied to insertion site [] Circumferential pressure drsg applied outside of tegaderm, bedside RN notified to remove dressing within 2 hours [x] PICC tip location verified to be in the lower superior vena cava (cavo-atrial junction) using ECG Technology. No xray required (See imported image above) [] CXR released from sign and hold for PICC tip confirmation. assistant teaching professor service Provider message paged through [employer] to inform of procedure completion. Provider to verify PICC tip location via chest xray released by PICC RN and will notify primary RN for PICC clearance for use. [x] PICC educational handout given to patient along with PICC lot number info card. [] Obtained labs. ( labeled labs, and left at bedside for RN ) Education: Patient/Family informed to notify nurse of any complications including pain, redness, swelling, or leakage post insertion. Pt safety room check completed prior to exiting room. [x]Call light. [x]Bed locked. [x]Bed low. [x]Tray table within reach. Central Venous Catheter Insertion Checklist I have completed the Central Venous Catheter Insertion Checklist. Extra insertion note if applicable: Johnny Nevarez CNP and Carli Looney RN notified of completion via Securechat Thank you for allowing our team to participate in the care of this patient. Vascular Access Team [id number] Vascular Access Procedure Note for Ultrasound Guided PIV Placement *PLACED PIV IN TO PATIENT'S LAST VIABLE VEIN FOR SAFE PIV PLACEMENT. IF THIS ACCESS POINT IS LOST, CENTRAL ACCESS WILL BE NECESSARY* Assessment Tiny Marte seen and evaluated for peripheral IV insertion using ultrasound guidance. ID band present, allergies verified and patient/nurse questioned of limb precautions. Skin integrity assessed, no evidence of condition that would prevent safe insertion of a peripheral IV with ultrasound. Allergies: Allergies Allergen Reactions Codeine Nausea and Vomiting Wound Dressing Adhesive Itching and Rash Insertion Ultrasound guided PIV: Peripheral IV placed per aseptic technique under ultrasound guidance on 1 attempt(s). [x]Obtained labs. Peripheral IV Line - Single Lumen 05/19/24 1047 forearm, anterior, right 20 gauge;1 3/4 in length (Active) 05/19/24 1047 Present On Admission : no Guiding Device: ultrasound Lumen 1: Additional Lumens: Lumen 2: Location: forearm, anterior, right Device/Lot Number: [id number] catheter system Gauge/Length: 20 gauge;1 3/4 in length Unsuccessful Insertion Attempts: 0 Unsuccessful Attempt Location/Site: Pain Prevention/Patient Tolerance: tolerated well;appears comfortable Removal: Additional Comments: Lumen 3: Peripheral IV Present on Admission: (Retired/Read Only) Location: (Retired/Read Only) Device: (Retired/Read Only) Gauge/Length: Clinical Informaticist/Lot Number: Unsuccessful Insertion Attempts: (Retired/Read Only) Unsuccessful Attempt Locations: Pain Prevention: Patient Tolerance: Insertion: Removal Indication: Peripheral IV Location - Orientation: Peripheral IV Location: Insertion Site WDL WDL 05/19/241047 Site Preparation/Maintenance site cleansed: chlorhexidine solution;dressing: dry and intact;dressing: changed;dressing: transparent semipermeable 05/19/241047 Securement catheter stabilization device, secured with 05/19/241047 Date Dressing Changed 05/19/24 05/19/241047 Lumen 1 Patency/Maintenance flushed without difficulty;blood return, able to obtain 05/19/241047 Date Lumen 1 Cap/Connector Changed/Applied 05/19/24 05/19/241047 Phlebitis 0-->no symptoms 05/19/241047 Infiltration 0-->no symptoms 05/19/241047 Indication fluid therapy;medication therapy 05/19/241047 Positive blood return noted, flushes easily, no edema, or leakage noted. Stabilization device used to secure IV, occlusive dressing applied. Denies pain at site. Patient tolerated procedure well. Site dated and initialed. Primary RN notified of procedure completion Education Patient/Family informed to notify nurse of any complications including pain, redness, swelling, or leakage post insertion. Pt safety room check completed prior to exiting room. [x]Call light. [x]Bed locked. [x]Bed low. [x]Tray table within reach. Thank you for allowing our team to participate in the care of this patient. Vascular Access Team [id number] Associated Order(s): IP CONSULT TO PALLIATIVE MEDICINE Palliative Medicine Consult Note Impression: Tiny Marte is a 63 y.o. female with a PMH relevant for metastatic breast CA (mets to brain, bone, lung). Admitted for management of N/V and FTT. Our team is consulted for assistance with symptom management. Assessment/Plan: Palliative Care by Specialist: - Code Status: Full Code. Addressed this encounter: No - Palliative Performance Status: 40% - Goals of Care: have not discussed in this encounter - I did not assess capacity today. - The patient does not have an HPOA. Spouse is legal next of kin Garrett Marte [phone] - Patient established with [facility] palliative [facility]. We can manage opioid prescriptions at discharge. #Nausea - poorly controlled Etiology likely multifactorial with both central and peripheral contributions. With subacute worsening over weeks and new MRI findings w/ diffuse parenchymal mets, concern that elevated intracranial pressure could be driving large portion of the nausea burden. May be some superimposed CINV given report that she was feeling well until trying to take in large PO quantity of contrast earlier today. 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 - Increase olanzapine to 5mg at bedtime - Schedule haldol 1mg q8h x 5 doses as bridge to olanzapine efficacy, - Start haldol 0.5mg PO/IV q6h PRN (note doses <3mg / 24h should not prolong the qtc) - Change zofran to 4mg PO/IV q4h PRN 2nd line - Avoid phenergan given concern for sedation w/ anticholinergic meds #Cancer Related Pain moderately controlled #Neuropathic Pain #Chest wall Pain Etiology of pain is primarily due to malignant burden w/ known diffuse bony mets. Pain is neuropathic, Msk/inflammatory, nociceptive in nature. Pain appears to be appropriately opioid responsive. With concern for intermittent uncontrolled nausea limiting ability to tolerate PO PRNs, will favor escalation of butrans and using IV buprenorphine while admitted w/ hope that we can return to using PO PRNs by the time of discharge. - Long acting opioid: Increase butrans to 10mcg/hr TD patch - Short acting opioids: -- Continue oxycodone 5mg q4h PRN -- Start IV buprenex 0.09mg q4h PRN if unable to tolerate PO -- Please wait at least one hour after giving oral opioid prior to giving IV - Monitor for opioid toxicities including oversedation/worsening mental status, respiratory depression, constipation, urinary retention, myoclonus, and uncontrolled nausea/vomiting. - Adjuvants: -- Consideration of steroids as above for nausea -- Start lidocaine patches over chest wall for MSK discomfort -- S/p zometa x1 on 05/19 for bony pain -- APAP PRN #Opioid Induced Constipation - moderately controlled No recent BM with poor PO intake and inability to tolerate bowel reg, will favor initiation a [place] regimen while nausea limits PO regimen - Avoid docusate as it is likely ineffective for pt's constipation - Increase Senna to 2 tabs BID as tolerated - Continue Miralax 17g qday PRN as tolerated - Start bisacodyl suppository qday PRN Last Bowel Movement: 05/17/24 #Insomnia - poorly controlled Likely related to uncontrolled symptoms. Medical management as above. - Melatonin 6mg PO at bedtime PRN Complexity. Any conditions listed below are present on admission unless otherwise specified.. We will continue to follow. 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 At home, has been having progressive symptoms with difficult PO intake and ongoing nausea refractory to meds even when adding in 2nd agent on top of zyprexa (unsure which med). Here in hospital, unsure if zofran has been significantly helpful, was doing well overall but with worsening after she tried to drink contrast for her CT abd. Significant exacerbation of nausea w/ vomiting while trying to take in various PO (liquid/solid) including pills. Pain similar to previous, still in back/ribs/pelvis. Mildly improved with possibly less oxycodone requirement, ultimately unsure how much benefit butrans 5 has provided to date however. Oxycodone 5mg providing ~2 hours of relief when taken, generally only taking at night at home. No BM recently, last 2-3 days ago. 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 MANAGER mets Symptom Ratings: Pain: yes Tiredness: yes Drowsiness: no Nausea: yes Lack of Appetite: yes Shortness of Breath: yes Depression: no Anxiety: yes Lack of Wellbeing: yes Other: no Constipation: yes Last Bowel Movement: 05/17/24 Analgesic Medications (24hr use): - 10mg oxycodone - 0.5mg IV hydromorpone - Butrans 5mcg/hr Td patch OME (Oral Morphine Equivalents): ~37 Physical Exam: Temp: [98.2 F (36.8 C)-98.7 F (37.1 C)] 98.7 F (37.1 C) Pulse (Heart Rate): [98-112] 98 Resp Rate: [15-17] 15 BP: (145-182)/(78-103) 145/78 O2 Sat (%): [90 %-95 %] 95 % Weight: [56.8 kg (125 lb 3.5 oz)] 56.8 kg (125 lb 3.5 oz) CONSTITUTIONAL/GENERAL: Chronically ill appearing, actively vomiting, moderate acute distress EYES: Pupils symmetric; Anicteric sclerae, moist conjunctivae NECK: Trachea midline, supple RESPIRATORY: Unlabored, normal effort; Symmetric chest wall rise NEUROLOGIC: No gross motor or sensory deficits appreciated PSYCHIATRY: Alert. Appropriate affect Data Reviewed: Lab Results Component Value Date WBC 4.38 05/18/2024 HGB 12.3 05/18/2024 HCT 37.7 05/18/2024 PLATELET 376 05/18/2024 SODIUM 133 (L) 05/18/2024 POTASSIUM 4.4 05/18/2024 CHLORIDE 92 (L) 05/18/2024 MAGNESIUM 1.7 05/18/2024 CALCIUM 13.6 (HH) 05/18/2024 CO2 27 05/18/2024 BUN 18 05/18/2024 CREATSERUM 0.72 05/18/2024 INR 1.0 05/18/2024 ALBUMIN 3.6 05/18/2024 AST 40 (H) 05/18/2024 ALT 16 05/18/2024 ALKPHOS 126 05/18/2024 BILITOTAL 0.4 05/18/2024 BILIDIRECT <0.1 05/18/2024 Estimated Creatinine Clearance: 67 mL/min (by C-G formula based on SCr of 0.72 mg/dL). Labs/results reviewed: Chem-7, LFTs, CBC, INR, and OARRs Lab review summary: - labs reviewed and appropriate for current symptom management regimen - patient with evidence of renal impairment External Notes: OARRS. Summary: -- Active Rx for butrans 5mcg/hr patch, oxycodone 5mg #56 14d supply -- Previous Rx for tramadol 50 Date: 05/11, Outpatient Palliative note, Summary: Pain in back, pelvis, ribs w/ osseous mets, oxycodone making drowsy, started butrans, olanzapine for nausea, draining 400-500 ml from pleur-x daily Date: 05/12, Outpatient med onc note, Summary: Plan for RT from 05/10- for R femoral fracture, OK to proceed with C2D1 ribociclib/fulvestrant. Plan for zometa w/ dental clearance. Summary of imaging results: MR brain w/ numerous enhancing lesions consistent with metastatic disease in parenchyma, dura, and skull. I independently interpreted the following imaging: CT abd pelvis from 05/19 -- moderate colonic stool burden, possible new hepatic mets? I independantly interpreted the following medicine tests: - EKG: Date:04/28, QTc: 422 ms Clinical assessment, tests and recommendations were discussed with: - consulting team RESTAURANT [employer]W - bedside nurse - patient - family spouse documented in this encounter [facility] 05-27-2024 Procedure note Associated Ord er(s): GENERAL PROCEDURE BODY INTERVENTIONAL RADIOLOGY PROCEDURE NOTE PROCEDURE INDICATION: 63 year old female with metastatic breast cancer with liver lesions PROCEDURE PERFORMED: US-guided liver lesion biopsy FINDINGS/TARGET: Indeterminate left hepatic lobe lesion biopsied. Gelfoam was used to achieve hemostasis. No hematoma on post biopsy images. SPECIMEN: Four 18 gauge core needle biopsy samples placed in formalin and sent to pathology. DISPOSITION OF SPECIMEN(S): Pathology PLAN: - Two hour bedrest - Await pathology results - Okay to resume AC in 24 hours Aaliyah Courtney MD 05/27/2024 3:09 PM __ BONE CHAR PULLER(S): Patel Jaramillo MD MD(Attending); Aaliyah Courtney Md (Resident). CONSENT: Informed consent was obtained prior to the procedure after discussion of the risks, benefits, and alternatives of the procedure, and expected procedure outcomes were discussed with the patient and/or circulation representative. The consent document was placed in chart. DID THIS PROCEDURE REQUIRE A UNIVERSAL PROTOCOL?: Yes. Partlow Protocol is required. Preprocedure verification is complete. Patient verified and consents confirmed, procedure sites identified and marked as appropriate, timeout called before the start of the procedure. SEDATION: Moderate sedation and local anesthetic ESTIMATED BLOOD LOSS: Less than 5 mL COMPLICATIONS: None immediate ADDITIONAL: Please refer to the report generated in the IMAGING section of the electronic medical record for additional procedure details. Thank you for allowing Interventional Radiology to participate in this patient's care. documented in this encounter [facility] 05-21-2024 History of Present illness Narrative Tiny Kwanrath was seen 05/21/2024 in Radiation Oncology for a CT Simulation. Tiny Marte will start radiation on 06/15/24 and [address] He's medical oncology group notified by [facility] lanie. Assessed pt for any further needs with regard to childcare, spiritual, financial, transportation, or psychosocial issues. Further education was provided to Tiny Marte regarding side effects of radiation, the OTV process, and Time Out procedures prior to daily treatments. No further assistance needed at this time. documented in this encounter [facility] 05-21-2024 Hospital Discharge instructions Thais Abrams RN - 05/21/2024 2:54 PM EST Images from the original note were not included. Miscellaneous Education [facility] Care Classes [facility] offers a series of monthly classes about integrative care. Integrative care involves other care methods that may be used along with your other cancer treatment. Learn about the role of exercise, diet and nutrition, manual and movement therapies as part of a cancer care program. Classes also provide a chance to share thoughts and concerns with other cancer survivors, their families and friends. For more information, contact [facility] at or visit our website at [email or web address] [email or web address] Prevention Many falls can be prevented. Here are some things you can do. First, tell your doctor or nurse if you have fallen or nearly fallen. Ask if you could see a physical therapist (PT) to help you improve your strength and balance. Check with your doctor or pharmacist to see if any of the medicines that you take may increase your risk for falls. Have your vision checked each year. See your doctor if you are dizzy or weak with any illness. Wear comfortable shoes with low, broad heels and soles that outgoing inspector. Drink enough liquid each day. Ask your doctor how much is enough. Consider using an emergency personal medical alert system. Get up slowly after sitting or lying down. Remove throw rugs, improve lighting, use reflective tape on stairs. Positive Coping Skills Coping skills are a way to decrease the negative effects of stress, anger, and anxiety. It is important to use these skills daily to maintain a manageable level of stress, decrease anxiety, and deal positively with anger. Examples of coping skills: Exercise or take a walk daily. Use relaxation or deep breathing. Engage in a positive recreation interest. Listen to calming music. Manage your time well. Talk to someone. Take a break. Eat a balanced diet. Maintain a regular sleep schedule. Your Credit Risk Manager (PCRM) has arranged your appointments for follow up based on your preference of where you would like to continue your care. If you are unable to attend appointments that have been arranged for you, it is your responsibility to call to reschedule at least 48 hours prior to the appointment date. Your PCRM has arranged additional care needs such as home health, infusion services, or durable medical equipment based on your preference and options available by your insurance and local agencies. Your After Visit Summary (AVS) has provided you with instructions for your discharge. It is your responsibility to ask questions if you have any. Please contact your medical care team at the numbers listed if you should have any additional questions. IMPORTANT: Automated Post Discharge Call Patient Information As part of your care, we will call you at the primary number we have on file, the day after you are discharged at 9:30 a.m. to check on you. Please expect a two-minute automated telephone call from the hospital. This call will come from [phone]. If you are unable to answer or do not receive the automated call, please call [phone] to complete this important evaluation. By answering the phone evaluation, a [facility] nurse will be notified if you have any questions or concerns and call you back. If you have an immediate medical need call your doctor s office, or if you have a medical emergency call 341. ELISABETH Plascencia RNM (Patient Care Green Building Architect) [phone] RENETTA Pena (Social Work) [phone] For questions only on current hospital discharge plan to facility or hospice. Please call Friday-Friday from 8:00am-4:30pm Thais Abrams RN - 05/21/2024 2:46 PM EST Know your medications, what they are used for, side effects, dosages and times to take. Use a medication record. Medications may be costly, please your physician or healthcare provider know if you are having financial difficulty. Please bring your medications to your first follow up appointment. Abrams RN - 05/21/2024 2:46 PM EST Activity: Please follow these instructions: You may perform the following activities: -Resume your usual activities without restrictions. -Take rest periods during the day as needed. -Walk as much as you can to increase your strength and endurance. Occupational Therapy: Refer to your home exercise program from you occupational therapist to continue to improve your strength and function. Physical Therapy: Refer to your home exercise program from your physical therapist to continue to improve your strength and function. Abrams RN - 05/21/2024 2:47 PM EST Diet: Your doctor has recommended that you follow these diet instructions at home. Refer to the patient education materials you received during your hospital stay. If you would like more nutrition counseling, ask your doctor about making an appointment with an outpatient dietitian. No restrictions-usual diet -You are to resume your usual diet at home. Regular Diet to help you maintain your health and control your weight. Choose healthy fats and oils such as canola or olive oils, and good sources of fiber and carbohydrates. Choose lean meats or vegetables proteins. Avoid adding salt to your foods. Increase daily intake of fruits and vegetables. Thais Abrams RN - 05/21/2024 2:53 PM EST Notify Your Doctor or Nurse if you have any of the following: Bleeding or bruising If you have bleeding, apply pressure to the site and hold the pressure firmly for 5 minutes. If the bleeding continues, apply pressure again and call 911. If the bleeding stopped, call your doctor to report it. Catheter or tube problems Call your doctor or nurse if you have problems with your tube or catheter such as it breaks or leaks, falls out, is not able to be flushed and has drainage coming from around the tube site. Decreased Circulation Call your doctor or nurse if you have swelling, numbness or loss of feeling and color change in the skin to either very pale or blue vincent in color. Airway changes: Call 911 if you suddenly have trouble breathing, hoarseness in your voice that does not clear, problems swallowing, shortness of breath and your trach came out. Decreased Urination Call your doctor or nurse if you are not able to urinate after 12 hours. Deep Vein Thrombosis Symptoms Call your doctor or nurse right away if you have any signs of blood clots such as -Tender, swollen or reddened areas anywhere in your leg. -Numbness or tingling in your lower leg or calf, or at the top of your leg or groin -Skin on you leg looks pale or blue or feels cold to touch -Chest pain or have trouble breathing -Fever or chills Fever, Chills, or Flu Call your doctor or nurse if you have a temperature greater than 100.5 degrees F and/or chills. GI Bleed Symptoms Call your doctor or nurse if you have signs of slow blood loss such as: -Black tarry bowel movements -Cold hands and feet -Weakness Call 911 if you suddenly have signs of blood loss such as: -Vomiting blood -Fast heart rate -Feeling faint or blacking out -Passing bright red blood from your rectum Nausea and Vomiting Call your doctor or nurse if you have nausea and vomiting that continues more than 24 hours, will not let you keep medicine down and will not let you keep fluids down Neurological Changes Call your doctor or nurse if you have: -A headache that does not ease with pain medication after 2 hours. -Mental confusion -Increased sleepiness -New onset of arm or hand weakness and leg or feet weakness -New or worse problems with talking -New or worse problems with balance or walking -A seizure Respiratory Changes Call your doctor or nurse if you have a cough that gets worse and blood in the sputum you cough up Unrelieved Pain Call your doctor or nurse if your pain gets worse or is not eased 1 hour after taking your pain medicine. Urinary Tract Infection Symptoms Call your doctor or nurse if you have signs of a urinary tract infection such as: -Urine is cloudy, bloody or has a bad odor -You leak urine or you have to urinate more often -You feel burning when you urinate -You have a temperature greater than 100.5 Wound Infection Symptoms Call your doctor or nurse right away if you have signs of infection at you wound such as: -More pain around the wound -Change in the amount , color and odor of drainage -The skin around the wound feels warm or has red streaks -The wound separates or opens up -You have a temperature greater than 100.5 The following attachments cannot be sent through Care Everywhere.Hypoxemia: General Info (Kittitian)Pericardial effusion: Fast facts: Video (Kittitian)Pericardial Effusion: General Info (Kittitian)Indwelling Peritoneal or Pleural Catheter: Drainage (Kittitian)documented in this encounter [facility] 05-20-2024 History of Present illness Narrative Tinyzack Marte was seen 05/20/2024 in Radiation Oncology for a CT Simulation. Tiny Marte will start radiation on 06/08/23 and [address] He medical oncology group notified by NOAH dela cruz. Assessed pt for any further needs with regard to childcare, spiritual, financial, transportation, or psychosocial issues. Further education was provided to Tiny Marte regarding side effects of radiation, the OTV process, and Time Out procedures prior to daily treatments. No further assistance needed at this time. documented in this encounter [facility] 05-20-2024 History of Present illness Narrative Consent obtained by Dr. Szymanski documented in this encounter [facility] 05-18-2024 Telephone encounter Note Per Onc team pt will be direct admitted. No further action needed by Palliative. [facility] 05-18-2024 Miscellaneous Notes Per Onc team pt will be direct admitted. No further action needed by Palliative. Called and spoke with patient and her Garrett. D/t worsening n/v, uncontrolled pain and FTT will plan for direct admission. She is in need of an expedited work up including brain MRI. I called [facility] outpatient pharmacy and her ribociclib will be delivered today prior to end of day. If they receive this prior to a bed opening up, we can give this to her while inpatient. Lastly, Dr. He would like to obtain NGS via a liquid biopsy. She has appointments with [facility] 05/21. If she is able to make these appointments and is out of the hospital by then, we will get her blood draw on this day. I notified NS that she will likely not be able to make her MRI appointments locally tomorrow as they ordered. retail assistant Outpatient Clinic Telephone Note Palliative dyad: Norah Coronel MD/Maryann Medellin APRN-BODY FITTER Patient last seen on 05/11/24 In clinic with Norah Coronel MD. Next follow up appointment is scheduled on 06/18/24 with Norah Coronel MD. Reason for phone call: see on-call RN's note Preferred Pharmacy: [facility]: Pt advised to go to local ED for evaluation and IV fluids and medications. This information has been routed to provider and/or pharmacy triage pool for review. 1. SEVERITY - NAUSEA: How bad is the nausea? (e.g., none; mild, moderate, severe) - NO NAUSEA (SCALE 0): No nausea. - MILD (SCALE 1-3): Loss of appetite without change in eating habits. - MODERATE (SCALE 4-7): Decreased oral intake without significant weight loss, dehydration, or malnutrition. - SEVERE (SCALE 8-10 OR 'WORST POSSIBLE'): Inadequate caloric or fluid intake, with significant weight loss or symptoms of dehydration; some patients may be receiving tube feeding or total parenteral nutrition (TPN). Moderate 2. SEVERITY - VOMITING: Are you vomiting? If Yes, ask: How many times have you vomited in the past 24 hours? (e.g., nausea only; mild, moderate or severe vomiting) - MILD: 1 - 2 times / day. - MODERATE: 3 - 5 times / day, decreased oral intake without significant weight loss or symptoms of dehydration. - SEVERE: 6 or more times / day, vomits everything or nearly everything, with significant weight loss, symptoms of dehydration. Mild 3. ONSET: When did the nausea and/or vomiting begin? Nausea has been ongoing since starting the Kisqali, but seems to be worse today 4. MEDICINES FOR NAUSEA: Do you have any anti-nausea medicine? What medicines have you taken and when did you last take the medicine? Has been taking compazine 3x per day and olanzapine at night time per palliative. Doesn't feel like she is getting relief from this regimen 5. ORAL INTAKE: If vomiting, Have you been able to keep any foods or fluids down? How much fluids have you had in the past 24 hours? Has not eaten or drank anything today. Has vomited after drinking water to take pills. 6. ABDOMEN PAIN: Are you having any abdomen pain? If Yes, ask: How bad is it? What does it feel like? (e.g., cramps, dull, intermittent, constant) Denies 7. DIARRHEA: Is there any diarrhea? If Yes, ask: How many times today? No diarrhea. 8. CANCER: What type of cancer do you have? Breast 9. CANCER - TREATMENT: What cancer treatments have you received? When did you last receive them? (e.g., chemotherapy, immunotherapy, radiation, or recent surgery). Note: Triager with access to patient's medical record should review treatments and administration dates. Ribo/faslodex - currently on off week of Kisqali, was supposed to restart today but didn't receive medication yet. 10. OTHER SYMPTOMS: Do you have any other symptoms? (e.g., abdominal swelling, fever, headache, jaundice, vertigo, vomiting blood or coffee grounds) Increased fatigue Called Garrett. States that Delia was previously taking compazine 3x's per day. Saw palliative last week and they added olanzapine to take HS. She has been taking olanzapine at night and compazine 3x per day. Still having significant nausea. Has vomited 2-3x today. Unable to keep anything down today. Appetite has been decreased for awhile now, not eating a lot, but today is the first day that she hasn't eaten or drank anything. Normally will have a protein shake or two during the day. Denies abdominal pain and diarrhea. Also said she is having significant fatigue. Sleeps most of the day, gets up for a couple hours at a time and then goes back to laying in bed. Garrett states the only time that she doesn't feel nauseous is when she is laying down. Currently on off week on Kisqali. Was supposed to start the Kisqali today but hasn't gotten the Kisqali yet. Should arrive tomorrow or Friday. Let Garrett know that I would send a message to Dr. He and Dav[place] and the palliative team. Advised that I am worried that she hasn't had anything to eat or drink today and that I think she should be evaluated. They live 2 hours away and don't think he could get her to [facility]. Recommended local ED as they could do labs, give her fluids, and possibly give her something for nausea to help manage acutely. Garrett said he is going to go wake her up in a little bit and see how she is feeling and if he can get her to eat something. Let them know that we could follow up tomorrow but encouraged evaluation tonight. Patient's is calling in - states patient has been feeling really nauseated and the anti nausea pills are not helping much. He shared that today patient vomited after trying to take her anti nausea pill and then again after she took Oxycodone. He would like a call back to advise as she has been feeling really miserable. documented in this encounter [facility] 05-18-2024 Miscellaneous Notes Per Onc team pt will be direct admitted. No further action needed by Palliative. Called and spoke with patient and her Garrett. D/t worsening n/v, uncontrolled pain and FTT will plan for direct admission. She is in need of an expedited work up including brain MRI. I called [facility] outpatient pharmacy and her ribociclib will be delivered today prior to end of day. If they receive this prior to a bed opening up, we can give this to her while inpatient. Lastly, Dr. He would like to obtain NGS via a liquid biopsy. She has appointments with [facility] 05/21. If she is able to make these appointments and is out of the hospital by then, we will get her blood draw on this day. I notified NS that she will likely not be able to make her MRI appointments locally tomorrow as they ordered. retail assistant Outpatient Clinic Telephone Note Palliative dyad: Norah Coronel MD/Maryann Medellin APRN-BODY FITTER Patient last seen on 05/11/24 In clinic with Norah Coronel MD. Next follow up appointment is scheduled on 06/18/24 with Norah Coronel MD. Reason for phone call: see on-call RN's note Preferred Pharmacy: [facility]: Pt advised to go to local ED for evaluation and IV fluids and medications. This information has been routed to provider and/or pharmacy triage pool for review. 1. SEVERITY - NAUSEA: How bad is the nausea? (e.g., none; mild, moderate, severe) - NO NAUSEA (SCALE 0): No nausea. - MILD (SCALE 1-3): Loss of appetite without change in eating habits. - MODERATE (SCALE 4-7): Decreased oral intake without significant weight loss, dehydration, or malnutrition. - SEVERE (SCALE 8-10 OR 'WORST POSSIBLE'): Inadequate caloric or fluid intake, with significant weight loss or symptoms of dehydration; some patients may be receiving tube feeding or total parenteral nutrition (TPN). Moderate 2. SEVERITY - VOMITING: Are you vomiting? If Yes, ask: How many times have you vomited in the past 24 hours? (e.g., nausea only; mild, moderate or severe vomiting) - MILD: 1 - 2 times / day. - MODERATE: 3 - 5 times / day, decreased oral intake without significant weight loss or symptoms of dehydration. - SEVERE: 6 or more times / day, vomits everything or nearly everything, with significant weight loss, symptoms of dehydration. Mild 3. ONSET: When did the nausea and/or vomiting begin? Nausea has been ongoing since starting the Kisqali, but seems to be worse today 4. MEDICINES FOR NAUSEA: Do you have any anti-nausea medicine? What medicines have you taken and when did you last take the medicine? Has been taking compazine 3x per day and olanzapine at night time per palliative. Doesn't feel like she is getting relief from this regimen 5. ORAL INTAKE: If vomiting, Have you been able to keep any foods or fluids down? How much fluids have you had in the past 24 hours? Has not eaten or drank anything today. Has vomited after drinking water to take pills. 6. ABDOMEN PAIN: Are you having any abdomen pain? If Yes, ask: How bad is it? What does it feel like? (e.g., cramps, dull, intermittent, constant) Denies 7. DIARRHEA: Is there any diarrhea? If Yes, ask: How many times today? No diarrhea. 8. CANCER: What type of cancer do you have? Breast 9. CANCER - TREATMENT: What cancer treatments have you received? When did you last receive them? (e.g., chemotherapy, immunotherapy, radiation, or recent surgery). Note: Triager with access to patient's medical record should review treatments and administration dates. Ribo/faslodex - currently on off week of Kisqali, was supposed to restart today but didn't receive medication yet. 10. OTHER SYMPTOMS: Do you have any other symptoms? (e.g., abdominal swelling, fever, headache, jaundice, vertigo, vomiting blood or coffee grounds) Increased fatigue Called Garrett. States that Delia was previously taking compazine 3x's per day. Saw palliative last week and they added olanzapine to take HS. She has been taking olanzapine at night and compazine 3x per day. Still having significant nausea. Has vomited 2-3x today. Unable to keep anything down today. Appetite has been decreased for awhile now, not eating a lot, but today is the first day that she hasn't eaten or drank anything. Normally will have a protein shake or two during the day. Denies abdominal pain and diarrhea. Also said she is having significant fatigue. Sleeps most of the day, gets up for a couple hours at a time and then goes back to laying in bed. Garrett states the only time that she doesn't feel nauseous is when she is laying down. Currently on off week on Kisqali. Was supposed to start the Kisqali today but hasn't gotten the Kisqali yet. Should arrive tomorrow or Friday. Let Garrett know that I would send a message to Dr. Zhong and the palliative team. Advised that I am worried that she hasn't had anything to eat or drink today and that I think she should be evaluated. They live 2 hours away and don't think he could get her to [facility]. Recommended local ED as they could do labs, give her fluids, and possibly give her something for nausea to help manage acutely. Garrett said he is going to go wake her up in a little bit and see how she is feeling and if he can get her to eat something. Let them know that we could follow up tomorrow but encouraged evaluation tonight. Patient's is calling in - states patient has been feeling really nauseated and the anti nausea pills are not helping much. He shared that today patient vomited after trying to take her anti nausea pill and then again after she took Oxycodone. He would like a call back to advise as she has been feeling really miserable. documented in this encounter [facility] 05-18-2024 Telephone encounter Note Called and spoke with patient and her Garrett. D/t worsening n/v, uncontrolled pain and FTT will plan for direct admission. She is in need of an expedited work up including brain MRI. I called [facility] outpatient pharmacy and her ribociclib will be delivered today prior to end of day. If they receive this prior to a bed opening up, we can give this to her while inpatient. Lastly, Dr. He would like to obtain NGS via a liquid biopsy. She has appointments with [facility] 05/21. If she is able to make these appointments and is out of the hospital by then, we will get her blood draw on this day. I notified NS that she will likely not be able to make her MRI appointments locally tomorrow as they ordered. [facility] 05-18-2024 Telephone encounter Note retail assistant Outpatient Clinic Telephone Note Palliative dyad: Norah Coronel MD/Maryann Bumb INTERNAL AFFAIRS COMMANDER-BODY FITTER Patient last seen on 05/11/24 In clinic with Norah Coronel MD. Next follow up appointment is scheduled on 06/18/24 with Norah Coroenl MD. Reason for phone call: see on-call RN's note Preferred Pharmacy: [facility]: Pt advised to go to local ED for evaluation and IV fluids and medications. This information has been routed to provider and/or pharmacy triage pool for review. [facility] 05-17-2024 Telephone encounter Note 1. SEVERITY - NAUSEA: How bad is the nausea? (e.g., none; mild, moderate, severe) - NO NAUSEA (SCALE 0): No nausea. - MILD (SCALE 1-3): Loss of appetite without change in eating habits. - MODERATE (SCALE 4-7): Decreased oral intake without significant weight loss, dehydration, or malnutrition. - SEVERE (SCALE 8-10 OR 'WORST POSSIBLE'): Inadequate caloric or fluid intake, with significant weight loss or symptoms of dehydration; some patients may be receiving tube feeding or total parenteral nutrition (TPN). Moderate 2. SEVERITY - VOMITING: Are you vomiting? If Yes, ask: How many times have you vomited in the past 24 hours? (e.g., nausea only; mild, moderate or severe vomiting) - MILD: 1 - 2 times / day. - MODERATE: 3 - 5 times / day, decreased oral intake without significant weight loss or symptoms of dehydration. - SEVERE: 6 or more times / day, vomits everything or nearly everything, with significant weight loss, symptoms of dehydration. Mild 3. ONSET: When did the nausea and/or vomiting begin? Nausea has been ongoing since starting the Kisqali, but seems to be worse today 4. MEDICINES FOR NAUSEA: Do you have any anti-nausea medicine? What medicines have you taken and when did you last take the medicine? Has been taking compazine 3x per day and olanzapine at night time per palliative. Doesn't feel like she is getting relief from this regimen 5. ORAL INTAKE: If vomiting, Have you been able to keep any foods or fluids down? How much fluids have you had in the past 24 hours? Has not eaten or drank anything today. Has vomited after drinking water to take pills. 6. ABDOMEN PAIN: Are you having any abdomen pain? If Yes, ask: How bad is it? What does it feel like? (e.g., cramps, dull, intermittent, constant) Denies 7. DIARRHEA: Is there any diarrhea? If Yes, ask: How many times today? No diarrhea. 8. CANCER: What type of cancer do you have? Breast 9. CANCER - TREATMENT: What cancer treatments have you received? When did you last receive them? (e.g., chemotherapy, immunotherapy, radiation, or recent surgery). Note: Triager with access to patient's medical record should review treatments and administration dates. Ribo/faslodex - currently on off week of Kisqali, was supposed to restart today but didn't receive medication yet. 10. OTHER SYMPTOMS: Do you have any other symptoms? (e.g., abdominal swelling, fever, headache, jaundice, vertigo, vomiting blood or coffee grounds) Increased fatigue Called Garrett. States that Delia was previously taking compazine 3x's per day. Saw palliative last week and they added olanzapine to take HS. She has been taking olanzapine at night and compazine 3x per day. Still having significant nausea. Has vomited 2-3x today. Unable to keep anything down today. Appetite has been decreased for awhile now, not eating a lot, but today is the first day that she hasn't eaten or drank anything. Normally will have a protein shake or two during the day. Denies abdominal pain and diarrhea. Also said she is having significant fatigue. Sleeps most of the day, gets up for a couple hours at a time and then goes back to laying in bed. Garrett states the only time that she doesn't feel nauseous is when she is laying down. Currently on off week on Kisqali. Was supposed to start the Kisqali today but hasn't gotten the Kisqali yet. Should arrive tomorrow or Friday. Let Garrett know that I would send a message to Dr. Zhong and the palliative team. Advised that I am worried that she hasn't had anything to eat or drink today and that I think she should be evaluated. They live 2 hours away and don't think he could get her to [facility]. Recommended local ED as they could do labs, give her fluids, and possibly give her something for nausea to help manage acutely. Garrett said he is going to go wake her up in a little bit and see how she is feeling and if he can get her to eat something. Let them know that we could follow up tomorrow but encouraged evaluation tonight. [facility] 05-17-2024 Telephone encounter Note Patient's is calling in - states patient has been feeling really nauseated and the anti nausea pills are not helping much. He shared that today patient vomited after trying to take her anti nausea pill and then again after she took Oxycodone. He would like a call back to advise as she has been feeling really miserable. [facility] 05-12-2024 Telephone encounter Note Call placed to Garrett. Advised PA has been approved. Garrett states that he paid out of pocket and will take his receipt to the pharmacy to try to get reimbursed. No other concerns noted. [facility] 05-12-2024 Miscellaneous Notes Call placed to Garrett. Advised PA has been approved. Garrett states that he paid out of pocket and will take his receipt to the pharmacy to try to get reimbursed. No other concerns noted. Medication Access Team coordinated the following [facility] PAC Clinics: Pain/Palliative Prior Authorization Per the patient's insurance provider, Aguila Coulter, the prior authorization for Buprenorphine 5mcg/hr patches #09/27 (on-label) was approved. Authorization number: [id number] Authorization start date: 05/12/24 Authorization end date: 05/12/25 Pharmacy notified of pa approval Opiate Prescriptions: 1, 20-25 min Jessi Barker Submitted urgent pA request via cmm to [facility] for buprenorphine 5mcg/hr patches #09/27, Yarbrough: [id number] Jessi Barker Script signed. Call placed to Garrett. Informed him that the script was sent to pharmacy. He voiced understanding and states that the pharmacist told him that it is saying that insurance will not pay until they speak with the provider. Informed Garrett that it means that the Butrans patch needs a PA and we will start the process today but it can take 24-72 hours. Informed him that if he wants the medication today then he can pay OOP though it will probably be a couple hundred dollars and I cannot guarantee that the insurance will reimburse him. If he is ok waiting a couple days then he can wait for the PA. He said that his has waited long enough and will probably pay OOP for the med today. Informed him that we will start the PA today and call him as soon as we hear anything. He voiced appreciation. Routed to PA processing pool. Call placed to Garrett. Spoke with Garrett and informed him that provider has been seeing pts but as soon as provider is out of a room and free she will sign the script and the script will be sent to new pharmacy. He voiced understanding. Garrett called and stated that [facility] [address] [place] [address] stated that they do not have a prescription for Butrans patch. Please advise. Pharmacy Change Request Medication: Butrans 5mcg [facility] [address] Next Follow-Up: 06/18/[address] Norah Coronel. Contacted Garrett to confirm and notify prescription to be sent. RX pended and routed to provider. Garrett called and shared that [facility] [address] [facility] doesn't have the Buprenorphine (Butrans) 5 MCG/HR Patch Weekly 5 mcg/hr patch in stock. [facility] told them that [facility] around [facility] corner on [address] [facility] the Buprenorphine (Butrans) 5 MCG/HR Patch Weekly 5 mcg/hr patch in stock. Garrett couldn't give any other info for [facility] location. Garrett requested a call back to him please. documented in this encounter [facility] 05-12-2024 Telephone encounter Note Medication Access Team coordinated the following [facility] PAC Clinics: Pain/Palliative Prior Authorization Per the patient's insurance provider, Aguila Coulter, the prior authorization for Buprenorphine 5mcg/hr patches #4/28 (on-label) was approved. Authorization number: [id number] Authorization start date: 05/12/24 Authorization end date: 05/12/25 Pharmacy notified of pa approval Opiate Prescriptions: 1, 20-25 min Jessi Barker [facility] 05-12-2024 History of Present illness Narrative Images from the original note were not included. [facility] Clinic Note 05/12/2024 Patient: Tiny Marte SurgOn Provider: OS Plastics Provider: MAAME Ureña Provider: OS Chief Complaint: Recurrent stage IV HR+ IDC Chief Complaint Patient presents with On Treatment Visit Ribo + Faslodex SUBJECTIVE Summary of History: Tiny Marte is a 63 y.o. female w/ recurrent stage IV HR+BC who presents to clinic today for follow up Brief Oncology History: -04/2019: First self-palpated a mass in the left breast -08/26/19 Mammo/US: Left: at 12:00 a 1.9 x 1.8 x 2.0 cm lobular hard hypochromic mass Right: 11:00 a 1.3 x 1.6 x 1.2 cm hypoechoic mass with acoustic shadowing. -08/31/19 Left Breast Bx 12:00 position -G2 IDC ER 80-90% NY <1%, HER 2 IHC: 0 -OncotypeDx RS of 49 off the biopsy sample at OSH -09/14/19 Right Breast Bx 11:00 position -Fat necrosis -09/30/19 MRI Breast: Enhancing mass at the site of palpable concern at the superior slightly medial left breast. Within the left breast at approximately the 11:00 position at the site of palpable concern there is a lobulated mass like area measuring 2.1 x 2.8 x 2.3 cm -10/11/19 Neoadjuvant TC x 4 cycles -01/25/20 Left lumpectomy & SLNBx: -1.5 cm G3 IDC, DCIS, margins negative, LN 0/2, ER 75%, NY 0%, HER 2 IHC: 0 -Residual disease: ypT1c ypN0 -03/08/20 Radiation therapy to left breast Total dose: 5005 cGy. Completed 04/04/2020 -06/05/20 Adjuvant capecitabine x 8 cycles. Completed 11/13/20. -10/2020: Initiated ET via anastrozole -09/29/23 Mammo: Bi-Rads 2 -01/2024: Noticed pain involving her right abdomen with no discernable cause. Acute onset. -01/23/24 Xray Ribs: Acute, minimally displaced fracture of lateral right 5th rib. Moderate right pleural effusion and mild basilar atelectasis or possibly infiltrates. -01/30/24 Right Hip Xray: There is no acute fracture or dislocation. No cortical erosion. There appears elongated oval-shaped lucent region measuring 3.9 x 1.4 cm in the proximal femoral shaft. Now concerns for metastatic cancer. -02/19/24 ECHO: EF 67% moderate to large pericardial effusion that was circumferential without any evidence of cardiac tamponade physiology -02/27/24 PET: Extensive skeletal metastatic deposits are appreciated. Metabolic activity in the posterior right pleura is noted and there appears to be some nodularity to the right pleura. Large right pleural effusion. -03/04/24 Pleural Fluid -Cytology showed metastatic breast cancer, ER expression present. Too little sample to perform HER2 testing or quantify ER expression. NY negative. -03/12/24: Dr He for second opinion. Recommended ribociclib + fulvestrant as next line therapy. Follows with local [facility], Dr. Mark Anthony Patton. However, wishing to transfer care to [facility]. Discussed clinical trial options, including HARMONIA & JESSIE-1, but elected for SOC. Plan to start C1D1 in 2 weeks. -04/14/24: C1D1 ribociclib + fulvestrant -04/28/24: C1D15 ribociclib + fulvestrant -05/12/24: C2D1 ribociclib + fulvestrant Interval History: -The patient reports not feeling well today. Her pain is uncontrolled and she has had uncontrolled nausea with frequent vomiting. She is due to start cycle 2 of her ribociclib medication on 05/14. She presents with her today. -Her pain is located in her hips, back and her right flank. -She has some fatigue and is resting most days all day long. Due to her pain and fatigue, her is helping her with her ADLs and taking care of household tasks and making meals. She saw palliative who added olanzapine at HS for her uncontrolled nausea and a butrans patch which she just put on yesterday. In addition, she has had constipation and PPM adjusted her constipation medications as well. She continues to have SOB with minimal exertion. -Patient denies any recent fevers, chills, night sweats, headaches, tinnitus, hearing loss, sore throat, mouth sores, dysphagia, CP, diarrhea, dysuria, urinary difficulties, rash, or peripheral neuropathy. ECOG 3 - Capable of only limited selfcare, confined to bed or chair more than 50% of waking hours ROS: Review of Systems - Negative except that mentioned in HPI above Medical History: -The patient is post-menopausal. Occurred naturally around age 53. -Family cancer history significant for breast cancer in mother, diagnosed around 48. Negative for ovarian or uterine cancer. -The patient is a former smoker (1PPD x 30 years. Quit in 2009, though vaped for a short period afterwards. Rare alcohol use. 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 She lives in [place], [place]. -Past medical history summarized below: Past Medical History: Diagnosis Date Breast cancer 2019 History of radiation therapy 2020 left breast Arthritis Emphysema lung GERD (gastroesophageal reflux disease) History of chemotherapy Hypothyroidism Pericardial effusion OBJECTIVE Vitals: 05/12/24 1523 BP: 106/65 Pulse: 104 Resp: 16 Temp: 98 F (36.7 C) Wt Readings from Last 1 Encounters: 05/12/24 57.9 kg (127 lb 9.6 oz) Physical Exam: Gen: NAD. Sitting in a chair and appears to be in a moderate amount of pain, although not acutely distressed HEENT: MMM. OP clear. CV: +sinus tachycardia. S1 and S2 noted. No MRGs. Resp: No labored breathing. GI: Soft, NT, ND, BS+. No appreciable HSM. Ext: No RACHID. Pulses 2+ throughout. Skin: No bruising or rash on exposed skin Neuro: Alert and oriented. Moving all extremities spontaneously. Psych: Normal mood and affect. Becomes tearful. L Breast: Deferred today, 05/12/24. S/p lumpectomy & SLNBx. No nipple changes, skin erythema, or palpable masses. R Breast: Deferred today, 05/12/24. No nipple changes, skin erythema, or palpable masses. Lymph: No appreciable cervical or axillary lymphadenopathy Labs: CBC Lab Results Component Value Date WBC 3.42 (L) 05/12/2024 HGB 12.9 05/12/2024 HCT 39.8 05/12/2024 PLATELET 387 05/12/2024 MCV 90.9 05/12/2024 Diff No results found for: ANC , ABSNEUCNTME Lab Results Component Value Date RBCDISTRIBU 15.2 (H) 05/12/2024 GRNLOCYT 62.2 05/12/2024 LYMPHOCYT 26.0 05/12/2024 MONOCYTELEC 9.1 05/12/2024 EOSINOPHILS 1.8 05/12/2024 BASOPHILS 0.6 05/12/2024 LYMPHOCYTABS 0.89 (L) 05/12/2024 EOSINOPHLABS 0.06 05/12/2024 PLATELET 387 05/12/2024 MPV 8.5 05/12/2024 CMP Lab Results Component Value Date ALT 17 05/12/2024 AST 33 05/12/2024 ALKPHOS 114 05/12/2024 BILITOTAL 0.3 05/12/2024 ALBUMIN 3.8 05/12/2024 Lab Results Component Value Date SODIUM 132 (L) 05/12/2024 POTASSIUM 3.9 05/12/2024 CHLORIDE 97 (L) 05/12/2024 CO2 25 05/12/2024 BUN 23 05/12/2024 CREATSERUM 0.74 05/12/2024 GLUCOSE 88 05/12/2024 Imaging: See Oncology Summary above Pathology: See Oncology Summary above ASSESSMENT & PLAN Tiny Marte is a 63 y.o. female w/ recurrent stage IV HR+BC who presents to clinic today for follow up Latest cancer stage: Stage 2 (cT2 cN0) 2019 -> ypT1c ypN0 -> Stage IV (dx 01/2024) Tumor features: L breast (01/25/20): Residual 1.5cm G3 IDC, negative margins, [address], ER 75%, NY 0%, Her2-neg (IHC 0) R pleural fluid (03/04/24): Metastatic breast cancer, ER+, NY-, HER2 unknown (too little specimen). Genetics: Germline genetic testing at [facility] 10/11/2019: Variant of Uncertain Significance (VUS) in the NTHL1 gene (c.770A>G, p.[id number]). Prior systemic therapies: TC x 4 (2019), capecitabine (9739-6126), anastrozole (0909-6357) Prior locoregional therapies: L lumpectomy & SLNBx (01/25/20) Current therapy: C1D1 ribociclib + fulvestrant 04/14/24 Future therapy: Zometa #Recurrent Metastatic HR+ Breast Cancer: -Prior h/o L-sided stage 2 (cT2 cN0) HR+ IDC in 2019 for which a neoadjuvant OncotypeDx test was sent, with a score of 49. Underwent NAC via TC x 4 cycles, then a L lumpectomy & SLNBx (01/25/20) showing residual 1.5cm G3 IDC w/ DCIS, negative margins, [address], ER 75%, NY 0%, HER2-neg (IHC 0). Completed radiation on 04/04/20, then finished capecitabine x 8 cycles on 11/13/20. -Started ET via anastrozole from 11/2020 to her metastatic recurrence date of 01/23/24 when an Xray detected a new R 5th rib fracture & R pleural effusion. -PET on 02/27/24 confirmed the R pleural effusion, R pleural nodules, and extensive bony lesions. -Underwent a R thora on 03/04/24 showing mBC. Unable to do full receptors, but appears ER+ NY-. R pleurx catheter placed 04/05 locally. -Discussed with her what it means to have metastatic breast cancer, including the inability to cure such cases. However, we have treatments available to help provide additional quality time. We expect the cancer to become resistant to the treatments we provide, so interval imaging is performed to assess for both treatment response & treatment resistance. Once the disease becomes resistant to current treatments or the treatments themselves are too toxic to manage, we transition to next line therapy. Each subsequent line of therapy is either less effective or more toxic in nature compared to prior lines. Eventually we reach a point of futility, at which goals of care need readdressed. -S/p open biopsy and prophylactic fixation of the right femur with Dr Chepe Chambers on 03/19/24 and will have radiation 05/10-05/14/24 -Post-menopausal at recurrent diagnosis and with an average functional status. Baseline symptoms of R hip/back pain & ORELLANA due to tumor burden. -Echo 04/09/24 with moderate pericardial effusion. -C1D1 ribociclib + fulvestrant 04/14/24 Recommendations: -Labs today reviewed. Note hypercalcemia with a calcium level of 11.9. She recently stopped her calcium supplementation but is still taking her vitamin D supplementation. She was advised to discontinue this and is agreeable. If her calcium continues to be elevated despite this change, she will need further management and IV hydration with close monitoring of her calcium level. Note mild hyponatremia with a sodium level of 132, likely d/t poor solute intake d/t nausea/vomiting and poor appetite. Ok to proceed today with C2D1 ribociclib + fulvestrant. Although she is due to start her ribociclib on 05/14, we will defer her start date until 05/17 to allow her a few extra days of recovery d/t her significant fatigue. -Will not make any changes in her anti-emetic plan as palliative added olanzapine at HS this week. -For her uncontrolled pain, will give her oxycodone 5 mg PO x 1 today in infusion. Her butrans patch should start working in the next 24-48 hours. She has PRN oxycodone at home for break through pain. -Plan for radiation 05/11-05/14 to R proximal femur. This lines up with her off week. She has an upcoming CT simulation for her lumbar spine and per patient, [facility] plans to line up these treatments with her next off week of ribociclib. -Plan to start zometa once we receive dental clearance. Provided dental clearance form previously Orders Placed This Encounter CBC, EDIF, PLATELET COMPREHENSIVE METABOLIC PANEL MAGNESIUM PHOSPHATE, INORGANIC CBC AND ELECTRONIC DIFF Return in 20 days (on 06/01/2024) for follow up with Davide at 1100, labs prior and C2D15 ribo. Davide Tatum PA-C Rem[facility] Breast Medical Oncology P. [phone] F. [phone] Pager. [phone] Patient brought HCPOA and living will paperwork to clinic today, placed in [facility]. Patient offered a medical snowboard instructor for sensitive exam. Pt declined. Clinic to Infusion Handoff Report S - Patient coming from Exam to Infusion for treatment B - Clinic Nurse reviewed the following: Allergies yes Medications yes Vital signs within treatment parameters yes Patient accessed no A - Reviewed patient assessment and verified following: ECOG/Toxicity yes Ht/wt yes Labs within treatment parameters Yes If no, MD/ISHA notified. Ok to Treat order entered N/A If no, MD/ISHA notified. Treatment plans signed yes If no, MD/ISHA notified. Report called to Corie Rivera - Recommendations for plan of care: Describe any changes to plan of care: Patient will receive 5mg of oxycodone today. Patient has AVS, completed check out, and discharged to infusion unit For questions, please call: Sunshine Martin RN documented in this encounter [facility] 05-12-2024 Instructions Sunshine Martin RN - 05/12/2024 3:00 PM EST Images from the original note were not included. When will my phone call be returned? Our providers will do their best to answer your call quickly. You should expect a returned call within 24 hours. If you have an emergency, please call 911 or go to your local emergency department. When will my [employer] message be returned? Our providers will do their best to answer your questions quickly. However, there are certain times when you won t get a response. Our providers won t respond to messages on nights, weekends or holidays. [employer] messages are not for urgent issues, and you can expect a response within 3 business days. If you have an emergency, please call 911 or go to your local emergency department. A business day is Friday through Friday 8 a.m. to 4:30 p.m. When are my results released? Patients have access to most test results as soon as they are available. These results and notes could include sensitive information such as a cancer diagnosis. You always have the choice to wait to view your information in [employer] until you speak with your provider. When will my FMLA/Paperwork be returned? Please allow 7-10 business days for completion of FMLA/Paperwork to be returned. Patient Satisfaction Surveys: Your opinion matters! If you receive a patient satisfaction survey in the mail we would appreciate your thoughts. Please help us get better! Store controlled substances (for example - opioids/narcotics, certain stimulants, certain sedatives, etc.) in a locked cabinet or in an area only accessible to you. When you no longer need the controlled substances that have been prescribed for you, do NOT bring them to [facility]. We are NOT permitted under law to accept controlled substances from a patient for disposal. You may dispose of controlled substances, as well as other old or pqqn-spb-iuxjrsq and prescription medications, by one of the safe methods listed below: A drug take-back program - this is the best method to dispose of medications safely. You can locate the take-back program closest to you @ https://takebackday.[place].gov under the COLLECTION SITE HUMANITIES DEPARTMENT CHAIR tab. The [facility] Board of pharmacy homepage also has an RX Disposal Splunk Consultant tool @https://www.pharmacy.[place].gov/Co mpliance/DrugDisposal. If you cannot locate a drug take-back program, never dispose of medications down the sink or toilet. Instead, place the medication in a sealable storage bag and mix with damp coffee grounds, dirt, or cat litter, then seal the bag, and dispose of in your regular trash. If you have or unused cancer medication or hazardous drugs (this does not include Tamoxifen, Anastrozole, Letrozole or Exemestane), these may be potentially donated to our [facility] repository drug program and then given to other patients who are uninsured or underinsured. Ask your [facility] pharmacist about this program. documented in this encounter [facility] 05-12-2024 Telephone encounter Note Submitted urgent pA request via cmm to [facility] for buprenorphine 5mcg/hr patches #09/27, Yarbrough: [id number] Jessi Barker [facility] 05-11-2024 Telephone encounter Note Script signed. Call placed to Garrett. Informed him that the script was sent to pharmacy. He voiced understanding and states that the pharmacist told him that it is saying that insurance will not pay until they speak with the provider. Informed Garrett that it means that the Butrans patch needs a PA and we will start the process today but it can take 24-72 hours. Informed him that if he wants the medication today then he can pay OOP though it will probably be a couple hundred dollars and I cannot guarantee that the insurance will reimburse him. If he is ok waiting a couple days then he can wait for the PA. He said that his has waited long enough and will probably pay OOP for the med today. Informed him that we will start the PA today and call him as soon as we hear anything. He voiced appreciation. Routed to PA processing pool. [facility] 05-11-2024 Telephone encounter Note Call placed to Garrett. Spoke with Garrett and informed him that provider has been seeing pts but as soon as provider is out of a room and free she will sign the script and the script will be sent to new pharmacy. He voiced understanding. [facility] 05-11-2024 Telephone encounter Note Garrett called and stated that [facility] [address] stated that they do not have a prescription for Butrans patch. Please advise. [facility] 05-11-2024 Telephone encounter Note Pharmacy Change Request Medication: Butrans 5mcg New pharmacy: [address] Next Follow-Up: 06/18/[address] Norah Coronel. Contacted Garrett to confirm and notify prescription to be sent. RX pended and routed to provider. [facility] 05-11-2024 Telephone encounter Note Garrett called and shared that [facility] in [employer] at [address] [facility] doesn't have the Buprenorphine (Butrans) 5 MCG/HR Patch Weekly 5 mcg/hr patch in stock. [facility] them that [facility] [address] [facility] the Buprenorphine (Butrans) 5 MCG/HR Patch Weekly 5 mcg/hr patch in stock. Garrett couldn't give any other info for [facility] location. Garrett requested a call back to him please. [facility] 05-11-2024 History of Present illness Narrative Images from the original note were not included. RADIATION ONCOLOGY ON-TREATMENT VISIT Date of service: 05/11/2024 Patient ID: Ms. Marte is a pleasant 63 yo F diagnosed with metastatic TNBC (ER and NY receptors are <1% and therefore negative) to bone and pleural cavity following initial treatment, which included neoadjuvant chemotherapy and BCT that completed in late 2019. She underwent right femur fixation and open biopsy on 03/19/2024. She is under the care of palliative medicine and takes oxycodone, and was prescribed zyprexa today, as compazine was not working for N/V. She notes vomiting a couple of times recently, including this AM. She Treatment site: Right femur (post-op) Current total dose: 800 cGy Planned Total Dose: 2000 cGy Current Fraction/Total Fraction: 2 / 5 Radiation Start Date: 05/10/2024 Concurrent Chemotherapy: ribociclib +fulvesterant Subjective: Ms. Marte reports pain which is located in lower back. She states that she is meeting with rad onc next week to discuss sequential treatment to her lumbar spine. She reports that she has no pain in her RLE but rather in the back. She reported 10/10 pain to RN. She has agreement with palliative care and has oxycodone. She reports N/V including vomiting this AM. She reports that she was Rx'd new anti-emetic (zyprea) this AM by palliative med. She denies any skin irritation from treatment. She has no other acute complaints or issues to discuss today. Objective: Vitals BP 121/74 Comment: vitals taken at palliative clinic Pulse 106 Temp 97.2 F (36.2 C) Resp 16 Wt 58.5 kg (129 lb) SpO2 94% BMI 22.85 kg/m Smoking Status Former ECOG PS: 70-80 General: Well-appearing, pleasant, NAD, AOx3. She is in no distress and is sitting comfortably, talking in relaxed tone. Skin: No erythema or irritation Toxicity: Grade 1-2 fatigue Technical: An attending has personally reviewed and approved all treatment imaging, table shifts and the daily set-up this week. Assessment: Tolerating radiotherapy well with expected side effects as stated above. Patient is reportedly undergoing sequential palliative RT, next to L spine. She has N/V, likely from systemic therapy, and is starting new anti-emetic today, Zyprexa. I asked her to please let us know if this is not effective, as there is at least one another med to try. Plan: Continue radiation therapy as planned. Andreina Dolan MD Oxygen Therapist, Radiation Oncology documented in this encounter [facility] 05-11-2024 History of Present illness Narrative I have seen and evaluated the patient with palliative care fellow Dr. Pham. I have independently reviewed the history, today's labs, available imaging studies as part of my assessment. I was present with the patient for all yarbrough portions of the evaluation. My findings are as follows: Tiny Marte is a 63 y.o. year old female with a history of metastatic breast cancer with mets to bone, pleural effusion s/p pleural catheter, pericardial effusion, who is seen in the Palliative Medicine clinic for pain and symptom management. Ms. Marte reports significant pain in her hips, right rib cage and low back in setting of bone mets, currently receiving radiation to her right femur and has simulation planned 05/21 for radiation to lumbar spine and pelvis. She has right-sided pleural catheter. She is reluctant to take medications and has drowsiness with oxycodone. She occasionally takes it at bedtime and it does help. She has tried 1/2 tablet during the day without benefit. She is taking tramadol 50mg BID without benefit and is taking ibuprofen 600-800mg BID for several months. We discussed butrans 5mcg patch and stopping tramadol, with plan to wean off ibuprofen but will likely require patch increase if she is tolerating it. She c/o at least several weeks of persistent nausea, worse in morning, taking compazine prn without significant benefit. She has very poor appetite as well. Discussed zyprexa 2.5mg at bedtime. Discussed bowel regimen with her opioids and adding senna to her daily miralax. Palliative Problem List: Cancer-related pain Neuropathic pain Long-term use of high-risk medication Constipation due to opioids Nausea Decreased appetite Encounter for palliative care Metastatic breast cancer Labs/results reviewed: Chem-7, LFTs, CBC, and OARRs Lab review summary: - labs reviewed and appropriate for current symptom management regimen Date of service:05/11/24 New patient packet given and clinic routine reviewed with patient. Palliative care agreement reviewed with patient and signed this visit. Nursing assessment completed and report given to Dr. Coronel and Dr. Pham. PHQ-9 score=1. Provider aware. UDT specimen kit supplied to patient along with education/instruction. UDT obtained, labelled in front of patient and sent to [facility]. UDT Testing Table CURRENT PAIN MEDICATION/S DOSAGE LAST DOSE Oxycodone IR 5mg tablet 1 tab q4h PRN.averages 0-1 tab/day 05/10/24 Tramadol 50mg tablet 1 tab q8h PRN. Averages 2 tabs/day 05/10/24 IMPRESSION: Tiny Marte is a 63 y.o. year old female with a history of stage IV metastatic breast cancer (diagnosed 2019) who is seen in the Palliative Medicine clinic for pain and symptom management. Significant co-morbidities: PALLIATIVE PROBLEMS LIST Cancer-related pain Patient with nociceptive/MSK/inflammatory pain in lower back, pelvis, and right ribs related to known osseous mets. Opioid responsive though patient hesitant to take oxycodone due to drowsiness. - Site of pain: lower back, bilateral hips, right ribs - Long-acting opioid: Start Butrans patch 5mcg/hr - Short-acting opioids: Continue Oxycodone 5mg q4h PRN, max 4 tabs/day Stop tramadol 50mg Q8H PRN (ineffective) - Adjuvant analgesics: Continue ibuprofen 800 mg BID, recommend taper as Butrans becomes effective High risk medication use - Patient has a condition that necessitates treatment with an opioid for longer than 7 days. - Additionally, a non-opiate alternative was not appropriate, or adequate, to manage patient's pain. - Obtained UDT and reviewed medication management policies - Pain management treatment agreement completed with this patient on 05/11/2024 - Advised against driving while taking opioids. - Advised the patient to keep opioids in a safe, secured location. - Continue to monitor for opiate toxicities including oversedation/worsening mental status, respiratory depression, constipation, urinary retention, myoclonus, and uncontrolled nausea/vomiting. - Naloxone plan: Naloxone discussion deferred. Covering Palliative Care Clinicians can provide prescriptions Opioid-induced constipation, at risk - Continue Miralax daily - Recommend discontinuing stool softener as likely ineffective - Start Senna 1 tablet daily PRN Nausea Vomiting Decreased appetite Suspect related to ribociclib initiation - Start Zyprexa 2.5 mg at bedtime - Continue compazine 10 mg q6h PRN SOB Malignant pleural effusion Pericardial effusion, suspected malignant Symptoms improved with PleurX. Requires 2L oxygen at night. Draining 400-500 cc every other day. Palliative care encounter - Code status: Full, not discussed - ACP: not discussed - Surrogate decision-maker: Spouse is LNOK, they have HPOA that they will bring in Orders Placed This Encounter URINE DRUG SCREEN 10 WITH CONFIRMATION Buprenorphine (Butrans) 5 MCG/HR Patch Weekly 5 mcg/hr patch oxyCODONE 5 MG tablet OLANZapine (ZyPREXA) 2.5 MG tablet Return in about 4 weeks (around 06/08/2024) for with Dr. Coronel, video. Verbal and typewritten instructions for this care plan were provided to the patient at this visit. [facility] Clinic Note Date of Visit: 05/11/2024 CHIEF COMPLAINT: nausea, pain HISTORY OF PRESENT ILLNESS: Tiny Marte presents to the clinic today accompanied by , Garrett. Patient reports worsening nausea and pain over last several weeks. Nausea is worse in the morning. She eats crushed buddy to help and takes compazine if that is ineffective. Sometimes compazine is helpful but not always. She has rare vomiting, occasional dry heaves. She has poor appetite, eating primarily cereal and protein shakes. Believes nausea may have worsened after starting ribociclib, but not positive. She also notes ongoing pain, primarily in right leg, lower back and bilateral hips. She describes pain as constant/dull with intermittent sharp, shooting pain. Pain improves with oxycodone which she is hesitant to take due to feeling drowsy with it. She primarily only takes it before bedtime. She also notes improvement with ibuprofen. Tramadol is ineffective. Cancer History Per Chart Review Diagnosed with breast cancer in 2019. Underwent lumpectomy, radiation completed 04/2020. Received 8 cycles of capecitabine completed 11/13/2020. Recurrence in 2023 with mets (femur, right pleura). Currently on ribociclib + fulvestrant. Plan for radiation 05/10-05/14 to R proximal femur. She will undergo simulation 05/21/24 to add lumbar spine/pelvis to palliative radiation course. Nursing Report Pain currently 7/10 Low back, bilateral hips, legs right rib cage Constant dull pain, sometimes sharp/shooting Highest pain: 9 Lowest: 3 Tolerates: 4 Pain worse in AM and with activity Ibuprofen, oxycodone help with pain Frequent nausea Occasional vomiting Poor appetite Weight loss + Constipation - Diarrhea Last BM today, having BM daily + Fatigue CURRENT PAIN MEDICATIONS LAST DOSE Tramadol 50 mg Q8H PRN (avg 2x/day) Cyclobenzaprine 5 mg BID PRN (not taking) Ibuprofen 800 mg Q8H PRN (avg 2x per day) Oxycodone 5 mg Q4H PRN (takes one at bedtime) Yesterday Yesterday Yesterday bedtime Other Symptom Medications Bowel Regimen Miralax 17g daily Stool softener Psychiatric/Behavioral Medications Anti-Emetics Prochlorperazine 10 mg Q6H PRN Appetite stimulants Sleep aids GERD medications Famotidine 20 mg daily Steroids Average daily OME: Previously attempted medications for symptom control: Aberrancy: I have reviewed Tiny Marte OARRS ([place] Automated Prescription (Rx) Reporting Service [email or web address]) report which covers at least the previous 12 months prior to prescribing narcotics which are indicated for controlling chronic pain. No diversion or aberrant behavior is suspected. PALLIATIVE SYMPTOM ASSESSMENT: General Pain Documentation (Adult, OB, Peds) Presence of Pain: reports pain/discomfort Comfort/Acceptable General Pain Level/Goal: 4 Pain Location: back, rib cage, hip, left, hip, right, leg, left, leg, right Pain Management Interventions: provider notified (clinic visit with Dr. Coronel) DVPRS (Defense and Veterans Pain Rating Scale) DVPRS: Rest: 7- severe pain DVPRS: Activity: 9- severe pain General Pain Descriptors Pain Frequency: constant Pain Quality: dull, other (see comments) (Sharp, shooting at times) Factors That Aggravate Pain: activity, movement, other (see comments) (Worse in the morning) Factors That Relieve Pain: medications, opiod, medications, over the counter (OTC) PHQ9 Depression Screenin05/11/2024 12:00 PM 05/11/2024 10:11 AM 04/28/2024 2:39 PM PHQ 9 Depression Scale Little interest or pleasure in doing things Not at all Not at all Not at all Feeling down, depressed, or hopeless Several days Several days Several days PHQ2/9 Total Score 1 1 1 [place] Symptom Assessment Scale-0 is no symptom expression and 10 is the worse symptom expression Palliative symptom assessment/ESAS [place] Symptom Assessment System Pain Score: 7 Tiredness Score: 7 Nausea Score: 7 Depression Score: 1 Anxiety Score: 2 Drowsiness Score: 7 Appetite Score: 8 Wellbeing Score: 7 Dyspnea Score: 5 CURRENT FUNCTION: Activity: 70 ECOG = PPS 70 0 = 100 (no evidence of disease) 1 = 80 (reduced intake) - 90 (evidence of disease) 2 = 60 (assistance with self care) -70 (reduced ambulation) 3 = 40 (mainly in bed) - 50 (mainly sit/lie) 4 = 10 (no intake) - 30 (bed bound) ROS: All pertinent positive and negative findings were mentioned in the HPI and Symptom Assessment Chart. All other systems are negative CANCER HISTORY: Oncology History Carcinoma of breast metastatic to bone, unspecified laterality 05/07/2024 - Radiation RADIATION THERAPY Treatment Details (Noted on 05/07/2024) Sites: Midline Lumbar spine, Bilateral Pelvis Technique: 3D DIRECTOR OF CAREER SERVICES Goal: Palliative Planned Treatment Start Date: No planned start date specified PAST MEDICAL HISTORY: Past Medical History: Diagnosis Date Arthritis Breast cancer 2019 Emphysema lung GERD (gastroesophageal reflux disease) History of chemotherapy History of radiation therapy 2019 left breast Hypothyroidism Pericardial effusion FAMILY HISTORY: Family History Problem Relation Age of Onset Cancer- Other Mother kidney Mental Illness Mother bipolar Heart Failure Mother Breast Cancer Mother 48 Cancer- Other Father kidney Hypertension Father Other - Specify Father chronic lung disease Heart Failure Father SOCIAL HISTORY: Social History Socioeconomic History Marital status: Spouse name: Not on file Number of children: Not on file Years of education: Not on file Highest education level: Not on file Occupational History Not on file Tobacco Use Smoking status: Former Current packs/day: 0.00 Average packs/day: 1 pack/day for 34.0 years (34.0 ttl pk-yrs) Types: Cigarettes Start date: 06/02/1977 Quit date: 06/02/2011 Years since quittin.9 Smokeless tobacco: Never Vaping Use Vaping status: Former Substances: Nicotine Substance and Sexual Activity Alcohol use: Yes Comment: social drinking Drug use: Never Sexual activity: Not on file Other Topics Concern Not on file Social History Narrative Not on file Social Determinants of Health Financial Resource Strain: Not on file Food Insecurity: No Food Insecurity (04/06/2024) Received from [facility] Hunger Vital Sign Worried About Running Out of Food in the Last Year: Never true Ran Out of Food in the Last Year: Never true Transportation Needs: No Transportation Needs (04/06/2024) Received from [facility] PRAPARE - Transportation Lack of Transportation (Medical): No Lack of Transportation (Non-Medical): No Physical Activity: Not on file Stress: Not on file Social Connections: Not on file Intimate Partner Violence: Patient Unable To Answer (03/18/2024) Humiliation, Afraid, Rape, and Kick questionnaire Fear of Current or Ex-Partner: Patient unable to answer Emotionally Abused: Patient unable to answer Physically Abused: Patient unable to answer Sexually Abused: Patient unable to answer Housing Stability: Low Risk (04/06/2024) Received from [facility] Housing Stability Vital Sign Unable to Pay for Housing in the Last Year: No Number of Times Moved in the Last Year: 1 Homeless in the Last Year: No MEDICATIONS: Current Outpatient Medications Medication Sig anastrozole 1 MG tablet Take 1 tablet by mouth Daily (with dinner). benzonatate 100 MG capsule Take 1-2 capsules by mouth 3 times daily as needed for Cough. Buprenorphine (Butrans) 5 MCG/HR Patch Weekly 5 mcg/hr patch Place 1 patch on skin every 7 days. For chronic cancer related pain. G89.3. calcium carbonate 1250 (500 Ca) MG tablet Take 1,000 mg by mouth daily. Cyclobenzaprine 5 MG tablet Take 1 tablet by mouth 2 times daily as needed for Muscle spasms for up to 7 days. denosumab (Prolia) 60 MG/ML Solution Prefilled Syringe injection Inject 1 mL under the skin. Enoxaparin Sodium 40 MG/0.4ML injection Inject 0.4 mL under the skin daily. faMOTIdine 20 MG tablet Take 1 tablet by mouth daily. FULVESTRANT IM Inject intramuscularly. ibuprofen 800 MG tablet Take 1 tablet by mouth Every 8 hours as needed. Levothyroxine 75 MCG tablet Take 1 tablet by mouth. Loratadine 10 MG tablet Take by mouth. MAGNESIUM PO Take 420 mg by mouth daily. Multiple Vitamins-Minerals (OCUVITE-LUTEIN PO) Take by mouth. OLANZapine (ZyPREXA) 2.5 MG tablet Take 1 tablet by mouth at bedtime. [place]-3 Fatty Acids (Fish Oil) [address] Take by mouth. oxyCODONE 5 MG tablet Take 1 tablet by mouth every 4 hours as needed for Moderate Pain for up to 14 days. Max 4 tabs per day. For chronic cancer related pain. G89.3. Ok to fill with Butrans patch. Polyethylene glycol 17 g Pack packet Take 1 packet by mouth daily. Prochlorperazine 10 MG tablet Take 1 tablet by mouth every 6 hours as needed for Nausea / Vomiting. ribociclib succinate 600 mg daily dose Take three 200 mg tablets (600 mg) by mouth once daily on days 1 through 21 of a 28 day cycle. Vitamin D3 125 MCG (5000 UT) per tablet Take 3 tablets by mouth. ALLERGIES: Allergies Allergen Reactions Codeine Nausea and Vomiting Wound Dressing Adhesive Itching and Rash Adverse Effects: No substantial side effects of the current medical regimen. PHYSICAL EXAM: Blood pressure 121/74, pulse 106, temperature 97.2 F (36.2 C), temperature source Infrared, resp. rate 16, height 1.6 m (5' 3 ), weight 58.7 kg (129 lb 8 oz), SpO2 94%. Wt Readings from Last 3 Encounters: 05/11/24 58.5 kg (129 lb) 05/11/24 58.7 kg (129 lb 8 oz) 04/28/24 59.3 kg (130 lb 12.8 oz) GENERAL: Well developed, appears appropriate age, NAD RESPIRATORY: Normal effort, CTAB, speaks in full complete sentences EXTREMITIES: No edema INTEGUMENTARY: No rashes or lesions on exposed skin NEUROLOGIC: Alert, oriented, and attentive. Answers appropriately, CAM negative. Sensation and coordination grossly intact, no myoclonus, no tremor, no increased tone PSYCHIATRY: Calm with good eye contact, non-tangential speech, good insight, appropriate range of emotions DIAGNOSTIC STUDIES: LABS: Reviewed and notable for: Lab Results Component Value Date WBC 3.80 (L) 04/28/2024 RBC 4.46 04/28/2024 HGB 13.1 04/28/2024 HCT 41.1 04/28/2024 PLATELET 354 04/28/2024 MCV 92.2 04/28/2024 Lab Results Component Value Date SODIUM 135 04/28/2024 POTASSIUM 4.2 04/28/2024 CHLORIDE 101 04/28/2024 CO2 24 04/28/2024 CALCIUM 10.9 (H) 04/28/2024 BUN 18 04/28/2024 BUNCREARATIO 26 04/28/2024 GFR >90 04/28/2024 CREATSERUM 0.70 04/28/2024 RADIOGRAPHIC STUDIES: Personally reviewed, notable for: -PET 02/27/2024: extensive skeletal mets (C2, C7, thoracic spine, ribs, lumbar spine, iliac bones), mets to right pleura - MRI L Spine 03/18/24: marrow replacing lesions in the lumbar spine and pelvic bones - TTE 03/17/24: moderate size pericardial effusion, no evidence of tamponade MEDICAL DIAGNOSTIC STUDIES: Date/EK04/28/2024 Personally reviewed? yes QTc: 422 ms Signature: Maddy Pham MD Date: 05/11/2024 AVS reviewed, prescriptions for symptom management sent e-script to patient's preferred pharmacy, and palliative care phone number and hours of operation reviewed at discharge. Patient escorted to check out to schedule next RTC appointment. documented in this encounter [facility] 05-11-2024 Instructions Norah Coronel MD - 05/11/2024 9:20 AM EST Images from the original note were not included. Thank you for choosing the Palliative Medicine clinic for your care today. In the future, you may see me (Dr. Norah Coronel) or a nurse practitioner I work very closely with, Maryann Medellin or Escobar Saini. We work as a team and communicate regularly about our shared patients. Patient Instructions: --Start butrans patch. Apply 1 patch to your upper arm and leave in place for 7 days. Remove old patch and discard. Apply new patch to other arm. --Continue your oxycodone 5mg every 4 hours as needed --Stop tramadol --Work on backing off on your ibuprofen --For nausea, start olanzapine 1 tablet daily at bedtime --Continue miralax daily --Start senna 2 tabs daily for constipation Thanks, Norah Coronel MD If you have any questions or concerns about your health or your clinic visit today, you may call and leave a message. Our office hours are 8:00am - 4:30pm, Friday through Friday. A nurse will respond to your call within 1 business day. You can also use [employer] to send a message to us and we will respond within 2 business days. If you have an emergency, go to the nearest emergency room or call 911. When able, call the Palliative Medicine office to let us know that you received emergency medical care. Medicine Refills: When you need a medicine refill, call at least 3 business days before your supply is gone. It is very important to keep track of your pain medicine, so you have medicine when you need it. We are unable to give early refills, unless shown to be medically necessary. We do not refill medicines on the weekends. If you have a health problem start over the weekend, the on-call staff will decide if any other medicines are needed to treat the problem. Medicine Storage & Disposal: Store your prescribed pain medicine in a safe place, such as a locked drawer or cabinet to keep anyone else from taking it. When you no longer need your prescribed pain medicine, do not flush the medicine down the sink or toilet. Get rid of the medicine right away by using one of these safe disposal methods: A drug take-back program is the best way to safely get rid of unused prescription drugs. Click this link Drug Take-Back Programs If a drug take-back program is not available in your area, crush the tablet or capsule and mix it with damp coffee grounds or cat litter. Place the mixture in a sealed plastic freezer bag and put it in your regular trash. Once your visit note is ready, it will be available for you to review in [facility]. If you have questions about the information in your visit summary, you may call the office at or send a message to us through [employer]. If it is not an urgent concern, write it down to share with the team at your next appointment. Your feedback about the care we provided during your visit today is very important to us. After your visit, you may receive a survey in the mail or in an email. We hope you will take a moment to tell us about your experience today, and if there is anything we can do to improve our patient care. Thank you! Using the Buprenorphine (Butrans) Patch Buprenorphine is an opioid medicine used to treat moderate to severe pain. This may be prescribed if you have not had relief from other pain medicines. Buprenorphine comes as a patch that allows the drug to be absorbed through your skin and into your bloodstream to provide pain relief throughout your entire body. Talk to your health care provider about the benefits and risks of using this medicine. The buprenorphine patch provides general, steady pain relief across your body. Your provider may also prescribe a short acting pain relief medicine to use with the patch if you are still having some pain from time to time. Short acting means it works faster, but does not last as long. When the patch is first applied, it will take a few hours to days for you to start feeling pain relief. If after a few days the buprenorphine patch is not treating your pain well enough, or you are using your short acting pain relief medicine more than 3 times per day, tell your provider. How to use the buprenorphine patch Before placing the patch: Wash your hands well with soap and water. Make sure the patch is in its protective pouch and not damaged in any way before placing it on your skin. Only remove the patch from its pouch when you are ready to use it. Do not cut patches or use damaged patches. Do not shave before putting on a patch. Instead, clip hair as close to the skin as possible. Placing the patch: Remove the patch from its protective pouch. Remove the large portion of the protective liner and place the patch on your skin. Take off the rest of the protective layer and press the patch down firmly for at least 15 seconds. Make sure it sticks well, especially along the edges. You may use first aid tape or a see through adhesive dressing, such as Tegaderm, if needed. Avoid placing patches on damaged, oily, or irritated skin. Place the patch on 1 of these areas of your body: upper chest, upper back, upper arm, or the side of the chest. Washing your hands well with soap and water after placing the patch. Changing or removing patch: Change the patch every 7 days at about the same time of day. Rotate among at least 3 areas from the options shown above. If the patch falls off before 1 week of use or if you are instructed to take it off for a procedure, dispose of the patch safely (as explained below) and apply a new patch to a different area. Let your provider know this has happened. Change the new patch 1 week (7 days) after applying it. Wearing more than 1 patch: Do NOT wear more than 1 buprenorphine patch at a time unless instructed to do so by your provider. If needed, apply 2 patches side by side in the same area. When changing, remember to remove and replace both patches at the same time. While wearing buprenorphine patches Avoid heating the patch. Do not expose the patch to heat sources, such as a heating pad, electric blanket, sauna, or hot tub. Avoid tight coverings. Do not wear tight clothing over the patch. Do not drive or operate heavy machinery until you know how buprenorphine affects you. Avoid alcohol and products that contain alcohol to reduce the risk of overdosing. Call 911 if your loved one has any of these signs or symptoms of overdose, including: Not breathing or less than 1 breath every 5 seconds Pale and clammy skin Lips, fingers, or toes look vincent or blue in color Heart beat or pulse is slow or has stopped Snoring, gurgling, or choking sounds Does not respond to shaking or rubbing your knuckles over breast bone in center of chest Storing and disposing of buprenorphine patches Store patches away from children. Do not let them see you put patches on, or hear you call the patches Band-Aids, stickers, or tattoos . This could attract children and encourage them to mimic your actions. Safely get rid of used or unneeded patches by using the Patch-Disposal Unit or by folding the sticky sides together and flushing them down the toilet. The Patch-Disposal Unit can be thrown away in the regular trash. When to call your provider Let your provider know if you develop a fever that lasts more than 24 hours. Please contact your provider if any of the following symptoms are severe and do not improve: Itchiness, redness, or rash where the patch is applied Sleepiness/tiredness Constipation Nausea/vomiting Dizziness or headache long-term pain management If the use of this medicine is planned for your pain management, your provider may offer naloxone (Narcan). Naloxone is used to reverse the effects of opioids in the event of an accidental overdose or if too much medicine was taken. Naloxone is available in [place] without a prescription, including at [facility] locations. The pharmacy can provide training to you and your family on how to use this nasal spray. For more information about the use of naloxone, talk to your provider. Adapted from [employer] of [employer]. 2018 - March 10, 2023, [facility] This handout is for informational purposes only. Talk with your doctor or health care team if you have any questions about your care. For more health information call the Library for Health Information at [phone] or email: [email or web address]. documented in this encounter [facility] 04-28-2024 History of Present illness Narrative Tiny Marte seen in Medical Oncology clinic today. Nursing documentation of today's clinic visit reviewed. Message sent to [facility] to schedule pts next appts Tiny Marte received faslodex today. Patient tolerated and will return on 05/12/24. Pt ambulated out using her cane. Aware to call with any questions/concerns. documented in this encounter [facility] 04-28-2024 History of Present illness Narrative Tiny Marte was offered and declined a Medical Bit Setter for this exam/procedure/test 04/28/2024. Clinic to Infusion Handoff Report S - Patient coming from Exam to Infusion for treatment B - Clinic Nurse reviewed the following: Allergies yes Medications yes Vital signs within treatment parameters yes Patient accessed no A - Reviewed patient assessment and verified following: ECOG/Toxicity yes Ht/wt yes Labs within treatment parameters Yes If no, MD/ISHA notified. Ok to Treat order entered N/A If no, MD/ISHA notified. Treatment plans signed yes If no, MD/ISHA notified. R - Recommendations for plan of care: Describe any changes to plan of care: Faslodex today- no changes. Will continue on Ribo as planned. CXR before injection. Patient has AVS, completed check out, and discharged to infusion unit For questions, please call: Diana Day RN Images from the original note were not included. [facility] Clinic Note 04/28/2024 Patient: Tiny Marte SurgOn Provider: [facility] [employer] [facility] Chief Complaint: Recurrent stage IV HR+ IDC Chief Complaint Patient presents with Chemotherapy C1D15 Ribo check SUBJECTIVE Summary of History: Tiny Marte is a 63 y.o. female w/ recurrent stage IV HR+BC who presents to clinic today for follow up Brief Oncology History: -04/2019: First self-palpated a mass in the left breast -08/26/19 Mammo/US: Left: at 12:00 a 1.9 x 1.8 x 2.0 cm lobular hard hypochromic mass Right: 11:00 a 1.3 x 1.6 x 1.2 cm hypoechoic mass with acoustic shadowing. -08/31/19 Left Breast Bx 12:00 position -G2 IDC ER 80-90% NY <1%, HER 2 IHC: 0 -OncotypeDx RS of 49 off the biopsy sample at OSH -09/14/19 Right Breast Bx 11:00 position -Fat necrosis -09/30/19 MRI Breast: Enhancing mass at the site of palpable concern at the superior slightly medial left breast. Within the left breast at approximately the 11:00 position at the site of palpable concern there is a lobulated mass like area measuring 2.1 x 2.8 x 2.3 cm -10/11/19 Neoadjuvant TC x 4 cycles -01/25/20 Left lumpectomy & SLNBx: -1.5 cm G3 IDC, DCIS, margins negative, LN 0/2, ER 75%, NY 0%, HER 2 IHC: 0 -Residual disease: ypT1c ypN0 -03/08/20 Radiation therapy to left breast Total dose: 5005 cGy. Completed 04/04/2020 -06/05/20 Adjuvant capecitabine x 8 cycles. Completed 11/13/20. -10/2020: Initiated ET via anastrozole -09/29/23 Mammo: Bi-Rads 2 -01/2024: Noticed pain involving her right abdomen with no discernable cause. Acute onset. -01/23/24 Xray Ribs: Acute, minimally displaced fracture of lateral right 5th rib. Moderate right pleural effusion and mild basilar atelectasis or possibly infiltrates. -01/30/24 Right Hip Xray: There is no acute fracture or dislocation. No cortical erosion. There appears elongated oval-shaped lucent region measuring 3.9 x 1.4 cm in the proximal femoral shaft. Now concerns for metastatic cancer. -02/19/24 ECHO: EF 67% moderate to large pericardial effusion that was circumferential without any evidence of cardiac tamponade physiology -02/27/24 PET: Extensive skeletal metastatic deposits are appreciated. Metabolic activity in the posterior right pleura is noted and there appears to be some nodularity to the right pleura. Large right pleural effusion. -03/04/24 Pleural Fluid -Cytology showed metastatic breast cancer, ER expression present. Too little sample to perform HER2 testing or quantify ER expression. NY negative. -03/12/24: Dr He for second opinion. Recommended ribociclib + fulvestrant as next line therapy. Follows with local [facility], Dr. Mark Anthony Patton. However, wishing to transfer care to [facility]. Discussed clinical trial options, including HARMONIA & JESSIE-1, but elected for SOC. Plan to start C1D1 in 2 weeks. -04/14/24: C1D1 ribociclib + fulvestrant -04/28/24: C1D15 ribociclib + fulvestrant Interval History: Today, the patient reports feeling ok overall. She presents with her . -She has a lot of nasal congestion and slight blood in her mucous -She has been coughing frequently. -Her ribs, lower back, and left hip are in pain. Right hip pain has improved. Sneezing aggravates this pain -500-550 ml of fluids being drained. After her drain yesterday, her cough improved -She has been constipated on the treatment. Miralax keeps her bowel movements regular -She is more tired than she was before starting treatment -She has constant numbness in the fingertips of the first three digits in her left hand -Patient denies any recent fevers, chills, night sweats, headaches, tinnitus, hearing loss, sore throat, mouth sores, dysphagia, SOB, CP, N/V/D, dysuria, urinary difficulties, rash. ECOG 2 - Ambulatory and capable of all selfcare but unable to carry out any work activities. Up and about more than 50% of waking hours ROS: Review of Systems - Negative except that mentioned in HPI above Medical History: -The patient is post-menopausal. Occurred naturally around age 53. -Family cancer history significant for breast cancer in mother, diagnosed around 48. Negative for ovarian or uterine cancer. -The patient is a former smoker (1PPD x 30 years. Quit in 2009, though vaped for a short period afterwards. Rare alcohol use. 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 She lives in [place], [place]. -Past medical history summarized below: Past Medical History: Diagnosis Date Breast cancer 2019 History of radiation therapy 2020 left breast Arthritis Emphysema lung GERD (gastroesophageal reflux disease) History of chemotherapy Hypothyroidism Pericardial effusion OBJECTIVE Vitals: 04/28/24 1428 BP: 112/73 Pulse: 90 Resp: 16 Temp: 98.1 F (36.7 C) SpO2: 97% Wt Readings from Last 1 Encounters: 04/28/24 59.3 kg (130 lb 12.8 oz) Physical Exam: Gen: NAD. Sitting comfortably on the exam chair HEENT: MMM. OP clear. CV: RRR. S1 and S2 noted. No MRGs. Resp: No labored breathing. GI: Soft, NT, ND, BS+. No appreciable HSM. Ext: No RACHID. Pulses 2+ throughout. Skin: No bruising or rash on exposed skin Neuro: Alert and oriented. Moving all extremities spontaneously. Psych: Normal mood and affect. L Breast: S/p lumpectomy & SLNBx. No nipple changes, skin erythema, or palpable masses. R Breast: No nipple changes, skin erythema, or palpable masses. Lymph: No appreciable cervical or axillary lymphadenopathy Labs: CBC Lab Results Component Value Date WBC 3.80 (L) 04/28/2024 HGB 13.1 04/28/2024 HCT 41.1 04/28/2024 PLATELET 354 04/28/2024 MCV 92.2 04/28/2024 Diff No results found for: ANC , ABSNEUCNTME Lab Results Component Value Date RBCDISTRIBU 14.8 04/28/2024 GRNLOCYT 64.5 04/28/2024 LYMPHOCYT 28.4 04/28/2024 MONOCYTELEC 3.7 04/28/2024 EOSINOPHILS 2.6 04/28/2024 BASOPHILS 0.3 04/28/2024 LYMPHOCYTABS 1.08 (L) 04/28/2024 EOSINOPHLABS 0.10 04/28/2024 PLATELET 354 04/28/2024 MPV 8.5 04/28/2024 CMP Lab Results Component Value Date ALT 10 04/28/2024 AST 16 04/28/2024 ALKPHOS 119 04/28/2024 BILITOTAL 0.3 04/28/2024 ALBUMIN 4.0 04/28/2024 Lab Results Component Value Date SODIUM 135 04/28/2024 POTASSIUM 4.2 04/28/2024 CHLORIDE 101 04/28/2024 CO2 24 04/28/2024 BUN 18 04/28/2024 CREATSERUM 0.70 04/28/2024 GLUCOSE 99 04/28/2024 Imaging: See Oncology Summary above Pathology: See Oncology Summary above ASSESSMENT & PLAN Tiny Marte is a 63 y.o. female w/ recurrent stage IV HR+ HER2+BC who presents to clinic today for follow up Latest cancer stage: Stage 2 (cT2 cN0) 2019 -> ypT1c ypN0 -> Stage IV (dx 01/2024) Tumor features: L breast (01/25/20): Residual 1.5cm G3 IDC, negative margins, [address], ER 75%, [place] 0%, Her2-neg (IHC 0) R pleural fluid (03/04/24): Metastatic breast cancer, ER+, NY-, HER2 unknown (too little specimen). Genetics: Germline testing 10/2019: neg. Prior systemic therapies: TC x 4 (2019), capecitabine (1928-9800), anastrozole (1855-3797) Prior locoregional therapies: L lumpectomy & SLNBx (01/25/20) Current therapy: C1D1 ribociclib + fulvestrant 04/14/24 Future therapy: Zometa #Recurrent Metastatic HR+ Breast Cancer: -Prior h/o L-sided stage 2 (cT2 cN0) HR+ IDC in 2019 for which a neoadjuvant OncotypeDx test was sent, with a score of 49. Underwent NAC via TC x 4 cycles, then a L lumpectomy & SLNBx (01/25/20) showing residual 1.5cm G3 IDC w/ DCIS, negative margins, [address], ER 75%, NY 0%, HER2-neg (IHC 0). Completed radiation on 04/04/20, then finished capecitabine x 8 cycles on 11/13/20. -Started ET via anastrozole from 11/2020 to her metastatic recurrence date of 01/23/24 when an Xray detected a new R 5th rib fracture & R pleural effusion. -PET on 02/27/24 confirmed the R pleural effusion, R pleural nodules, and extensive bony lesions. -Underwent a R thora on 03/04/24 showing mBC. Unable to do full receptors, but appears ER+ NY-. R pleurx catheter placed 04/05 locally. -Discussed with her what it means to have metastatic breast cancer, including the inability to cure such cases. However, we have treatments available to help provide additional quality time. We expect the cancer to become resistant to the treatments we provide, so interval imaging is performed to assess for both treatment response & treatment resistance. Once the disease becomes resistant to current treatments or the treatments themselves are too toxic to manage, we transition to next line therapy. Each subsequent line of therapy is either less effective or more toxic in nature compared to prior lines. Eventually we reach a point of futility, at which goals of care need readdressed. -S/p open biopsy and prophylactic fixation of the right femur with Dr Chepe Chambers on 03/19/24 and will have radiation 05/10-05/14/24 -Post-menopausal at recurrent diagnosis and with an average functional status. Baseline symptoms of R hip/back pain & ORELLANA due to tumor burden. -Echo 04/09/24 with moderate pericardial effusion. -C1D1 ribociclib + fulvestrant 04/14/24 Recommendations: -Labs today reviewed and acceptable. Ok to proceed today with C1D15 ribociclib + fulvestrant. -Plan for radiation 05/10-05/14 to R proximal femur. This lines up with her off week -Plan to start zometa once we receive dental clearance. Provided dental edilberto form today -Ordering a Chest Xray today d/t persistent rib pain. No evidence of fracture noted on today's read. -Due to meet palliative medicine to help optimize symptom control. Sending tramadol script to bridge. Return in about 2 weeks (around 05/12/2024) for RTC as scheduled. Orders Placed This Encounter XR CHEST PA AND LATERAL 2 VIEWS CBC, EDIF, PLATELET COMPREHENSIVE METABOLIC PANEL MAGNESIUM PHOSPHATE, INORGANIC CBC AND ELECTRONIC DIFF ECG traMADol 50 MG tablet Documented by Enrico Sheth for Dr. Carlos He on 04/28/2024 at 4:00 PM. All medical record entries made by the Scribe were at my direction and personally dictated by me, Carlos He MD, I have reviewed the chart and agree that the record accurately reflects my personal performance of the history, physical exam, assessment and plan. Carlos He MD Oxygen Therapist of Internal Medicine Division of Medical Oncology [facility] Pager #[phone] documented in this encounter [facility] 04-28-2024 Instructions Dinaa Day RN - 04/28/2024 3:00 PM EST Images from the original note were not included. When will my phone call be returned? Our providers will do their best to answer your call quickly. You should expect a returned call within 24 hours. If you have an emergency, please call 911 or go to your local emergency department. When will my [employer] message be returned? Our providers will do their best to answer your questions quickly. However, there are certain times when you won t get a response. Our providers won t respond to messages on nights, weekends or holidays. [employer] messages are not for urgent issues, and you can expect a response within 3 business days. If you have an emergency, please call 911 or go to your local emergency department. A business day is Friday through Friday 8 a.m. to 4:30 p.m. When are my results released? Patients have access to most test results as soon as they are available. These results and notes could include sensitive information such as a cancer diagnosis. You always have the choice to wait to view your information in [employer] until you speak with your provider. When will my FMLA/Paperwork be returned? Please allow 7-10 business days for completion of FMLA/Paperwork to be returned. Patient Satisfaction Surveys: Your opinion matters! If you receive a patient satisfaction survey in the mail we would appreciate your thoughts. Please help us get better! Store controlled substances (for example - opioids/narcotics, certain stimulants, certain sedatives, etc.) in a locked cabinet or in an area only accessible to you. When you no longer need the controlled substances that have been prescribed for you, do NOT bring them to [facility]. We are NOT permitted under law to accept controlled substances from a patient for disposal. You may dispose of controlled substances, as well as other old or dggi-ydr-rmemswx and prescription medications, by one of the safe methods listed below: A drug take-back program - this is the best method to dispose of medications safely. You can locate the take-back program closest to you @ https://takebackday.ines.gov under the COLLECTION SITE HUMANITIES DEPARTMENT CHAIR tab. The [facility] Board of pharmacy homepage also has an RX Disposal Splunk Consultant tool @https://www.pharmacy.[place].gov/Co mpliance/DrugDisposal. If you cannot locate a drug take-back program, never dispose of medications down the sink or toilet. Instead, place the medication in a sealable storage bag and mix with damp coffee grounds, dirt, or cat litter, then seal the bag, and dispose of in your regular trash. If you have or unused cancer medication or hazardous drugs (this does not include Tamoxifen, Anastrozole, Letrozole or Exemestane), these may be potentially donated to our [facility] repository drug program and then given to other patients who are uninsured or underinsured. Ask your [facility] pharmacist about this program. documented in this encounter [facility] 04-21-2024 Note [place] Cardiology - [facility] Clinic Subjective Tiny Marte is a 63 y.o. year old female patient being seen for follow up echo performed 2 weeks ago. She was in the ED a few weeks prior for SOB and was transferred to [facility] for thoracentesis. She denies chest pain. Says her breathing is ok as long as she keeps up with her Pleurx catheter that was placed at [facility] in [place]. Family History Problem Relation Name Age of Onset Heart failure Mother Atrial fibrillation Mother Coronary artery disease Father Other (CABG) Father Social History Tobacco Use Smoking status: Former Types: Cigarettes Smokeless tobacco: Never Substance Use Topics Alcohol use: Yes Comment: occasionally HPI Visit of 03/03/2024: Tiny is seen as a new patient referred for pericardial effusion. She is a 63-year-old woman with history of breast cancer diagnosed 4 years ago status postlumpectomy, radiation therapy, chemotherapy intravenous and oral. Currently maintained on anastrozole. Recently she was investigated for worsening symptoms of shortness of breath. She was found to have right pleural effusion and a moderate to large pericardial effusion by echocardiography. She is seen today to determine further steps. She was evaluated by pulmonary and will be undergoing right thoracentesis tomorrow. She denies chest pain. No fevers or chills or other illnesses. No leg edema. Her exercise capacity is limited by her shortness of breath. Visit of 04/21/2024: She is seen in follow-up. Since last visit she underwent thoracentesis and placement of a Pleurx catheter. Her breathing has improved. She does not have dizziness or lightheadedness. Blood pressure is maintained. Follow-up echocardiogram on 04/08/2024 showed stable pericardial effusion. Review of Systems Cardiovascular: Positive for dyspnea on exertion. Respiratory: Positive for cough and shortness of breath. All other systems reviewed and are negative. Objective Visit Vitals BP 110/74 (BP Location: Right arm, Patient Position: Sitting) Pulse 100 Ht 1.626 m (5' 4 ) Wt 59.4 kg (131 lb) SpO2 99% BMI 22.49 kg/m??? Smoking Status Former BSA 1.64 m??? Physical Exam Constitutional: Appearance: She is well-developed. She is not ill-appearing. HENT: Head: Normocephalic and atraumatic. Nose: Nose normal. Eyes: General: No scleral icterus. Pupils: Pupils are equal, round, and reactive to light. Neck: Thyroid: No thyromegaly. Vascular: No JVD. Cardiovascular: Rate and Rhythm: Normal rate and regular rhythm. Pulses: Radial pulses are 2+ on the right side and 2+ on the left side. Heart sounds: Normal heart sounds. No murmur heard. No friction rub. No gallop. Pulmonary: Effort: Pulmonary effort is normal. No respiratory distress. Breath sounds: Normal breath sounds. No wheezing or rales. Chest: Chest wall: No tenderness. Abdominal: General: Bowel sounds are normal. There is no distension. Palpations: Abdomen is soft. Tenderness: There is no abdominal tenderness. Musculoskeletal: General: No swelling. Cervical back: Neck supple. Skin: General: Skin is warm and dry. Neurological: General: No focal deficit present. Mental Status: She is alert and oriented to person, place, and time. Psychiatric: Mood and Affect: Mood normal. Behavior: Behavior is cooperative. Judgment: Judgment normal. Allergies Allergies Allergen Reactions Codeine GI intolerance, Other and Nausea And Vomiting Medications Current Outpatient Medications: cholecalciferol (D3-5) 5,000 Units tablet, Take 3 tablets by mouth 1 (one) time each day at the same time., Disp: , Rfl: denosumab (Prolia) 60 mg/mL syringe, Inject 60 mg under the skin., Disp: , Rfl: famotidine (Pepcid) 20 mg tablet, Take 20 mg by mouth twice a day., Disp: , Rfl: Kisqali 600 mg/day (200 mg x 3) tablet chemo therapy pack, Take three 200 mg tablets (600 mg) by mouth once daily on days 1 through 21 of a 28 day cycle., Disp: , Rfl: levothyroxine (Synthroid, Levoxyl) 75 mcg tablet, Take 75 mcg by mouth., Disp: , Rfl: loratadine 10 mg capsule, Take 10 mg by mouth in the morning., Disp: , Rfl: magnesium 250 mg tablet, Take 250 mg by mouth., Disp: , Rfl: oxyCODONE (Roxicodone) 5 mg immediate release tablet, Take 1 tablet by mouth every 4 (four) hours., Disp: , Rfl: anastrozole (Arimidex) 1 mg chemo tablet, Take 1 mg by mouth in the morning, Disp: , Rfl: traMADol (Ultram) 50 mg tablet, Take by mouth., Disp: , Rfl: Recent Labs Blood testing 03/25/2024: Hemoglobin 10.5, platelets 467, BUN 18, creatinine 0.66, EGFR more than 60 LFTs normal, potassium 3.8. Blood testing 01/12/2024: Potassium 4.7, BUN 18, creatinine 0.59, triglycerides 89, cholesterol 187, LDL 127, HDL 42. Blood testing 11/13/2023: Hemoglobin 13.7, platelets 308, potassium 4.0, BUN 13, creatinine 0.7, EGFR more than 60, LFTs normal. Imaging and other tests Ec (more content not included)... [facility] 04-15-2024 History of Present illness Narrative [facility] OP RX OUTREACH ADVANCED: Shipping/Pickup: Patient has affirmed needing a refill of the following medications for Shipment (04/15) : Med Name: Keonsqali Pre-Verification/Specialty Assessment/Disease Mgt: Medication(s) Name: Ribociclib Lab Review: CBC w/diff Assessment type (Select either Initial or Re-Assessment): Initial Assessment Specialty Assessment Review: Name, Age, Sex Demographics Therapeutic Goals Health Problems/Diagnoses/Comorbidities Pertinent Medical History Adverse Effects with Enrolled (and related) Medications Recent Labs Medications (dose, route, frequency, and interactions) Allergies Dietary Requirements Patient Comprehension Appropriate Use Adherence Specialty Medication Management Mental Reasoning, Judgement, Orientation, and Memory Financial Resources Usual Environment Functional Limitations Emergency Contact(s) Person(s) responsible for care Care Plan Activities Completed: Created Assessment Findings: Primary Breast (2019) - TC x4 > XRT > capecitabine > anastrozole Metastatic Breast (2023) - ribo/fulvestrant Spoke with spouse. Understands dosing and treatment plan and storage requirements/expiration dates. Counseling: Counseling Topics Reviewed With Patient: Therapeutic rationale Doses and administration Duration of Therapy Timing of medications Possible adverse effects and management Safe handling, storage, and disposal Vaccinations Cost of medications and cost implications Pharmacy Contact Contact Info: Specialty ([place]) [phone] Shai [phone] [facility] [phone] Ximena [phone] Bedside Delivery ([facility]) [phone] documented in this encounter [facility] 04-14-2024 Instructions Ayla Mai RN - 04/14/2024 3:[address] Simulation Instructions You had a CT scan today. If you had IV contrast for your CT, make sure you drink 2-3 extra glasses of water this evening to help your kidneys flush the contrast from your blood. Your CT scan will help your doctor, the dosimetrists, and the physicists plan for your radiation treatment. You will leave today with a full schedule of all of your radiation appointments. If there is a time of day that works best for you for treatment, let your radiation therapist know during your CT so they can try to accommodate your schedule. Any changes in treatment times after your CT will need to be made by the therapists on your machine. Radiation treatments occur daily Friday through Friday. Normally, there are no treatments on weekends or holidays. Your doctor will tell you if you need treatment on a weekend or holiday. Your treatment will normally be in the same LINAC (treatment machine) each day. You can check the monitors in each waiting room when you come to see if your treatment machine is running on time or if there is a delay. Allow for about 45-60 minutes for your treatment each day. Dr. Martinez will see you Friday for your On Treatment Visit (OTV). Your physician along with your primary nurse will discuss symptom management and check to see how you are doing. . These visits are typically after your treatment time. If your treatment is after 5 pm, you may be asked to arrive before 5 pm to complete your OTV. The timing of your OTV does not change your treatment time on the LINAC. Allow for a longer visit on these days. If you have side effects or trouble related to your treatment in between your weekly OTVs, ask the therapists during your treatment to see a nurse and you can be scheduled for a nursing visit following treatment. The department validates parking, so make sure to ask for a ticket each day. This includes service loss control consultant parking. If you are being treated at the [facility], the parking garage is called [facility] at [address] [place] [address]. If you are being treated at [facility], we have a reserved parking lot to the west of the building. You will be given a parking pass to display on your dashboard to use this lot. You will be given a special wrist band today that you can use to check in for your treatments. You do not need to go to registration before each radiation treatment. If you have appointments with any other department at [facility], you must go to registration prior to those appointments. Please call the radiation clinic at [phone] with any questions or concerns. You can also contact your physician via My Chart with any non-urgent issues. My Chart messages are only reviewed during regular business hours, which are Friday-Friday 8 am to 5 pm. documented in this encounter [facility] 04-14-2024 History of Present illness Narrative Tiny Marte seen in Medical Oncology clinic today. Nursing documentation of today's clinic visit and ISBAR communication reviewed. Per ISBAR: Faslodex today. Will plan to start Ribo- EKG and labs completed. Xray on the way out today for pain to R ribs after coughing fit yesterday. Pleurex intact per pt. [phone] Messaged clinic nurse that orders not signed. [phone] Notified pt that awaiting orders to be signed and that clinical pharmacist needs to counselor aide her while here. [phone] faslodex signed. Message sent to [facility] Infusion Scheduling Pool to schedule patient for future appointments. Arrival message sent to pharmacy to release saline and premeds as indicated. Tiny Marte received Faslodex today. Patient tolerated and will return on 04/28/24. Patient received copy of After Visit Summary with appointment information. documented in this encounter [facility] 04-14-2024 History of Present illness Narrative Images from the original note were not included. [facility] Clinic Note 04/14/2024 Patient: Tiny Marte SurgOnc Provider: OS Plastics Provider: OS RadOnc Provider: OS Chief Complaint: Recurrent stage IV HR+ IDC Chief Complaint Patient presents with Chemotherapy C1D1 Ribo/Faslodex SUBJECTIVE Summary of History: Tiny Marte is a 63 y.o. female w/ recurrent stage IV HR+BC who presents to clinic today for follow up Brief Oncology History: -04/2019: First self-palpated a mass in the left breast -08/26/19 Mammo/US: Left: at 12:00 a 1.9 x 1.8 x 2.0 cm lobular hard hypochromic mass Right: 11:00 a 1.3 x 1.6 x 1.2 cm hypoechoic mass with acoustic shadowing. -08/31/19 Left Breast Bx 12:00 position -G2 IDC ER 80-90% NY <1%, HER 2 IHC: 0 -OncotypeDx RS of 49 off the biopsy sample at OSH -09/14/19 Right Breast Bx 11:00 position -Fat necrosis -09/30/19 MRI Breast: Enhancing mass at the site of palpable concern at the superior slightly medial left breast. Within the left breast at approximately the 11:00 position at the site of palpable concern there is a lobulated mass like area measuring 2.1 x 2.8 x 2.3 cm -10/11/19 Neoadjuvant TC x 4 cycles -01/25/20 Left lumpectomy & SLNBx: -1.5 cm G3 IDC, DCIS, margins negative, LN 0/2, ER 75%, NY 0%, HER 2 IHC: 0 -Residual disease: ypT1c ypN0 -03/08/20 Radiation therapy to left breast Total dose: 5005 cGy. Completed 04/04/2020 -06/05/20 Adjuvant capecitabine x 8 cycles. Completed 11/13/20. -10/2020: Initiated ET via anastrozole -09/29/23 Mammo: Bi-Rads 2 -01/2024: Noticed pain involving her right abdomen with no discernable cause. Acute onset. -01/23/24 Xray Ribs: Acute, minimally displaced fracture of lateral right 5th rib. Moderate right pleural effusion and mild basilar atelectasis or possibly infiltrates. -01/30/24 Right Hip Xray: There is no acute fracture or dislocation. No cortical erosion. There appears elongated oval-shaped lucent region measuring 3.9 x 1.4 cm in the proximal femoral shaft. Now concerns for metastatic cancer. -02/19/24 ECHO: EF 67% moderate to large pericardial effusion that was circumferential without any evidence of cardiac tamponade physiology -02/27/24 PET: Extensive skeletal metastatic deposits are appreciated. Metabolic activity in the posterior right pleura is noted and there appears to be some nodularity to the right pleura. Large right pleural effusion. -03/04/24 Pleural Fluid -Cytology showed metastatic breast cancer, ER expression present. Too little sample to perform HER2 testing or quantify ER expression. NY negative. -03/12/24: Dr He for second opinion. Recommended ribociclib + fulvestrant as next line therapy. [facility] Mark Anthony Patton. However, wishing to transfer care to [facility]. Discussed clinical trial options, including HARMONIA & JESSIE-1, but elected for SOC. Plan to start C1D1 in 2 weeks. -04/14/24: C1D1 ribociclib + fulvestrant Interval History: History of Present Illness The patient is a 63-year-old female who is here today for cycle 1 day 1 of ribociclib and fulvestrant. She is accompanied by her . She reports experiencing chest pain, rating it as 4 out of 10. She had a PleurX drain inserted approximately 1.5 weeks ago. During a recent drainage procedure, she experienced a coughing fit and now suspects she may have fractured a rib on her right side. She experiences a mild cough each time the drain is used. She has been using cough drops to manage her cough. She also reports pain in her right leg, which has improved since her surgery. She uses a walker for mobility and has not had any recent falls. Her shortness of breath has improved with the use of oxygen at home, which she uses at night. She has a cough but no other upper respiratory symptoms. Her energy levels have been consistent over the past few months, and she is able to care for herself at home. She has noticed a decrease in her appetite and hydration levels. She experienced nausea during her visit today but reports no bowel irregularities, numbness, or tingling. She reports no skin concerns or swelling. She feels emotional at times but feels well-supported. She is currently on Lovenox injections and has 9 doses remaining. She has a follow-up with a thoracic surgeon on 04/26/2024. ECOG 2 - Ambulatory and capable of all selfcare but unable to carry out any work activities. Up and about more than 50% of waking hours ROS: Review of Systems - Negative except that mentioned in HPI above Medical History: -The patient is post-menopausal. Occurred naturally around age 53. -Family cancer history significant for breast cancer in mother, diagnosed around 48. Negative for ovarian or uterine cancer. -The patient is a former smoker (1PPD x 30 years. Quit in 2009, though vaped for a short period afterwards. Rare alcohol use. 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 She lives in [place], [place]. -Past medical history summarized below: Past Medical History: Diagnosis Date Breast cancer 2019 History of radiation therapy 2019 left breast Arthritis Emphysema lung GERD (gastroesophageal reflux disease) History of chemotherapy Hypothyroidism Pericardial effusion OBJECTIVE Vitals: 04/14/24 1144 BP: 156/70 Pulse: 95 Resp: 20 Temp: 97.7 F (36.5 C) SpO2: 93% Wt Readings from Last 1 Encounters: 04/14/24 60.6 kg (133 lb 9.6 oz) Physical Exam: Gen: NAD. Sitting comfortably on the exam chair HEENT: MMM. OP clear. CV: RRR. S1 and S2 noted. No MRGs. Resp: No labored breathing. Dull breath sounds at the right lung base with crackles GI: Soft, NT, ND, BS+. No appreciable HSM. Ext: No RACHID. Pulses 2+ throughout. Skin: No bruising or rash on exposed skin Neuro: Alert and oriented. Moving all extremities spontaneously. Psych: Normal mood and affect. L Breast: S/p lumpectomy & SLNBx. No nipple changes, skin erythema, or palpable masses. R Breast: No nipple changes, skin erythema, or palpable masses. Lymph: No appreciable cervical or axillary lymphadenopathy Labs: CBC Lab Results Component Value Date WBC 5.47 04/14/2024 HGB 13.5 04/14/2024 HCT 42.6 04/14/2024 PLATELET 426 (H) 04/14/2024 MCV 92.4 04/14/2024 Diff No results found for: ANC , ABSNEUCNTME Lab Results Component Value Date RBCDISTRIBU 15.5 (H) 04/14/2024 GRNLOCYT 68.5 04/14/2024 LYMPHOCYT 23.0 04/14/2024 MONOCYTELEC 6.0 04/14/2024 EOSINOPHILS 1.5 04/14/2024 BASOPHILS 0.5 04/14/2024 LYMPHOCYTABS 1.26 04/14/2024 EOSINOPHLABS 0.08 04/14/2024 PLATELET 426 (H) 04/14/2024 MPV 8.6 04/14/2024 CMP Lab Results Component Value Date ALT 18 04/14/2024 AST 22 04/14/2024 ALKPHOS 133 (H) 04/14/2024 BILITOTAL 0.4 04/14/2024 ALBUMIN 4.1 04/14/2024 Lab Results Component Value Date SODIUM 138 04/14/2024 POTASSIUM 3.9 04/14/2024 CHLORIDE 103 04/14/2024 CO2 26 04/14/2024 BUN 13 04/14/2024 CREATSERUM 0.46 (L) 04/14/2024 GLUCOSE 108 (H) 04/14/2024 Imaging: See Oncology Summary above Pathology: See Oncology Summary above ASSESSMENT & PLAN Tiny Marte is a 63 y.o. female w/ recurrent stage IV HR+ HER2+BC who presents to clinic today for follow up Latest cancer stage: Stage 2 (cT2 cN0) 2019 -> ypT1c ypN0 -> Stage IV (dx 01/2024) Tumor features: L breast (01/25/20): Residual 1.5cm G3 IDC, negative margins, [address], ER 75%, NY 0%, Her2-neg (IHC 0) R pleural fluid (03/04/24): Metastatic breast cancer, ER+, NY-, HER2 unknown (too little specimen). Genetics: Germline testing 10/2019: neg. Prior systemic therapies: TC x 4 (2019), capecitabine (5165-1576), anastrozole (8289-9946) Prior locoregional therapies: L lumpectomy & SLNBx (01/25/20) Current therapy: C1D1 ribociclib + fulvestrant 04/14/24 Future therapy: Zometa #Recurrent Metastatic HR+ Breast Cancer: -Prior h/o L-sided stage 2 (cT2 cN0) HR+ IDC in 2019 for which a neoadjuvant OncotypeDx test was sent, with a score of 49. Underwent NAC via TC x 4 cycles, then a L lumpectomy & SLNBx (01/25/20) showing residual 1.5cm G3 IDC w/ DCIS, negative margins, [address], ER 75%, NY 0%, HER2-neg (IHC 0). Completed radiation on 04/04/20, then finished capecitabine x 8 cycles on 11/13/20. -Started ET via anastrozole from 11/2020 to her metastatic recurrence date of 01/23/24 when an Xray detected a new R 5th rib fracture & R pleural effusion. -PET on 02/27/24 confirmed the R pleural effusion, R pleural nodules, and extensive bony lesions. -Underwent a R thora on 03/04/24 showing mBC. Unable to do full receptors, but appears ER+ NY-. R pleurx catheter placed 04/05 locally. -Discussed with her what it means to have metastatic breast cancer, including the inability to cure such cases. However, we have treatments available to help provide additional quality time. We expect the cancer to become resistant to the treatments we provide, so interval imaging is performed to assess for both treatment response & treatment resistance. Once the disease becomes resistant to current treatments or the treatments themselves are too toxic to manage, we transition to next line therapy. Each subsequent line of therapy is either less effective or more toxic in nature compared to prior lines. Eventually we reach a point of futility, at which goals of care need readdressed. -S/p open biopsy and prophylactic fixation of the right femur with Dr Chepe Chambers on 03/19/24 and will have radiation 05/10-05/14/24 -Post-menopausal at recurrent diagnosis and with an average functional status. Baseline symptoms of R hip/back pain & ORELLANA due to tumor burden. -Echo 04/09/24 with moderate pericardial effusion. -C1D1 ribociclib + fulvestrant 04/14/24 Recommendations: -Labs today reviewed and acceptable. Ok to proceed today with C1D1 ribociclib + fulvestrant. -Right rib x-rays d/t new onset pain -Sent prescriptions for tessalon for her cough and prochlorperazine for nausea -Plan for radiation 05/10-05/14 to R proximal femur. -Plan to start zometa once we receive dental clearance. Orders Placed This Encounter XR RIBS RIGHT 2 VIEWS CBC, EDIF, PLATELET COMPREHENSIVE METABOLIC PANEL MAGNESIUM PHOSPHATE, INORGANIC CBC AND ELECTRONIC DIFF ECG Prochlorperazine 10 MG tablet benzonatate 100 MG capsule Return in 2 weeks (on 04/28/2024) for follow up with trevor He prior & fulvestrant. Schedule appt in 4 weeks with Davide (afternoon). Davide Tatum PA-C Rema [facility] Breast Medical Oncology P. [phone] F. [phone] Pager. [phone] Tiny Marte was offered and declined a Medical Bit Setter for this exam/procedure/test 04/14/2024. Clinic to Infusion Handoff Report S - Patient coming from Exam to Infusion for treatment B - Clinic Nurse reviewed the following: Allergies yes Medications yes Vital signs within treatment parameters yes Patient accessed no A - Reviewed patient assessment and verified following: ECOG/Toxicity yes Ht/wt yes Labs within treatment parameters Yes If no, MD/ISHA notified. Ok to Treat order entered N/A If no, MD/ISHA notified. Treatment plans signed yes If no, MD/ISHA notified. R - Recommendations for plan of care: Describe any changes to plan of care: Faslodex today. Will plan to start Ribo- EKG and labs completed. Xray on the way out today for pain to R ribs after coughing fit yesterday. Pleurex intact per pt. Patient has AVS, completed check out, and discharged to infusion unit For questions, please call: Diana Day RN documented in this encounter [facility] 04-14-2024 Instructions Diana Day RN - 04/14/2024 11:30 AM EST Images from the original note were not included. When will my phone call be returned? Our providers will do their best to answer your call quickly. You should expect a returned call within 24 hours. If you have an emergency, please call 911 or go to your local emergency department. When will my [employer] message be returned? Our providers will do their best to answer your questions quickly. However, there are certain times when you won t get a response. Our providers won t respond to messages on nights, weekends or holidays. [employer] messages are not for urgent issues, and you can expect a response within 3 business days. If you have an emergency, please call 911 or go to your local emergency department. A business day is Friday through Friday 8 a.m. to 4:30 p.m. When are my results released? Patients have access to most test results as soon as they are available. These results and notes could include sensitive information such as a cancer diagnosis. You always have the choice to wait to view your information in [employer] until you speak with your provider. When will my FMLA/Paperwork be returned? Please allow 7-10 business days for completion of FMLA/Paperwork to be returned. Patient Satisfaction Surveys: Your opinion matters! If you receive a patient satisfaction survey in the mail we would appreciate your thoughts. Please help us get better! Store controlled substances (for example - opioids/narcotics, certain stimulants, certain sedatives, etc.) in a locked cabinet or in an area only accessible to you. When you no longer need the controlled substances that have been prescribed for you, do NOT bring them to [facility]. We are NOT permitted under law to accept controlled substances from a patient for disposal. You may dispose of controlled substances, as well as other old or atxj-gyh-tmdapmn and prescription medications, by one of the safe methods listed below: A drug take-back program - this is the best method to dispose of medications safely. You can locate the take-back program closest to you @ https://takebackday.ines.gov under the COLLECTION SITE HUMANITIES DEPARTMENT CHAIR tab. The [facility] Board of pharmacy homepage also has an RX Disposal Splunk Consultant tool @https://www.pharmacy.[place].gov/Co mpliance/DrugDisposal. If you cannot locate a drug take-back program, never dispose of medications down the sink or toilet. Instead, place the medication in a sealable storage bag and mix with damp coffee grounds, dirt, or cat litter, then seal the bag, and dispose of in your regular trash. If you have or unused cancer medication or hazardous drugs (this does not include Tamoxifen, Anastrozole, Letrozole or Exemestane), these may be potentially donated to our [facility] repository drug program and then given to other patients who are uninsured or underinsured. Ask your [facility] pharmacist about this program. The following attachments cannot be sent through Care Everywhere.Ribociclib (Cruz Villarreal) (Kittitian)Fulvestrant (Cruz Villarreal) (Kittitian)documented in this encounter [facility] 04-14-2024 History of Present illness Narrative Orthopaedic Oncology Post-Operative Clinic Visit: Tiny Marte is a 63 y.o. female with a history of metastatic breast ca who returns to the office approximately 2 weeks post op from open biopsy and prophylactic IMN to right femur. DOS 03/19/2024 Interval History: She reports pain is improved and pain is controlled with pain medication. She denies wound drainage, fevers, chills. Recently underwent placement of pleurx catheter for malignant plural effusion. Since discharge he was also seen by radiation oncology. Has plans for CT simulation to the right femur today. Oncology History Oncologic Diagnosis: HR+ breast adenocarcinoma Medical Oncologist: Dr Carlos He Current Systemic Therapy: Plan to start robociclib and fulvestrant in 2 wks Radiation Oncologist: Dr Martinez Prior Radiation Therapy: Breast XRT, 50 Gy Surgeon: Dr Suleman Carmona Prior Oncologic Surgeries: Partial mastectomy L breast [place] LN bx L axilla Exam: BP 159/83 (BP Location: Right arm, BP Position: Sitting) Pulse 85 Temp 98.5 F (36.9 C) (Oral) Wt 61 kg (134 lb 8 oz) SpO2 96% BMI 23.83 kg/m Smoking Status Former General: alert, oriented, no acute distress Respiratory: non-labored, symmetric chest rise Musculoskeletal: Gait: antalgic RLE: Incision is healing well, clean, dry, no drainage. Radiographic imaging studies: I personally and independently reviewed and interpreted the following imaging studies. XR R-femur 04/14/24: Demonstrating appropriate implant positioning. No evidence of fracture or hardware failure. Pathology: Clinical History Preop Diagnosis: Impending pathologic fracture. Medical History: Breast cancer with history of radiation therapy. Hypothyroidism. History of chemotherapy. Pericardial effusion. Gastroesophageal reflux disease. Pathologic Diagnosis A. Right proximal femur bone lesion, excision: Metastatic carcinoma. Note: Immunostains for AE1/3 highlight tumor cells. B. Right proximal femur bone lesion #2, excision: Metastatic carcinoma, consistent with a breast primary (see note). Invasive tumor: ER negative (<1%), NY negative (<1%), HER2 negative (1+) by manual quantification at [facility]. Note: A panel of immunostains was performed and the results demonstrate tumor cells are positive for CK7 and GATA3, suggesting a breast primary. Impression: Tiny Marte is a 63 y.o. female s/p prophylactic fixation of the right femur on 03/19/2024. Overall recovering well from surgery. Plan: - recommend radiation therapy as discussed to right femur. Wound has sufficiently healed to proceed with systemic therapy - Continue any current medications. - Wound care discussed. - Pt is to increase activities as tolerated. - Plain film x-rays of left femur in 3 months . All of the patient's questions were answered and she expressed understanding of the plan. The patient was instructed to call should she experience worsening symptoms or have any issues/questions prior to her follow-up appointment. Chepe Chambers MD Oxygen Therapist Department of Orthopaedics Division of Musculoskeletal Oncology documented in this encounter [facility] 04-14-2024 Instructions Marsha Boyd RN - 04/14/2024 9:15 AM EST Marsha MONTEZ, RN, OCN Musculoskeletal Oncology Outpatient clinic nurse for : MD Dr. Jason Robles MD Dr. Joel Mayerson, MD [facility] Department of Orthopaedics 5th Floor, Room [address] [place] [address] (this number is covered by the answering service after hours, weekends and holidays) documented in this encounter [facility] 04-09-2024 History of Present illness Narrative Nurse Note: Review of Systems Constitutional: Positive for fatigue. Negative for chills and fever. HENT: Negative for hearing loss and tinnitus. Eyes: Negative for visual disturbance. Respiratory: Positive for cough and shortness of breath. Recent thoracentesis and pleurx drain placed 3 days ago Cardiovascular: Negative for chest pain and leg swelling. Gastrointestinal: Negative for constipation, diarrhea, nausea and vomiting. Genitourinary: Negative for difficulty urinating. Musculoskeletal: Positive for back pain and gait problem. Negative for neck pain. Lumbar spine pain. Rates 4/10. Constant ache, hard to get comfortable. Patient in wheelchair today. Skin: Negative for rash. Neurological: Negative for dizziness, tremors, seizures, speech difficulty, weakness, light-headedness, numbness and headaches. Hematological: Does not bruise/bleed easily. On levonox currently post operatively Psychiatric/Behavioral: Negative for confusion and decreased concentration. The patient is not nervous/anxious. Nursing Assessment: Physical Exam [facility] Neurosurgery Oncology Clinic Dr. Adria De Leon MD Oxygen Therapist, Department of Neurosurgery [facility] [place] [id number] NEW PATIENT VISIT NOTES IKylah LICONA Tiny Marte is a 63 y.o. female that presents to [facility] Neurosurgery Oncology Clinic for consultation. She is a known case metastatic breast cancer to bone and pleural cavity. She is referred to us for evaluation of a recently discovered L3 spinous process metastasis. According to the patient, she has always been complaining of chronic lower back pain. She gave it a score of 4/10 on a daily average. Worse with prolonged sitting or prolonged maintenance a similar position that would he is by standing up and walking. She was recently being evaluated for a right proximal femur metastasis and underwent ORIF back in March of this year. Workup including MRI of the lumbar spine discovered the L3 spinous process lesion. She does not have any symptoms down the legs. She is managing her back pain with the same pain medications she has for the right hip/femur pain. She does not have any saddle anesthesia or sphincteric control dysfunction. She does not smoke, but she quit smoking 12 years ago. No prior history spine surgeries or epidural pain injections or radiation to the spine. Patient's 10 points ROS was positive for : Constitutional: Positive for fatigue. Negative for chills and fever. Respiratory: Positive for cough and shortness of breath. Recent thoracentesis and pleurx drain placed 3 days ago Musculoskeletal: Positive for back pain and gait problem. Negative for neck pain. Med/Hem Oncologist: Carlos He MD Radiation Oncologist: Mal Martinez MD II. PAST MEDICAL / SURGICAL HISTORY Past Medical History: Diagnosis Date Breast cancer GERD (gastroesophageal reflux disease) History of chemotherapy History of radiation therapy 2019 left breast Hypothyroidism Pericardial effusion Past Surgical History: Procedure Laterality Date TREATMENT PROPHYLACTIC FEMUR Right 03/19/2024 Laterality: Right; Surgeon: Chepe Chambers MD; Location: [facility] MA[facility] OR BX BONE OPEN Right 03/19/2024 Laterality: Right; Surgeon: Chepe Chambers MD; Location: [facility] MAIN OR BREAST LUMPECTOMY Left 01/25/2020 BREAST BIOPSY Right 09/14/2019 BREAST BIOPSY Left 08/31/2019 CHOLECYSTECTOMY Social History Socioeconomic History Marital status: Spouse name: Not on file Number of children: Not on file Years of education: Not on file Highest education level: Not on file Occupational History Not on file Tobacco Use Smoking status: Former Current packs/day: 0.00 Average packs/day: 1 pack/day for 34.0 years (34.0 ttl pk-yrs) Types: Cigarettes Start date: 06/02/1977 Quit date: 06/02/2011 Years since quittin.8 Smokeless tobacco: Never Vaping Use Vaping status: Former Substance and Sexual Activity Alcohol use: Yes Comment: social drinking Drug use: Never Sexual activity: Not on file Other Topics Concern Not on file Social History Narrative Not on file Social Determinants of Health Financial Resource Strain: Not on file Food Insecurity: No Food Insecurity (04/06/2024) Received from [facility] Hunger Vital Sign Worried About Running Out of Food in the Last Year: Never true Ran Out of Food in the Last Year: Never true Transportation Needs: No Transportation Needs (04/06/2024) Received from [facility] PRAPARE - Transportation Lack of Transportation (Medical): No Lack of Transportation (Non-Medical): No Physical Activity: Not on file Stress: Not on file Social Connections: Not on file Intimate Partner Violence: Patient Unable To Answer (03/18/2024) Humiliation, Afraid, Rape, and Kick questionnaire Fear of Current or Ex-Partner: Patient unable to answer Emotionally Abused: Patient unable to answer Physically Abused: Patient unable to answer Sexually Abused: Patient unable to answer Housing Stability: Low Risk (04/06/2024) Received from [facility] Housing Stability Vital Sign Unable to Pay for Housing in the Last Year: No Number of Times Moved in the Last Year: 1 Homeless in the Last Year: No Family History Problem Relation Age of Onset Breast Cancer Mother 48 ALLERGIES: Codeine and Wound dressing adhesive MEDICATIONS: Current Outpatient Medications Medication Sig anastrozole 1 MG tablet Take 1 tablet by mouth Daily (with dinner). calcium carbonate 1250 (500 Ca) MG tablet Take 1,000 mg by mouth daily. denosumab (Prolia) 60 MG/ML Solution Prefilled Syringe injection Inject 1 mL under the skin. Enoxaparin Sodium 40 MG/0.4ML injection Inject 0.4 mL under the skin daily. faMOTIdine 20 MG tablet Take 1 tablet by mouth daily. ibuprofen 800 MG tablet Take 1 tablet by mouth Every 8 hours as needed. Levothyroxine 75 MCG tablet Take 1 tablet by mouth. Loratadine 10 MG tablet Take by mouth. MAGNESIUM PO Take 420 mg by mouth daily. Multiple Vitamins-Minerals (OCUVITE-LUTEIN PO) Take by mouth. Shady Side-3 Fatty Acids (Fish Oil) [address] Take by mouth. Polyethylene glycol 17 g Pack packet Take 1 packet by mouth daily. traMADol 50 MG tablet Take 1 tablet by mouth every 6 hours as needed for Mild Pain, Moderate Pain or Severe Pain. Vitamin D3 125 MCG (5000 UT) per tablet Take 3 tablets by mouth. Cyclobenzaprine 5 MG tablet Take 1 tablet by mouth 2 times daily as needed for Muscle spasms for up to 7 days. oxyCODONE 5 MG tablet Take 1 tablet by mouth every 4 hours as needed for Moderate Pain or Severe Pain for up to 7 days. III. Physical Exam General: Patient is well appearing and in no apparent distress Pulm: Respirations are regular and unlabored Patient is oriented to person, place and time. Speech is fluent, non-dysarthric. Neuro: Eyes open spontaneously Oriented to person, place, and time Face symmetric Upper Extremities: deltoid bicep tricep Wrist ext Computer Forensics Examiner Hand IO right 5/5 5/5 5/5 5/5 5/5 5/5 left 5/5 5/5 5/5 5/5 5/5 5/5 Lower extremities: Hip flex Quad Hamstr Tracy flex Plantar flex EHL toes right 5/5 5/5 5/5 5/5 5/5 5/5 5/5 left 5/5 5/5 5/5 5/5 5/5 5/5 5/5 Reflexes: 3+ in biceps, brachioradialis and patella Guerrero's: Positive on the left side Ankle Clonus: Negative Equivocal plantar reflexes bilaterally Sensation: grossly intact throughout IV. IMAGING XR: 03/17/2024: Lytic lesion of the L3 spinous process. MRI lumbar spine: 03/18/2024: Couple of marrow placing lesions in the lumbar spine and visualized pelvic bones, related to metastatic disease. Minimal extraosseous extension into the paraspinal soft tissues from the L3 spinous process lesion. Extraosseous extension from the bilateral iliac bone metastatic lesions involving the adjacent soft tissues. No epidural tumor. Pertinent Chemo/Immunotherapy Regimen: Prior systemic therapies: TC x 4 (2019), capecitabine ([id number]), anastrozole ([id number]) Prior locoregional therapies: L lumpectomy & SLNBx (01/25/20) Current therapy: Anastrozole Future therapy: Ribociclib + fulvestrant, zometa Pertinent Radiation Therapy: -03/08/20 Radiation therapy to left breast Total dose: 5005 cGy. V. IMPRESSION AND PLAN OF CARE Tiny Marte is a 63 y.o. female that presents today to [facility] for a consultation I had extensive conversation with the patient in the office. We reviewed all available imaging studies. Her was present for the encounter. She presents with history of metastatic breast cancer and a lytic L3 spinous process lesion. 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 Denies any obvious neck pain, myelopathy, gait ataxia. We discussed natural history and various indications for intervention. We discussed the risks, benefits, alternatives. We reviewed her MRI and discussed the role for surgery and radiation in the management of her spine disease. At this time given that she was minimal symptoms from we will plan to get scoliosis x-rays today. We will also order MRIs cervical and thoracic spine with and without contrast to evaluate for metastatic disease. Her PET does suggest there may be lesions in her cervical spine. We will touch base after the MRIs to discuss next steps. Adria De Leon MD documented in this encounter [facility] 04-09-2024 Instructions Connie Riley RN - 04/09/2024 10:30 AM EST [facility] Neurosurgeons: Dr. Adria De Leon Nurse Practitioners: Clari Espitia, MSN, INTERNAL AFFAIRS COMMANDER-BODY FITTER Clinic Nurses: TC Sanchez, RN TC Maria, RN [facility] Located in [facility], Ground floor [address] [address] Neurosurgical Office Information: The Neurosurgery clinic and scheduling staff can be reached at [phone]. Please call if you develop new or worsening symptoms, also with any additional questions regarding your visit today or if you need to contact the doctor. You will speak with a materials scheduler, who will take a message and forward it to the clinical team. The primary nurse will return your call within 24 hours, assess your problem, consult with your medical team, and give direction on what should be done. We are not able to accommodate walk-in appointments. This is to provide the best possible care we can to all our patients. For any questions, comments, or concerns during after-hours (past 4:30pm M-F), weekends, and/or during a holiday please call [phone] and speak with the after-hours service. You will be connected to the neurosurgery resident retail client solutions consultant. New or worsening neurological symptoms can include, but are not limited to: weakness, confusion, difficulty walking, vision/hearing/speech changes, seizures or extremity tremors, and persistent headaches. If it is an emergency you will need to go to your local ER. Ask them to fax your records to us so that we can update our team, fax number [phone]. If you experience seizures affecting the whole body, with or with out loss of consciousness, or stroke like symptoms please call 911 and get evaluated at local Emergency Room. The neurosurgery team typically does not refill medications. Please reach out to your primary care physician for any post-hospital or post- surgical medication refill requests. Family Medical Leave paperwork is available through your human resources department. Please allow 10-14 business days for completion of paperwork from our office. Documentation can be faxed to [phone]. Your feedback is important to our team. You may receive a survey in the mail following today's appointment. We would appreciate if you could take a few minutes to complete the survey and return it in the envelope provided. Your response will be confidential and used to enhance patient care and address areas of opportunity. Thank you The Oncology Distress Screening, or Patient-Reported Outcomes Measurement Information System (PROMIS) questionnaire, is a validated tool used for recording self-reported measures of global, physical, mental and social health for adults in the general population and those living with a chronic condition. You will receive this questionnaire via [employer]. Please complete so your providers at [facility] can better help you! documented in this encounter [facility] 04-09-2024 Miscellaneous Notes Addended by: ADRIA DE LEON on: 04/09/2024 01:44 PM Modules accepted: Orders documented in this encounter [facility] 04-09-2024 Note Addended by: ADRIA GILES on: 04/09/2024 01:44 PM Modules accepted: Orders [facility] 04-07-2024 History of Present illness Narrative Discharge instructions provided to patient and spouse. Verbalized understanding of follow up appointments, diet, activity, plurex drain care, medications and reasons to return to ED/call physician. All questions answered. Copy of discharge instructions provided. Assisted into wheelchair and taken to personal car. Denies further needs. Pain gone. No SOB. Ready for d/c Chest tube opened and to water seal Pt started c/o chest discomfort, per order suction stopped chest tube clamped for 15 minutes Portable cxr completed, chest tube hooked to suction -20 per order, draining yellow drainage 10ml Lidocaine 1% injected at sx site by Dr. Pérez documented in this encounter [facility] 04-06-2024 Hospital Discharge instructions Hawk Pérez MD - 04/06/2024 12:52 PM EST No driving day procedure. No driving if taking prescription pain medication. May shower. Record drainage amount each time it drains and bring this information to your follow-up appointment. The following attachments cannot be sent through Care Everywhere.Indwelling Peritoneal or Pleural Catheter: Drainage (Kittitian)documented in this encounter [facility] 04-01-2024 History of Present illness Narrative Images from the original note were not included. Tiny Marte presents today for follow up on her pleural effusion. She did undergo thoracentesis after her office visit. Cytology did return with evidence consistent with metastatic breast cancer. I did discuss this over the phone with her. She did undergo evaluation by Oncology. Since her last office visit she did undergo ivan placement her femur given that she did have metastatic disease noted there as well. After that intervention she was noted to have some hypoxia. She was placed on oxygen during her hospitalization, but was not discharged home with this in place. After discharge from hospital in [facility] the patient did continue with some complaints of shortness of breath. She ultimately presented to the hospital at [facility]. She was found to pleural effusion. She was then transferred to [facility] and did undergo thoracentesis. It was recommended at that time that she be evaluated for possible PleurX catheter placement. She has since been referred to thoracic surgery. She does have a scheduled appointment with them next week. She also has follow-up appointments in [place] with for orthopedic oncology as well as surgical Oncology. She states that she does note some shortness of breath. Her states that her breathing does limit some of her symptoms, but was not to the point where she needs to be drained at this time. She is hoping to be able to make it to her evaluation by thoracic surgery so that a PleurX catheter can be placed. She denies any current complaints of chest pain, palpitations, fevers, chills, sweats, or recent unintentional weight changes. She denies any other complaints at this time. Allergies: Allergies Allergen Reactions Codeine GI intolerance and Nausea And Vomiting Wound Dressing Adhesive Itching and Rash Medications: Current Outpatient Medications: acetaminophen (Tylenol) 500 MG tablet, Take 500 mg by mouth every 6 (six) hours if needed for mild pain or moderate pain, Disp: , Rfl: anastrozole (Arimidex) 1 MG chemo tablet, Take 1 tablet by mouth Daily., Disp: , Rfl: calcium carbonate (Os-Xavi) 1250 (500 Ca) MG tablet, Take 1,000 mg by mouth Daily, Disp: , Rfl: chlorhexidine (Peridex) 0.12 % solution, RINSE WITH 1/2 OUNCE BY MOUTH AFTER BREAKFAST AND BEFORE BEDTIME, Disp: , Rfl: cholecalciferol (D-5000) 5,000 Units tablet, Take 10,000 Units by mouth Daily, Disp: , Rfl: cyclobenzaprine (Flexeril) 5 MG tablet, Take 5 mg by mouth 2 (two) times a day as needed, Disp: , Rfl: denosumab (Prolia) 60 MG/ML solution prefilled syringe, Inject 60 mg under the skin, Disp: , Rfl: Enoxaparin Sodium 40 MG/0.4ML solution prefilled syringe, Inject 40 mg under the skin in the morning., Disp: , Rfl: ibuprofen 800 MG tablet, Take 1 tablet (800 mg) by mouth every 8 (eight) hours if needed for moderate pain, Disp: 90 tablet, Rfl: 0 levothyroxine (Synthroid, Levoxyl) 75 MCG tablet, Take 1 tablet (75 mcg) by mouth in the morning. Take before meals., Disp: 90 tablet, Rfl: 1 loratadine (Claritin) 10 MG tablet, Take by mouth, Disp: , Rfl: MAGNESIUM PO, Take 400 mg by mouth, Disp: , Rfl: Multiple Vitamins-Minerals (OCUVITE EXTRA PO), Take by mouth, Disp: , Rfl: Shady Side-3 Fatty Acids (Fish Oil) 1200 MG capsule delayed-release, Take by mouth, Disp: , Rfl: oxyCODONE (Roxicodone) 5 MG immediate release tablet, Take 5 mg by mouth every 4 (four) hours if needed, Disp: , Rfl: polyethylene glycol, PEG, 3350 (Miralax) 17 g packet, Take 17 g by mouth in the morning., Disp: , Rfl: traMADol (Ultram) 50 MG tablet, Take by mouth, Disp: , Rfl: famotidine (Pepcid) 20 MG tablet, Take 1 tablet (20 mg) by mouth Daily, Disp: 90 tablet, Rfl: 1 fexofenadine ODT (Maricruz ODT) 30 MG disintegrating tablet, Take 30 mg by mouth Daily (Patient not taking: Reported on 04/01/2024), Disp: , Rfl: tiZANidine (Zanaflex) 4 MG tablet, Take 1 tablet (4 mg) by mouth as needed at bedtime for muscle spasms for up to 10 days, Disp: 10 tablet, Rfl: 0 Past Medical History: Past Medical History: Diagnosis Date Abnormal CT of the chest 02/16/2024 Acquired hypothyroidism ([facility]) 05/06/2023 Breast carcinoma metastatic, pleura ([facility]) 03/12/2024 Gastroesophageal reflux disease without esophagitis 05/06/2023 Hypoxia 03/25/2024 Impending pathologic fracture 03/17/2024 Invasive ductal carcinoma of left breast ([facility]) 10/07/2019 Malignant neoplasm of unspecified site of left female breast ([facility]) 10/07/2019 Left Breast Bx 12:00 position Grade 2, Invasive Ductal Carcinoma ER 80-90% NY <1%, HER 2 IHC: 0 08/31/19 Oncotype Dx Score: 49 10/11/19 Neoadjuvant Docetaxel/Cytoxan x 4 cycles 01/25/20 Left Breast Lumpectomy w/ LSLNBx 1.5 cm, Grade 3, Invasive Ductal Carcinoma and DCIS, Margins negative, LN 0/2 ER 75%, NY 0%, HER 2 IHC: 0 pT1c pN0 03/08/20 Radiation therapy to left breast Tota Social History: Social History Tobacco Use Smoking status: Former Current packs/day: 0.00 Types: Cigarettes Quit date: 2011 Years since quittin. Smokeless tobacco: Never Substance Use Topics Alcohol use: Not Currently Comment: coffee and tea 2 cups daily Vitals: BP 128/85 (BP Location: Left arm, Patient Position: Sitting) Pulse 105 Ht 5' 4 Wt 138 lb SpO2 91% BMI 23.69 kg/m Exam: Heart: regular rate Lungs: clear to auscultation bilaterally, no wheezes/rales/rhonchi, no resp distress Extremities: no edema noted, no visible rashes Neuro: alert, oriented x3 Imaging Reviewed: Discharge summary from [facility] reviewed Images and report chest x-ray from March 25, 2024 reviewed-- large right subpulmonic pleural effusion and adjacent atelectasis Ultrasound thoracentesis report from 03/25/2024 reviewed-- 900 mL of clear straw-colored fluid removed Assessment/Plan: Diagnoses and all orders for this visit: Malignant pleural effusion Malignant pleural effusion -- at this time we did discuss the findings of her pleural fluid analysis as well as her repeat thoracentesis. I do agree that she would benefit from PleurX catheter placement. She states she is scheduled to see thoracic surgery next . However she was hoping to be able to be evaluated by them sooner. We did discuss that he generally sees patients in [place] and operates in [place]. I did reach out to thoracic surgery who stated that he could likely see her sooner in the office with the idea that potentially she could have her PleurX catheter placed sooner as well. Once this is placed she will be able to drain this at home. Once she starts therapy and her pleural fluid reaccumulation does decrease this can ultimately be removed. Questions were answered at this time. Patient is agreeable to evaluation by thoracic surgery. She is hopeful to be able to get in early next week with them. She will follow here on an as-needed basis as her course progresses. Follow up if symptoms worsen or fail to improve, for malignant pleural effusion. Shahid Manzano DO documented in this encounter [facility] 03-29-2024 History of Present illness Narrative RADIATION ONCOLOGY NEW PATIENT VISIT Referring Physician: Malick Teresa Patient Name: Tiny Marte Provider: Mal Martinez MD : 1960 Date: 03/29/2024 Reason for visit: Tiny Marte is a 63 y.o. post-menopausal female with a history of Stage 2 (cT2cN0; ypT1c ypN0) left breast grade 3 IDC treated with lumpectomy & SLNBx, TC x 4 cycles, and radiation (5040 cGy) at outside hospital 04/2020. 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 She underwent right femur fixation and open biopsy with Dr. Chambers on 03/19/24. She presents today as a new patient for evaluation and discussion of palliative treatment recommendations in relation to her symptoms of right hip/leg pain and low back pain. She has additional mets to lumbar spine and pleural fluid. Oncologic History: -04/2019: First self-palpated a mass in the left breast -08/26/19 Mammo/US: Left: at 12:00 a 1.9 x 1.8 x 2.0 cm lobular hard hypochromic mass Right: 11:00 a 1.3 x 1.6 x 1.2 cm hypoechoic mass with acoustic shadowing. -08/31/19 Left Breast Bx 12:00 position -G2 IDC ER 80-90% NY <1%, HER 2 IHC: 0 -OncotypeDx RS of 49 off the biopsy sample at OSH -09/14/19 Right Breast Bx 11:00 position -Fat necrosis -09/30/19 MRI Breast: Enhancing mass at the site of palpable concern at the superior slightly medial left breast. Within the left breast at approximately the 11:00 position at the site of palpable concern there is a lobulated mass like area measuring 2.1 x 2.8 x 2.3 cm -10/11/19 Neoadjuvant TC x 4 cycles -01/25/20 Left lumpectomy & SLNBx: -1.5 cm G3 IDC, DCIS, margins negative, LN 0/2, ER 75%, NY 0%, HER 2 IHC: 0 -Residual disease: ypT1c ypN0 -03/08/20 Radiation therapy to left breast Total dose: 5005 cGy. Completed 04/04/2020 -06/05/20 Adjuvant capecitabine x 8 cycles. Completed 11/13/20. -10/2020: Initiated ET via anastrozole -09/29/23 Mammo: Bi-Rads 2 -01/2024: Noticed pain involving her right abdomen with no discernable cause. Acute onset. -01/23/24 Xray Ribs: Acute, minimally displaced fracture of lateral right 5th rib. Moderate right pleural effusion and mild basilar atelectasis or possibly infiltrates. -01/30/24 Right Hip Xray: There is no acute fracture or dislocation. No cortical erosion. There appears elongated oval-shaped lucent region measuring 3.9 x 1.4 cm in the proximal femoral shaft. Now concerns for metastatic cancer. -02/19/24 ECHO: EF 67% moderate to large pericardial effusion that was circumferential without any evidence of cardiac tamponade physiology -02/27/24 OSH PET: Extensive skeletal metastatic deposits are appreciated. Metabolic activity in the posterior right pleura is noted and there appears to be some nodularity to the right pleura. Large right pleural effusion. -03/04/24 Pleural Fluid -Cytology showed metastatic breast cancer, ER expression present. Too little sample to perform HER2 testing or quantify ER expression. NY negative. -03/12/24: Dr He for second opinion/[facility] to establish care. Recommended ribociclib + fulvestrant as next line therapy. Discussed clinical trial options, including HARMONIA & JESSIE-1, but elected for SOC. Plan to start C1D1 in 04/2024 after surgery. -03/17/24: Ortho Oncology consult Dr. Chambers: plan for surgical intervention to femur -03/18/24: MRI Lumbar: Couple of marrow placing lesions in the lumbar spine and visualized pelvic bones, related to metastatic disease. Minimal extraosseous extension into the paraspinal soft tissues from the L3 spinous process lesion. Extraosseous extension from the bilateral iliac bone metastatic lesions involving the adjacent soft tissues. No epidural tumor. No central canal stenosis in the lumbar spine. Mildly enlarged retroperitoneal and right peridiaphragmatic lymph nodes. -03/19/24: Dr. Chambers RIGHT FEMUR prophylactic fixation and open biopsy. A. Right proximal femur bone lesion, excision: Metastatic carcinoma. Note: Immunostains for AE1/3 highlight tumor cells. B. Right proximal femur bone lesion #2, excision: Metastatic carcinoma, consistent with a breast primary (see note). Invasive tumor: ER negative (<1%), NY negative (<1%), HER2 negative (1+) by manual quantification at [facility]. -03/29/24: Rad Onc Dr. Martinez Anticipated: 04/14 start Ribociclib + fulvestrant Tiny presents with her . She lives in [place], [place] about ~2 hours away. She reports mild fatigue and 5 pain. Right hip pain complaints on and off for a couple years, then 01/2024 it became more consistent and bothersome. With activity/walking pain is 5/10; rotating NSAID and Tylenol consistently. This makes it tolerable as long as she uses a walker. When she is sitting/at rest there is no pain. Denies numbness/tingling, muscle weakness. Notices some 4/10 low back pain the past month. Upcoming neuro surg consultation. Discomfort between right shoulder blade and spine, notices the discomfort when she lays down. Fluid in lung drained twice, ORELLANA. Has not used O2 since discharge this time. On-going non-productive cough. Continues on anastrozole. Denies wheezing, chest pain, palpitations, abdominal pain, headaches, vision changes, N/V, seizures, numbness/tingling, focal weakness, ataxia, falls. No other complaints. Radiation History: History of prior radiation: yes left chest wall History of auto-immune disease: no History of connective tissue disorder: no Pacemaker: no Able to lay flat: yes Transportation available: yes ROS: A full ROS was queried and is negative other than HPI and RN note. RN note and history reviewed with the patient. Past Medical History: Past Medical History: Diagnosis Date Breast cancer GERD (gastroesophageal reflux disease) History of chemotherapy History of radiation therapy 2019 left breast Hypothyroidism Pericardial effusion Past Surgical History: Past Surgical History: Procedure Laterality Date TREATMENT PROPHYLACTIC FEMUR Right 03/19/2024 Laterality: Right; Surgeon: Chepe Chambers MD; Location: [facility] MAIN OR BX BONE OPEN Right 03/19/2024 Laterality: Right; Surgeon: Chepe Chambers MD; Location: [facility] OR BREAST LUMPECTOMY Left 01/25/2020 BREAST BIOPSY Right 09/14/2019 BREAST BIOPSY Left 08/31/2019 CHOLECYSTECTOMY Meds and allergies reviewed as part of EHR. Family History: Family History Problem Relation Age of Onset Breast Cancer Mother 48 Performance Status: Performance status: Karnofsky scale 80 (ECOG grade 1) Performs normal activity with effort; some signs & symptoms of disease Physical Exam: Vital Signs: Wt 63.2 kg (139 lb 6.4 oz) BMI 24.69 kg/m Smoking Status Former Constitutional: Well developed, well nourished female, who looks her stated age of 63 y.o.. No acute distress. HEENT: Head: Normocephalic and atraumatic. Neck: Supple, with no lymphadenopathy. Pulmonary: Normal respiratory effort. Chest: Deferred in the context of metastatic disease. Lymphatic: Deferred Neurological: Conscious, alert and oriented. No focal neurologic deficit. Gait is hesitant, using walker. Skin: Skin is warm and dry Abdomen: Non-distended Pathology/Lab Results: All pertinent lab and pathology results were reviewed. See HPI above. Imaging: All pertinent imaging results were reviewed. See HPI above. Assessment and Plan: Tiny Marte is a 63 y.o. post-menopausal female with Stage 2 (cT2cN0; ypT1c ypN0) left breast grade 3 IDC treated with lumpectomy & SLNBx, TC x 4 cycles, and radiation (5040 cGy) at [facility] 04/2020. 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 She underwent right femur fixation and open biopsy with Dr. Chambers on 03/19/24. We discussed the natural history and general treatment paradigm for her disease. Please see attending attestation for more detail. Specifically, we reviewed the practicalities of radiation treatment, the treatment planning process, and the typical radiation treatment course, including potential early and late toxicities. We explained that the purpose of radiation therapy in this circumstance will be to improve quality of life by minimizing the symptoms being caused by her disease, and that this treatment will not be curative in intent. The process for planning a radiation course, including the need for CT simulation, placement of tattoos, generation of a virtual radiation therapy plan from the acquired CT images, and the need for verification of the computer generated plan prior to beginning treatment, was explained. We reviewed with patient the acute side effects of treatment and the risk potential for late complications. We explained that treatment side effects may experience include, but are not limited to, skin erythema, fatigue, and a temporary increase in pain at the treatment location. The temporary nature of these symptoms was explained and the average timeline for their resolution was given. We did also discuss that there is a risk for permanent complications from radiation therapy. Tiny Marte's questions were answered to their satisfaction. We spent approximately 60 minutes in consultation, of which 45 were spent counseling the patient. Please reach out to us with any questions or concerns should they arise. This was a shared visit with Dr. Martinez. Please see his attestation for further information as to assessment/plan. SHEKHAR [facility] Breast Radiation Oncology [phone] Attending Attestation I saw and independently examined this patient. I discussed my findings and the therapeutic plan with SHEKHAR Leong. I agree with the history, physical examination, and medical decisions as outlined. In brief, Tiny Marte is a 63 y.o. post-menopausal female with a history of Stage 2 (cT2cN0; ypT1c ypN0) left breast grade 3 IDC treated with lumpectomy & SLNBx, TC x 4 cycles, and radiation (5040 cGy) at [facility] 04/2020. 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 She underwent right femur fixation and open biopsy with Dr. Chambers on 03/19/24. She will be starting CDK 4-6 inhibitor and fulvestrant with Dr. He on 04/14/24. She's also having mild (3-4/10) pain at the level of the lumbar spine and SI joint that can be elicited with palpation, taking only tylenol and advil for pain. She is pending neurosurgical evaluation for her lumbar spinal disease, which has been evaluated with MRI that did not show any epidural extension. I'd recommend paliative RT to the fixated right femur to prevent recurrence. I discussed that my preference for her mildly symptomatic lesions in the lumbar spine and SI joints is to observe because she is starting a new systemic therapy which may result in resolution of her pain. We discussed that these can be added to the treatment field if she becomes more symptomatic prior to simulation. Simulation to be scheduled 04/14/24 with anticipated treatment start 05/05/24, which I expect to be her first off week from CDK 4-6 inhibitor, but will confirm with Dr. He and his team. Consent for treatment obtained today. Thank you for allowing me to participate in the management and care of your patient. If I may answer any questions in the interim, please do not hesitate to contact me at any time. Mal Martinez MD Oxygen Therapist Department of Radiation Oncology Breast Cancer (New patient visit for discussion of radiation therapy for metastatic breast cancer.) The patient resides with her in [place], [place]. Patient reports it is a couple hours drive to get to [facility]. The patient does have available transportation. Implantable Devices: No Pain Assessment: Presence of Pain: reports pain/discomfort Pain Location: hip, right Pain Management Interventions: declines intervention DVPRS: Rest: 0- no pain DVPRS: Activity: 5- moderate pain Pain Frequency: intermittent Pain Quality: aching Factors That Aggravate Pain: movement, activity Factors That Relieve Pain: medications, over the counter (OTC) (alternating 800 mg ibuprofen and 1000mg Tylenol q6 hours) Patient Concerns: None at this time Patient Handouts: None Tiny Marte was offered and declined a Medical Bit Setter for this exam/procedure/test 03/29/2024. Report given to SHEKHAR Leong RN documented in this encounter [facility] 03-29-2024 Instructions Mal Martinez MD - 03/29/2024 8:30 AM EDT Your Radiation Oncology Team Doctor: Mal Martinez MD Advanced Practice Provider: SHEKHAR Leong Primary Nurses: EMELINA RoseN, RN; Rito, EMELINAN, RN; EMELINA SmallwoodN, RN We are available to take calls at [phone] Friday-Friday 8:00am-4:30pm. Please allow 24 hours for non-urgent return phone calls and [employer] messages. During non-business hours and holidays, phone calls will be managed by after-hours [facility] RN's. Please allow at least 10 business days for your team to complete any paperwork. When requesting medication refills that our team prescribed for you, please try to provide as much notice when possible (5 days) in order to ensure that you do not run out of medication. TODAY'S SUMMARY - The main treatment of metastatic breast cancer is systemic therapy (endocrine therapy, chemotherapy, anti-HER2 therapy, etc). - We are currently planning to treat your right femur where you had the surgery. - We can also treat your right SI joint and lumbar spine where you are currently having mild pain. I'm optimistic that systemic therapy will result in a response that will make that treatment unnecessary, so we are planning to hold off for now - You'll let us know if that pain becomes more intense, and we can include those areas in this course if needed. - Treatments like radiation and surgery are generally reserved for situations in which the cancer is causing a symptom, such as pain. - Radiation therapy is especially effective for reducing pain from cancer in the bone. - The typical course of radiation is 1, 5, or 10 treatments. - The next step would be a planning session in the treatment position. This involves a CT scan. - Radiation would then start about a week later. - Please call or send a [employer] message with any questions or concerns prior to your next visit. - Scheduling: Return for CT simulation 04/14/24, with plans to start treatment around 05/05/24 Dr. Mal Martinez MD & Austin Nielsen APRN-[facility] Radiation Oncology [phone] documented in this encounter [facility] 03-26-2024 Progress note Note Date/Time March 26, 2024 12:13pm [facility] [address] [place] [address] Event Note Signed Patient: Tiny Marte MR#: [id number] : 1960 Acct:[id number] Age/Sex: 63 / F Adm Date: 4 Loc: Room: [address] [place] [address] Type: ADM INOo Attending Dr: Ginny Soriano MD Copies to: Ginny Soriano MD NO FAMILY PHYSICIAN~ Status Event Note Event Note DATE OF EVENT: 03/26/24 TIME OF EVENT: 12:12 EVENT DETAILS: Patient was admitted after midnight please refer to H&P for details regarding her presentation. On examination patient on 2 L oxygen and endorses shortness of breath on exertion and laying down. Denies fever or chills but mentioned having dry cough. Pulmonary service has been consulted regarding large pleural effusion on right. She did undergo thoracentesis by Dr. Manzano around 3 weeks ago. TIME W/PATIENT (# MINS): 15 Documented By: Ginny Soriano MD 03/26/24 1211 Signed By: <Electronically signed by Ginny Soriano MD> 03/26/24 1213 [facility] Work Phone: 1(671) 456-340010-25-2024 History and physical note Author Black Benitez [facility] March 26, 2024 1:28am Note Date/Time March 26, 2024 1 :27am [facility] [address] [place] [address] Hospitalist H&P Signed Patient: Tiny Marte MR#: [id number] : 1960 Acct:[id number] Age/Sex: 63 / F Adm Date: 4 Loc: Room: [address] [place] [address] Type: ADM IN Attending Dr: Black Benitez MD Copies to: Black Benitez MD NO FAMILY PHYSICIAN~ HPI DATE OF EXAMINATION: 03/26/24 CHIEF COMPLAINT: Pleural Effusion HISTORY OF PRESENT ILLNESS: 63-year-old female with history of breast cancer with mets to the lung and bone who presents to the emergency department at [facility] for shortness of breath of 3 to 4-day duration. She was seen by pulmonary at the beginning of this month for pleural effusion and had a thoracentesis performed. A CT angio of the chest was done at the other facility and it was negative for PE but showed a large right-sided pleural effusion with compression atelectasis and no lymphadenopathy. 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 Labs at the other facility were within normal limits. She is hemodynamically stable and is currently on 2 L of supplemental oxygen. Of note she was recently admitted to [facility] in [place] for evaluation of lesion in her right femur and had a ivan placed prophylactically toprevent pathological fracture. She was discharged 4 days ago and was noted to have nocturnal hypoxemia. Other than the shortness of breath and pain at the surgical site, she denies anyfever, chills, chest pain, nausea or vomiting, other respiratory symptoms. Review of Systems Review of Systems All other systems reviewed & are negative unless noted below or in HPI [facility] Medical History (Updated 03/26/24 @ 01:24 by Black Benitez MD) Right femoral fracture Ivan placed in femur 03/19/24 Pleural effusion Metastasis to lung Metastasis to bone Breast cancer, left breast Acid reflux Osteoporosis Hypothyroid Surgical History (Updated 03/26/24 @ 00:55 by Candis Anaya LPN) History of thoracentesis History of lumpectomy of left breast Social History Smoking Status: Never smoker Substance Use Type: None Meds Medications and Allergies Allergies adhesive tape Allergy (Verified 04/16/18 08:13) Rash codeine Adverse Reaction (Verified 04/16/18 08:13) Nausea Home Medications levothyroxine 50 mcg tablet 75 mcg PO QAM hypothyroidism 03/31/18 [History Confirmed 03/26/24] anastrozole 1 mg tablet 1 mg PO DAILY 03/26/24 [History Confirmed 03/26/24] calcium 500 mg tablet 1,000 mg PO DAILY 03/26/24 [History Confirmed 03/26/24] cholecalciferol (vitamin D3) 125 mcg (5,000 unit) tablet (Vitamin D3) 125 mcg PODAILY 03/26/24 [History Confirmed 03/26/24] denosumab 60 mg/mL subcutaneous syringe (Prolia) 60 mg subcut [id number] 03/26/24 [History Confirmed 03/26/24] enoxaparin 40 mg/0.4 mL subcutaneous syringe 40 mg subcut DAILY 03/26/24 [History Confirmed 03/26/24] famotidine 20 mg tablet 20 mg PO DAILY 03/26/24 [History Confirmed 03/26/24] ibuprofen 800 mg tablet 800 mg PO .Q8 PRN pain 03/26/24 [History Confirmed 03/26/24] loratadine 10 mg tablet (Allergy Relief (loratadine)) 10 mg PO QAM 03/26/24 [History Confirmed 03/26/24] magnesium 200 mg tablet 400 mg PO DAILY 03/26/24 [History Confirmed 03/26/24] omega 6-azf-sgg-fish oil 1,000 mg (120 mg-180 mg) capsule (Fish Oil) 1 cap PO DAILY 03/26/24 [History Confirmed 03/26/24] vit C-vit H-bubpbx-lsubcfhp capsule 1 cap PO DAILY 03/26/24 [History Confirmed 03/26/24] Exam Physical Exam Vital Signs: Temp Pulse Resp BP Pulse Ox O2 Del Method O2 Flow Rate 98.5 F 88 18 131/84 99 Nasal Cannula 2 03/25/24 23:51 03/25/24 23:51 03/25/24 23:51 03/25/24 23:51 03/25/24 23:51 03/26/24 00:04 03/26/24 00:04 Const General: cooperative, healthy appearing and comfortable Nutritional Appearance: average body habitus Orientation: alert, awake and oriented x3 HEENT Head: normal to inspection Eyes General: appearance normal, both eyes and all related structures Pupils: PERRL Neck Neck: normal visual inspection Resp Effort & Inspection: normal respiratory effort Other: Breath sounds on the right up to the apex. Cardio Jugular venous pressure: no JVD Palpation: normal PMI Rate: regular rate Rhythm: regular rhythm Heart Sounds: S1 normal GI Inspection: normal to inspection Skin General: no rashes or lesions noted Neuro General: patient alert, patient awake and patient oriented x3 Extrem General: normal to inspection Psych Appearance: grossly normal Assessment & Plan Assessment/Plan (1) Breast cancer, left breast: (2) Metastasis to bone: (3) Pleural effusion: (4) Metastasis to lung: Plan -Monitor on MedSurg. -Consult pulmonary for thoracentesis. -O2 supplementation to maintain O2 sat better than 90%. -Continue home meds. -DVT prophylaxis-SCDs -GI prophylaxis-Pepcid She is full code. Hopefully after the thoracentesis, if she is clinically stable, she can be discharged home IP vs OBS Justification Based on differential dx, clinical care plan, and risk of adverse events, if untreated, in my clinical judgement this patient requires an acute care setting as: OBSERVATION because of an expectation of an under 2 midnight stay. Estimated length of stay (# of days): 2 Documented By: Black Benitez MD 012 Signed By: <Electronically signed by Black Benitez MD> 03/26/24 0128 [facility] Work Phone: 1(942) 717-637910-16-2024 History of Present illness Narrative* Eric Tovar MD - 03/17/2024 11:00 AM EDT Orthopaedic Oncology Initial Office Visit Chief Complaint: Right thigh pain with subtrochanteric bone lesion HPI: Tiny Marte is a 63 y.o. female referred by Dr. Abdi Crawford for evaluation of the above complaint. In brief, she has a history of breast cancer diagnosed in 2019. She underwent neoadjuvant chemotherapy, left lumpectomy and sentinel lymph node biopsy, with adjuvant radiation therapy (50 Gy completed 04/04/2020). She subsequently in remission until December of this year at which point she began having right abdomen pain and was appreciate to have a pathological fracture of her right 5th rib. Further workup in that time demonstrated widespread metastatic disease including a sizable lytic lesion of her right proximal femur. She was thus referred to Dr. Chambers for further evaluation and management. Reports that her right thigh has been hurting for several months. It has been worsening. It is exacerbated with ambulating and any sort of physical activity and relieved with rest. Characterized as deep and sharp. Centered about the groin and mid thigh and does not radiate. Denies numbness, weakness, fever, chills. Endorses pain in her low back but denies pain elsewhere. Oncology History Oncologic Diagnosis: HR+ breast adenocarcinoma Medical Oncologist: Dr Carlos He Current Systemic Therapy: Plan to start robociclib and fulvestrant in 2 wks Radiation Oncologist: Dr Martinez Prior Radiation Therapy: Breast XRT, 50 Gy Surgeon: Dr Suleman Carmona Prior Oncologic Surgeries: Partial mastectomy L breast [place] LN bx L axilla Operative Risk Assessment Prior History of DVT: denies Prior complications with anesthesia: denies Review of Symptoms: A complete review of systems has been completed and is negative except for what is noted in the HPI. Past Medical History: Diagnosis Date Breast cancer GERD (gastroesophageal reflux disease) History of chemotherapy History of radiation therapy Hypothyroidism Pericardial effusion Past Surgical History: Procedure Laterality Date BREAST LUMPECTOMY Left 01/25/2020 BREAST BIOPSY Right 09/14/2019 BREAST BIOPSY Left 08/31/2019 CHOLECYSTECTOMY Allergies Allergen Reactions Codeine Nausea and Vomiting Wound Dressing Adhesive Itching and Rash Outpatient Medications Prior to Visit Medication Sig Dispense Refill anastrozole 1 MG tablet Take 1 tablet by mouth Daily (with dinner). calcium carbonate 1250 (500 Ca) MG tablet Take 1,000 mg by mouth daily. denosumab (Prolia) 60 MG/ML Solution Prefilled Syringe injection Inject 1 mL under the skin. faMOTIdine 20 MG tablet Take 1 tablet by mouth 2 times daily. ibuprofen 800 MG tablet Take 1 tablet by mouth Every 8 hours as needed. Levothyroxine 75 MCG tablet Take 1 tablet by mouth. Loratadine 10 MG tablet Take by mouth. MAGNESIUM PO Take 250 mg by mouth. Multiple Vitamins-Minerals (OCUVITE-LUTEIN PO) Take by mouth. [place]-3 Fatty Acids (Fish Oil) [address] Take by mouth. traMADol 50 MG tablet Take 1 tablet by mouth every 6 hours as needed for Mild Pain, Moderate Pain or Severe Pain. Vitamin D3 125 MCG (5000 UT) per tablet Take 3 tablets by mouth. No facility-administered medications prior to visit. Social History Socioeconomic History Marital status: Spouse name: Not on file Number of children: Not on file Years of education: Not on file Highest education level: Not on file Occupational History Not on file Tobacco Use Smoking status: Former Current packs/day: 0.00 Average packs/day: 1 pack/day for 34.0 years (34.0 ttl pk-yrs) Types: Cigarettes Start date: 06/02/1977 Quit date: 06/02/2011 Years since quittin.8 Smokeless tobacco: Never Vaping Use Vaping status: Former Substance and Sexual Activity Alcohol use: Yes Comment: social drinking Drug use: Never Sexual activity: Not on file Other Topics Concern Not on file Social History Narrative Not on file Social Determinants of Health Financial Resource Strain: Not on file Food Insecurity: Not on file Transportation Needs: Not on file Physical Activity: Not on file Stress: Not on file Social Connections: Not on file Intimate Partner Violence: Not on file Housing Stability: Not on file Family History Problem Relation Age of Onset Breast Cancer Mother 48 Physical Exam BP 174/84 (BP Location: Right arm, BP Position: Sitting) Pulse 83 Temp 98.1 F (36.7 C) (Oral) Resp 16 Ht 1.6 m (5' 3 ) Wt 63.7 kg (140 lb 8 oz) SpO2 94% BMI 24.89 kg/m Smoking Status Former Body mass index is 24.89 kg/m . General appearance: alert, cooperative, appears stated age Lungs: Non-labored, symmetric chest rise Neurologic: Grossly normal Extremities: BLE: Skin intact. No TTP. Sensation intact to light touch in saphenous, sural, superficial and deepperoneal, and tibial nerve distributions. FROM hip/knee/ankle. Motor intact to tibialis anterior, gastroc-soleus complex, EHL and FHL. WWP. Imaging Review: Imaging studies independently reviewed/interpreted: X-ray bilateral femur and pelvis 03/17/2024 demonstrate lytic lesion of the right subtrochanteric region with endosteal scalloping. Size is greater than 2/3 of the bone diameter. There are also several much smaller lytic lesions of the bilateral femoral cortices. Whole-body nuclear PET scan 02/27/24 demonstrates involvement of the posterior elements of the lumbar spine and right iliac wing/SI joint. Redemonstration of right proximal femur avid lesion. Impression/Plan: Tiny Marte is a 63 y.o. female with widespread metastatic breast cancer including right proximal femur bone lesion with functional pain. Had an extensive discussion with the patient and her regarding findings and treatment options. Discussed that given her radiographic appearance of the lesion in conjunction with the degree of her functional pain in her right thigh, she is at a significantly elevated risk for pathologic fracture of the right subtrochanteric femur. We discussed thatfracture is a challenging complication to deal with as far as treatment and healing or concern. Discussed that given her current risk our recommendation would be for prophylactic fixation of her right femur. Discussed risks, benefits, and alternatives at length. After discussion of the procedure the patient expressed understanding and wishes to proceed. We discussed that we would like to proceed in a timely manner so that we can delay her systemic therapy initiation as minimally as possible. To that end we will place a direct admission request and hope to perform her surgery tomorrow or Lv. Eric Tovar MD Musculoskeletal Oncology Fellow Orthopaedic Oncology Attending Attestation: I personally reviewed the history, examined the patient, and reviewed the radiographic imaging studies today with the fellow. I discussed the findings and therapeutic plan with the fellow and the patient. I personally reviewed and edited the above fellow note and agree with the history, physical examination, imaging interpretation, and medical decisions as outlined in the fellow's dictated note. Chepe Chambers MD Oxygen Therapist Department of Orthopaedics Division of Musculoskeletal Oncology * Marsha Boyd RN - 03/17/2024 11:00 AM EDT I = Introduction of yourself and your role in the patient s care: Marsha Boyd [facility] S = Situation (A concise statement of the problem): right femur impending femur fracture B =Background (pertinent and brief information related to the situation): hx of newly dx met breastcancer A = Assessment: (Analysis and considerations of options - what you found/think): right hip pain R = Recommendation: (Action requested/recommended - what you want): admit from clinic for impendingfemur fracture , plan to add on for surgery tomorrow if gen casey clears, has pleural effusion , on RA, [place]B to [place] [id number], bed ready. [facility] Inst[facility]* Patient Instructions* Marsha Boyd RN - 03/17/2024 11:00 AM EDT Marsha MONTEZ, RN, OCN Musculoskeletal Oncology Outpatient clinic nurse for : MD Dr. Jason Robles MD Dr. Joel Mayerson, MD [facility] Department of Orthopaedics 5th Floor, [place] [address] (this number is covered by the answering service after hours, weekends and holidays) [facility] History of Present illness Narrative* Kenia Pressley RN - 03/12/2024 1:40 PM EDT Patient offered a medical snowboard instructor for sensitive exam. Pt declined. * Carlos He MD - 03/12/2024 1:40 PM EDT Images from the original note were not included. [facility] Clinic Note 03/12/2024 Patient: Tiny Marte SurgOnc Provider: OS Plastics Provider: MAAME RadMaria Teresa Provider: OS Chief Complaint: Recurrent stage IV HR+ IDC Chief Complaint Patient presents with New Patient SUBJECTIVE Summary of History: Tiny Marte is a 63 y.o. female w/ recurrent stage IV HR+BC who presents to clinic today for a second opinion Brief Oncology History: -04/2019: First self-palpated a mass in the left breast -08/26/19 Mammo/US: Left: at 12:00 a 1.9 x 1.8 x 2.0 cm lobular hard hypochromic mass Right: 11:00 a 1.3 x 1.6 x 1.2 cm hypoechoic mass with acoustic shadowing. -08/31/19 Left Breast Bx 12:00 position -G2 IDC ER 80-90% [place] <1%, HER 2 IHC: 0 -OncotypeDx RS of 49 off the biopsy sample at OSH -09/14/19 Right Breast Bx 11:00 position -Fat necrosis -09/30/19 MRI Breast: Enhancing mass at the site of palpable concern at the superior slightly medial left breast. Within the left breast at approximately the 11:00 position at the site of palpable concern there is a lobulated mass like area measuring 2.1 x 2.8 x 2.3 cm -10/11/19 Neoadjuvant TC x 4 cycles -01/25/20 Left lumpectomy & SLNBx: -1.5 cm G3 IDC, DCIS, margins negative, LN 0/2, ER 75%, NY 0%, HER 2 IHC: 0 -Residual disease: ypT1c ypN0 -03/08/20 Radiation therapy to left breast Total dose: 5005 cGy. Completed 04/04/2020 -06/05/20 Adjuvant capecitabine x 8 cycles. Completed 11/13/20. -10/2020: Initiated ET via anastrozole -09/29/23 Mammo: Bi-Rads 2 -01/2024: Noticed pain involving her right abdomen with no discernable cause. Acute onset. -01/23/24 Xray Ribs: Acute, minimally displaced fracture of lateral right 5th rib. Moderate right pleural effusion and mild basilar atelectasis or possibly infiltrates. -01/30/24 Right Hip Xray: There is no acute fracture or dislocation. No cortical erosion. There appears elongated oval-shaped lucent region measuring 3.9 x 1.4 cm in the proximal femoral shaft. Now concerns for metastatic cancer. -02/19/24 ECHO: EF 67% moderate to large pericardial effusion that was circumferential without any evidence of cardiac tamponade physiology -02/27/24 PET: Extensive skeletal metastatic deposits are appreciated. Metabolic activity in the posterior right pleura is noted and there appears to be some nodularity to the right pleura. Large right pleural effusion. -03/04/24 Pleural Fluid -Cytology showed metastatic breast cancer, ER expression present. Too little sample to perform [id number] or quantify ER expression. [place] negative. -03/12/24: Dr He for second opinion. Recommended ribociclib + fulvestrant as next line therapy. Follows with local Med[facility], Dr. Mark Anthony Patton. However, wishing to transfer care to [facility]. Discussed clinical trial options, including HARMONIA & JESSIE-1, but elected for SOC. Plan to start C1D1 in 2 weeks. Interval History: -Today, the patient reports feeling well overall. She presents with her , Garrett. -Has 2/10 pain in right hip and leg. Taking tramadol and ibuprofen to treat. Ibuprofen works betterat managing the pain. Meeting with both RadOnc & Ortho soon as well. -Slight dyspnea with moderate exertion -Patient denies any recent fevers, chills, night sweats, headaches, cough, sore throat, mouth sores, dysphagia, CP, N/V/C/D, dysuria, urinary difficulties, rash, or peripheral neuropathy. -ECOG 2 based on today's discussion. ROS: Review of Systems - Negative except that mentioned in HPI above Medical History: -The patient is post-menopausal. Occurred naturally around age 53. -Family cancer history significant for breast cancer in mother, diagnosed around 48. Negative for ovarian or uterine cancer. -The patient is a former smoker (1PPD x 30 years. Quit in 2009, though vaped for a short period afterwards. Rare alcohol use. 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 She lives in [place], [place]. -Past medical history summarized below: Past Medical History: Diagnosis Date Breast cancer GERD (gastroesophageal reflux disease) History of chemotherapy History of radiation therapy Hypothyroidism Pericardial effusion Past Surgical History: Procedure Laterality Date BREAST LUMPECTOMY Left 01/25/2020 BREAST BIOPSY Right 09/14/2019 BREAST BIOPSY Left 08/31/2019 CHOLECYSTECTOMY Family History Problem Relation Age of Onset Breast Cancer Mother 48 Social History Socioeconomic History Marital status: Spouse name: Not on file Number of children: Not on file Years of education: Not on file Highest education level: Not on file Occupational History Not on file Tobacco Use Smoking status: Former Current packs/day: 0.00 Average packs/day: 1 pack/day for 34.0 years (34.0 ttl pk-yrs) Types: Cigarettes Start date: 06/02/1977 Quit date: 06/02/2011 Years since quittin.7 Smokeless tobacco: Never Vaping Use Vaping status: Former Substance and Sexual Activity Alcohol use: Yes Comment: social drinking Drug use: Not on file Sexual activity: Not on file Other Topics Concern Not on file Social History Narrative Not on file Social Determinants of Health Financial Resource Strain: Not on file Food Insecurity: Not on file Transportation Needs: Not on file Physical Activity: Not on file Stress: Not on file Social Connections: Not on file Intimate Partner Violence: Not on file Housing Stability: Not on file Allergies Allergen Reactions Codeine Nausea and Vomiting Wound Dressing Adhesive Itching and Rash OBJECTIVE Vitals: 03/12/24 1333 BP: 125/83 Pulse: 92 Resp: 16 Temp: 97.9 F (36.6 C) SpO2: 98% Wt Readings from Last 1 Encounters: 03/12/24 62.3 kg (137 lb 6.4 oz) Physical Exam: Gen: NAD. Sitting comfortably on the exam chair HEENT: MMM. OP clear. CV: RRR. S1 and S2 noted. No MRGs. Resp: No labored breathing. Dull breath sounds at the right lung base with crackles GI: Soft, NT, ND, BS+. No appreciable HSM. Ext: No RACHID. Pulses 2+ throughout. Skin: No bruising or rash on exposed skin Neuro: Alert and oriented. Moving all extremities spontaneously. Psych: Normal mood and affect. L Breast: S/p lumpectomy & SLNBx. No nipple changes, skin erythema, or palpable masses. R Breast: No nipple changes, skin erythema, or palpable masses. Lymph: No appreciable cervical or axillary lymphadenopathy Labs: CBC No results found for: WBC , WBCCOUNT , WBCFETAL , HGB , HCT , PLATELET , MCV Diff No results found for: ANC , ABSNEUCNTME No results found for: RBCDISTRIBU , GRNLOCYT , LYMPHOCYT , MONOCYTELEC , EOSINOPHILS , BASOPHILS , GRNLOCTYABS , LYMPHOCYTABS , MONOSABSOLU , EOSINOPHLABS , BASOPHILSABS , PLATELET , MNPLATVOLME , MPV CMP No results found for: ALT , TRANSFERASEA , AST , GGT , GAMMAGT , ALKPHOS , BILITOTAL , BILIDIRECT , ALBUMIN , URIC , FIBRINOGEN , LDH , ANC No results found for: SODIUM , POTASSIUM , CHLORIDE , CO2 , BUN , CREATSERUM , GLUCOSE Imaging: See Oncology Summary above Pathology: See Oncology Summary above ASSESSMENT & PLAN Tiny Marte is a 63 y.o. female w/ recurrent stage IV HR+ HER2+BC who presents to clinic today for a second opinion Latest cancer stage: Stage 2 (cT2 cN0) 2019 -> ypT1c ypN0 -> Stage IV (dx 01/2024) Tumor features: L breast (01/25/20): Residual 1.5cm G3 IDC, negative margins, [address], ER 75%, [place] 0%, Her2-neg (IHC 0) R pleural fluid (03/04/24): Metastatic breast cancer, ER+, NY-, HER2 unknown (too little specimen). Genetics: Referral placed on 03/15/24. Prior systemic therapies: TC x 4 (2019), capecitabine ([id number]), anastrozole (8842-3869) Prior locoregional therapies: L lumpectomy & SLNBx (01/25/20) Current therapy: Anastrozole Future therapy: Ribociclib + fulvestrant, zometa #Recurrent Metastatic HR+ Breast Cancer: -Prior h/o L-sided stage 2 (cT2 cN0) HR+ IDC in 2019 for which a neoadjuvant OncotypeDx test was sent, with a score of 49. Underwent NAC via TC x 4 cycles, then a L lumpectomy & SLNBx (01/25/20) showing residual 1.5cm G3 IDC w/ DCIS, negative margins, [address], ER 75%, NY 0%, HER2-neg (IHC 0).Completed radiation on 04/04/20, then finished capecitabine x 8 cycles on 11/13/20. -Started ET via anastrozole from 11/2020 to her metastatic recurrence date of 01/23/24 when an Xraydetected a new R 5th rib fracture & R pleural effusion. -PET on 02/27/24 confirmed the R pleural effusion, R pleural nodules, and extensive bony lesions. -Underwent a R thora on 03/04/24 showing mBC. Unable to do full receptors, but appears ER+ NY- -Post-menopausal at recurrent diagnosis and with an average functional status. Baseline symptoms ofR hip/back pain & ORELLANA due to tumor burden. Recommendations: -Discussed with her what it means to have metastatic breast cancer, including the inability to curesuch cases. However, we have treatments available to help provide additional quality time. We expect the cancer to become resistant to the treatments we provide, so interval imaging is performed to assess for both treatment response & treatment resistance. Once the disease becomes resistant to current treatments or the treatments themselves are too toxic to manage, we transition to next line therapy. Each subsequent line of therapy is either less effective or more toxic in nature compared to prior lines. Eventually we reach a point of futility, at which goals of care need readdressed. -The choice of next line therapy includes standard of care & clinical trial options, which we discussed in detail. Will begin C1D1 Ribo+Fulvestrant in 2 weeks -We additionally discussed the approval of inavolisib as of yesterday. While we do not have it available currently, could be a consideration. Would need to obtain a newer biopsy for NGS testing however to confirm eligibility. Alternatively, could simply reserve PIK3CA inhibitor therapy for 2nd line treatment where eligible. Would elect for the later, but can discuss further at future visits. -She will be meeting with RadOnc & Ortho teams in the coming weeks to discuss palliative locoregional therapy options. -Lastly, discussed bone strengthening therapies. Will need to obtain dental clearance. Will start with subsequent cycles once tolerance of ribociclib & fulvestrant is shown. Return in about 2 weeks (around 03/26/2024) for RTC in 2 weeks for C1D1 Ribo/Fulv, labs, & ISHA visit. Orders Placed This Encounter AMB REFERRAL TO GENETICS (CANCER) AMB REFERRAL TO SOCIAL WORK Documented by Enrico Sheth for Dr. Carlos He on 03/12/2024 at 3:05 PM. All medical record entries made by the Meryl were at my direction and personally dictated by me, Carlos He MD, Guilherme reviewed the chart and agree that the record accurately reflects my personal performance of the history, physical exam, assessment and plan. Carlos He MD Oxygen Therapist of Internal Medicine Division of Medical Oncology [facility] Pager #[phone] documented in this encounterOhioHealth Berger Hospital10-11-2024 Instructions* Patient Instructions* Kenia Pressley RN - 03/12/2024 1:40 PM EDT Images from the original note were not included. When will my phone call be returned? Our providers will do their best to answer your call quickly. You should expect a returned call within 24 hours. If you have an emergency, please call 911 or go to your local emergency department. When will my [employer] message be returned? Our providers will do their best to answer your questions quickly. However, there are certain timeswhen you won t get a response. Our providers won t respond to messages on nights, weekends or holidays. [employer] messages are not for urgent issues, and you can expect a response within 3 business days. If you have an emergency, please call 911 or go to your local emergency department. A business day is Friday through Friday 8 a.m. to 4:30 p.m. When are my results released? Patients have access to most test results as soon as they are available. These results and notes could include sensitive information such as a cancer diagnosis. You always have the choice to wait to view your information in [employer] until you speak with your provider. When will my FMLA/Paperwork be returned? Please allow 7-10 business days for completion of FMLA/Paperwork to be returned. Patient Satisfaction Surveys: Your opinion matters! If you receive a patient satisfaction survey in the mail we would appreciate your thoughts. Please help us get better! Store controlled substances (for example - opioids/narcotics, certain stimulants, certain sedatives, etc.) in a locked cabinet or in an area only accessible to you. When you no longer need the controlled substances that have been prescribed for you, do NOT bring them to [facility]. We are NOT permitted under law to accept controlled substances from a patient for disposal. You may dispose of controlled substances, as well as other old or meju-iwu-oazvuyl and prescription medications, by one of the safe methods listed below: A drug take-back program - this is the best method to dispose of medications safely. You can locatethe take-back program closest to you @ https://takebackday.ines.gov under the COLLECTION SITE HUMANITIES DEPARTMENT CHAIR tab. The [facility] Board of pharmacy homepage also has an RX Disposal Splunk Consultant tool @https://www.pharmacy.[place].gov/Compliance/DrugDisposal. If you cannot locate a drug take-back program, never dispose of medications down the sink or toilet. Instead, place the medication in a sealable storage bag and mix with damp coffee grounds, dirt, orcat litter, then seal the bag, and dispose of in your regular trash. If you have or unused cancer medication or hazardous drugs (this does not include Tamoxifen, Anastrozole, Letrozole or Exemestane), these may be potentially donated to our [facility] repository drug program and then given to other patients who are uninsured or underinsured. Ask your [facility] pharmacist about this program. * Attachments The following attachments cannot be sent through Care Everywhere. * Ribociclib (Cruz Villarreal) (Kittitian) * Fulvestrant (Cruz Villarreal) (Kittitian) * Zoledronic Acid (Cruz Villarreal) (Kittitian) documented in this encounterOhioHealth Berger Hospital10-10-2024 Miscellaneous Notes* Telephone Encounter - Shahid Manzano DO - 03/11/2024 5:15 PM EDT Spoke with patient about the results. She will see onc tomorrow. Will get CXR prior to next appt and see her on . * Telephone Encounter - Lamont Jha MA - 03/11/2024 4:[address] He's office and got direct fax for patient's report to be faxed. They will be watching for report to come through and said they will give it to Dr. He right away to have for patient's appointment with him tomorrow. * Telephone Encounter - Lamont Jha MA - 03/11/2024 4:00 PM EDT Got pathology to expedite path report. Faxing report to oncology and informing patient that report will be sent to oncology for her appointment tomorrow * Telephone Encounter - Linda Antunez - 03/11/2024 3:02 PM EDT Pt states she had a thorocentisis last wk and she would like a reading of the pathology report before she goes to her Oncology appt tomorrow. Please call her back as soon as possible or fax result toDr Carlos He at [phone] documented in this encounterMineral Area Regional Medical [id number] Telephone encounter Note* Telephone Encounter - Shahid Manzano DO - 03/11/2024 5:15 PM EDT Spoke with patient about the results. She will see onc tomorrow. Will get CXR prior to next appt and see her on . [facility] [id number] Telephone encounter Note* Telephone Encounter - Lamont Jha MA - 03/11/2024 4:[address] He's office and got direct fax for patient's report to be faxed. They will be watching for report to come through and said they will give it to Dr. He right away to have for patient's appointment with him tomorrow. [facility] [id number] Telephone encounter Note* Telephone Encounter - Lamont Jha MA - 03/11/2024 4:00 PM EDT Got pathology to expedite path report. Faxing report to oncology and informing patient that report will be sent to oncology for her appointment tomorrow [facility] [id number] Telephone encounter Note* Telephone Encounter - Linda Antunez - 03/11/2024 3:02 PM EDT Pt states she had a thorocentisis last wk and she would like a reading of the pathology report before she goes to her Oncology appt tomorrow. Please call her back as soon as possible or fax result to Carlos He at [phone] [facility] [id number] History of Present illness Narrative* Lillie Causey RN - 03/08/2024 8:15 AM EDT Briefly, Tiny Marte's oncologic history is summarized by the followin08/2019 Presented with left breast palpable concern 08/26/19 Mammo/US: Left: at 12:00 a 1.9 x 1.8 x 2.0 cm lobular hard hypochromic mass Right: 11:00 a1.3 x 1.6 x 1.2 cm hypoechoic mass with acoustic shadowing. 08/31/19 Left Breast Bx 12:00 position Grade 2, Invasive Ductal Carcinoma ER 80-90% [place] <1%, HER 2 IHC: 0 08/31/19 Oncotype Dx Score: 49 09/14/19 Right Breast Bx 11:00 position Fat necrosis 09/30/19 MRI Breast: Enhancing mass at the site of palpable concern at the superior slightly medialleft breast. Within the left breast at approximately the 11:00 position at the site of palpable concern there is a lobulated mass like area measuring 2.1 x 2.8 x 2.3 cm 10/11/19 Neoadjuvant Docetaxel/Cytoxan x 4 cycles 01/25/20 Left Breast Lumpectomy w/ LSLNBx 1.5 cm, Grade 3, Invasive Ductal Carcinoma and DCIS, Margins negative, LN 0/2 ER 75%, [place] 0%, HER 2 IHC: 0 pT1c pN0 03/08/20 Radiation therapy to left breast Total dose: 5005 cGy. Completed 04/04/2020 06/05/20 Adjuvant Capecitabine x 8 cycles. Completed 11/13/20. Initiated Arimidex 02/07/21 Mammo: Bi-Rads 3 08/14/21 Mammo: Bi-Rads 2 08/15/21 Mammo: Bi-Rads 2 09/29/23 Mammo: Bi-Rads 2 01/23/24 Xray Ribs: Acute, minimally displaced fracture of lateral right 5th rib. Moderate right pleural effusion and mild basilar atelectasis or possibly infiltrates. 01/30/24 Right Hip Xray: There is no acute fracture or dislocation. No cortical erosion. There appears elongated oval-shaped lucent region measuring 3.9 x 1.4 cm in the proximal femoral shaft 02/19/24 ECHO: EF 67% moderate to large pericardial effusion that was circumferential without any evidence of cardiac tamponade physiology 02/27/24 PET: Extensive skeletal metastatic deposits are appreciated. Metabolic activity in the posterior right pleura is noted and there appears to be some nodularity to the right pleura. Large right pleural effusion. 03/04/24 Pleural Fluid Cytology pending 03/12/24 Dr He for opinion. Local med onc, Dr Mark Anthony Patton, documented in this encounterOhioHealth Berger Hospital10-02-2024 NoteUT Cardiology - [facility] John Marte is a 63 y.o. year old female patient being seen to establish care. Ref from Curtis Aguirre CNP for pericardial effusion. She saw pulmonology today for pleural effusion. She will have it drained tomorrow and tested for cancer cells. She denies chest pain and lightheadedness. Gets SOB w/wo exertion. Sometimes her resting heart rate is in the 120's she says. There is no problem list on file for this patient. Family History Problem Relation Name Age of Onset Heart failure Mother Atrial fibrillation Mother Coronary artery disease Father Other (CABG) Father Social History Tobacco Use Smoking status: Former Types: Cigarettes Smokeless tobacco: Never Substance Use Topics Alcohol use: Yes Comment: occasionally MONAE Franks is seen as a new patient referred for pericardial effusion. She is a 63-year-old woman with history of breast cancer diagnosed 4 years ago status postlumpectomy, radiation therapy, chemotherapy intravenous and oral. Currently maintained on anastrozole. Recently she was investigated for worsening symptoms of shortness of breath. She was found to have right pleural effusion and a moderate to large pericardial effusion by echocardiography. She is seen today to determine further steps. She was evaluated by pulmonary and will be undergoing right thoracentesis tomorrow. She denies chest pain. No fevers or chills or other illnesses. No leg edema. Her exercise capacity is limited by her shortness of breath. Review of Systems Cardiovascular: Positive for dyspnea on exertion. Respiratory: Positive for cough and shortness of breath. All other systems reviewed and are negative. Objective Visit Vitals BP (!) 146/96 (BP Location: Right arm, Patient Position: Sitting) Pulse 93 Ht 1.626 m (5' 4 ) Wt 63 kg (139 lb) SpO2 94% BMI 23.86 kg/m??? Smoking Status Former BSA 1.69 m??? Physical Exam Constitutional: Appearance: She is well-developed. She is not ill-appearing. HENT: Head: Normocephalic and atraumatic. Nose: Nose normal. Eyes: General: No scleral icterus. Pupils: Pupils are equal, round, and reactive to light. Neck: Thyroid: No thyromegaly. Vascular: No JVD. Cardiovascular: Rate and Rhythm: Normal rate and regular rhythm. Pulses: Radial pulses are 2+ on the right side and 2+ on the left side. Heart sounds: Normal heart sounds. No murmur heard. No friction rub. No gallop. Pulmonary: Effort: Pulmonary effort is normal. No respiratory distress. Breath sounds: Normal breath sounds. No wheezing or rales. Chest: Chest wall: No tenderness. Abdominal: General: Bowel sounds are normal. There is no distension. Palpations: Abdomen is soft. Tenderness: There is no abdominal tenderness. Musculoskeletal: General: No swelling. Cervical back: Neck supple. Skin: General: Skin is warm and dry. Neurological: General: No focal deficit present. Mental Status: She is alert and oriented to person, place, and time. Psychiatric: Mood and Affect: Mood normal. Behavior: Behavior is cooperative. Judgment: Judgment normal. Allergies Allergies Allergen Reactions Codeine GI intolerance, Other and Nausea And Vomiting Medications Current Outpatient Medications: anastrozole (Arimidex) 1 mg chemo tablet, Take 1 mg by mouth in the morning, Disp: , Rfl: famotidine (Pepcid) 20 mg tablet, Take 20 mg by mouth twice a day., Disp: , Rfl: levothyroxine (Synthroid, Levoxyl) 75 mcg tablet, Take 75 mcg by mouth., Disp: , Rfl: cholecalciferol (D3-5) 5,000 Units tablet, Take 3 tablets by mouth 1 (one) time each day at the same time., Disp: , Rfl: denosumab (Prolia) 60 mg/mL syringe, Inject 60 mg under the skin., Disp: , Rfl: loratadine 10 mg capsule, Take 10 mg by mouth in the morning., Disp: , Rfl: magnesium 250 mg tablet, Take 250 mg by mouth., Disp: , Rfl: traMADol (Ultram) 50 mg tablet, Take by mouth., Disp: , Rfl: Recent Labs Blood testing 01/12/2024: Potassium 4.7, BUN 18, creatinine 0.59, triglycerides 89, cholesterol 187, LDL 127, HDL 42. Blood testing 11/13/2023: Hemoglobin 13.7, platelets 308, potassium 4.0, BUN 13, creatinine 0.7, EGFR more than 60, LFTs normal. Imaging and other tests ECG today 03/21/2024: Normal sinus rhythm, rightward axis, possible anterior infarct, age undetermined. Abnormal ECG. Echocardiogram 02/19/2024: CONCLUSION: 1. Global left ventricular systolic function is hyperdynamic; visually estimated ejection fraction is 65 to 70% 2. Normal right ventricular size and systolic function 3. Systolic function is indeterminate 4. Mild tricuspid regurgitation 5. Mildly elevated right ventricular systolic pressure; RVSP 36 mmHg 6. No significant valvular abnormalities 7. A moderate to large circumferential pericardial effusion is seen; Doppler measurements do not suggest tamponade physiology 8. A pleural effusion is seen (more content not included)...[facility]10-02-2024 History of Present illness Narrative* Shahid Manzano DO - 03/03/2024 11:30 AM EDT Images from the original note were not included. Tiny Marte presents today for evaluation in regards to abnormal CT and PET scan. The patientis accompanied by her at today's office visit. She states that her symptoms began in November. She had some right-sided chest discomfort. She ultimately presented to her primary care physician's office. At that time she had a chest x-ray done. She states she was found to have a fractured rib. She then later had some discomfort in her right hip. She states she was ultimately sent for further imaging. She did have a CT scan of her chest and abdomen. She was then referred for PET scan given that there were abnormal findings. She does give a prior history of breast cancer that was treated christiane ral years ago. She states she recently had blood work in October that did not demonstrate any significant abnormalities in regards to her breast cancer. She had followed with Oncology routinely, howeverrecently her insurance has changed and her prior oncologist is now on network. She does still note some occasional pain in her hip. She does also complain of shortness of breath especially with exertion. She states if she does any activity she does notice an increase in heart rate. She does also note shortness of breath when she lays down more so on her right side at night. She has been sleeping on her left side given these complaints. She denies any fevers, chills, or sweats. She states she has noticed a decrease in her appetite recently. She has lost 5-6 lb over last 2-3 weeks. She was alsofound to have a pericardial effusion. She is scheduled to see Cardiology this afternoon in regards to this. She underwent recent echocardiogram. She denies any other complaints at this time. Allergies Allergen Reactions Codeine GI intolerance Wound Dressing Adhesive Itching and Rash Current Outpatient Medications Medication Sig Dispense Refill anastrozole (Arimidex) 1 MG chemo tablet Take 1 tablet by mouth Daily. calcium carbonate (Os-Xavi) 1250 (500 Ca) MG tablet Take 1,000 mg by mouth Daily cholecalciferol (D-5000) 5,000 Units tablet Take 10,000 Units by mouth Daily denosumab (Prolia) 60 MG/ML solution prefilled syringe Inject 60 mg under the skin famotidine (Pepcid) 20 MG tablet Take 1 tablet (20 mg) by mouth Daily 90 tablet 1 ibuprofen 800 MG tablet Take 800 mg by mouth every 8 (eight) hours if needed levothyroxine (Synthroid, Levoxyl) 75 MCG tablet Take 1 tablet (75 mcg) by mouth in the morning. Take before meals. 90 tablet 1 loratadine (Claritin) 10 MG tablet Take by mouth MAGNESIUM PO Take 400 mg by mouth Multiple Vitamins-Minerals (OCUVITE EXTRA PO) Take by mouth Shady Side-3 Fatty Acids (Fish Oil) 1200 MG capsule delayed-release Take by mouth traMADol (Ultram) 50 MG tablet Take by mouth chlorhexidine (Peridex) 0.12 % solution RINSE WITH 1/2 OUNCE BY MOUTH AFTER BREAKFAST AND BEFORE BEDTIME fexofenadine ODT (Maricruz ODT) 30 MG disintegrating tablet Take 30 mg by mouth Daily tiZANidine (Zanaflex) 4 MG tablet Take 1 tablet (4 mg) by mouth as needed at bedtime for muscle spasms for up to 10 days 10 tablet 0 No current facility-administered medications for this visit. Past Medical History: Diagnosis Date Abnormal CT of the chest 02/16/2024 Acquired hypothyroidism (CMS/HCC) 05/06/2023 Gastroesophageal reflux disease without esophagitis 05/06/2023 Invasive ductal carcinoma of left breast (CMS/HCC) 10/07/2019 Past Surgical History: Procedure Laterality Date BI US GUIDED BREAST LOCALIZATION AND BIOPSY LEFT Left 01/25/2020 BI US GUIDED BREAST LOCALIZATION AND BIOPSY LEFT 01/25/2020 BREAST LUMPECTOMY Left CHOLECYSTECTOMY WISDOM TOOTH EXTRACTION all 4 No family history on file. Social History Tobacco Use Smoking status: Former Current packs/day: 0.00 Types: Cigarettes Quit date: 2011 Years since quittin.7 Smokeless tobacco: Never Substance Use Topics Alcohol use: Not Currently Comment: coffee and tea 2 cups daily BP 128/85 (BP Location: Left arm, Patient Position: Sitting) Pulse 96 Ht 5' 4 Wt 140 lb SpO2 96% BMI 24.03 kg/m Exam: Heart: regular rate Lungs: clear to auscultation bilaterally, no wheezes/rales/rhonchi, no resp distress Extremities: no edema noted, no visible rashes Neuro: alert, oriented x3 Imaging Reviewed: Images and report of PET scan from February 2024 reviewed--metastatic disease confirm 2 lymphatic system and skeletal system, large right pleural effusion, abnormal metabolic activity in the right pleura Images and report of CT chest from February 2024 reviewed--small right pleural effusion, lytic lesion involving the anterior right 2nd and anterior lateral 5th and posterior 11th rib suspicious for metastasis, subacute fracture of the anterior lateral 5th rib, multiple right paratracheal and subcarinal and right hilar lymph nodes are noted up to 1.3 cm Assessment/Plan: Pleural effusion -- at this time we did discuss the findings of her CT scan as well as her PET scan. We did view the images together at today's office visit as well. Given her prior history of breastcancer, we discussed these findings are concern for metastatic spread of this breast cancer. At this time we discussed options of thoracentesis to help alleviate her shortness of breath as well as hopefully obtain a diagnosis. The risks and benefits were discussed with her and her . She was agreeable to proceeding with this tomorrow. Mediastinal lymphadenopathy -- we also discussed the findings of the mediastinal lymphadenopathy was noted to be positive on the PET scan. This would be best diagnosed with EBUS if needed. We discussed that if a suitable answer was obtained by the pleural fluid analysis then she would not necessarily need to undergo bronchoscopy with aspiration of the nodes by needle versus mediastinoscopy. However if oncology did feel strongly they did need additional information in regards to lymph nodes thiscould be pursued regardless of whether the pleural effusion was positive or not. At this time we will proceed with thoracentesis to help alleviate symptoms as well as obtain a diagnosis and discuss the possibility of bronchoscopy in the future. The patient and her understand the plan and are agreeable. Follow up in about 2 weeks (around 03/17/2024) for f/u thoracentesis. Shahid Manzano DO documented in this encounterMineral Area Regional Medical [id number] History of Present illness Narrative* Curtis Aguirre NP - 02/24/2024 5:47 PM EDTAssociated Problem(s): Hx of breast cancer Await PET scan Dr Coleman follow up * Curtis Aguirre NP - 02/24/2024 5:47 PM EDTAssociated Problem(s): Pericardial effusion Sees cardiology next week Advised of sxs to monitor for and go to ER if acute symptoms * Curtis Aguirre NP - 02/24/2024 5:46 PM EDTAssociated Problem(s): Lymphadenopathy, mediastinal See pulmonary, likely need bronch * Curtis Aguirre NP - 02/24/2024 5:46 PM EDTAssociated Problem(s): Pleural effusion, not elsewhere classified Await PET scan Will see pulmonology as well * Curtis Aguirre NP - 02/24/2024 4:00 PM EDT Images from the original note were not included. '. Tiny Marte is a 63 y.o. female presents with chief complaint of No chief complaint on file. HPI: Here today for review of her labs/scans: Pleural effusion, pericardial effusion and right hip pain: Has PET scan scheduled for 02/26, appts with Pulmonary/Cardiology 03/04/[address] Coleman on 03/05/24 Mild dyspnea occ, no chest pain/pressure, does still have right hip pain better after gets up and moves SUBJECTIVE: MEDICATIONS: Current Outpatient Medications Medication Instructions anastrozole (Arimidex) 1 MG chemo tablet 1 tablet, Oral, Daily calcium carbonate (OS-XAVI) 1,000 mg, Oral, Daily chlorhexidine (Peridex) 0.12 % solution RINSE WITH 1/2 OUNCE BY MOUTH AFTER BREAKFAST AND BEFORE BEDTIME cholecalciferol (D-5000) 10,000 Units, Oral, Daily famotidine (PEPCID) 20 mg, Oral, Daily fexofenadine ODT (MARICRUZ ODT) 30 mg, Oral, Daily ibuprofen 800 mg, Oral, Every 8 hours PRN levothyroxine (SYNTHROID, LEVOXYL) 75 mcg, Oral, Daily before breakfast MAGNESIUM PO 400 mg, Oral Shady Side-3 Fatty Acids (Fish Oil) 1200 MG capsule delayed-release Oral Prolia 60 mg, Subcutaneous tiZANidine (ZANAFLEX) 4 mg, Oral, Nightly PRN ALLERGIES: Allergies Allergen Reactions Codeine GI intolerance Wound Dressing Adhesive Itching and Rash REVIEW OF SYMPTOMS: Review of Systems Constitutional: Negative for appetite change, chills and fever. HENT: Negative for congestion, ear pain and sore throat. Eyes: Negative for pain, discharge, redness and visual disturbance. Respiratory: Negative for cough, shortness of breath and wheezing. Cardiovascular: Negative for chest pain, palpitations and leg swelling. Gastrointestinal: Negative for abdominal pain, blood in stool, constipation, diarrhea, nausea and vomiting. Genitourinary: Negative for difficulty urinating, dysuria and frequency. Musculoskeletal: Positive for arthralgias. Negative for back pain, joint swelling and myalgias. Skin: Negative for rash and wound. Neurological: Negative for dizziness, tremors, seizures, syncope and headaches. Psychiatric/Behavioral: Negative for behavioral problems, self-injury and suicidal ideas. The patient is not nervous/anxious. Hematological: Does not bruise/bleed easily. Endocrine: Negative for polydipsia, polyphagia and polyuria. Allergic/Immunologic: Negative for environmental allergies and food allergies. PAST MEDICAL HISTORY Past Medical History: Diagnosis Date Abnormal CT of the chest 02/16/2024 Acquired hypothyroidism ([facility]/HCC) 05/06/2023 Gastroesophageal reflux disease without esophagitis 05/06/2023 Invasive ductal carcinoma of left breast ([facility]) 10/07/2019 Past Surgical History: Procedure Laterality Date BI US GUIDED BREAST LOCALIZATION AND BIOPSY LEFT Left 01/25/2020 BI US GUIDED BREAST LOCALIZATION AND BIOPSY LEFT 01/25/2020 BREAST LUMPECTOMY Left CHOLECYSTECTOMY WISDOM TOOTH EXTRACTION all 4 family history is not on file. OBJECTIVE: Visit Vitals BP 140/86 (BP Location: Left arm, Patient Position: Sitting, BP Cuff Size: Adult long) Pulse 80 Temp 98.3 F (Temporal) Resp 19 Wt 141 lb 3.2 oz SpO2 93% BMI 24.24 kg/m Smoking Status Former BSA 1.7 m Physical Exam Vitals and nursing note reviewed. Constitutional: General: She is not in acute distress. Appearance: Normal appearance. HENT: Head: Normocephalic and atraumatic. Right Ear: External ear normal. Left Ear: External ear normal. Nose: Nose normal. Mouth/Throat: Mouth: Mucous membranes are moist. Eyes: Extraocular Movements: Extraocular movements intact. Conjunctiva/sclera: Conjunctivae normal. Cardiovascular: Rate and Rhythm: Normal rate and regular rhythm. Pulses: Normal pulses. Heart sounds: Normal heart sounds. No friction rub. Pulmonary: Effort: Pulmonary effort is normal. No respiratory distress. Breath sounds: Normal breath sounds. No wheezing. Comments: Sl decrease in sound of RLL, no resp distress Abdominal: General: Bowel sounds are normal. There is no distension. Palpations: Abdomen is soft. There is no mass. Tenderness: There is no abdominal tenderness. Musculoskeletal: General: Normal range of motion. Cervical back: Normal range of motion and neck supple. Right lower leg: No edema. Left lower leg: No edema. Lymphadenopathy: Cervical: No cervical adenopathy. Skin: General: Skin is warm and dry. Capillary Refill: Capillary refill takes 2 to 3 seconds. Findings: No rash. Neurological: General: No focal deficit present. Mental Status: She is alert and oriented to person, place, and time. Psychiatric: Mood and Affect: Mood normal. Behavior: Behavior normal. Thought Content: Thought content normal. Judgment: Judgment normal. ASSESSMENT AND PLAN: No follow-ups on file. Problem List Items Addressed This Visit Hx of breast cancer Await PET scan Dr Coleman follow up Aromatase inhibitor use Pleural effusion, not elsewhere classified - Primary Await PET scan Will see pulmonology as well Pericardial effusion Sees cardiology next week Advised of sxs to monitor for and go to ER if acute symptoms Lymphadenopathy, mediastinal See pulmonary, likely need bronch documented in this encounterMineral Area Regional Medical [id number] History of Present illness Narrative* Curtis Aguirre NP - 02/16/2024 6:57 PM EDTAssociated Problem(s): Abnormal CT of the chest Discussed results of CT scan of chest as well as hip CT with pt on the phone tonight 02/16/24. I have explained that we aer working with [facility] on the order of PET scan, and we discussed what a PET scan shows, and why we are ordering it. She did explain that her insurance changed and [facility] does NOT take any marketplace insurances. We may need to find new oncologist provider as well I did have her check about Hellen Carreon that comes to [facility] from [facility] as well. She will do that documented in this encounterMineral Area Regional Medical [id number] Telephone encounter Note* Telephone Encounter - Grace Falk RN - 02/16/2024 2:53 PM EDT Called and discussed importance of PFA appt to attempt for pt to remain with our provider at [facility], d/t insurance. She is also aware PET sent to [facility] earlier today for PET to be scheduled. She denies further questions needs or concerns at this time. Grace Falk RN [facility]09-16-2024 Miscellaneous Notes* Telephone Encounter - Grace Falk RN - 02/16/2024 2:53 PM EDT Called and discussed importance of PFA appt to attempt for pt to remain with our provider at [facility], d/t insurance. She is also aware PET sent to [facility] earlier today for PET to be scheduled. She denies further questions needs or concerns at this time. Grace Falk RN documented in this encounterLakehealth Tripoint Medical Center09-13-2024 Telephone encounter Note * Telephone Encounter - Grace Falk RN - 02/13/2024 1:14 PM EDT PET order faxed to [facility]; [phone]. Grace Falk RN [facility]09-13-2024 Miscellaneous Notes* Telephone Encounter - Grace Falk RN - 02/13/2024 1:14 PM EDT PET order faxed to [facility]; [phone]. Grace Falk RN * Telephone Encounter - Mark Anthony Patton MD - 02/13/2024 12:41 PM EDT Thanks - I will call her later. * Telephone Encounter - Leny Rothman - 02/13/2024 11:40 AM EDT Spoke to patient & set her up to talk to a PFA on 02/16/2024 at 3 pm. Leny Rothman * Telephone Encounter - Grace Falk RN - 02/13/2024 11:35 AM EDT Cipriano aware pt is unable to come for visit until discussed with PFA, d/t insurance. Pt is need PET ordered and performed at facility that accepts her insurance. Dr Coleman will call and discuss with pt Cipriano: Please review and sign pended WB PET Grace Falk RN * Telephone Encounter - Leny Rothman - 02/13/2024 10:03 AM EDT Patient has [place] [employer] Plan-Needs to speak to a PFA before she can be scheduled with Dr Patton. Patient is wanting to get a PET scan done at [facility]. Leny Rothman * Telephone Encounter - Grace Falk RN - 02/13/2024 8:10 AM EDT Call rec'd from Curtis Aguirre NP [facility]. Pt seen in December for R Rib pain. Xray showed Rib FX and RPlueral effusion . Pt then c/o R hip pain and Xray showed lesion femur. CT Chest/R Hip completed yesterday. She is requesting Dr Coleman review and follow up with pt. Pt had sent scan reports to Dr Coleman, he is aware and would like to see pt today. Sy Barker, nurse manager vehicle aware and will have team call to schedule. Nury Bass to obtain records and imaging. Grace Falk RN documented in this encounterLakehealth Tripoint Medical Center09-13-2024 Telephone encounter Note * Telephone Encounter - Mark Anthony Patton MD - 02/13/2024 12:41 PM EDT Thanks - I will call her later. [facility]09-13-2024 Telephone encounter Note* Telephone Encounter - Leny Rothman - 02/13/2024 11:40 AM EDT Spoke to patient & set her up to talk to a PFA on 02/16/2024 at 3 pm. Leny Rothman [facility]09-13-2024 Telephone encounter Note* Telephone Encounter - Grace Falk RN - 02/13/2024 11:35 AM EDT Cipriano aware pt is unable to come for visit until discussed with PFA, d/t insurance. Pt is need PET ordered and performed at facility that accepts her insurance. Dr Coleman will call and discuss with pt Cipriano: Please review and sign pended WB PET Grace Falk RN [facility]09-13-2024 Telephone encounter Note* Telephone Encounter - Leny Rothman - 02/13/2024 10:03 AM EDT Patient has [place] [employer] Plan-Needs to speak to a PFA before she can be scheduled with Dr Patton. Patient is wanting to get a PET scan done at [facility]. Leny Rothman [facility]09-13-2024 Telephone encounter Note* Telephone Encounter - Grace Falk RN - 02/13/2024 8:10 AM EDT Call rec'd from Curtis Aguirre NP [facility]. Pt seen in December for R Rib pain. Xray showed Rib FX and RPlueral effusion . Pt then c/o R hip pain and Xray showed lesion femur. CT Chest/R Hip completed yesterday. She is requesting Dr Coleman review and follow up with pt. Pt had sent scan reports to Dr Coleman, he is aware and would like to see pt today. Sy Barker, nurse manager vehicle aware and will have team call to schedule. Nury Bass to obtain records and imaging. Grace Falk RN [facility]08-20-2024 History of Present illness Narrative* Curtis Aguirre NP - 01/20/2024 3:53 PM EDTAssociated Problem(s): Mixed hyperlipidemia (CMS/HCC) 09/23: TC 244, now 187, Trigs 130 now 89, HDL 44 now 42, and [id number] now 127 No statin needed at this time * Curtis Aguirre NP - 01/20/2024 3:52 PM EDTAssociated Problem(s): Pre-diabetes Life style changes A1c was 6.4 09/23 now 6.0% 01/23 * Curtis Aguirre NP - 01/20/2024 3:51 PM EDTAssociated Problem(s): Rib pain on right side Check xray Add tizanidine and toradol Hold ibuprofen Fu if not better * AUGUSTIN TOSCANO - 01/20/2024 3:00 PM EDT Pt is having pain in her upper right rib area possibly muscular related In the last few weeks. She states she woke up one morning and her entire right side was painful and was unable to move. She hasbeen chiropractor twice who told her that her back and neck needed re-aligned. She felt better but still was having pain in the right chest area and states that it feels like a cracked rib. * Curtis Aguirre NP - 01/20/2024 3:00 PM EDT Tiny Marte is a 63 y.o. female presents with chief complaint of No chief complaint on file. HPI: Here to review labs: Also with right sided rib pain: over the last 3 weeks Injury: none, no recent illness Pain:sharp Radiate: right side Meds trialed: ibuprofen and heat SUBJECTIVE: MEDICATIONS: Current Outpatient Medications Medication Instructions anastrozole (Arimidex) 1 MG chemo tablet 1 tablet, Oral, Daily calcium carbonate (OS-XAVI) 1,000 mg, Oral, Daily chlorhexidine (Peridex) 0.12 % solution RINSE WITH 1/2 OUNCE BY MOUTH AFTER BREAKFAST AND BEFORE BEDTIME cholecalciferol (D-5000) 10,000 Units, Oral, Daily famotidine (PEPCID) 20 mg, Oral, Daily fexofenadine ODT (MARICRUZ ODT) 30 mg, Oral, Daily ibuprofen 800 mg, Oral, Every 8 hours PRN levothyroxine (SYNTHROID, LEVOXYL) 75 mcg, Oral, Daily before breakfast MAGNESIUM PO 400 mg, Oral Shady Side-3 Fatty Acids (Fish Oil) 1200 MG capsule delayed-release Oral Prolia 60 mg, Subcutaneous ALLERGIES: Allergies Allergen Reactions Codeine GI intolerance Wound Dressing Adhesive Itching and Rash REVIEW OF SYMPTOMS: Review of Systems Constitutional: Negative for appetite change, chills and fever. HENT: Negative for congestion, ear pain and sore throat. Eyes: Negative for pain, discharge, redness and visual disturbance. Respiratory: Negative for cough, shortness of breath and wheezing. Cardiovascular: Negative for chest pain, palpitations and leg swelling. Gastrointestinal: Negative for abdominal pain, blood in stool, constipation, diarrhea, nausea and vomiting. Genitourinary: Negative for difficulty urinating, dysuria and frequency. Musculoskeletal: Negative for arthralgias, back pain, joint swelling and myalgias (rib pain). Skin: Negative for rash and wound. Neurological: Negative for dizziness, tremors, seizures, syncope and headaches. Psychiatric/Behavioral: Negative for behavioral problems, self-injury and suicidal ideas. The patient is not nervous/anxious. Hematological: Does not bruise/bleed easily. Endocrine: Negative for polydipsia, polyphagia and polyuria. Allergic/Immunologic: Negative for environmental allergies and food allergies. PAST MEDICAL HISTORY Past Medical History: Diagnosis Date Acquired hypothyroidism ([facility]/HCC) 05/06/2023 Gastroesophageal reflux disease without esophagitis 05/06/2023 Past Surgical History: Procedure Laterality Date BI US GUIDED BREAST LOCALIZATION AND BIOPSY LEFT Left 01/25/2020 BI US GUIDED BREAST LOCALIZATION AND BIOPSY LEFT 01/25/2020 BREAST LUMPECTOMY Left CHOLECYSTECTOMY WISDOM TOOTH EXTRACTION all 4 family history is not on file. OBJECTIVE: Visit Vitals Resp 18 Ht 5' 4 Wt 145 lb 9.6 oz BMI 24.99 kg/m Smoking Status Former BSA 1.73 m Physical Exam Vitals and nursing note reviewed. Constitutional: General: She is not in acute distress. Appearance: Normal appearance. HENT: Head: Normocephalic and atraumatic. Right Ear: External ear normal. Left Ear: External ear normal. Nose: Nose normal. Mouth/Throat: Mouth: Mucous membranes are moist. Eyes: Extraocular Movements: Extraocular movements intact. Conjunctiva/sclera: Conjunctivae normal. Cardiovascular: Rate and Rhythm: Normal rate and regular rhythm. Pulses: Normal pulses. Heart sounds: Normal heart sounds. Pulmonary: Effort: Pulmonary effort is normal. Breath sounds: Normal breath sounds. Abdominal: General: Bowel sounds are normal. There is no distension. Palpations: Abdomen is soft. There is no mass. Tenderness: There is no abdominal tenderness. Musculoskeletal: Cervical back: Normal range of motion and neck supple. Right lower leg: No edema. Left lower leg: No edema. Comments: Right parascapular region down lateral right chest wall: mild -mod tenderness, no instability note, no rash to suggest zoster +TTP, as well as pain with rotation bilat No abd tenderness Skin: General: Skin is warm and dry. Capillary Refill: Capillary refill takes 2 to 3 seconds. Findings: No rash. Neurological: General: No focal deficit present. Mental Status: She is alert and oriented to person, place, and time. Psychiatric: Mood and Affect: Mood normal. Behavior: Behavior normal. Thought Content: Thought content normal. Judgment: Judgment normal. ASSESSMENT AND PLAN: No follow-ups on file. Problem List Items Addressed This Visit Pre-diabetes Life style changes A1c was 6.4 09/23 now 6.0% 01/23 Mixed hyperlipidemia (CMS/HCC) 09/23: TC 244, now 187, Trigs 130 now 89, HDL 44 now 42, and [id number] now 127 No statin needed at this time Rib pain on right side - Primary Check xray Add tizanidine and toradol Hold ibuprofen Fu if not better Relevant Medications tiZANidine (Zanaflex) 4 MG tablet ketorolac (Toradol) 10 MG tablet Other Relevant Orders XR ribs 2 views right w chest anteroposterior documented in this encounterMineral Area Regional Medical [id number] Instructions* Patient Instructions* Mark Anthony Patton MD - 11/19/2023 10:46 AM EDT RTC in 6 months for labs and exam Prolia in December 2023 - patient will call. next DXA in 11/2024 DXA ordered, reschedule to 11/2024 at [facility]. documented in this encounterLakehealth [facility] Center06-19-2024 History of Present illness Narrative* Mark Anthony Patton MD - 11/19/2023 10:15 AM EDT Images from the original note were not included. NAME: Marte [facility] NO.: [id number] DATE OF SERVICE: November 19, 2023 ([email or web address]) Some elements in this clinic note that are critical to medical decision making have been carefully reviewed and included from a prior clinic note dated: May 15, 2023 (Abdi) Referring Provider: Dr. 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 Tumor was in the axillary tail with no clinical evidence of axillary LN's. OncotypeDX RS (49) was High and therefore we gave her neoadjuvant therapy after discussion at tumorboard. She had had an excellent clinical response to neoadjuvant chemotherapy. 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 She completed adjuvant radiation on 04/04/2020 and also adjuvantXeloda 1500 mg BID x 14 days every [...] December 2023 - patient will call. (At [facility]) next DXA in 11/2024 DXA ordered, reschedule to 11/2024 at [facility]. HPI: CASE HISTORY: Reverse Chronological Order 09/27/2023 - Mammogram - BiRads 2. 06/05/2020-11/13/2020 - adjuvant Xeloda 1500 mg BID X 14 days every 21 days x 8 cycles; dose reduced to 1000mg BID x 14 days on and 7 days off with cycle 5. 03/08/2020-04/04/2020 - adjuvant radiation Left breast 4005cGy in 15 fractions with surgical cavityboost 1000 cGy in 5 fractions 10/11/2019-12/13/2019 - [...] right breast. 08/26/2019 - Bilateral diagnostic mammography: [facility]. Right breast with mild architectural distortion which improves with rolled views, likely related toimplant removal. 1.5 cm rounded mass upper breast [...] at 12:00 a 1.9 x 1.8 x 2.0cm lobular hard hypochromic mass with mild acoustic shadowing. Core biopsy was recommended. Updated Visit, November 19, 2023: Returns with Garrett Tumor markers check 11/13/2023 at [facility] were normal All labs normal aside rom lipids and fasting blood sugars. She's doing well otherwise. Brought her mom home with Hospice due to general failure to thrive and dementia. Chaperoned Breast Exam November 19, 2023 (Nico Pina) : Right breast is soft with prior reconstruction, Left breast is also soft with prior reconstruction and also with cancer resection. Cristal exam is negative. Updated Visit, May 15, 2023: Delia returns today with Garrett. She is doing fine with the Anastrozole, other than feeling much more fatigued the past few months. I would advise her to hold the Anastrozole for 2 weeks to see if there is improvement, and if none she can restart it after that. 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 She feels she is sleeping okay. Wakes up feeling very groggy, but does not have any problems with falling asleep during the day. Denies noticing any severe drowsiness while driving. She needs clearance from me for dental work due to her Prolia use. Herlast dose of Prolia was in 11/2022, next [...] Visit, November 14, 2022: Labs reviewed from [facility] Returns with Garrett Saw her [employer] and had Pap/pelvic and breast exam as of July 2022. Mammogram in July was negative. Got back from a wonderful trip to [place] and [place]. Updated Visit, May 16, 2022: Returns with Garrett. Survived COVID infection from end of March. Otherwise is doing well. No joint aches or pains from Arimidex. Oripta-eu-mhb a few days ago at age 89 so some family stress. Otherwise doing well. Still hasn't been approved for Prolia from January. 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 After discussion at multidisciplinary tumor board, we gaveher neoadjuvant chemotherapy with excellent response noted at time of surgery however, had residual1.5 cm ER + tumor and so completed [...] to pursue this with her PCP. I recallthe concern for fatty liver in the past [...] to obtain good care if she had toswitch. Needs to figure out insurance and rescheduling [...] with high risk of fracture. Scheduled for Proliatoday and has been taking Vit D + [...] setting for left IDC breast cancer. She hasnoted that her neuropathy a lot better with decreasing the Xeloda to 1000 mg bid. Constipation is still problematic for her. She is using dulcolax but I would also recommend senna and metamucil. Counts are safe to proceed. Updated Visit, August 28, 2020: Today Delia returns with her for follow up prior to stating cycle 5 of xeloda. Last cycle shedid suffer from constipation and was finally able to get relief from 3 dulcolax. She again has not had a bowel movement since 08/23 despite daily Metamucil. She currently is not having abdominal pain or nausea or vomiting. She also has developed red, tender and peeling feet b/l. Mostly on the balls of her feet. This weekis improved because it is her week off [...] fatigue - counts stable and otherwise she hasno complaints on today's evaluation for toxicity monitoring [...] discuss further adjuvant chemotherapy due to persisting disease.So far, she is doing very well and [...] 4 weeks. Of course she is disappointed tohear this, and appropriately so. Initial Visit, September 22, 2019: Tiny Marte presents accompanied by her Garrett saavedra for Hematology and Oncology evaluation. She is a 58 year old female who felt a lump in her Left breast in late April 2019 and Bilateral Mammography followed by ultrasound revealed two areas of suspision in both breasts. However, she had had prior silicone implants removed in April 2018 due to concern of leaking and there wasa question of retained silicone vs. scar formation. [...] 4 for final margin status) Comment: ER [place] and HER 2 ancillary studies are pending [...] Signed Out 01/28/2020 Leslye Vegas MD Addendum ([facility]) Date Reported: 01/31/2020 Breast Biomarker Reporting Template [...] consistent with invasive ductal carcinoma provisional grade 2-3.ER 80-90%, [place] less than 1%, HER-2/adalberto IHC 0 REVIEW OF SYSTEMS Per HPI and otherwise negative by full review of organ systems. ECOG PERFORMANCE STATUS: 0 PHYSICAL EXAMINATION: Vitals: BP 140/77 Pulse 66 Temp (Src) 97.4 (Temporal) Resp 16 Ht 5' 4.567 (1.64m) Wt 141lb 12.1 oz (64.3kg) SpO2 99% BMI 23.91 [...] prior reconstruction and also with cancer resection. Cristal exam is negative. Prior exam for reference: Chaperoned Breast Exam May 15, 2023 (Nico Fry) : Right breast has a vertical scar from bottomto nipple from nipple replacement reconstruction. Left breast has upper outer quadrant scar from past tumor resection with similar reconstruction scars to the R. Cristal exam is negative with scars from L [...] Diagnosis Date Breast cancer (HCC) 08/31/2019 Left, ER+NY-, HER2- GERD (gastroesophageal reflux disease) Hypothyroidism Other [...] which included preparing to see the patient, [id number] patient care, completing clinical documentation, obtaining and/or reviewing separately obtained history, performing a medically appropriate examination, counseling and educating the pat ient/family/caregiver, ordering medications, tests, or procedures, independently interpreting results (not separately reported), communicating results to the patient/family/caregiver, and care coordination (not separately reported). Mark Anthony Patton MD, CPE Hematology and Oncology Services Provided at: [place], [place] CC: Andreina Jj documented in this encounterLakehealth [facility]06-19-2024 NoteHNO ID: [id number] Author: MARK ANTHONY PATTON MD Service: ? Author Type: Physician Type: Progress Notes Filed: 11/19/2023 19:40 Note Text: NAME: Tiny Marte NO.: [id number] DATE OF SERVICE: November 19, 2023 (Abdi) Some elements in this clinic note that are critical to medical decision making have been carefully reviewed and included from a prior clinic note dated: May 15, 2023 (Abdi) Referring Provider: Dr. 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 ER positive and [place] and HER-2/adalberto were both negative. She completed [...] December 2023 - patient will call. (At [facility]) next DXA in 11/2024 DXA ordered, reschedule to 11/2024 at [facility]. HPI: CASE HISTORY: Reverse Chronological Order [...] right breast. 08/26/2019 - Bilateral diagnostic mammography: [facility]. Right breast with mild architectural [...] with Garrett Tumor markers check 11/13/2023 at [facility] were normal All labs normal aside rom lipids and fasting blood sugars. She's doing well otherwise. Brought her mom home with Hospice due to general failure to thrive and dementia. Chaperoned Breast Exam November 19, 2023 (Nico Pina) : Right breast is soft with prior reconstruction, Left breast is also soft with prior reconstruction and also with cancer resection. Cristal exam is negative. Updated Visit, May 15, 2023: Delia returns today with Garrett. She is doing fine with the Anastrozole, other than feeling much more fatigued the past few months. I would advise her to hold the Anastrozole for 2 weeks to see if there is improvement, and if none she can restart it after that. 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 She re (more content not included)...[facility]06-19-[facility] Nurse Note* Heavenly Trejo MA - 11/19/2023 10:10 AM EDT Patient had labs at [facility] they are in Care Everywhere. Heavenly Pina MA [facility]06-19-2024 Nurse Note* Heavenly Trejo MA - 11/19/2023 10:10 AM EDT Patient had labs at [facility] they are in Care Everywhere. Heavenly Pina MA documented in this encounterLakehealth [facility]point [facility] Center02-14-2024 Miscellaneous Notes* Telephone Encounter - Grace Falk RN - 07/16/2023 9:20 AM EST Note completed, review and signed. Faxed to Dr Resendiz office. Grace Falk RN * Telephone Encounter - Mark Anthony Patton MD - 07/15/2023 6:40 PM EST She can proceed from my standpoint as long as you take precautions in wound healing for her jaw which I'm sure you're aware of. Just add that line and should be great - Thanks! * Telephone Encounter - Grace Falk RN - 07/15/2023 3:13 PM EST Pt sent MyChart with Door Attendant information: The radio communications superintendent is Dr Aidan Resendiz, phone is [phone] email is [email or web address] I have another consultation with him on [...] would like any changes. documented in this encounterLakehealth [facility]point Medical Center12-14-2023 NoteHNO ID: [id number] Author: Mark Anthony Patton MD Service: ? Author Type: Physician Type: Progress Notes Filed: 05/15/2023 8:36 PM Note Text: NAME: Tiny Marte [facility] NO.: [id number] DATE OF SERVICE: May 15, 2023 (Abdi) Some elements in this clinic note that are critical to medical decision making have been carefully reviewed and included from a prior clinic note dated: November 14, 2022 (Abdi) Referring Provider: Dr. 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 ER positive and [place] and HER-2/adalberto were both negative. She completed [...] 12/2023 DXA ordered, scheduled for 12/2023 at [facility]. HPI: Case History: 06/05/2020- 11/13/2020: adjuvant [...] the right breast. 08/26/2019 bilateral diagnostic mammography: [facility]. Right breast with mild architectural [...] restart it after that. 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 Mammogram in July was negative. Got back from a wonde (more content not included)...[facility] 11-29-2022 Miscellaneous Notes* Telephone Encounter - Sammie Siegel APRN.KAMILA - 11/29/2022 3:30 PM EDT The following approved medication requests have been transmitted electronically. Requested Prescriptions Signed Prescriptions Disp Refills anastrozole (ARIMIDEX) 1 mg tablet 90 tablet 3 Sig: TAKE 1 TABLET ONCE DAILY Authorizing Provider: SAMMIE SIEGEL APRN.BODY FITTER documented in this encounterLakehealth Tripoint Medical Center12-15-2022 Instructions* Patient Instructions* Mark Anthony Patton MD - 05/16/2022 11:08 AM EST Mammograms in [facility] - in 6 months Please obtain labs same day at [facility]. RTC in 6 months to review mammogram and labs, examine - 30 mins Continue Anastrozole. Prolia when approved - at [facility] and then every 6 months Will order Dexa at next visit. documented in this encounterLakehealth Tripoint Medical Center12-15-2022 History of Present illness Narrative* Mark Anthony Patton MD - 05/16/2022 10:30 AM EST Images from the original note were not included. NAME: Tiny Marte [facility] NO.: [id number] DATE OF SERVICE: May 16, 2022 (Abdi) Some elements in this clinic note that are critical to medical decision making have been carefully reviewed and included from a prior clinic note dated: November 22, 2021 (Abdi) Referring Provider: Dr. Jason Tamez Additional Clinicians involved in Tiny Kwanrath's care: Haley Person, Andreina Damico, Suleman Carmona CC: Here for follow up ASSESSMENT: 61 year old woman with Left IDC Breast ER+/[place](-) HER-2 (IHC) 0 ypT1C N0 G3 - OncotypeDx 49 initially diagnosed in 08/31/2019. Tumor was in the axillary tail with no clinical evidence of axillary LN's. OncotypeDX RS (49) was High and therefore we gave her neoadjuvant therapy after discussion at tumorboard. She had had an excellent clinical response to neoadjuvant chemotherapy. 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 She completed adjuvant radiation on 04/04/2020 and also adjuvantXeloda 1500 mg BID x 14 days every [...] Repeat Dexa in 11/2022 PLAN: Mammograms in [facility] - in 6 months Please obtain labs same day at [facility]. RTC in 6 months to review mammogram and labs, examine - 30 mins Continue Anastrozole. Prolia when approved - at [facility] and then every 6 months Will order Dexa at next visit. TREATMENT TO DATE: 3. 06/05/2020- 11/13/2020: adjuvant Xeloda 1500 mg BID X 14 days every 21 days x 8 cycles; dose reduced to 1000mg BID x 14 days on and 7 days off with cycle 5. 2. 03/08/2020-04/04/2020: adjuvant radiation Left breast 4005cGy in 15 fractions with surgical cavityboost 1000 cGy in 5 fractions 1. 10/11/2019 - December 13, 2019: Neoadjuvant taxotere + cytoxan 4 cycles HPI: Updated Visit, May 16, 2022: Returns with Garrett. Survived COVID infection from end of March. Otherwise is doing well. No joint aches or pains from Arimidex. [id number] a few days ago at age 89 so some family stress. Otherwise doing well. Still hasn't been approved for Prolia from January. 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 After discussion at multidisciplinary tumor board, we gaveher neoadjuvant chemotherapy with excellent response noted at time of surgery however, had residual1.5 cm ER + tumor and so completed [...] to pursue this with her PCP. I recallthe concern for fatty liver in the past [...] to obtain good care if she had toswitch. Needs to figure out insurance and rescheduling [...] with high risk of fracture. Scheduled for Proliatoday and has been taking Vit D + [...] setting for left IDC breast cancer. She hasnoted that her neuropathy a lot better with decreasing the Xeloda to 1000 mg bid. Constipation is still problematic for her. She is using dulcolax but I would also recommend senna and metamucil. Counts are safe to proceed. Updated Visit, August 28, 2020: Today Delia returns with her for follow up prior to stating cycle 5 of xeloda. Last cycle shedid suffer from constipation and was finally able to get relief from 3 dulcolax. She again has not had a bowel movement since 08/23 despite daily Metamucil. She currently is not having abdominal pain or nausea or vomiting. She also has developed red, tender and peeling feet b/l. Mostly on the balls of her feet. This weekis improved because it is her week off [...] fatigue - counts stable and otherwise she hasno complaints on today's evaluation for toxicity monitoring [...] discuss further adjuvant chemotherapy due to persisting disease.So far, she is doing very well and [...] 4 weeks. Of course she is disappointed tohear this, and appropriately so. Initial Visit, September 22, 2019: Tiny Marte presents accompanied by her Garrett today for Hematology and Oncology evaluation. She is a 58 year old female who felt a lump in her Left breast in late April 2019 and Bilateral Mammography followed by ultrasound revealed two areas of suspision in both breasts. However, she had had prior silicone implants removed in April 2018 due to concern of leaking and there wasa question of retained silicone vs. scar formation. [...] genetics counseling and I will refer her. RADIOG RAPHIC DATA: 2. 09/30/2019 bilateral MRI breast: Enhancing [...] right breast. 1. 08/26/2019 bilateral diagnostic mammography: [facility]. - Right breast with mild [...] 4 for final margin status) Comment: ER [place] and HER 2 ancillary studies are pending and will follow in an addendum 4. Left breast mass, additional margin medial, excision: Benign fibroadipose tissue, no residual malignancy present at new margin CANCER CASE SUMMARY Procedure: lumpectomy Specimen laterality: Left Tumor size: 1.5x 1.5 x 1.2 cm Histologic type of invasive carcinoma: ductal Histologic grade: [place] histologic score: 8 Glandular (acinar)/tubular differentiation: 3 [...] consistent with invasive ductal carcinoma provisional grade 2-3.ER 80-90%, [place] less than 1%, HER-2/adalberto IHC 0 REVIEW OF SYSTEMS Per HPI and otherwise negative by full review of organ systems. ECOG PERFORMANCE STATUS: 0 PHYSICAL EXAMINATION: Vitals: BP 118/83 Pulse 71 Temp (Src) 97.7 (Temporal) Resp 16 Ht 5' 4.567 (1.64m) Wt 141lb (64.0kg) SpO2 98% BMI 23.78 kg/(m^2). Body [...] left breast (HCC) (primary encounter diagnosis) Plan: [facility] DIAGNOSTIC BILAT, CBC + DIFF, COMP METABOLIC PANEL PAST MEDICAL HISTORY Diagnosis Date Breast cancer (HCC) 08/31/2019 Left, ER+NY-, HER2- GERD (gastroesophageal reflux disease) Hypothyroidism Other [...] which included preparing to see the patient, [id number] patient care, completing clinical documentation, performing a medically appropriate examination, counseling and educating the patient/family/caregiver, ordering medications, tests, or p rocedures, independently interpreting results (not separately reported) and communicating results to the patient/family/caregiver. Mark Anthony Patton MD, [place], [place] CC: Dr. Jef Carmona Haley Andreina Person documented in this encounterLakehealth [facility] Center12-12-2022 Miscellaneous Notes* Telephone Encounter - Magdalena Chacon Ma - 05/13/2022 11:09 AM EST If needed, place lab orders for 05/16/22. Magdalena Chacon Ma documented in this encounterLakehealth Tripoint Medical Center11-28-2022 Miscellaneous Notes* Telephone Encounter - Debra Richardson RPh - 04/29/2022 2:35 PM EST Received call from Tiny requesting that authorization be withdrew for Prolsurya so she may obtain injections at a different sight of care. Patient provided phone number opt 2 Call placed and request submitted by Dav Richardson rPh. Reference # for request: [id number] provided by Jude Baron Call placed back to Tiny to give her the reference number. Dav Richardson rPh documented in this encounterLakehealth Tripoint [facility] Center08-23-2022 NotePROCEDURE: XR FOOT RT MIN 3 VIEWS COMPARISON: 12/25/2021 HISTORY: Pain [...] Electronically authenticated by: RANJANA ZHANG Date: 2022-01-22 17:10[facility] NotePROCEDURE: XR FOOT RT MIN 3 VIEWS COMPARISON: 11/20/2021 HISTORY: Pain [...] Electronically authenticated by: RANJANA ZHANG Date: 2021-12-26 06:57[facility]06-21-2022 NotePROCEDURE: XR FOOT RT MIN 3 VIEWS COMPARISON: None. HISTORY: Pain in right foot FINDINGS: BONES:Acute extra-articular oblique fracture through the diaphysis of the fourth proximal phalanx with distraction 2 mm. No dislocation. SOFT TISSUES:Negative. No visible soft tissue swelling. EFFUSION:None visible. OTHER: Negative. IMPRESSION: Acute oblique extra-articular fracture diaphysis of the fourth proximal phalanx Electronically authenticated by: RANJANA ZHANG Date: 2021-11-20 09:43[facility] note* Diagnosis Invasive ductal carcinoma of left breast (HCC)- Primary [facility]* Diagnosis Invasive ductal carcinoma of left breast (HCC)- Primary documented in this encounter [facility] note* Diagnosis Invasive ductal carcinoma of left breast (HCC) documented [facility]* Diagnosis Invasive ductal carcinoma of left breast (HCC)- Primary Aromatase inhibitor use Use of aromatase inhibitors documented in this encounter [facility]* Diagnosis Invasive ductal carcinoma of left breast (HCC) documented [facility]* Diagnosis Disorder of bone- Primary Disorder of bone and cartilage, unspecified documented in this encounter [facility] note* Diagnosis Pleural effusion, not elsewhere classified- Primary Lymphadenopathy, mediastinal [facility] noteNo assessment information availableU[facility] Work Phone: Evaluation note* Diagnosis Invasive ductal carcinoma of breast, female, left- Primary [facility]* Diagnosis Bony pelvic pain- Primary [facility]* Diagnosis Pleural effusion, not elsewhere classified- Primary [facility]* Diagnosis Invasive ductal carcinoma of left breast- Primary Carcinoma of breast metastatic to bone, unspecified laterality [facility]* Diagnosis 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, unspecified laterality [facility]* Diagnosis Onset Date Resolution Status Breast cancer, left breast a cute Metastasis to bone acute Metastasis to lung acute Pleural effusion [facility] Work Phone: Evaluation note* Diagnosis Carcinoma of breast metastatic to bone, unspecified laterality- Primary [facility]* Diagnosis Rib pain on right side- Primary Pre-diabetes Other abnormal glucose Mixed hyperlipidemia (CMS/HCC) Mixed hyperlipidemia Pericardial effusion- Primary Unspecified disease of pericardium Abnormal CT of the chest Nonspecific (abnormal) findings on radiological and other examination of other intrathoracic organs Pleural effusion, not elsewhere classified- Primary Lymphadenopathy, mediastinal Pericardial effusion Unspecified disease of pericardium Aromatase inhibitor use Hx of breast cancer Personal history of malignant neoplasm of breast Malignant pleural effusion- Primary documented in this encounter [facility]* Diagnosis Pleural effusion- Primary Unspecified pleural effusion Pleural effusion Unspecified pleural effusion Malignant pleural effusion [facility] Diagnosis Pleural effusion Unspecified pleural effusion [facility]* Diagnosis 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 [facility]* Diagnosis 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 [facility]* Diagnosis 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 [facility]* Diagnosis Carcinoma of breast metastatic to bone, unspecified laterality- Primary [facility]* Diagnosis Lytic bone lesion of hip Other disorders of bone and cartilage [facility]* Diagnosis 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 [facility]* Diagnosis Bone lesion- Primary Disorder of bone and cartilage, unspecified [facility]* Diagnosis Rib pain on right side- Primary Pre-diabetes Other abnormal glucose Mixed hyperlipidemia (CMS/HCC) Mixed hyperlipidemia Pericardial effusion- Primary Unspecified disease of pericardium Abnormal CT of the chest Nonspecific (abnormal) findings on radiological and other examination of other intrathoracic organs Pleural effusion, not elsewhere classified- Primary Lymphadenopathy, mediastinal Pericardial effusion Unspecified disease of pericardium Aromatase inhibitor use Hx of breast cancer Personal history of malignant neoplasm of breast Gastroesophageal reflux disease without esophagitis Esophageal reflux documented in this encounter [facility]* Diagnosis Invasive ductal carcinoma of left breast- Primary 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 [facility] 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 [facility] Diagnosis Right hip pain- Primary Pain in joint, pelvic region and thigh documented in this encounter [facility]* Diagnosis Pericardial effusion- Primary Unspecified disease of pericardium Abnormal CT of the chest Nonspecific (abnormal) findings on radiological and other examination of other intrathoracic organs documented in this encounter [facility]* Diagnosis Pericardial effusion- Primary Unspecified disease of pericardium documented in this encounter [facility]* Diagnosis 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, unspecified laterality- Primary [facility] Diagnosis Cancer related pain- Primary Neoplasm related pain (acute) (chronic) Neuropathic pain Neuralgia, neuritis, and radiculitis, unspecified High risk medication use Encounter for long-term (current) use of other medications Therapeutic opioid induced constipation Nausea Nausea alone Decreased appetite Anorexia Palliative care by specialist Carcinoma of breast metastatic to bone, unspecified laterality [facility] Diagnosis Carcinoma of breast metastatic to bone, unspecified laterality- Primary [facility] Diagnosis Cancer related pain Neoplasm related pain (acute) (chronic) [facility] Diagnosis 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 [facility] Diagnosis 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 [facility] Diagnosis Rib pain on right side- Primary Pre-diabetes Other abnormal glucose Mixed hyperlipidemia (CMS/HCC) Mixed hyperlipidemia documented in this encounter [facility]* Diagnosis Other osteoporosis without current pathological fracture (CMS/HCC)- Primary Hx of breast cancer Personal history of malignant neoplasm of breast Invasive ductal carcinoma of left breast (CMS/HCC) 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, subsequent encounter Pleural effusion, not elsewhere classified documented in this encounter [facility]* Diagnosis Bony pelvic pain- Primary Right hip pain Pain in joint, pelvic region and thigh documented in this encounter [facility]* Diagnosis Bony pelvic pain- Primary Right hip pain Pain in joint, pelvic region and thigh Hx of breast cancer Personal history of malignant neoplasm of breast Other osteoporosis without current pathological fracture (CMS/HCC) documented in this encounter [facility]* Diagnosis Right hip pain- Primary Pain in joint, pelvic region and thigh Lytic bone lesion of hip documented in this encounter [facility]* Diagnosis Bony pelvic pain- Primary documented in this encounter [facility]* Diagnosis Lymphadenopathy, mediastinal- Primary documented in this encounter [facility]* Diagnosis Pericardial effusion- Primary Unspecified disease of pericardium documented in this encounter [facility]* Diagnosis Pleural effusion, not elsewhere classified- Primary Lymphadenopathy, mediastinal Pericardial effusion Unspecified disease of pericardium Aromatase inhibitor use Hx of breast cancer Personal history of malignant neoplasm of breast documented in this encounter [facility]* Diagnosis Carcinoma of breast metastatic to bone, unspecified laterality- Primary [facility] Diagnosis 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 [facility] Diagnosis FTT (failure to thrive) in adult- Primary Adult failure to thrive Difficult intravenous access Other specified conditions influencing health status Carcinoma of breast metastatic to bone, unspecified laterality Palliative care by specialist Cancer associated pain Neoplasm related pain (acute) (chronic) Pericardial effusion Unspecified disease of pericardium Pleural effusion, not elsewhere classified Acute hypoxic respiratory failure Hypoxia Hypoxemia [facility] Additional Instructions Please follow up with your Oncologist as scheduled. Please wear home oxygen at 2l with any activity.[facility] Work Phone: Reason for referral (narrative)* Diagnostic Procedure Only (Routine) - Waiting for Response Specialty Diagnoses / Procedures Referred By Contac t Referred To Contact [facility] IM[facility]ING Diagnoses Invasive ductal carcinoma of left breast (HCC) Procedures DION DIAGNOSTIC BILAT DIAGNOSTIC MAMMOGRAPHY COMPUTER-AIDED DETCJ Mark Anthony Francis MD [address] [place] [address] [place] [address] [facility] [address] [place] [phone] Referral ID Status Reason Start Date Expiration Date Visits Requested Visits Authorized [id number] Waiting for Response Auto-Generat ed Referral 11/14/2022 06/15/2023 1 1 [facility] for referral (narrative)* Diagnostic Procedure Only (Urgent) - New Request Specialty Diagnoses / Procedures Referred By Rosalee ye Referred To Contact MOLECULAR & FUNCTIONAL IMAGING Diagnoses Disorder of bone Procedures NM PET/CT WHOLE BODY INITIAL PET IMAGING FOR CT ATTENUATION WHOLE BODY Mark Anthony Patton MD [address] [place] [address] [place] [address] Molecular & Functional Imaging [address] [place] [address] Referral ID Status Reason Start Date Expiration Date Visits Requested Visits Authorized [id number] New Request Auto-Generat ed Referral 02/13/2024 03/14/2025 1 1 [facility] for referral (narrative)* Unlisted Procedure Code (Routine) - New Request Specialty Diagnoses / Procedures Referred By Rosalee ye Referred To Contact Procedures DIRECT ADMIT REQUEST Chepe Chambers MD [address] [place] [address] Referral ID Status Reason Start Date Expiration Date V isits Requested Visits Authorized [id number] New Request 03/17/2024 04/11/2025 1 1 [facility] for referral (narrative)* Consultation (Routine) - Patient to Arrange Specialty Diagnoses / Procedures Referred By Rosalee ye Referred To Contact Physical Therapy Diagnoses 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, unspecified laterality Chepe Chambers MD [address] [place] [address] Referral ID Status Reason Start Date Expiration Date V isits Requested Visits Authorized [id number] Patient to Arrange 04/14/2024 05/09/2025 1 1 Scheduling Instructions [facility] (Orthopedic, Sports Rehab) [address], [address], [place] [address] [facility] [place] (Burn, Neurological, Orthopedic, Pelvic Health, Sports Rehab) [address] [facility], [address], [place] [address] Outpatient Care [facility] (Orthopedic Rehab) [address] [facility], [address], [place] [address] Outpatient [facility] [place] (Orthopedic, Pelvic Health, Sports) [address] [facility], [address], [place] [address] Outpatient Care [facility] [address] [facility], [address], [place] [address] Outpatient [facility] [place] (Orthopedic, Pelvic Health, Sports Rehab) [address], [address], [place] [address] Outpatient [facility] (Aquatic, Burn, Neurological, Orthopedic, Pelvic Health Rehab) [address] [facility] 2[address] Floor [address] [facility] [place] (Burn, Neurological, Orthopedic, Pelvic Health, Sports Rehab) [address] [facility], [address], [place] [address] Outpatient Rehabilitation [facility] (Neurological, Orthopedic Rehab) [address] [place] [address] [facility] (Aquatic, Burn, Neurological, Orthopedic, Pelvic Health Rehab) [address] , [place] [address] Outpatient Rehabilitation [place] (Burn, Neurological, Orthopedic Rehab) [address] [place] [address] Sports Medicine [facility] at [facility] (Orthopedic, Sports Rehab) [address], [place] [address] Sports Medicine Rehabilitation [facility] (Orthopedic, Sports Rehab) [address], [address], [place] [address] Sports Medicine Rehabilitation [facility] (Orthopedic, Sports Rehab) [address], [place] [address] Sports Medicine Rehabilitation [facility] (Aquatic, Orthopedic, Pelvic Health, Sports Rehab) [address], [place] [address] Sports Medicine Rehabilitation [facility] (Orthopedic, Sports Rehab) [address] [place] [address] Sports Medicine Rehabilitation [facility] (Orthopedic, Sports Rehab) [address] [facility] [address] [facility], [address], [place] [address] * Diagnostic X-Ray (Routine) - New Request Specialty Diagnoses / Procedures Referred By Contac t Referred To Contact Diagnoses 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, unspecified laterality Procedures XR FEMUR RIGHT 2+ VIEWS Chepe Chambers MD [address] [place] [address] Referral ID Status Reason Start Date Expiration Date V isits Requested Visits Authorized [id number] New Request 04/14/2024 05/09/2025 1 1 [facility] for referral (narrative)* Unlisted Procedure Code (Routine) - New Request Specialty Diagnoses / Procedures Referred By Contac t Referred To Contact Procedures DIRECT ADMIT REQUEST Davide Tatum, PA-C [address] [place] [address] Referral ID Status Reason Start Date Expiration Date V isits Requested Visits Authorized [id number] New Request 05/18/2024 06/12/2025 1 [facility] Consultation (Urgent) - Pending Review Specialty Diagnoses / Procedures Referred By Contac t Referred To Contact Pulmonary Disease Diagnoses Lymphadenopathy, mediastinal Procedures [place] OFFICE/OUTPATIENT NEW HIGH MDM 60 MINUTES Curtis Aguirre NP [address] [place] [address] Referral ID Status Reason Start Date Expiration Date Visits Requested Visits Authorized [id number] Pending Review Specialty Services Required 02/19/2024 08/17/2024 1 1 Scheduling Instructions Pt needs provider with affiliation with [facility] or [facility] d/t her insurance. Please schedule [facility], and notify me when scheduled [facility] for referral (narrative)* Consultation (Urgent) - Pending Review Specialty Diagnoses / Procedures Referred By Contac t Referred To Contact Cardiology Diagnoses Pericardial effusion Procedures [place] OFFICE/OUTPATIENT NEW HIGH MDM 60 MINUTES Curtis Aguirre NP [address] [place] [address] Matteo Gurrola MD [address] [place] [address] Referral ID Status Reason Start Date Expiration Date Visits Requested Visits Authorized [id number] Pending Review Specialty Services Required 02/23/2024 08/21/2024 1 1 Scheduling Instructions Verify if they take pt's insurance [facility] for visit Narrative* Auth/Cert Specialty Diagnoses / Procedures Referred By Contac t Referred To Contact Diagnoses Bone lesion Chepe Chambers MD [address] [place] [address] [facility] [address] [place] [address] Referral ID Status Reason Start Date Expiration Date Visits Re quested Visits Authorized [id number] 1 1 [facility]* Auth/Cert Specialty Diagnoses / Procedures Referred By Contfaheem t Referred To Contact Diagnoses FTT, n/v, pain, breast ca Ross Parra, MBBS [address] [place] [address] [facility] [address] [place] [address] Referral ID Status Reason Start Date Expiration Date Visits Re quested Visits Authorized [id number] 1 1 [facility] Summary Purpose Family History No Family History Records FoundNo Family History Records FoundNo Family History Records FoundNo Family History Records FoundNo Family History Records FoundNo Family History Records FoundNo Family History Records FoundNo Family History Records FoundNo Family History Records Found [place] Directives Advance Directive Response Recorded Date/ Time [place] Directives No July 10:56am Date Activated Date Inactivated Comments 04/06/2024 4:57 PM Date Activated Date Inactivated Comments 04/06/2024 9:39 AM 04/06/2024 4:57 PM Date Activated Date Inactivated Comments 04/06/2024 4:57 PM 04/07/2024 3:36 PM Date Activated Date Inactivated Comments 04/06/2024 9:39 AM 04/06/2024 4:57 PM Documents on File Type Date Recorded Patient Cap Maker Expl anation [place] Directives/Living Will 05/12/2024 4:36 PM HealthCare Power of Commercial Litigation Associate 05/12/2024 4:36 PM Documents on File Type Date Recorded Patient Cap Maker Expl anation [place] Directives/Living Will 05/12/2024 4:36 PM HealthCare Power of Commercial Litigation Associate 05/12/2024 4:36 PM Date Activated Date Inactivated Comments 05/18/2024 7:26 PM Date Activated Date Inactivated Comments 05/18/2024 7:26 PM Documents on File Type Date Recorded Patient Cap Maker Expl anation [place] Directives/Living Will 05/12/2024 4:36 PM HealthCare Power of Commercial Litigation Associate 05/12/2024 4:36 PM HealthCare Power of Commercial Litigation Associate 04/21/2024 [place] Directives/Living Will 04/21/2024 Reason for Referral Specialty Diagnoses / Procedures Referred By Contac t Referred To Contact Social Work Diagnoses 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, unspecified laterality Carlos He MD [address] [place] [address] Referral ID Status Reason Start Date Expiration Date V isits Requested Visits Authorized [id number] New Request 03/15/2024 04/09/2025 1 1 Specialty Diagnoses / Procedures Referred By Contac t Referred To Contact Genetics Diagnoses Carcinoma of breast metastatic to bone, unspecified laterality Carlos He MD [address] [place] [address] Referral ID Status Reason Start Date Expiration Date V isits Requested Visits Authorized [id number] New Request 03/15/2024 04/09/2025 1 1 Specialty Diagnoses / Procedures Referred By Contac t Referred To Contact Diagnoses 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, unspecified laterality Procedures XR PELVIS 3+ VIEWS XR PELVIS Chepe Chambers MD [address] [place] [address] Referral ID Status Reason Start Date Expiration Date V isits Requested Visits Authorized [id number] New Request 03/15/2024 04/09/2025 1 1 Specialty Diagnoses / Procedures Referred By Contac t Referred To Contact Diagnoses 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, unspecified laterality Procedures XR FEMUR RIGHT 2+ VIEWS Chepe Chambers MD [address] [place] [address] Referral ID Status Reason Start Date Expiration Date V isits Requested Visits Authorized [id number] New Request 03/15/2024 04/09/2025 1 1 Specialty Diagnoses / Procedures Referred By Contac t Referred To Contact Diagnoses 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, unspecified laterality Procedures XR FEMUR LEFT 2+ VIEWS Chepe Chambers MD [address] [place] [address] Referral ID Status Reason Start Date Expiration Date V isits Requested Visits Authorized [id number] New Request 03/15/2024 04/09/2025 1 1 Specialty Diagnoses / Procedures Referred By Contac t Referred To Contact Diagnoses 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 Procedures MRI SPINE THORACIC WITH AND WITHOUT CONTRAST CHG MRI SPINAL CANAL THORACIC W/O & W/CONTR Adria Reyes MD [address] [place] [address] Referral ID Status Reason Start Date Expiration Date V isits Requested Visits Authorized [id number] New Request 04/09/2024 05/04/2025 1 1 Specialty Diagnoses / Procedures Referred By Contac t Referred To Contact Diagnoses 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 Procedures MRI SPINE CERVICAL WITH AND WITHOUT CONTRAST CHG MRI SPINAL CANAL CERVICAL W/O & W/CONTR Adria Reyes MD [address] [place] [address] Referral ID Status Reason Start Date Expiration Date V isits Requested Visits Authorized [id number] New Request 04/09/2024 05/04/2025 1 1 Specialty Diagnoses / Procedures Referred By Contac t Referred To Contact Diagnoses Invasive ductal carcinoma of left breast Procedures ECG Davide Tatum, RAVI [address] [place] [address] Referral ID Status Reason Start Date Expiration Date V isits Requested Visits Authorized [id number] New Request 04/14/2024 05/09/2025 1 1 Specialty Diagnoses / Procedures Referred By Contac t Referred To Contact Diagnoses Right hip pain Curtis Aguirre, [employer] [address] [place] [address] Referral ID Status Reason Start Date Expiration Date V isits Requested Visits Authorized [id number] Pending Review 1 1 Specialty Diagnoses / Procedures Referred By Contac t Referred To Contact Radiology Diagnoses Pericardial effusion Procedures Echocardiogram 2D complete Curtis Aguirre, SKYE [address] [place] [address] Referral ID Status Reason Start Date Expiration Date Visits Requested Visits Authorized [id number] Incomplete Perform Procedure 02/16/2024 08/14/2024 1 1 Specialty Diagnoses / Procedures Referred By Contac t Referred To Contact Radiology Diagnoses Pericardial effusion Procedures Echocardiogram 2D complete Curtis Aguirre, [employer] [address] [place] [address] [facility] [address] [place] [address] Referral ID Status Reason Start Date Expiration Date Visits Requested Visits Authorized [id number] Incomplete Perform Procedure 02/17/2024 08/15/2024 1 1 Specialty Diagnoses / Procedures Referred By Contac t Referred To Contact Diagnoses 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 Procedures ECG Davide Tatum, RAVI [address] [place] [id number] Referral ID Status Reason Start Date Expiration Date V isits Requested Visits Authorized [id number] New Request 04/28/2024 05/23/2025 1 1 Specialty Diagnoses / Procedures Referred By Contac t Referred To Contact Diagnoses Pleural effusion, not elsewhere classified Procedures CT chest wo IV contrast Curtis Aguirre NP [address] [place] [address] Referral ID Status Reason Start Date Expiration Date V isits Requested Visits Authorized [id number] Pending Review 01/28/2024 07/26/2024 1 1 Specialty Diagnoses / Procedures Referred By Contac t Referred To Contact Diagnoses Right hip pain Lytic bone lesion of hip Procedures CT hip right wo IV contrast Curtis Aguirre, SKYE [address] [place] [address] Referral ID Status Reason Start Date Expiration Date V isits Requested Visits Authorized [id number] Pending Review 01/31/2024 07/29/2024 1 1 Specialty Diagnoses / Procedures Referred By Contac t Referred To Contact Diagnoses Pericardial effusion Procedures ECHOCARDIOGRAM [place] ECHO TTHRC R-T 2D W/WOM-MODE COMPL SPEC&COLR D CemAlissa scruggs, INTERNAL AFFAIRS COMMANDER-BODY FITTER [address] [place] [address] Referral ID Status Reason Start Date Expiration Date V isits Requested Visits Authorized [id number] Pending Review 06/01/2024 06/26/2025 1 1 Specialty Diagnoses / Procedures Referred By Contac t Referred To Contact Medical Oncology / Oncology Diagnoses Carcinoma of breast metastatic to bone, unspecified laterality Hypoxia Alissa Yee, INTERNAL AFFAIRS COMMANDER-BODY FITTER [address] [place] [id number] Referral ID Status Reason Start Date Expiration Date V isits Requested Visits Authorized [id number] New Request 06/01/2024 06/26/2025 1 1 Specialty Diagnoses / Procedures Referred By Contac t Referred To Contact Cardiovascular Medicine Diagnoses Pericardial effusion Maricarmen House PA-C [address] [place] [address] Referral ID Status Reason Start Date Expiration Date V isits Requested Visits Authorized [id number] New Request 05/31/2024 06/25/2025 1 1 Scheduling Instructions Please schedule this patient in the Department of Cardiology. Specialty Diagnoses / Procedures Referred By Contac t Referred To Contact Echocardiography Diagnoses Pericardial effusion Procedures ECHOCARDIOGRAM [place] ECHO TTHRC R-T 2D W/WOM-MODE COMPL SPEC&COLR D Maricarmen House PA-C [address] [place] [address] Echocardiography [place] [address] [place] [address] Referral ID Status Reason Start Date Expiration Date V isits Requested Visits Authorized [id number] Pending Review 05/31/2024 06/25/2025 1 1 Specialty Diagnoses / Procedures Referred By Contac t Referred To Contact Procedures ECG Michaela Ramsay, INTERNAL AFFAIRS COMMANDER-BODY FITTER [address] [place] [address] Referral ID Status Reason Start Date Expiration Date V isits Requested Visits Authorized [id number] New Request 05/26/2024 06/20/2025 1 1 Specialty Diagnoses / Procedures Referred By Contac t Referred To Contact Procedures ECG Marysol Downey, INTERNAL AFFAIRS COMMANDER-BODY FITTER [address] [place] [address] Referral ID Status Reason Start Date Expiration Date V isits Requested Visits Authorized [id number] New Request 05/24/2024 06/18/2025 1 1 Specialty Diagnoses / Procedures Referred By Contac t Referred To Contact Procedures ECG Temo Simmons, RAVI [address], [address] [place] [address] Referral ID Status Reason Start Date Expiration Date V isits Requested Visits Authorized [id number] New Request 05/23/2024 06/17/2025 1 1 Specialty Diagnoses / Procedures Referred By Contac t Referred To Contact Diagnoses Carcinoma of breast metastatic to bone, unspecified laterality Johnny Nevarez, INTERNAL AFFAIRS COMMANDER-BODY FITTER [address] [place] [address] Referral ID Status Reason Start Date Expiration Date V isits Requested Visits Authorized [id number] New Request 05/21/2024 06/15/2025 1 1 Specialty Diagnoses / Procedures Referred By Contac t Referred To Contact [facility] [address] [place] [address] Referral ID Status Reason Start Date Expiration Date Visits Re quested Visits Authorized Specialty Diagnoses / Procedures Referred By Contac t Referred To Contact Procedures PLATELET MONITORING PER PROTOCOL Gabrielle Mustafa, INTERNAL AFFAIRS COMMANDER-BODY FITTER [address] [place] [address] Referral ID Status Reason Start Date Expiration Date V isits Requested Visits Authorized [id number] New Request 05/18/2024 06/12/2025 1 1 Specialty Diagnoses / Procedures Referred By Contac t Referred To Contact Procedures DVT/VTE RISK ASSESSMENT Gabrielle Mustafa Bebeto, INTERNAL AFFAIRS COMMANDER-BODY FITTER [address] [place] [address] Referral ID Status Reason Start Date Expiration Date V isits Requested Visits Authorized [id number] New Request 05/18/2024 06/12/2025 1 1 Chief Complaint and Reason for Visit Chief Complaint h/o breast ca pleura l effusion J90 pleural effusion Reason for Visit Breast cancer, left breast Metastasis to bone Metastasis to lung Pleural effusion Additional Source Comments INFORMATION SOURCE (unrecogn ized section and content) DATE CREATED AUTHOR 04/01/2021 [facility] DATE CREATED AUTHOR AUTHOR'S ORGANIZ ATION 09/06/2022 [facility] DATE CREATED AUTHOR AUTHOR'S ORGANIZ ATION 02/28/2024 [facility] DATE CREATED AUTHOR AUTHOR'S ORGANIZ ATION 03/16/2024 [facility] DATE CREATED AUTHOR AUTHOR'S ORGANIZ ATION 04/03/2024 [facility] DATE CREATED AUTHOR AUTHOR'S ORGANIZ ATION 04/06/2024 [facility] DATE CREATED AUTHOR AUTHOR'S ORGANIZ ATION 04/08/2024 [facility] DATE CREATED AUTHOR AUTHOR'S ORGANIZ ATION 04/24/2024 [facility] DATE CREATED AUTHOR AUTHOR'S ORGANIZ ATION 06/01/2024 [facility] Source Comments (unrecognize d section and content) In the event this informatio n is protected by the Federal Confidentiality of Alcohol and Drug Abuse Patient Records regulations: The Federal rules restrict any use of the information to criminally investigate or prosecute any alcohol or drug abuse patient.[facility] the event this information is protected by the Federal Confidentiality of Alcohol and Drug Abuse Patient Records regulations: The Federal rules restrict any use of the information to criminally investigate or prosecute any alcohol or drug abuse patient.[facility] the event this information is protected by the Federal Confidentiality of Alcohol and Drug Abuse Patient Records regulations: The Federal rules restrict any use of the information to criminally investigate or prosecute any alcohol or drug abuse patient.[facility] the event this information is protected by the Federal Confidentiality of Alcohol and Drug Abuse Patient Records regulations: The Federal rules restrict any use of the information to criminally investigate or prosecute any alcohol or drug abuse patient.[facility] Center[facility] the event this information is protected by the Federal Confidentiality of Alcohol and Drug Abuse Patient Records regulations: The Federal rules restrict any use of the information to criminally investigate or prosecute any alcohol or drug abuse patient.[facility] Center[facility] the event this information is protected by the Federal Confidentiality of Alcohol and Drug Abuse Patient Records regulations: The Federal rules restrict any use of the information to criminally investigate or prosecute any alcohol or drug abuse patient.[facility] Center[facility] the event this information is protected by the Federal Confidentiality of Alcohol and Drug Abuse Patient Records regulations: The Federal rules restrict any use of the information to criminally investigate or prosecute any alcohol or drug abuse patient.[facility] Center[facility] the event this information is protected by the Federal Confidentiality of Alcohol and Drug Abuse Patient Records regulations: The Federal rules restrict any use of the information to criminally investigate or prosecute any alcohol or drug abuse patient.[facility] Center[facility] the event this information is protected by the Federal Confidentiality of Alcohol and Drug Abuse Patient Records regulations: The Federal rules restrict any use of the information to criminally investigate or prosecute any alcohol or drug abuse patient.[facility] Center[facility] the event this information is protected by the Federal Confidentiality of Alcohol and Drug Abuse Patient Records regulations: The Federal rules restrict any use of the information to criminally investigate or prosecute any alcohol or drug abuse patient.[facility] Center[facility] the event this information is protected by the Federal Confidentiality of Alcohol and Drug Abuse Patient Records regulations: The Federal rules restrict any use of the information to criminally investigate or prosecute any alcohol or drug abuse patient.[facility] Reason for Visit (unrecogniz ed section and content) Reason Comments New Patient Specialty Diagnoses / Procedures Referred By Rosalee ye Referred To Contact Neurologic Surgery Diagnoses Invasive ductal carcinoma of breast, female, left Chepe Chambers MD [address] [place] [address] Referral ID Status Reason Start Date Expiration Date V isits Requested Visits Authorized [id number] New Request 03/19/2024 04/13/2025 1 1 Reason Comments Medication Problem Delia requesting auth be with drawn for Prolia Reason Comments Lab Orders Reason Comments Breast Cancer Specialty Diagnoses / Procedures Referred By Rosalee ye Referred To Contact [facility] Diagnoses Invasive ductal carcinoma of left breast (HCC) left breast cancer Procedures OFFICE/OUTPATIENT ESTABLISHED MOD [facility] 30-39 MIN consult test and treat Mark Anthony Patton MD [address] [place] [address] [place] [address] [facility] [address] [place] [address] Referral ID Status Reason Start Date Expiration Date Visits Requested Visits Authorized [id number] Closed Financial Clearance Required - OON Payor OON Notification Letter Patient cleared - OON Required Payment Collected 2 08/14/2022 1 1 Reason Comments Refill Request Reason Comments Door Attendant Reason Comments Breast Cancer 6 month follow up Specialty Diagnoses / Procedures Referred By Contac t Referred To Contact [facility] Diagnoses Malignant neoplasm of unspecified site of left female breast Procedures OFFICE/OUTPATIENT ESTABLISHED MOD [facility] 30-39 MIN Mark Anthony Patton MD [address] [place] [address] [place] [address] [facility] [address] [place] [address] Referral ID Status Reason Start Date Expiration Date V isits Requested Visits Authorized [id number] Closed Financial Clearance Required - OON Payor OON/Self Pay Override 11/03/2023 06/01/2024 1 1 Reason Comments Appointment Reason Comments Lymphadenopathy, mediastinal Consultatio n Specialty Diagnoses / Procedures Referred By Contac t Referred To Contact Pulmonary Disease / Pulmonology Diagnoses Lymphadenopathy, mediastinal Procedures [place] OFFICE/OUTPATIENT [facility] 60 MINUTES Curtis Aguirre, SKYE [address] [place] [address] Shahid Manzano, DO [address] [place] [address] Referral ID Status Reason Start Date Expiration Date V isits Requested Visits Authorized [id number] Closed Specialty Services Required 02/19/2024 08/17/2024 1 1 Reason Comments New Patient Specialty Diagnoses / Procedures Referred By Contac t Referred To Contact Oncology Diagnoses 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, unspecified laterality Mark Anthony Beckwith MD [address] [place] [address] [facility] [address] [place] [address] Referral ID Status Reason Start Date Expiration Date V isits Requested Visits Authorized [id number] New Request 03/02/2024 03/27/2025 1 1 Reason Comments Breast Cancer New patient visit fo r discussion of radiation therapy for metastatic breast cancer. Reason Comments Pleural effusion 1 month follow up Specialty Diagnoses / Procedures Referred By Contac t Referred To Contact Diagnoses Pleural effusion Pleural effusion [J90] Procedures [place] INSERTION INDWELLING TUNNELED PLEURAL CATHETER RIGHT SIDE PLEURAL CATHETER INSERTION, 3rd case, pat on admit Hawk Pérez MD [address] [facility] [address] [place] [address] [facility] [id number] [place] [address] Referral ID Status Reason Start Date Expiration Date Visits Re quested Visits Authorized [id number] 1 1 Reason Comments Immunization/Injection Faslodex # 1 Reason Comments Continuity Of Care Specialty Diagnoses / Procedures Referred By Contac t Referred To Contact Computerized Tomography Scan Procedures CT SIMULATION Self, Self Ct Scan Rad Onc [address] [address] Referral ID Status Reason Start Date Expiration Date Visits Re quested Visits Authorized [id number] Closed 04/14/2024 05/09/2025 1 1 Reason Comments New Patient Specialty Diagnoses / Procedures Referred By Contac t Referred To Contact Diagnoses Bone lesion Chepe Chambers MD [address] [place] [address] [facility] [address] [place] [address] Referral ID Status Reason Start Date Expiration Date Visits Re quested Visits Authorized [id number] 1 1 Reason Comments Med Refill Reason Comments Chemotherapy C1D1 Ribo/Faslodex Reason Comments Immunization/Injection Reason Comments Post Op Visit Reason Comments New Patient Reports pain 10 Specialty Diagnoses / Procedures Referred By Contac t Referred To Contact Palliative Medicine Diagnoses Invasive ductal carcinoma of left breast Davide Tatum, PA-C [address] [place] [address] Referral ID Status Reason Start Date Expiration Date V isits Requested Visits Authorized [id number] New Request 04/15/2024 05/10/2025 1 1 Reason Comments On Treatment Visit Right femur: 2/5 Fra ctions; 800/2000 cGy Reason Onset Date Comments Medication Management 05/11/2024 Reason Comments Chemotherapy C1D15 Ribo check Reason Comments On Treatment Visit Ribo + Faslodex Reason Onset Date Comments Nausea 05/17/2024 Vomiting 05/17/2024 Reason Comments Other Consent Care Teams (unrecognized sec tion and content) Horizontal Resaw Operator Relationship Specialty Start Date End Date Jason Tamez [address] [place] [address] PCP - General Internal Medicine 09/13/19 Mark Anthony Patton MD [address] [place] [address] [place] [address] Physician Hematology/Oncology 10/07/19 Stephanie Stovall, SHANNON [address] [place] [address] Specialty Retail Coordinator Hematology/Oncology 10/07/19 Sammie Siegel APRN.BODY FITTER [address] [place] [address] Nurse Practitioner Hematology/Oncology 10/07/19 Brad Bond MD [address] [place] [address] Physician Radiation Oncology 01/13/20 Horizontal Resaw Operator Relationship Specialty Start Date End Date Jason Tamez [address] [place] [address] PCP - General Internal Medicine 09/13/19 Mark Anthony Patton MD [address] [place] [address] Physician Hematology/Oncology 10/07/19 Stephanie Stovall, SHANNON [address] [place], [place] [address] Specialty Retail Coordinator Hematology/Oncology 10/07/19 Sammie Siegel, INTERNAL AFFAIRS COMMANDER.[facility] [address] [place] [address] Nurse Practitioner Hematology/Oncology 10/07/19 Brad Bond MD [address] [place] [address] Physician Radiation Oncology 01/13/20 Horizontal Resaw Operator Relationship Specialty Start Date End Date Jason Tamez [address] [place] [address] PCP - General Internal Medicine 09/13/19 Mark Anthony Patton MD [address] [place] [address] Physician Hematology/Oncology 10/07/19 Stephanie Stovall, SHANNON [address] [place] [address] Specialty Retail Coordinator Hematology/Oncology 10/07/19 Sammie Siegel, INTERNAL AFFAIRS COMMANDER.[facility] [address] [place] [address] Nurse Practitioner Hematology/Oncology 10/07/19 Brad Bond MD [address] [place] [address] Physician Radiation Oncology 01/13/20 Horizontal Resaw Operator Relationship Specialty Start Date End Date Jason Tamez [address] [place] [address] PCP - General Internal Medicine 09/13/19 Mark Anthony Patton MD [address] [place] [address] Physician Hematology/Oncology 10/07/19 Stephanie Stovall, RN [address] [place] [address] Specialty Retail Coordinator Hematology/Oncology 10/07/19 Sammie Siegel, INTERNAL AFFAIRS COMMANDER.BODY FITTER [address] [place] [address] Nurse Practitioner Hematology/Oncology 10/07/19 Brad Bond MD [address] [place] [address] Physician Radiation Oncology 01/13/20 Horizontal Resaw Operator Relationship Specialty Start Date End Date Jason Tamez [address] [place] [address] PCP - General Internal Medicine 09/13/19 Mark Anthony Patton MD [address] [place] [address] [place] [address] Physician Hematology/Oncology 10/07/19 Sammie Siegel, INTERNAL AFFAIRS COMMANDER.[facility] [address] [place] [address] [place] [address] Nurse Practitioner Hematology/Oncology 10/07/19 Brad Bond MD [address] [place] [address] [place] [address] Physician Radiation Oncology 01/13/20 Horizontal Resaw Operator Relationship Specialty Start Date End Date Jason Tamez [address] [place] [address] PCP - General Internal Medicine 09/13/19 Mark Anthony Patton MD [address] [facility] [place] [address] Physician Hematology/Oncology 10/07/19 Sammie Siegel, INTERNAL AFFAIRS COMMANDER.BODY FITTER [address] [facility] [place] [address] Nurse Practitioner Hematology/Oncology 10/07/19 Brad Bond MD [address] [facility] [place] [place] [address] Physician Radiation Oncology 01/13/20 Horizontal Resaw Operator Relationship Specialty Start Date End Date Jason Tamez [address] [place] [address] PCP - General Internal Medicine 09/13/19 Mark Anthony Patton MD [address] [facility] [place] [address] Physician Hematology/Oncology 10/07/19 Sammie Siegel, INTERNAL AFFAIRS COMMANDER.BODY FITTER [address] [facility] [place] [address] Nurse Practitioner Hematology/Oncology 10/07/19 Brad Bond MD [address] [facility] [place] [address] Physician Radiation Oncology 01/13/20 Horizontal Resaw Operator Relationship Specialty Start Date End Date Jason Tamez [address] [place] [address] PCP - General Internal Medicine 09/13/19 Mark Anthony Patton MD [address] [place] [address] Physician Hematology/Oncology 10/07/19 Sammie Siegel, INTERNAL AFFAIRS COMMANDER.BODY FITTER [address] [facility] [place] [address] Nurse Practitioner Hematology/Oncology 10/07/19 Brad Bond MD [address] [facility] [place] [address] Physician Radiation Oncology 01/13/20 Horizontal Resaw Operator Relationship Specialty Start Date End Date Chelsey Jason Aguero [address] [place] [address] PCP - General Internal Medicine 09/13/19 Mark Anthony Patton MD [address] [facility] [place] [address] Physician Hematology/Oncology 10/07/19 Sammie Siegel, INTERNAL AFFAIRS COMMANDER.BODY FITTER [address] [facility] [place] [address] Nurse Practitioner Hematology/Oncology 10/07/19 Brad Bond MD [address] [facility] [place] [address] Physician Radiation Oncology 01/13/20 Horizontal Resaw Operator Relationship Specialty Start Date End Date Jason Tamez [address] [place] [address] PCP - General Internal Medicine 09/13/19 Mark Anthony Patton MD [address] [place] [address] [place] [address] Physician Hematology/Oncology 10/07/19 Sammie Siegel APRN.BODY FITTER [address] [place] [address] [place] [address] Nurse Practitioner Hematology/Oncology 10/07/19 Brad Bond MD [address] [place] [address] [place] [address] Physician Radiation Oncology 01/13/20 Horizontal Resaw Operator Relationship Specialty Start Date End Date Neel Cleveland MD [address] [place] [address] PCP - General Family Medicine 09/10/23 Curtis Aguirre NP [address] [place] [address] Nurse Practitioner Family Medicine 03/02/23 Curtis Aguirre NP [address] [place] [address] Nurse Practitioner Family Medicine 09/10/23 Horizontal Resaw Operator Relationship Specialty Start Date End Date Neel Cleveland MD [address] [place] [address] PCP - General Family Medicine 09/10/23 Curtis Aguirre NP [address] [place] [address] Nurse Practitioner Family Medicine 03/02/23 Curtis Aguirre NP [address] [place] [address] Nurse Practitioner Family Medicine 09/10/23 Team Status: Inactive Member Role Status Dates Shahid Manzano DO Attending Provider Active Sta rt: March 04, 2024 End: March 04, 2024 Horizontal Resaw Operator Relationship Specialty Start Date End Date Neel Cleveland MD [address] [place] [address] PCP - General Family Medicine 09/10/23 Curtis Aguirre NP [address] [place] [address] Nurse Practitioner Family Medicine 03/02/23 Curtis Aguirre NP [address] [place] [address] Nurse Practitioner Family Medicine 09/10/23 Horizontal Resaw Operator Relationship Specialty Start Date End Date Neel Cleveland MD [address] [place] [address] PCP - General Family Medicine 09/10/23 Curtis Aguirre NP [address] [place] [address] Nurse Practitioner Family Medicine 03/02/23 Curtis Aguirre NP [address] [place] [address] Nurse Practitioner Family Medicine 09/10/23 Horizontal Resaw Operator Relationship Specialty Start Date End Date Neel Cleveland MD [address] [place] [address] PCP - General Family Medicine 09/10/23 Curtis Aguirre, SKYE [address] [place] [address] Nurse Practitioner Family Medicine 03/02/23 Curtis Aguirre, SKYE [address] [place] [address] Nurse Practitioner Family Medicine 09/10/23 Horizontal Resaw Operator Relationship Specialty Start Date End Date Neel Cleveland MD [address] [place] [address] PCP - General Family Medicine 09/10/23 Curtis Aguirre NP [address] [place] [address] Nurse Practitioner Family Medicine 03/02/23 Curtis Aguirre, SKYE [address] [place] [address] Nurse Practitioner Family Medicine 09/10/23 Horizontal Resaw Operator Relationship Specialty Start Date End Date Curtis Aguirre CNP [address] [place] [address] Certified Nurse Practitioner 03/12/24 Carlos He MD [address] [place] [address] [address]th Floor, [address] [place] [address] Oncologist Medical Oncology 03/12/24 Davide Tatum PA-C [address], [address] [place] [address] Physician Compliance Counsel 03/12/24 Horizontal Resaw Operator Relationship Specialty Start Date End Date Curtis Aguirre CNP [address] [place] [address] Certified Nurse Practitioner 03/12/24 Carlos He MD [address], [address] [place] [address] Oncologist Medical Oncology 03/12/24 Davide Tatum PA-C [address], [address] [place] [address] Physician Compliance Counsel 03/12/24 Team Status: Active Member Role Status Dates PHYSICIAN NO FAMILY Primary Care Provider Active Team Status: Inactive Member Role Status Dates Shahid Manzano DO Attending Provider Active Sta rt: March 04, 2024 End: March 04, 2024 PHYSICIAN NO FAMILY Primary Care Provider Active Start: March 04, 2024 End: March 04, 2024 Team Status: Inactive Member Role Status Dates PHYSICIAN NO FAMILY Primary Care Provider Active Start: March 25, 2024 End: March 26, 2024 Black Benitez MD Admit Provider Active Start: March 25, 2024 End: March 26, 2024 Nirav Avila MD Other Provider Active Start: March 25, 2024 End: March 26, 2024 Zaheer Day DO Other Provider Active Start: March 25, 2024 End: March 26, 2024 Emelina Ku APRN ACNP- Other Provider Active Start: March 25, 2024 End: March 26, 2024 Ivana Parikh MD Other Provider Active Start: O ctober 2023 End: March 26, 2024 Preethi Good MD Other Provider Active Start: March 25, 2024 End: March 26, 2024 Xavier Hummel MD Other Provider Active Start: O ctober 2023 End: March 26, 2024 Glory Hardy MD Other Provider Active Start: O ctober 2023 End: March 26, 2024 Fritz Fisher DO Other Provider Active Start: March 25, 2024 End: March 26, 2024 Bernardino Robles MD Other Provider Active Start: March 25, 2024 End: March 26, 2024 Bernardo Wheeler MD Other Provider Active St art: March 25, 2024 End: March 26, 2024 Ginny Soriano MD Attending Provider Active Sta rt: March 25, 2024 End: March 26, 2024 Horizontal Resaw Operator Relationship Specialty Start Date End Date Neel Cleveland MD [address] [place] [address] PCP - General Family Medicine 09/10/23 Curtis Aguirre NP [address] [place] [address] Nurse Practitioner Family Medicine 03/02/23 Curtis Aguirre, SKYE [address] [place] [address] Nurse Practitioner Family Medicine 09/10/23 Horizontal Resaw Operator Relationship Specialty Start Date End Date Curtis Aguirre CNP [address] [place] [address] Certified Nurse Practitioner 03/12/24 Carlos He MD [address] [place] [address] 4th Floor, [address] [place] [address] Oncologist Medical Oncology 03/12/24 Davide Tatum PA-C [address] [facility] 4[facility], [address] [place] [address] Physician Compliance Counsel 03/12/24 Horizontal Resaw Operator Relationship Specialty Start Date End Date Neel Cleveland MD [address] [place] [address] PCP - General Family Medicine 09/10/23 Curtis Aguirre NP [address] [place] [address] Nurse Practitioner Family Medicine 03/02/23 Curtis Aguirre NP [address] [place] [address] Nurse Practitioner Family Medicine 09/10/23 Horizontal Resaw Operator Relationship Specialty Start Date End Date Neel Cleveland MD [address] [place] [address] PCP - General Family Medicine 09/10/23 Curtis Aguirre NP [address] [place] [address] Nurse Practitioner Family Medicine 03/02/23 Curtis Aguirre NP [address] [place] [address] Nurse Practitioner Family Medicine 09/10/23 Horizontal Resaw Operator Relationship Specialty Start Date End Date No, Pcp PCP - General 04/05/24 Horizontal Resaw Operator Relationship Specialty Start Date End Date No, Pcp PCP - General 04/05/24 Horizontal Resaw Operator Relationship Specialty Start Date End Date NaidazackfaheemCurtis agarwal CNP [address] [place] [address] PCP - General Certified Nurse Practitioner 04/09/24 Curtis Aguirre CNP [address] [place] [address] Certified Nurse Practitioner 03/12/24 Carlos He MD [address] Floor, [address] [place], [facility] Oncologist Medical Oncology 03/12/24 Davide Tatum PA-C [address] Floor, [address] [place], [facility] Physician Compliance Counsel 03/12/24 Horizontal Resaw Operator Relationship Specialty Start Date End Date NaidazackfaheemCurtis agarwal CNP [address] [place] [address] PCP - General Certified Nurse Practitioner 04/09/24 Curtis Aguirre CNP [address] [place] [address] Certified Nurse Practitioner 03/12/24 Carlos He MD [address] Floor, [address] [place] [address] Oncologist Medical Oncology 03/12/24 Davide Tatum PA-C [address] Floor, [address] [place] [address] Physician Compliance Counsel 03/12/24 Horizontal Resaw Operator Relationship Specialty Start Date End Date NaidazackfaheemCurtis agarwal CNP [address] [place] [address] PCP - General Certified Nurse Practitioner 04/09/24 Curtis Aguirre CNP [address] [place] [address] Certified Nurse Practitioner 03/12/24 Carlos He MD [address] Floor, [address] [place] [address] Oncologist Medical Oncology 03/12/24 Davide Tatum PA-C [address] Floor, [address] [place] [address] Physician Compliance Counsel 03/12/24 Horizontal Resaw Operator Relationship Specialty Start Date End Date Curtis Aguirre CNP [address] [place] [address] PCP - General Certified Nurse Practitioner 04/09/24 Curtis Aguirre CNP [address] [place] [address] Certified Nurse Practitioner 03/12/24 Carlos He MD [address] Floor, [address] [place] [address] Oncologist Medical Oncology 03/12/24 Davide Tatum PA-C [address] Floor, [address] [place] [address] Physician Compliance Counsel 03/12/24 Horizontal Resaw Operator Relationship Specialty Start Date End Date Curtis Aguirre CNP [address] [place] [address] PCP - General Certified Nurse Practitioner 04/09/24 Curtis Aguirre CNP [address] [place] [address] Certified Nurse Practitioner 03/12/24 Carlos He MD [address] Floor, [address] [place], [facility] Oncologist Medical Oncology 03/12/24 Davide Tatum PA-C [address] [address], [address] [place], [id number] Physician Compliance Counsel 03/12/24 Horizontal Resaw Operator Relationship Specialty Start Date End Date Curtis Aguirre CNP [address] [place] [id number] PCP - General Certified Nurse Practitioner 04/09/24 Curtis Aguirre CNP [address] [place] [address] Certified Nurse Practitioner 03/12/24 Carlos He MD [address], [address] [place] [address] Oncologist Medical Oncology 03/12/24 Davide Tatum PA-C [address], [address] [place] [address] Physician Compliance Counsel 03/12/24 Horizontal Resaw Operator Relationship Specialty Start Date End Date Curtis Aguirre CNP [address] [place] [phone] Certified Nurse Practitioner 03/12/24 Carlos He MD [address], [address] [place] [address] Oncologist Medical Oncology 03/12/24 Davide Tatum PA-C [address], [address] [place] [address] Physician Compliance Counsel 03/12/24 Horizontal Resaw Operator Relationship Specialty Start Date End Date Neel Cleveland MD [address] [place] [phone] PCP - General Family Medicine 09/10/23 Curtis Aguirre NP [address] [place] [address] Nurse Practitioner Family Medicine 03/02/23 Curtis Aguirre NP [address] [place] [phone] Nurse Practitioner Family Medicine 09/10/23 Horizontal Resaw Operator Relationship Specialty Start Date End Date Curtis Aguirre CNP [address] [place] [address] PCP - General Certified Nurse Practitioner 04/09/24 Naidazackashley CurtisKAMILA [address] [place] [address] Certified Nurse Practitioner 03/12/24 Carlos He MD [address], [address] [place] [address] Oncologist Medical Oncology 03/12/24 Davide Tatum PA-C [address], [address] [place] [address] Physician Compliance Counsel 03/12/24 Horizontal Resaw Operator Relationship Specialty Start Date End Date Curtis Aguirre CNP [address] [place] [phone] PCP - General Certified Nurse Practitioner 04/09/24 Curtis Aguirre CNP [address] [place] [phone] Certified Nurse Practitioner 03/12/24 Carlos He MD [address], [address] [place] [address] Oncologist Medical Oncology 03/12/24 Davide Tatum PA-C [address], [address] [place] [address] Physician Compliance Counsel 03/12/24 Horizontal Resaw Operator Relationship Specialty Start Date End Date NaidazackfaheemCurtis agarwal CNP [address] [place] [phone] PCP - General Certified Nurse Practitioner 04/09/24 Curtis Aguirre CNP [address] [place] [address] Certified Nurse Practitioner 03/12/24 Carlos He MD [address], [address] [place] [address] Oncologist Medical Oncology 03/12/24 Davide Tatum PA-C [address], [address] [place] [address] Physician Compliance Counsel 03/12/24 Horizontal Resaw Operator Relationship Specialty Start Date End Date Curtis Aguirre CNP [address] [place] [address] PCP - General Certified Nurse Practitioner 04/09/24 Curtis Aguirre CNP [address] [place] [address] Certified Nurse Practitioner 03/12/24 Carlos He MD [address], [address] [place] [address] Oncologist Medical Oncology 03/12/24 Davide Tatum PA-C [address] [facility] 4th Floor, [address] [place] [address] Physician Compliance Counsel 03/12/24 Horizontal Resaw Operator Relationship Specialty Start Date End Date Neel Cleveland MD [address] [place] [phone] PCP - General Family Medicine 09/10/23 Curtis Aguirre NP [address] [place] [address] Nurse Practitioner Family Medicine 03/02/23 Curtis Aguirre NP [address] [place] [address] Nurse Practitioner Family Medicine 09/10/23 Horizontal Resaw Operator Relationship Specialty Start Date End Date Neel Cleveland MD [address] [place] [phone] PCP - General Family Medicine 09/10/23 Curtis Aguirre NP [address] [place] [address] Nurse Practitioner Family Medicine 03/02/23 Curtis Aguirre NP [address] [place] [address] Nurse Practitioner Family Medicine 09/10/23 Horizontal Resaw Operator Relationship Specialty Start Date End Date Neel Cleveland MD [address] [place] [phone] PCP - General Family Medicine 09/10/23 Curtis Aguirre NP [address] [place] [address] Nurse Practitioner Family Medicine 03/02/23 Curtis Aguirre NP [address] [place] [address] Nurse Practitioner Family Medicine 09/10/23 Horizontal Resaw Operator Relationship Specialty Start Date End Date Curtis Aguirre CNP [address] [place] [address] PCP - General Certified Nurse Practitioner 04/09/24 Curtis Aguirre CNP [address] [place] [phone] Certified Nurse Practitioner 03/12/24 Carlos He MD [address], [address] [place] [phone] Oncologist Medical Oncology 03/12/24 Davide Tatum PA-C [address], [address] [place] [address] Physician Compliance Counsel 03/12/24 Horizontal Resaw Operator Relationship Specialty Start Date End Date Curtis Aguirre CNP [address] [place] [phone] PCP - General Certified Nurse Practitioner 04/09/24 Curtis Aguirre CNP [address] [place] [address] Certified Nurse Practitioner 03/12/24 Carlos He MD [address], [address] [place] [address] Oncologist Medical Oncology 03/12/24 Davide Tatum PA-C [address], [address] [place] [address] Physician Compliance Counsel 03/12/24 Norah Coronel MD [address] [place] [address] [place] [address] Consulting Physician Palliative Medicine - Internal Medicine 05/11/24 Horizontal Resaw Operator Relationship Specialty Start Date End Date Curtis Aguirre CNP [address] [place] [phone] PCP - General Certified Nurse Practitioner 04/09/24 Curtis Aguirre CNP [address] [place] [address] Certified Nurse Practitioner 03/12/24 Carlos He MD [address], [address] [place] [address] Oncologist Medical Oncology 03/12/24 Davide Tatum PA-C [address], [address] [place] [address] Physician Compliance Counsel 03/12/24 Norah Coronel MD [address] [place] [address] [place] [address] Consulting Physician Palliative Medicine - Internal Medicine 05/11/24 Horizontal Resaw Operator Relationship Specialty Start Date End Date Curtis Augirre CNP [address] [place] [phone] PCP - General Certified Nurse Practitioner 04/09/24 Curtis Aguirre CNP [address] [place] [address] Certified Nurse Practitioner 03/12/24 Carlos He MD [address], [address] [place] [address] Oncologist Medical Oncology 03/12/24 Davide Tatum, REBECCAC [address], [address] [place] [address] Physician Compliance Counsel 03/12/24 Norah Coronel MD [address] [place] [address] [place] [address] Consulting Physician Palliative Medicine - Internal Medicine 05/11/24 Horizontal Resaw Operator Relationship Specialty Start Date End Date Curtis Aguirre CNP [address] [place] [phone] PCP - General Certified Nurse Practitioner 04/09/24 Curtis Aguirre CNP [address] [place] [phone] Certified Nurse Practitioner 03/12/24 Carlos He MD [address], [address] [place] [address] Oncologist Medical Oncology 03/12/24 Davide Tatum PA-C [address], [address] [place] [address] Physician Compliance Counsel 03/12/24 Horizontal Resaw Operator Relationship Specialty Start Date End Date Curtis Aguirre CNP [address] [place] [address] PCP - General Certified Nurse Practitioner 04/09/24 Curtis Aguirre CNP [address] [place] [address] Certified Nurse Practitioner 03/12/24 Carlos He MD [address], [address] [place] [phone] Oncologist Medical Oncology 03/12/24 Davide Tatum PA-C [address], [address] [place] [address] Physician Compliance Counsel 03/12/24 Norah Coronel MD [address] [place] [address] [place] [address] Consulting Physician Palliative Medicine - Internal Medicine 05/11/24 Horizontal Resaw Operator Relationship Specialty Start Date End Date Curtis Aguirre CNP [address] [place] [phone] PCP - General Certified Nurse Practitioner 04/09/24 Curtis Aguirre CNP [address] [place] [address] Certified Nurse Practitioner 03/12/24 Carlos He MD [address] [facility] [address], [address] [place] [address] Oncologist Medical Oncology 03/12/24 Davide Tatum PA-C [address] [facility] [address], [address] [place] [address] Physician Compliance Counsel 03/12/24 Norah Coronel MD [address] [facility] [place] [address]rd [place] [address] Consulting Physician Palliative Medicine - Internal Medicine 05/11/24 Horizontal Resaw Operator Relationship Specialty Start Date End Date Neel Cleveland MD [address] [place] [phone] PCP - General Family Medicine 09/10/23 Curtis Aguirre, SKYE [address] [place] [address] Nurse Practitioner Family Medicine 03/02/23 Curtis Aguirre NP [address] [place] [address] Nurse Practitioner Family Medicine 09/10/23 Horizontal Resaw Operator Relationship Specialty Start Date End Date Neel Cleveland MD [address] [place] [address] PCP - General Family Medicine 09/10/23 Curtis Aguirre NP [address] [place] [address] Nurse Practitioner Family Medicine 03/02/23 Curtis Aguirre NP [address] [place] [address] Nurse Practitioner Family Medicine 09/10/23 Horizontal Resaw Operator Relationship Specialty Start Date End Date Neel Cleveland MD [address] [place] [address] PCP - General Family Medicine 09/10/23 Curtis Aguirre NP [address] [place] [address] Nurse Practitioner Family Medicine 03/02/23 Curtis Aguirre NP [address] [place] [address] Nurse Practitioner Family Medicine 09/10/23 Horizontal Resaw Operator Relationship Specialty Start Date End Date Neel Cleveland MD [address] [place] [address] PCP - General Family Medicine 09/10/23 Curtis Aguirre NP [address] [place] [address] Nurse Practitioner Family Medicine 03/02/23 Curtis Aguirre NP [address] [place] [address] Nurse Practitioner Family Medicine 09/10/23 Horizontal Resaw Operator Relationship Specialty Start Date End Date Neel Cleveland MD [address] [place] [address] PCP - General Family Medicine 09/10/23 Curtis Aguirre NP [address] [place] [address] Nurse Practitioner Family Medicine 03/02/23 Curtis Aguirre NP [address] [place] [address] Nurse Practitioner Family Medicine 09/10/23 Horizontal Resaw Operator Relationship Specialty Start Date End Date Neel Cleveland MD [address] [place] [address] PCP - General Family Medicine 09/10/23 Curtis Aguirre NP [address] [place] [address] Nurse Practitioner Family Medicine 03/02/23 Curtis Aguirre NP [address] [place] [address] Nurse Practitioner Family Medicine 09/10/23 Horizontal Resaw Operator Relationship Specialty Start Date End Date Curtis Aguirre CNP [address] [place] [address] PCP - General Certified Nurse Practitioner 04/09/24 Curtis Aguirre CNP [address] [place] [address] Certified Nurse Practitioner 03/12/24 Carlos He MD [address], [address] [place] [address] Oncologist Medical Oncology 03/12/24 Davide Tatum PA-C [address] [place] [address] Physician Compliance Counsel 03/12/24 Norah Coronel MD [address] [facility] [place] [address]rd [place] [address] Consulting Physician Palliative Medicine - Internal Medicine 05/11/24 Horizontal Resaw Operator Relationship Specialty Start Date End Date Curtis Aguirre CNP [address] [place] [address] PCP - General Certified Nurse Practitioner 04/09/24 Curtis Aguirre CNP [address] [place] [address] Certified Nurse Practitioner 03/12/24 Carlos He MD [address], [address] [place] [address] Oncologist Medical Oncology 03/12/24 Davide Tatum PA-C [address], [address] [place] [address] Physician Compliance Counsel 03/12/24 Norah Coronel MD [address] [place] [address] [place] [address] Consulting Physician Palliative Medicine - Internal Medicine 05/11/24 Horizontal Resaw Operator Relationship Specialty Start Date End Date Curtis Aguirre CNP [address] [address] PCP - General Certified Nurse Practitioner 04/09/24 Curtis Aguirre CNP [address] [place] [address] Certified Nurse Practitioner 03/12/24 Carlos He MD [address], [address] [place] [phone] Oncologist Medical Oncology 03/12/24 Davide Tatum PA-C [address], [address] [place] [address] Physician Compliance Counsel 03/12/24 Norah Coronel MD [address] [facility] 3rd [place] [address] Consulting Physician Palliative Medicine - Internal Medicine 05/11/24 Goals (unrecognized section and content) Goals may be documented in a n alternate section Ordered Prescriptions (unrec ognized section and content) Prescription Sig Dispensed Refills Start Date End Da te oxyCODONE (ROXICODONE) 5 MG immediate release tabletIndications:Pleura l effusion Take 1 tablet by mouth every 6 hours as needed for Pain for up to 5 days. Intended supply: 5 days. Take lowest dose possible to manage pain Max Daily Amount: 20 mg 20 tablet 04/06/2024 04/11/2024 Scheduled Active and Recently Administ ered Medications (unrecognized section and content) Medication Order 04/05/2024 04/06/2024 04/07/2024 anastrozole (ARIMIDEX) tablet 1 mg 1 mg, Oral, DAILY, First dose on Fri04/06/24 at 1715, Until Discontinued, Hazardous Medication -- Refer to facility policy for handling and disposal. 180 (Not Given - Provider: Johnny Juarez RN - Reason: Other) 0816 (Given - Provider: Johnny Juarez RN) ceFAZolin (ANCEF) 2,000 mg in sterile water 20 mL IV syringe (COMPLETED) 2,000 mg, IntraVENous, INSTRUMENTATION CHEMIST TO O.R., On Fri04/06/24 at 1215, For 1 dose, Administer over 5 mins. Reconstitute 2 g vial with 20 mL Sterile Water. Withdraw entire contents. 1229 (New Bag - Provider: Grant Garcia APRN - TURNER MACHINE) cetirizine (ZYRTEC) tablet 10 mg 10 mg, Oral, DAILY, First dose on Fri04/06/24 at 1715, Until Discontinued, Substituted for Loratadine (CLARITIN). 180 (Not Given - Provider: Johnny Juarez RN - Reason: Other) 0812 (Not Given - Provider: Johnny Juarez RN - Reason: Patient/family refused) enoxaparin (LOVENOX) injection 40 mg 40 mg, SubCUTAneous, DAILY, First dose on Fri04/06/24 at 1715, Until Discontinued, Indication of Use: Prophylaxis-DVT/PE, Administer by deep subCUTAneous injection with pt lying down. Alternate injection sites on abdominal wall. Do not rub site after injection. Check with provider prior to any invasive procedure., Post-op 171 (Not Given - Provider: Johnny Juarez RN - Reason: Other) 1930 (Due - Provider: Johnny Juarez RN) famotidine (PEPCID) 20 mg in sodium chloride (PF) 0.9 % 10 mL injection(Linked Group 1) 20 mg, IntraVENous, 2 TIMES DAILY, First dose on Fri04/06/24 at 2100, Until Discontinued, Administer if oral route cannot be used, Post-op 2107 (See Alternative - Provider: Stephanie Baker RN) 08 (See Alternative - Provider: Johnny Juarez RN)2099 (Due) famotidine (PEPCID) tablet 20 mg(Linked Group 1) 20 mg, Oral, 2 TIMES DAILY, First dose on Fri04/06/24 at 2100, Until Discontinued, Post-op 2107 (Given - Provider: Stephanie Baker RN) 08 (Given - Provider: Johnny Juarez RN)2099 (Due) HYDROmorphone (DILAUDID) injection 0.5 mg (COMPLETED) 0.5 mg, IntraVENous, ONCE, 1 dose, On Fri04/06/24 at 1545, If oral and IV narcotics ordered, use oral first and only use IV if oral is ineffective or cannot take oral. Do Not give oral and IV within 1 hour of each other unless specifically ordered., STAT, Post-op 1521 (Given - Provider: Marysol Grant, SHANNON) ketorolac (TORADOL) injection 30 mg (COMPLETED) 30 mg, IntraVENous, ONCE, 1 dose, On Fri04/06/24 at 1500, Per Dr. Pérez for pain relief, STAT, Post-op 1440 (Given - Provider: Marysol Grant, SHANNON) levothyroxine (SYNTHROID) tablet 75 mcg 75 mcg, Oral, DAILY, First dose on Fri04/06/24 at 1715, Until Discontinued, Tube feeding (TF) interaction, obtain physician order to manage, recommend holding TF for 30 minutes before and after dose. 1804 (Not Given - Provider: Johnny Juarez RN - Reason: Other) 0610 (Given - Provider: Stephanie Baker RN) sodium chloride flush 0.9 % injection 5-40 mL 5-40 mL, IntraVENous, EVERY 12 HOURS SCHEDULED (2 times per day), First dose on Fri04/06/24 at 2100, Until Discontinued, For Line Patency: Peripheral IV = 5 mL; Midline or Central Line = 10 mL/lumen. If following IV push medication, administer flush at same rate as the IV push. Flush volume is determined by type of infusion therapy being given. For non-viscous solutions use: Peripheral IV = 5 mL Midline or Central Line = 10 mL/lumen For viscous solutions (i.e. blood components, parenteral nutrition, contrast media, or after obtaining blood sample) use: Peripheral IV = 10 mL Midline or Central Line = 20 mL/lumen, Post-op 2109 (Given - Provider: Stephanie Baker RN) 0813 (Given - Provider: Johnny Juarez RN)2100 (Due) Continuous Medication Order 04/05/2024 04/06/2024 04/07/2024 HYDROmorphone (DILAUDID) 1 mg/mL DIESEL ROLLER OPERATOR (CANCELED) Patient Bolus (DIESEL ROLLER OPERATOR Dose): 0.2 mg, Lockout Interval: 10 Minutes, Continuous Dose: 0 mg/hr, One Hour Dose Limit: 1 mg, Loading Dose: 0 mg, IntraVENous, CONTINUOUS, Starting on Fri04/06/24 at 1530 1556 (New Bag - Provider: Erica [place] RN) 0814 (Stopped - Provider: Johnny Juarez, SHANNON - Comment: wasted 27ml with Stephanie Carey RN) lactated ringers infusion (CANCELED) IntraVENous, at 125 mL/hr, CONTINUOUS, Starting on Fri04/06/24 at 1000, Pre-op (day of surgery) 1149 (New Bag - Provider: Grant Garcia APRN - TURNER MACHINE)1246 (Stopped - Provider: ELIAN Morris TURNER MACHINE) 1027 (Stopped - Provider: Johnny Juarez, SHANNON) PRN Medication Order 04/05/2024 04/06/2024 04/07/2024 0.9 % sodium chloride infusion (CANCELED) IntraVENous, at 5-250 mL/hr, PRN, if patient receiving piggyback infusions and maintenance fluids are not ordered, Starting on Fri04/06/24 at 0939, For piggyback infusion, administer at same rate as piggyback for a total of 25 mL. Enter 25 mL into dose field and piggyback rate into rate field of order. If piggyback is infusing at a rate less than 100 mL/hr, enter 25 mL into dose field and 100 mL/hr into rate field of order., Pre-op (day of surgery) 1555 (New Bag - Provider: Erica [place] RN) 1027 (Stopped - Provider: Johnny Juarez RN) 0.9 % sodium chloride infusion IntraVENous, at 5-250 mL/hr, PRN, if patient receiving piggyback infusions and maintenance fluids are not ordered, Starting on Fri04/06/24 at 1657, For piggyback infusion, administer at same rate as piggyback for a total of 25 mL. Enter 25 mL into dose field and piggyback rate into rate field of order. If piggyback is infusing at a rate less than 100 mL/hr, enter 25 mL into dose field and 100 mL/hr into rate field of order., Post-op 1027 (Stopped - Provider: Johnny Juarez RN) acetaminophen (TYLENOL) tablet 650 mg (CANCELED) 650 mg, Oral, EVERY 4 HOURS PRN, Starting on Fri04/06/24 at 1340, Until Fri04/06/24 at 1702, Pain Moderate (4-6), Maximum dose of acetaminophen is 4000 mg from all sources in 24 hours., STAT, Post-op 1343 (Given - Provider: Marysol Grant RN) acetaminophen (TYLENOL) tablet 650 mg 650 mg, Oral, EVERY 4 HOURS PRN, Starting on Fri04/06/24 at 1657, Until Discontinued, Other, Pain (1-10), Give in addition to any other pain medication ordered at same time for any pain indication., Post-op 1937 (Given - Provider: Stephanie Baker, SHANNON) 0401 (Given - Provider: Stephanie Baker, SHANNON)0812 (Given - Provider: Johnny Juarez, SHANNON) ketorolac (TORADOL) injection 30 mg 30 mg, IntraVENous, EVERY 6 HOURS PRN, Starting on Fri04/06/24 at 1505, Until 11/10/24 at 1504, Pain Moderate (4-6), Do not administer for more than 5 days. magnesium sulfate 2000 mg in 50 mL IVPB premix 2,000 mg, IntraVENous, at 25 mL/hr, Administer over 2 Hours, PRN, Other, Magnesium Replacement, Starting on Fri04/06/24 at 1657, Mag Lab Replacement Action 1.4-1.6 mg/dL 2,000 mg Total Dose Given as 1,000 mg IVPB x 2 doses or 2,000 mg IVPB x 1 dose 1.0-1.3 mg/dL 4,000 mg Total Dose Given as 1,000 mg IVPB x 4 doses or 2,000 mg IVPB x 2 doses Less than 1.0 mg/dL CALL PHYSICIAN and give 4,000 mg Total Dose Given as 1,000 mg IVPB x 4 doses or 2,000 mg IVPB x 2 doses Infuse at 1,000 mg/hr Repeat Mag level 1 hour after final administration Protocol not for use in Patients with CrCl less than 30ml/min, Post-op ondansetron (ZOFRAN) injection 4 mg(Linked Group 2) 4 mg, IntraVENous, EVERY 6 HOURS PRN, Starting on Fri04/06/24 at 1657, Until Discontinued, Nausea, Vomiting, Administer if oral route cannot be used., Post-op 193 (Given - Provider: Stephanie Baker, SHANNON) ondansetron (ZOFRAN-ODT) disintegrating tablet 4 mg(Linked Group 2) 4 mg, Oral, EVERY 8 HOURS PRN, Starting on Fri04/06/24 at 1657, Until Discontinued, Nausea, Vomiting, Post-op 193 (See Alternative - Provider: Stephanie Baker, SHANNON) oxyCODONE (ROXICODONE) immediate release tablet 5 mg (COMPLETED) 5 mg, Oral, ONCE PRN, 1 dose, Starting on Fri04/06/24 at 1257, Until Fri04/06/24 at 1406, Pain Moderate (4-6), Pain Severe (7-10), PHASE II, PACU only 1406 (Given - Provider: Marysol Grant RN) oxyCODONE (ROXICODONE) immediate release tablet 5 mg 5 mg, Oral, EVERY 4 HOURS PRN, Starting on Fri04/07/24 at 0712, Until Discontinued, Pain Moderate (4-6) potassium chloride 10 mEq/100 mL IVPB (Peripheral Line) 10 mEq, IntraVENous, PRN, Starting on Fri04/06/24 at 1657, Until Discontinued, at 100 mL/hr, Potassium Replacement, K Lab Replacement Action 3.1-3.5 10 mEq IVPB x 4 doses (40 mEq Total) 2.7-3.0 10 mEq IVPB x 6 doses (60 mEq Total) < 2.7 CALL PHYSICIAN and 10 mEq IVPB x 6 doses (60 mEq Total) Infuse at 10 mEq/hr. Repeat Potassium lab 1 hour after final administration. Not for use in patients with CrCl less than 30 mL/min., Post-op sodium chloride flush 0.9 % injection 5-40 mL 5-40 mL, IntraVENous, PRN, Starting on Fri04/06/24 at 1657, Until Discontinued, Line Care, After every IV line use, For Line Patency: Peripheral IV = 5 mL; Midline or Central Line = 10 mL/lumen. If following IV push medication, administer flush at same rate as the IV push. Flush volume is determined by type of infusion therapy being given. For non-viscous solutions use: Peripheral IV = 5 mL Midline or Central Line = 10 mL/lumen For viscous solutions (i.e. blood components, parenteral nutrition, contrast media, or after obtaining blood sample) use: Peripheral IV = 10 mL Midline or Central Line = 20 mL/lumen, Post-op Linked Groups Order Group 1: famotidine (PEPCID) tablet 20 mgJump to med 20 mg, Oral, 2 TIMES DAILY, First dose on Fri04/06/24 at 2100, Until Discontinued, Post-op Or famotidine (PEPCID) 20 mg in sodium chloride (PF) 0.9 % 10 mL injectionJump to med 20 mg, IntraVENous, 2 TIMES DAILY, First dose on Fri04/06/24 at 2100, Until Discontinued, Administer if oral route cannot be used, Post-op Group 2: ondansetron (ZOFRAN-ODT) disintegrating tablet 4 mgJump to med 4 mg, Oral, EVERY 8 HOURS PRN, Starting on Fri04/06/24 at 1657, Until Discontinued, Nausea, Vomiting, Post-op Or ondansetron (ZOFRAN) injection 4 mgJump to med 4 mg, IntraVENous, EVERY 6 HOURS PRN, Starting on Fri04/06/24 at 1657, Until Discontinued, Nausea, Vomiting, Administer if oral route cannot be used., Post- op Scheduled Medication Order 05/30/2024 05/31/2024 06/01/2024 Enoxaparin Sodium (LOVENOX) injection 40 mg 40 mg, Subcutaneous, DAILY, First dose on Fri05/31/24 at 1400, Until Discontinued, For SUBCUTANEOUS route ONLY: alternate injection sites between left and right abdominal wall, pinching location and avoiding area around navel. If unable to use abdominal sites, may use the front or side of thighs., Indications: DVT/PE prophylaxis 141 (Given - Provider: Priscilla Olguin RN) 09 (Given - Provider: Marisa Ledesma RN) faMOTIdine (PEPCID) tablet 20 mg 20 mg, Oral, EVERY 12 HOURS, First dose on Fri05/29/24 at 2100, Until Discontinued 812 (Given - Provider: Sammie Nye RN)2108 (Given - Provider: Curtis Vivar RN) 09 (Given - Provider: Priscilla Olguin RN)2045 (Given - Provider: Júnior Carpenter RN) 09 (Given - Provider: Marisa Ledesma RN) Gabapentin (NEURONTIN) capsule 100 mg 100 mg, Oral, 2 TIMES DAILY, First dose on Fri05/31/24 at 0900, Until Discontinued 911 (Given - Provider: Priscilla Olguin RN)1610 (Given - Provider: Priscilla Olguin RN) 09 (Given - Provider: Marisa Ledesma, SHANNON)1700 (Canceled Entry - Provider: System Discharge - Comment: Automatically canceled at discontinue of medication order) Gabapentin (NEURONTIN) capsule 300 mg 300 mg, Oral, DAILY AT BEDTIME, First dose on Fri05/30/24 at 1915, Until Discontinued 1937 (Given - Provider: Zev Jerome RN) 2045 (Given - Provider: Júnior Carpenter RN) Levothyroxine (SYNTHROID) tablet 75 mcg 75 mcg, Oral, DAILY BEFORE BREAKFAST, First dose on Fri05/19/24 at 0600, Until Discontinued 0604 (Given - Provider: Zev Jerome RN) 0639 (Given - Provider: Curtis Vivar, RN) 0505 (Given - Provider: Júnior Carpenter, SHANNON) lidocaine 4 % patch 2 patch 2 patch, Transdermal, Administer over 12 Hours, EVERY 24 HOURS, First dose on Fri05/19/24 at 1630, Until Discontinued, Apply to Ribcage over area of pain . 1605 (Not Given - Provider: Sammie Nye RN - Reason: Patient/family refused) 1614 (Not Given - Provider: Priscilla Olguin RN - Reason: Patient/family refused) 1630 (Canceled Entry - Provider: System Discharge - Comment: Automatically canceled at discontinue of medication order) Loratadine (CLARITIN) tablet 10 mg 10 mg, Oral, DAILY, First dose on Fri05/19/24 at 0900, Until Discontinued 08 (Given - Provider: Sammie Nye RN) 0913 (Given - Provider: Priscilla Olguin RN) 0909 (Given - Provider: Marisa Ledesma RN) Melatonin tablet 6 mg 6 mg, Oral, DAILY AT BEDTIME, First dose on Fri05/31/24 at 2200, Until Discontinued 2211 (Given - Provider: Júnior Carpenter RN) Methadone (DOLOPHINE) oral concentrate 5 mg (CANCELED) 5 mg, Oral, EVERY 8 HOURS, First dose (after last modification) on Fri05/27/24 at 1400, Until Discontinued 06 (Given - Provider: Zev Jerome RN)143 (Given - Provider: Sammie Nye RN)211 (Given - Provider: Curtis Vivar RN) 0640 (Given - Provider: Curtis Vivar, SHANNON) Methadone (DOLOPHINE) oral concentrate 5 mg 5 mg, Oral, EVERY 12 HOURS, First dose (after last modification) on Fri05/31/24 at 2100, Until Discontinued 2045 (Given - Provider: Júnior Carpenter RN) 0910 (Not Given - Provider: Marisa Ledesma, SHANNON - Reason: Patient/family refused) Methadone (DOLOPHINE) oral concentrate 5 mg (COMPLETED) 5 mg, Oral, ONCE, 1 dose, On Fri06/01/24 at 1430 1400 (Given - Provider: Marisa Ledesma RN) OLANZapine (zyPREXA ZYDIS) disintegrating tablet 5 mg 5 mg, Oral, DAILY AT BEDTIME, First dose on Fri05/21/24 at 2100, Until Discontinued, Administer intact tablet to dissolve in mouth; do not split, crush, or chew. 2107 (Given - Provider: Curtis Vivar RN) 2211 (Given - Provider: Júnior Carpenter RN) Pantoprazole (PROTONIX) injection 40 mg 40 mg, Intravenous, DAILY, First dose on Fri05/21/24 at 0930, Until Discontinued, Dilute each 40 mg vial with 10 mL of NS. All bolus doses, whether 40 mg or 80 mg, should be administered over at least two minutes., Indications: Continuation of Home Therapy 811 (Given - Provider: Sammie Nye RN) 912 (Given - Provider: Priscilla Olguin RN) 909 (Given - Provider: Marisa Ledesma RN) Polyethylene glycol (MIRALAX) packet 17 g 17 g, Oral, EVERY 12 HOURS, First dose (after last modification) on Fri05/28/24 at 2100, Until Discontinued 812 (Given - Provider: Sammie Nye RN)2106 (Not Given - Provider: Curtis Vivar RN - Reason: Patient/family refused) 906 (Not Given - Provider: Priscilla Olguin RN - Reason: Patient/family refused)2035 (Not Given - Provider: Júniro Carpenter RN - Reason: Patient/family refused) 09 (Not Given - Provider: Marisa Ledesma RN - Reason: Patient/family refused) Ramelteon (ROZEREM) tablet 8 mg 8 mg, Oral, DAILY AT BEDTIME, First dose on Fri05/30/24 at 2000, Until Discontinued 2199 (Given - Provider: Curtis Vivar RN) 2147 (Given - Provider: Júnior Carpenter, SHANNON) Senna (SENOKOT) tablet 17.2 mg 17.2 mg, Oral, EVERY 12 HOURS, First dose (after last modification) on Fri05/28/24 at 2100, Until Discontinued 812 (Given - Provider: Sammie Nye RN)2106 (Not Given - Provider: Curtis Vivar RN - Reason: Patient/family refused) 0907 (Not Given - Provider: Priscilla Olguin RN - Reason: Patient/family refused)2035 (Not Given - Provider: Júnior Carpenter RN - Reason: Patient/family refused) 908 (Not Given - Provider: Marisa Ledesma RN - Reason: Patient/family refused) thiamine (B-1) 250 mg in Sodium chloride 0.9%, with overfill 62.5 mL (total volume) IVPB(Linked Group 1) 250 mg, Intravenous, Administer over 30 Minutes, DAILY, 3 doses, First dose on Cheryl 06/03/24 at 0900, Last dose on 06/05/24 at 0900 thiamine (B-1) 500 mg in Sodium chloride 0.9%, with overfill 65 mL (total volume) IVPB(Linked Group 1) 500 mg, Intravenous, Administer over 30 Minutes, DAILY, 3 doses, First dose on Fri05/31/24 at 1215, Last dose on Fri06/02/24 at 0900 1236 ($$New Bag$$ - Provider: Priscilla Olguin RN)1303 (Stopped - Provider: Priscilla Olguin RN)1305 (Stopped - Provider: Priscilla Olguin RN) 0912 ($$New Bag$$ - Provider: Marisa Ledesma RN)1147 (Stopped - Provider: Marisa Ledesma RN) Thiamine (Vitamin B-1) injection 100 mg(Linked Group 1) 100 mg, Intravenous, DAILY, First dose on Fri06/06/24 at 0900, Until Discontinued PRN Medication Order 05/30/2024 05/31/2024 06/01/2024 Acetaminophen (TYLENOL) tablet 650 mg 650 mg, Oral, EVERY 6 HOURS NEEDED, Starting on Fri05/18/24 at 1925, Until Fri06/01/24 at 1843, Mild Pain, Maximum dose of acetaminophen is 4000 mg from all sources in 24 hours. alum/mag hydrox.-simethicone oral suspension 30 mL 30 mL, Oral, EVERY 6 HOURS NEEDED, Starting on Fri05/18/24 at 1925, Until Fri06/01/24 at 1843, Indigestion, Per 5 mL is equivalent to: (Alum-Mag Hydroxide 200-225 mg and Simethicone 20 mg) and (Alum-Mag Hydroxide 200-200 mg and Simethicone 20 mg) bisacodyl (DULCOLAX) suppository 10 mg 10 mg, Rectal, DAILY NEEDED, Starting on Fri05/19/24 at 1547, Until Fri06/01/24 at 1843, Constipation If No Bowel Movement in 48 Hours Dextrose 50% injection 7.5-25 g 7.5-25 g, Intravenous, ADMINISTER DIRECTED, Starting on Fri05/24/24 at 0750, Until Fri06/01/24 at 1843, Blood glucose <80 mg/dL, Administer Dextrose 50% as directed per Hypoglycemia in Non- Adults Clinical Practice Guideline for blood glucose: 60-79mg/dL administer 7.5 gm (15ml), 45-59mg/dL administer 12.5 gm (25ml), less than 45mg/dL administer 25gm (50ml) ++ If additional dextrose 50% needed, contact pharmacy or obtain from [facility] cart ++ Flumazenil (ROMAZICON) injection 0.1 mg 0.1 mg, Intravenous, ADMINISTER DIRECTED, Starting on Cheryl 05/27/24 at 1516, Until Fri06/01/24 at 1843, Decreased responsiveness, respiratory insufficiency, Vial to bedside in procedure room. Administer under direction of physician., Post-op/Post-Proc glucose (GLUTOSE) 40 % oral gel 1-2 Tube 1-2 Tube, Oral, ADMINISTER DIRECTED, Starting on Fri05/24/24 at 0750, Until Fri06/01/24 at 1843, Blood glucose <80 mg/dL, For patients who are alert, able to tolerate PO intake and with intact cognitive status administer as directed per Hypoglycemia in Non- Adults Clinical Practice Guideline. For Blood Glucose: 60-79 mg/dL administer 1 tube; 45-59 mg/dl administer 1.5 tubes; less than 45 mg/dL administer 2 tubes. Each tube of 37.5g delivers 15g of carbohydrate. guaiFENesin (ROBITUSSIN) oral solution 200 mg 200 mg, Oral, EVERY 4 HOURS NEEDED, Starting on Fri05/18/24 at 2001, Until Fri06/01/24 at 1843, Cough Haloperidol (HALDOL) tablet 0.5 mg (CANCELED) 0.5 mg, Oral, EVERY 6 HOURS NEEDED, Starting on Fri05/28/24 at 1510, Until Fri05/30/24 at 1209, Other, Nausea or anxiety 0155 (Given - Provider: Zev Jerome RN)0813 (Given - Provider: Sammie Nye RN) Haloperidol (HALDOL) tablet 0.5 mg (CANCELED) 0.5 mg, Oral, EVERY 6 HOURS NEEDED, Starting on Fri05/30/24 at 1227, Until Fri05/31/24 at 1231, Other, 2nd line nausea 1938 (Given - Provider: Zev Jerome RN) hydrOXYzine (ATARAX) syrup 10 mg (CANCELED) 10 mg, Oral, EVERY 6 HOURS NEEDED, Starting on Fri05/23/24 at 1231, Until Fri05/30/24 at 1209, Anxiety, Insomnia 0320 (Given - Provider: Zev Jerome RN)0946 (Given - Provider: Sammie Nye RN) Ibuprofen (MOTRIN) tablet 400 mg 400 mg, Oral, EVERY 6 HOURS NEEDED, Starting on Fri05/31/24 at 1436, Until Fri06/01/24 at 1842, Mild Pain, Moderate Pain, Give with food 1616 (Given - Provider: Priscilla Olguin RN) 0524 (Given - Provider: Júnior Carpenter RN) magic mouthwash (standard) Mucous Membrane, EVERY 6 HOURS NEEDED, Starting on Fri05/25/24 at 1835, Until Fri06/01/24 at 1843, Mouth Sores, Shake well. Expiration 7 days. Naloxone (NARCAN) injection 0.4 mg 0.4 mg, Intravenous, ADMINISTER DIRECTED, Starting on Cheryl 05/27/24 at 1516, Until Fri06/01/24 at 1843, Decreased responsiveness, respiratory insufficiency, Vial to bedside. Administer under direction of physician., Post-op/Post-Proc OLANZapine (zyPREXA) tablet 2.5 mg 2.5 mg, Oral, EVERY 6 HOURS NEEDED, Starting on Fri05/30/24 at 1206, Until Fri06/01/24 at 1842, Anxiety and agitation 1556 (Given - Provider: Sammie Nye, SHANNON) 1349 (Given - Provider: Guerda Srinivasan RN) Ondansetron 4mg/2ml (ZOFRAN) injection 4 mg 4 mg, Intravenous, EVERY 6 HOURS NEEDED, Starting on Fri05/30/24 at 1205, Until Fri06/01/24 at 1842, Nausea / Vomiting, Refractory Nausea Vomiting, 1st line oxyCODONE (ROXICODONE) oral solution 10 mg (CANCELED)(Linked Group 2) 10 mg, Oral, EVERY 4 HOURS NEEDED, Starting on Fri05/23/24 at 1230, Until Fri05/31/24 at 1119, Moderate Pain, Severe Pain, Higher dose may be administered if lower dose was previously documented as ineffective and did not result in adverse effects (RR<10, negative change in RASS of 2 or more). Decrease back to lower dose if patient has adverse effects or no PRN use in previous 12 hours. Hold for sedation. 0155 (Given - Provider: Zev Jerome RN)1554 (Given - Provider: Sammie Nye RN) 0023 (Given - Provider: Curtis Vivar RN) oxyCODONE (ROXICODONE) tablet 5 mg(Linked Group 3) 5 mg, Oral, EVERY 4 HOURS NEEDED, Starting on Fri05/31/24 at 1117, Until Fri06/01/24 at 1842, Severe Pain, Moderate Pain 1156 (Given - Provider: Priscilla Olguin RN)2148 (See Alternative - Provider: Júnior Carpenter RN) 0534 (Given - Provider: Júnior Carpenter RN) oxyCODONE HCl (ROXICODONE) tablet 10 mg(Linked Group 3) 10 mg, Oral, EVERY 4 HOURS NEEDED, Starting on Fri05/31/24 at 1117, Until Fri06/01/24 at 1842, Moderate Pain, Severe Pain 1156 (See Alternative - Provider: Priscilla Olguin RN)2148 (Given - Provider: Júnior Carpenter RN - Comment: med given per pt request) 0534 (See Alternative - Provider: Júnior Carpenter RN) Polyethylene glycol (MIRALAX) packet 17 g 17 g, Oral, DAILY NEEDED, Starting on Fri05/19/24 at 1547, Until Fri06/01/24 at 1843, Constipation 1st Line, Constipation If No Bowel Movement in 48 Hours 1256 (Given - Provider: Priscilla Olguin RN - Comment: pt request) Linked Groups Order Group 1: thiamine (B-1) 500 mg in Sodium chloride 0.9%, with overfill 65 mL (total volume) IVPBJump to med 500 mg, Intravenous, Administer over 30 Minutes, DAILY, 3 doses, First dose on Fri05/31/24 at 1215, Last dose on Fri06/02/24 at 0900 Followed by thiamine (B-1) 250 mg in Sodium chloride 0.9%, with overfill 62.5 mL (total volume) IVPBJump to med 250 mg, Intravenous, Administer over 30 Minutes, DAILY, 3 doses, First dose on Cheryl 06/03/24 at 0900, Last dose on 06/05/24 at 0900 Followed by Thiamine (Vitamin B-1) injection 100 mgJump to med 100 mg, Intravenous, DAILY, First dose on Fri06/06/24 at 0900, Until Discontinued Group 2: oxyCODONE (ROXICODONE) oral solution 5 mg (CANCELED) 5 mg, Oral, EVERY 4 HOURS NEEDED, Starting on Fri05/23/24 at 1230, Until Fri05/31/24 at 1119, Moderate Pain, Severe Pain, Use as initial dose. Higher dose may be administered if lower dose was previously documented as ineffective and did not result in adverse effects (RR<10, negative change in RASS of 2 or more). Or oxyCODONE (ROXICODONE) oral solution 10 mg (CANCELED)Jump to med 10 mg, Oral, EVERY 4 HOURS NEEDED, Starting on Fri05/23/24 at 1230, Until Fri05/31/24 at 1119, Moderate Pain, Severe Pain, Higher dose may be administered if lower dose was previously documented as ineffective and did not result in adverse effects (RR<10, negative change in RASS of 2 or more). Decrease back to lower dose if patient has adverse effects or no PRN use in previous 12 hours. Hold for sedation. Group 3: oxyCODONE (ROXICODONE) tablet 5 mgJump to med 5 mg, Oral, EVERY 4 HOURS NEEDED, Starting on Fri05/31/24 at 1117, Until Fri06/01/24 at 1842, Severe Pain, Moderate Pain Or oxyCODONE HCl (ROXICODONE) tablet 10 mgJump to med 10 mg, Oral, EVERY 4 HOURS NEEDED, Starting on Fri05/31/24 at 1117, Until Fri06/01/24 at 1842, Moderate Pain, Severe Pain FOR RECORDS PERTAINING TO PATIENTS WHO ARE [...] BE BASED ON THE PRIMARY CLINICAL RECORDS. [employer] [facility]. provides no warranty or guarantee of the accuracy or completeness of information in this document.
--- NOTE | 2024-06-02 05:43 | ECG_ITS ---
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
--- NOTE | 2024-06-02 06:16 | ED_ITS ---
HPI HPI - General Adult General Chief complaint: Shortness of Breath/Dyspnea Stated complaint: shortness of breath Time Seen by Provider: 06/02/24 05:08 Source: patient Mode of arrival: ambulance History of Present Illness HPI narrative: 63-year-old female to the emergency department chief complaint of shortness of breath. Patient reports she has had increasing shortness of breath over the last week. She was discharged 12 hours ago from the [facility]. She reports that she was there for a number of things. Patient reports that she has metastatic breast cancer. It is metastatic to her brain, spine, right femur, lungs, liver. She reports that they have stopped systemic therapy and are proceeding with radiation only. She believes her current treatment is aimed at her. She denies any new leg swelling. She denies cough, fever, sweats, chills. She has a Pleurx catheter in place on the right side. Related Data Home Medications ?Medication ?Instructions ?Recorded ?Confirmed anastrozole 1 mg tablet 1 mg 12/05/22 calcium 12/05/22 famotidine 20 mg tablet 20 mg 12/05/22 levothyroxine 75 mcg tablet 75 mcg PO DAILY 12/05/22 06/02/24 (Euthyrox) magnesium oxide 420 mg PO DAILY 12/05/22 06/02/24 omega 8-ino-upx-fish oil 1,200 mg 1,200 cap PO 12/05/22 (144 mg-216 mg) capsule (Fish Oil) vitamin d3 .3 times a week 12/05/22 acetaminophen 325 mg capsule 325 mg PO Q6H PRN pain 06/02/24 06/02/24 gabapentin 100 mg capsule mg 06/02/24 gabapentin 300 mg capsule mg 06/02/24 ibuprofen 800 mg tablet mg 06/02/24 loratadine 10 mg capsule (Allergy 10 mg PO DAILY 06/02/24 06/02/24 Relief (loratadine)) methadone 10 mg/mL oral concentrate mg 06/02/24 naloxone 4 mg/actuation nasal spray intranasal 06/02/24 occuvite 06/02/24 olanzapine 2.5 mg tablet mg 06/02/24 olanzapine 5 mg tablet mg 06/02/24 ondansetron 4 mg disintegrating 4 mg PO Q4H PRN nausea and vomiting 06/02/24 06/02/24 tablet oxycodone 10 mg tablet mg 06/02/24 oxycodone 5 mg tablet mg 06/02/24 polyethylene glycol 3350 17 gram g 06/02/24 oral powder packet ribociclib 600 mg/day (200 mg x 3) mg PO 06/02/24 tablets (Kisqali) senna 17.2 mg BID 06/02/24 Allergies Allergy/AdvReac Type Severity Reaction Status Date / Time codeine AdvReac Mild Vomiting Verified 06/02/24 05:18 Opioid HPI Opioid Management Most Recent Opioid Data: Last Pain Scale 4 03/25/24 22:36 03/25/24 Review of Systems ROS Status of ROS 10 or more systems reviewed and unremark able except as noted in history and below [facility] Social History Little interest or pleasure in doing things: not at all Feeling down, depressed, or hopeless: not at all Exam Narrative Exam Narrative: VITALS: I have reviewed the triage vital signs. GENERAL: Chronically ill-appearing adult female in no distress NEURO: Alert and oriented. Moves all extremities. Face is symmetric and expressive. EYES: PERRL. No scleral icterus or conjunctival injection. No discharge. HENT: Normocephalic, atraumatic. Hearing is grossly intact. Nares grossly patent and without discharge. Mucous membranes moist. NECK: No JVD. Patient moves neck without restriction. CARDIO: Rhythm regular. Normal rate. No murmur, rub, or gallop. Pulses equal bilaterally in the upper and lower extremity. No lower extremity edema. PULM: Managed on right greater than left. No wheezes, rales, rhonchi. Moderate conversational dyspnea. No increased work of breathing. GI/: Abdomen is soft and non-tender. Normoactive bowel sounds. EXTREMITIES: Symmetric muscle bulk. No joint swelling. No clubbing, cyanosis, or deformity. SKIN: Warm and dry. Normal turgor. No rash or lesions appreciated. PSYCH: Mood, affect, and interaction is appropriate to the setting. Constitutional Vital Signs, click to edit/add: Last Vital Signs Temp 97.5 F L 06/02/24 05:15 Pulse 101 H 06/02/24 05:15 Resp 18 06/02/24 05:15 BP 98/68 06/02/24 05:15 Pulse Ox 96 06/02/24 05:34 O2 Del Method Nasal Cannula 06/02/24 05:34 O2 Flow Rate 5 06/02/24 05:34 Course Vital Signs Vital signs: Vital Signs Temperature 97.5 F L 06/02/24 05:15 Pulse Rate 101 H 06/02/24 05:15 Respiratory Rate 18 06/02/24 05:15 Blood Pressure 98/68 06/02/24 05:15 Pulse Oximetry 97 06/02/24 05:15 Oxygen Delivery Method Nasal Cannula 06/02/24 05:15 Oxygen Delivery Flow Rate 5 06/02/24 05:15 Temperature 97.5 F L 06/02/24 05:15 Pulse Rate 101 H 06/02/24 05:15 Respiratory Rate 18 06/02/24 05:15 Blood Pressure 98/68 06/02/24 05:15 Pulse Oximetry 96 06/02/24 05:34 Oxygen Delivery Method Nasal Cannula 06/02/24 05:34 Oxygen Delivery Flow Rate 5 06/02/24 05:34 Medical Decision Making [facility] Narrative Medical decision making narrative: 63-year-old female to the emergency department with chief complaint of shortness of breath. Vital stable, the patient is afebrile. She is currently on 5 L nasal cannula, her baseline is 2-3. Diminished on the right. I did my best to review her recent notes from [facility] via [employer]. It appears as though she had an echocardiogram and had a moderate-sized pericardial effusion. She has had similar presentations to this facility in the past with enlargement of her pleural effusions. Basic labs ordered. Troponin EKG. BNP ordered to evaluate for evidence of heart failure. CT scan of the chest is ordered. Care was signed out to Dr. Laurent with CT results and disposition pending. Working diagnosis: Shortness of breath Metastatic breast cancer Acute on chronic hypoxemic respiratory failure Medical Records Medical records reviewed: Yes I reviewed the patient's medical records ECG Data Attestation: I personally reviewed and interpreted this ECG as follows: (Sinus tachycardia. No STEMI. Normal QTc. ) Critical Care Time Critical Care Time Critical Care Time: Yes Total Critical Care Time: 31 Attestation: Critical Care Procedure Note Authorized and Performed by: Carmelo Colindres DO Total critical care time: 31 min Due to a high probability of clinically significant, life threatening deterioration, the patient required my highest level of preparedness to intervene emergently and I personally spent this critical care time directly and personally managing the patient. This critical care time included obtaining a history; examining the patient; pulse oximetry; ordering and review of studies; arranging urgent treatment with development of a management plan; evaluation of patient's response to treatment; frequent reassessment; and, discussions with other providers. This critical care time was performed to assess and manage the high probability of imminent, life-threatening deterioration that could result in multi-organ failure. It was exclusive of separately billable procedures and treating other patients and teaching time. Please see MDM section and the rest of the note for further information on patient assessment and treatment. Discharge Plan Discharge Chief Complaint: Shortness of Breath/Dyspnea Clinical Impression: Shortness of breath Patient Disposition: Still a Patient Prescriptions / Home Meds: No Action anastrozole 1 mg tablet 1 mg famotidine 20 mg tablet 20 mg calcium magnesium oxide 400 mg magnesium capsule 420 mg PO DAILY omega 7-bqv-pac-fish oil [Fish Oil] 1,200 (144-216) mg capsule 1,200 cap PO vitamin d3 .3 times a week levothyroxine [Euthyrox] 75 mcg tablet 75 mcg PO DAILY polyethylene glycol 3350 17 gram powder in packet ibuprofen 800 mg tablet olanzapine 5 mg tablet olanzapine 2.5 mg tablet gabapentin 300 mg capsule gabapentin 100 mg capsule methadone 10 mg/mL concentrate oxycodone 5 mg tablet oxycodone 10 mg tablet naloxone 4 mg/actuation spray,non-aerosol INTRANASAL Kisqali 600 mg/day (200 mg x 3) tablet PO ondansetron 4 mg tablet,disintegrating 4 mg PO Q4H PRN (Reason: nausea and vomiting) Rx Instructions: give 1st dose 30min before emetogenic chemo senna 17.2 mg BID acetaminophen 325 mg capsule 325 mg PO Q6H PRN (Reason: pain) Allergy Relief (loratadine) 10 mg capsule 10 mg PO DAILY occuvite Print Language: Chinese Referrals: Anne-Marie Aguirre NP [Primary Care Provider] - 1 week
--- NOTE | 2024-06-02 06:24 | PC.NURSE ---
Many attempts were made to place an IV for patient by two nurses as well as nursing caddie supervisor. Physician aware. Physician may attempt ultrasound IV or day shift nurse if ultrasound certified for placement.
[2024-06-02 06:55] LABS: ABG PCO2 41.2 mmHg (35.0-45.0); Allen Test POSITIVE (POSITIVE); Base Excess ABG 1.1 mmol/L (-2.0-2.0); HCO3 ABG 25.8 mmol/L (22.0-26.0); O2 Mode NC; Oxygen Saturation ABG 98.2 %; pH ABG 7.404 (7.350-7.450)
[2024-06-02 06:56] LABS: Liters per Minute 4.5; Puncture Site RT RADIAL
--- NOTE | 2024-06-02 07:07 | PC.NURSE ---
Day shift nurse to take over care of patient. Nurse will attempt ultrasound guided IV. Report given to RN.
[2024-06-02 07:46] LABS: Basophils Absolute Auto 0.1 10^3/uL (0.0-0.1); Basophils Percent Auto 0.9 % (0.2-2.0); Eosinophils Absolute Auto 0.1 10^3/uL (0.0-0.7); Eosinophils Percent Auto 0.6 % (0.9-7.0); Hematocrit 31.6 % (36.0-48.0); Hemoglobin 10.3 g/dL (12.0-16.0); Immature Granulocytes Abs Auto 0.11 10^3/uL (0.00-0.03); Immature Granulocytes Pct Auto 1.4 % (0.0-0.5); Lymphocytes Absolute Auto 0.8 10^3/uL (1.2-3.8); Lymphocytes Percent Auto 9.8 % (20.5-60.0); Mean Corpuscular HGB Conc 32.6 g/dL (29.9-35.2); Mean Corpuscular Hemoglobin 29.3 pg (26.7-34.0); Mean Corpuscular Volume 89.8 fL (81.0-99.0); Mean Platelet Volume 8.7 fL (9.5-13.5); Monocytes Absolute Auto 0.5 10^3/uL (0.3-0.8); Monocytes Percent Auto 6.7 % (1.7-12.0); Neutrophils Absolute Auto 6.5 10^3/uL (1.4-6.5); Neutrophils Percent Auto 80.6 % (43.0-75.0); Platelet Count 462 10^3/uL (150-450); Red Blood Count 3.52 10^6/uL (4.20-5.40); Red Cell Distribution Width 15.2 % (11.0-15.0)
--- NOTE | 2024-06-02 08:00 | CT_ITS ---
[address] [address] Patient Name: SAMPSON MCKENNA MRN: [id number] date: 1960 Sex: F Assigned Patient Location: ER Current Patient Location: Accession/Order Number: [id number] Exam Date: 06/02/2024 08:25 Report Date: 06/02/2024 09:14 At the request of: YOSSI EASLEY Procedure: CT angio chest EXAMINATION: CT angio chest HISTORY: shortness of breath COMPARISON: No relevant comparison available. TECHNIQUE: Multi-planar CT images were created with IV contrast. Axial, Coronal, and Sagittal images. Dose reduction techniques were achieved by using automated exposure control and/or adjustment of mA and/or kV according to patient size and/or use of iterative reconstruction technique. FINDINGS: LUNGS: Mild centrilobular and paraseptal emphysema with an upper lobe predominance. Partial consolidation of the right lower lobe with presence of air bronchograms. Right chest tube. Partial consolidation of the left lower lobe. PLEURA: Multilocular right pleural effusion measuring up to 6.4 cm. Right pleural thickening Moderate left pleural effusion measuring up to 5.6 cm. VASCULATURE: Normal postcontrast opacification of the central pulmonary arterial tree with no filling defects to suggest a pulmonary embolus STACIA: Right hilar lymphadenopathy MEDIASTINUM: Prevascular pretracheal and subcarinal lymph nodes CARDIAC: No enlargement. Pericardial effusion measuring up to 1.8 cm. Coronary arteries: Absent calcifications AORTA: No aortic aneurysm or dissection. Calcific atherosclerosis CHEST WALL: No mass or axillary adenopathy. BONES: No bone lesion or fracture. LIMITED ABDOMEN: No suspicious findings. Limited images of the upper abdomen. OTHER: Negative. CT/CT angio chest IMPRESSION: No central pulmonary thromboembolic disease 1.8 cm pericardial effusion Partial consolidation of both lower lobes right greater than left 6.4 cm multilocular right pleural effusion with pleural thickening Left pleural effusion Electronically authenticated by: RANJANA ZHANG Date: 06/02/2024 09:14
[2024-06-02 08:06] LABS: Anion Gap 12.8; Calcium 8.5 mg/dL (8.5-10.1); Carbon Dioxide 27.4 mmol/L (21.0-32.0); Chloride 88 mmol/L (98-107); Estimated GFR (African America >60 (>=60 mL/min/1.73m^2); Estimated GFR (Non-African Ame >60 (>=60 mL/min/1.73m^2); Glucose 71 mg/dL (74-106); Potassium 4.2 mmol/L (3.5-5.1); Troponin I High Sensitivity 6.5 pg/mL (4.0-51.3)
[2024-06-02 08:10] LABS: Sodium 124 mmol/L (136-145)
[2024-06-02] MEDS: OXYCODONE HCL/ACETAMINOPHEN 5MG/325MG 1 TAB PO (08:10)
[2024-06-02 12:41] LABS: Partial Thromboplastin Time 28.3 sec (22.3-36.2); Prothrombin Time 10.6 sec (9.0-11.6)
== END 2024-06-02 14:18 | disposition home or self-care (01) ==
PROVIDERS: Emergency Provider Student in an Organized Health Care Education/Training Program; PCP Nurse Practitioner
DX: R06.02 Shortness of breath (principal); I31.39 Other pericardial effusion (noninflammatory); J90 Pleural effusion, not elsewhere classified; E87.1 Hypo-osmolality and hyponatremia; E86.0 Dehydration; E16.2 Hypoglycemia, unspecified; R41.0 Disorientation, unspecified
CPT/HCPCS: 36415; 36600; 71275; 80048; 82805; 83880; 84484; 85025; 85610; 85730; 93005; 99285; Q9967